=== PATIENT | male | born 1955 | race Caucasian/White ===

== ENCOUNTER 2020-08-24 14:48 | Outpatient (REF) | payer OTHER, SELFPAY ==
[2020-08-24 15:14] LABS: MANUAL DIFF FLAG NO
[2020-08-24 15:16] LABS: Basophils Absolute Auto 0.1 X10*3/uL (0.0-0.2); Basophils Percent Auto 0.4 % (0-2); Eosinophils Absolute Auto 0.4 X10*3/uL (0.0-0.4); Eosinophils Percent Auto 3.4 % (0-4); Hematocrit 35.3 % (42-52); Hemoglobin 11.6 g/dl (14.0-18.0); Imm Gran Abs Auto 0.17 X10*3/uL (0.00-0.03); Imm Gran Pct Auto 1.5 % (0.0-0.4); Lymphocytes Absolute Auto 3.5 X10*3/uL (1.2-4.9); Lymphocytes Percent Auto 31.2 % (20-40); Mean Corpuscular HGB Conc 32.9 g/dl (31.0-36.0); Mean Corpuscular Hemoglobin 32.7 pg (27.0-33.0); Mean Corpuscular Volume 99.4 fL (80-98); Mean Platelet Volume 10.3 fL (9.4-12.4); Monocytes Absolute Auto 1.4 X10*3/uL (0.1-1.2); Neutrophils Absolute Auto 5.8 X10*3/uL (2.0-8.3); Neutrophils Percent Auto 51.5 % (45-73); Platelet Count 321 X10*3/uL (160-400); Red Blood Count 3.55 X10*6/uL (4.60-5.80); Red Cell Distribution Width 17.3 % (11.0-16.0); White Blood Count 11.2 X10*3/uL (4.8-10.8)
[2020-08-24 15:42] LABS: Anion Gap 13 (12-20); Blood Urea Nitrogen 12 mg/dL (9-16); Calcium 8.8 mg/dL (8.4-10.2); Carbon Dioxide 31 mmol/L (22-29); Chloride 101 mmol/L (96-108); Estimated Glomerular Filt Rate > 60; Potassium 4.9 mmol/L (3.3-5.1); Sodium 140 mmol/L (135-145)
[2020-08-24 16:03] LABS: Thyroid Stimulating Hormone 1.17 uIU/mL (0.32-4.0)
== END 2020-08-24 14:49 | disposition home or self-care (01) ==
LOC: HO.LAB 14:48
PROVIDERS: Visit Provider Internal Medicine Hypertension Specialist
DX: N18.30 Chronic kidney disease, stage 3 unspecified (principal)
CPT/HCPCS: 36415; 80051; 82310; 82565; 84443; 84520; 85025

== ENCOUNTER 2021-04-07 14:49 | Outpatient (REF) | payer OTHER, SELFPAY ==
[2021-04-07 15:41] LABS: Anion Gap 10 (12-20); Blood Urea Nitrogen 11 mg/dL (9-16); Calcium 9.2 mg/dL (8.4-10.2); Carbon Dioxide 29 mmol/L (22-29); Chloride 106 mmol/L (96-108); Estimated Glomerular Filt Rate > 60; Glucose Random 95 mg/dL (60-115); Potassium 4.5 mmol/L (3.3-5.1); Sodium 140 mmol/L (135-145)
== END 2021-04-07 14:50 | disposition home or self-care (01) ==
LOC: HO.LAB 14:49
PROVIDERS: PCP Internal Medicine; Visit Provider Internal Medicine Hypertension Specialist
DX: I10 Essential (primary) hypertension (principal)
CPT/HCPCS: 36415; 80048

== ENCOUNTER 2021-06-24 14:22 | Emergency (ER) | payer OTHER, SELFPAY ==
--- NOTE | ~2021-06-24 | XR_ITS ---
EXAMINATION: XR CHEST CLINICAL INFORMATION: Pain COMPARISON: None TECHNIQUE: 2 views of the chest were obtained. FINDINGS: Cardiac leads overlie the chest. Prominent fat pad along the right cardiophrenic margin. No consolidation, edema, or effusion. No pneumothorax. The cardiomediastinal silhouette is normal in size. No acute osseous abnormality. XR/XR chest 2V IMPRESSION: No acute pulmonary finding.
--- NOTE | ~2021-06-24 | CT_ITS ---
EXAMINATION: CT CERVICAL SPINE WITHOUT CONTRAST CLINICAL INFORMATION: Fall with trauma COMPARISON: None TECHNIQUE: Axial CT scanning of the cervical spine without intrathecal contrast. Coronal and sagittal reconstructions. This CT examination was performed using dose optimization techniques as appropriate, variously including the following: *Automated exposure control *Adjustment of mA and/or kV according to patient size (this includes techniques or standardized protocols for targeted exams where dose is matched to indication/reason for exam; i.e. extremities or head) *Use of iterative reconstruction technique DLP: 384.53 mGy-cm FINDINGS: There is a left-sided subcutaneous air present within the scalp. The pterygoid plates are noted to be fractured bilaterally. Visualized mastoid air cells and paranasal sinuses are aerated. Paraspinal muscle fat planes are maintained. Lung apices unremarkable. No acute cervical spine fracture is identified. There is severe narrowing of the C6-C7 disc space with marginal spurring and some bilateral anterior neural foraminal encroachment from spurring of the joints of Luschka. There is some mild degenerative spurring present at C4-T1. CT/CT cervical spine wo con IMPRESSION: Bilateral pterygoid plate fractures No acute cervical spine fracture.
--- NOTE | ~2021-06-24 | CT_ITS ---
EXAMINATION: CT HEAD, NONCONTRAST CT FACIAL BONES CLINICAL INFORMATION: Fall, trauma COMPARISON: None TECHNIQUE: Contiguous axial imaging was performed from the skull base to vertex without intravenous administration of contrast. Axial CT facial bones also performed without contrast. Additional 2-D coronal and sagittal reformatted images are generated on the CT workstation for both exams and uploaded to PACS. This CT examination was performed using dose optimization techniques as appropriate, variously including the following: *Automated exposure control *Adjustment of mA and/or kV according to patient size (this includes techniques or standardized protocols for targeted exams where dose is matched to indication/reason for exam; i.e. extremities or head) *Use of iterative reconstruction technique DLP: 792 mGy-cm (head) 392 mGy-cm (facial) FINDINGS: CT head: There is no intracranial hemorrhage, hematoma, or extra-axial fluid collection. The ventricles are normal in size. There is no hydrocephalus, edema, or mass effect. The alex-white matter differentiation appears well preserved . There is no visible acute territorial infarct or mass lesion. The calvarium appears intact. There is no pneumocephalus. The middle ears and mastoids are well-aerated and clear. CT facial bones: There are multiple bilateral fractures mid face. There are comminuted fractures of the left and right nasal bones with leftward displacement. The pterygoid plates are both fractured. There are bilateral fractures of the maxillary sinuses, including bilateral anterior cruz and medial and posterior lateral cruz. The orbital rims and floors appear intact. The zygomatic arches appear intact. No visible mandible fracture. Anterior maxillary spine intact. The globes and retrobulbar soft tissues are unremarkable. No orbital hematoma or orbital emphysema. Extensive subcutaneous emphysema extends from the left maxillary sinus fracture around the left lateral face and upward within the left lateral scalp soft tissues. There is lesser subcutaneous emphysema bilateral anterior cheeks. Bilateral maxillary sinus fluid levels. Parapharyngeal soft tissues are unremarkable. Craniocervical junction unremarkable. CT/CT facial bones wo con IMPRESSION: 1. Multiple bilateral fractures mid face including nasal bones, pterygoid plates, and bilateral maxillary sinuses. Extensive subcutaneous emphysema on left, lesser on right. 2. No acute intracranial hemorrhage. Brain unremarkable. Calvarium appears intact.
--- NOTE | ~2021-06-24 | XR_ITS ---
EXAMINATION: XR HAND, RIGHT CLINICAL INFORMATION: Pain. Trauma. COMPARISON: None TECHNIQUE: PA, lateral, and oblique views of the right hand. FINDINGS: No fracture or dislocation. Alignment is anatomic. Joint spaces are maintained. Prominent dorsal soft tissue swelling at the metacarpophalangeal joint level. XR/XR hand RT min 3V IMPRESSION: Soft tissue swelling at the dorsum of the hand. No fracture or malalignment.
[2021-06-24 14:38] VITALS: BP 133/74; PULSE 55; O2SAT 100
[2021-06-24 14:47] VITALS: BP 128/76; PULSE 54; RESP 18; TEMP 36.9; O2SAT 99; BMI 21.7
--- NOTE | 2021-06-24 15:01 | ECG_ITS ---
Test Reason : PREVIOUS STEMI Blood Pressure : / mmHG Vent. Rate : 057 BPM Atrial Rate : 000 BPM P-R Int : 000 ms QRS Dur : 152 ms QT Int : 504 ms P-R-T Axes : 000 031 052 degrees QTc Int : 490 ms Artifact in tracing Probably sinus rhythm Right bundle branch block Cannot rule out Inferior infarct , age undetermined Abnormal ECG No previous ECGs available Referred By: Inderjit Alegria Electronically Signed By:REX BLANCHARD
--- NOTE | 2021-06-24 15:04 | ED_ITS ---
HPI - Fall General Chief Complaint: Fall Stated Complaint: TRIP W/FALL ON FACE Time Seen by Provider: 06/24/21 15:01 Source: patient Limitations: no limitations History of Present Illness HPI Narrative: Patient presents to the ER after recent fall. Patient was brought via EMS for emergent care. Patient states he tripped on some sand check be on the sidewalk. Landing on his right hand and face planning. Positive nasal swelling of the lip swelling and bleeding. Positive bleeding to the right hand and pain. Patient denies loss of consciousness although he is a difficult historian. Patient states he has a history of OK in the past. Patient denies headache. Patient's symptoms are moderate pain is 7/10 and states his face hurt it is his hand hurts. Patient is unsure if he is on blood thinners. 3:34 p.m. Elvira has arrived in his helpful in the history. believes patient likely fell secondary to the twitching or is he having some petite mal seizures. approximately 1 and half years ago suffered an OK in her rest and CPR was not immediately performed. Patient recovered from the OK but does have a history of anoxic brain injury. Patient also has a known seizure disorder which he is seen by Dr. Hernandez for has been having worsening twitching lately in question seizures. Patient is on 200 mg of lamotrigine a day. For seizures. Related Data Previous Rx's Medication Instructions Recorded oxycodone-acetaminophen 5 mg-325 1 tab PO Q4-6H PRN #20 tab 06/24/21 mg tablet (Percocet) Allergies Allergy/AdvReac Type Severity Reaction Status Date / Time No Known Allergies Allergy Unverified 03/19/20 16:05 Review of Systems Constitutional: Constitutional: Denies chills, Denies fever(s), Denies headache(s) and Denies malaise Eyes: Eyes: Denies diplopia and Denies loss of vision ENT: Denies headache(s) and Reports nose pain Cardiovascular: Cardiovascular: Denies chest pain and Denies dyspnea Respiratory: Respiratory: Denies cough and Denies dyspnea Gastrointestinal: Gastrointestinal: Denies nausea and Denies vomiting Musculoskeletal: Comments: Right hand pain Neurologic: Denies headache(s) and Denies loss of vision [facility] Past Medical History Medical History Cardiac arrest Social History Social History Advance Directives: No Advance Directives Information Provided: Yes Physical Exam Vital Signs: Vital Signs: Last Vital Signs Temp 98.4 F 06/24/21 14:47 Pulse 58 06/24/21 17:23 Resp 16 06/24/21 17:23 BP 127/77 06/24/21 17:23 Pulse Ox 100 06/24/21 17:23 BMI result Body Mass Index 21.7 vital signs have been reviewed as normal and appeared to be correct. Blood pressure normal. Heart rate normal. Respiration rate normal. Temperature normal. Oxygen saturation normal. Appearance: Alert. Oriented X3. No acute distress. Head: Normal external exam. Patient has an abrasion noted on the upper lip. Eyes: PERRLA. EOMI. No sign of entrapment ENT: Oropharynx is clear positive nasal swelling bloody discharge from nasal nares no septal hematoma noted. Diffuse facial tenderness. Front upper incisor positive tooth chipped slight tenderness to the touch no obvious oral laceration noted in the oral pharynx. Chipped tooth likely 8 or 9 Neck: Patient has no midline tenderness on cervical exam range of motion is somewhat decreased. CVS: Heart regular rate and rhythm no murmurs and rubs Respiratory: Breath sounds are clear to auscultation bilaterally. No accessory muscle use noted. Abdomen: Soft nontender abdomen is flat no rebound or guarding no ecchymosis noted Back: Full range of motion of back. Skin: Abrasion noted to the upper lip. Slight abrasion noted to the nasal bridge. Extremities: Right dorsum of the hand is ecchymotic some abrasions noted to the 2nd 3rd and 4th MCPs positive tenderness Neuro: Patient is alert oriented tribal delegate is equal bilaterally patient has a tremor on the right side is at baseline. 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 CTs of the head face neck are pending. EKG and lab work is pending. Will attempt to get in touch with patient's secondary to patient being a poor historian. Will also check orthostatics at this time. 3:36 p.m. is here at this time is very helpful historian. Patient is on Plavix and aspirin daily unknown if there is any medications such as Coumadin or other anticoagulants. 4:45 p.m. case discussed with Dr. Frazier will call [facility] [place] line discussed case with Trauma at this time. We will upload CT scans and plain films at this time. For evaluation 5:51 p.m. Awaiting callback from [facility] [place]. Patient does have noted have elevated white count with no obvious source chest x-ray is negative UA is negative question secondary to her trauma. 6:20 p.m. Call placed to [facility] [place] line the images have been uploaded they will be calling us back shortly. 6:33 p.m. case discussed with oral maxillofacial positive surgeon Dr. Jesus Hi from [facility] – [place] at this time patient does not warrant a trauma transfer. Dr. Hi will be able see him in follow-up. Recommends Augmentin on an an algesic. Also case discussed with patient and if symptoms worsen to return to return. Dr. Hi will be able see the patient Monday next week. 10 mg oxycodone p.o. [place] reviewed no prescriptions fine. - Fall Lab Data Result diagrams: 06/24/21 15:45 06/24/21 15:45 Labs: Lab Results 06/24/21 06/24/21 06/24/21 Range/Units 15:45 15:45 15:45 WBC 15.5 H (4.8-10.8) X10*3/uL RBC 3.67 L (4.60-5.80) X10*6/uL Hgb 11.1 L (14.0-18.0) g/dl Hct 34.6 L (42.0-52.0) % MCV 94.3 (80.0-98.0) fL MCH 30.2 (27.0-33.0) pg MCHC 32.1 (31.0-36.0) g/dl RDW 16.7 H (11.0-16.0) % Plt Count 436 H (160-400) X10*3/uL MPV 9.6 (9.4-12.4) fL Immature Gran % (Auto) 0.5 H (0.0-0.4) % Neut % (Auto) 81.0 H (45-73) % Lymph % (Auto) 13.1 L (20-40) % [place] % (Auto) 4.8 (2-11) % Eos % (Auto) 0.4 (0-4) % Baso % (Auto) 0.2 (0-2) % Lymph # (Auto) 2.0 (1.2-4.9) X10*3/uL [place] # (Auto) 0.8 (0.1-1.2) X10*3/uL Eos # (Auto) 0.1 (0.0-0.4) X10*3/uL Baso # (Auto) 0.0 (0.0-0.2) X10*3/uL Abs Immat Gran (auto) 0.07 H (0.00-0.03) X10*3/uL Absolute Neuts (auto) 12.6 H (2.0-8.3) x10*3/uL Absolute Nucleated RBC 0.000 (0.0-0.012) X10*3/uL Nucleated RBC % (auto) 0.0 (0.0-0.2) /100WBC PT (9.9-13.0) SEC INR (0.9-1.1) Sodium 141 (135-145) mmol/L Potassium 4.7 (3.3-5.1) mmol/L Chloride 109 H (96-108) mmol/L Carbon Dioxide 27 (22-29) mmol/L Anion Gap 10 L (12-20) BUN 14 (9-16) mg/dL Creatinine 1.00 (0.5-1.4) mg/dL Estim Creat Clear Calc 80.0 Estimated GFR > 60 Random Glucose 99 (60-115) mg/dL Calcium 8.9 (8.4-10.2) mg/dL Total Bilirubin 0.4 (0.0-1.0) mg/dL AST 38 H (5-37) U/L ALT 52 H (0-40) U/L Alkaline Phosphatase 149 H (39-117) U/L Troponin I High Sens < 3.5 (<3.5-35.0) ng/L Total Protein 6.9 (6.5-8.0) g/dL Albumin 4.1 (3.5-5.0) g/dL Urine Color Urine Appearance Urine pH (5.0-8.0) Ur Specific [place] (1.005-1.025) Urine Protein (NEG-TRACE) MG/DL Urine Glucose (UA) (NEG) MG/DL Urine Ketones (NEG) MG/DL Urine Blood (NEG) Urine Nitrite (NEG) Ur Leukocyte Esterase (NEG) 06/24/21 06/24/21 Range/Units 15:45 17:22 WBC (4.8-10.8) X10*3/uL RBC (4.60-5.80) X10*6/uL Hgb (14.0-18.0) g/dl Hct (42.0-52.0) % MCV (80.0-98.0) fL MCH (27.0-33.0) pg MCHC (31.0-36.0) g/dl RDW (11.0-16.0) % Plt Count (160-400) X10*3/uL MPV (9.4-12.4) fL Immature Gran % (Auto) (0.0-0.4) % Neut % (Auto) (45-73) % Lymph % (Auto) (20-40) % [place] % (Auto) (2-11) % Eos % (Auto) (0-4) % Baso % (Auto) (0-2) % Lymph # (Auto) (1.2-4.9) X10*3/uL [place] # (Auto) (0.1-1.2) X10*3/uL Eos # (Auto) (0.0-0.4) X10*3/uL Baso # (Auto) (0.0-0.2) X10*3/uL Abs Immat Gran (auto) (0.00-0.03) X10*3/uL Absolute Neuts (auto) (2.0-8.3) x10*3/uL Absolute Nucleated RBC (0.0-0.012) X10*3/uL Nucleated RBC % (auto) (0.0-0.2) /100WBC PT 11.6 (9.9-13.0) SEC INR 1.0 (0.9-1.1) Sodium (135-145) mmol/L Potassium (3.3-5.1) mmol/L Chloride (96-108) mmol/L Carbon Dioxide (22-29) mmol/L Anion Gap (12-20) BUN (9-16) mg/dL Creatinine (0.5-1.4) mg/dL Estim Creat Clear Calc Estimated GFR Random Glucose (60-115) mg/dL Calcium (8.4-10.2) mg/dL Total Bilirubin (0.0-1.0) mg/dL AST (5-37) U/L ALT (0-40) U/L Alkaline Phosphatase (39-117) U/L Troponin I High Sens (<3.5-35.0) ng/L Total Protein (6.5-8.0) g/dL Albumin (3.5-5.0) g/dL Urine Color YELLOW Urine Appearance HAZY Urine pH 7.0 (5.0-8.0) Ur Specific [place] 1.020 (1.005-1.025) Urine Protein NEG (NEG-TRACE) MG/DL Urine Glucose (UA) NEG (NEG) MG/DL Urine Ketones NEG (NEG) MG/DL Urine Blood NEG (NEG) Urine Nitrite NEG (NEG) Ur Leukocyte Esterase NEG (NEG) Imaging Data CT neck: Radiologist's impression: [place] [address] CT Scan Report Signed Patient: Will Nam MR#: [id number] : 1955 Acct:[id number] Age/Sex: 65 / M ADM Date: 06/24/21 Loc: .ED Attending Dr: Ordering Physician: Inderjit Alegria Date of Service: 06/24/21 Procedure(s): CT cervical spine wo con Accession Number(s): [id number] cc: Inderjit Alegria ~ EXAMINATION: CT CERVICAL SPINE WITHOUT CONTRAST CLINICAL INFORMATION: Fall with trauma? COMPARISON: None? TECHNIQUE: Axial CT scanning of the cervical spine without intrathecal contrast. Coronal and sagittal reconstructions.? This CT examination was performed using dose optimization techniques as appropriate, variously including the following: *Automated exposure control *Adjustment of mA and/or kV according to patient size (this includes techniques or standardized protocols for targeted exams where dose is matched to indication/reason for exam; i.e. extremities or head) *Use of iterative reconstruction technique DLP: 384.53 mGy-cm FINDINGS: There is a left-sided subcutaneous air present within the scalp. The pterygoid plates are noted to be fractured bilaterally. Visualized mastoid air cells and paranasal sinuses are aerated. Paraspinal muscle fat planes are maintained. Lung apices unremarkable. No acute cervical spine fracture is identified. There is severe narrowing of the C6-C7 disc space with marginal spurring and some bilateral anterior neural foraminal encroachment from spurring of the joints of Luschka. There is some mild degenerative spurring present at C4-T1. CT/CT cervical spine wo con IMPRESSION: Bilateral pterygoid plate fractures ? No acute cervical spine fracture.? ? ? Dictated By: Kiran Beaver MD Signed By: <Electronically signed by Kiran Beaver MD in OV> 06/24/21 1644 DD/ 1559 TD/TT:? [employer]: CT scan - head: Radiologist's impression: [address] [address] [address] Scan Report Signed Patient: Will Nam MR#: [id number] : 1955 Acct:[id number] Age/Sex: 65 / M ADM Date: 06/24/21 Loc: .ED Attending Dr: Ordering Physician: Inderjit Alegria Date of Service: 06/24/21 Procedure(s): CT facial bones wo con Accession Number(s): [id number] cc: Inderjit Alegria ~ EXAMINATION: CT HEAD, NONCONTRAST CT FACIAL BONES CLINICAL INFORMATION: Fall, trauma? COMPARISON: None? TECHNIQUE: Contiguous axial imaging was performed from the skull base to vertex without intravenous administration of contrast. Axial CT facial bones also performed without contrast. Additional 2-D coronal and sagittal reformatted images are generated on the CT workstation for both exams and uploaded to PACS. This CT examination was performed using dose optimization techniques as appropriate, variously including the following: *Automated exposure control *Adjustment of mA and/or kV according to patient size (this includes techniques or standardized protocols for targeted exams where dose is matched to indication/reason for exam; i.e. extremities or head) *Use of iterative reconstruction technique DLP: 792 mGy-cm (head) 392 mGy-cm (facial) FINDINGS: CT head: There is no intracranial hemorrhage, hematoma, or extra-axial fluid collection.? The ventricles are normal in size. There is no hydrocephalus, edema, or mass effect.? The alex-white matter differentiation appears well preserved . There is no visible acute territorial infarct or mass lesion. The calvarium appears intact. There is no pneumocephalus. The middle ears and mastoids are well-aerated and clear. CT facial bones: There are multiple bilateral fractures mid face. There are comminuted fractures of the left and right nasal bones with leftward displacement. The pterygoid plates are both fractured. There are bilateral fractures of the maxillary sinuses, including bilateral anterior cruz and medial and posterior lateral cruz. The orbital rims and floors appear intact. The zygomatic arches appear intact. No visible mandible fracture. Anterior maxillary spine intact. The globes and retrobulbar soft tissues are unremarkable. No orbital hematoma or orbital emphysema. Extensive subcutaneous emphysema extends from the left maxillary sinus fracture around the left lateral face and upward within the left lateral scalp soft tissues. There is lesser subcutaneous emphysema bilateral anterior cheeks. Bilateral maxillary sinus fluid levels. Parapharyngeal soft tissues are unremarkable. Craniocervical junction unremarkable. CT/CT facial bones wo con IMPRESSION: 1. Multiple bilateral fractures mid face including nasal bones, pterygoid plates, and bilateral maxillary sinuses. Extensive subcutaneous emphysema on left, lesser on right. ? 2. No acute intracranial hemorrhage. Brain unremarkable. Calvarium appears intact. ? Dictated By: Will Hayden MD Signed By: <Electronically signed by Will Hayden MD in OV> 06/24/21 1631 DD/ 1559 TD/TT:? [employer]: [facility] Chest x-ray: Radiologist's impression: [address] [address] XRay Report Signed Patient: Will Nam MR#: [id number] : 1955 Acct:[id number] Age/Sex: 65 / M ADM Date: 06/24/21 Loc: HO.ED Attending Dr: Ordering Physician: Inderjit Alegria Date of Service: 06/24/21 Procedure(s): XR chest 2V Accession Number(s): [id number] cc: Inderjit Alegria ~ EXAMINATION: XR CHEST CLINICAL INFORMATION: Pain COMPARISON: None TECHNIQUE: 2 views of the chest were obtained. FINDINGS: Cardiac leads overlie the chest. Prominent fat pad along the right cardiophrenic margin. No consolidation, edema, or effusion. No pneumothorax. The cardiomediastinal silhouette is normal in size. No acute osseous abnormality. XR/XR chest 2V IMPRESSION: No acute pulmonary finding. Dictated By: Tony Westfall MD Signed By: <Electronically signed by Tony Westfall MD in OV> 06/24/211653 DD/ 163 TD/TT:? [employer]: RADHA hand: Radiologist's impression: [address] [address] XRay Report Signed Patient: Will Nam MR#: [id number] : 1955 Acct:[id number] Age/Sex: 65 / M ADM Date: 06/24/21 Loc: .ED Attending Dr: Ordering Physician: Inderjit Alegria Date of Service: 06/24/21 Procedure(s): XR hand RT min 3V Accession Number(s): [id number] cc: Inderjit Alegria ~ EXAMINATION: XR HAND, RIGHT CLINICAL INFORMATION: Pain. Trauma.? COMPARISON: None? TECHNIQUE: PA, lateral, and oblique views of the right hand. FINDINGS: No fracture or dislocation. Alignment is anatomic. Joint spaces are maintained. Prominent dorsal soft tissue swelling at the metacarpophalangeal joint level.? XR/XR hand RT min 3V IMPRESSION: Soft tissue swelling at the dorsum of the hand. No fracture or malalignment. Dictated By: Tony Westfall MD Signed By: <Electronically signed by Tony Westfall MD in OV> 06/24/211653 DD/ 1634 TD/TT:? [employer]: RADHA ECG Data ECG interpretation date: 06/24/21 ECG interpretation time: 15:38 Prior ECG tracings: not available for review Interpretation: Patient's EKG is 59 with a right bundle branch block no previous to compare at this time. Discharge Plan Discharge Clinical Impression: Closed pterygoid plate fracture Fracture of nasal bone Qualifiers: Encounter type: initial encounter Fracture type: closed Qualified Code(s): S02.2XXA - Fracture of nasal bones, initial encounter for closed fracture Closed fracture of maxillary sinus Qualifiers: Encounter type: initial encounter Qualified Code(s): S02.401A - Maxillary fracture, unspecified side, initial encounter for closed fracture Patient Disposition: Home, Self-Care Instructions: Facial Fracture (ED) Additional Instructions: Call Dr. Hi for follow-up [address] [place] [address] Dr [place], [place] [address] Your case and images were reviewed by Dr. Hi plastic surgery If symptoms worsen return to the ER Return if increase headache or pain. Take antibiotics and analgesics as directed Rest ice soft diet Watch for signs of cerebral spinal fluid leak such as clear discharge from the nose. Prescriptions: New oxycodone-acetaminophen [Percocet] 5-325 mg tablet 1 tab PO Q4-6H PRN (Reason: severe pain (scale score 7-10)) Qty: 20 RF: 0
[2021-06-24 15:55] LABS: MANUAL DIFF FLAG NO
[2021-06-24 15:57] LABS: Basophils Percent Auto 0.2 % (0-2); Eosinophils Absolute Auto 0.1 X10*3/uL (0.0-0.4); Eosinophils Percent Auto 0.4 % (0-4); Hematocrit 34.6 % (42.0-52.0); Hemoglobin 11.1 g/dl (14.0-18.0); Imm Gran Abs Auto 0.07 X10*3/uL (0.00-0.03); Imm Gran Pct Auto 0.5 % (0.0-0.4); Lymphocytes Percent Auto 13.1 % (20-40); Mean Corpuscular HGB Conc 32.1 g/dl (31.0-36.0); Mean Corpuscular Hemoglobin 30.2 pg (27.0-33.0); Mean Corpuscular Volume 94.3 fL (80.0-98.0); Mean Platelet Volume 9.6 fL (9.4-12.4); Monocytes Absolute Auto 0.8 X10*3/uL (0.1-1.2); Monocytes Percent Auto 4.8 % (2-11); Neutrophils Absolute Auto 12.6 x10*3/uL (2.0-8.3); Platelet Count 436 X10*3/uL (160-400); Red Blood Count 3.67 X10*6/uL (4.60-5.80); Red Cell Distribution Width 16.7 % (11.0-16.0); White Blood Count 15.5 X10*3/uL (4.8-10.8)
[2021-06-24 16:02] LABS: Prothrombin Time 11.6 SEC (9.9-13.0)
[2021-06-24 16:12] LABS: Alanine Aminotransferase 52 U/L (0-40); Albumin Level 4.1 g/dL (3.5-5.0); Alkaline Phosphatase 149 U/L (39-117); Anion Gap 10 (12-20); Aspartate Amino Transferase 38 U/L (5-37); Bilirubin Total 0.4 mg/dL (0.0-1.0); Blood Urea Nitrogen 14 mg/dL (9-16); Calcium 8.9 mg/dL (8.4-10.2); Carbon Dioxide 27 mmol/L (22-29); Chloride 109 mmol/L (96-108); Estimated Glomerular Filt Rate > 60; Glucose Random 99 mg/dL (60-115); Potassium 4.7 mmol/L (3.3-5.1); Sodium 141 mmol/L (135-145); Total Protein 6.9 g/dL (6.5-8.0)
[2021-06-24 16:16] LABS: Troponin-I High Sensitivity < 3.5 ng/L (<3.5-35.0)
[2021-06-24 17:23] VITALS: BP 127/77; PULSE 58; RESP 16; O2SAT 100
[2021-06-24 17:43] LABS: Appearance Urine HAZY; Color Urine YELLOW; Glucose Urine UA NEG (NEG); Leukocyte Esterase Urine NEG (NEG); Nitrite Urine NEG (NEG); Urine Blood NEG (NEG); Urine Ketones NEG (NEG); Urine Protein NEG (NEG-TRACE)
[2021-06-24] MEDS: Amoxicillin/Potassium Clav 875 MG TABLET PO (18:59)
[2021-06-24] MEDS: oxyCODONE HCl Immed Release 5 MG TABLET 10 MG PO (18:59)
[2021-06-29 20:27] LABS: Lamotrigine Lamictal 11.9 mcg/mL (4.0-18.0)
== END 2021-06-24 19:20 | disposition home or self-care (01) ==
PROVIDERS: Physician Assistant; Emergency Provider Emergency Medicine
DX: S02.2XXA Fracture of nasal bones, initial encounter for closed fracture (principal); S02.401A Maxillary fracture, unspecified side, initial encounter for closed fracture; S02.19XA Other fracture of base of skull, initial encounter for closed fracture; G40.909 Epilepsy, unspecified, not intractable, without status epilepticus; Z86.74 Personal history of sudden cardiac arrest; Z79.02 Long term (current) use of antithrombotics/antiplatelets; Z79.82 Long term (current) use of aspirin; Z79.899 Other long term (current) drug therapy; W01.0XXA Fall on same level from slipping, tripping and stumbling without subsequent striking against object, initial encounter; Y93.9 Activity, unspecified; Y92.9 Unspecified place or not applicable; Y99.9 Unspecified external cause status
CPT/HCPCS: 36415; 70450; 70486; 71046; 72125; 73130; 80053; 80175; 81003; 84484; 85025; 85610; 93005; 99284

== ENCOUNTER 2021-09-08 14:59 | Outpatient (REF) | payer OTHER, SELFPAY ==
[2021-09-13 08:22] LABS: Lamotrigine Lamictal 16.9 mcg/mL (4.0-18.0)
== END 2021-09-08 15:00 | disposition home or self-care (01) ==
LOC: HO.LAB 14:59
PROVIDERS: PCP Internal Medicine; Visit Provider Psychiatry & Neurology Neurology
DX: G93.1 Anoxic brain damage, not elsewhere classified (principal); G40.909 Epilepsy, unspecified, not intractable, without status epilepticus; Z79.899 Other long term (current) drug therapy
CPT/HCPCS: 36415; 80175

== ENCOUNTER 2023-08-21 14:24 | Outpatient (AMB) | payer MEDICARE, SELFPAY ==
--- NOTE | 2023-08-21 15:33 | MHC.OFFWIV ---
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 Patient's recently got over COVID and tested him this morning finding that he is COVID positive. She is questioning if he needs Paxlovid given comorbidities including history of ME and anoxic brain injury. [facility] Medical History Cardiac arrest Social History Patient Tobacco Use Status: Never used Tobacco Physical Exam Vital Signs: Last Vital Signs Temp 98.6 F 08/21/23 15:48 Pulse 72 08/21/23 15:48 BP 110/70 08/21/23 15:48 Pulse Ox 97 08/21/23 15:48 Oxygen Delivery Method Room Air 08/21/23 15:48 Const General: healthy appearing and no acute distress HEENT Mouth: Normal oral and palatal mucosa present Resp Effort & Inspection: normal respiratory effort and able to speak in complete sentences Auscultation: clear to auscultation bilaterally Cardio Rate: regular rate Rhythm: regular rhythm Assessment & Plan Assessment & Plan (1) COVID: Code(s): U07.1 - COVID-19 Plan Given patient's past medical history will initiate treatment Paxlovid. Patient well-appearing with normal vital signs Medications: New nirmatrelvir-ritonavir 300 mg (150 mg x 2)-100 mg (Paxlovid) take TWO 150 mg tablets of nirmatrelvir with ONE 100 mg tablet of ritonavir twice daily for 5 days PO 30 ea 0RF Coding Level of Care Code Est Pt Level 3 (13775) Diagnoses COVID U07.1
[2023-08-21 15:48] VITALS: BP 110/70; PULSE 72; TEMP 37; O2SAT 97
== END 2023-08-21 16:28 | disposition home or self-care (01) ==
PROVIDERS: PCP Internal Medicine; Visit Provider Emergency Medicine
DX: U07.1 COVID-19 (principal)
CPT/HCPCS: 99213

== ENCOUNTER 2023-09-01 00:48 | Emergency (ER) | payer MEDICARE, SELFPAY ==
--- NOTE | 2023-09-01 | EEG_ITS ---
FINDINGS: The waking background activity consists of low voltage fast frequencies intermixed anteriorly with muscle artifacts. Photic stimulation and hyperventilation were omitted. No focal, lateralizing, or paroxysmal discharges are seen. No definite diagnostic abnormalities are seen on this record. No seizure discharges. Clinical correlation is suggested. MD ADILSON Odell/GEOVANNI / [phone]
--- NOTE | ~2023-09-01 | CT_ITS ---
EXAMINATION: CT HEAD WITHOUT CONTRAST CLINICAL INFORMATION: Acute mental status change. COMPARISON: 06/24/2021 TECHNIQUE: Contiguous axial imaging was performed from the skull base to vertex without intravenous administration of contrast. This CT examination was performed using dose optimization techniques as appropriate, variously including the following: *Automated exposure control *Adjustment of mA and/or kV according to patient size (this includes techniques or standardized protocols for targeted exams where dose is matched to indication/reason for exam; i.e. extremities or head) *Use of iterative reconstruction technique DLP: 640 mGy-cm FINDINGS: There is no evidence of acute intracranial hemorrhage or territorial infarction. No mass effect or midline shift is seen. No extra-axial fluid collections are identified. No hydrocephalus. Patchy periventricular and deep white matter hypoattenuation is consistent with mild small vessel ischemic changes. The osseous structures and soft tissues are normal. The mastoid air cells are clear. Small air-fluid level in the right maxillary sinus. There is depression of the lateral cruz of both maxillary sinuses. CT/CT head/brain wo IV con IMPRESSION: No acute intracranial pathology. Air-fluid level right maxillary sinus.
[2023-09-01 01:05] VITALS: BP 116/71; PULSE 66; PULSE 74; RESP 18; TEMP 36.9; O2SAT 94; O2SAT 96; BMI 21.1
--- NOTE | 2023-09-01 01:54 | ED_ITS ---
HPI - Psych General Chief Complaint: Altered Mental Status Stated Complaint: behavioral Time Seen by Provider: 09/01/23 01:33 Source: family and RN notes reviewed Mode of arrival: EMS Limitations: other (Paranoid ideation) History of Present Illness HPI Narrative: 68-year-old male history of cardiac arrest with anoxic brain injury, episodic seizure disorder, paranoid ideation who presents emergency department for evaluation of paranoid ideation since 06:00 hours yesterday. Patient was not able to tell me why he is here in the emergency department, he kept repeating that he has guitar is at home that he needs to protect. The ED nurse caring for the patient did talk to the patient's and the patient's daughter and got the following information. The patient has had episodes of paranoid ideation in the past but they are brief. Since 06:00 hours yesterday the patient that a flood is coming and he needs to protect his family. He kept trying to leave the house to get the higher ground. He told his family that he want to get a rifle and shoot people and he took a knife in order to protect his family. Safe with the patient being at home and called an ambulance and they convince the patient to come to the hospital since the hospital was on higher ground. Patient was diagnosed with COVID-19 infection on 08/21/2023 (10 days prior). He was started on Paxlovid. Family states the patient has been had ab sounds like seizures which there neurologist felt was secondary to his COVID infection. Related Data Home Medications Medication Instructions Recorded Confirmed lamotrigine 150 mg tablet 150 mg PO BID 08/21/23 losartan 25 mg tablet 25 mg PO DAILY 08/21/23 quetiapine 100 mg tablet mg PO 08/21/23 quetiapine 50 mg tablet mg PO 08/21/23 sertraline 25 mg tablet 25 mg PO DAILY 08/21/23 sertraline 50 mg tablet 50 mg PO DAILY 08/21/23 trazodone 50 mg tablet 50 mg PO BEDTIME 08/21/23 Previous Rx's Medication Instructions Recorded nirmatrelvir 300 mg (150 mg See Rx Instructions PO .COMPLEX 08/21/23 x2)-ritonavir 100 mg tablet,dose #30 ea pack (Paxlovid) Allergies Allergy/AdvReac Type Severity Reaction Status Date / Time No Known Allergies Allergy Verified 08/21/23 15:35 Review of Systems 2 Review of Systems: Yes all other systems are reviewed and are negative [facility] Past Medical History Medical History Cardiac arrest Social History Social History Alcohol intake: never Patient Tobacco Use Status: Never used Tobacco Smoked in Last 30 Days: No Use of substances other than those prescribed or required for medical reasons: Yes Substance Use Type: Marijuana Advance Directives: No Advance Directives Information Provided: No Physical Exam 2 Vital Signs: Vital Signs: Last Vital Signs Temp 98.4 F 09/01/23 01:05 Pulse 66 09/01/23 01:05 Resp 18 09/01/23 01:05 BP 116/71 09/01/23 01:05 Pulse Ox 94 09/01/23 01:05 O2 Del Method Room Air 09/01/23 01:05 BMI result Body Mass Index 21.1 Vital signs were normal Exam: General: Awake, alert in no distress Head: Normocephalic, atraumatic EENT: PERRL, Lids normal, sclera normal, conjunctiva normal, nose normal , ears normal, throat without erythema or exudates Neck: Supple, no adenopathy Lung: breath sounds symmetric, no wheezing, rales or rhonchi Chest: symmetric movement, nontender Heart: regular rate and rhythm, normal S1, S2 no murmurs or rubs Abdomen: soft, non-tender, nondistended, normal bowel sounds Back: no vertebral tenderness, no CVAT Extremities: no deformities, moves all extremities symmetrically Skin: no rashes, no lesion, normal color and warmth Neuro: Awake, alert, oriented to person normal speech, cranial nerves intact, moves all extremities symmetrically, resting tremor Psych: Oriented to person, lacks insight as to why he is here, patient could not recount details about a flood that was coming but he was continually talking about guitar that he needed to protect Medical Decision Making Medical Decision Making MDM Narrative: 68-year-old male history of cardiac arrest with anoxic brain injury, seizure disorder, episodic paranoid ideation who presents emergency department for evaluation of paranoid ideation since 06:00 hours yesterday. Family reported that the patient about a flood that was coming and threatening his family. He made statements that he wanted to get a rifle and shoot people to defend his family. Apparently , he also pulled out a knife to protect his family. Patient was diagnosed with COVID-19 10 days prior and did take a course of Paxlovid. Vital signs were normal. Exam did reveal resting tremor otherwise unremarkable. Differential diagnosis: ?Includes but is not limited to paranoid ideation, electrolyte abnormalities, anemia, alcohol intoxication, drug use Following evaluation was ordered: CBC, CMP, ethanol level, urinalysis, drug screen urine, COVID-19, influenza, RSV, ammonia Course: Start physician observation: Given the patient's paranoid presentation, statements that he wanted to get a rifle to shoot people and that he pulled out a knife to defend his family, the patient was placed on a Section 12. Lab Data 09/01/23 02:07 09/01/23 02:07 Labs: Lab Results 09/01/23 Range/Units 02:07 WBC 9.4 (4.8-10.8) X10*3/uL RBC 3.56 L (4.60-5.80) X10*6/uL Hgb 11.3 L (14.0-18.0) g/dl Hct 32.9 L (42.0-52.0) % MCV 92.4 (80.0-98.0) fL MCH 31.7 (27.0-33.0) pg MCHC 34.3 (31.0-36.0) g/dl RDW 16.0 (11.0-16.0) % Plt Count 519 H (160-400) X10*3/uL MPV 9.4 (9.4-12.4) fL Immature Gran % (Auto) 0.4 (0.0-0.4) % Neut % (Auto) 56.1 (45-73) % Lymph % (Auto) 30.9 (20-40) % [place] % (Auto) 11.2 H (2-11) % Eos % (Auto) 1.0 (0-4) % Baso % (Auto) 0.4 (0-2) % Lymph # (Auto) 2.9 (1.2-4.9) X10*3/uL [place] # (Auto) 1.1 (0.1-1.2) X10*3/uL Eos # (Auto) 0.1 (0.0-0.4) X10*3/uL Baso # (Auto) 0.0 (0.0-0.2) X10*3/uL Abs Immat Gran (auto) 0.04 H (0.00-0.03) X10*3/uL Absolute Neuts (auto) 5.3 (2.0-8.3) x10*3/uL Absolute Nucleated RBC 0.000 (0.0-0.012) X10*3/uL Nucleated RBC % (auto) 0.0 (0.0-0.2) /100WBC Discharge Plan Discharge Clinical Impression: Paranoid ideation, Homicidal ideation Patient Disposition: Still a Patient Prescriptions: No Action quetiapine 50 mg tablet PO sertraline 25 mg tablet 25 mg PO DAILY trazodone 50 mg tablet 50 mg PO BEDTIME lamotrigine 150 mg tablet 150 mg PO BID quetiapine 100 mg tablet PO sertraline 50 mg tablet 50 mg PO DAILY losartan 25 mg tablet 25 mg PO DAILY Paxlovid 300 mg (150 mg x 2)-100 mg tablets,dose pack See Rx Instructions PO .COMPLEX Qty: 30 0RF Rx Instructions: take TWO 150 mg tablets of nirmatrelvir with ONE 100 mg tablet of ritonavir twice daily for 5 days PO
[2023-09-01 02:11] LABS: MANUAL DIFF FLAG NO
[2023-09-01 02:12] LABS: Basophils Percent Auto 0.4 % (0-2); Eosinophils Absolute Auto 0.1 X10*3/uL (0.0-0.4); Hematocrit 32.9 % (42.0-52.0); Hemoglobin 11.3 g/dl (14.0-18.0); Imm Gran Abs Auto 0.04 X10*3/uL (0.00-0.03); Imm Gran Pct Auto 0.4 % (0.0-0.4); Lymphocytes Absolute Auto 2.9 X10*3/uL (1.2-4.9); Lymphocytes Percent Auto 30.9 % (20-40); Mean Corpuscular HGB Conc 34.3 g/dl (31.0-36.0); Mean Corpuscular Hemoglobin 31.7 pg (27.0-33.0); Mean Corpuscular Volume 92.4 fL (80.0-98.0); Mean Platelet Volume 9.4 fL (9.4-12.4); Monocytes Absolute Auto 1.1 X10*3/uL (0.1-1.2); Monocytes Percent Auto 11.2 % (2-11); Neutrophils Absolute Auto 5.3 x10*3/uL (2.0-8.3); Neutrophils Percent Auto 56.1 % (45-73); Platelet Count 519 X10*3/uL (160-400); Red Blood Count 3.56 X10*6/uL (4.60-5.80); White Blood Count 9.4 X10*3/uL (4.8-10.8)
[2023-09-01 02:23] LABS: Ammonia 32 umol/L (13-55)
[2023-09-01 02:32] LABS: Alanine Aminotransferase 28 U/L (0-40); Albumin Level 4.4 g/dL (3.5-5.0); Alkaline Phosphatase 123 U/L (39-117); Anion Gap 14 (12-20); Aspartate Amino Transferase 34 U/L (5-37); Bilirubin Total 0.5 mg/dL (0.0-1.0); Blood Urea Nitrogen 17 mg/dL (9-16); Calcium 9.5 mg/dL (8.4-10.2); Carbon Dioxide 26 mmol/L (22-29); Chloride 103 mmol/L (96-108); Creatinine Clr Calc Pharmacy 67.1; Estimated Glomerular Filt Rate > 60; Ethanol < 10 mg/dL; Glucose Random 114 mg/dL (60-115); Potassium 3.2 mmol/L (3.3-5.1); Sodium 140 mmol/L (135-145); Total Protein 7.6 g/dL (6.5-8.0)
[2023-09-01 02:48] LABS: Influenza A PCR NEGATIVE (Negative); Influenza B PCR NEGATIVE (Negative); Resp Syncy Virus RNA Qual PCR NEGATIVE (Negative); SARS COV2 PCR INHOUSE POSITIVE (Negative)
[2023-09-01] MEDS: Potassium Chloride Packet 20 MEQ PACKET 40 MEQ PO (05:13)
[2023-09-01 05:20] VITALS: BP 144/80; PULSE 63; RESP 14; TEMP 36.8; O2SAT 95
--- NOTE | 2023-09-01 07:08 | PC.NURSE ---
PT biba from home. Family reports pt has become increasingly paranoid believing that he is in a flood, needs to get to higher ground and that he needs to protect his family. PT threatened to get a rifle to shoot people and has been trying to leave his house. Family reports that PT has not been sleeping or eating for the past week. COVID+ 14 days ago and was told by neurologist that he is having covid-induced seizures- family notes seizures to be . HX for Cardiac Arrest and His does not feel safe with him at home.
[2023-09-01 07:15] VITALS: BP 155/73; PULSE 95; RESP 14; TEMP 36.7; O2SAT 96
--- NOTE | 2023-09-01 07:20 | PC.NURSE ---
Assumed care of patient at 0700, patient observed sitting up in bed in room. Pt ambulates with unsteady gait around BH pod. This RN and SIA Alva have had to redirect the patient multiple times back to his room. Pt states he is looking for his and just wants to check on her. This RN explained that his is at home and that he is in the hospital. Pt appears to have short term memory impacted because about 2 minutes later, he re-approached the nurses station requesting to see his . Pt redirected back to bed at this time
[2023-09-01] MEDS: Losartan Potassium 25 MG TABLET PO (07:53)
[2023-09-01] MEDS: Metoprolol Succinate ER 25 MG TAB.ER.24H PO (07:53)
[2023-09-01] MEDS: Sertraline HCL 50 MG TABLET PO (07:53)
[2023-09-01] MEDS: lamoTRIgine 25 MG TABLET 150 MG PO ×2 (07:53→20:47)
[2023-09-01] MEDS: QUEtiapine Fumarate 100 MG TABLET PO ×2 (07:54→20:47)
[2023-09-01] MEDS: Aspirin 81 MG TAB.CHEW PO (07:54)
--- NOTE | 2023-09-01 08:45 | PC.NURSE ---
pharmacy aware of need for clonidine patch- called at 0750
[2023-09-01] MEDS: cloNIDine 0.1 MG PATCH.TDWK TRANSDERMA (09:25)
--- NOTE | 2023-09-01 09:30 | PC.NURSE ---
Clonidine patch placed on upper right arm, pt resting on bed, respirations even and unlabored, no apparent distress
[2023-09-01 13:14] LABS: Appearance Urine Cloudy; Color Urine Yellow; Glucose Urine UA Negative (Negative); Leukocyte Esterase Urine Moderate (2+) (Negative); Nitrite Urine Negative (Negative); UMIC TRIGGER UACC YES; Urine Blood Negative (Negative); Urine Ketones Negative (Negative); Urine Protein Trace mg/dL (Neg-Trace)
[2023-09-01 13:22] LABS: Amphetamine Screen Urine Not Detected (Not Detect); Barbiturates, Urine Not Detected (Not Detect); Benzodiazepines Screen Urine Not Detected (Not Detect); Cannabinoid Screen Urine POSITIVE (Not Detect); Cocaine Screen Urine Not Detected (Not Detect); Fentanyl, urine POSITIVE (Not Detect); Opiate Screen Urine Not Detected (Not Detect); Phencyclidine Screen Urine Not Detected (Not Detect)
[2023-09-01 13:36] LABS: Bacteria Urine None Seen (None Seen); Hyaline Casts Urine 0-2 /LPF (0-2); RBC Urine 0-2 /HPF (0-2); Squamous Epithelial Cell Urine 0-2 /HPF (0-2); UACC Culture Trigger YES; WBC Urine >50 /HPF (0-5)
--- NOTE | 2023-09-01 14:02 | PM.PSYCN ---
History of Present Illness Date of Service: 09/01/2023 Chief Complaint: behavioral Sources of Information: patient interviewed, chart reviewed and crisis/core team assessment reviewed HPI Narrative: Mr. Nam is a 68 year-old male with hx of hypoxic brain injury after WA, cognitive and functional impairments after that. He is at baseline oriented mostly to self. He was brought in by due to increase paranoia, reporting that there was a flood and had to protect his family. he attempted to grab a knife to protect his and family. In the ED, pt not oriented to situation, month, year. He does not know why he is here, although is able to tell this underwriter mortgage loan that he has been told he is in the hospital. Earlier today when assessed by care team he was hyper focused on having to go back home to protect his , while when he met with this underwriter mortgage loan he was not sure as to why he was here and when asked about if he was worried or concern about something he denied. he also appeared more relaxed and mostly worried about not knowing what was going on. He denied SI/HI. He is followed by nerulogy, Dr. Hernandez who had scheduled EEG on 09/03 to rule out epileptic psychosis. does not feel safe taking him how with more active and severe paranoia. [facility] Medical History Cardiac arrest Diagnostics Vital Signs (24Hr): Vital Signs - 24 hr 09/01/23 01:05 09/01/23 05:20 09/01/23 07:15 Temperature 98.4 F 98.2 F 98.1 F Pulse Rate 66 63 95 Respiratory Rate 18 14 14 Blood Pressure 116/71 144/80 H 155/73 H Pulse Oximetry 94 95 96 Oxygen Delivery Method Room Air Room Air Room Air BMI result Body Mass Index 21.1 Labs 09/01/23 02:07 09/01/23 02:07 Labs: Laboratory Results - last 48 hr 09/01/23 09/01/23 02:07 13:06 WBC 9.4 RBC 3.56 L Hgb 11.3 L Hct 32.9 L MCV 92.4 MCH 31.7 MCHC 34.3 RDW 16.0 Plt Count 519 H MPV 9.4 Immature Gran % (Auto) 0.4 Neut % (Auto) 56.1 Lymph % (Auto) 30.9 [place] % (Auto) 11.2 H Eos % (Auto) 1.0 Baso % (Auto) 0.4 Lymph # (Auto) 2.9 [place] # (Auto) 1.1 Eos # (Auto) 0.1 Baso # (Auto) 0.0 Abs Immat Gran (auto) 0.04 H Absolute Neuts (auto) 5.3 Absolute Nucleated RBC 0.000 Nucleated RBC % (auto) 0.0 Sodium 140 Potassium 3.2 L Chloride 103 Carbon Dioxide 26 Anion Gap 14 BUN 17 H Creatinine 1.11 Estim Creat Clear Calc 67.1 Estimated GFR > 60 Random Glucose 114 Calcium 9.5 D Total Bilirubin 0.5 AST 34 ALT 28 Alkaline Phosphatase 123 H Ammonia 32 Total Protein 7.6 Albumin 4.4 Urine Color Yellow Urine Appearance Cloudy Urine pH 6.0 Ur Specific Moore 1.020 Urine Protein Trace Urine Glucose (UA) Negative Urine Ketones Negative Urine Blood Negative Urine Nitrite Negative Ur Leukocyte Esterase Moderate (2+) H Urine RBC 0-2 Urine WBC >50 H Ur Squamous Epith Cells 0-2 Urine Bacteria None Seen Hyaline Casts 0-2 Urine Yeast Present Urine Opiates Screen Not Detected Urine Fentanyl Screen POSITIVE H Ur Barbiturates Screen Not Detected Ur Phencyclidine Scrn Not Detected Ur Amphetamines Screen Not Detected U Benzodiazepines Scrn Not Detected Urine Cocaine Screen Not Detected U Marijuana (THC) Screen POSITIVE H Ethyl Alcohol < 10 Influenza Type A (PCR) NEGATIVE Influenza Type B (PCR) NEGATIVE RSV RNA Qual (PCR) NEGATIVE SARS-CoV-2 RNA (RT-PCR) POSITIVE A Mental Status Exam Mental Status Exam Narrative: Appearance: appears older than stated age, cachectic, in somewhat anxious Behavior: cooperative Psychomotor: bilat pin rolling movement, shuffling gait Speech: mostly clear, normal rate/rhythm/volume, spontaneous TP: mostly linear TC: wondering what is going on Mood: okay Affect: dysphoric SI: denies HI: denies VH/AH: does not appear at this time Delusions: much less perseverative on someone trying to hurt his . insight/judgment: impaired x 2 --> at baseline after hypoxic brain injury s/s to WA. memory/cog: alert, oriented only to self. Medications Medications Current Medications Aspirin (Aspirin 81 Mg Tab.Chew) 81 mg PO DAILY HAIM Last Admin: 09/01/23 07:54 Dose: 81 mg Atorvastatin Calcium (Atorvastatin Calcium 80 Mg Tablet) 80 mg PO BEDTIME [facility] Clonidine (Clonidine 0.1 Mg Patch.Tdwk) 0.1 mg TRANSDERMA Q7D [facility]; Protocol Last Admin: 09/01/23 09:25 Dose: 0.1 mg Lamotrigine (Lamotrigine 25 Mg Tablet) 150 mg PO BID [facility] Last Admin: 09/01/23 07:53 Dose: 150 mg Losartan Potassium (Losartan Potassium 25 Mg Tablet) 25 mg PO DAILY [facility]; Protocol Last Admin: 09/01/23 07:53 Dose: 25 mg Melatonin (Melatonin 3 Mg Tablet) 9 mg PO BEDTIME [facility] Metoprolol Succinate (Metoprolol Succinate Er 25 Mg Tab.Er.24h) 25 mg PO DAILY [facility]; Protocol Last Admin: 09/01/23 07:53 Dose: 25 mg Quetiapine Fumarate (Quetiapine Fumarate 50 Mg Tablet) 50 mg PO DAILY PRN PRN Reason: mood Quetiapine Fumarate (Quetiapine Fumarate 100 Mg Tablet) 100 mg PO BID [facility] Last Admin: 09/01/23 07:54 Dose: 100 mg Sertraline HCl (Sertraline Hcl 50 Mg Tablet) 50 mg PO DAILY [facility] Last Admin: 09/01/23 07:53 Dose: 50 mg Trazodone HCl (Trazodone Hcl 50 Mg Tablet) 50 mg PO BEDTIME [facility] Allergies Allergies Allergy/AdvReac Type Severity Reaction Status Date / Time No Known Allergies Allergy Verified 08/21/23 15:35 Assessment & Plan Assessment & Plan (1) Major neurocognitive disorder as late effect of traumatic brain injury with behavioral disturbance: Status: Acute Code(s): S06.9X9S - Unspecified intracranial injury with loss of consciousness of unspecified duration, sequela; F02.818 - Dementia in other diseases classified elsewhere, unspecified severity, with other behavioral disturbance Plan Mr. Nam is a 68 year-old male with hx of anoxic brain following WA in 2020. Since then he has had multiple cognitive and memory decline. He is oriented to self. He was brought to [facility] [place] ED due to increase paranoid thinking his family was in danger and grabbed knife to protect them. Labs mostly unremarkable. Head CT with microvascular changes and atrophy. He sees neurology, Dr. Hernandez, who had scheduled eeg to r/o epileptic psychosis. Given behavioral components of his underlying delusions and safety concerns, will recommend inpt admission for stabilization. WIll also order egg to r/o epileptic psychosis--> as tx and interventions will be different. Total time managing care of this patient today ____ minutes.
--- NOTE | 2023-09-01 14:36 | MHC.CARE ---
Jasmin seen by CARE team. Referred for psych consult. Consult ongoing, patient to board in the ED and will be seen daily by CARE team until sx improve or sanjeev psych is determined to be needed. Patient's and ED attending MD Swensonu aware.
[2023-09-01 17:37] VITALS: BP 132/105; PULSE 68; RESP 20; TEMP 36.8; O2SAT 96
--- NOTE | 2023-09-01 19:49 | PC.NURSE ---
patient appears to remain at rest at present respirations are even and unlabored patient appears in no distress.
[2023-09-01] MEDS: traZODone HCL 50 MG TABLET PO (20:47)
[2023-09-01] MEDS: Melatonin 3 MG TABLET 9 MG PO (20:47)
[2023-09-01] MEDS: Atorvastatin Calcium 80 MG TABLET PO (20:47)
[2023-09-02] MEDS: Metoprolol Succinate ER 25 MG TAB.ER.24H PO (08:16)
[2023-09-02] MEDS: Aspirin 81 MG TAB.CHEW PO (08:17)
[2023-09-02] MEDS: QUEtiapine Fumarate 100 MG TABLET PO ×2 (08:17→21:37)
[2023-09-02] MEDS: Sertraline HCL 50 MG TABLET PO (08:17)
[2023-09-02] MEDS: Losartan Potassium 25 MG TABLET PO (08:17)
[2023-09-02] MEDS: lamoTRIgine 25 MG TABLET 150 MG PO ×2 (08:17→21:37)
--- NOTE | 2023-09-02 12:23 | MHC.CARE ---
RAD team conducted statewide search, unfortunately on beds available due to pt being covid+, RAD Team will continue search tomorrow (09/02) if deemed appropraite
--- NOTE | 2023-09-02 18:41 | PC.NURSE ---
This nurse earlier offered bathroom to patient throughout shift patient has not gone to bathroom x 8 hours. Patient has had to be redirected back to room several times. Spoke with daughter regarding patients baseline states patient was having frequent seizure like activity up to the day he was brought to [facility]. Upon observing patient this nurse is noticing frequent pill rolling activity with fingers and slight bobbing of head. This concern was brought to Dr. Reese's attention. MD stated he would check on patient. Patient is refusing meals, this nurse encouraged po fluids patient took several cups of lilli joey. This nurse will encourage po ensure to help with nutrition.
--- NOTE | 2023-09-02 19:14 | PC.NURSE ---
patient appears to remain at rest presently, paitent appears relaxed and content. patient appears in no distress.
[2023-09-02] MEDS: Potassium Chloride Packet 20 MEQ PACKET 40 MEQ PO (21:37)
[2023-09-02] MEDS: cefuroxime axetiL 500 MG TABLET PO (21:37)
[2023-09-02] MEDS: Melatonin 3 MG TABLET 9 MG PO (21:37)
[2023-09-02] MEDS: Atorvastatin Calcium 80 MG TABLET PO (21:37)
[2023-09-02] MEDS: traZODone HCL 50 MG TABLET PO (21:37)
[2023-09-03 00:57] VITALS: BP 154/90; PULSE 84; RESP 16; TEMP 36.7; O2SAT 97
--- NOTE | 2023-09-03 07:44 | PC.NURSE ---
pt is ambulating freely in room. pt repeatedly asking for clothes despite being in hosptial attire. pt is easily redirectable and is cooperative but appears confused . care team has reevaled, plan is for [facility] psych bed search still.
[2023-09-03] MEDS: lamoTRIgine 25 MG TABLET 150 MG PO ×2 (09:41→20:36)
[2023-09-03] MEDS: Sertraline HCL 50 MG TABLET PO (09:41)
[2023-09-03] MEDS: QUEtiapine Fumarate 100 MG TABLET PO ×2 (09:41→20:36)
[2023-09-03] MEDS: Losartan Potassium 25 MG TABLET PO (09:46)
[2023-09-03] MEDS: cefuroxime axetiL 500 MG TABLET PO ×2 (09:47→20:36)
[2023-09-03] MEDS: Aspirin 81 MG TAB.CHEW PO (09:47)
[2023-09-03] MEDS: Metoprolol Succinate ER 25 MG TAB.ER.24H PO (09:47)
[2023-09-03 09:53] VITALS: BP 138/99; PULSE 105; TEMP 36.9; O2SAT 97
--- NOTE | 2023-09-03 15:42 | MHC.CARE ---
RAD team conducted statewide search, unfortunately on beds available due to pt being covid+, RAD Team will continue search tomorrow (09/03) if deemed appropraite
[2023-09-03 20:30] VITALS: BP 146/81; PULSE 75; RESP 16; TEMP 36.4; O2SAT 95
--- NOTE | 2023-09-03 20:33 | MHC.EDTECH ---
this tech assumed care at 1900. PT is calm and cooperative but confused asking why he is in trouble and asking if this is real life. Vitals taken at this time.
[2023-09-03] MEDS: Melatonin 3 MG TABLET 9 MG PO (20:36)
[2023-09-03] MEDS: Atorvastatin Calcium 80 MG TABLET PO (20:36)
[2023-09-03] MEDS: traZODone HCL 50 MG TABLET PO (20:36)
--- NOTE | 2023-09-04 04:25 | PC.NURSE ---
Pt has not slept much throughout the night, coming out of his room several times asking for his sneakers. Pt was informed that we do not need sneakers here and that it is time for bed. Pt was easily redirected back into bed. Is currently laying supine on the bed awake.
--- NOTE | 2023-09-04 07:17 | PC.NURSE ---
pt seemingly confused. alert and oriented to name only. pt continuously attempting to get out of doors asking why they are locked? 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 pt states he does not know what he looks like but once he sees him, he will know him. pt easily redirected away from the doors but walks to the other end of the pod and attempts to open the other door. pt continuously pacing back and forth. calm/cooperative.
[2023-09-04 08:05] VITALS: BP 130/88; PULSE 94; RESP 20; TEMP 36.8; O2SAT 96
[2023-09-04] MEDS: QUEtiapine Fumarate 100 MG TABLET PO ×2 (08:20→20:07)
[2023-09-04] MEDS: lamoTRIgine 25 MG TABLET 150 MG PO ×2 (08:20→20:07)
[2023-09-04] MEDS: Sertraline HCL 50 MG TABLET PO (08:20)
[2023-09-04] MEDS: Losartan Potassium 25 MG TABLET PO (09:00)
[2023-09-04] MEDS: cefuroxime axetiL 500 MG TABLET PO ×2 (09:00→20:07)
[2023-09-04] MEDS: Metoprolol Succinate ER 25 MG TAB.ER.24H PO (09:00)
[2023-09-04] MEDS: Aspirin 81 MG TAB.CHEW PO (09:00)
--- NOTE | 2023-09-04 09:09 | PC.NURSE ---
pt medicated per provider order. pt having EEG completed at this time. pt remains calm/cooperative.
--- NOTE | 2023-09-04 10:48 | PM.PSYCN ---
History of Present Illness Date of Service: 09/04/2023 Chief Complaint: behavioral Reason for Consult: increase paranoia Discussed with referring provider: Yes Sources of Information: patient interviewed, chart reviewed and crisis/core team assessment reviewed HPI Narrative: Interim Hx: pt did not have any episodes of combative behaviors or agitation. No overt paranoid delusions but pt has severe cognitive impairments at baseline affecting his ability to retain new information and orientation. He had EEG this morning. 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 His gait is very unsteady which reports has been this way since he had anoxic brain injury. [facility] Medical History Cardiac arrest Diagnostics Vital Signs (24Hr): Vital Signs - 24 hr 09/03/23 20:30 09/04/23 08:05 Temperature 97.6 F 98.3 F Pulse Rate 75 94 Respiratory Rate 16 20 Blood Pressure 146/81 H 130/88 Pulse Oximetry 95 96 Oxygen Delivery Method Room Air Room Air BMI result Body Mass Index 21.1 Labs 09/01/23 02:07 09/01/23 02:07 Imaging Radiology Impressions: ITS Impressions Head CT 09/01/23 13:44 IMPRESSION: No acute intracranial pathology. Air-fluid level right maxillary sinus. Mental Status Exam Mental Status Exam Narrative: Appearance: appears older than stated age, cachectic, in somewhat anxious Behavior: cooperative Psychomotor: bilat pin rolling movement, shuffling gait Speech: mostly clear, normal rate/rhythm/volume, spontaneous TP: mostly linear TC: wondering what is going on Mood: okay Affect: dysphoric SI: denies HI: denies VH/AH: does not appear at this time Delusions: much less perseverative on someone trying to hurt his . insight/judgment: impaired x 2 --> at baseline after hypoxic brain injury s/s to PR. memory/cog: alert, oriented only to self. severely impaired. Medications Medications Current Medications Aspirin (Aspirin 81 Mg Tab.Chew) 81 mg PO DAILY [facility] Last Admin: 09/04/23 09:00 Dose: 81 mg Atorvastatin Calcium (Atorvastatin Calcium 80 Mg Tablet) 80 mg PO BEDTIME [facility] Last Admin: 09/03/23 20:36 Dose: 80 mg Cefuroxime Axetil (Cefuroxime Axetil 500 Mg Tablet) 500 mg PO BID [facility] Last Admin: 09/04/23 09:00 Dose: 500 mg Clonidine (Clonidine 0.1 Mg Patch.Tdwk) 0.1 mg TRANSDERMA Q7D [facility]; Protocol Last Admin: 09/01/23 09:25 Dose: 0.1 mg Lamotrigine (Lamotrigine 25 Mg Tablet) 150 mg PO BID [facility] Last Admin: 09/04/23 08:20 Dose: 150 mg Losartan Potassium (Losartan Potassium 25 Mg Tablet) 25 mg PO DAILY [facility]; Protocol Last Admin: 09/04/23 09:00 Dose: 25 mg Melatonin (Melatonin 3 Mg Tablet) 9 mg PO BEDTIME [facility] Last Admin: 09/03/23 20:36 Dose: 9 mg Metoprolol Succinate (Metoprolol Succinate Er 25 Mg Tab.Er.24h) 25 mg PO DAILY [facility]; Protocol Last Admin: 09/04/23 09:00 Dose: 25 mg Quetiapine Fumarate (Quetiapine Fumarate 50 Mg Tablet) 50 mg PO DAILY PRN PRN Reason: mood Quetiapine Fumarate (Quetiapine Fumarate 100 Mg Tablet) 100 mg PO BID [facility] Last Admin: 09/04/23 08:20 Dose: 100 mg Sertraline HCl (Sertraline Hcl 50 Mg Tablet) 50 mg PO DAILY [facility] Last Admin: 09/04/23 08:20 Dose: 50 mg Trazodone HCl (Trazodone Hcl 50 Mg Tablet) 50 mg PO BEDTIME [facility] Last Admin: 09/03/23 20:36 Dose: 50 mg Allergies Allergies Allergy/AdvReac Type Severity Reaction Status Date / Time No Known Allergies Allergy Verified 08/21/23 15:35 Assessment & Plan Assessment & Plan (1) Major neurocognitive disorder as late effect of traumatic brain injury with behavioral disturbance: Status: Acute Code(s): S06.9X9S - Unspecified intracranial injury with loss of consciousness of unspecified duration, sequela; F02.818 - Dementia in other diseases classified elsewhere, unspecified severity, with other behavioral disturbance Plan Mr. Nam is a 68 year-old male with hx of anoxic brain following PR in 2019. Since then he has had multiple cognitive and memory decline. He is oriented to self. He was brought to [facility] due to increase paranoid thinking his family was in danger and grabbed knife to protect them. Labs mostly unremarkable. Head CT with microvascular changes and atrophy. He sees neurology, Dr. Hernandez, who had scheduled eeg to r/o epileptic psychosis. PLAN 1. No overt aggression or combative reactions requiring inpatient psych unit. Discussed with ongoing outpatient providers to adjust medications to treatment behavioral components of brain injury. pending results of eeg to r/o epileptic psychosis. 2. Pt to return home per with services. Total time managing care of this patient today ____ minutes.
--- NOTE | 2023-09-04 11:43 | PC.NURSE ---
pt continuously pacing back and forth attempting to enter pt's room in [facility]. nato is not interfering w/ pt in 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 pt is fixated on finding his varsity baseball coach as he states that he needs to play in the game. pt continues to search for ice skates behind bed. pt in [facility] moved to [facility] at this time. nato is currently sitting in chair/looking outside of window in 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 pt remains easily redirectable but is quite forgetful.
--- NOTE | 2023-09-04 12:03 | PC.NURSE ---
pt becoming extremely active/not as easy to redirect at this time. pt shuffling around the pod with extremely unsteady gait/unable to stay balanced. pt fell into another pt where she then caught him. dr. mcdaniels called/notified.
[2023-09-04] MEDS: OLANZapine ODT 10 MG TAB.RAPDIS TRANSLINGU (12:09)
--- NOTE | 2023-09-04 12:13 | PC.NURSE ---
pt medicated per provider order. effectiveness pending at this time.
--- NOTE | 2023-09-04 12:15 | PC.NURSE ---
lyndsey obtained/sent to lab.
--- NOTE | 2023-09-04 13:03 | PC.NURSE ---
pt remains extremely active/pacing hallways constantly nonstop. pt displays w/ extremely unsteady gait. 1:1 assist needed. pt provided w/ walker but unable to maintain steady gait w/ walker as he falls to the side. nursing informatics analyst walking bedside w/ pt for support.
--- NOTE | 2023-09-04 15:32 | PC.NURSE ---
this RN assumed care of pt, pt seemingly confused at this time. pt pacing back and forth attempting to open POD doors stating i want to go outside, pt easily redirectable at this time. pt sitting in chair between rooms 4 and 5. no new orders, plan on going.
--- NOTE | 2023-09-04 15:50 | PC.NURSE ---
pt attempting to enter Pt room 6, pt helped back to room in room 2 and assisted to sit in bed.
--- NOTE | 2023-09-04 15:55 | MHC.CM.ED ---
Received case management consult from Dr Faust. Patient came to the ER on 08/31 due to behaviors. Patient has a history of anoxic brain injury. Patient was cleared by Care Team. Spoke with patient's , Phyllis, via telephone at [phone]. Patient is disabled and unable to work since his injury. Patient has a history of impaired ambulation, balance issues and memory issues. These have been long standing and related to patient's brain injury. Phyllis is patient's primary caregiver. She is intereted in VNA at home and any additional help from [facility]. Referrals made for both in [facility]. Phyllis will transport patient home tomorrow 09/04. Leann MONREAL aware. Continue to monitor for d/c needs.
--- NOTE | 2023-09-04 19:19 | PC.NURSE ---
Assumed care of patient at 1900, patient is ambulatory with slightly unsteady gait around BH pod, requiring frequent redirection back to his room. Patient is alert to self only. Otherwise, patient appears to be in no apparent distress, respirations even and unlabored. Continue plan of care for PT/CM involvement
[2023-09-04] MEDS: Melatonin 3 MG TABLET 9 MG PO (20:07)
[2023-09-04] MEDS: Atorvastatin Calcium 80 MG TABLET PO (20:07)
[2023-09-04] MEDS: traZODone HCL 50 MG TABLET PO (20:07)
[2023-09-04 20:12] VITALS: BP 117/96; PULSE 97; RESP 20; TEMP 37.2; O2SAT 96
[2023-09-05 06:37] VITALS: BP 129/75; PULSE 73; RESP 16; TEMP 37.2; O2SAT 97
[2023-09-05 08:30] VITALS: BP 147/88; PULSE 95; RESP 15; TEMP 36.8; O2SAT 98
[2023-09-05 09:10] LABS: COVID-19 Test Negative (Negative); IDNOW Serial# 152EDE1D
[2023-09-05] MEDS: cefuroxime axetiL 500 MG TABLET PO (09:16)
[2023-09-05] MEDS: lamoTRIgine 25 MG TABLET 150 MG PO (09:16)
[2023-09-05] MEDS: Aspirin 81 MG TAB.CHEW PO (09:16)
[2023-09-05] MEDS: Losartan Potassium 25 MG TABLET PO (09:16)
[2023-09-05] MEDS: QUEtiapine Fumarate 100 MG TABLET PO (09:16)
[2023-09-05] MEDS: Sertraline HCL 50 MG TABLET PO (09:16)
[2023-09-05] MEDS: Metoprolol Succinate ER 25 MG TAB.ER.24H PO (09:16)
--- NOTE | 2023-09-05 10:22 | PHA.MEDREC ---
Pharmacy Consult ? Medication Reconciliation Pharmacy has completed the medication reconciliation. Reviewed med rec done by nursing
--- NOTE | 2023-09-05 12:13 | PC.NURSE ---
Calm and cooperative, sitting in common area watching t.v and coloring.
== END 2023-09-05 17:52 | disposition home or self-care (01) ==
PROVIDERS: Student in an Organized Health Care Education/Training Program; Emergency Provider Emergency Medicine Emergency Medical Services; PCP Nurse Practitioner Family
DX: F22 Delusional disorders (principal); R45.850 Homicidal ideations; N39.0 Urinary tract infection, site not specified; E87.6 Hypokalemia; U07.1 COVID-19; Z86.74 Personal history of sudden cardiac arrest
CPT/HCPCS: 0241U; 36415; 70450; 80053; 80307; 81001; 82140; 85025; 87086; 87635; 95816; 99285; S9485

== ENCOUNTER → 2023-09-01 01:21 | Outpatient (BNV) | payer MEDICARE, SELFPAY | PROVIDERS: Emergency Provider Emergency Medicine Emergency Medical Services; PCP Nurse Practitioner Family; Visit Provider Social Worker | DX: S06.9X9S Unspecified intracranial injury with loss of consciousness of unspecified duration, sequela (principal); F02.818 Dementia in other diseases classified elsewhere, unspecified severity, with other behavioral disturbance | CPT/HCPCS: 99285 ==

== ENCOUNTER 2023-09-28 15:30 | Outpatient (AMB) | payer MEDICARE, SELFPAY ==
[2023-09-28 15:35] VITALS: BP 96/68; PULSE 66; O2SAT 98; BMI 21.9
--- NOTE | 2023-09-28 15:35 | A.OFFPC_ITS ---
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 Est care per Intake Note: pt is here for new patient appt, requesting physical [employer] Dispatcher Required: No Accompanied by: Spouse Allergies lisinopril Allergy (Mild, Verified 09/28/23 16:38) Unknown Tobacco use date assessed: 09/28/23 Fall risk assessment: 2 + Falls in past year Last assessed Fall Risk: 09/28/23 Dental Screening Dental Screen Date: 09/28/23 Did you have a dental visit in the last 12 months?: No Did you have a dental problem in the last 6 months where you did not have access to dental care?: No Was dental information given to patient?: Patient declined 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 Will order labs. Due for PSA, will order. Denies dribbling with urination, weak stream, and frequent nocturia. Will order cologuard. Pt had a heart attack in 2019 which caused an anoxic brain injury. He is cared for by his who is with him today. Pt's reports that pt has issues with balance/walking and falls frequently. Pt follows up with neurology, hematology, and cardiology. [facility] Medical History (Updated 09/28/23 @ 17:16 by ANTONINA Coley-BOB) Cardiac arrest Surgical History No pertinent past surgical history Social History Alcohol intake: never Patient Tobacco Use Status: Former Tobacco user Substance Use Type: Marijuana Cognitive needs: No Hearing needs: No Vision needs: No Questionnaire PHQ-9 Over the last 2 weeks, how often have you been bothered by any of the following problems? 1. Little interest or pleasure in doing things: nearly every day 2. Feeling down, depressed, or hopeless: several days 3. Trouble falling or staying asleep, or sleeping too much: not at all 4. Feeling tired or having little energy: more than half the days 5. Poor appetite or overeating: more than half the days 6. Feeling bad about yourself - or that you are a failure or have let yourself or your family down: not at all 7. Trouble concentrating on things, such as reading the newspaper or watching television: not at all 8. Moving or speaking so slowly that other people could have noticed. Or the opposite - being so fidgety or restless that you have been moving around a lot more than usual: several days 9. Thoughts that you would be better off or of hurting yourself in some way: several days Total score: 10 Depression Screening Interpretation: Positive (denies any SI or HI) Depression Screening Follow-up: Existing condition Depression Screening Done: Yes 87697 - PHQ-9 Billing: Yes Source: Developed by Drs. Musa Corado, Brandi Vo, Vinod Leblanc and colleagues, with an educational fani from [employer]. Thrive Questionnaire Date Thrive assessed: 09/28/23 I am a: Patient What is your living situation today?: I have a steady place to live Within the past 12 months, did the food you bought not last and you didn't have the money to get more?: Never true Within the past 12 months, did you worry whether your food would run out before you got money to buy more?: Never true Do you have trouble paying for medicines?: No Do you have trouble getting transportation to medical appointments?: No Do you have trouble paying your heating and electricity bill?: No Do you have trouble taking care of your child, family member or friend?: No Do you have trouble with day-to-day activities such as bathing, preparing meals, shopping, managing finances, etc.?: No Are you currently unemployed and looking for a job?: No Are you interested in more education?: No Please select the resources that you would like help with: None Currently or been in a relationship where the following occur: no concerns reported THRIVE Score: 0 AUDIT C Alcohol Use Questionnaire (AUDIT-C) 1. How often do you have a drink containing alcohol?: Never 3. How often do you have six or more drinks on one occasion?: Never Total Score: 0 CRISTIAN-7 AMB Questionnaire CRISTIAN-7 Date CRISTIAN - 7 assessed: 09/28/23 Feeling nervous, anxious, or on edge: 2 = More than half the days Not being able to stop or control worryin = Several days Worrying too much about different things: 1 = Several days Trouble relaxin = Several days Being so restless that it is hard to sit still: 0 = Not at all Becoming easily annoyed or irritable: 1 = Several days Feeling afraid as if something awful might happen: 1 = Several days Total CRISTIAN-7 score (0-4 normal; 5-9 mild; 10-14 moderate; 15-21 severe): 7 Source: Developed by Drs. Musa Corado, Brandi Vo, Vinod Leblanc and colleagues, with an educational fani from [employer]. CRISTIAN-7 Assessment Billing CRISTIAN-7 Assessment Tool: CRISTIAN-7 Assessment 22792 Review of Systems Const Denies chills and Denies fever(s) Eyes Denies blurry vision ENT Denies vertigo, Denies dizziness and Denies sore throat Card Denies chest pain at rest, Denies chest pain with activity, Denies diaphoresis, Denies dyspnea and Denies dyspnea on exertion Resp Denies cough, Denies dyspnea, Denies dyspnea on exertion and Denies wheezing GI Denies abdominal pain, Denies melena, Denies hematochezia, Denies constipation, Denies diarrhea and Denies loose stools Denies hematuria Musc Denies numbness and Denies tingling Skin/Breast Denies lesions Neuro Denies vertigo, Denies dizziness, Denies numbness and Denies tingling Psych Denies anxiety, Denies depression, Denies homicidal ideation, Denies suicidal ideation and Denies other (substance abuse) Aller/Immun Denies wheezing Physical exam (Primary Care) Vital Signs: Last Vital Signs Pulse 66 09/28/23 15:35 Pulse Ox 98 09/28/23 15:35 Oxygen Delivery Method Room Air 09/28/23 15:35 BMI result Body Mass Index 21.9 Tobacco/Smoking Status: Tobacco use Status Tobacco use date assessed 09/28/23 09/28/23 15:45 Patient Tobacco Use Status Former Tobacco user 09/28/23 15:45 Depression Screening Interpretation: Positive (denies any SI or HI) Depression Screening Follow-up: Existing condition Currently or been in a relationship where the following occur: no concerns reported Const General: cooperative Orientation/consciousness: patient oriented x3 Resp Effort & Inspection: normal respiratory effort Auscultation: clear to auscultation bilaterally and diminished lung sounds Cardio Rate: regular rate Rhythm: regular rhythm Heart sounds: S1 normal heart sound present and S2 normal heart sound present Neuro Other: rigid extremities, + patellar reflexes bilat, rigid gait, upper extrem tremors. General: patient oriented x3 Psych Appearance: grossly normal Speech and movement: Clear speech present Affect: normal affect Attitude: cooperative Assessment and Plan Assessment & Plan (1) Screening for prostate cancer: Code(s): Z12.5 - Encounter for screening for malignant neoplasm of prostate Plan: PSA ordered (2) Major neurocognitive disorder as late effect of traumatic brain injury with behavioral disturbance: Code(s): S06.9X9S - Unspecified intracranial injury with loss of consciousness of unspecified duration, sequela; F02.818 - Dementia in other diseases classified elsewhere, unspecified severity, with other behavioral disturbance Plan: follows up with neurology (3) Cardiac arrest: Code(s): I46.9 - Cardiac arrest, cause unspecified (4) Seizures: Code(s): R56.9 - Unspecified convulsions Plan: follows up with neurology, infrequent petite mal seizures reported by Plan The patient agreed to the use of a medical attendant for this encounter. Scribed for ANTONINA Gar-BOB by Saima Mcneal medical attendant, on 09/28/2023 at 15:55 EST. Orders: Orders Complete Blood Count Auto Diff Today Z00.00 - Encounter for general adult medical examination without abnormal findings Lipid Panel Today Z00.00 - Encounter for general adult medical examination without abnormal findings Comprehensive Mosier. Panel Fast Today Z00.00 - Encounter for general adult medical examination without abnormal findings TSH reflex Free T4 Today Z00.00 - Encounter for general adult medical examination without abnormal findings UA CC w/rflx Micro + Cult Today Z00.00 - Encounter for general adult medical examination without abnormal findings Prostate Specific Antigen Scr Today Z12.5 - Encounter for screening for malignant neoplasm of prostate Referrals Cologuard Test Z12.11 - Encounter for screening for malignant neoplasm of colon, Z12.12 - Encounter for screening for malignant neoplasm of rectum Coding Level of Care Code New Pt Level 3 (17402) Diagnoses Screening for prostate cancer Z12.5 Major neurocognitive disorder as late effect of traumatic brain injury with behavioral disturbance S06.9X9S; F02.818 Cardiac arrest I46.9 Seizures R56.9 Additional Codes CRISTIAN-7 Assessment Billing - CRISTIAN-7 Assessment Tool: CRISTIAN-7 Assessment 11333 ([id number])
== END 2023-09-28 17:02 | disposition home or self-care (01) ==
PROVIDERS: PCP Internal Medicine; Visit Provider Nurse Practitioner Family
DX: Z00.00 Encounter for general adult medical examination without abnormal findings (principal); S06.9X9S Unspecified intracranial injury with loss of consciousness of unspecified duration, sequela; F02.818 Dementia in other diseases classified elsewhere, unspecified severity, with other behavioral disturbance; I46.9 Cardiac arrest, cause unspecified; R56.9 Unspecified convulsions; Z12.5 Encounter for screening for malignant neoplasm of prostate
CPT/HCPCS: 99204; 99214; 99397

== ENCOUNTER 2023-10-06 14:28 | Outpatient (REF) | payer MEDICARE, SELFPAY ==
[2023-10-06 16:29] LABS: MANUAL DIFF FLAG NO
[2023-10-06 16:37] LABS: Basophils Percent Auto 0.3 % (0-2); Eosinophils Absolute Auto 0.3 X10*3/uL (0.0-0.4); Eosinophils Percent Auto 3.1 % (0-4); Hematocrit 34.9 % (42.0-52.0); Hemoglobin 11.3 g/dl (14.0-18.0); Imm Gran Abs Auto 0.04 X10*3/uL (0.00-0.03); Imm Gran Pct Auto 0.5 % (0.0-0.4); Lymphocytes Percent Auto 34.5 % (20-40); Mean Corpuscular HGB Conc 32.4 g/dl (31.0-36.0); Mean Corpuscular Hemoglobin 31.1 pg (27.0-33.0); Mean Corpuscular Volume 96.1 fL (80.0-98.0); Mean Platelet Volume 10.1 fL (9.4-12.4); Monocytes Absolute Auto 0.7 X10*3/uL (0.1-1.2); Neutrophils Absolute Auto 4.7 x10*3/uL (2.0-8.3); Neutrophils Percent Auto 53.6 % (45-73); Platelet Count 495 X10*3/uL (160-400); Red Blood Count 3.63 X10*6/uL (4.60-5.80); Red Cell Distribution Width 17.8 % (11.0-16.0); White Blood Count 8.8 X10*3/uL (4.8-10.8)
[2023-10-06 17:05] LABS: Alanine Aminotransferase 21 U/L (0-40); Albumin Level 4.2 g/dL (3.5-5.0); Alkaline Phosphatase 153 U/L (39-117); Anion Gap 9 (12-20); Aspartate Amino Transferase 22 U/L (5-37); Bilirubin Total 0.3 mg/dL (0.0-1.0); Blood Urea Nitrogen 14 mg/dL (9-16); Calcium 9.3 mg/dL (8.4-10.2); Carbon Dioxide 29 mmol/L (22-29); Chloride 107 mmol/L (96-108); Cholesterol 121 mg/dL (<200); Estimated Glomerular Filt Rate > 60; Glucose Fasting 102 mg/dL (60-99); HDL Cholesterol 39 mg/dL (>40); LDL Cholesterol Calculated 73 mg/dL (<100); Potassium 4.4 mmol/L (3.3-5.1); Sodium 141 mmol/L (135-145); Total Protein 7.5 g/dL (6.5-8.0); Triglycerides 48 mg/dL (<150)
[2023-10-06 17:11] LABS: Prostate Specific Antigen Scr 0.52 ng/mL (<0.05-4.0)
[2023-10-06 17:20] LABS: TSH reflex Free T4 1.35 uIU/mL (0.32-4.0)
== END 2023-10-06 14:29 | disposition home or self-care (01) ==
LOC: HO.HMGCLDS 14:28
PROVIDERS: PCP Nurse Practitioner Family; Visit Provider Nurse Practitioner Family
DX: Z00.00 Encounter for general adult medical examination without abnormal findings (principal); Z13.220 Encounter for screening for lipoid disorders; Z13.29 Encounter for screening for other suspected endocrine disorder; Z12.5 Encounter for screening for malignant neoplasm of prostate
CPT/HCPCS: 36415; 80053; 80061; 84153; 84443; 85025

== ENCOUNTER 2024-03-28 15:10 | Outpatient (AMB) | payer MEDICARE, SELFPAY ==
[2024-03-28 15:11] VITALS: BP 120/74; PULSE 57; O2SAT 97; BMI 22.6
--- NOTE | 2024-03-28 15:11 | A.OFFPC_ITS ---
Vital Signs 03/28/24 15:11 Height 6 ft 1 in Weight 171 lb BMI 22.6 BP 120/74 Blood Pressure Location Lt brachial Position Sitting Pulse 57 Pulse Source Pulse Oximeter Pulse Oximetry (%) 97 Oxygen Delivery Method Room Air Intake Visit Reasons: 6 month follow up Allergies lisinopril Allergy (Mild, Verified 03/28/24 15:11) Unknown Medication List - Last Reconciled 03/28/24 by LUIZ Coley aspirin 1 tab PO DAILY atorvastatin 80 mg PO BEDTIME lamotrigine 150 mg PO BID losartan 25 mg PO DAILY [melatonin 10 mg PO BEDTIME] metoprolol succinate ER 25 mg PO DAILY quetiapine 50 mg PO DAILY PRN quetiapine 100 mg PO BID sertraline 50 mg PO DAILY trazodone 50 mg PO BEDTIME Tobacco use date assessed: 03/28/24 Fall risk assessment: 2 + Falls in past year Last assessed Fall Risk: 03/28/24 Dental Screening Dental Screen Date: 09/28/23 HPI 6 month follow up HPI Details Pt is cared for by his who is in the room today (his primary caregiver, [address] [place] [address]). Pt has a hx of [place] which caused an anoxic brain injury. Pt's reports that pt falls frequently (though baseline). She denies him hitting his head. He is seeing neurology (brain injury/spastic gaint/falls) and cardiology (MO). Pt has a hx of elevated alk phos. Will order alk phos breakdown. Denies fever, chills, and dizziness. Pt is unable to perform a colonoscopy or cologuard, with limited directional command. Will order FIT testing. encouraged bring him in for labs in the near future. COUNT INCLUDES [facility] Medical History (Updated 03/28/24 @ 15:31 by LUIZ Coley) Cardiac arrest Surgical History No pertinent past surgical history Social History Alcohol intake: never Patient Tobacco Use Status: Former Tobacco user e-Cigarette/Vaping Use: Never Used Substance Use Type: Marijuana Cognitive needs: No Hearing needs: No Vision needs: No Questionnaire PHQ-9 Over the last 2 weeks, how often have you been bothered by any of the following problems? 1. Little interest or pleasure in doing things: several days 2. Feeling down, depressed, or hopeless: several days 3. Trouble falling or staying asleep, or sleeping too much: not at all 4. Feeling tired or having little energy: several days 5. Poor appetite or overeating: several days 6. Feeling bad about yourself - or that you are a failure or have let yourself or your family down: not at all 7. Trouble concentrating on things, such as reading the newspaper or watching television: not at all 8. Moving or speaking so slowly that other people could have noticed. Or the opposite - being so fidgety or restless that you have been moving around a lot more than usual: several days 9. Thoughts that you would be better off or of hurting yourself in some way: not at all Total score: 5 Depression Screening Interpretation: Negative Depression Screening Done: Yes Source: Developed by Drs. Musa Corado, Brandi Vo, Vinod Leblanc and colleagues, with an educational fani from [employer]. Thrive Questionnaire Date Thrive assessed: 09/28/23 I am a: Parent/Caregiver What is your living situation today?: I have a steady place to live Within the past 12 months, did the food you bought not last and you didn't have the money to get more?: Never true Within the past 12 months, did you worry whether your food would run out before you got money to buy more?: Never true Do you have trouble paying for medicines?: No Do you have trouble getting transportation to medical appointments?: No Do you have trouble paying your heating and electricity bill?: No Do you have trouble taking care of your child, family member or friend?: Yes Do you have trouble with day-to-day activities such as bathing, preparing meals, shopping, managing finances, etc.?: Yes Are you interested in more education?: No Please select the resources that you would like help with: None Currently or been in a relationship where the following occur: No concerns reported THRIVE Score: 0 AUDIT C Alcohol Use Questionnaire (AUDIT-C) 1. How often do you have a drink containing alcohol?: Never Total Score: 0 CRISTIAN-7 AMB Questionnaire CRISTIAN-7 Date CRISTIAN - 7 assessed: 09/28/23 Feeling nervous, anxious, or on edge: 0 = Not at all Not being able to stop or control worryin = Several days Worrying too much about different things: 2 = More than half the days Trouble relaxin = Several days Being so restless that it is hard to sit still: 1 = Several days Becoming easily annoyed or irritable: 0 = Not at all Feeling afraid as if something awful might happen: 1 = Several days Total CRISTIAN-7 score (0-4 normal; 5-9 mild; 10-14 moderate; 15-21 severe): 6 Source: Developed by Drs. Musa Corado, Brandi Vo, Vinod Leblanc and colleagues, with an educational fani from [employer]. CRISTIAN-7 Assessment Billing CRISTIAN-7 Assessment Tool: CRISTIAN-7 Assessment 11358 Review of Systems Const Reports as per HPI Physical exam (Primary Care) Vital Signs: Last Vital Signs Pulse 57 03/28/24 15:11 BP 120/74 03/28/24 15:11 Pulse Ox 97 03/28/24 15:11 Oxygen Delivery Method Room Air 03/28/24 15:11 BMI result Body Mass Index 22.6 Tobacco/Smoking Status: Tobacco use Status Tobacco use date assessed 03/28/24 03/28/24 15:12 Patient Tobacco Use Status Former Tobacco user 03/28/24 15:12 e-Cigarette/Vaping Use Never Used 03/28/24 15:12 PHQ-9: PHQ-9 Score PHQ-9: Total score 5 03/28/24 15:35 Depression Screening Interpretation: Negative Thrive Assessment: Date of Thrive Assessment Date Thrive assessed 09/28/23 03/28/24 15:12 Currently or been in a relationship where the following occur: No concerns reported Const Other: steady gaze, mostly nonverbal while in the room, though understands most commands General: cooperative Resp Effort & Inspection: normal respiratory effort Auscultation: clear to auscultation bilaterally (slightly dim) Cardio Rate: regular rate Rhythm: regular rhythm Heart sounds: S1 normal heart sound present and S2 normal heart sound present GI Palpation (GI): Soft to palpation and nontender Neuro Gait exam (Neuro): Assisted gait required Extrem Right lower extremity: no edema Left lower extremity: no edema Psych Appearance: grossly normal and well kempt Affect: Blunted affect present Attitude: cooperative Assessment and Plan Assessment & Plan (1) Seizures: Code(s): R56.9 - Unspecified convulsions Plan: Seeing neuro, labs ordered (2) Cardiac arrest: Code(s): I46.9 - Cardiac arrest, cause unspecified Plan: Labs ordered, will try to track down [facility]'s note (sees [facility] Cardiology Team) (3) Elevated alkaline phosphatase level: Code(s): R74.8 - Abnormal levels of other serum enzymes Plan: Labs ordered Plan The patient agreed to the use of a medical insurance claims specialist for this encounter. Scribed for Leon Godinez [employer]PER- by Saima Mcneal medical insurance claims specialist, on 03/28/2024 at 15:25 EST. Orders: Orders Comprehensive [place]. Panel Fast Today I46.9 - Cardiac arrest, cause unspecified, R56.9 - Unspecified convulsions, R74.8 - Abnormal levels of other serum enzymes TSH reflex Free T4 Today I46.9 - Cardiac arrest, cause unspecified, R56.9 - Unspecified convulsions, R74.8 - Abnormal levels of other serum enzymes UA CC w/rflx Micro + Cult Today I46.9 - Cardiac arrest, cause unspecified, R56.9 - Unspecified convulsions, R74.8 - Abnormal levels of other serum enzymes Complete Blood Count Auto Diff Today I46.9 - Cardiac arrest, cause unspecified, R56.9 - Unspecified convulsions, R74.8 - Abnormal levels of other serum enzymes Lipid Panel Today I46.9 - Cardiac arrest, cause unspecified, R56.9 - Unspecified convulsions, R74.8 - Abnormal levels of other serum enzymes Alkaline Phosphatase Isoenzyme Today I46.9 - Cardiac arrest, cause unspecified, R56.9 - Unspecified convulsions, R74.8 - Abnormal levels of other serum enzymes Coding Level of Care Code Est Pt Level 3 (22925) Diagnoses Seizures R56.9 Cardiac arrest I46.9 Elevated alkaline phosphatase level R74.8 Additional Codes CRISTIAN-7 Assessment Billing - CRISTIAN-7 Assessment Tool: CRISTIAN-7 Assessment 28326 ([id number])
== END 2024-03-28 16:05 | disposition home or self-care (01) ==
PROVIDERS: PCP Nurse Practitioner Family; Visit Provider Nurse Practitioner Family
DX: R56.9 Unspecified convulsions (principal); I46.9 Cardiac arrest, cause unspecified; R74.8 Abnormal levels of other serum enzymes

== ENCOUNTER → 2024-03-28 15:10 | Outpatient (BNVA) | payer MEDICARE, SELFPAY | PROVIDERS: PCP Nurse Practitioner Family; Visit Provider Nurse Practitioner Family | DX: R56.9 Unspecified convulsions (principal); I46.9 Cardiac arrest, cause unspecified; R74.8 Abnormal levels of other serum enzymes | CPT/HCPCS: 96127; 99212 ==

== ENCOUNTER 2024-06-24 09:53 | Outpatient (AMB) | payer MEDICARE, SELFPAY ==
[2024-06-24 09:59] VITALS: BP 122/70; PULSE 66; O2SAT 97; BMI 21.5
--- NOTE | 2024-06-24 09:59 | A.OFFPC_ITS ---
Vital Signs 06/24/24 09:59 Height 6 ft 1 in Weight 163 lb BMI 21.5 BP 122/70 Blood Pressure Location Rt brachial Position Sitting Pulse 66 Pulse Source Pulse Oximeter Pulse Oximetry (%) 97 Intake Visit Reasons: f/up diarrhea for 2 weeks/referral? Intake Note: pt is here due to having uncontrollable diarrhea ongoing for 2 weeks. Accompanied by: Self / Same As Patient Allergies lisinopril Allergy (Mild, Verified 06/24/24 09:59) Unknown Medication List - Last Reconciled 06/24/24 by MESSI ColeyP- aspirin 1 tab PO DAILY atorvastatin 80 mg PO BEDTIME lamotrigine 150 mg PO BID losartan 25 mg PO DAILY 90 days [melatonin 10 mg PO BEDTIME] metoprolol succinate ER 25 mg PO DAILY quetiapine 50 mg PO DAILY PRN quetiapine 100 mg PO BID sertraline 50 mg PO DAILY trazodone 50 mg PO BEDTIME Tobacco use date assessed: 03/28/24 Fall risk assessment: No Falls in past year Last assessed Fall Risk: 06/24/24 Dental Screening Dental Screen Date: 09/28/23 HPI f/up diarrhea for 2 weeks/referral? HPI Details Chief Complaint The patient, represented by his , presents with ongoing diarrhea experienced for the past three weeks. History of Present Illness The patient is a 68-year-old male presenting with complaints of diarrhea. The symptoms began approximately three weeks ago and initially were explosive in nature. As time progressed, the diarrhea became more intermittent, aligning with the patient's typical bowel pattern, which is predominantly constipation. His trauma-related brain injury affects his ability to consistently recall or articulate the occurrences and characteristics of his bowel movements; therefore, his , who serves as his healthcare proxy, provides detailed observations. She notes a trend towards recovery with a reduction in diarrhea frequency and is encouraged as he returns to his usual bowel habits. There are no accompanying symptoms of fever, chills, or abdominal pain reported or blood in stool. Social History - The patient resides with his , who acts as his healthcare proxy and primary historian for communication purposes due to his limited verbal skills associated with his brain injury. Health Maintenance Review of Systems - Gastrointestinal: Reports intermittent diarrhea over three weeks, denies abdominal pain -see hpi Physical Exam General: Cooperative, healthy appearing, comfortable, no acute distress and well developed Orientation: Patient oriented x3 Limitations: No limitations Head: Normal to inspection Ears: Hearing grossly normal bilaterally Nose: Normal external nose present Face and sinus: Normal facial exam Eyes: Appearance normal, both eyes and all related structures Neck: Normal visual inspection and Yes full ROM Respiratory: Lungs were fairly clear to auscultation bilaterally, slightly diminished Cardiovascular: Regular rate and rhythm. Normal S1 and S2 GI: Normal to inspection. Soft to palpation and nontender, BS + Skin: No rashes or lesions noted Neuro: Patient oriented x3 Extremities: Normal to inspection Results Plan - Advise continuation of current dietary regimen. - Monitor bowel movements closely to ass ess progress and resolution of diarrhea. - The will report any changes or la ck of improvement in two weeks. Patient was informed and verbally consented to the use of an ambient scribe for clinic note documentation during this visit. Discussion Notes I discussed with the patient's , who holds the power of erisa attorney for healthcare decisions, that the diarrhea seems to be resolving gradually. I emphasized the importance of maintaining a regular diet and monitoring the symptoms closely. We agreed on a follow-up communication in two weeks to evaluate the patient's status and determine if any further intervention is necessary. Patient Instructions - Continue monitoring bowel habits and n ote any changes. - Maintain a regular diet. - Contact me in two weeks with an update on the bowel movements. - Report any worsening of symptoms or ne w developments promptly. [facility] Medical History Epilepsy Compulsive behavior disorder Cardiac arrest Surgical History No pertinent past surgical history Social History Alcohol intake: never Patient Tobacco Use Status: Former Tobacco user e-Cigarette/Vaping Use: Never Used Substance Use Type: Marijuana Cognitive needs: No Hearing needs: No Vision needs: No Questionnaire Thrive Questionnaire Date Thrive assessed: 03/28/24 I am a: Parent/Caregiver What is your living situation today?: I have a steady place to live Within the past 12 months, did the food you bought not last and you didn't have the money to get more?: Never true Within the past 12 months, did you worry whether your food would run out before you got money to buy more?: Never true Do you have trouble paying for medicines?: No Do you have trouble getting transportation to medical appointments?: No Do you have trouble paying your heating and electricity bill?: No Do you have trouble taking care of your child, family member or friend?: Yes Do you have trouble with day-to-day activities such as bathing, preparing meals, shopping, managing finances, etc.?: Yes Are you currently unemployed and looking for a job?: Yes Are you interested in more education?: No Please select the resources that you would like help with: None Currently or been in a relationship where the following occur: No concerns reported THRIVE Score: 0 CRISTIAN-7 AMB Questionnaire CRISTIAN-7 Date CRISTIAN - 7 assessed: 09/28/23 Source: Developed by Drs. Musa Corado, Brandi Vo, Vinod Leblanc and colleagues, with an educational fani from [employer]. Physical exam (Primary Care) Vital Signs: Last Vital Signs Pulse 66 06/24/24 09:59 BP 122/70 06/24/24 09:59 Pulse Ox 97 06/24/24 09:59 BMI result Body Mass Index 21.5 Tobacco/Smoking Status: Tobacco use Status Tobacco use date assessed 03/28/24 06/24/24 09:59 Patient Tobacco Use Status Former Tobacco user 06/24/24 09:59 e-Cigarette/Vaping Use Never Used 06/24/24 09:59 Thrive Assessment: Date of Thrive Assessment Date Thrive assessed 03/28/24 06/24/24 09:59 Currently or been in a relationship where the following occur: No concerns reported Coding Level of Care Code Est Pt Level 3 (90942) Diagnoses Diarrhea R19.7 Assessment & Plan Assessment & Plan (1) Diarrhea: Code(s): R19.7 - Diarrhea, unspecified Category: Medical Plan .
== END 2024-06-24 11:43 | disposition home or self-care (01) ==
PROVIDERS: PCP Nurse Practitioner Family; Visit Provider Nurse Practitioner Family
DX: R19.7 Diarrhea, unspecified (principal)

== ENCOUNTER → 2024-06-24 09:53 | Outpatient (BNVA) | payer MEDICARE, SELFPAY | PROVIDERS: PCP Nurse Practitioner Family; Visit Provider Nurse Practitioner Family | DX: R19.7 Diarrhea, unspecified (principal) | CPT/HCPCS: 99212 ==

== ENCOUNTER 2024-06-26 07:39 | Emergency (ER) | payer MEDICARE, SELFPAY ==
[2024-06-26] VITALS (7 sets, daily range): BP systolic 110–136; BP diastolic 62–92; PULSE 74–98; RESP 12–20; TEMP 36.4–36.6; O2SAT 94–100; BMI 24.8
--- NOTE | ~2024-06-26 | CT_ITS ---
EXAMINATION: CT HEAD WITHOUT CONTRAST CLINICAL INFORMATION: Altered mental status COMPARISON: CT head without contrast 09/01/2023 TECHNIQUE: Contiguous axial imaging was performed from the skull base to vertex without intravenous administration of contrast. This CT examination was performed using dose optimization techniques as appropriate, variously including the following: *Automated exposure control *Adjustment of mA and/or kV according to patient size (this includes techniques or standardized protocols for targeted exams where dose is matched to indication/reason for exam; i.e. extremities or head) *Use of iterative reconstruction technique DLP: 737 mGy-cm FINDINGS: There is no evidence of acute intracranial hemorrhage or edematous territorial infarction. Jorge-white matter differentiation appears preserved. Proportional prominence of the ventricles and cortical sulci with mild volume loss. Patchy hypodensities within the periventricular and deep white matter likely representing mild chronic microangiopathy No evidence for obstructive hydrocephalus. No abnormal mass effect or midline shift. No extra-axial fluid collections. No acute soft tissue or osseous abnormalities. Small mucus retention cyst in the right maxillary sinus. Trace left maxillary sinus mucosal thickening. The remaining visualized paranasal sinuses appear well-aerated. The mastoids are clear. CT/CT head/brain wo IV con IMPRESSION: No acute intracranial pathology. Mild volume loss and underlying chronic microangiopathy. Electronically signed by: Salas Poe MD 06/26/2024 03:49 PM NEELA
--- NOTE | 2024-06-26 08:10 | ED.GENADULT ---
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 Coming from home today with family reports that he has been increasingly more agitated and they are less able to redirect him. They are not present at the time of my evaluation. On review of medical records from his primary care provider's office his is his primary senior care assistant 24-7, was previously reported that he had a myocardial infarction which resulted in an anoxic brain injury, has frequent falls at baseline, follows with Neurology and Cardiology through [facility]. Patient is not able to provide me with much meaningful history, he continues to ask which store he came in through and where his is. He is not able to tell me why he is here today. He is not offering any physical complaints Related Data Home Medications ?Medication ?Instructions ?Recorded ?Confirmed lamotrigine 150 mg tablet 150 mg PO BID 08/21/23 06/24/24 quetiapine 100 mg tablet 100 mg PO BID 08/21/23 06/24/24 quetiapine 50 mg tablet 50 mg PO DAILY PRN mood 08/21/23 06/24/24 sertraline 50 mg tablet 50 mg PO DAILY 08/21/23 06/24/24 trazodone 50 mg tablet 50 mg PO BEDTIME 08/21/23 06/24/24 aspirin 81 mg chewable tablet 1 tab PO DAILY 09/01/23 06/24/24 atorvastatin 80 mg tablet 80 mg PO BEDTIME 09/01/23 06/24/24 melatonin 10 mg PO BEDTIME 09/01/23 06/24/24 metoprolol succinate 25 mg 25 mg PO DAILY 09/01/23 06/24/24 tablet,extended release 24 hr Previous Rx's ?Medication ?Instructions ?Recorded losartan 25 mg tablet 25 mg PO DAILY 90 days #90 tabs 05/14/24 Allergies Allergy/AdvReac Type Severity Reaction Status Date / Time lisinopril Allergy Mild Unknown Verified 06/26/24 07:51 Review of Systems Review of Systems: Yes all other systems are reviewed and are negative [facility] Past Medical History Attestation statement: The following information was validated with the patient. Source: old records reviewed Medical History Epilepsy Compulsive behavior disorder Cardiac arrest Surgical History No pertinent past surgical history Social History Social History Alcohol intake: never Patient Tobacco Use Status: Former Tobacco user Smoked in Last 30 Days: Yes e-Cigarette/Vaping Use: Never Used Use of substances other than those prescribed or required for medical reasons: No Substance Use Type: Marijuana Advance Directives: No Advance Directives Information Provided: Yes Do you have a plan to hurt others: No Plan Cognitive needs: No Hearing needs: No Vision needs: No Physical Exam ED Vital Signs: Vital Signs - 24 hr 06/26/24 07:47 06/26/24 08:09 06/26/24 10:11 Temperature 97.6 F 97.6 F Pulse Rate 86 86 76 Respiratory Rate 18 18 13 Blood Pressure 136/92 H 136/92 H 127/84 Pulse Oximetry 100 100 99 Oxygen Delivery Method Room Air Room Air Room Air BMI result Body Mass Index 24.8 Appearance: Alert.?Oriented to person. Appears mildly agitated/anxious Eyes: Pupils equal, round and reactive to light.? ENT: Pharynx normal.?? Neck: Normal inspection.? Neck supple.?? CVS: Heart sounds normal. Normal heart rate and rhythm.? Pulses normal.?? Respiratory: No respiratory distress.? Lung sounds clear to auscultation bilaterally?? Abdomen: Soft and non-tender. Normoactive bowel sounds. ? Skin: Skin warm and dry.? Normal skin color.? Extremities: No lower extremity edema.? No calf ttp? Neuro: Moves all extremities spontaneously. Sensation intact bilaterally. No focal neuro deficits. Course Reevaluation(s) Reevaluation #1: Nursing staff was able to have an at length discussion with patient's Elvira, she is not present in the emergency department today she however was contacted by phone. She reports that she woke up at approximately 05:30 this morning hearing noises upstairs she found the patient to be lying around on the floor rolling around naked yelling out that somebody was there to get him from the house and he needed to leave. She states that he became very angry and aggressive towards her. When she attempted to prevent him from leaving the house he charged at her and she was care for her safety therefore she contacted 911. She states that he had a urinary tract infection in July that required a inpatient psych admission due to his altered mentation at that time, she does report that she brought him to an urgent care about 2 weeks ago to be tested for COVID as well as a UTI both of which were negative. Thus far and evaluation CBC is without leukocytosis, has a mild normocytic anemia that does not meet transfusion criteria, no thrombocytopenia. No electrolyte derangement. No SUSAN. LFTs within normal range. Ammonia level within normal range. Ethyl alcohol level nondetectable. Viral serologies are negative. Plan to obtain urinalysis for further evaluation. Evaluation medical records in September of 2023 patient was rather in the emergency department under physician observation with psychiatry consultation. He was treated with cefuroxime for UTI some concern of seizure-like activity during his stay at that time, EEG was ordered rule out epileptic psychosis not found to have seizure activity. he was ultimately cleared and discharged back home with VNA. In the department today is not experiencing any extreme agitation or aggressive physical activity. Will have nursing staff attempt to ambulate him to the bathroom to obtain urinalysis and re-evaluate. Patient's does state that if he is otherwise calm and cooperative, she is amenable to picking him up today. 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 is not present at the time of my evaluation. Will obtain CBC to evaluate for leukocytosis/ anemia, CMP and lipase to evaluate for abnormal electrolytes /abnormal renal function/ abnormal hepatic/biliary function, serum ammonia level to rule out hepatic encephalopathy, DA and ethanol level, viral serologies, and Urinalysis. Differential Diagnosis Differential Diagnoses: The differential diagnosis associated with the presentation includes (See narrative above) Admission/Observation Consideration of admission/observation: Escalation of care including admission/observation considered (See narrative above and course narrative for further detail) Lab Data MDM Lab Attestation statement: I reviewed the patient's lab results. 06/26/24 08:24 06/26/24 08:24 Labs: Lab Results 06/26/24 Range/Units 08:24 WBC 6.9 (4.8-10.8) X10*3/uL RBC 3.81 L (4.60-5.80) X10*6/uL Hgb 12.1 L (14.0-18.0) g/dl Hct 35.2 L (42.0-52.0) % MCV 92.4 (80.0-98.0) fL MCH 31.8 (27.0-33.0) pg MCHC 34.4 (31.0-36.0) g/dl RDW 16.8 H (11.0-16.0) % Plt Count 385 (160-400) X10*3/uL MPV 9.2 L (9.4-12.4) fL Immature Gran % (Auto) 0.3 (0.0-0.4) % Neut % (Auto) 56.6 (45-73) % Lymph % (Auto) 33.5 (20-40) % [place] % (Auto) 7.9 (2-11) % Eos % (Auto) 1.3 (0-4) % Baso % (Auto) 0.4 (0-2) % Lymph # (Auto) 2.3 (1.2-4.9) X10*3/uL [place] # (Auto) 0.5 (0.1-1.2) X10*3/uL Eos # (Auto) 0.1 (0.0-0.4) X10*3/uL Baso # (Auto) 0.0 (0.0-0.2) X10*3/uL Abs Immat Gran (auto) 0.02 (0.00-0.03) X10*3/uL Absolute Neuts (auto) 3.9 (2.0-8.3) x10*3/uL Absolute Nucleated RBC 0.000 (0.0-0.012) X10*3/uL Nucleated RBC % (auto) 0.0 (0.0-0.2) /100WBC PT 11.2 (10.9-12.4) SEC INR 1.0 (0.9-1.1) Sodium 139 (135-145) mmol/L Potassium 3.7 (3.3-5.1) mmol/L Chloride 104 (96-108) mmol/L Carbon Dioxide 23 (22-29) mmol/L Anion Gap 16 (12-20) BUN 14 (9-16) mg/dL Creatinine 1.25 (0.5-1.4) mg/dL Estim Creat Clear Calc 56.2 Estimated GFR 58 Random Glucose 104 (60-115) mg/dL Calcium 9.3 (8.4-10.2) mg/dL Magnesium 1.8 (1.6-2.6) mg/dL Total Bilirubin 0.6 (0.0-1.0) mg/dL AST 34 (5-37) U/L ALT 13 (0-40) U/L Alkaline Phosphatase 111 (39-117) U/L Ammonia 42 (13-55) umol/L Total Protein 7.1 (6.5-8.0) g/dL Albumin 4.3 (3.5-5.0) g/dL Lipase 21 (8-78) U/L Ethyl Alcohol < 10 mg/dL Influenza Type A (PCR) NEGATIVE (Negative) Influenza Type B (PCR) NEGATIVE (Negative) RSV RNA Qual (PCR) NEGATIVE (Negative) SARS-CoV-2 RNA (RT-PCR) NEGATIVE (Negative) Independent Historian Clinical information obtained from an independent historian. History obtained from or confirmed by: EMS External Record Review External record reviewed: Outpatient record (PCP office as well as [facility]) [facility] 07/11/2023; prior ECG with sinus bradycardia, right bundle-branch block Chronic Conditions Patient?s care impacted by: Other (For narrative above, records reviewed through [facility]) Discharge Plan Discharge Clinical Impression: Agitation Prescriptions: No Action losartan 25 mg tablet 25 mg PO DAILY 90 Days Qty: 90 0RF atorvastatin 80 mg tablet 80 mg PO BEDTIME aspirin 81 mg tablet,chewable 1 tab PO DAILY metoprolol succinate 25 mg tablet extended release 24 hr 25 mg PO DAILY melatonin 10 mg PO BEDTIME quetiapine 50 mg tablet 50 mg PO DAILY PRN (Reason: mood) trazodone 50 mg tablet 50 mg PO BEDTIME lamotrigine 150 mg tablet 150 mg PO BID quetiapine 100 mg tablet 100 mg PO BID sertraline 50 mg tablet 50 mg PO DAILY Print Language: Divehi
--- NOTE | 2024-06-26 08:11 | PC.NURSE ---
Pt comes to ED via EMS from home. Per EMS, Pts family reports increase agitation with inability to redirect. Per EMS, Pt with Hx IL with anoxic brain injury causing permanent delays. Pt is oriented to person only. Denies pain. VSS, afebrile Skin is warm and dry Breaths and speech are unlabored Facial symmetry noted. Pt is agitated, making several demands to leave however does not make any attempts to flea at this time. Pt requests his and asks to know where the door he came in is repeatedly. Awaiting arrival of Pts for more information.
[2024-06-26 08:28] LABS: MANUAL DIFF FLAG NO
[2024-06-26 08:30] LABS: Basophils Percent Auto 0.4 % (0-2); Eosinophils Absolute Auto 0.1 X10*3/uL (0.0-0.4); Eosinophils Percent Auto 1.3 % (0-4); Hematocrit 35.2 % (42.0-52.0); Hemoglobin 12.1 g/dl (14.0-18.0); Imm Gran Abs Auto 0.02 X10*3/uL (0.00-0.03); Imm Gran Pct Auto 0.3 % (0.0-0.4); Lymphocytes Absolute Auto 2.3 X10*3/uL (1.2-4.9); Lymphocytes Percent Auto 33.5 % (20-40); Mean Corpuscular HGB Conc 34.4 g/dl (31.0-36.0); Mean Corpuscular Hemoglobin 31.8 pg (27.0-33.0); Mean Corpuscular Volume 92.4 fL (80.0-98.0); Mean Platelet Volume 9.2 fL (9.4-12.4); Monocytes Absolute Auto 0.5 X10*3/uL (0.1-1.2); Monocytes Percent Auto 7.9 % (2-11); Neutrophils Absolute Auto 3.9 x10*3/uL (2.0-8.3); Neutrophils Percent Auto 56.6 % (45-73); Platelet Count 385 X10*3/uL (160-400); Red Blood Count 3.81 X10*6/uL (4.60-5.80); Red Cell Distribution Width 16.8 % (11.0-16.0); White Blood Count 6.9 X10*3/uL (4.8-10.8)
[2024-06-26 08:38] LABS: Ammonia 42 umol/L (13-55)
[2024-06-26 09:08] LABS: Influenza A PCR NEGATIVE (Negative); Influenza B PCR NEGATIVE (Negative); Resp Syncy Virus RNA Qual PCR NEGATIVE (Negative); SARS COV2 PCR INHOUSE NEGATIVE (Negative)
--- NOTE | 2024-06-26 09:14 | PC.NURSE ---
This RN spoke with Pts (Elvira) at length regarding Pts visit to ER today. Elvira reports the following information: Pt had IA in 2019 in which he suffered an anoxic brain injury. Since the injury Pt has been alerted/delayed causing him to fall frequently, needs regular redirection and have behavior outburst. She states she is able to manage him and they live alone together. This morning, she woke up at 0530 and heard noises coming from upstairs. When she arrived at the bedroom she found the Pt naked, rolling around on the floor claiming someone was there to get him and he needed to leave the house. She states she suspects this was a dream however she was unable to redirect him. She reports Pt became angry and aggressive towards here as she was trying to prevent him from leaving. Elvira reports Pt did charge at her during this incident and she was afraid for her safety. She stats since she lives alone with Pt, she called 911 as she felt afraid and was unable to control the situation. Elvira goes on to explain that Pt was recently tested for COVID and UTI at a walk in clinic, in which both were resulted as negative. Elvira states Pt had a UTI in July that required a psych admission here at [facility]. Furthermore, Elvira states Pt has a recent bout of explosive dirrhea about a month ago in which he was seen by their PCP who advised to let it run its course; Pt now has not had a BM in about 14 days. Elvira reports Pt has had no recent fever, n/v, or abd pain. She states he has a healthy appetite and is med compliant; Elvira did medicate Pt this morning with all his scheduled medications. This RN inquires about how Elvira feels about Pt returning home, and Elvira states that if Pt is evaluated and found to be calm and not agitated she would feel safe having Pt return home. Elvira is available by phone @ [phone] for any questions/concerns/updates. She states she will be heading to her daughters house shortly but will be available by phone. All above information shared with ADAM Batista
[2024-06-26 09:17] LABS: Alanine Aminotransferase 13 U/L (0-40); Albumin Level 4.3 g/dL (3.5-5.0); Alkaline Phosphatase 111 U/L (39-117); Anion Gap 16 (12-20); Aspartate Amino Transferase 34 U/L (5-37); Bilirubin Total 0.6 mg/dL (0.0-1.0); Blood Urea Nitrogen 14 mg/dL (9-16); Calcium 9.3 mg/dL (8.4-10.2); Carbon Dioxide 23 mmol/L (22-29); Chloride 104 mmol/L (96-108); Creatinine Clr Calc Pharmacy 56.2; Estimated Glomerular Filt Rate 58; Ethanol < 10 mg/dL; Glucose Random 104 mg/dL (60-115); Lipase 21 U/L (8-78); Magnesium 1.8 mg/dL (1.6-2.6); Potassium 3.7 mmol/L (3.3-5.1); Sodium 139 mmol/L (135-145); Total Protein 7.1 g/dL (6.5-8.0)
[2024-06-26 09:22] LABS: Prothrombin Time 11.2 SEC (10.9-12.4)
[2024-06-26 14:25] LABS: Appearance Urine Cloudy; Color Urine Yellow; Glucose Urine UA Negative (Negative); Leukocyte Esterase Urine Small (1+) (Negative); Nitrite Urine Negative (Negative); Specific Gravity - Urine 1.025 (1.005-1.025); UMIC TRIGGER UACC YES; Urine Blood Negative (Negative); Urine Ketones 15 mg/dL (Negative); Urine Protein 30 (1+) mg/dL (Neg-Trace)
[2024-06-26 14:39] LABS: Amphetamine Screen Urine Not Detected (Not Detect); Barbiturates, Urine Not Detected (Not Detect); Benzodiazepines Screen Urine Not Detected (Not Detect); Buprenorphine Scr Not Detected (Not Detect); Cannabinoid Screen Urine POSITIVE (Not Detect); Cocaine Screen Urine Not Detected (Not Detect); Fentanyl, urine Not Detected (Not Detect); Methadone Screen, Urine Not Detected (Not Detect); Opiate Screen Urine Not Detected (Not Detect); Oxycodone Screen Urine Not Detected (Not Detect); Phencyclidine Screen Urine Not Detected (Not Detect)
[2024-06-26 14:40] LABS: Bacteria Urine None Seen (None Seen); Hyaline Casts Urine 0-2 /LPF (0-2); RBC Urine 0-2 /HPF (0-2); Squamous Epithelial Cell Urine 0-2 /HPF (0-2); UACC Culture Trigger YES
--- NOTE | 2024-06-26 16:01 | PC.NURSE ---
Addendum entered by Marge Moreland RN 06/26/24 17:26: 1726: Call received from Pts (Elvira) Elvira advised that Pt has been ready for d/c. Elvira reports she is sitting down at [employer] dinner--still eating dessert but is on her way to potato picker Pt. Elvira was advised to report to the ED. Addendum entered by Marge Moreland RN 06/26/24 16:30: 1630: Second call placed to (Elvira) to advised that Pt is ready for d/c. No answer and VM left with call back number. Original Note: Pts (Elvira) calls this RN at approx 1515 for an update. At this time, Elvira was advised that testing to this point was negative. A CT of the head was completed and results were pending, Elvira was advised it would be best that she head to the ED as Pt would likely be d/c'd. Elvira advised results would be received within the hour. Elvira is reluctant to come to the ED as results are not back yet. She states she is about to sit down to [employer] dinner and will have her phone on her so this RN can call her when the results are back. This RN advised her to keep her phone close as we anticipate his d/c in the very near future. Call placed to Elvira and approx 4pm to advise that Pt is ready for d/c---Elvira did not answer.
== END 2024-06-26 18:35 | disposition home or self-care (01) ==
PROVIDERS: Nurse Practitioner Family; Emergency Provider Emergency Medicine; PCP Nurse Practitioner Family
DX: R45.1 Restlessness and agitation (principal); Z79.899 Other long term (current) drug therapy
CPT/HCPCS: 0241U; 36415; 70450; 80053; 80307; 81001; 82140; 83690; 83735; 85025; 85610; 87086; 87088; 99284

== ENCOUNTER 2024-06-27 14:39 | Inpatient (IN) | payer MEDICARE, SELFPAY ==
[2024-06-27] VITALS (7 sets, daily range): BP systolic 107–123; BP diastolic 69–80; PULSE 68–80; RESP 16; TEMP 36.6–36.9; O2SAT 94–97; BMI 20.9
--- NOTE | ~2024-06-27 | MR_ITS ---
EXAMINATION: MR BRAIN WITHOUT CONTRAST CLINICAL INFORMATION: New changes in behavior, agitation, anoxic brain injury COMPARISON: CT head on 06/21/2024 TECHNIQUE: MRI of the brain was obtained using routine sequences without contrast. FINDINGS: Motion artifact is present. No acute intracranial hemorrhage or infarct. Scattered and confluent periventricular and deep white matter T2/FLAIR hyperintensities, nonspecific however commonly seen with small vessel ischemic disease. Diffuse prominence of the sulci with associated ex vacuo dilation of the ventricles compatible with global cerebral atrophy. No midline shift or hydrocephalus. No acute extra-axial fluid collections. The osseous structures are unremarkable. The pituitary gland, pineal gland and remaining midline structures are unremarkable. No orbital pathology. The paranasal sinuses and mastoid air cells are clear. MR/MR head/brain wo con IMPRESSION: Within the limitations of the study, 1. No acute intracranial abnormalities. 2. Global cerebral atrophy and chronic microangiopathy. Electronically signed by: Jann Pickett MD 06/27/2024 07:01 PM NEELA
--- NOTE | ~2024-06-27 | CT_ITS ---
EXAMINATION: CT ABDOMEN AND PELVIS WITH CONTRAST CLINICAL INFORMATION: Constipation of one week's duration. COMPARISON: None available. TECHNIQUE: Multidetector volumetric images were obtained from the superior aspect of the liver through the pubic symphysis following administration 85 mL of Omnipaque 350 intravenous contrast. Sagittal and coronal reformatted images were obtained on the technologist's workstation. Oral contrast: No This CT examination was performed using dose optimization techniques as appropriate, variously including the following: *Automated exposure control *Adjustment of mA and/or kV according to patient size (this includes techniques or standardized protocols for targeted exams where dose is matched to indication/reason for exam; i.e. extremities or head) *Use of iterative reconstruction technique DLP: 784 mGy-cm FINDINGS: LUNG BASES: There is bibasilar dependent hypoaeration. There is very mild left gynecomastia. LIVER, GALLBLADDER, AND BILIARY TREE: The liver is normal in size, shape, and attenuation. No focal hepatic lesion or biliary ductal dilatation is present. The gallbladder is unremarkable with no evidence of radiopaque gallstones, gallbladder wall thickening, or obvious pericholecystic inflammatory changes. PANCREAS: Unremarkable. SPLEEN: Unremarkable. ADRENAL GLANDS: Unremarkable. KIDNEYS AND URETERS: The kidneys are normal in size, shape, and attenuation. No hydronephrosis, hydroureter, or calculi seen. No perinephric stranding. BLADDER: There is a probable 1.1 cm prostate nodule projecting into the bladder base, versus less likely a bladder wall lesion (7:58). GASTROINTESTINAL TRACT: There is mild diverticulosis, without acute diverticulitis. No bowel obstruction, free intraperitoneal air or abscess is seen. There is no focal bowel wall thickening. The vermiform appendix appears normal. No diverticulosis or diverticulitis is seen. ABDOMINAL WALL: No significant hernia is appreciated. LYMPH NODES: Normal. VASCULAR: There is mild aortoiliac atherosclerotic calcification. No abdominal aortic aneurysm or dissection is seen. PELVIC VISCERA: Towards the superior margin of the prostate gland, a 1.1 cm nodule is questioned. Less likely, this could represent a bladder nodule. OSSEOUS STRUCTURES: At T9-10, and is marked disc space narrowing. At L3-4, there is vacuum disc phenomenon. There is multi-level lower thoracic and lumbar endplate arthropathy and Schmorl's node formation. No acute or aggressive osseous finding is noted. CT/CT abdomen pelvis w IV con IMPRESSION: 1. There is mild diverticulosis, without acute diverticulitis. No obstruction, free intraperitoneal air or abscess is seen. There is no focal bowel wall thickening. 2. A 1.1 cm probable prostate nodule is seen, projecting into the bladder base. Less likely, this could represent a bladder wall lesion. Recommend correlation with the patient's serum PSA level. As well, consider further evaluation with prostate/bladder ultrasound. 3. There is thoracolumbar degenerative disc disease. Fleischner guidelines were followed. Electronically signed by: Leon Castellanos MD 06/27/2024 08:32 PM [facility] [place]
--- NOTE | 2024-06-27 15:26 | ECG_ITS ---
Test Reason : WEAKNESS Blood Pressure : / mmHG Vent. Rate : 067 BPM Atrial Rate : 067 BPM P-R Int : 194 ms QRS Dur : 158 ms QT Int : 454 ms P-R-T Axes : 078 -51 038 degrees QTc Int : 479 ms Normal sinus rhythm Right bundle branch block Left anterior fascicular block Bifascicular block Inferior infarct (cited on or before 24-JUN-2021) Abnormal ECG When compared with ECG of 24-JUN-2021 15:29, Previous ECG has undetermined rhythm, needs review Left anterior fascicular block is now Present Referred By: Annia Faust Electronically Signed By:ALBERTINA DARLING MD
[2024-06-27 15:51] LABS: MANUAL DIFF FLAG NO
--- NOTE | 2024-06-27 16:03 | ED.GENADULT ---
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 Seen in this ED last night and discharged home, saw Dr. Hernandez today who wants patient admitted. States he was initially seen at urgent care for diarrhea. He was discharged home with a container to obtain a stool sample. Daughter states they have been unable to obtain this as patient has been going to the bathroom in the middle of the night. Within the past 5 days, patient has been having episodes where he is staring into the distance, having abnormal loud breathing noises, similar to prior petite mal seizures. Daughter states now patient has not had a bowel movement for the past week. She also reports that he has been unable to ambulate over the past week. Typically he is able to ambulate independently, dress himself, etc. Recently has been having to get to the bathroom on his hands and knees. Saw Dr. Hernandez today who wants admission for further evaluation of symptoms, MRI, EEG, etc. Patient denies pain, but daughter states the she feels his pain receptors have been affected by his TBI, and he has had significant injuries without any complaint of pain. MD complaint: weakness, change in mental status Onset (ago): week(s) Related Data Home Medications ?Medication ?Instructions ?Recorded ?Confirmed lamotrigine 150 mg tablet 150 mg PO BID 08/21/23 06/27/24 quetiapine 100 mg tablet 100 mg PO BID 08/21/23 06/27/24 quetiapine 50 mg tablet 50 mg PO BID 08/21/23 06/27/24 sertraline 50 mg tablet 50 mg PO DAILY 08/21/23 06/27/24 trazodone 50 mg tablet 50 mg PO BEDTIME 08/21/23 06/27/24 aspirin 81 mg chewable tablet 1 tab PO DAILY 09/01/23 06/27/24 atorvastatin 80 mg tablet 80 mg PO BEDTIME 09/01/23 06/27/24 melatonin 10 mg PO BEDTIME 09/01/23 06/27/24 metoprolol succinate 25 mg 25 mg PO DAILY 09/01/23 06/27/24 tablet,extended release 24 hr Previous Rx's ?Medication ?Instructions ?Recorded losartan 25 mg tablet 25 mg PO DAILY 90 days #90 tabs 05/14/24 Allergies Allergy/AdvReac Type Severity Reaction Status Date / Time lisinopril Allergy Mild Unknown Verified 06/27/24 15:31 Review of Systems Review of Systems: As per HPI Yes all other systems are reviewed and are negative [facility] Past Medical History Medical History Epilepsy Compulsive behavior disorder Cardiac arrest Surgical History No pertinent past surgical history Social History Social History Alcohol intake: never Patient Tobacco Use Status: Former Tobacco user Smoked in Last 30 Days: No e-Cigarette/Vaping Use: Never Used Use of substances other than those prescribed or required for medical reasons: No Substance Use Type: Marijuana Advance Directives: No Advance Directives Information Provided: No Cognitive needs: No Hearing needs: No Vision needs: No Physical Exam ED Vital Signs: Vital Signs - 24 hr 06/27/24 15:29 06/27/24 16:00 06/27/24 18:00 Temperature 98.3 F 97.8 F 98.4 F Pulse Rate 68 68 77 Respiratory Rate 16 16 16 Blood Pressure 107/72 121/80 116/76 Pulse Oximetry 95 94 97 Oxygen Delivery Method Room Air Room Air Room Air 06/27/24 18:02 Temperature Pulse Rate Respiratory Rate Blood Pressure Pulse Oximetry 96 Oxygen Delivery Method Room Air BMI result Body Mass Index 20.9 Vital signs have been reviewed and appear to be correct. Blood pressure normal. Heart rate normal. Respiratory rate normal. Temperature normal. Oxygen saturation normal. Const General: no acute distress, alert and awake Nutritional Appearance: average body habitus Orientation/consciousness: oriented to person Limitations: altered mental status HENMT Head: Yes normocephalic and Yes atraumatic Ears: external ears normal General nose exam: Normal external nose present Throat: Yes uvula midline Eyes Pupils: Equal, round and reactive pupils present Neck Neck: Yes normal visual inspection, Yes trachea midline and Yes supple Resp Effort & Inspection: normal respiratory effort Auscultation: clear to auscultation bilaterally Cardio Rate: regular rate Rhythm: regular rhythm Heart sounds: S1 normal heart sound present and S2 normal heart sound present Peripheral pulses: Peripheral pulses 2+ throughout GI Palpation (GI): Soft to palpation and nontender Auscultation: normoactive bowel sounds Skin General skin exam: elasticity normal and turgor normal Neuro General: oriented to person, tone normal, moves all extremities and no focal motor deficits Cranial nerves: Yes Equal, round and reactive pupils present Medications Administered Discontinued Medications Generic Name Dose Route Start Last Admin Trade Name Freq PRN Reason Stop Dose Admin Iohexol 100 ml 06/27/24 18:27 06/27/24 18:27 Iohexol 350 Mg/Ml 100 Ml Infus..Btl IV 06/27/24 18:28 85 ml ONCE ONE Administration Lorazepam 1 mg 06/27/24 17:47 06/27/24 17:56 Lorazepam 2 Mg/Ml Vial IVPUSH 06/27/24 17:48 1 mg ONCE ONE Administration Medical Decision Making Medical Decision Making [facility] Narrative: Patient is a 68-year-old male with history of seizure disorder, cardiac arrest, 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 On exam patient is awake, A+Ox1, VS WNL, afebrile, normal neurological exam without focal deficits, physical exam findings as above. Given reported symptoms and physical exam findings, initial differential includes but is not limited to UTI, viral illness, electrolyte abnormality, anemia, impaired renal or hepatic function, seizures. Labs notable for no leukocytosis, mild anemia which appears chronic, no significant electrolyte abnormalities. Urinalysis is without evidence of infection. Viral serology negative. Brain MRI notable for no acute intracranial abnormalities, global atrophy and chronic microangiopathy. My interpretation is in agreement with the radiologist's interpretation. CT A/P pending. Case discussed with Dr. Ag who accepts admission to medicine. Differential Diagnosis Differential Diagnoses: The differential diagnosis associated with the presentation includes As per [facility] Admission/Observation Consideration of admission/observation: Escalation of care including admission/observation considered Consult Healthcare Provider Management of the patient was discussed with: Hospitalist Lab Data [facility] Lab Attestation statement: I reviewed the patient's lab results. As per [facility] 06/27/24 15:42 06/27/24 15:42 Labs: Lab Results 06/27/24 06/27/24 Range/Units 15:42 18:45 WBC 7.5 (4.8-10.8) X10*3/uL RBC 3.76 L (4.60-5.80) X10*6/uL Hgb 11.9 L (14.0-18.0) g/dl Hct 34.8 L (42.0-52.0) % MCV 92.6 (80.0-98.0) fL MCH 31.6 (27.0-33.0) pg MCHC 34.2 (31.0-36.0) g/dl RDW 17.0 H (11.0-16.0) % Plt Count 380 (160-400) X10*3/uL MPV 9.7 (9.4-12.4) fL Immature Gran % (Auto) 0.3 (0.0-0.4) % Neut % (Auto) 56.5 (45-73) % Lymph % (Auto) 32.7 (20-40) % [place] % (Auto) 9.6 (2-11) % Eos % (Auto) 0.5 (0-4) % Baso % (Auto) 0.4 (0-2) % Lymph # (Auto) 2.4 (1.2-4.9) X10*3/uL [place] # (Auto) 0.7 (0.1-1.2) X10*3/uL Eos # (Auto) 0.0 (0.0-0.4) X10*3/uL Baso # (Auto) 0.0 (0.0-0.2) X10*3/uL Abs Immat Gran (auto) 0.02 (0.00-0.03) X10*3/uL Absolute Neuts (auto) 4.2 (2.0-8.3) x10*3/uL Absolute Nucleated RBC 0.000 (0.0-0.012) X10*3/uL Nucleated RBC % (auto) 0.0 (0.0-0.2) /100WBC ESR 12 (0-15) MM/HR Sodium 138 (135-145) mmol/L Potassium 3.7 (3.3-5.1) mmol/L Chloride 106 (96-108) mmol/L Carbon Dioxide 26 (22-29) mmol/L Anion Gap 10 L (12-20) BUN 15 (9-16) mg/dL Creatinine 0.92 (0.5-1.4) mg/dL Estim Creat Clear Calc 80.0 Estimated GFR > 60 Random Glucose 97 (60-115) mg/dL Calcium 8.9 (8.4-10.2) mg/dL Magnesium 1.9 (1.6-2.6) mg/dL Total Bilirubin 0.5 (0.0-1.0) mg/dL Direct Bilirubin 0.2 (0.0-0.5) mg/dL AST 37 (5-37) U/L ALT 13 (0-40) U/L Alkaline Phosphatase 117 (39-117) U/L C-Reactive Protein 0.62 H (< or = 0.50) mg/dL Total Protein 7.0 (6.5-8.0) g/dL Albumin 4.3 (3.5-5.0) g/dL Lipase 14 (8-78) U/L Urine Color Yellow Urine Appearance Clear Urine pH 6.0 (5.0-9.0) Ur Specific [place] >= 1.030 H (1.005-1.025) Urine Protein 30 (1+) H (Neg-Trace) mg/dL Urine Glucose (UA) Negative (Negative) mg/dL Urine Ketones 15 (Negative) mg/dL Urine Blood Negative (Negative) Urine Nitrite Negative (Negative) Ur Leukocyte Esterase Negative (Negative) Urine RBC 0-2 (0-2) /HPF Urine WBC 0-5 (0-5) /HPF Ur Squamous Epith Cells 0-2 (0-2) /HPF Urine Bacteria None Seen (None Seen) Hyaline Casts 0-2 (0-2) /LPF Urine Yeast Present Influenza Type A (PCR) NEGATIVE (Negative) Influenza Type B (PCR) NEGATIVE (Negative) RSV RNA Qual (PCR) NEGATIVE (Negative) SARS-CoV-2 RNA (RT-PCR) NEGATIVE (Negative) Radiology Impression Discussion of test interpretation with radiology: I have reviewed the radiologist's reading. Radiologist Impression: MR/MR head/brain wo con IMPRESSION: Within the limitations of the study, 1. No acute intracranial abnormalities. 2. Global cerebral atrophy and chronic microangiopathy. Independent Historian Clinical information obtained from an independent historian. History obtained from or confirmed by: Other (daughter) External Record Review External record reviewed: Inpatient record, Office record and Outpatient record Discharge Plan Discharge Prescriptions: No Action losartan 25 mg tablet 25 mg PO DAILY 90 Days Qty: 90 0RF atorvastatin 80 mg tablet 80 mg PO BEDTIME aspirin 81 mg tablet,chewable 1 tab PO DAILY metoprolol succinate 25 mg tablet extended release 24 hr 25 mg PO DAILY melatonin 10 mg PO BEDTIME quetiapine 50 mg tablet 50 mg PO BID trazodone 50 mg tablet 50 mg PO BEDTIME lamotrigine 150 mg tablet 150 mg PO BID quetiapine 100 mg tablet 100 mg PO BID sertraline 50 mg tablet 50 mg PO DAILY Print Language: Yi
--- NOTE | 2024-06-27 16:06 | PC.NURSE ---
MRI screening form complete and faxed to MRI.
[2024-06-27 16:11] LABS: Alanine Aminotransferase 13 U/L (0-40); Albumin Level 4.3 g/dL (3.5-5.0); Alkaline Phosphatase 117 U/L (39-117); Anion Gap 10 (12-20); Aspartate Amino Transferase 37 U/L (5-37); Bilirubin Direct 0.2 mg/dL (0.0-0.5); Bilirubin Total 0.5 mg/dL (0.0-1.0); Blood Urea Nitrogen 15 mg/dL (9-16); C Reactive Protein 0.62 mg/dL (< or = 0.50); Calcium 8.9 mg/dL (8.4-10.2); Carbon Dioxide 26 mmol/L (22-29); Chloride 106 mmol/L (96-108); Estimated Glomerular Filt Rate > 60; Glucose Random 97 mg/dL (60-115); Lipase 14 U/L (8-78); Magnesium 1.9 mg/dL (1.6-2.6); Potassium 3.7 mmol/L (3.3-5.1); Sodium 138 mmol/L (135-145)
[2024-06-27 16:29] LABS: Influenza A PCR NEGATIVE (Negative); Influenza B PCR NEGATIVE (Negative); Resp Syncy Virus RNA Qual PCR NEGATIVE (Negative); SARS COV2 PCR INHOUSE NEGATIVE (Negative)
[2024-06-27 16:37] LABS: Erythrocyte Sedimentation Rate 12 MM/HR (0-15)
[2024-06-27] MEDS: LORazepam 2 MG/ML VIAL 1 MG IVPUSH (17:56)
--- NOTE | 2024-06-27 18:17 | PC.NURSE ---
Pt.'s home meds. completed with pt.'s daughter who is at bedside.
[2024-06-27] MEDS: iohexoL 350 MG/ML 100 ML INFUS..BTL IV (18:27)
[2024-06-27 18:59] LABS: Basophils Percent Auto 0.4 % (0-2); Eosinophils Percent Auto 0.5 % (0-4); Hematocrit 34.8 % (42.0-52.0); Hemoglobin 11.9 g/dl (14.0-18.0); Imm Gran Abs Auto 0.02 X10*3/uL (0.00-0.03); Imm Gran Pct Auto 0.3 % (0.0-0.4); Lymphocytes Absolute Auto 2.4 X10*3/uL (1.2-4.9); Lymphocytes Percent Auto 32.7 % (20-40); Mean Corpuscular HGB Conc 34.2 g/dl (31.0-36.0); Mean Corpuscular Hemoglobin 31.6 pg (27.0-33.0); Mean Corpuscular Volume 92.6 fL (80.0-98.0); Mean Platelet Volume 9.7 fL (9.4-12.4); Monocytes Absolute Auto 0.7 X10*3/uL (0.1-1.2); Monocytes Percent Auto 9.6 % (2-11); Neutrophils Absolute Auto 4.2 x10*3/uL (2.0-8.3); Neutrophils Percent Auto 56.5 % (45-73); Platelet Count 380 X10*3/uL (160-400); Red Blood Count 3.76 X10*6/uL (4.60-5.80); White Blood Count 7.5 X10*3/uL (4.8-10.8)
[2024-06-27 19:01] LABS: Appearance Urine Clear; Color Urine Yellow; Glucose Urine UA Negative (Negative); Leukocyte Esterase Urine Negative (Negative); Nitrite Urine Negative (Negative); Specific Gravity - Urine >= 1.030 (1.005-1.025); UMIC TRIGGER UACC YES; Urine Blood Negative (Negative); Urine Ketones 15 mg/dL (Negative); Urine Protein 30 (1+) mg/dL (Neg-Trace)
[2024-06-27 19:19] LABS: Bacteria Urine None Seen (None Seen); Hyaline Casts Urine 0-2 /LPF (0-2); RBC Urine 0-2 /HPF (0-2); Squamous Epithelial Cell Urine 0-2 /HPF (0-2); WBC Urine 0-5 /HPF (0-5)
--- NOTE | 2024-06-27 19:44 | PC.NURSE ---
pt daughter is at the bedside, pt pulled his iv out. Daughter also states he has not had a bm in one week.
--- NOTE | 2024-06-27 20:36 | PHA.MEDREC ---
Pharmacy Consult ? Medication Reconciliation RN has completed the medication reconciliation. RPH reviewed
--- NOTE | 2024-06-27 20:53 | PM.IMHP ---
History of Present Illness Date of Service: 06/27/24 Attending physician on admission: Wan Ag Chief Complaint: Difficulty walking, unsafe at home Pt is a 68-year-old male with a PMH significant for CAD, cardiac arrest in 2020 complicated by anoxic brain injury with resulting major neurocognitive disorder, and behavioral disturbances?who presents to the ED from Dr. Hernandez's office for admission into the hospital for MRI and seizure workup. Patient is alert and oriented to self only, and thus incapable of providing accurate HPI which is instead obtained by daughter at bedside. Daughter notes patient has had a significant decline in the past month. Has a history of seizure disorder, and aggressive and agitated behavior, but overall well-controlled on current regimen. At baseline patient is able to walk, dress, and toilet himself independently, though in the last month has been incontinent of both bladder and bowel function. Initially started out his diarrhea, though the patient has not clearly had bowel movement in the past 2 weeks. Patient has also been noted to have ?weird? moments breathing and will also stop and stare out into the distance, similar to patient is petite mal seizures. In the past 2 weeks patient has physically declined to where he can no longer walk independently and has been crawling on hands and knees to the bathroom. Daughter notes had similar, though less severe, prior episode when he was had a UTI. Patient was initially brought to the hospital last night for infectious workup that was negative, including negative CT of head. Patient was discharged to home and presented to Dr. Hernandez's Neurology office this morning where he was then sent to the ED for further evaluation. Patient himself has no acute medical complaints. Daughter reports there has been no noted vomiting, recent diarrhea, cough, or URI type symptoms. In the ED pt's vitals stable and WNL. Labs are grossly unremarkable and baseline for patient. No leukocytosis. Stable H&H. No significant electrolyte abnormality. Renal and hepatic function WNL. Ammonia yesterday WNL. CXR showed UA negative for UTI both yesterday and today. Tox screen positive only for marijuana. Tested negative for flu, RSV, COVID. Brain MRI negative for acute intracranial abnormality exam of though showed global cerebral atrophy and chronic microangiopathy. CT of abdomen/pelvis without acute abnormality. Did show probable prostate nodule vs bladder wall lesion. EKG demonstrated normal sinus rhythm with RBBB and left anterior fascicular block. Pt was treated with home night meds of lorazepam, lamotrigine, melatonin, quetiapine, and trazodone. Pt will be admitted to the hospital under observation for treatment and further evaluation of ataxia and physical deconditioning concerning for worsening neurocognitive disorder. Review of Systems Review of Systems: Negative except for that which is stated in the [facility] Medical History (Updated 06/27/24 @ 21:30 by JOE Briceno) Anoxic brain injury Epilepsy Compulsive behavior disorder Cardiac arrest Surgical History No pertinent past surgical history Social History Alcohol intake: never Patient Tobacco Use Status: Former Tobacco user Smoked in Last 30 Days: No e-Cigarette/Vaping Use: Never Used Use of substances other than those prescribed or required for medical reasons: No Substance Use Type: Marijuana Advance Directives: No Advance Directives Information Provided: No Cognitive needs: No Hearing needs: No Vision needs: No Meds Allergies Allergy/AdvReac Type Severity Reaction Status Date / Time lisinopril Allergy Mild Unknown Verified 06/27/24 15:31 Active Medications: Current Medications Lamotrigine (Lamotrigine 25 Mg Tablet) 150 mg PO ONCE ONE Stop: 06/27/24 21:31 Melatonin (Melatonin 3 Mg Tablet) 9 mg PO ONCE ONE Stop: 06/27/24 21:31 Quetiapine Fumarate (Quetiapine Fumarate 100 Mg Tablet) 100 mg PO ONCE ONE Stop: 06/27/24 21:31 Trazodone HCl (Trazodone Hcl 50 Mg Tablet) 50 mg PO ONCE ONE Stop: 06/27/24 21:31 Home Medications ?Medication ?Instructions ?Recorded ?Confirmed ?Last Taken ?Type lamotrigine 150 mg tablet 150 mg PO BID 08/21/23 06/27/24 08/31/23 09:30 History quetiapine 100 mg tablet 100 mg PO BID 08/21/23 06/27/24 08/31/23 21:30 History sertraline 50 mg tablet 50 mg PO DAILY 08/21/23 06/27/24 08/31/23 09:30 History trazodone 50 mg tablet 50 mg PO BEDTIME 08/21/23 06/27/24 08/31/23 21:30 History aspirin 81 mg chewable tablet 1 tab PO DAILY 09/01/23 06/27/24 08/31/23 09:30 History atorvastatin 80 mg tablet 80 mg PO BEDTIME 09/01/23 06/27/24 08/31/23 21:30 History metoprolol succinate 25 mg 25 mg PO DAILY 09/01/23 06/27/24 08/31/23 21:30 History tablet,extended release 24 hr melatonin 10 mg tablet 10 mg PO BEDTIME 06/27/24 06/27/24 Unknown History quetiapine 25 mg tablet 25 mg PO BID 06/27/24 06/27/24 Unknown History Physical Exam Vital Signs and Narrative: Vital Signs: Last Vital Signs Temp 98.4 F 06/27/24 20:00 Pulse 72 06/27/24 20:00 Resp 16 06/27/24 20:00 BP 123/80 06/27/24 20:00 Pulse Ox 94 06/27/24 20:00 O2 Del Method Room Air 06/27/24 20:00 BMI result Body Mass Index 20.9 General: Alert and oriented to self only. Able to follow commands. In no acute distress Resp: CTA bilaterally CVS: S1, S2, RRR GI: +BS, NT, no distention Skin: Warm, dry Neuro: Cranial nerves II-XII grossly intact bilaterally. Motor grossly intact bilaterally. Preserved strength 5/5 of upper and lower extremities bilaterally. Extremities: No edema Psych: Confused, cooperative. Results Labs 06/27/24 15:42 06/27/24 15:42 Labs: Laboratory Results - last 24 hr 06/27/24 06/27/24 15:42 18:45 MCV 92.6 MCH 31.6 MCHC 34.2 RDW 17.0 H Plt Count 380 MPV 9.7 Immature Gran % (Auto) 0.3 Neut % (Auto) 56.5 Lymph % (Auto) 32.7 [place] % (Auto) 9.6 Eos % (Auto) 0.5 Baso % (Auto) 0.4 Lymph # (Auto) 2.4 [place] # (Auto) 0.7 Eos # (Auto) 0.0 Baso # (Auto) 0.0 Abs Immat Gran (auto) 0.02 Absolute Neuts (auto) 4.2 Absolute Nucleated RBC 0.000 Nucleated RBC % (auto) 0.0 ESR 12 Anion Gap 10 L Estim Creat Clear Calc 80.0 Estimated GFR > 60 Random Glucose 97 Calcium 8.9 Magnesium 1.9 Total Bilirubin 0.5 Direct Bilirubin 0.2 AST 37 ALT 13 Alkaline Phosphatase 117 C-Reactive Protein 0.62 H Total Protein 7.0 Albumin 4.3 Lipase 14 Urine Color Yellow Urine Appearance Clear Urine pH 6.0 Ur Specific [place] >= 1.030 H Urine Protein 30 (1+) H Urine Glucose (UA) Negative Urine Ketones 15 Urine Blood Negative Urine Nitrite Negative Ur Leukocyte Esterase Negative Urine RBC 0-2 Urine WBC 0-5 Ur Squamous Epith Cells 0-2 Urine Bacteria None Seen Hyaline Casts 0-2 Urine Yeast Present Influenza Type A (PCR) NEGATIVE Influenza Type B (PCR) NEGATIVE RSV RNA Qual (PCR) NEGATIVE SARS-CoV-2 RNA (RT-PCR) NEGATIVE Imaging Radiologist's Impressions: Impressions Brain MRI 06/27/24 17:08 IMPRESSION: Within the limitations of the study, 1. No acute intracranial abnormalities. 2. Global cerebral atrophy and chronic microangiopathy. Electronically signed by: Jann Pickett MD 06/27/2024 07:01 PM EST RP Abdomen/Pelvis CT 06/27/24 18:20 IMPRESSION: 1. There is mild diverticulosis, without acute diverticulitis. No obstruction, free intraperitoneal air or abscess is seen. There is no focal bowel wall thickening. 2. A 1.1 cm probable prostate nodule is seen, projecting into the bladder base. Less likely, this could represent a bladder wall lesion. Recommend correlation with the patient's serum PSA level. As well, consider further evaluation with prostate/bladder ultrasound. 3. There is thoracolumbar degenerative disc disease. Fleischner guidelines were followed. Electronically signed by: Leon Castellanos MD 06/27/2024 08:32 PM EST RP Assessment and Plan (1) Ataxia: Status: Acute Plan Pt is a 68-year-old male with a PMH significant for CAD, cardiac arrest in 2019 complicated by anoxic brain injury with resulting major neurocognitive disorder, and behavioral disturbances?who presents to the ED from Dr. Hernandez's office for admission into the hospital for MRI and seizure workup. Pt will be admitted to the hospital under observation for treatment and further evaluation of ataxia and physical deconditioning concerning for worsening neurocognitive disorder. Ataxia Patient with history of seizure disorder/major neurocognitive disorder secondary to anoxic brain injury from cardiac arrest Significant physical decline over past month, unable to ambulate or assist with ADLs x2 weeks ?Worsening seizure disorder Sent to the ED by Dr. Hernandez after office visit this morning ED workup unremarkable for abnormal labs or infectious etiology MRI negative Will get EEG Seizure precautions PT/OT evaluation Monitor on telemetry Abnormal CT abd/pelvis CT showed 1.1 cm probable prostate nodule vs bladder wall lesion Will check PSA level Follow up outpatient with prostate/bladder ultrasound Behavioral disturbances Continue lamotrigine, quetiapine, and sertraline CAD/HLD Continue aspirin and statin HTN Continue losartan and metoprolol Full Code Attending:?Dr. Ag DVT Prophylaxis: Lovenox Patient will be admitted to the hospital under observation for treatment and further evaluation of ataxia and generalized decline concerning for worsening major neurocognitive disorder. Patient will require cardiac monitoring and additional workup with EEG in the morning, as well as PT/OT consultation. Quality Stroke Does the patient have a stroke diagnosis?: No VTE Prior VTE?: No VTE Risk Level:: Medical - moderate - high VTE Device Contraindication: Treatment Not Indicated VTE Drug Contraindication: N/A - Med Ordered
[2024-06-27] MEDS: Melatonin 3 MG TABLET 9 MG PO (21:01)
[2024-06-27] MEDS: lamoTRIgine 25 MG TABLET 150 MG PO (21:01)
[2024-06-27] MEDS: QUEtiapine Fumarate 100 MG TABLET PO (21:01)
[2024-06-27] MEDS: traZODone HCL 50 MG TABLET PO (21:01)
[2024-06-27] MEDS: Enoxaparin Sodium 40 MG/0.4 ML SYRINGE SUBCUT (22:15)
[2024-06-27] MEDS: Atorvastatin Calcium 80 MG TABLET PO (22:15)
--- NOTE | 2024-06-27 22:18 | PC.NURSE ---
pt has a bruised area to his left upper flank. unknown how he obtained the bruise. pt poor historian.
[2024-06-27 22:47] LABS: Prostate Specific Antigen 0.77 ng/mL (<0.05-4.0)
[2024-06-28] VITALS (8 sets, daily range): BP systolic 110–129; BP diastolic 56–73; PULSE 60–80; RESP 16–20; TEMP 36.3–37.4; O2SAT 94–99; BMI 20.9
--- NOTE | 2024-06-28 | EEG_ITS ---
This is a 16-channel EEG with an EKG lead. The patient is reported awake and uncooperative during the tracing. Background EEG rhythm is frequently contaminated by muscle and lead and movement artifacts. When noted, it was medium amplitude mixed theta beta with no obvious asymmetry or paroxysmal tendency. Photic stimulation does not produce any significant abnormality. Hyperventilation is not performed. IMPRESSION: Limited EEG revealing generalized slowing, but no obvious epileptic discharges. MD CHARLES Patel/GEOVANNI / [phone]
--- NOTE | 2024-06-28 08:54 | MHC.CM.PN ---
CM spoke with Daughter/Brissa @ [phone] and addressed ROSE with her (original will be mailed to Brissa @ [address], [phone]) and a copy has been placed on the chart. 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 Family has already contacted [facility]. Home/new VNA VS STR pending PT Eval is the tentative plan and CM has initiated and will follow for dc planning. PCP is Leon Sanchez and either or Daughter will transport. There is no formal HCP and Patient is here with AMS, Major Neurocognitive D/o/TBI.
[2024-06-28] MEDS: QUEtiapine Fumarate 25 MG TABLET PO ×2 (09:30→20:03)
[2024-06-28] MEDS: Sertraline HCL 50 MG TABLET PO (09:30)
[2024-06-28] MEDS: QUEtiapine Fumarate 100 MG TABLET PO ×2 (09:31→20:03)
[2024-06-28] MEDS: Losartan Potassium 25 MG TABLET PO (09:31)
[2024-06-28] MEDS: Metoprolol Succinate ER 25 MG TAB.ER.24H PO (09:31)
[2024-06-28] MEDS: lamoTRIgine 25 MG TABLET 150 MG PO ×2 (09:31→20:02)
[2024-06-28] MEDS: Aspirin 81 MG TAB.CHEW PO (09:31)
[2024-06-28] MEDS: 0.9 % Sodium Chloride Flush 3 ML SYRINGE IVFLUSH ×3 (09:36→20:04)
--- NOTE | 2024-06-28 10:30 | MHC.CM.PN ---
PT is recommending STR; CM will follow.
--- NOTE | 2024-06-28 10:37 | HO.PM.IMPN ---
Subjective Subjective Date of Service: 06/28/24 Interval History: seen and examined has no complaints plesantly confused Physical Exam Vital Signs: Vital Signs: Last Vital Signs Temp 99.3 F 06/28/24 07:11 Pulse 80 06/28/24 09:45 Resp 20 06/28/24 07:11 BP 129/65 06/28/24 09:45 Pulse Ox 94 06/28/24 09:45 O2 Del Method Room Air 06/28/24 07:11 BMI result Body Mass Index 20.9 Const: Other: General - no acute distress, appears comfortable Cardiovascular - regular rate and rhythm, S1-S2 Lungs - normal respiratory effort, clear to auscultation bilaterally, no wheezing Abdomen - soft, nontender, no rebound or guarding Extremities - no edema bilaterally Neuro - awake and alert; oriented to self and knows hes in a hospital; knows where he lives; finger to nose abnormal on L Objective Data Active Medications Acetaminophen (Acetaminophen 325 Mg Tablet) 650 mg PO Q6H PRN PRN Reason: Pain, Mild 1-3,fever,headache Aspirin (Aspirin 81 Mg Tab.Chew) 81 mg PO DAILY [facility] Last Admin: 06/28/24 09:31 Dose: 81 mg Documented By: BELINDA Atorvastatin Calcium (Atorvastatin Calcium 80 Mg Tablet) 80 mg PO BEDTIME [facility] Last Admin: 06/27/24 22:15 Dose: 80 mg Documented By: MARTI Benzonatate (Benzonatate 100 Mg Capsule) 100 mg PO TID PRN PRN Reason: Cough Calcium Carbonate (Calcium Carbonate 750 Mg Tab.Chew) 750 mg PO Q4H PRN PRN Reason: Heartburn Enoxaparin Sodium (Enoxaparin Sodium 40 Mg/0.4 Ml Syringe) 40 mg SUBCUT Q24H [facility] Last Admin: 06/27/24 22:15 Dose: 40 mg Documented By: MARTI Lamotrigine (Lamotrigine 25 Mg Tablet) 150 mg PO BID [facility] Last Admin: 06/28/24 09:31 Dose: 150 mg Documented By: BELINDA Losartan Potassium (Losartan Potassium 25 Mg Tablet) 25 mg PO DAILY [facility]; Protocol Last Admin: 06/28/24 09:31 Dose: 25 mg Documented By: BELINDA Magnesium Hydroxide (Milk Of Magnesia 30 Ml Oral.Susp) 30 ml PO DAILY PRN PRN Reason: Constipation Melatonin (Melatonin 3 Mg Tablet) 6 mg PO BEDTIME [facility] Last Admin: 06/27/24 22:11 Dose: Not Given Documented By: MARTI Non-Admin Reason: See Note Metoprolol Succinate (Metoprolol Succinate Er 25 Mg Tab.Er.24h) 25 mg PO DAILY [facility]; Protocol Last Admin: 06/28/24 09:31 Dose: 25 mg Documented By: BELINDA Ondansetron HCl (Ondansetron Hcl 4 Mg/2 Ml Vial) 4 mg IVPUSH Q8H PRN PRN Reason: Nausea and Vomiting Quetiapine Fumarate (Quetiapine Fumarate 25 Mg Tablet) 25 mg PO BID [facility] Last Admin: 06/28/24 09:30 Dose: 25 mg Documented By: BELINDA Quetiapine Fumarate (Quetiapine Fumarate 100 Mg Tablet) 100 mg PO BID [facility] Last Admin: 06/28/24 09:31 Dose: 100 mg Documented By: BELINDA Sertraline HCl (Sertraline Hcl 50 Mg Tablet) 50 mg PO DAILY [facility] Last Admin: 06/28/24 09:30 Dose: 50 mg Documented By: BELINDA Sodium Chloride (0.9 % Sodium Chloride Flush 3 Ml Syringe) 3 ml IVFLUSH QSHIFT [facility] Last Admin: 06/28/24 09:36 Dose: 3 ml Documented By: BELINDA Trazodone HCl (Trazodone Hcl 50 Mg Tablet) 50 mg PO BEDTIME [facility] Last Admin: 06/27/24 22:11 Dose: Not Given Documented By: MARTI Non-Admin Reason: See Note Labs 06/27/24 15:42 06/27/24 15:42 Labs: Laboratory Results - last 24 hr 06/27/24 06/27/24 15:42 18:45 MCV 92.6 MCH 31.6 MCHC 34.2 RDW 17.0 H Plt Count 380 MPV 9.7 Immature Gran % (Auto) 0.3 Neut % (Auto) 56.5 Lymph % (Auto) 32.7 [place] % (Auto) 9.6 Eos % (Auto) 0.5 Baso % (Auto) 0.4 Lymph # (Auto) 2.4 [place] # (Auto) 0.7 Eos # (Auto) 0.0 Baso # (Auto) 0.0 Abs Immat Gran (auto) 0.02 Absolute Neuts (auto) 4.2 Absolute Nucleated RBC 0.000 Nucleated RBC % (auto) 0.0 ESR 12 Anion Gap 10 L Estim Creat Clear Calc 80.0 Estimated GFR > 60 Random Glucose 97 Calcium 8.9 Magnesium 1.9 Total Bilirubin 0.5 Direct Bilirubin 0.2 AST 37 ALT 13 Alkaline Phosphatase 117 C-Reactive Protein 0.62 H Total Protein 7.0 Albumin 4.3 Lipase 14 Prostate Specific Ag 0.77 Urine Color Yellow Urine Appearance Clear Urine pH 6.0 Ur Specific [place] >= 1.030 H Urine Protein 30 (1+) H Urine Glucose (UA) Negative Urine Ketones 15 Urine Blood Negative Urine Nitrite Negative Ur Leukocyte Esterase Negative Urine RBC 0-2 Urine WBC 0-5 Ur Squamous Epith Cells 0-2 Urine Bacteria None Seen Hyaline Casts 0-2 Urine Yeast Present Influenza Type A (PCR) NEGATIVE Influenza Type B (PCR) NEGATIVE RSV RNA Qual (PCR) NEGATIVE SARS-CoV-2 RNA (RT-PCR) NEGATIVE Assessment and Plan (1) Ataxia: Status: Acute (2) Altered mental status: Status: Acute Plan Pt is a 68-year-old male with a PMH significant for CAD, cardiac arrest in 2020 complicated by anoxic brain injury with resulting major neurocognitive disorder, and behavioral disturbances?who presents to the ED from Dr. Hernandez's office for admission into the hospital for MRI and seizure workup. Pt will be admitted to the hospital under observation for treatment and further evaluation of ataxia and physical deconditioning concerning for worsening neurocognitive disorder. Ataxia Patient with history of seizure disorder/major neurocognitive disorder secondary to anoxic brain injury from cardiac arrest Significant physical decline over past month, unable to ambulate or assist with ADLs x2 weeks seen by PT with recs for STR await neuro input MRI negative, EEG pending Abnormal CT abd/pelvis CT showed 1.1 cm probable prostate nodule vs bladder wall lesion PSA 0.77 outpt f/u Behavioral disturbances Continue lamotrigine, quetiapine, and sertraline CAD/HLD Continue aspirin and statin HTN Continue losartan and metoprolol dvt pptx - lovenox pending neuro eval for further work up/treatment, will update family after eval Quality Stroke Does the patient have a stroke diagnosis?: No VTE Prior VTE?: No VTE Risk Level:: Medical - moderate - high VTE Device Contraindication: Treatment Not Indicated VTE Drug Contraindication: N/A - Med Ordered
[2024-06-28] MEDS: polyethylene glycoL 3350 17 GM POWD.PACK PO (14:31)
--- NOTE | 2024-06-28 14:54 | P.CNNE_ITS ---
History of Present Illness Data of Consult Service Date: 06/28/24 Primary Care Provider: Leon Godinez, [facility]- HPI Reason for consult: Encephalopathy 68 years old man with underlying history of anoxic encephalopathy behavioral disorder associated with it and seizure disorder was brought to office because of change in mental status falling and a behavior that family could not handle. He was referred to emergency room to rule out any medical illnesses or seizure disorder contributing to this problem. Now he was feeling better stating that he was fine. Review of Systems 2 Review of Systems: No recent cold or flu-like illness PMFSH Past Medical History Medical History (Updated 06/28/24 @ 14:56 by Blanco Hernandez MD) Anoxic brain injury Epilepsy Compulsive behavior disorder Cardiac arrest Surgical History Surgical History No pertinent past surgical history Social History Social History Household Members: Unknown / Unable to assess Housing: Unknown / Unable to assess Alcohol intake: never Patient Tobacco Use Status: Former Tobacco user e-Cigarette/Vaping Use: Never Used Substance Use Type: Marijuana service: No Cognitive needs: No Hearing needs: No Vision needs: No Meds Allergies Allergy/AdvReac Type Severity Reaction Status Date / Time lisinopril Allergy Mild Unknown Verified 06/27/24 15:31 Active Medications: Current Medications Acetaminophen (Acetaminophen 325 Mg Tablet) 650 mg PO Q6H PRN PRN Reason: Pain, Mild 1-3,fever,headache Aspirin (Aspirin 81 Mg Tab.Chew) 81 mg PO DAILY [facility] Last Admin: 06/28/24 09:31 Dose: 81 mg Atorvastatin Calcium (Atorvastatin Calcium 80 Mg Tablet) 80 mg PO BEDTIME [facility] Last Admin: 06/27/24 22:15 Dose: 80 mg Benzonatate (Benzonatate 100 Mg Capsule) 100 mg PO TID PRN PRN Reason: Cough Calcium Carbonate (Calcium Carbonate 750 Mg Tab.Chew) 750 mg PO Q4H PRN PRN Reason: Heartburn Enoxaparin Sodium (Enoxaparin Sodium 40 Mg/0.4 Ml Syringe) 40 mg SUBCUT Q24H [facility] Last Admin: 06/27/24 22:15 Dose: 40 mg Lamotrigine (Lamotrigine 25 Mg Tablet) 150 mg PO BID [facility] Last Admin: 06/28/24 09:31 Dose: 150 mg Losartan Potassium (Losartan Potassium 25 Mg Tablet) 25 mg PO DAILY [facility]; Protocol Last Admin: 06/28/24 09:31 Dose: 25 mg Magnesium Hydroxide (Milk Of Magnesia 30 Ml Oral.Susp) 30 ml PO DAILY PRN PRN Reason: Constipation Melatonin (Melatonin 3 Mg Tablet) 6 mg PO BEDTIME [facility] Last Admin: 06/27/24 22:11 Dose: Not Given Metoprolol Succinate (Metoprolol Succinate Er 25 Mg Tab.Er.24h) 25 mg PO DAILY [facility]; Protocol Last Admin: 06/28/24 09:31 Dose: 25 mg Ondansetron HCl (Ondansetron Hcl 4 Mg/2 Ml Vial) 4 mg IVPUSH Q8H PRN PRN Reason: Nausea and Vomiting Polyethylene Glycol (Polyethylene Glycol 3350 17 Gm Powd.Pack) 17 gm PO DAILY [facility] Last Admin: 06/28/24 14:31 Dose: 17 gm Quetiapine Fumarate (Quetiapine Fumarate 25 Mg Tablet) 25 mg PO BID [facility] Last Admin: 06/28/24 09:30 Dose: 25 mg Quetiapine Fumarate (Quetiapine Fumarate 100 Mg Tablet) 100 mg PO BID [facility] Last Admin: 06/28/24 09:31 Dose: 100 mg Sertraline HCl (Sertraline Hcl 50 Mg Tablet) 50 mg PO DAILY [facility] Last Admin: 06/28/24 09:30 Dose: 50 mg Sodium Chloride (0.9 % Sodium Chloride Flush 3 Ml Syringe) 3 ml IVFLUSH QSHIFT [facility] Last Admin: 06/28/24 14:31 Dose: 3 ml Trazodone HCl (Trazodone Hcl 50 Mg Tablet) 50 mg PO BEDTIME [facility] Last Admin: 06/27/24 22:11 Dose: Not Given Home Medications ?Medication ?Instructions ?Recorded ?Confirmed ?Last Taken ?Type lamotrigine 150 mg tablet 150 mg PO BID 08/21/23 06/27/24 08/31/23 09:30 History quetiapine 100 mg tablet 100 mg PO BID 08/21/23 06/27/24 08/31/23 21:30 History sertraline 50 mg tablet 50 mg PO DAILY 08/21/23 06/27/24 08/31/23 09:30 History trazodone 50 mg tablet 50 mg PO BEDTIME 08/21/23 06/27/24 08/31/23 21:30 History aspirin 81 mg chewable tablet 1 tab PO DAILY 09/01/23 06/27/24 08/31/23 09:30 History atorvastatin 80 mg tablet 80 mg PO BEDTIME 09/01/23 06/27/24 08/31/23 21:30 History metoprolol succinate 25 mg 25 mg PO DAILY 09/01/23 06/27/24 08/31/23 21:30 History tablet,extended release 24 hr melatonin 10 mg tablet 10 mg PO BEDTIME 06/27/24 06/27/24 Unknown History quetiapine 25 mg tablet 25 mg PO BID 06/27/24 06/27/24 Unknown History Physical Exam 2 Vital Signs: Vital Signs: Last Vital Signs Temp 98.6 F 06/28/24 12:00 Pulse 77 06/28/24 12:00 Resp 20 06/28/24 12:00 BP 127/73 06/28/24 12:00 Pulse Ox 99 06/28/24 12:00 O2 Del Method Room Air 06/28/24 12:00 BMI result Body Mass Index 20.9 Neuro: Other: He is alert and awake with vague affect. He is able to answer simple questions. Face is symmetrical. Visual cardenas are full. There was no obvious focal arm or leg weakness. Results Labs 06/27/24 15:42 06/27/24 15:42 Labs: Short CBC 06/27/24 Range/Units 15:42 WBC 7.5 (4.8-10.8) X10*3/uL Hgb 11.9 L (14.0-18.0) g/dl Hct 34.8 L (42.0-52.0) % Plt Count 380 (160-400) X10*3/uL BMP 06/27/24 15:42 Sodium 138 Potassium 3.7 Chloride 106 Carbon Dioxide 26 BUN 15 Creatinine 0.92 Calcium 8.9 Liver Function 06/27/24 Range/Units 15:42 Total Bilirubin 0.5 (0.0-1.0) mg/dL Direct Bilirubin 0.2 (0.0-0.5) mg/dL AST 37 (5-37) U/L ALT 13 (0-40) U/L Alkaline Phosphatase 117 (39-117) U/L Albumin 4.3 (3.5-5.0) g/dL Urine 06/27/24 Range/Units 18:45 Urine Color Yellow Urine Appearance Clear Urine pH 6.0 (5.0-9.0) Ur Specific [place] >= 1.030 H (1.005-1.025) Urine Protein 30 (1+) H (Neg-Trace) mg/dL Urine Glucose (UA) Negative (Negative) mg/dL MRI of brain did not reveal any significant acute abnormality. Mild cerebral atrophy and chronic microvascular ischemic changes were noted. EEG was limited due to movement artifacts but did not reveal any obvious epileptic tendency. Assessment and Plan (1) Altered mental status: Qualifiers: Altered mental status type: unspecified Qualified Code(s): R41.82 - Altered mental status, unspecified Status: Acute 68 years old man with seizure disorder and behavioral disorder related to anoxic encephalopathy. At this time no new pathology was noted. EEG did not reveal epileptic discharges. MRI was okay. My recommendation is to review any possibility of infection and otherwise involve social work faculty member were proper placement. As far as medicines are concerned, he has been relatively stable on this regimen of lamotrigine, quetiapine and sertraline which could continue. Procedures Date of Service Date of Service: 06/28/24
[2024-06-28] MEDS: Atorvastatin Calcium 80 MG TABLET PO (20:03)
[2024-06-28] MEDS: traZODone HCL 50 MG TABLET PO (20:03)
[2024-06-28] MEDS: Enoxaparin Sodium 40 MG/0.4 ML SYRINGE SUBCUT (20:03)
[2024-06-28] MEDS: Melatonin 3 MG TABLET 6 MG PO (20:03)
[2024-06-29] VITALS (7 sets, daily range): BP systolic 90–117; BP diastolic 56–85; PULSE 53–72; RESP 18–20; TEMP 36.2–36.7; O2SAT 96–98
[2024-06-29] MEDS: 0.9 % Sodium Chloride Flush 3 ML SYRINGE IVFLUSH ×3 (08:24→20:09)
[2024-06-29] MEDS: polyethylene glycoL 3350 17 GM POWD.PACK PO (08:24)
[2024-06-29] MEDS: lamoTRIgine 25 MG TABLET 150 MG PO ×2 (08:24→20:07)
[2024-06-29] MEDS: Sertraline HCL 50 MG TABLET PO (08:24)
[2024-06-29] MEDS: Aspirin 81 MG TAB.CHEW PO (08:24)
[2024-06-29] MEDS: QUEtiapine Fumarate 100 MG TABLET PO ×2 (08:24→20:09)
[2024-06-29] MEDS: Losartan Potassium 25 MG TABLET PO (08:24)
[2024-06-29] MEDS: QUEtiapine Fumarate 25 MG TABLET PO ×2 (08:24→20:08)
--- NOTE | 2024-06-29 11:49 | P.PNIM_ITS ---
Subjective Subjective Date of Service: 06/29/24 Interval History: seen and examined has no complaints plesantly confused and tolerating diet Review of Systems Review of Systems: Yes all other systems are reviewed and are negative Physical Exam 2 Vital Signs: Vital Signs: Last Vital Signs Temp 97.2 F 06/29/24 11:03 Pulse 65 06/29/24 11:03 Resp 18 06/29/24 11:03 BP 98/59 L 06/29/24 11:03 Pulse Ox 96 06/29/24 11:03 O2 Del Method Room Air 06/29/24 11:03 BMI result Body Mass Index 20.9 Const: Other: General - no acute distress, appears comfortable Cardiovascular - regular rate and rhythm, S1-S2 Lungs - normal respiratory effort, clear to auscultation bilaterally, no wheezing Abdomen - soft, nontender, no rebound or guarding Extremities - no edema bilaterally Neuro - awake and alert; oriented to self ; knows where he lives; no focal deficit Objective Data Active Medications Acetaminophen (Acetaminophen 325 Mg Tablet) 650 mg PO Q6H PRN PRN Reason: Pain, Mild 1-3,fever,headache Aspirin (Aspirin 81 Mg Tab.Chew) 81 mg PO DAILY [facility] Last Admin: 06/29/24 08:24 Dose: 81 mg Documented By: JANIE Atorvastatin Calcium (Atorvastatin Calcium 80 Mg Tablet) 80 mg PO BEDTIME [facility] Last Admin: 06/28/24 20:03 Dose: 80 mg Documented By: ALVIN Benzonatate (Benzonatate 100 Mg Capsule) 100 mg PO TID PRN PRN Reason: Cough Calcium Carbonate (Calcium Carbonate 750 Mg Tab.Chew) 750 mg PO Q4H PRN PRN Reason: Heartburn Enoxaparin Sodium (Enoxaparin Sodium 40 Mg/0.4 Ml Syringe) 40 mg SUBCUT Q24H [facility] Last Admin: 06/28/24 20:03 Dose: 40 mg Documented By: ALVIN Lamotrigine (Lamotrigine 25 Mg Tablet) 150 mg PO BID [facility] Last Admin: 06/29/24 08:24 Dose: 150 mg Documented By: JANIE Losartan Potassium (Losartan Potassium 25 Mg Tablet) 25 mg PO DAILY [facility]; Protocol Last Admin: 06/29/24 08:24 Dose: 25 mg Documented By: JANIE Magnesium Hydroxide (Milk Of Magnesia 30 Ml Oral.Susp) 30 ml PO DAILY PRN PRN Reason: Constipation Melatonin (Melatonin 3 Mg Tablet) 6 mg PO BEDTIME [facility] Last Admin: 06/28/24 20:03 Dose: 6 mg Documented By: ALVIN Metoprolol Succinate (Metoprolol Succinate Er 25 Mg Tab.Er.24h) 25 mg PO DAILY [facility]; Protocol Last Admin: 06/29/24 08:27 Dose: Not Given Documented By: JANIE Non-Admin Reason: Decreased Heart Rate Ondansetron HCl (Ondansetron Hcl 4 Mg/2 Ml Vial) 4 mg IVPUSH Q8H PRN PRN Reason: Nausea and Vomiting Polyethylene Glycol (Polyethylene Glycol 3350 17 Gm Powd.Pack) 17 gm PO DAILY [facility] Last Admin: 06/29/24 08:24 Dose: 17 gm Documented By: JANIE Quetiapine Fumarate (Quetiapine Fumarate 25 Mg Tablet) 25 mg PO BID [facility] Last Admin: 06/29/24 08:24 Dose: 25 mg Documented By: JANIE Quetiapine Fumarate (Quetiapine Fumarate 100 Mg Tablet) 100 mg PO BID [facility] Last Admin: 06/29/24 08:24 Dose: 100 mg Documented By: JANIE Sertraline HCl (Sertraline Hcl 50 Mg Tablet) 50 mg PO DAILY [facility] Last Admin: 06/29/24 08:24 Dose: 50 mg Documented By: JANIE Sodium Chloride (0.9 % Sodium Chloride Flush 3 Ml Syringe) 3 ml IVFLUSH QSHIFT [facility] Last Admin: 06/29/24 08:24 Dose: 3 ml Documented By: JANIE Trazodone HCl (Trazodone Hcl 50 Mg Tablet) 50 mg PO BEDTIME [facility] Last Admin: 06/28/24 20:03 Dose: 50 mg Documented By: ALVIN Labs 06/27/24 15:42 06/27/24 15:42 Assessment and Plan (1) Ataxia: Status: Acute (2) Altered mental status: Status: Acute Plan Pt is a 68-year-old male with a PMH significant for CAD, cardiac arrest in 2019 complicated by anoxic brain injury with resulting major neurocognitive disorder, and behavioral disturbances?who presents to the ED from Dr. Hernandez's office for admission into the hospital for MRI and seizure workup. Pt will be admitted to the hospital under observation for treatment and further evaluation of ataxia and physical deconditioning concerning for worsening neurocognitive disorder. Ataxia Patient with history of seizure disorder/major neurocognitive disorder secondary to anoxic brain injury from cardiac arrest Significant physical decline over past month, unable to ambulate or assist with ADLs x2 weeks No clear infection PT rec STR neuro input appreciated; no changes in his medications, rule out infection, PT MRI negative, EEG with no reported abnormalities to suggest seizures. Abnormal CT abd/pelvis CT showed 1.1 cm probable prostate nodule vs bladder wall lesion PSA 0.77 outpt f/u Behavioral disturbances Continue lamotrigine, quetiapine, and sertraline CAD/HLD Continue aspirin and statin HTN Continue losartan and metoprolol dvt pptx - lovenox Patient waiting safe discharge planning as PT rec STR. Quality Stroke Does the patient have a stroke diagnosis?: No VTE Prior VTE?: No VTE Risk Level:: Medical - moderate - high VTE Device Contraindication: Treatment Not Indicated VTE Drug Contraindication: N/A - Med Ordered
[2024-06-29] MEDS: Milk of Magnesia 30 ML ORAL.SUSP PO (14:10)
[2024-06-29] MEDS: Tamsulosin HCL 0.4 MG CAPSULE PO (16:10)
[2024-06-29] MEDS: Melatonin 3 MG TABLET 6 MG PO (20:08)
[2024-06-29] MEDS: traZODone HCL 50 MG TABLET PO (20:08)
[2024-06-29] MEDS: Atorvastatin Calcium 80 MG TABLET PO (20:09)
--- NOTE | 2024-06-30 01:06 | PC.NURSE ---
0038 bread supervisor Sondra Emery notified that this patient with fall at home and confusion is in need of sitter. Suggested you libby have to ask FIELD UNDERWRITER on floor to sit or do frequent checks because no extra staff to sit. Víctor notified. MD to floor but did not see this RN, and messaged MD again at 0105 as patient was bladder scanned for 700mL PVR, incontinent approx 2200 as charted.
--- NOTE | 2024-06-30 02:02 | PC.NURSE ---
Attempted to st.cath patient. Catheter was met with resistance and discomfort to patient. At that point patient urinated and urine escaped around catheter onto bed and 200mL resulted in bag. I do not believe the catheter was in the bladder due to resistance, perhaps draining the urine in the urethra instead. bladder scan after st cath revealed 478mL still in bladder. Dr. Bains notified via [facility], He replied maybe he needs gordon with coudet .
[2024-06-30 03:53] VITALS: BP 124/60; PULSE 57; RESP 18; TEMP 36.2; O2SAT 95
[2024-06-30 05:54] LABS: MANUAL DIFF FLAG NO
[2024-06-30 06:11] LABS: Anion Gap 9 (12-20); Blood Urea Nitrogen 12 mg/dL (9-16); Calcium 8.3 mg/dL (8.4-10.2); Carbon Dioxide 29 mmol/L (22-29); Chloride 104 mmol/L (96-108); Creatinine Clr Calc Pharmacy 74.6; Estimated Glomerular Filt Rate > 60; Glucose Random 97 mg/dL (60-115); Potassium 3.4 mmol/L (3.3-5.1); Sodium 139 mmol/L (135-145)
--- NOTE | 2024-06-30 06:26 | PM.EVENT ---
Event Note Date of Service: 06/30/24 Event Note: Urinary retention > 700 mL; unsuccessful straight catheterization due to resistance. [place] catheter inserted using a coude tip. Time Spent With Patient Time: Total time managing care of this patient today ____ minutes.
[2024-06-30 06:28] LABS: Basophils Percent Auto 0.4 % (0-2); Eosinophils Absolute Auto 0.2 X10*3/uL (0.0-0.4); Eosinophils Percent Auto 2.7 % (0-4); Hemoglobin 11.1 g/dl (14.0-18.0); Imm Gran Abs Auto 0.02 X10*3/uL (0.00-0.03); Imm Gran Pct Auto 0.3 % (0.0-0.4); Lymphocytes Absolute Auto 2.9 X10*3/uL (1.2-4.9); Lymphocytes Percent Auto 39.7 % (20-40); Mean Corpuscular HGB Conc 35.8 g/dl (31.0-36.0); Mean Corpuscular Volume 92.3 fL (80.0-98.0); Mean Platelet Volume 9.5 fL (9.4-12.4); Monocytes Absolute Auto 0.6 X10*3/uL (0.1-1.2); Monocytes Percent Auto 8.7 % (2-11); Neutrophils Absolute Auto 3.6 x10*3/uL (2.0-8.3); Neutrophils Percent Auto 48.2 % (45-73); Platelet Count 345 X10*3/uL (160-400); Red Blood Count 3.36 X10*6/uL (4.60-5.80); Red Cell Distribution Width 16.8 % (11.0-16.0); White Blood Count 7.4 X10*3/uL (4.8-10.8)
--- NOTE | 2024-06-30 07:03 | PC.NURSE ---
refuses tele monitor
[2024-06-30 07:07] VITALS: BP 109/65; PULSE 62; RESP 18; TEMP 36.5; O2SAT 96
[2024-06-30] MEDS: lamoTRIgine 25 MG TABLET 150 MG PO ×2 (08:01→19:44)
[2024-06-30] MEDS: QUEtiapine Fumarate 100 MG TABLET PO ×2 (08:01→19:46)
[2024-06-30] MEDS: QUEtiapine Fumarate 25 MG TABLET PO ×2 (08:01→19:46)
[2024-06-30] MEDS: Milk of Magnesia 30 ML ORAL.SUSP PO (08:01)
[2024-06-30] MEDS: Sertraline HCL 50 MG TABLET PO (08:02)
[2024-06-30] MEDS: polyethylene glycoL 3350 17 GM POWD.PACK PO (08:02)
[2024-06-30] MEDS: Aspirin 81 MG TAB.CHEW PO (08:02)
[2024-06-30] MEDS: Tamsulosin HCL 0.4 MG CAPSULE PO (08:02)
[2024-06-30] MEDS: Metoprolol Succinate ER 25 MG TAB.ER.24H PO (08:02)
[2024-06-30] MEDS: 0.9 % Sodium Chloride Flush 3 ML SYRINGE IVFLUSH ×3 (08:02→19:51)
--- NOTE | 2024-06-30 09:56 | MHC.CM.PN ---
CM spoke with pt.'s today, she is in agreement for pt. to go to STR. They have stairs in the home, bedroom on second floor. DCP is STR and then home with 's care. Referrals out.
[2024-06-30 11:12] VITALS: BP 106/60; PULSE 62; RESP 18; TEMP 36.3; O2SAT 94
--- NOTE | 2024-06-30 12:35 | P.PNIM_ITS ---
Subjective Subjective Date of Service: 06/30/24 Interval History: seen and examined has no complaints Developed urine retention overnight, [place] in place plesantly confused and tolerating diet Review of Systems Review of Systems: Yes all other systems are reviewed and are negative Physical Exam 2 Vital Signs: Vital Signs: Last Vital Signs Temp 97.4 F 06/30/24 11:12 Pulse 62 06/30/24 11:12 Resp 18 06/30/24 11:12 BP 106/60 06/30/24 11:12 Pulse Ox 94 06/30/24 11:12 O2 Del Method Room Air 06/30/24 11:12 BMI result Body Mass Index 20.9 Const: Other: General - no acute distress, appears comfortable Cardiovascular - regular rate and rhythm, S1-S2 Lungs - normal respiratory effort, clear to auscultation bilaterally, no wheezing Abdomen - soft, nontender, no rebound or guarding Extremities - no edema bilaterally Neuro - awake and alert; oriented to self ; knows where he lives; no focal deficit Objective Data Active Medications Acetaminophen (Acetaminophen 325 Mg Tablet) 650 mg PO Q6H PRN PRN Reason: Pain, Mild 1-3,fever,headache Aspirin (Aspirin 81 Mg Tab.Chew) 81 mg PO DAILY [facility] Last Admin: 06/30/24 08:02 Dose: 81 mg Documented By: JANIE Atorvastatin Calcium (Atorvastatin Calcium 80 Mg Tablet) 80 mg PO BEDTIME [facility] Last Admin: 06/29/24 20:09 Dose: 80 mg Documented By: ALVIN Benzonatate (Benzonatate 100 Mg Capsule) 100 mg PO TID PRN PRN Reason: Cough Calcium Carbonate (Calcium Carbonate 750 Mg Tab.Chew) 750 mg PO Q4H PRN PRN Reason: Heartburn Enoxaparin Sodium (Enoxaparin Sodium 40 Mg/0.4 Ml Syringe) 40 mg SUBCUT Q24H [facility] Last Admin: 06/29/24 20:13 Dose: Not Given Documented By: ALVIN Non-Admin Reason: Patient Refused Lamotrigine (Lamotrigine 25 Mg Tablet) 150 mg PO BID [facility] Last Admin: 06/30/24 08:01 Dose: 150 mg Documented By: JANIE Losartan Potassium (Losartan Potassium 25 Mg Tablet) 25 mg PO DAILY [facility]; Protocol Last Admin: 06/29/24 08:24 Dose: 25 mg Documented By: JANIE Magnesium Hydroxide (Milk Of Magnesia 30 Ml Oral.Susp) 30 ml PO DAILY PRN PRN Reason: Constipation Last Admin: 06/30/24 08:01 Dose: 30 ml Documented By: JANIE Melatonin (Melatonin 3 Mg Tablet) 6 mg PO BEDTIME [facility] Last Admin: 06/29/24 20:08 Dose: 6 mg Documented By: ALVIN Metoprolol Succinate (Metoprolol Succinate Er 25 Mg Tab.Er.24h) 25 mg PO DAILY [facility]; Protocol Last Admin: 06/30/24 08:02 Dose: 25 mg Documented By: JANIE Ondansetron HCl (Ondansetron Hcl 4 Mg/2 Ml Vial) 4 mg IVPUSH Q8H PRN PRN Reason: Nausea and Vomiting Polyethylene Glycol (Polyethylene Glycol 3350 17 Gm Powd.Pack) 17 gm PO DAILY [facility] Last Admin: 06/30/24 08:02 Dose: 17 gm Documented By: JANIE Quetiapine Fumarate (Quetiapine Fumarate 25 Mg Tablet) 25 mg PO BID [facility] Last Admin: 06/30/24 08:01 Dose: 25 mg Documented By: JANIE Quetiapine Fumarate (Quetiapine Fumarate 100 Mg Tablet) 100 mg PO BID [facility] Last Admin: 06/30/24 08:01 Dose: 100 mg Documented By: JANIE Sertraline HCl (Sertraline Hcl 50 Mg Tablet) 50 mg PO DAILY [facility] Last Admin: 06/30/24 08:02 Dose: 50 mg Documented By: JANIE Sodium Chloride (0.9 % Sodium Chloride Flush 3 Ml Syringe) 3 ml IVFLUSH [facility] Last Admin: 06/30/24 08:02 Dose: 3 ml Documented By: JANIE Tamsulosin HCl (Tamsulosin Hcl 0.4 Mg Capsule) 0.4 mg PO DAILY [facility] Last Admin: 06/30/24 08:02 Dose: 0.4 mg Documented By: JANIE Trazodone HCl (Trazodone Hcl 50 Mg Tablet) 50 mg PO BEDTIME [facility] Last Admin: 06/29/24 20:08 Dose: 50 mg Documented By: ALVIN Labs 06/30/24 05:32 06/30/24 05:32 Labs: Laboratory Results - last 24 hr 06/30/24 05:32 MCV 92.3 MCH 33.0 MCHC 35.8 RDW 16.8 H Plt Count 345 MPV 9.5 Immature Gran % (Auto) 0.3 Neut % (Auto) 48.2 Lymph % (Auto) 39.7 [place] % (Auto) 8.7 Eos % (Auto) 2.7 Baso % (Auto) 0.4 Lymph # (Auto) 2.9 [place] # (Auto) 0.6 Eos # (Auto) 0.2 Baso # (Auto) 0.0 Abs Immat Gran (auto) 0.02 Absolute Neuts (auto) 3.6 Absolute Nucleated RBC 0.000 Nucleated RBC % (auto) 0.0 Anion Gap 9 L Estim Creat Clear Calc 74.6 Estimated GFR > 60 Random Glucose 97 Calcium 8.3 L D Assessment and Plan (1) Prostate nodule: Status: Acute (2) Acute retention of urine: Status: Acute Plan Pt is a 68-year-old male with a PMH significant for CAD, cardiac arrest in 2020 complicated by anoxic brain injury with resulting major neurocognitive disorder, and behavioral disturbances?who presents to the ED from Dr. Hernandez's office for admission into the hospital for MRI and seizure workup. Pt will be admitted to the hospital under observation for treatment and further evaluation of ataxia and physical deconditioning concerning for worsening neurocognitive disorder. Acute urine retention Lunsford placed Urology consult to Est of care Ataxia Patient with history of seizure disorder/major neurocognitive disorder secondary to anoxic brain injury from cardiac arrest Significant physical decline over past month, unable to ambulate or assist with ADLs x2 weeks No clear infection PT rec STR neuro input appreciated; no changes in his medications, rule out infection, PT MRI negative, EEG with no reported abnormalities to suggest seizures. Abnormal CT abd/pelvis CT showed 1.1 cm probable prostate nodule vs bladder wall lesion PSA 0.77 outpt f/u Behavioral disturbances Continue lamotrigine, quetiapine, and sertraline CAD/HLD Continue aspirin and statin HTN Continue losartan and metoprolol dvt pptx - lovenox Patient waiting safe discharge planning as PT rec STR. Quality Stroke Does the patient have a stroke diagnosis?: No VTE Prior VTE?: No VTE Risk Level:: Medical - moderate - high VTE Device Contraindication: Treatment Not Indicated VTE Drug Contraindication: N/A - Med Ordered
[2024-06-30 15:29] VITALS: BP 101/62; PULSE 62; RESP 14; TEMP 36.4; O2SAT 98
[2024-06-30] MEDS: Lactulose 20 GM/30 ML SOLUTION PO (16:41)
--- NOTE | 2024-06-30 18:59 | PC.NURSE ---
constipated for more than 5 days , medicated with laxatives , had large hard and loose BM, pt was screaming and pulling on Gordon cath , yelling cut this off because hurting my penise . Pt was holding the cath tube strongly and to prevent the injury, baloon was diflated and gordon cath was removed . Pt has relive from the pain .
[2024-06-30] MEDS: Acetaminophen 325 MG TABLET 650 MG PO (19:05)
[2024-06-30] MEDS: Atorvastatin Calcium 80 MG TABLET PO (19:45)
[2024-06-30] MEDS: Melatonin 3 MG TABLET 6 MG PO (19:45)
[2024-06-30] MEDS: traZODone HCL 50 MG TABLET PO (19:45)
--- NOTE | 2024-06-30 19:47 | PC.NURSE ---
Dr Linton was notified about Lunsford cath removal
[2024-06-30 20:00] VITALS: BP 146/71; PULSE 69; RESP 18; TEMP 37; O2SAT 98
[2024-07-01] VITALS: BP 143/66; PULSE 68; RESP 20; TEMP 36.6; O2SAT 94
[2024-07-01] MEDS: LORazepam 2 MG/ML VIAL 1 MG IVPUSH ×2 (03:49→20:46)
[2024-07-01 07:38] VITALS: BP 110/83; PULSE 84
[2024-07-01] MEDS: QUEtiapine Fumarate 25 MG TABLET PO ×2 (07:39→19:46)
[2024-07-01] MEDS: Metoprolol Succinate ER 25 MG TAB.ER.24H PO (07:39)
[2024-07-01] MEDS: lamoTRIgine 25 MG TABLET 150 MG PO ×2 (07:40→19:44)
[2024-07-01] MEDS: Tamsulosin HCL 0.4 MG CAPSULE PO (07:40)
[2024-07-01] MEDS: Sertraline HCL 50 MG TABLET PO (07:40)
[2024-07-01] MEDS: Aspirin 81 MG TAB.CHEW PO (07:40)
[2024-07-01] MEDS: QUEtiapine Fumarate 100 MG TABLET PO ×2 (07:40→19:46)
[2024-07-01] MEDS: 0.9 % Sodium Chloride Flush 3 ML SYRINGE IVFLUSH (07:45)
[2024-07-01 08:00] VITALS: PULSE 84; TEMP 36.4; O2SAT 97
[2024-07-01] MEDS: polyethylene glycoL 3350 17 GM POWD.PACK PO (09:45)
[2024-07-01 12:00] VITALS: BP 105/63; PULSE 63; RESP 19; TEMP 36.6; O2SAT 95
--- NOTE | 2024-07-01 13:20 | P.CNUR_ITS ---
History of Present Illness Consult details Consult date: 07/01/24 Narrative: 68-year-old male with a PMH significant for CAD, cardiac arrest in 2020 complicated by anoxic brain injury with resulting major neurocognitive disorder, and behavioral disturbances. Patient is alert and oriented to self only, and thus incapable of providing accurate HPI. Urology consult for Urinary retention. Currently Luns[place] is out because the patient was pulling on the catheter. He has been incontinent of urine. Currently on tamsulosin. CTAP: KIDNEYS AND URETERS: The kidneys are normal in size, shape, and attenuation. No hydronephrosis, hydroureter, or calculi seen. No perinephric stranding. 1.1 cm probable prostate nodule is seen, projecting into the bladder base. Review of Systems 2 Review of Systems: Yes Unobtainable due to mental condition [facility] Past Medical History Medical History (Updated 07/09/24 @ 17:22 by Leon Godinez, [facility] [place]-) BPH loc w urin obs/LUTS Neurogenic bladder Prostate nodule Ataxia Anoxic brain injury Epilepsy Compulsive behavior disorder Cardiac arrest Surgical History Surgical History No pertinent past surgical history Social History Social History Household Members: Unknown / Unable to assess Housing: Unknown / Unable to assess Alcohol intake: never Comment: constant conpanion at bedside Patient Tobacco Use Status: Former Tobacco user e-Cigarette/Vaping Use: Never Used Substance Use Type: Marijuana service: No Cognitive needs: No Hearing needs: No Vision needs: No Meds Allergies Allergy/AdvReac Type Severity Reaction Status Date / Time lisinopril Allergy Mild Unknown Verified 06/27/24 15:31 Active Medications: Current Medications Acetaminophen (Acetaminophen 325 Mg Tablet) 650 mg PO Q6H PRN PRN Reason: Pain, Mild 1-3,fever,headache Last Admin: 06/30/24 19:05 Dose: 650 mg Aspirin (Aspirin 81 Mg Tab.Chew) 81 mg PO DAILY [facility] Last Admin: 07/01/24 07:40 Dose: 81 mg Atorvastatin Calcium (Atorvastatin Calcium 80 Mg Tablet) 80 mg PO BEDTIME [facility] Last Admin: 06/30/24 19:45 Dose: 80 mg Benzonatate (Benzonatate 100 Mg Capsule) 100 mg PO TID PRN PRN Reason: Cough Calcium Carbonate (Calcium Carbonate 750 Mg Tab.Chew) 750 mg PO Q4H PRN PRN Reason: Heartburn Enoxaparin Sodium (Enoxaparin Sodium 40 Mg/0.4 Ml Syringe) 40 mg SUBCUT Q24H [facility] Last Admin: 06/30/24 20:02 Dose: Not Given Lamotrigine (Lamotrigine 25 Mg Tablet) 150 mg PO BID [facility] Last Admin: 07/01/24 07:40 Dose: 150 mg Losartan Potassium (Losartan Potassium 25 Mg Tablet) 25 mg PO DAILY [facility]; Protocol Last Admin: 06/29/24 08:24 Dose: 25 mg Magnesium Hydroxide (Milk Of Magnesia 30 Ml Oral.Susp) 30 ml PO DAILY PRN PRN Reason: Constipation Last Admin: 06/30/24 08:01 Dose: 30 ml Melatonin (Melatonin 3 Mg Tablet) 6 mg PO BEDTIME [facility] Last Admin: 06/30/24 19:45 Dose: 6 mg Metoprolol Succinate (Metoprolol Succinate Er 25 Mg Tab.Er.24h) 25 mg PO DAILY [facility]; Protocol Last Admin: 07/01/24 07:39 Dose: 25 mg Ondansetron HCl (Ondansetron Hcl 4 Mg/2 Ml Vial) 4 mg IVPUSH Q8H PRN PRN Reason: Nausea and Vomiting Polyethylene Glycol (Polyethylene Glycol 3350 17 Gm Powd.Pack) 17 gm PO DAILY [facility] Last Admin: 07/01/24 09:45 Dose: 17 gm Quetiapine Fumarate (Quetiapine Fumarate 25 Mg Tablet) 25 mg PO BID [facility] Last Admin: 07/01/24 07:39 Dose: 25 mg Quetiapine Fumarate (Quetiapine Fumarate 100 Mg Tablet) 100 mg PO BID [facility] Last Admin: 07/01/24 07:40 Dose: 100 mg Senna (Sennosides 8.6 Mg Tablet) 8.6 mg PO BEDTIME [facility] Last Admin: 06/30/24 20:02 Dose: Not Given Sertraline HCl (Sertraline Hcl 50 Mg Tablet) 50 mg PO DAILY [facility] Last Admin: 07/01/24 07:40 Dose: 50 mg Sodium Chloride (0.9 % Sodium Chloride Flush 3 Ml Syringe) 3 ml IVFLUSH QSHIFT [facility] Last Admin: 07/01/24 07:45 Dose: 3 ml Tamsulosin HCl (Tamsulosin Hcl 0.4 Mg Capsule) 0.4 mg PO DAILY [facility] Last Admin: 07/01/24 07:40 Dose: 0.4 mg Trazodone HCl (Trazodone Hcl 50 Mg Tablet) 50 mg PO BEDTIME [facility] Last Admin: 06/30/24 19:45 Dose: 50 mg Home Medications ?Medication ?Instructions ?Recorded ?Confirmed ?Last Taken ?Type lamotrigine 150 mg tablet 150 mg PO BID 08/21/23 06/27/24 08/31/23 09:30 History quetiapine 100 mg tablet 100 mg PO BID 08/21/23 06/27/24 08/31/23 21:30 History sertraline 50 mg tablet 50 mg PO DAILY 08/21/23 06/27/24 08/31/23 09:30 History trazodone 50 mg tablet 50 mg PO BEDTIME 08/21/23 06/27/24 08/31/23 21:30 History aspirin 81 mg chewable tablet 1 tab PO DAILY 09/01/23 06/27/24 08/31/23 09:30 History atorvastatin 80 mg tablet 80 mg PO BEDTIME 09/01/23 06/27/24 08/31/23 21:30 History metoprolol succinate 25 mg 25 mg PO DAILY 09/01/23 06/27/24 08/31/23 21:30 History tablet,extended release 24 hr melatonin 10 mg tablet 10 mg PO BEDTIME 06/27/24 06/27/24 Unknown History quetiapine 25 mg tablet 25 mg PO BID 06/27/24 06/27/24 Unknown History Physical Exam 2 Vital Signs: Vital Signs: Last Vital Signs Temp 97.8 F 07/01/24 12:00 Pulse 63 07/01/24 12:00 Resp 19 07/01/24 12:00 BP 105/63 07/01/24 12:00 Pulse Ox 95 07/01/24 12:00 O2 Del Method Room Air 07/01/24 12:00 BMI result Body Mass Index 20.9 Results Labs 06/30/24 05:32 06/30/24 05:32 Labs: Urine 06/27/24 Range/Units 18:45 Urine Color Yellow Urine Appearance Clear Urine pH 6.0 (5.0-9.0) Ur Specific [place] >= 1.030 H (1.005-1.025) Urine Protein 30 (1+) H (Neg-Trace) mg/dL Urine Glucose (UA) Negative (Negative) mg/dL Imaging Additional studies: Date of Service: 06/27/24 CT ABDOMEN AND PELVIS WITH CONTRAST CLINICAL INFORMATION: Constipation of one week's duration. COMPARISON: None available. TECHNIQUE: Multidetector volumetric images were obtained from the superior aspect of the liver through the pubic symphysis following administration 85 mL of Omnipaque 350 intravenous contrast. Sagittal and coronal reformatted images were obtained on the technologist's workstation. Oral contrast: No This CT examination was performed using dose optimization techniques as appropriate, variously including the following: *Automated exposure control *Adjustment of mA and/or kV according to patient size (this includes techniques or standardized protocols for targeted exams where dose is matched to indication/reason for exam; i.e. extremities or head) *Use of iterative reconstruction technique DLP: 784 mGy-cm FINDINGS: LUNG BASES: There is bibasilar dependent hypoaeration. There is very mild left gynecomastia. LIVER, GALLBLADDER, AND BILIARY TREE: The liver is normal in size, shape, and attenuation. No focal hepatic lesion or biliary ductal dilatation is present. The gallbladder is unremarkable with no evidence of radiopaque gallstones, gallbladder wall thickening, or obvious pericholecystic inflammatory changes. PANCREAS: Unremarkable. SPLEEN: Unremarkable. ADRENAL GLANDS: Unremarkable. KIDNEYS AND URETERS: The kidneys are normal in size, shape, and attenuation. No hydronephrosis, hydroureter, or calculi seen. No perinephric stranding. BLADDER: There is a probable 1.1 cm prostate nodule projecting into the bladder base, versus less likely a bladder wall lesion (7:58). GASTROINTESTINAL TRACT: There is mild diverticulosis, without acute diverticulitis. No bowel obstruction, free intraperitoneal air or abscess is seen. There is no focal bowel wall thickening. The vermiform appendix appears normal. No diverticulosis or diverticulitis is seen. ABDOMINAL WALL: No significant hernia is appreciated. LYMPH NODES: Normal. VASCULAR: There is mild aortoiliac atherosclerotic calcification. No abdominal aortic aneurysm or dissection is seen. PELVIC VISCERA: Towards the superior margin of the prostate gland, a 1.1 cm nodule is questioned. Less likely, this could represent a bladder nodule. OSSEOUS STRUCTURES: At T9-10, and is marked disc space narrowing. At L3-4, there is vacuum disc phenomenon. There is multi-level lower thoracic and lumbar endplate arthropathy and Schmorl's node formation. No acute or aggressive osseous finding is noted. IMPRESSION: 1. There is mild diverticulosis, without acute diverticulitis. No obstruction, free intraperitoneal air or abscess is seen. There is no focal bowel wall thickening. 2. A 1.1 cm probable prostate nodule is seen, projecting into the bladder base. Less likely, this could represent a bladder wall lesion. Recommend correlation with the patient's serum PSA level. As well, consider further evaluation with prostate/bladder ultrasound. 3. There is thoracolumbar degenerative disc disease. Assessment and Plan (1) Acute retention of urine: Status: Resolved (2) Neurogenic bladder: Status: Inactive (3) BPH loc w urin obs/LUTS: Status: Inactive Plan Urinary retention. Currently Luns[place] is out because the patient was pulling on the catheter. He has been incontinent of urine. Currently on tamsulosin. Recommend to also start finasteride 5 mg daily and bethanechol 50 mg twice a day. outpatient fu. Procedures Date of Service Date of Service: 07/12/24
--- NOTE | 2024-07-01 13:34 | HO.PM.IMPN ---
Subjective Subjective Date of Service: 07/01/24 Interval History: seen and examined has no complaints Jonn was removed as he kept complaining of it plesantly confused and tolerating diet Review of Systems Review of Systems: Yes all other systems are reviewed and are negative Physical Exam Vital Signs: Vital Signs: Last Vital Signs Temp 97.8 F 07/01/24 12:00 Pulse 63 07/01/24 12:00 Resp 19 07/01/24 12:00 BP 105/63 07/01/24 12:00 Pulse Ox 95 07/01/24 12:00 O2 Del Method Room Air 07/01/24 12:00 BMI result Body Mass Index 20.9 Const: Other: General - no acute distress, appears comfortable Cardiovascular - regular rate and rhythm, S1-S2 Lungs - normal respiratory effort, clear to auscultation bilaterally, no wheezing Abdomen - soft, nontender, no rebound or guarding Extremities - no edema bilaterally skin, right elbow bump and mild erythema Neuro - awake and alert; oriented to self ; knows where he lives; no focal deficit Objective Data Active Medications Acetaminophen (Acetaminophen 325 Mg Tablet) 650 mg PO Q6H PRN PRN Reason: Pain, Mild 1-3,fever,headache Last Admin: 06/30/24 19:05 Dose: 650 mg Documented By: JANIE Aspirin (Aspirin 81 Mg Tab.Chew) 81 mg PO DAILY [facility] Last Admin: 07/01/24 07:40 Dose: 81 mg Documented By: LINDA Atorvastatin Calcium (Atorvastatin Calcium 80 Mg Tablet) 80 mg PO BEDTIME [facility] Last Admin: 06/30/24 19:45 Dose: 80 mg Documented By: DARYL Benzonatate (Benzonatate 100 Mg Capsule) 100 mg PO TID PRN PRN Reason: Cough Calcium Carbonate (Calcium Carbonate 750 Mg Tab.Chew) 750 mg PO Q4H PRN PRN Reason: Heartburn Enoxaparin Sodium (Enoxaparin Sodium 40 Mg/0.4 Ml Syringe) 40 mg SUBCUT Q24H [facility] Last Admin: 06/30/24 20:02 Dose: Not Given Documented By: DARYL Non-Admin Reason: Patient Refused Lamotrigine (Lamotrigine 25 Mg Tablet) 150 mg PO BID [facility] Last Admin: 07/01/24 07:40 Dose: 150 mg Documented By: LINDA Losartan Potassium (Losartan Potassium 25 Mg Tablet) 25 mg PO DAILY [facility]; Protocol Last Admin: 06/29/24 08:24 Dose: 25 mg Documented By: JANIE Magnesium Hydroxide (Milk Of Magnesia 30 Ml Oral.Susp) 30 ml PO DAILY PRN PRN Reason: Constipation Last Admin: 06/30/24 08:01 Dose: 30 ml Documented By: JANIE Melatonin (Melatonin 3 Mg Tablet) 6 mg PO BEDTIME [facility] Last Admin: 06/30/24 19:45 Dose: 6 mg Documented By: DARYL Metoprolol Succinate (Metoprolol Succinate Er 25 Mg Tab.Er.24h) 25 mg PO DAILY [facility]; Protocol Last Admin: 07/01/24 07:39 Dose: 25 mg Documented By: LINDA Ondansetron HCl (Ondansetron Hcl 4 Mg/2 Ml Vial) 4 mg IVPUSH Q8H PRN PRN Reason: Nausea and Vomiting Polyethylene Glycol (Polyethylene Glycol 3350 17 Gm Powd.Pack) 17 gm PO DAILY [facility] Last Admin: 07/01/24 09:45 Dose: 17 gm Documented By: BELINDA Quetiapine Fumarate (Quetiapine Fumarate 25 Mg Tablet) 25 mg PO BID [facility] Last Admin: 07/01/24 07:39 Dose: 25 mg Documented By: LINDA Quetiapine Fumarate (Quetiapine Fumarate 100 Mg Tablet) 100 mg PO BID [facility] Last Admin: 07/01/24 07:40 Dose: 100 mg Documented By: LINDA Senna (Sennosides 8.6 Mg Tablet) 8.6 mg PO BEDTIME [facility] Last Admin: 06/30/24 20:02 Dose: Not Given Documented By: DARYL Non-Admin Reason: Patient Refused Sertraline HCl (Sertraline Hcl 50 Mg Tablet) 50 mg PO DAILY [facility] Last Admin: 07/01/24 07:40 Dose: 50 mg Documented By: LINDA Sodium Chloride (0.9 % Sodium Chloride Flush 3 Ml Syringe) 3 ml IVFLUSH QSHIFT [facility] Last Admin: 07/01/24 07:45 Dose: 3 ml Documented By: LINDA Tamsulosin HCl (Tamsulosin Hcl 0.4 Mg Capsule) 0.4 mg PO DAILY [facility] Last Admin: 07/01/24 07:40 Dose: 0.4 mg Documented By: LINDA Trazodone HCl (Trazodone Hcl 50 Mg Tablet) 50 mg PO BEDTIME [facility] Last Admin: 06/30/24 19:45 Dose: 50 mg Documented By: DARYL Labs 06/30/24 05:32 06/30/24 05:32 Assessment and Plan (1) BPH loc w urin obs/LUTS: Status: Acute (2) Neurogenic bladder: Status: Acute (3) Acute retention of urine: Status: Acute Plan Pt is a 68-year-old male with a PMH significant for CAD, cardiac arrest in 2019 complicated by anoxic brain injury with resulting major neurocognitive disorder, and behavioral disturbances?who presents to the ED from Dr. Hernandez's office for admission into the hospital for MRI and seizure workup. Pt will be admitted to the hospital under observation for treatment and further evaluation of ataxia and physical deconditioning concerning for worsening neurocognitive disorder. Acute urine retention Luns[place] removed overnight as he kept complaining about it Urology consult bladder scan Tamsulosin and Finasteride Ataxia Patient with history of seizure disorder/major neurocognitive disorder secondary to anoxic brain injury from cardiac arrest Significant physical decline over past month, unable to ambulate or assist with ADLs x2 weeks No clear infection PT rec STR neuro input appreciated; no changes in his medications, rule out infection, PT MRI negative, EEG with no reported abnormalities to suggest seizures. Abnormal CT abd/pelvis CT showed 1.1 cm probable prostate nodule vs bladder wall lesion PSA 0.77 outpt f/u Behavioral disturbances Continue lamotrigine, quetiapine, and sertraline CAD/HLD Continue aspirin and statin HTN Continue losartan and metoprolol dvt pptx - lovenox Patient waiting safe discharge planning as PT rec STR. Quality Stroke Does the patient have a stroke diagnosis?: No VTE Prior VTE?: No VTE Risk Level:: Medical - moderate - high VTE Device Contraindication: Treatment Not Indicated VTE Drug Contraindication: N/A - Med Ordered
[2024-07-01] MEDS: Finasteride 5 MG TABLET PO (14:31)
[2024-07-01 16:00] VITALS: BP 112/65; PULSE 63; RESP 19; TEMP 36.7; O2SAT 98
[2024-07-01] MEDS: Acetaminophen 325 MG TABLET 650 MG PO (18:19)
[2024-07-01] MEDS: traZODone HCL 50 MG TABLET PO (19:46)
[2024-07-01] MEDS: Melatonin 3 MG TABLET 6 MG PO (19:47)
[2024-07-01] MEDS: Atorvastatin Calcium 80 MG TABLET PO (19:48)
[2024-07-01] MEDS: Enoxaparin Sodium 40 MG/0.4 ML SYRINGE SUBCUT (19:49)
[2024-07-01 20:00] VITALS: BP 140/76; PULSE 71; RESP 18; TEMP 36.8; O2SAT 95
[2024-07-02] VITALS: BP 142/71; PULSE 95; RESP 17; TEMP 36.8; O2SAT 97
[2024-07-02 03:50] VITALS: BP 143/77; PULSE 66; RESP 16; TEMP 36.8; O2SAT 98
[2024-07-02] MEDS: Acetaminophen 325 MG TABLET 650 MG PO (05:09)
[2024-07-02 07:37] VITALS: BP 139/75; PULSE 69; RESP 17; TEMP 37.1; O2SAT 95
--- NOTE | 2024-07-02 09:19 | PM.DS ---
DS: Providers Provider Date of Service: 07/02/24 Date of admission: 06/29/24 14:09 Date of discharge: 07/02/24 Primary care physician: ROSIE Rod Consults: 06/27/24 21:00 Consult to Neurology Routine Consulting Provider: [facility] Reason for consultation: Ataxia, ?worsening seizure activity 06/30/24 05:53 Consult to Wound Care Routine Reason for consultation: abrasion upper left back 06/30/24 07:47 Consult to Urology Routine Consulting Provider: [facility] [place] [facility] Reason for consultation: 1.1cm prostate nodule vs bladder lesion, Urine retention, Est of care. 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 Hernandez's office for admission into the hospital for MRI and seizure workup. Patient is alert and oriented to self only, and thus incapable of providing accurate HPI which is instead obtained by daughter at bedside. Daughter notes patient has had a significant decline in the past month. Has a history of seizure disorder, and aggressive and agitated behavior, but overall well-controlled on current regimen. At baseline patient is able to walk, dress, and toilet himself independently, though in the last month has been incontinent of both bladder and bowel function. Initially started out his diarrhea, though the patient has not clearly had bowel movement in the past 2 weeks. Patient has also been noted to have ?weird? moments breathing and will also stop and stare out into the distance, similar to patient is petite mal seizures. In the past 2 weeks patient has physically declined to where he can no longer walk independently and has been crawling on hands and knees to the bathroom. Daughter notes had similar, though less severe, prior episode when he was had a UTI. Patient was initially brought to the hospital last night for infectious workup that was negative, including negative CT of head. Patient was discharged to home and presented to Dr. Hernandez's Neurology office this morning where he was then sent to the ED for further evaluation. Patient himself has no acute medical complaints. Daughter reports there has been no noted vomiting, recent diarrhea, cough, or URI type symptoms. In the ED pt's vitals stable and WNL. Labs are grossly unremarkable and baseline for patient. No leukocytosis. Stable H&H. No significant electrolyte abnormality. Renal and hepatic function WNL. Ammonia yesterday WNL. CXR showed UA negative for UTI both yesterday and today. Tox screen positive only for marijuana. Tested negative for flu, RSV, COVID. Brain MRI negative for acute intracranial abnormality exam of though showed global cerebral atrophy and chronic microangiopathy. CT of abdomen/pelvis without acute abnormality. Did show probable prostate nodule vs bladder wall lesion. EKG demonstrated normal sinus rhythm with RBBB and left anterior fascicular block. Pt was treated with home night meds of lorazepam, lamotrigine, melatonin, quetiapine, and trazodone. Pt will be admitted to the hospital under observation for treatment and further evaluation of ataxia and physical deconditioning concerning for worsening neurocognitive disorder. Hospital course # Acute urine retention Noted to have bladder scan >600cc. Gordon placed but he was pulling it and complaining of pain. removed as Urology consulted and recommended medical management for now with Tamsulosin and Finasteride He will need monitoring with bladder scan at facility if Gordon needs to be placed again. Bethanechol 50 mg bid suggested by Urology but given his seizure history will hold on that for now as it might lower seizure threshold. # PHysical deconditioning and Ataxia Significant physical decline over past month, unable to ambulate or assist with ADLs x2 weeks. No clear infection. Evaluated by PT who recommended [facility] neuro input appreciated; no changes in his medications. MRI negative, EEG with no reported abnormalities to suggest seizures. # Abnormal CT abd/pelvis showing CT showed 1.1 cm probable prostate nodule vs bladder wall lesion with PSA 0.77. Four outpatient f/u with [facility] [place] urology. # Behavioral disturbances and reported hx of seizures. Evaluated by neurologist who recommended to continue lamotrigine, quetiapine, and sertraline. Discharge plan Start Finasteride and Tamsulosin Continue home medications increase physical activity as tolerated monitor with bladder scans if gordon needs to be placed again Follow with [facility] [place] [place] Urology as outpatient The patient will likely need less than 30 days of SNF stay. Time Attestation Discharge Coordination Time (in mins): 43 Quality: Safe Use of Opioids Does Pt have an Active Cancer Diagnosis on the Problem List?: No Quality: Stroke Does the patient have a stroke diagnosis?: No Physical Exam Vital Signs: Vital Signs: Last Vital Signs Temp 98.7 F 07/02/24 07:37 Pulse 69 07/02/24 07:37 Resp 17 07/02/24 07:37 BP 139/75 07/02/24 07:37 Pulse Ox 95 07/02/24 07:37 O2 Del Method Room Air 07/02/24 07:37 BMI result Body Mass Index 20.9 Const: Other: General - no acute distress, appears comfortable Cardiovascular - regular rate and rhythm, S1-S2 Lungs - normal respiratory effort, clear to auscultation bilaterally, no wheezing Abdomen - soft, nontender, no rebound or guarding Extremities - no edema bilaterally skin, right elbow bump and mild erythema Neuro - awake and alert; oriented to self ; knows where he lives; no focal deficit DS: Data Imaging Chest x-ray: Radiologist's impression: ITS Impressions Brain MRI 06/27/24 17:08 IMPRESSION: Within the limitations of the study, 1. No acute intracranial abnormalities. 2. Global cerebral atrophy and chronic microangiopathy. Electronically signed by: Jann Pickett MD 06/27/2024 07:01 PM EST RP Abdomen/Pelvis CT 06/27/24 18:20 IMPRESSION: 1. There is mild diverticulosis, without acute diverticulitis. No obstruction, free intraperitoneal air or abscess is seen. There is no focal bowel wall thickening. 2. A 1.1 cm probable prostate nodule is seen, projecting into the bladder base. Less likely, this could represent a bladder wall lesion. Recommend correlation with the patient's serum PSA level. As well, consider further evaluation with prostate/bladder ultrasound. 3. There is thoracolumbar degenerative disc disease. Fleischner guidelines were followed. Electronically signed by: Leon Castellanos MD 06/27/2024 08:32 PM EST RP Discharge Plan Discharge Anticipated Discharge Date/Time: 07/02/24 09:11 Patient Disposition: Xfer SNF Discharge Diagnosis: Ataxia Altered mentation Retention of urine Referrals: [facility] [Outside] - 1 Day (SHORT TERM REHAB) Leon Godinez, [facility] [facility] [Primary Care Provider] - 1 Week Discharge Medications: New tamsulosin 0.4 mg Capsule 0.4 mg PO DAILY Qty: 90 0RF finasteride 5 mg Tablet 5 mg PO DAILY Qty: 90 0RF Continued losartan 25 mg tablet 25 mg PO DAILY 90 Days Qty: 90 0RF atorvastatin 80 mg tablet 80 mg PO BEDTIME aspirin 81 mg tablet,chewable 1 tab PO DAILY metoprolol succinate 25 mg tablet extended release 24 hr 25 mg PO DAILY quetiapine 25 mg tablet 25 mg PO BID melatonin 10 mg Tablet 10 mg PO BEDTIME trazodone 50 mg tablet 50 mg PO BEDTIME lamotrigine 150 mg tablet 150 mg PO BID quetiapine 100 mg tablet 100 mg PO BID sertraline 50 mg tablet 50 mg PO DAILY Discharge Orders: Discharge Order (Routine); Ordered 07/02/24 Ordered By: Wan Ag Diet: Advance to usual diet Activity on Discharge: As tolerated Stand Alone Forms: Patient Portal Discharge page Print Language: Turkmen Care Plan Goals: Start Finasteride and Tamsulosin Continue home medications increase physical activity as tolerated monitor with bladder scans if gordon needs to be placed again Follow with [facility] [place] [place] Urology as outpatient Health Concerns: Urine retention Plan of Treatment: Finasterid, Tamsulosin Assessment: as above
[2024-07-02] MEDS: lamoTRIgine 25 MG TABLET 150 MG PO (10:16)
[2024-07-02] MEDS: Sertraline HCL 50 MG TABLET PO (10:16)
[2024-07-02] MEDS: Aspirin 81 MG TAB.CHEW PO (10:17)
[2024-07-02] MEDS: polyethylene glycoL 3350 17 GM POWD.PACK PO (10:17)
[2024-07-02] MEDS: QUEtiapine Fumarate 100 MG TABLET PO (10:17)
[2024-07-02] MEDS: Finasteride 5 MG TABLET PO (10:17)
[2024-07-02] MEDS: 0.9 % Sodium Chloride Flush 3 ML SYRINGE IVFLUSH (10:17)
[2024-07-02] MEDS: QUEtiapine Fumarate 25 MG TABLET PO (10:17)
[2024-07-02] MEDS: Metoprolol Succinate ER 25 MG TAB.ER.24H PO (10:17)
[2024-07-02] MEDS: Tamsulosin HCL 0.4 MG CAPSULE PO (10:17)
--- NOTE | 2024-07-02 11:08 | MHC.CM.PN ---
Addendum entered by Jaclyn Zheng RN 07/02/24 13:41: PT'S /HCP AGREEABLE TO DC PLAN TO [facility] Original Note: PT MEDICALLY CLEARED FOR DC TO [facility] HOWEVER PT'S NOTIFED AND HAD CONCERNS AND REQUESTING TO SPEAK TO HOSPITALIST WHO HAS BEEN NOTIFIED VIA TIGER, ALSO LESS THAN 30 DAY REQUESTED D/T BRAIN INJURY/PSYCH MEDS, [facility] SET TO TRANSPORT AT 2:30PM HOWEVER MAY CHANGE.
[2024-07-02 11:25] VITALS: BP 110/67; PULSE 68; RESP 17; TEMP 36.8; O2SAT 96
== END 2024-07-02 15:07 | disposition intermediate care facility (04) | DRG 884 ==
LOC: HO.ED 20:10 → HO.EDOVER 21:06 → HO.IMC 21:29
PROVIDERS: Admitting Provider Student in an Organized Health Care Education/Training Program; Emergency Provider Emergency Medicine; PCP Nurse Practitioner Family; Visit Provider Student in an Organized Health Care Education/Training Program
DX: F03.918 Unspecified dementia, unspecified severity, with other behavioral disturbance (principal); G93.1 Anoxic brain damage, not elsewhere classified; R27.0 Ataxia, unspecified; N40.1 Benign prostatic hyperplasia with lower urinary tract symptoms; R33.8 Other retention of urine; I25.10 Atherosclerotic heart disease of native coronary artery without angina pectoris; N31.9 Neuromuscular dysfunction of bladder, unspecified; E78.5 Hyperlipidemia, unspecified; R93.89 Abnormal findings on diagnostic imaging of other specified body structures; I10 Essential (primary) hypertension; G40.909 Epilepsy, unspecified, not intractable, without status epilepticus; Z79.82 Long term (current) use of aspirin; Z20.822 Contact with and (suspected) exposure to COVID-19; Z86.74 Personal history of sudden cardiac arrest; Z87.891 Personal history of nicotine dependence; Z79.899 Other long term (current) drug therapy
CPT/HCPCS: 0241U; 36415; 70450; 70551; 74177; 80048; 80053; 80076; 80307; 81001; 81003; 82140; 83690; 83735; 84153; 85025; 85610; 85652; 86140; 87086; 87088; 93005; 95816; 97112; 97116; 97162; 97166; 97530; 99222; 99284; 99285; C1758; J1650; J2060; Q9967

== ENCOUNTER → 2024-06-27 15:26 | Outpatient (BNV) | payer MEDICARE, SELFPAY | PROVIDERS: Admitting Provider Student in an Organized Health Care Education/Training Program; Emergency Provider Emergency Medicine; PCP Nurse Practitioner Family; Visit Provider Internal Medicine Cardiovascular Disease | DX: R94.31 Abnormal electrocardiogram [ECG] [EKG] (principal) | CPT/HCPCS: 93010 ==

== ENCOUNTER → 2024-06-27 20:55 | Outpatient (BNV) | payer MEDICARE, SELFPAY | PROVIDERS: Admitting Provider Student in an Organized Health Care Education/Training Program; Emergency Provider Emergency Medicine; PCP Nurse Practitioner Family; Visit Provider Psychiatry & Neurology Neurology | DX: R41.82 Altered mental status, unspecified (principal) | CPT/HCPCS: 99222 ==

== ENCOUNTER → 2024-06-27 20:55 | Outpatient (BNV) | payer MEDICARE, SELFPAY | PROVIDERS: Admitting Provider Student in an Organized Health Care Education/Training Program; Emergency Provider Emergency Medicine; PCP Nurse Practitioner Family; Visit Provider Student in an Organized Health Care Education/Training Program | DX: N40.1 Benign prostatic hyperplasia with lower urinary tract symptoms (principal); N31.9 Neuromuscular dysfunction of bladder, unspecified; R33.8 Other retention of urine | CPT/HCPCS: 99222; 99232; 99499 ==

== ENCOUNTER → 2024-06-29 14:09 | Outpatient (BNV) | payer MEDICARE, SELFPAY | PROVIDERS: Admitting Provider Student in an Organized Health Care Education/Training Program; Emergency Provider Emergency Medicine; PCP Nurse Practitioner Family; Visit Provider Urology | DX: N40.1 Benign prostatic hyperplasia with lower urinary tract symptoms (principal); R33.8 Other retention of urine; N31.9 Neuromuscular dysfunction of bladder, unspecified | CPT/HCPCS: 99222 ==

== ENCOUNTER 2024-08-05 14:45 | Outpatient (REF) | payer MEDICARE, SELFPAY ==
--- NOTE | ~2024-08-05 | XR_ITS ---
EXAMINATION: XR RIBS 3 VIEWS MINIMUM WITH CHEST LEFT HISTORY: S20.212A - Contusion of left front wall of thorax, initial encounter COMPARISON: Comparison is made with the prior examination of the chest dated 06/24/2021. FINDINGS: A single PA view of the chest and 4 views of the left ribs are submitted. The lungs are expanded and clear. There is no pleural effusion, pneumothorax, or pulmonary vascular congestion. The heart is normal in size. The left ribs are intact. No fracture is seen. XR/XR ribs LT min 3V w CXR1V IMPRESSION: No evidence of fracture of the left ribs. Electronically signed by: Musa Franz MD 08/05/2024 03:55 PM EST
--- OUTSIDE RECORDS SUMMARY | 2024-08-05 16:50 | XMS_ITS | Clinical Summary ---
Author Organization [facility] Address [address] [place] [address] Care Team Providers Care Platform Power Technician Name Role Phone Beni Moore MD Primary Care Provider [phone] Allergies Active Allergy Reactions Criticality Noted Date Comments Codeine Nausea And Vomiting 08/12/2014 Lisinopril Other (See Comments) 08/08/2018 Medications Medication Sig Dispensed Refills Start Date End Date Status aspirin 81 MG chewable tablet Chew 1 tablet by mouth daily. 0 03/31/2021 Active atorvastatin (LIPITOR) tablet 80 mg Take 80 mg by mouth. 0 Acti ve bisacodyl (DULCOLAX) 5 MG EC tablet Take 4 tabs by mouth right before beginning bowel prep. Follow instructions given by office for timing. 0 07/16/2021 Active Cholecalciferol 50 MCG (1999 UT) CHEW Chew 50 mcg by mouth. 0 08/06/2021 Active cloNIDine (CATAPRES-TTS) 0.1 MG/24HR PTWK Place 0.1 mg onto the skin. 0 08/04/2020 Active clopidogrel (PLAVIX) 75 MG tablet Take 75 mg by mouth. 0 Acti ve divalproex (DEPAKOTE) 250 MG 24 hr tablet Take 250 mg by mouth every night at bedtime. 0 07/29/2021 Active lamoTRIgine (LaMICtal) 100 MG tablet Take 100 mg by mouth. 0 Act libby losartan (COZAAR) tablet 25 mg Take 1 tablet by mouth daily. 0 08/11/2020 Active Melatonin 10 MG CAPS Take 10 mg by mouth. 0 08/04/2020 Acti ve metoprolol succinate (TOPROL-XL) 24 hr tablet 25 mg Take 1 tablet by mouth daily. 0 08/11/2020 Active QUEtiapine (SEROquel) 50 MG tablet Take 1 tablet by mouth 2 (two) times a day. 0 03/23/2021 Active sertraline (ZOLOFT) 25 MG tablet daily. 0 01/05/2021 Active traZODone (DESYREL) 50 MG tablet Take 1 tablet by mouth every night at bedtime. 0 10/02/2020 Active Active Problems No known active problems Social History Tobacco Use Types Packs/Day Years Used Date Smoking Tobacco: Former Smokeless Tobacco: Never Alcohol Use Standard Drinks/Week Comments Not Currently 0 (1 standard drink = 0.6 oz pur e alcohol) Sex and Gender Information Value Date Recorded Sex Assigned at Not on file Gender Identity Not on file Sexual Orientation Not on file Last Filed Vital Signs Vital Sign Reading Time Taken Comments Blood Pressure 87/57 08/13/2021 9:29 AM EST Pulse 57 08/13/2021 9:29 AM EST Temperature 36.4 ??C (97.6 ??F) 08/13/2021 9:29 AM ES T Respiratory Rate - - Oxygen Saturation 100% 08/13/2021 9:29 AM EST Inhaled Oxygen Concentration - - Weight 67.1 kg (148 lb) 08/13/2021 9:29 AM EST Height 182.9 cm (6') 08/13/2021 9:29 AM EST Body Mass Index 20.07 08/13/2021 9:29 AM EST Plan of Treatment Health Maintenance Due Date Last Done Comments Hepatitis C Screening 1955 Depression Screening 1969 Preventative Health Evaluation 1975 Colon Cancer Screening (Colonoscopy) 2002 Shingrix-Zoster Vaccine (1 o f 2) 2007 Fall Risk Assessment 2022 Pneumococcal Vaccine (1 of 1 - PCV) 2022 COVID-19 Vaccine (3 - 2023-2 5 season) 2024 10/20/2020, 09/29/2020 Influenza Vaccine (#1) 2024 03/22/2021 DTap / Tdap / Td (2 - Td or Tdap) 08/08/2028 08/08/2018 RSV Adult > 60+ Yrs or (1 - 1-dose 75+ series) 2032 Hepatitis B Vaccines Aged Out No long er eligible based on patient's age to complete this topic RSV Ped < 20 months Aged Out No longe r eligible based on patient's age to complete this topic Care Teams Platform Power Technician Relationship Specialty Start Date End Date Beni Moore MD PCP - General Internal Medicine 08/09/21
--- OUTSIDE RECORDS SUMMARY | 2024-08-05 16:50 | XMS_ITS | Clinical Summary ---
Author Organization [facility] [address] [place] [address] [place] [phone] Phone Care Team Providers Care Supervisor Braiding Name Role Phone Ariana Sidhu MD Primary Care Provider [phone] Allergies Active Allergy Reactions Criticality Noted Date Comments Codeine Nausea And Vomiting 08/12/2014 Lisinopril Cough 08/08/2018 Other Reaction(s): Other (See Comments) Medications Medication Sig Dispensed Refills Start Date End Date Status aspirin 81 mg chewable tablet Chew 1 tablet (81 mg total) 1 (one) time each day. 03/31/2021 Active atorvastatin (LIPITOR) 80 mg tablet Take 80 mg by mouth daily. Active cholecalciferol, vitamin D3, 50 mcg (2,000 unit) tablet,chewable Take 50 mcg by mouth daily. 08/06/2021 Active cloNIDine ([id number]-[id number]-6) 0.1 mg/[address] 0.1 mg onto the skin once a week. 08/04/2020 Active lamoTRIgine (LaMICtal) 150 mg tablet Take 1 tablet (150 mg total) by mouth 2 (two) times a day. 03/14/2022 Active losartan (COZAAR) 25 mg tablet Take 1 tablet (25 mg total) by mouth 1 (one) time each day. 08/11/2020 Active melatonin 5 mg tablet Take 1 Tablet by mouth at bedtime. 03/14/2022 Active metoprolol succinate (TOPROL-XL) 25 mg 24 hr tablet Take 1 tablet (25 mg total) by mouth 1 (one) time each day. 08/11/2020 Active QUEtiapine (SEROquel) 25 mg tablet Take 1 Tablet by mouth 2 times daily. Take with 50MG for a total of 75 MG twice daily by mouth. 03/14/2022 Active QUEtiapine (SEROquel) 50 mg tablet Take 1 tablet (50 mg total) by mouth 2 (two) times a day. 03/23/2021 Active sertraline (ZOLOFT) 25 mg tablet Take 1 tablet (25 mg total) by mouth 1 (one) time each day. 01/05/2021 Active traZODone (DESYREL) 50 mg tablet Take 1 Tablet by mouth at bedtime. 10/02/2020 Active Active Problems Problem Noted Date Diagnosed Date Seizure disorder 01/05/2021 Anoxic brain injury 08/11/2020 Overview (06/29/2024): S/p NSTEMI 05/27/20 and cardiac arrest CAD (coronary artery disease) 08/11/2020 Overview (06/29/2024): 05/27/20: Inferior STEMI s/p fibrinolytics, Cardiac Arrest s/p ROSC Leukocytosis 08/11/2020 Overview (06/29/2024): WBC: 11 08/2020 Erectile dysfunction 08/08/2018 HTN (hypertension) 11/03/2016 Hyperlipidemia 11/03/2016 Thrombocytosis 09/02/2015 Overview (06/29/2024): Dr. Solorzano - check CBC twice per year Encounters Date Type Department Care Team Description 07/29/[address] [facility] - Main Lab [address] [place] [address] Matthew Lynn MD Encounter for other general examination 07/23/[address] [facility] - Main Lab [address] [place] [address] Matthew Lynn MD Encounter for other general examination from Last 3 Months Immunizations Name Administration Dates Next Due Influenza Quadravalent, MDCK , 0.5ml, preservative free (Flucelvax) 6mo and older 03/10/2022,03/22/2021 Pneumococcal conjugate 20 va lent (Prevnar 20, PCV 20) 2mo and older 09/08/2022 Td Tetanus diptheria (Tdvax) 7yo and older 04/28 Tdap Tetanus diptheria acell ular pertussis (Boostrix; Adacel) 7yo and older 08/08/2018 Surgical History Surgery Date Site/Laterality Comments OTHER SURGICAL HISTORY 1992 Left PROCEDURE: HISTORICAL ARM SURGERY; COMMENT: Repair after saw injury Medical History Medical History Date Comments History of dental problems DX:Hi story of dental problems Erectile dysfunction 08/08/2018 DX:Erectile dysfunction History of heart attack DX:Histo ry of heart attack Brain injury (CMS/HCC) DX:Brain injury (HCC); COMMENT: Due to delayed response after MD Fluctuation of weight DX:Fluctua tion of weight Decreased appetite DX:Decreased appetite Chronic ischemic heart disease D X:Chronic ischemic heart disease Hyperlipidemia DX:Hyperlipidemi a Essential hypertension DX:Essent ial hypertension Family History Medical History Relation Name Comments Diabetes Maternal Grandmother Abdominal Aortic Anuerysm (AAA) Mother Pancreatic cancer Sister 1 Other: brain tumor Sister 2 Relation Name Status Comments Maternal Grandmother Mother Sister 1 Sister 2 Alive Social History Tobacco Use Types Packs/Day Years Used Date Smoking Tobacco: Former Cigarettes Smokeless Tobacco: Never Alcohol Use Standard Drinks/Week Comments Yes 0 (1 standard drink = 0.6 oz pur e alcohol) Sex and Gender Information Value Date Recorded Sex Assigned at Not on file Gender Identity Not on file Sexual Orientation Not on file Obstetrics History Last Filed Vital Signs Vital Sign Reading Time Taken Comments Blood Pressure 122/76 09/08/2022 2:35 PM EST Pulse 54 09/08/2022 2:35 PM EST Temperature - - Respiratory Rate - - Oxygen Saturation - - Inhaled Oxygen Concentration - - Weight 74 kg (163 lb 3.2 oz) 09/08/2022 2:35 PM EST Height 182.9 cm (6') 03/10/2022 2:20 PM EDT Body Mass Index 22.13 03/10/2022 2:20 PM EDT Plan of Treatment Health Maintenance Due Date Last Done Comments Zoster Vaccines (1 of 2) 2007 RSV Immunization Patients 60 + Years Old (1 - Risk 60-74 years 1-dose series) 2017 Colorectal Cancer Screening: Colonoscopy 06/09/2022 Depression Screening 06/09/2022 Medicare Annual Wellness Visit 06/09/2022 Social Influencers of Health Screening 06/09/2022 Falls Risk Assessment 2022 COVID-19 Vaccine (4 - 2023-2 5 season) 2024 08/23/2021, 10/20/2020, 09/29/2020 Influenza Vaccine (#1) 2024 , 03/22/2021 Hypertension/CHF/CAD Annual BMP Blood Test 07/29/2025 07/29/2024, 07/23/2024, 03/10/2022 Cholesterol Screening (Lipid Panel) 09/09/2027 09/08/2022 DTaP,Tdap,and Td Vaccines (3 - Td or Tdap) 08/08/2028 08/08/2018, 04/28/2012 Hepatitis C Screening Completed 11/03/2016 Pneumococcal Vaccine: 65+ Years Completed 09/08/2022 Abdominal Aortic Aneurysm (AAA) Screen Completed 09/29/2022, 09/29/2022 HIB Vaccines Aged Out No longer eligi ble based on patient's age to complete this topic HPV Vaccines Aged Out No longer eligi ble based on patient's age to complete this topic Hepatitis A Vaccines Aged Out No long er eligible based on patient's age to complete this topic Hepatitis B Vaccines Aged Out No long er eligible based on patient's age to complete this topic IPV Vaccines Aged Out No longer eligi ble based on patient's age to complete this topic MMR Vaccines Aged Out No longer eligi ble based on patient's age to complete this topic Meningococcal ACWY Vaccine Aged Out N o longer eligible based on patient's age to complete this topic RSV Immunization Patients Under 20 months Aged Out No longer eligible b ased on patient's age to complete this topic Varicella Vaccines Aged Out No longer eligible based on patient's age to complete this topic Procedures Procedure Name Priority Date/Time Associated Diagnosis Comments CBC WITH AUTO DIFFERENTIAL Routine 07/29/2024 5:18 AM EST Encounter for other general examination MAGNESIUM Routine 07/29/2024 5:18 AM EST Encounter for other general examination CBC AND DIFFERENTIAL Routine 07/29/2024 5:18 AM EST Encounter for other general examination COMPREHENSIVE METABOLIC PANEL Routine 07/29/2024 5:18 AM EST Encounter for other general examination THYROID STIMULATING HORMONE Routine 07/23/2024 5:35 AM EST Encounter for other general examination CBC WITH AUTO DIFFERENTIAL Routine 07/23/2024 5:35 AM EST Encounter for other general examination MAGNESIUM Routine 07/23/2024 5:35 AM EST Encounter for other general examination CBC AND DIFFERENTIAL Routine 07/23/2024 5:35 AM EST Encounter for other general examination COMPREHENSIVE METABOLIC PANEL Routine 07/23/2024 5:35 AM EST Encounter for other general examination US ABDOMINAL AORTA REAL TIME SCREEN STUDY AAA Routine 09/29/2022 9:09 AM EDT Encounter for screening for cardiovascular disorders LIPID PANEL Routine 09/08/2022 HEPATITIS C SCREENING Routine 11/03/2016 from Last 3 Months or Most Recently Relevant to Health Maintenance Results * (ABNORMAL) CBC auto differential (07/29/2024 5:18 AM EST) Only the most recent of2 resultswithin the time period is included. WBC 7.2 4.8 - 10.8 K/mcL LAB HEMETOLOGY METHOD 07/29/2024 8:57 AM [facility] RBC 3.40(L) 4.50 - 5.50 M/mcL LAB HEMETOLOGY METHOD 07/29/2024 8:57 AM [facility] Hemoglobin 10.7(L) 13.5 - 17.5 g/dL LAB HEMETOLOGY METHOD 07/29/2024 8:57 AM [facility] LAB Hematocrit 33.0(L) 42.0 - 54.0 % LAB HEMETOLOGY METHOD 07/29/2024 8:57 AM [facility] MCV 98.2(H) 79.0 - 98.0 FL LAB HEMETOLOGY METHOD 07/29/2024 8:57 AM [facility] MCH 31.8 27.0 - 32.0 pcg LAB HEMETOLOGY METHOD 07/29/2024 8:57 AM [facility] MCHC 32.4 32.0 - 37.0 g/dL LAB HEMETOLOGY METHOD 07/29/2024 8:57 AM [facility] RDW 18.1(H) 11.0 - 15.0 % LAB HEMETOLOGY METHOD 07/29/2024 8:57 AM [facility] Platelets 531(H) 130 - 400 K/mcL LAB HEMETOLOGY METHOD 07/29/2024 8:57 AM [facility] MPV 9.7 7.0 - 11.0 FL LAB HEMETOLOGY METHOD 07/29/2024 8:57 AM [facility] NRBC 0.0 <1.0 % LAB HEMETOLOGY METHOD 07/29/2024 8:57 AM [facility] NRBC Absolute 0.00 <0.10 K/mcL LAB HEMETOLOGY METHOD 07/29/2024 8:57 AM [facility] Neutrophils Relative 36.8 % LAB HEMETOLOGY METHOD 07/29/2024 8:57 AM [facility] Lymphocytes Relative 50.5 % LAB HEMETOLOGY METHOD 07/29/2024 8:57 AM [facility] Monocytes Relative 10.2 % LAB HEMETOLOGY METHOD 07/29/2024 8:57 AM [facility] Eosinophils Relative 1.8 % LAB HEMETOLOGY METHOD 07/29/2024 8:57 AM [facility] Basophils Relative 0.4 % LAB HEMETOLOGY METHOD 07/29/2024 8:57 AM [facility] Immature Granulocytes Relative 0.3 % LAB HEMETOLOGY METHOD 07/29/2024 8:57 AM EST [facility] LAB Neutrophils Absolute 2.63 1.50 - 7.00 K/[facility] LAB HEMETOLOGY METHOD 07/29/2024 8:57 AM EST [facility] Lymphocytes Absolute 3.61 1.00 - 5.00 K/mcL LAB HEMETOLOGY METHOD 07/29/2024 8:57 AM EST [facility] Monocytes Absolute 0.73 0.20 - 1.00 K/[facility] LAB HEMETOLOGY METHOD 07/29/2024 8:57 AM EST [facility] Eosinophils Absolute 0.13 0.00 - 0.50 K/[facility] LAB HEMETOLOGY METHOD 07/29/2024 8:57 AM [facility] Basophils Absolute 0.03 0.00 - 0.20 K/mcL LAB HEMETOLOGY METHOD 07/29/2024 8:57 AM EST [facility] Immature Granulocytes Absolute 0.02 0.00 - 0.03 K/[facility] LAB HEMETOLOGY METHOD 07/29/2024 8:57 AM [facility] Blood Venous blood specimen / Unknown Venipuncture / Unknown 07/29/2024 5:18 AM EST 07/29/2024 7:24 AM EST Matthew Lynn MD LAB BLOOD ORDERABLES [facility] [address] [place] [address], * Magnesium (07/29/2024 5:18 AM EST) Only the most recent of2 resultswithin the time period is included. Magnesium 2.2 1.9 - 2.6 mg/dL LAB CHEMISTRY METHOD 07/29/2024 9:23 AM EST [facility] Blood Venous blood specimen / Unknown Venipuncture / Unknown 07/29/2024 5:18 AM EST 07/29/2024 7:24 AM EST Matthew Lynn MD LAB BLOOD ORDERABLES [facility] [address] [place] [address], * Comprehensive metabolic panel (07/29/2024 5:18 AM EST) Only the most recent of2 resultswithin the time period is included. Pathologist [facility] Sodium 137 133 - 145 mmol/L LAB CHEMISTRY METHOD 07/29/2024 9:23 AM [facility] Potassium 4.8 3.5 - 5.5 mmol/L LAB CHEMISTRY METHOD 07/29/2024 9:23 AM [facility] Chloride 103 96 - 110 mmol/L LAB CHEMISTRY METHOD 07/29/2024 9:23 AM [facility] CO2 30 21 - 32 mmol/L LAB CHEMISTRY METHOD 07/29/2024 9:23 AM [facility] Anion Gap 4 3 - 11 LAB CHEMISTRY METHOD 07/29/2024 9:23 AM [facility] Glucose 84 70 - 100 mg/dL LAB CHEMISTRY METHOD 07/29/2024 9:23 AM [facility] BUN 20 5 - 25 mg/dL LAB CHEMISTRY METHOD 07/29/2024 9:23 AM [facility] Creatinine 1.19 0.70 - 1.30 mg/dL LAB CHEMISTRY METHOD 07/29/2024 9:23 AM [facility] LAB eGFR 67 >=60 mL/min/1. 73m2 LAB CHEMISTRY METHOD 07/29/2024 9:23 AM [facility] LAB Comment:Calculation based on the??Chronic Kidney Disease Epidemiology Collaboration (CKD-EPI) equation refit??without adjustment for race. BUN/Creatinine Ratio 16.8 LAB CHEMISTRY METHOD 07/29/2024 9:23 AM [facility] Calcium 9.0 8.5 - 10.5 mg/dL LAB CHEMISTRY METHOD 07/29/2024 9:23 AM [facility] AST (SGOT) 29 10 - 42 unit/L LAB CHEMISTRY METHOD 07/29/2024 9:23 AM [facility] ALT (SGPT) 42 10 - 60 unit/L LAB CHEMISTRY METHOD 07/29/2024 9:23 AM [facility] Alkaline Phosphatase 109 42 - 121 unit/L LAB CHEMISTRY METHOD 07/29/2024 9:23 AM [facility] Total Protein 6.6 6.0 - 8.0 g/dL LAB CHEMISTRY METHOD 07/29/2024 9:23 AM [facility] Albumin 3.9 3.2 - 5.0 g/dL LAB CHEMISTRY METHOD 07/29/2024 9:23 AM [facility] Total Bilirubin 0.4 0.0 - 1.4 mg/dL LAB CHEMISTRY METHOD 07/29/2024 9:23 AM [facility] Blood Venous blood specimen / Unknown Venipuncture / Unknown 07/29/2024 5:18 AM EST 07/29/2024 7:24 AM EST Matthew Lynn MD LAB BLOOD ORDERABLES Performing Organization Address City/State/[facility] Co de Phone Number [facility] [address] [place] [address], * Thyroid stimulating hormone (07/23/2024 5:35 AM EST) TSH 1.96 0.40 - 4.00 mcIU/mL LAB CHEMISTRY METHOD 07/23/2024 5:28 PM EST [facility] Blood Venous blood specimen / Unknown Venipuncture / Unknown 07/23/2024 5:35 AM EST 07/23/2024 9:54 AM EST Matthew Lynn MD LAB [facility]LOOD [facility]ABLES [facility] [address] [place] [address], * US ABDOMINAL AORTA REAL TIME SCREEN STUDY AAA (09/29/2022 9:09 AM EDT) Anatomical Region Laterality Modality Ultrasound 09/08/2022 2:51 PM EST Narrative 09/29/2022 9:38 AM EDT History: Screening for abdominal aortic aneurysm. Ultrasound of the abdominal aorta: The abdominal aorta is normal in course, caliber and configuration. Proximal aortic AP diameter is 2.2 cm maximum. Mid aortic diameter is 1.8 cm, and distal aortic diameter is 1.5 cm. The common iliac arteries are normal in caliber as well. IMPRESSION: Negative screening examination for abdominal aortic aneurysm. Procedure Note Julian Damon MD - 08/07/2023 History: Screening for abdominal aortic aneurysm. Ultrasound of the abdominal aorta: The abdominal aorta is normal incourse, caliber and configuration. Proximal aortic AP diameter is 2.2 cm maximum. Mid aorticdiameter is 1.8 cm, and distal aortic diameter is 1.5 cm. The common iliac arteries are normalin caliber as well. IMPRESSION: Negative screening examination for abdominal aortic aneurysm. Ariana Sidhu MD IM US PROCEDURES * (ABNORMAL) Lipid panel (09/08/2022) Pathologist [facility] LDL/HDL Ratio 3 0 - 4 Triglycerides 52 0 - 150 mg/dL Cholesterol 90 0 - 200 mg/dL HDL 36(A) 40 mg/dL LDL Cholesterol 44 0 - 100 mg/dL Blood Venous blood specimen / Unknown Historical Provider LAB BLOOD ORDERAB LES * Hepatitis C Screening (11/03/2016) Pathologist [facility] Hepatitis C Screening ABSTRACTED Historical Provider [facility] from Last 3 Months or Most Recently Relevant to Health Maintenance Care Teams Supervisor Braiding Relationship Specialty Start Date End Date Ariana Sidhu MD [address] [place] [address] PCP - General Internal Medicine 04/22/15
--- OUTSIDE RECORDS SUMMARY | 2024-08-05 16:50 | XMS_ITS | Encounter Summary ---
Author Organization [facility] Address [address] [place] [address] Care Team Providers Care Kiln Setter Name Role Phone Ariana Sidhu MD Primary Care Provider [phone] Encounter Details Date Type Department Care Team (Late st Contact Info) Description 07/23/2024 Lab Requisition [facility] - Main Lab [address] [facility] [place] [address] Matthew Lynn MD [address] [place] [id number] Encounter for other general examination Social History Tobacco Use Types Packs/Day Years Used Date Smoking Tobacco: Former Cigarettes Smokeless Tobacco: Never Alcohol Use Standard Drinks/Week Comments Yes 0 (1 standard drink = 0.6 oz pur e alcohol) Sex and Gender Information Value Date Recorded Sex Assigned at Not on file Gender Identity Not on file Sexual Orientation Not on file documented as of this encounter Plan of Treatment Not on file documented as of this encounter Procedures Procedure Name Priority Date/Time Associated Diagnosis Comments CBC WITH AUTO DIFFERENTIAL Routine 07/23/2024 5:35 [...] AM EST Encounter for other general examination documented in this encounter Results * Thyroid stimulating hormone (07/23/2024 5:35 AM EST) Pathologist [facility] TSH 1.96 0.40 - 4.00 mcIU/mL LAB CHEMISTRY METHOD 07/23/2024 5:28 PM EST [facility] Blood Venous blood specimen / Unknown Venipuncture / Unknown 07/23/2024 5:35 AM EST 07/23/2024 9:54 AM EST Matthew Lynn MD LAB BLOOD ORDERABLES [facility] [address] [place] [address], * (ABNORMAL) CBC auto differential (07/23/2024 5:35 AM EST) Pathologist [facility] WBC 7.1 4.8 - 10.8 K/mcL LAB HEMETOLOGY METHOD 07/23/2024 10:44 AM [facility] LAB RBC 3.20(L) 4.50 - 5.50 M/mcL LAB HEMETOLOGY METHOD 07/23/2024 10:44 AM [facility] Hemoglobin 10.3(L) 13.5 - 17.5 g/dL LAB HEMETOLOGY METHOD 07/23/2024 10:44 AM [facility] LAB Hematocrit 31.0(L) 42.0 - 54.0 % LAB HEMETOLOGY METHOD 07/23/2024 10:44 AM [facility] LAB MCV 97.8 79.0 - 98.0 FL LAB HEMETOLOGY METHOD 07/23/2024 10:44 AM [facility] MCH 32.5(H) 27.0 - 32.0 pcg LAB HEMETOLOGY METHOD 07/23/2024 10:44 AM [facility] LAB MCHC 33.2 32.0 - 37.0 g/dL LAB HEMETOLOGY METHOD 07/23/2024 10:44 AM [facility] LAB RDW 17.6(H) 11.0 - 15.0 % LAB HEMETOLOGY METHOD 07/23/2024 10:44 AM [facility] LAB Platelets 554(H) 130 - 400 K/mcL LAB HEMETOLOGY METHOD 07/23/2024 10:44 AM [facility] LAB MPV 10.0 7.0 - 11.0 FL LAB HEMETOLOGY METHOD 07/23/2024 10:44 AM [facility] LAB NRBC 0.0 <1.0 % LAB HEMETOLOGY METHOD 07/23/2024 10:44 AM [facility] LAB NRBC Absolute 0.00 <0.10 K/mcL LAB HEMETOLOGY METHOD 07/23/2024 10:44 AM [facility] Neutrophils Relative 39.3 % LAB HEMETOLOGY METHOD 07/23/2024 10:44 AM [facility] Lymphocytes Relative 44.8 % LAB HEMETOLOGY METHOD 07/23/2024 10:44 AM [facility] Monocytes Relative 13.1 % LAB HEMETOLOGY METHOD 07/23/2024 10:44 AM [facility] Eosinophils Relative 1.6 % LAB HEMETOLOGY METHOD 07/23/2024 10:44 AM [facility] Basophils Relative 0.6 % LAB HEMETOLOGY METHOD 07/23/2024 10:44 AM [facility] Immature Granulocytes Relative 0.6 % LAB HEMETOLOGY METHOD 07/23/2024 10:44 AM [facility] Neutrophils Absolute 2.79 1.50 - 7.00 K/mcL LAB HEMETOLOGY METHOD 07/23/2024 10:44 AM [facility] Lymphocytes Absolute 3.17 1.00 - 5.00 K/mcL LAB HEMETOLOGY METHOD 07/23/2024 10:44 AM EST [facility] Monocytes Absolute 0.93 0.20 - 1.00 K/mcL LAB HEMETOLOGY METHOD 07/23/2024 10:44 AM EST [facility] Eosinophils Absolute 0.11 0.00 - 0.50 K/mcL LAB HEMETOLOGY METHOD 07/23/2024 10:44 AM EST [facility] Basophils Absolute 0.04 0.00 - 0.20 K/[facility] LAB HEMETOLOGY METHOD 07/23/2024 10:44 AM EST [facility] Immature Granulocytes Absolute 0.04(H) 0.00 - 0.03 K/mcL LAB HEMETOLOGY METHOD 07/23/2024 10:44 AM [facility] Blood Venous blood specimen / Unknown Venipuncture / Unknown 07/23/2024 5:35 AM EST 07/23/2024 9:54 AM EST Matthew Lynn MD LAB BLOOD ORDERABLES [facility] [address] [place] [address], * Magnesium (07/23/2024 5:35 AM EST) [facility] Magnesium 2.3 1.9 - 2.6 mg/dL LAB CHEMISTRY METHOD 07/23/2024 11:15 AM EST [facility] Blood Venous blood specimen / Unknown Venipuncture / Unknown 07/23/2024 5:35 AM EST 07/23/2024 9:54 AM EST Matthew Lynn MD LAB BLOOD ORDERABLES [facility] [address] [place] [address], [place] [phone] * (ABNORMAL) Comprehensive metabolic panel (07/23/2024 5:35 AM EST) Pathologist [facility] Sodium 135 133 - 145 mmol/L LAB CHEMISTRY METHOD 07/23/2024 11:15 AM [facility] Potassium 4.5 3.5 - 5.5 mmol/L LAB CHEMISTRY METHOD 07/23/2024 11:15 AM [facility] Chloride 103 96 - 110 mmol/L LAB CHEMISTRY METHOD 07/23/2024 11:15 AM [facility] CO2 25 21 - 32 mmol/L LAB CHEMISTRY METHOD 07/23/2024 11:15 AM [facility] Anion Gap 7 3 - 11 LAB CHEMISTRY METHOD 07/23/2024 11:15 AM [facility] Glucose 81 70 - 100 mg/dL LAB CHEMISTRY METHOD 07/23/2024 11:15 AM [facility] BUN 19 5 - 25 mg/dL LAB CHEMISTRY METHOD 07/23/2024 11:15 AM [facility] Creatinine 1.19 0.70 - 1.30 mg/dL LAB CHEMISTRY METHOD 07/23/2024 11:15 AM [facility] LAB eGFR 67 >=60 mL/min/1. 73m2 LAB CHEMISTRY METHOD 07/23/2024 11:15 AM [facility] LAB Comment:Calculation based on the??Chronic Kidney Disease Epidemiology Collaboration (CKD-EPI) equation refit??without adjustment for race. BUN/Creatinine Ratio 16.0 LAB CHEMISTRY METHOD 07/23/2024 11:15 AM [facility] Calcium 8.8 8.5 - 10.5 mg/dL LAB CHEMISTRY METHOD 07/23/2024 11:15 AM [facility] AST (SGOT) 66(H) 10 - 42 unit/L LAB CHEMISTRY METHOD 07/23/2024 11:15 AM [facility] ALT (SGPT) 74(H) 10 - 60 unit/L LAB CHEMISTRY METHOD 07/23/2024 11:15 AM [facility] Alkaline Phosphatase 120 42 - 121 unit/L LAB CHEMISTRY METHOD 07/23/2024 11:15 AM EST [facility] Total Protein 6.9 6.0 - 8.0 g/dL LAB CHEMISTRY METHOD 07/23/2024 11:15 AM EST [facility] Albumin 3.8 3.2 - 5.0 g/dL LAB CHEMISTRY METHOD 07/23/2024 11:15 AM EST [facility] Total Bilirubin 0.4 0.0 - 1.4 mg/dL LAB CHEMISTRY METHOD 07/23/2024 11:15 AM EST [facility] Blood Venous blood specimen / Unknown Venipuncture / Unknown 07/23/2024 5:35 AM EST 07/23/2024 9:54 AM EST Matthew Lynn MD LAB BLOOD ORDERABLES [facility] [address] [place] [address], documented in this encounter Visit Diagnoses Diagnosis Encounter for other general examination documented in this encounter Care Teams Kiln Setter Relationship Specialty Start Date End Date Ariana Sidhu MD [address] [place] [address] PCP - General Internal Medicine 04/22/15 documented as of this encounter
--- OUTSIDE RECORDS SUMMARY | 2024-08-05 16:50 | XMS_ITS | Clinical Summary ---
Author Organization [facility] Facility Address [address] [address] Care Team Providers Care Oil Program Compliance Specialist Name Role Phone Unavailable Primary Care Provider Unavailabl e Allergies No known active allergies Medications aspirin (ST YOLY) 81 MG EC tablet Take 81 mg by mouth 1 (one) time each day Active atorvastatin (LIPITOR) 80 MG tablet Take 80 mg by mouth 1 (one) time each day Active cloNIDine (CATAPRES) 0.1 MG tablet Take 0.1 mg by mouth 2 (two) times a day Active clopidogrel (PLAVIX) 75 MG tablet Take 75 mg by mouth 1 (one) time each day Active divalproex (DEPAKOTE) 500 MG EC tablet Take 500 mg by mouth 3 (three) times a day Do not crush, chew, or split. Active haloperidol (HALDOL) 5 MG tablet Take 5 mg by mouth 4 (four) times a day Active losartan (COZAAR) 25 MG tablet Take 25 mg by mouth 1 (one) time each day Active Melatonin 10 MG capsule Take 10 mg by mouth at bed time 1 Active QUEtiapine (SEROquel) 25 MG tablet Take 25 mg by mouth twice a day Active traZODone (DESYREL) 50 MG tablet Take 50 mg by mouth every night Active lamoTRIgine (LaMICtal) 25 MG tablet 1 Active metoprolol succinate XL (TOPROL-XL) 25 MG 24 hr tablet Take 25 mg by mouth 1 (one) time each day 1 Active sildenafil (VIAGRA) 50 MG tablet TAKE 1 TAB BY MOUTH 30 60 MINUTES PRIOR TO SEXUAL INTERCOURSE MAX 100 MG PER DAY 1 Active Active Problems Problem Noted Date Diagnosed Date Chronic kidney disease 08/19/2020 Anoxic brain damage 08/19/2020 Hyperlipidemia 08/19/2020 Social History Tobacco Use Types Packs/Day Years Used Date Smoking Tobacco: Some Days Smokeless Tobacco: Current Sex and Gender Information Value Date Recorded Sex Assigned at Not on file Legal Sex Male 10:43 AM EST Gender Identity Not on file Sexual Orientation Not on file Last Filed Vital Signs Vital Sign Reading Time Taken Comments Blood Pressure 100/62 12/10/2020 3:59 PM EDT Pulse 61 12/10/2020 3:59 PM EDT Temperature - - Respiratory Rate - - Oxygen Saturation 98% 12/10/2020 3:59 PM EDT Inhaled Oxygen Concentration - - Weight 76.9 kg (169 lb 9.6 oz) 12/10/2020 3:59 P M EDT Height - - Body Mass Index - - Plan of Treatment Health Maintenance Due Date Last Done Comments Pneumococcal Vaccine: 65+ Ye ars (1 of 2 - PCV) 1961 Colorectal Cancer Screening: Annual FOBT 2006 Colorectal Cancer Screening: Colonoscopy 2006 Colorectal Cancer Screening: Sigmoidoscopy 2006 Influenza Vaccine (#1) 2024 Hepatitis B Vaccine Aged Out No longe r eligible based on patient's age to complete this topic Insurance [facility] [place] [id number] [facility]
--- OUTSIDE RECORDS SUMMARY | 2024-08-05 16:50 | XMS_ITS | Encounter Summary ---
Author Organization [facility] Address [address] [place] [address] Care Team Providers Care Assembler Movement Name Role Phone Ariana Sidhu MD Primary Care Provider [phone] Encounter Details Date Type Department Care Team (Late st Contact Info) Description 07/29/[address] [facility] - Main Lab [address] [facility] [place] [address] Matthew Lynn MD [address] [place] [address] Encounter for other general examination Social History [...] examination documented in this encounter Results * (ABNORMAL) CBC auto differential (07/29/2024 5:18 AM EST) WBC 7.2 4.8 - 10.8 K/mcL LAB HEMETOLOGY METHOD 07/29/2024 8:57 AM [facility] RBC 3.40(L) 4.50 - 5.50 M/[facility] LAB HEMETOLOGY METHOD 07/29/2024 8:57 AM [facility] Hemoglobin 10.7(L) 13.5 - 17.5 g/dL LAB HEMETOLOGY METHOD 07/29/2024 8:57 AM [facility] LAB Hematocrit 33.0(L) 42.0 - 54.0 % LAB HEMETOLOGY METHOD 07/29/2024 8:57 AM [facility] LAB MCV 98.2(H) 79.0 - 98.0 FL LAB HEMETOLOGY METHOD 07/29/2024 8:57 AM [facility] LAB MCH 31.8 27.0 - 32.0 pcg LAB HEMETOLOGY METHOD 07/29/2024 8:57 AM [facility] LAB MCHC 32.4 32.0 - 37.0 g/dL LAB HEMETOLOGY METHOD 07/29/2024 8:57 AM [facility] LAB RDW 18.1(H) 11.0 - 15.0 % LAB HEMETOLOGY METHOD 07/29/2024 8:57 AM [facility] LAB Platelets 531(H) 130 - 400 K/[facility] LAB HEMETOLOGY METHOD 07/29/2024 8:57 AM [facility] LAB MPV 9.7 7.0 - 11.0 FL LAB HEMETOLOGY METHOD 07/29/2024 8:57 AM [facility] NRBC 0.0 <1.0 % LAB HEMETOLOGY METHOD 07/29/2024 8:57 AM [facility] NRBC Absolute 0.00 <0.10 K/mcL LAB HEMETOLOGY METHOD 07/29/2024 8:57 AM [facility] Neutrophils Relative 36.8 % LAB HEMETOLOGY METHOD 07/29/2024 8:57 AM [facility] Lymphocytes Relative 50.5 % LAB HEMETOLOGY METHOD 07/29/2024 8:57 AM [facility] Monocytes Relative 10.2 % LAB HEMETOLOGY METHOD 07/29/2024 8:57 AM [facility] Eosinophils Relative 1.8 % LAB HEMETOLOGY METHOD 07/29/2024 8:57 AM [facility] Basophils Relative 0.4 % LAB HEMETOLOGY METHOD 07/29/2024 8:57 AM [facility] Immature Granulocytes Relative 0.3 % LAB HEMETOLOGY METHOD 07/29/2024 8:57 AM [facility] Neutrophils Absolute 2.63 1.50 - 7.00 K/mcL LAB HEMETOLOGY METHOD 07/29/2024 8:57 AM [facility] Lymphocytes Absolute 3.61 1.00 - 5.00 K/mcL LAB HEMETOLOGY METHOD 07/29/2024 8:57 AM [facility] Monocytes Absolute 0.73 0.20 - 1.00 K/mcL LAB HEMETOLOGY METHOD 07/29/2024 8:57 AM [facility] Eosinophils Absolute 0.13 0.00 - 0.50 K/mcL LAB HEMETOLOGY METHOD 07/29/2024 8:57 AM [facility] Basophils Absolute 0.03 0.00 - 0.20 K/mcL LAB HEMETOLOGY METHOD 07/29/2024 8:57 AM [facility] Immature Granulocytes Absolute 0.02 0.00 - 0.03 K/mcL LAB HEMETOLOGY METHOD 07/29/2024 8:57 AM [facility] Blood Venous blood specimen / Unknown Venipuncture / Unknown 07/29/2024 5:18 AM EST 07/29/2024 7:24 AM EST Matthew Lynn MD LAB BLOOD ORDERABLES Performing Organization Address City/[facility]/ZIP Co de Phone Number [facility] [address] [place] [address], [place] [phone] * Magnesium (07/29/2024 5:18 AM EST) Pathologist [facility] Magnesium 2.2 1.9 - 2.6 mg/dL LAB CHEMISTRY METHOD 07/29/2024 9:23 AM [facility] Blood Venous blood specimen / Unknown Venipuncture / Unknown 07/29/2024 5:18 AM EST 07/29/2024 7:24 AM EST Matthew Lynn MD LAB BLOOD ORDERABLES Performing Organization Address [facility]/ZIP Co de Phone Number [facility] [address] [place] [address], [place] [phone] * Comprehensive metabolic panel (07/29/2024 5:18 AM EST) Pathologist [facility] Sodium 137 133 - 145 mmol/L LAB CHEMISTRY METHOD 07/29/2024 9:23 AM [facility] Potassium 4.8 3.5 - 5.5 mmol/L LAB CHEMISTRY METHOD 07/29/2024 9:23 AM [facility] Chloride 103 96 - 110 mmol/L LAB CHEMISTRY METHOD 07/29/2024 9:23 AM [facility] CO2 30 21 - 32 mmol/L LAB CHEMISTRY METHOD 07/29/2024 9:23 AM [facility] Anion Gap 4 3 - 11 LAB CHEMISTRY METHOD 07/29/2024 9:23 AM [facility] Glucose 84 70 - 100 mg/dL LAB CHEMISTRY METHOD 07/29/2024 9:23 AM [facility] BUN 20 5 - 25 mg/dL LAB CHEMISTRY METHOD 07/29/2024 9:23 AM [facility] Creatinine 1.19 0.70 - 1.30 mg/dL LAB CHEMISTRY METHOD 07/29/2024 9:23 AM [facility] eGFR 67 >=60 mL/min/1. 73m2 LAB CHEMISTRY METHOD 07/29/2024 9:23 AM [facility] Comment:Calculation based on the??Chronic Kidney Disease Epidemiology Collaboration (CKD-EPI) equation refit??without adjustment for race. BUN/Creatinine Ratio 16.8 LAB CHEMISTRY METHOD 07/29/2024 9:23 AM [facility] Calcium 9.0 8.5 - 10.5 mg/dL LAB CHEMISTRY METHOD 07/29/2024 9:23 AM [facility] AST (SGOT) 29 10 - 42 unit/L LAB CHEMISTRY METHOD 07/29/2024 9:23 AM [facility] ALT (SGPT) 42 10 - 60 unit/L LAB CHEMISTRY METHOD 07/29/2024 9:23 AM [facility] Alkaline Phosphatase 109 42 - 121 unit/L LAB CHEMISTRY METHOD 07/29/2024 9:23 AM [facility] Total Protein 6.6 6.0 - 8.0 g/dL LAB CHEMISTRY METHOD 07/29/2024 9:23 AM [facility] Albumin 3.9 3.2 - 5.0 g/dL LAB CHEMISTRY METHOD 07/29/2024 9:23 AM [facility] Total Bilirubin 0.4 0.0 - 1.4 mg/dL LAB CHEMISTRY METHOD 07/29/2024 9:23 AM [facility] Blood Venous blood specimen / Unknown Venipuncture / Unknown 07/29/2024 5:18 AM EST 07/29/2024 7:24 AM EST Matthew Lynn MD LAB BLOOD ORDERABLES [facility] [address] [place] [address], documented in this encounter Visit Diagnoses Diagnosis Encounter for other general examination documented in this encounter Care Teams Assembler Movement Relationship Specialty Start Date End Date Ariana Sidhu MD [address] [place] [address] PCP - General Internal Medicine 04/22/15 documented as of this encounter
== END 2024-08-05 14:46 | disposition home or self-care (01) ==
LOC: HO.HMGCX 14:45
PROVIDERS: PCP Nurse Practitioner Family; Visit Provider Nurse Practitioner Family
DX: S20.212A Contusion of left front wall of thorax, initial encounter (principal)
CPT/HCPCS: 71101; 99212

== ENCOUNTER → 2024-08-05 15:25 | Outpatient (BNV) | payer MEDICARE, SELFPAY | PROVIDERS: PCP Nurse Practitioner Family; Visit Provider Radiology Diagnostic Radiology | DX: S20.212A Contusion of left front wall of thorax, initial encounter (principal) | CPT/HCPCS: 71101 ==

== ENCOUNTER 2024-08-06 13:02 | Outpatient (REF) | payer MEDICARE, SELFPAY ==
[2024-08-09 13:21] LABS: FIT Int Ctl YES; FIT1 NEGATIVE (NEGATIVE)
[2024-08-09 13:22] LABS: FIT Lot M402476
--- OUTSIDE RECORDS SUMMARY | 2024-08-09 13:38 | XMS_ITS | Encounter Summary ---
Author Organization [facility] Address [address] [place] [address] Care Team Providers Care Instrument Technician Helper Name Role Phone Ariana Sidhu MD Primary Care Provider [phone] Encounter Details Date Type Department Care Team (Late st Contact Info) Description 07/29/2024 Lab Requisition [facility] - Main Lab [address] [facility] [place] [address] Matthew Lynn MD [address] [place] [address] Encounter for other general examination Social History [...] K/mcL LAB HEMETOLOGY METHOD 07/29/2024 8:[address] [facility] RBC 3.40(L) 4.50 - 5.50 M/[facility] LAB HEMETOLOGY METHOD 07/29/2024 8:[address] [facility] Hemoglobin 10.7(L) 13.5 - 17.5 g/dL LAB HEMETOLOGY METHOD 07/29/2024 8:[address] [facility] Hematocrit 33.0(L) 42.0 - 54.0 % LAB HEMETOLOGY METHOD 07/29/2024 8:[address] [facility] MCV 98.2(H) 79.0 - 98.0 FL LAB HEMETOLOGY METHOD 07/29/2024 8:[address] [facility] MCH 31.8 27.0 - 32.0 pcg LAB HEMETOLOGY METHOD 07/29/2024 8:[address] [facility] MCHC 32.4 32.0 - 37.0 g/dL LAB HEMETOLOGY METHOD 07/29/2024 8:[address] [facility] RDW 18.1(H) 11.0 - 15.0 % LAB HEMETOLOGY METHOD 07/29/2024 8:[address] [facility] Platelets 531(H) 130 - 400 K/[facility] LAB HEMETOLOGY METHOD 07/29/2024 8:[address] [facility] MPV 9.7 7.0 - 11.0 FL LAB HEMETOLOGY METHOD 07/29/2024 8:[address] [facility] NRBC 0.0 <1.0 % LAB HEMETOLOGY METHOD 07/29/2024 8:[address] [facility] NRBC Absolute 0.00 <0.10 K/mcL LAB HEMETOLOGY METHOD 07/29/2024 8:[address] [facility] Neutrophils Relative 36.8 % LAB HEMETOLOGY METHOD 07/29/2024 8:[address] [facility] Lymphocytes Relative 50.5 % LAB HEMETOLOGY METHOD 07/29/2024 8:[address] [facility] Monocytes Relative 10.2 % LAB HEMETOLOGY METHOD 07/29/2024 8:[address] [facility] Eosinophils Relative 1.8 % LAB HEMETOLOGY METHOD 07/29/2024 8:[address] [facility] Basophils Relative 0.4 % LAB HEMETOLOGY METHOD 07/29/2024 8:[address] [facility] Immature Granulocytes Relative 0.3 % LAB HEMETOLOGY METHOD 07/29/2024 8:[address] [facility] Neutrophils Absolute 2.63 1.50 - 7.00 K/mcL LAB HEMETOLOGY METHOD 07/29/2024 8:[address] [facility] Lymphocytes Absolute 3.61 1.00 - 5.00 K/mcL LAB HEMETOLOGY METHOD 07/29/2024 8:[address] [facility] Monocytes Absolute 0.73 0.20 - 1.00 K/mcL LAB HEMETOLOGY METHOD 07/29/2024 8:[address] [facility] Eosinophils Absolute 0.13 0.00 - 0.50 K/mcL LAB HEMETOLOGY METHOD 07/29/2024 8:[address] [facility] Basophils Absolute 0.03 0.00 - 0.20 K/mcL LAB HEMETOLOGY METHOD 07/29/2024 8:[address] [facility] Immature Granulocytes Absolute 0.02 0.00 - 0.03 K/mcL LAB HEMETOLOGY METHOD 07/29/2024 8:[address] [facility] Blood Venous blood specimen / Unknown Venipuncture / Unknown 07/29/2024 5:18 AM EST 07/29/2024 7:24 AM EST Matthew Lynn MD LAB BLOOD ORDERABLES Performing Organization Address City/[facility]/ZIP Co de Phone Number [facility] [address] [place] [address], [place] [phone] * Magnesium (07/29/2024 5:18 AM EST) Pathologist [facility] Magnesium 2.2 1.9 - 2.6 mg/dL LAB CHEMISTRY METHOD 07/29/2024 9:[address] [facility] Blood Venous blood specimen / Unknown Venipuncture / Unknown 07/29/2024 5:18 AM EST 07/29/2024 7:24 AM EST Matthew Lynn MD LAB BLOOD ORDERABLES Performing Organization Address [facility]/ZIP Co de Phone Number [facility] [address] [place] [address], [place] [phone] * Comprehensive metabolic panel (07/29/2024 5:18 AM EST) Pathologist [facility] Sodium 137 133 - 145 mmol/L LAB CHEMISTRY METHOD 07/29/2024 9:[address] [facility] Potassium 4.8 3.5 - 5.5 mmol/L LAB CHEMISTRY METHOD 07/29/2024 9:[address] [facility] Chloride 103 96 - 110 mmol/L LAB CHEMISTRY METHOD 07/29/2024 9:[address] [facility] CO2 30 21 - 32 mmol/L LAB CHEMISTRY METHOD 07/29/2024 9:[address] [facility] Anion Gap 4 3 - 11 LAB CHEMISTRY METHOD 07/29/2024 9:[address] [facility] Glucose 84 70 - 100 mg/dL LAB CHEMISTRY METHOD 07/29/2024 9:[address] [facility] BUN 20 5 - 25 mg/dL LAB CHEMISTRY METHOD 07/29/2024 9:[address] [facility] Creatinine 1.19 0.70 - 1.30 mg/dL LAB CHEMISTRY METHOD 07/29/2024 9:[address] [facility] eGFR 67 >=60 mL/min/1. 73m2 LAB CHEMISTRY METHOD 07/29/2024 9:[address] [facility] Comment:Calculation based on the??Chronic Kidney Disease Epidemiology Collaboration (CKD-EPI) equation refit??without adjustment for race. BUN/Creatinine Ratio 16.8 LAB CHEMISTRY METHOD 07/29/2024 9:[address] [facility] Calcium 9.0 8.5 - 10.5 mg/dL LAB CHEMISTRY METHOD 07/29/2024 9:[address] [facility] AST (SGOT) 29 10 - 42 unit/L LAB CHEMISTRY METHOD 07/29/2024 9:[address] [facility] ALT (SGPT) 42 10 - 60 unit/L LAB CHEMISTRY METHOD 07/29/2024 9:[address] [facility] Alkaline Phosphatase 109 42 - 121 unit/L LAB CHEMISTRY METHOD 07/29/2024 9:[address] [facility] Total Protein 6.6 6.0 - 8.0 g/dL LAB CHEMISTRY METHOD 07/29/2024 9:[address] [facility] Albumin 3.9 3.2 - 5.0 g/dL LAB CHEMISTRY METHOD 07/29/2024 9:[address] [facility] Total Bilirubin 0.4 0.0 - 1.4 mg/dL LAB CHEMISTRY METHOD 07/29/2024 9:[address] [facility] Blood Venous blood specimen / Unknown Venipuncture / Unknown 07/29/2024 5:18 AM EST 07/29/2024 7:24 AM EST Matthew Lynn MD LAB BLOOD ORDERABLES [facility] [address] [place] [address], documented in this encounter Visit Diagnoses Diagnosis Encounter for other general examination documented in this encounter Care Teams Instrument Technician Helper Relationship Specialty Start Date End Date Ariana Sidhu MD [address] [place] [address] PCP - General Internal Medicine 04/22/15 documented as of this encounter
--- OUTSIDE RECORDS SUMMARY | 2024-08-09 13:38 | XMS_ITS | Encounter Summary ---
Author Organization [facility] Address [address] [place] [address] Care Team Providers Care Restorer Lace And Textiles Name Role Phone Ariana Sidhu MD Primary Care Provider [phone] Encounter Details Date Type Department Care Team (Late st Contact Info) Description 07/23/2024 Lab Requisition [facility] - Main Lab [address] [facility] [place] [address] Matthew Lynn MD [address] [place] [address] Encounter for other general examination Social History [...] stimulating hormone (07/23/2024 5:35 AM EST) Pathologist [facility] TSH 1.96 0.40 - 4.00 mcIU/mL LAB CHEMISTRY METHOD 07/23/2024 5:28 PM EST [facility] Blood Venous blood specimen / Unknown Venipuncture / Unknown 07/23/2024 5:35 AM EST 07/23/2024 9:54 AM EST Matthew Lynn MD LAB BLOOD ORDERABLES [facility] [address] [place] [address], * (ABNORMAL) CBC auto differential (07/23/2024 5:35 AM EST) Pathologist [facility] WBC 7.1 4.8 - 10.8 K/mcL LAB HEMETOLOGY METHOD 07/23/2024 10:44 AM [facility] RBC 3.20(L) 4.50 - 5.50 M/mcL LAB HEMETOLOGY METHOD 07/23/2024 10:44 AM [facility] Hemoglobin 10.3(L) 13.5 - 17.5 g/dL LAB HEMETOLOGY METHOD 07/23/2024 10:44 AM [facility] Hematocrit 31.0(L) 42.0 - 54.0 % LAB HEMETOLOGY METHOD 07/23/2024 10:44 AM [facility] MCV 97.8 79.0 - 98.0 FL LAB HEMETOLOGY METHOD 07/23/2024 10:44 AM [facility] MCH 32.5(H) 27.0 - 32.0 pcg LAB HEMETOLOGY METHOD 07/23/2024 10:44 AM [facility] MCHC 33.2 32.0 - 37.0 g/dL LAB HEMETOLOGY METHOD 07/23/2024 10:44 AM [facility] RDW 17.6(H) 11.0 - 15.0 % LAB HEMETOLOGY METHOD 07/23/2024 10:44 AM [facility] Platelets 554(H) 130 - 400 K/mcL LAB HEMETOLOGY METHOD 07/23/2024 10:44 AM [facility] MPV 10.0 7.0 - 11.0 FL LAB HEMETOLOGY METHOD 07/23/2024 10:44 AM [facility] NRBC 0.0 <1.0 % LAB HEMETOLOGY METHOD 07/23/2024 10:44 AM [facility] NRBC Absolute 0.00 <0.10 K/mcL LAB HEMETOLOGY METHOD 07/23/2024 10:44 AM [facility] Neutrophils Relative 39.3 % LAB HEMETOLOGY METHOD 07/23/2024 10:44 AM [facility] Lymphocytes Relative 44.8 % LAB HEMETOLOGY METHOD 07/23/2024 10:44 AM [facility] Monocytes Relative 13.1 % LAB HEMETOLOGY METHOD 07/23/2024 10:44 AM [facility] Eosinophils Relative 1.6 % LAB HEMETOLOGY METHOD 07/23/2024 10:44 AM [facility] Basophils Relative 0.6 % LAB HEMETOLOGY METHOD 07/23/2024 10:44 AM [facility] Immature Granulocytes Relative 0.6 % LAB HEMETOLOGY METHOD 07/23/2024 10:44 AM [facility] Neutrophils Absolute 2.79 1.50 - 7.00 K/mcL LAB HEMETOLOGY METHOD 07/23/2024 10:44 AM [facility] Lymphocytes Absolute 3.17 1.00 - 5.00 K/mcL LAB HEMETOLOGY METHOD 07/23/2024 10:44 AM EST [facility] Monocytes Absolute 0.93 0.20 - 1.00 K/mcL LAB HEMETOLOGY METHOD 07/23/2024 10:44 AM EST [facility] Eosinophils Absolute 0.11 0.00 - 0.50 K/mcL LAB HEMETOLOGY METHOD 07/23/2024 10:44 AM EST [facility] Basophils Absolute 0.04 0.00 - 0.20 K/[facility] LAB HEMETOLOGY METHOD 07/23/2024 10:44 AM EST [facility] Immature Granulocytes Absolute 0.04(H) 0.00 - 0.03 K/mcL LAB HEMETOLOGY METHOD 07/23/2024 10:44 AM [facility] Blood Venous blood specimen / Unknown Venipuncture / Unknown 07/23/2024 5:35 AM EST 07/23/2024 9:54 AM EST Matthew Lynn MD LAB BLOOD ORDERABLES [facility] [address] [place] [address], * Magnesium (07/23/2024 5:35 AM EST) [facility] Magnesium 2.3 1.9 - 2.6 mg/dL LAB CHEMISTRY METHOD 07/23/2024 11:15 AM EST [facility] Blood Venous blood specimen / Unknown Venipuncture / Unknown 07/23/2024 5:35 AM EST 07/23/2024 9:54 AM EST Matthew Lynn MD LAB BLOOD ORDERABLES [facility] [address] [place] [address], [place] [phone] * (ABNORMAL) Comprehensive metabolic panel (07/23/2024 5:35 AM EST) Pathologist [facility] Sodium 135 133 - 145 mmol/L LAB CHEMISTRY METHOD 07/23/2024 11:15 AM [facility] Potassium 4.5 3.5 - 5.5 mmol/L LAB CHEMISTRY METHOD 07/23/2024 11:15 AM [facility] Chloride 103 96 - 110 mmol/L LAB CHEMISTRY METHOD 07/23/2024 11:15 AM [facility] CO2 25 21 - 32 mmol/L LAB CHEMISTRY METHOD 07/23/2024 11:15 AM [facility] Anion Gap 7 3 - 11 LAB CHEMISTRY METHOD 07/23/2024 11:15 AM [facility] Glucose 81 70 - 100 mg/dL LAB CHEMISTRY METHOD 07/23/2024 11:15 AM [facility] BUN 19 5 - 25 mg/dL LAB CHEMISTRY METHOD 07/23/2024 11:15 AM [facility] Creatinine 1.19 0.70 - 1.30 mg/dL LAB CHEMISTRY METHOD 07/23/2024 11:15 AM [facility] eGFR 67 >=60 mL/min/1. 73m2 LAB CHEMISTRY METHOD 07/23/2024 11:15 AM [facility] Comment:Calculation based on the??Chronic Kidney Disease Epidemiology Collaboration (CKD-EPI) equation refit??without adjustment for race. BUN/Creatinine Ratio 16.0 LAB CHEMISTRY METHOD 07/23/2024 11:15 AM [facility] Calcium 8.8 8.5 - 10.5 mg/dL LAB CHEMISTRY METHOD 07/23/2024 11:15 AM [facility] AST (SGOT) 66(H) 10 - 42 unit/L LAB CHEMISTRY METHOD 07/23/2024 11:15 AM [facility] ALT (SGPT) 74(H) 10 - 60 unit/L LAB CHEMISTRY METHOD 07/23/2024 11:15 AM [facility] Alkaline Phosphatase 120 42 - 121 unit/L LAB CHEMISTRY METHOD 07/23/2024 11:15 AM EST [facility] Total Protein 6.9 6.0 - 8.0 g/dL LAB CHEMISTRY METHOD 07/23/2024 11:15 AM EST [facility] Albumin 3.8 3.2 - 5.0 g/dL LAB CHEMISTRY METHOD 07/23/2024 11:15 AM EST [facility] Total Bilirubin 0.4 0.0 - 1.4 mg/dL LAB CHEMISTRY METHOD 07/23/2024 11:15 AM EST [facility] Blood Venous blood specimen / Unknown Venipuncture / Unknown 07/23/2024 5:35 AM EST 07/23/2024 9:54 AM EST Matthew Lynn MD LAB BLOOD ORDERABLES [facility] [address] [place] [address], documented in this encounter Visit Diagnoses Diagnosis Encounter for other general examination documented in this encounter Care Teams Restorer Lace And Textiles Relationship Specialty Start Date End Date Ariana Sidhu MD [address] [place] [address] PCP - General Internal Medicine 04/22/15 documented as of this encounter
--- OUTSIDE RECORDS SUMMARY | 2024-08-09 13:38 | XMS_ITS | Clinical Summary ---
Author Organization [facility] Facility Address [address] [address] Care Team Providers Care Hydrologic Modeler Name Role Phone Unavailable Primary Care Provider [...] patient's age to complete this topic Insurance [facility] [place] [id number] [facility]
--- OUTSIDE RECORDS SUMMARY | 2024-08-09 13:38 | XMS_ITS | Clinical Summary ---
Author Organization [facility] [address] [place] [address] [place] [phone] Phone Care Team Providers Care Tour Guide Name Role Phone Ariana Sidhu MD Primary Care Provider [phone] Allergies Active Allergy Reactions Criticality Noted Date [...] mcg by mouth daily. 08/06/2021 Active cloNIDine ([id number]) 0.1 mg/[address] 0.1 mg onto [...] Department Care Team Description 07/29/2024 Lab Requisition [facility] - Main Lab [address] [place] [address] Matthew Lynn MD Encounter for other general examination 07/23/2024 Lab Requisition [facility] - Main Lab [address] [place] [address] Matthew Lynn MD Encounter for [...] (HCC); COMMENT: Due to delayed response after ID Fluctuation of weight DX:Fluctua tion of weight [...] K/mcL LAB HEMETOLOGY METHOD 07/29/2024 8:57 AM [facility] RBC 3.40(L) 4.50 - 5.50 M/mcL LAB HEMETOLOGY METHOD 07/29/2024 8:57 AM [facility] Hemoglobin 10.7(L) 13.5 - 17.5 g/dL LAB HEMETOLOGY METHOD 07/29/2024 8:57 AM [facility] Hematocrit 33.0(L) 42.0 - 54.0 % LAB HEMETOLOGY METHOD 07/29/2024 8:57 AM [facility] MCV 98.2(H) 79.0 - 98.0 FL LAB HEMETOLOGY METHOD 07/29/2024 8:57 AM [facility] MCH 31.8 27.0 - 32.0 pcg LAB HEMETOLOGY METHOD 07/29/2024 8:57 AM [facility] MCHC 32.4 32.0 - 37.0 g/dL LAB HEMETOLOGY METHOD 07/29/2024 8:57 AM [facility] RDW 18.1(H) 11.0 - 15.0 % LAB HEMETOLOGY METHOD 07/29/2024 8:57 AM [facility] Platelets 531(H) 130 - 400 K/mcL LAB HEMETOLOGY METHOD 07/29/2024 8:57 AM [facility] MPV 9.7 7.0 - 11.0 FL LAB HEMETOLOGY METHOD 07/29/2024 8:57 AM [facility] NRBC 0.0 <1.0 % LAB HEMETOLOGY METHOD 07/29/2024 8:57 AM [facility] NRBC Absolute 0.00 <0.10 K/mcL LAB HEMETOLOGY METHOD 07/29/2024 8:57 AM [facility] Neutrophils Relative 36.8 % LAB HEMETOLOGY METHOD 07/29/2024 8:57 AM [facility] Lymphocytes Relative 50.5 % LAB HEMETOLOGY METHOD 07/29/2024 8:57 AM [facility] Monocytes Relative 10.2 % LAB HEMETOLOGY METHOD 07/29/2024 8:57 AM [facility] Eosinophils Relative 1.8 % LAB HEMETOLOGY METHOD 07/29/2024 8:57 AM [facility] Basophils Relative 0.4 % LAB HEMETOLOGY METHOD 07/29/2024 8:57 AM [facility] Immature Granulocytes Relative 0.3 % LAB HEMETOLOGY METHOD 07/29/2024 8:57 AM EST [facility] Neutrophils Absolute 2.63 1.50 - 7.00 K/[facility] LAB HEMETOLOGY METHOD 07/29/2024 8:57 AM EST [facility] Lymphocytes Absolute 3.61 1.00 - 5.00 K/mcL LAB HEMETOLOGY METHOD 07/29/2024 8:57 AM EST [facility] Monocytes Absolute 0.73 0.20 - 1.00 K/[facility] LAB HEMETOLOGY METHOD 07/29/2024 8:57 AM EST [facility] Eosinophils Absolute 0.13 0.00 - 0.50 K/[facility] LAB HEMETOLOGY METHOD 07/29/2024 8:57 AM [facility] Basophils Absolute 0.03 0.00 - 0.20 K/mcL LAB HEMETOLOGY METHOD 07/29/2024 8:57 AM EST [facility] Immature Granulocytes Absolute 0.02 0.00 - 0.03 K/[facility] LAB HEMETOLOGY METHOD 07/29/2024 8:57 AM [facility] Blood Venous blood specimen / Unknown Venipuncture / Unknown 07/29/2024 5:18 AM EST 07/29/2024 7:24 AM EST Matthew Lynn MD LAB BLOOD ORDERABLES [facility] [address] [place] [address], * Magnesium (07/29/2024 5:18 AM EST) Only the most recent of2 resultswithin the time period is included. Magnesium 2.2 1.9 - 2.6 mg/dL LAB CHEMISTRY METHOD 07/29/2024 9:23 AM EST [facility] Blood Venous blood specimen / Unknown Venipuncture / Unknown 07/29/2024 5:18 AM EST 07/29/2024 7:24 AM EST Matthew Lynn MD LAB BLOOD ORDERABLES [facility] [address] [place] [address], * Comprehensive metabolic panel (07/29/2024 5:18 AM EST) Only the most recent of2 resultswithin the time period is included. Pathologist [facility] Sodium 137 133 - 145 mmol/L LAB CHEMISTRY METHOD 07/29/2024 9:23 AM [facility] Potassium 4.8 3.5 - 5.5 mmol/L LAB CHEMISTRY METHOD 07/29/2024 9:23 AM [facility] Chloride 103 96 - 110 mmol/L LAB CHEMISTRY METHOD 07/29/2024 9:23 AM [facility] CO2 30 21 - 32 mmol/L LAB CHEMISTRY METHOD 07/29/2024 9:23 AM [facility] Anion Gap 4 3 - 11 LAB CHEMISTRY METHOD 07/29/2024 9:23 AM [facility] Glucose 84 70 - 100 mg/dL LAB CHEMISTRY METHOD 07/29/2024 9:23 AM [facility] BUN 20 5 - 25 mg/dL LAB CHEMISTRY METHOD 07/29/2024 9:23 AM [facility] Creatinine 1.19 0.70 - 1.30 mg/dL LAB CHEMISTRY METHOD 07/29/2024 9:23 AM [facility] eGFR 67 >=60 mL/min/1. 73m2 LAB CHEMISTRY METHOD 07/29/2024 9:23 AM [facility] Comment:Calculation based on the??Chronic Kidney Disease Epidemiology Collaboration (CKD-EPI) equation refit??without adjustment for race. BUN/Creatinine Ratio 16.8 LAB CHEMISTRY METHOD 07/29/2024 9:23 AM [facility] Calcium 9.0 8.5 - 10.5 mg/dL LAB CHEMISTRY METHOD 07/29/2024 9:23 AM [facility] AST (SGOT) 29 10 - 42 unit/L LAB CHEMISTRY METHOD 07/29/2024 9:23 AM [facility] ALT (SGPT) 42 10 - 60 unit/L LAB CHEMISTRY METHOD 07/29/2024 9:23 AM [facility] Alkaline Phosphatase 109 42 - 121 unit/L LAB CHEMISTRY METHOD 07/29/2024 9:23 AM [facility] Total Protein 6.6 6.0 - 8.0 g/dL LAB CHEMISTRY METHOD 07/29/2024 9:23 AM [facility] Albumin 3.9 3.2 - 5.0 g/dL LAB CHEMISTRY METHOD 07/29/2024 9:23 AM [facility] Total Bilirubin 0.4 0.0 - 1.4 mg/dL LAB CHEMISTRY METHOD 07/29/2024 9:23 AM [facility] Blood Venous blood specimen / Unknown Venipuncture / Unknown 07/29/2024 5:18 AM EST 07/29/2024 7:24 AM EST Matthew Lynn MD LAB BLOOD ORDERABLES Performing Organization Address City/State/[facility] Co de Phone Number [facility] [address] [place] [address], * Thyroid stimulating hormone (07/23/2024 5:35 AM EST) TSH 1.96 0.40 - 4.00 mcIU/mL LAB CHEMISTRY METHOD 07/23/2024 5:28 PM EST [facility] Blood Venous blood specimen / Unknown Venipuncture / Unknown 07/23/2024 5:35 AM EST 07/23/2024 9:54 AM EST Matthew Lynn MD [facility]LOOD [facility]ABLES [facility] [address] [place] [address], * US ABDOMINAL AORTA REAL TIME SCREEN [...] PROCEDURES * (ABNORMAL) Lipid panel (09/08/2022) Pathologist [facility] LDL/HDL Ratio 3 0 - 4 Triglycerides 52 0 - 150 mg/dL Cholesterol 90 0 - 200 mg/dL HDL 36(A) 40 mg/dL LDL Cholesterol 44 0 - 100 mg/dL Blood Venous blood specimen / Unknown Historical Provider LAB BLOOD ORDERAB LES * Hepatitis C Screening (11/03/2016) Pathologist [facility] Hepatitis C Screening ABSTRACTED Historical Provider [facility] from Last 3 Months or Most Recently Relevant to Health Maintenance Care Teams Tour Guide Relationship Specialty Start Date End Date Ariana Sidhu MD [address] [place] [address] PCP - General Internal Medicine 04/22/15
--- OUTSIDE RECORDS SUMMARY | 2024-08-09 13:38 | XMS_ITS | Clinical Summary ---
Author Organization [facility] Address [address] [place] [address] Care Team Providers Care Veneer Trimmer Name Role Phone eBni Moore MD Primary Care Provider Allergies Active Allergy Reactions Criticality Noted Date [...] age to complete this topic Care Teams Veneer Trimmer Relationship Specialty Start Date End Date Beni Moore MD PCP - General Internal Medicine 08/09/21
== END 2024-08-06 13:03 | disposition home or self-care (01) ==
LOC: HO.LNP 13:02
PROVIDERS: Visit Provider Nurse Practitioner Family
DX: R19.7 Diarrhea, unspecified (principal)
CPT/HCPCS: 82274

== ENCOUNTER 2024-08-19 12:20 | Outpatient (REF) | payer MEDICARE, SELFPAY ==
--- NOTE | ~2024-08-19 | XR_ITS ---
EXAMINATION: XR ABDOMEN KUB CLINICAL INDICATION: R19.7 - Diarrhea, unspecified COMPARISON: None available. Correlation made with CT abdomen pelvis 06/27/2024. TECHNIQUE: AP view of the abdomen. FINDINGS: The gas pattern is normal/nonspecific. There is no focally dilated loop. There is mild amount of retained fecal material in the transverse and descending colon. No organomegaly or large abdominal mass. No abnormal soft tissue calcifications. Lung bases are clear. Osseous structures demonstrate no suspicious lesion. There is chondrocalcinosis of both hip joints. XR/XR abdomen 1V IMPRESSION: 1. No acute findings of the abdomen. Electronically signed by: Masood Bahena MD 08/20/2024 10:41 AM [facility]
--- OUTSIDE RECORDS SUMMARY | 2024-08-19 13:28 | XMS_ITS | Encounter Summary ---
Author Organization [facility] Address [address] [place] [address] Care Team Providers Care Human Service Specialist Name Role Phone Ariana Sidhu MD Primary Care Provider [phone] Encounter Details Date Type Department Care Team (Late st Contact Info) Description 07/29/2024 Lab Requisition [facility] - Main Lab [address] [facility] [place] [address] Matthew Lynn MD [address] [place] [address] Encounter for other general examination Social History [...] CBC auto differential (07/29/2024 5:18 AM EST) [facility] WBC 7.2 4.8 - 10.8 K/mcL LAB HEMETOLOGY METHOD 07/29/2024 8:57 AM [facility] LAB RBC 3.40(L) 4.50 - 5.50 M/mcL LAB HEMETOLOGY METHOD 07/29/2024 8:57 AM [facility] LAB Hemoglobin 10.7(L) 13.5 - 17.5 g/dL LAB HEMETOLOGY METHOD 07/29/2024 8:57 AM [facility] LAB Hematocrit 33.0(L) 42.0 - 54.0 [...] 8:57 AM [facility] Basophils Relative 0.4 % LAB HEMETOLOGY METHOD 07/29/2024 8:57 AM [facility] LAB Immature Granulocytes Relative 0.3 % LAB HEMETOLOGY METHOD 07/29/2024 8:57 AM [facility] LAB Neutrophils Absolute 2.63 1.50 - 7.00 K/mcL LAB HEMETOLOGY METHOD 07/29/2024 8:57 AM [facility] LAB Lymphocytes Absolute 3.61 1.00 - 5.00 K/mcL LAB HEMETOLOGY METHOD 07/29/2024 8:57 AM [facility] Monocytes Absolute 0.73 0.20 - 1.00 K/mcL LAB HEMETOLOGY METHOD 07/29/2024 8:57 AM [facility] LAB Eosinophils Absolute 0.13 0.00 - 0.50 K/mcL LAB HEMETOLOGY METHOD 07/29/2024 8:57 AM [facility] Basophils Absolute 0.03 0.00 - [...] MD LAB BLOOD ORDERABLES Final Resu lt [facility] [address] [place] [address], [place] [phone] * Magnesium (07/29/2024 5:18 AM EST) Pathologist [facility] Magnesium 2.2 1.9 - 2.6 mg/dL LAB CHEMISTRY METHOD 07/29/2024 9:23 AM EST [facility] Blood Venous blood specimen / Unknown Venipuncture / Unknown 07/29/2024 5:18 AM EST 07/29/2024 7:24 AM EST us Matthew Lynn MD LAB BLOOD ORDERABLES Final Resu lt [facility] [address] [place] [address], [place] [phone] * Comprehensive metabolic panel (07/29/2024 5:18 AM EST) Pathologist [facility] Sodium 137 133 - 145 mmol/L LAB CHEMISTRY METHOD 07/29/2024 9:23 AM [facility] Potassium 4.8 3.5 - 5.5 mmol/L LAB CHEMISTRY METHOD 07/29/2024 9:23 AM EST [facility] Chloride 103 96 - 110 mmol/L LAB CHEMISTRY METHOD 07/29/2024 9:23 AM EST [facility] CO2 30 21 - 32 [...] LAB BLOOD ORDERABLES Final Resu lt [facility] [address] [place] [address], documented in this encounter Visit Diagnoses Diagnosis Encounter for other general examination documented in this encounter Care Teams Human Service Specialist Relationship Specialty Start Date End Date Ariana Sidhu MD [address] [place] [address] PCP - General Internal Medicine 04/22/15 documented as of this encounter
--- OUTSIDE RECORDS SUMMARY | 2024-08-19 13:28 | XMS_ITS | Clinical Summary ---
Author Organization [facility] Facility Address [address] [address] Care Team Providers Care Network Technical Analyst Name Role Phone Unavailable Primary Care Provider [...] patient's age to complete this topic [facility] [place] [id number] [facility]
--- OUTSIDE RECORDS SUMMARY | 2024-08-19 13:28 | XMS_ITS | Encounter Summary ---
Author Organization [facility] Address [address] [place] [address] Care Team Providers Care Lens Marker Name Role Phone Ariana Sidhu MD Primary Care Provider [phone] Encounter Details Date Type Department Care Team (Late st Contact Info) Description 07/23/2024 Lab Requisition [facility] - Main Lab [address] [facility] [place] [address] Matthew Lynn MD [address] [place] [phone] Encounter for other general examination Social History [...] Thyroid stimulating hormone (07/23/2024 5:35 AM EST) [facility] TSH 1.96 0.40 - 4.00 mcIU/mL LAB CHEMISTRY METHOD 07/23/2024 5:28 PM EST [facility] Blood Venous blood specimen / Unknown Venipuncture / Unknown 07/23/2024 5:35 AM EST 07/23/2024 9:54 AM EST us Matthew Lynn MD LAB BLOOD ORDERABLES Final Resu lt [facility] [address] [place] [address], [place] [phone] * (ABNORMAL) CBC auto differential (07/23/2024 5:35 AM EST) [facility] WBC 7.1 4.8 - 10.8 K/mcL LAB HEMETOLOGY METHOD 07/23/2024 10:44 AM [facility] RBC 3.20(L) 4.50 - 5.50 M/mcL LAB HEMETOLOGY METHOD 07/23/2024 10:44 AM [facility] Hemoglobin 10.3(L) 13.5 - 17.5 g/dL LAB HEMETOLOGY METHOD 07/23/2024 10:44 AM [facility] Hematocrit 31.0(L) 42.0 - 54.0 % LAB HEMETOLOGY METHOD 07/23/2024 10:44 AM [facility] MCV 97.8 79.0 - 98.0 FL LAB HEMETOLOGY METHOD 07/23/2024 10:44 AM [facility] MCH 32.5(H) 27.0 - 32.0 pcg LAB HEMETOLOGY METHOD 07/23/2024 10:44 AM [facility] MCHC 33.2 32.0 - 37.0 g/dL LAB HEMETOLOGY METHOD 07/23/2024 10:44 AM [facility] RDW 17.6(H) 11.0 - 15.0 % LAB HEMETOLOGY METHOD 07/23/2024 10:44 AM [facility] Platelets 554(H) 130 - 400 K/mcL LAB HEMETOLOGY METHOD 07/23/2024 10:44 AM [facility] MPV 10.0 7.0 - 11.0 FL LAB HEMETOLOGY METHOD 07/23/2024 10:44 AM [facility] NRBC 0.0 <1.0 % LAB HEMETOLOGY METHOD 07/23/2024 10:44 AM [facility] NRBC Absolute 0.00 <0.10 K/mcL LAB HEMETOLOGY METHOD 07/23/2024 10:44 AM [facility] Neutrophils Relative 39.3 % LAB HEMETOLOGY METHOD 07/23/2024 10:44 AM [facility] Lymphocytes Relative 44.8 % LAB HEMETOLOGY METHOD 07/23/2024 10:44 AM [facility] Monocytes Relative 13.1 % LAB HEMETOLOGY METHOD 07/23/2024 10:44 AM [facility] Eosinophils Relative 1.6 % LAB HEMETOLOGY METHOD 07/23/2024 10:44 AM [facility] Basophils Relative 0.6 % LAB HEMETOLOGY METHOD 07/23/2024 10:44 AM [facility] Immature Granulocytes Relative 0.6 % LAB HEMETOLOGY METHOD 07/23/2024 10:44 AM [facility] Neutrophils Absolute 2.79 1.50 - 7.00 K/mcL LAB HEMETOLOGY METHOD 07/23/2024 10:44 AM [facility] Lymphocytes Absolute 3.17 1.00 - 5.00 K/mcL LAB HEMETOLOGY METHOD 07/23/2024 10:44 AM EST [facility] Monocytes Absolute 0.93 0.20 - 1.00 K/[facility] LAB HEMETOLOGY METHOD 07/23/2024 10:44 AM EST [facility] Eosinophils Absolute 0.11 0.00 - 0.50 K/[facility] LAB HEMETOLOGY METHOD 07/23/2024 10:44 AM EST [facility] Basophils Absolute 0.04 0.00 - 0.20 K/[facility] LAB HEMETOLOGY METHOD 07/23/2024 10:44 AM EST [facility] Immature Granulocytes Absolute 0.04(H) 0.00 - 0.03 K/[facility] LAB HEMETOLOGY METHOD 07/23/2024 10:44 AM EST [facility] Blood Venous blood specimen / Unknown Venipuncture / Unknown 07/23/2024 5:35 AM EST 07/23/2024 9:54 AM EST us Matthew Lynn MD LAB BLOOD ORDERABLES Final Resu lt Performing Organization Address City/[facility]/ZIP Co de Phone Number [facility] [address] [place] [address], [place] [phone] * Magnesium (07/23/2024 5:35 AM EST) Magnesium 2.3 1.9 - 2.6 mg/dL LAB CHEMISTRY METHOD 07/23/2024 11:15 AM EST [facility] Blood Venous blood specimen / Unknown Venipuncture / Unknown 07/23/2024 5:35 AM EST 07/23/2024 9:54 AM EST us Matthew Lynn MD LAB BLOOD ORDERABLES Final Resu lt [facility] [address] [place] [address], [place] [phone] * (ABNORMAL) Comprehensive metabolic panel (07/23/2024 5:35 AM EST) Sodium 135 133 - 145 mmol/L LAB CHEMISTRY METHOD 07/23/2024 11:15 AM [facility] Potassium 4.5 3.5 - 5.5 mmol/L LAB CHEMISTRY METHOD 07/23/2024 11:15 AM [facility] Chloride 103 96 - 110 mmol/L LAB CHEMISTRY METHOD 07/23/2024 11:15 AM [facility] CO2 25 21 - 32 mmol/L LAB CHEMISTRY METHOD 07/23/2024 11:15 AM [facility] Anion Gap 7 3 - 11 LAB CHEMISTRY METHOD 07/23/2024 11:15 AM [facility] Glucose 81 70 - 100 mg/dL LAB CHEMISTRY METHOD 07/23/2024 11:15 AM [facility] BUN 19 5 - 25 mg/dL LAB CHEMISTRY METHOD 07/23/2024 11:15 AM [facility] Creatinine 1.19 0.70 - 1.30 mg/dL LAB CHEMISTRY METHOD 07/23/2024 11:15 AM [facility] eGFR 67 >=60 mL/min/1. 73m2 LAB CHEMISTRY METHOD 07/23/2024 11:15 AM [facility] Comment:Calculation based on the??Chronic Kidney Disease Epidemiology Collaboration (CKD-EPI) equation refit??without adjustment for race. BUN/Creatinine Ratio 16.0 LAB CHEMISTRY METHOD 07/23/2024 11:15 AM [facility] Calcium 8.8 8.5 - 10.5 mg/dL LAB CHEMISTRY METHOD 07/23/2024 11:15 AM [facility] AST (SGOT) 66(H) 10 - 42 unit/L LAB CHEMISTRY METHOD 07/23/2024 11:15 AM [facility] ALT (SGPT) 74(H) 10 - 60 unit/L LAB CHEMISTRY METHOD 07/23/2024 11:15 AM EST [facility] Alkaline Phosphatase 120 42 - 121 unit/L LAB CHEMISTRY METHOD 07/23/2024 11:15 AM [facility] Total Protein 6.9 6.0 - 8.0 g/dL LAB CHEMISTRY METHOD 07/23/2024 11:15 AM EST [facility] Albumin 3.8 3.2 - 5.0 g/dL LAB CHEMISTRY METHOD 07/23/2024 11:15 AM [facility] Total Bilirubin 0.4 0.0 - 1.4 mg/dL LAB CHEMISTRY METHOD 07/23/2024 11:15 AM [facility] Blood Venous blood specimen / Unknown Venipuncture / Unknown 07/23/2024 5:35 AM EST 07/23/2024 9:54 AM EST us Matthew Lynn MD LAB BLOOD ORDERABLES Final Resu lt [facility] [address] [place] [address], documented in this encounter Visit Diagnoses Diagnosis Encounter for other general examination documented in this encounter Care Teams Lens Marker Relationship Specialty Start Date End Date Ariana Sidhu MD [address] [place] [address] PCP - General Internal Medicine 04/22/15 documented as of this encounter
--- OUTSIDE RECORDS SUMMARY | 2024-08-19 13:28 | XMS_ITS | Clinical Summary ---
Author Organization [facility] [address] [place] [address] [place] [phone] Phone Care Team Providers Care Meteorology Instructor Name Role Phone Ariana Sidhu MD Primary Care Provider [phone] Allergies Active Allergy Reactions Criticality Noted Date [...] mcg by mouth daily. 08/06/2021 Active cloNIDine ([id number]) 0.1 mg/[address] 0.1 mg onto [...] Department Care Team Description 07/29/2024 Lab Requisition [facility] - Main Lab [address] [facility] [place] [address] Matthew Lynn MD Encounter for other general examination 07/23/2024 Lab Requisition [facility] - Main Lab [address] [place] [address] Matthew Lynn MD Encounter for [...] (HCC); COMMENT: Due to delayed response after HI Fluctuation of weight DX:Fluctua tion of weight [...] LAB HEMETOLOGY METHOD 07/29/2024 8:57 AM EST [facility] RBC 3.40(L) 4.50 - 5.50 M/mcL LAB HEMETOLOGY METHOD 07/29/2024 8:57 AM EST [facility] Hemoglobin 10.7(L) 13.5 - 17.5 g/dL LAB HEMETOLOGY METHOD 07/29/2024 8:57 AM EST [facility] Hematocrit 33.0(L) 42.0 - 54.0 % LAB HEMETOLOGY METHOD 07/29/2024 8:57 AM [facility] MCV 98.2(H) 79.0 - 98.0 FL LAB HEMETOLOGY METHOD 07/29/2024 8:57 AM [facility] MCH 31.8 27.0 - 32.0 pcg LAB HEMETOLOGY METHOD 07/29/2024 8:57 AM [facility] MCHC 32.4 32.0 - 37.0 g/dL LAB HEMETOLOGY METHOD 07/29/2024 8:57 AM [facility] RDW 18.1(H) 11.0 - 15.0 % LAB HEMETOLOGY METHOD 07/29/2024 8:57 AM [facility] Platelets 531(H) 130 - 400 K/mcL LAB HEMETOLOGY METHOD 07/29/2024 8:57 AM [facility] MPV 9.7 7.0 - 11.0 FL LAB HEMETOLOGY METHOD 07/29/2024 8:57 AM [facility] NRBC 0.0 <1.0 % LAB HEMETOLOGY METHOD 07/29/2024 8:57 AM [facility] NRBC Absolute 0.00 <0.10 K/mcL LAB HEMETOLOGY METHOD 07/29/2024 8:57 AM [facility] Neutrophils Relative 36.8 % LAB HEMETOLOGY METHOD 07/29/2024 8:57 AM [facility] Lymphocytes Relative 50.5 % LAB HEMETOLOGY METHOD 07/29/2024 8:57 AM [facility] Monocytes Relative 10.2 % LAB HEMETOLOGY METHOD 07/29/2024 8:57 AM [facility] Eosinophils Relative 1.8 % LAB HEMETOLOGY METHOD 07/29/2024 8:57 AM EST [facility] Basophils Relative 0.4 % LAB HEMETOLOGY METHOD 07/29/2024 8:57 AM [facility] Immature Granulocytes Relative 0.3 % LAB HEMETOLOGY METHOD 07/29/2024 8:57 AM [facility] Neutrophils Absolute 2.63 1.50 - 7.00 K/mcL LAB HEMETOLOGY METHOD 07/29/2024 8:57 AM EST [facility] Lymphocytes Absolute 3.61 1.00 - 5.00 K/mcL LAB HEMETOLOGY METHOD 07/29/2024 8:57 AM [facility] Monocytes Absolute 0.73 0.20 - 1.00 K/mcL LAB HEMETOLOGY METHOD 07/29/2024 8:57 AM [facility] Eosinophils Absolute 0.13 0.00 - 0.50 K/mcL LAB HEMETOLOGY METHOD 07/29/2024 8:57 AM EST [facility] Basophils Absolute 0.03 0.00 - 0.20 K/mcL LAB HEMETOLOGY METHOD 07/29/2024 8:57 AM [facility] Immature Granulocytes Absolute 0.02 0.00 - 0.03 K/mcL LAB HEMETOLOGY METHOD 07/29/2024 8:57 AM [facility] Blood Venous blood specimen / Unknown Venipuncture / Unknown 07/29/2024 5:18 AM EST 07/29/2024 7:24 AM EST us Matthew Lynn MD LAB BLOOD ORDERABLES Final Resu lt [facility] [address] [place] [address], * Magnesium (07/29/2024 5:18 AM EST) Only the most recent of2 resultswithin the time period is included. Magnesium 2.2 1.9 - 2.6 mg/dL LAB CHEMISTRY METHOD 07/29/2024 9:23 AM [facility] Blood Venous blood specimen / Unknown Venipuncture / Unknown 07/29/2024 5:18 AM EST 07/29/2024 7:24 AM EST us Matthew Lynn MD LAB BLOOD ORDERABLES Final Resu lt [facility] [address] [place] [address], [place] [phone] * Comprehensive metabolic panel (07/29/2024 5:18 AM EST) Only the most recent of2 resultswithin the time period is included. Sodium 137 133 - 145 mmol/L LAB CHEMISTRY METHOD 07/29/2024 9:23 AM [facility] Potassium 4.8 3.5 - 5.5 mmol/L LAB CHEMISTRY METHOD 07/29/2024 9:23 AM [facility] Chloride 103 96 - 110 mmol/L LAB CHEMISTRY METHOD 07/29/2024 9:23 AM [facility] CO2 30 21 - 32 mmol/L LAB CHEMISTRY METHOD 07/29/2024 9:23 AM [facility] Anion Gap 4 3 - 11 LAB CHEMISTRY METHOD 07/29/2024 9:23 AM [facility] Glucose 84 70 - 100 mg/dL LAB CHEMISTRY METHOD 07/29/2024 9:23 AM [facility] BUN 20 5 - 25 mg/dL LAB CHEMISTRY METHOD 07/29/2024 9:23 AM [facility] Creatinine 1.19 0.70 - 1.30 mg/dL LAB CHEMISTRY METHOD 07/29/2024 9:23 AM [facility] eGFR 67 >=60 mL/min/1. 73m2 LAB CHEMISTRY METHOD 07/29/2024 9:23 AM [facility] Comment:Calculation based on the??Chronic Kidney Disease Epidemiology Collaboration (CKD-EPI) equation refit??without adjustment for race. BUN/Creatinine Ratio 16.8 LAB CHEMISTRY METHOD 07/29/2024 9:23 AM [facility] Calcium 9.0 8.5 - 10.5 mg/dL LAB CHEMISTRY METHOD 07/29/2024 9:23 AM [facility] AST (SGOT) 29 10 - 42 unit/L LAB CHEMISTRY METHOD 07/29/2024 9:23 AM [facility] ALT (SGPT) 42 10 - 60 unit/L LAB CHEMISTRY METHOD 07/29/2024 9:23 AM [facility] Alkaline Phosphatase 109 42 - 121 unit/L LAB CHEMISTRY METHOD 07/29/2024 9:23 AM [facility] Total Protein 6.6 6.0 - 8.0 g/dL LAB CHEMISTRY METHOD 07/29/2024 9:23 AM [facility] Albumin 3.9 3.2 - 5.0 g/dL LAB CHEMISTRY METHOD 07/29/2024 9:23 AM [facility] Total Bilirubin 0.4 0.0 - 1.4 mg/dL LAB CHEMISTRY METHOD 07/29/2024 9:23 AM [facility] Blood Venous blood specimen / Unknown Venipuncture / Unknown 07/29/2024 5:18 AM EST 07/29/2024 7:24 AM EST us Matthew Lynn MD LAB BLOOD ORDERABLES Final Resu lt [facility] [address] [place] [address], * Thyroid stimulating hormone (07/23/2024 5:35 AM EST) TSH 1.96 0.40 - 4.00 mcIU/mL LAB CHEMISTRY METHOD 07/23/2024 5:28 PM EST [facility] Blood Venous blood specimen / Unknown Venipuncture / Unknown 07/23/2024 5:35 AM EST 07/23/2024 9:54 AM EST us Matthew Lynn MD LAB BLOOD ORDERABLES Final Resu lt [facility]) [facility] [address] [place] [address], [place] [phone] * US ABDOMINAL AORTA REAL TIME SCREEN [...] abdominal aortic aneurysm. us Ariana Sidhu MD [facility] US PROCEDURES Final Result * (ABNORMAL) Lipid [...] Relevant to Health [place] [id number] MEDICARE Care Teams Meteorology Instructor Relationship Specialty Start Date End Date Ariana Sidhu MD [address] [place] [address] PCP - General Internal Medicine 04/22/15
--- OUTSIDE RECORDS SUMMARY | 2024-08-19 13:28 | XMS_ITS | Clinical Summary ---
Author Organization [facility] Address [address] [place] [address] Care Team Providers Care Facilities Officer Name Role Phone Beni Moore MD Primary Care Provider [phone] Allergies Active Allergy Reactions Criticality Noted Date [...] age to complete this topic Care Teams Facilities Officer Relationship Specialty Start Date End Date Beni Moore MD PCP - General Internal Medicine 08/09/21
[2024-08-19 15:44] LABS: MANUAL DIFF FLAG NO
[2024-08-19 15:46] LABS: Basophils Percent Auto 0.5 % (0-2); Eosinophils Absolute Auto 0.2 X10*3/uL (0.0-0.4); Eosinophils Percent Auto 2.9 % (0-4); Hematocrit 33.3 % (42.0-52.0); Hemoglobin 10.9 g/dl (14.0-18.0); Imm Gran Abs Auto 0.03 X10*3/uL (0.00-0.03); Imm Gran Pct Auto 0.4 % (0.0-0.4); Lymphocytes Absolute Auto 3.3 X10*3/uL (1.2-4.9); Lymphocytes Percent Auto 44.5 % (20-40); Mean Corpuscular HGB Conc 32.7 g/dl (31.0-36.0); Mean Corpuscular Volume 97.7 fL (80.0-98.0); Monocytes Absolute Auto 0.6 X10*3/uL (0.1-1.2); Monocytes Percent Auto 8.3 % (2-11); Neutrophils Absolute Auto 3.2 x10*3/uL (2.0-8.3); Neutrophils Percent Auto 43.4 % (45-73); Platelet Count 377 X10*3/uL (160-400); Red Blood Count 3.41 X10*6/uL (4.60-5.80); Red Cell Distribution Width 17.8 % (11.0-16.0); White Blood Count 7.3 X10*3/uL (4.8-10.8)
[2024-08-19 15:54] LABS: Appearance Urine Clear; Color Urine Yellow; Glucose Urine UA Negative (Negative); Leukocyte Esterase Urine Moderate (2+) (Negative); Nitrite Urine Negative (Negative); Specific Gravity - Urine 1.015 (1.005-1.025); UMIC TRIGGER UACC YES; Urine Blood Negative (Negative); Urine Ketones Negative (Negative); Urine Protein Negative (Neg-Trace)
[2024-08-19 16:27] LABS: Bacteria Urine None Seen (None Seen); Calcium Oxalate Crystals Urine Present; Hyaline Casts Urine 0-2 /LPF (0-2); Squamous Epithelial Cell Urine 0-2 /HPF (0-2); UACC Culture Trigger YES; WBC Urine >50 /HPF (0-5)
[2024-08-19 17:44] LABS: Alanine Aminotransferase 25 U/L (0-40); Albumin Level 4.3 g/dL (3.5-5.0); Alkaline Phosphatase 147 U/L (39-117); Anion Gap 10 (12-20); Aspartate Amino Transferase 37 U/L (5-37); Bilirubin Total 0.2 mg/dL (0.0-1.0); Blood Urea Nitrogen 12 mg/dL (9-16); Calcium 9.1 mg/dL (8.4-10.2); Carbon Dioxide 27 mmol/L (22-29); Chloride 108 mmol/L (96-108); Cholesterol 112 mg/dL (<200); Estimated Glomerular Filt Rate > 60; Glucose Fasting 90 mg/dL (60-99); HDL Cholesterol 45 mg/dL (>40); LDL Cholesterol Calculated 58 mg/dL (<100); Potassium 4.1 mmol/L (3.3-5.1); Sodium 141 mmol/L (135-145); Total Protein 7.3 g/dL (6.5-8.0); Triglycerides 45 mg/dL (<150)
[2024-08-19 17:59] LABS: TSH reflex Free T4 0.96 uIU/mL (0.32-4.0)
[2024-08-22 18:24] LABS: Alk.Phos Iso. Macrohepatic 0 % (<=0); Alk.Phos Isoenzymes Bone 39 % (28-66); Alk.Phos Isoenzymes Intest 0 % (1-24); Alk.Phos Isoenzymes Liver 61 % (25-69); Alk.Phos Isoenzymes Placental 0 % (<=0); Alk.Phos Isoenzymes Total 132 U/L (35-144)
== END 2024-08-19 12:21 | disposition home or self-care (01) ==
LOC: HO.HMGCX 12:20
PROVIDERS: PCP Nurse Practitioner Family; Visit Provider Nurse Practitioner Family
DX: R19.7 Diarrhea, unspecified (principal); S32.029A Unspecified fracture of second lumbar vertebra, initial encounter for closed fracture; I25.2 Old myocardial infarction; R56.9 Unspecified convulsions; R74.8 Abnormal levels of other serum enzymes
CPT/HCPCS: 36415; 74018; 80053; 80061; 81001; 81003; 84080; 84443; 85025; 87086; 96127; 99212

== ENCOUNTER 2024-08-19 12:20 | Outpatient (AMB) | payer MEDICARE, SELFPAY ==
[2024-08-19 12:23] VITALS: BP 92/60; PULSE 57; RESP 16; TEMP 36.6; O2SAT 95; BMI 21.5
--- NOTE | 2024-08-19 12:23 | A.OFFPC_ITS ---
Vital Signs 08/19/24 12:23 Height 6 ft 1 in Weight 163 lb BMI 21.5 BP 92/60 Blood Pressure Location Rt brachial Position Sitting Respiration 16 Pulse 57 Pulse Source Pulse Oximeter Temp 97.8 F Temp Source Oral Pulse Oximetry (%) 95 Oxygen Delivery Method Room Air Intake Visit Reasons: HDF - PA Intake Note: Pt is here today for Hospital follow up visit. Allergies lisinopril Allergy (Mild, Verified 08/19/24 12:26) Unknown codeine Allergy (Verified 08/19/24 12:27) Unknown Medication List - Last Reconciled 08/19/24 by Leon Godinez, [employer]- aspirin 1 tab PO DAILY atorvastatin 80 mg PO BEDTIME clopidogrel 75 mg PO DAILY finasteride 5 mg PO DAILY lamotrigine 150 mg PO BID mecobalamin (vitamin B12) PO melatonin 10 mg PO BEDTIME metoprolol succinate ER 25 mg PO DAILY quetiapine 100 mg PO BID quetiapine 25 mg PO BID [rollator walker with seat and brakes As directed] sertraline 50 mg PO DAILY tamsulosin 0.4 mg PO DAILY thiamine HCl (vitamin B1) 100 mg PO DAILY [transport wheelchair with footrests As directed] trazodone 50 mg PO BEDTIME Tobacco use date assessed: 08/19/24 Fall risk assessment: 2 + Falls in past year Last assessed Fall Risk: 08/19/24 Dental Screening Dental Screen Date: 08/19/24 Did you have a dental visit in the last 12 months?: No Did you have a dental problem in the last 6 months where you did not have access to dental care?: No Was dental information given to patient?: Patient declined HPI HDF - PA HPI Details Chief Complaint The patient presents for hospital discharge follow-up. History of Present Illness The patient is a 69-year-old male presenting for hospital discharge follow-up. He was previously admitted due to a fall and subsequent alteration in mental status, unearthing a baseline anoxic brain injury which complicates his communication. During hospitalization, he underwent urgent cardiac catheterization on July 09, 2024, due to suspicion of a non-ST Elevation Myocardial Infarction (NSTEMI). Initial evaluations revealed elevated troponin levels, and EKG results showed a right bundle branch block, left anterior fascicular block, and T wave inversion. An echocardiogram indicated a left ventricular ejection fraction (LVEF) of 45-50%, with wall motion abnormalities in the anterolateral and inferolateral territories. Coronary angiography revealed moderate left circumflex artery disease, severe mid left anterior descending (LAD) D2 bifurcation disease, and moderate right coronary artery disease. It was decided to manage the NSTEMI medically with aspirin 81 mg and Pl avix 75 mg daily for 9 to 12 months. Post-catheterization, he was transitioned to a rehabilitation facility, where the family noted a return to baseline cognitive function. Additionally, a fall resulted in acute fractures of the right transverse process of L2 and left transverse processes of L3-5. Neurosurgery evaluated the patient and opted for conservative management, recommending short-term rehabilitation. His hypertension was managed by reducing his losartan dosage in response to low blood pressure. The family reports he is back to his cognitive and physical baseline but is experiencing explosive diarrhea intermittently, alternated with periods of constipation. His has started him on a fiber supplement to manage bowel issues. Social History - The patient is cared for 23/01 by his w yasmeen, who is his primary caregiver. - Former tobacco user. - Experiences difficulty in communicatio n due to baseline anoxic brain injury. Health Maintenance - Aspirin 81 mg daily - Plavix 75 mg daily for 9 to 12 months - Monitoring of blood pressure at home p ost-discontinuation of losartan. Review of Systems - Gastrointestinal: Reports intermittent explosive diarrhea and constipation. Denies abdominal pain, fevers, or chills. Physical Exam General: Cooperative, healthy appearing, comfortable, no acute distress and well developed Orientation: Patient oriented x3, but very much nonverbal due to anoxic brain injury Limitations: No limitations Head: Normal to inspection Ears: Hearing grossly normal bilaterally Nose: Normal external nose present Face and sinus: Normal facial exam Eyes: Appearance normal, both eyes and all related structures Neck: Normal visual inspection and Yes full ROM Respiratory: Slightly diminished, but lungs were fairly clear. Cardiovascular: Regular rate and rhythm. Normal S1 and S2 GI: Diarrhea, explosive diarrhea intermittent, followed by constipation. No abdominal pain. GI panel and abdominal x-ray planned. Skin: No rashes or lesions noted Neuro: Patient oriented x3, but very much nonverbal due to anoxic brain injury Extremities: Normal to inspection, no edema noted Results - Echocardiogram: LVEF 45-50%, wall cristina on abnormalities in anterolateral and inferolateral territories. - Coronary Angiogram: Moderate left circ umflex artery disease, severe mid LAD D2 bifurcation disease, moderate right coronary artery disease. Plan - Discontinue losartan due to stabilizat ion of blood pressure and continued home monitoring. - Obtain a GI panel to further evaluate gastrointestinal symptoms and perform an abdominal x-ray. - Continue aspirin 81 mg and Plavix 75 m g as planned for coronary artery disease management. - Follow-up with cardiology in 10 days. -pt is already on a high dose statin libby l monitor choles panel Patient was informed and verbally consented to the use of an ambient scribe for clinic note documentation during this visit. Discussion Notes I discussed with the patient and his the plan to discontinue losartan as his blood pressure has stabilized, and they will continue to monitor it at home. We reviewed the current medications of aspirin and Plavix for coronary artery disease. I explained the proposed gastrointestinal evaluation, including the GI panel and abdominal x-ray, and discussed the potential for irritable bowel syndrome being a contributing factor to his symptoms. They understand the need for follow-up with cardiology in 10 days. His was very attentive during the discussion and is a committed caregiver. Patient Instructions - Discontinue taking losartan and monito r blood pressure at home regularly. - Continue aspirin 81 mg and Plavix 75 m g daily. - Take fiber supplements as needed for b owel regularity. - Proceed with obtaining the GI panel an d abdominal x-ray as discussed. - Follow up with cardiology in 10 days. - Seek medical attention if symptoms wor sen or new symptoms arise. [facility] Medical History Contusion of left chest wall Emphysema of lung BPH loc w urin obs/LUTS Neurogenic bladder Prostate nodule Ataxia Anoxic brain injury Epilepsy Compulsive behavior disorder Cardiac arrest Surgical History No pertinent past surgical history Social History Household Members: Unknown / Unable to assess Housing: Unknown / Unable to assess Alcohol intake: never Comment: constant conpanion at bedside Patient Tobacco Use Status: Former Tobacco user e-Cigarette/Vaping Use: Never Used Substance Use Type: Marijuana service: No Current occupational status: retired Cognitive needs: No Hearing needs: No Vision needs: No Questionnaire PHQ-9 Over the last 2 weeks, how often have you been bothered by any of the following problems? 1. Little interest or pleasure in doing things: not at all 2. Feeling down, depressed, or hopeless: not at all 3. Trouble falling or staying asleep, or sleeping too much: not at all 4. Feeling tired or having little energy: not at all 5. Poor appetite or overeating: not at all 6. Feeling bad about yourself - or that you are a failure or have let yourself or your family down: not at all 7. Trouble concentrating on things, such as reading the newspaper or watching television: not at all 8. Moving or speaking so slowly that other people could have noticed. Or the opposite - being so fidgety or restless that you have been moving around a lot more than usual: not at all 9. Thoughts that you would be better off or of hurting yourself in some way: not at all Total score: 0 Depression Screening Interpretation: Negative Depression Screening Done: Yes 98833 - PHQ-9 Billing: Yes Source: Developed by Drs. Musa Corado, Brandi Vo, Vinod Leblanc and colleagues, with an educational fani from [employer]. Thrive Questionnaire Date Thrive assessed: 08/19/24 I am a: Patient What is your living situation today?: I have a steady place to live Within the past 12 months, did the food you bought not last and you didn't have the money to get more?: I choose not to answer this question Within the past 12 months, did you worry whether your food would run out before you got money to buy more?: I choose not to answer this question Do you have trouble paying for medicines?: No Do you have trouble getting transportation to medical appointments?: No Do you have trouble paying your heating and electricity bill?: No Do you have trouble taking care of your child, family member or friend?: I choose not to answer this question Do you have trouble with day-to-day activities such as bathing, preparing meals, shopping, managing finances, etc.?: No Are you currently unemployed and looking for a job?: No Are you interested in more education?: No Please select the resources that you would like help with: None Currently or been in a relationship where the following occur: I choose not to answer THRIVE Score: 0 AUDIT C Alcohol Use Questionnaire (AUDIT-C) 1. How often do you have a drink containing alcohol?: Never 3. How often do you have six or more drinks on one occasion?: Never Total Score: 0 CRISTIAN-7 AMB Questionnaire CRISTIAN-7 Date CRISTIAN - 7 assessed: 08/19/24 Feeling nervous, anxious, or on edge: 0 = Not at all Not being able to stop or control worryin = Not at all Worrying too much about different things: 0 = Not at all Trouble relaxin = Not at all Being so restless that it is hard to sit still: 0 = Not at all Becoming easily annoyed or irritable: 0 = Not at all Feeling afraid as if something awful might happen: 1 = Several days Total CRISTIAN-7 score (0-4 normal; 5-9 mild; 10-14 moderate; 15-21 severe): 1 Source: Developed by Drs. Musa Corado, Brandi Vo, Vinod Leblanc and colleagues, with an educational fani from [employer]. CRISTIAN-7 Assessment Billing CRISTIAN-7 Assessment Tool: CRISTIAN-7 Assessment 33848 Physical exam (Primary Care) Vital Signs: Last Vital Signs Temp 97.8 F 08/19/24 12:23 Pulse 57 08/19/24 12:23 Resp 16 08/19/24 12:23 BP 92/60 08/19/24 12:23 Pulse Ox 95 08/19/24 12:23 Oxygen Delivery Method Room Air 08/19/24 12:23 BMI result Body Mass Index 21.5 Tobacco/Smoking Status: Tobacco use Status Tobacco use date assessed 08/19/24 08/19/24 12:36 Patient Tobacco Use Status Former Tobacco user 08/19/24 12:36 e-Cigarette/Vaping Use Never Used 08/19/24 12:36 PHQ-9: PHQ-9 Score PHQ-9: Total score 0 08/19/24 12:36 Depression Screening Interpretation: Negative Thrive Assessment: Date of Thrive Assessment Date Thrive assessed 08/19/24 08/19/24 12:36 Currently or been in a relationship where the following occur: I choose not to answer Coding Level of Care Code Est Pt Level 4 (57816) Diagnoses Diarrhea R19.7 NSTEMI (non-ST elevated myocardial infarction) I21.4 Lumbar transverse process fracture S32.009A Additional Codes CRISTIAN-7 Assessment Billing - CRISTIAN-7 Assessment Tool: CRISTIAN-7 Assessment [id number] ([id number]) PHQ-9 - 34701 - PHQ-9 Billing: Yes ([id number]) Assessment & Plan Assessment & Plan (1) Diarrhea: Code(s): R19.7 - Diarrhea, unspecified Category: Medical (2) Diarrhea: Code(s): R19.7 - Diarrhea, unspecified Category: Medical (3) NSTEMI (non-ST elevated myocardial infarction): Comment: 07/2024, being treated medically Code(s): I21.4 - Non-ST elevation (NSTEMI) myocardial infarction Category: Medical (4) Lumbar transverse process fracture: Comment: right L2 left transverse process L3-L5 Code(s): S32.009A - Unspecified fracture of unspecified lumbar vertebra, initial encounter for closed fracture Category: Medical Plan . Orders: Orders GI Panel Today R19.7 - Diarrhea, unspecified XR abdomen 3V Today R19.7 - Diarrhea, unspecified H pylori Ag Stool Today R19.7 - Diarrhea, unspecified CDiff Gene PCR Today R19.7 - Diarrhea, unspecified Medications: New clopidogrel 75 mg PO DAILY 90 tabs 3RF Discontinued losartan 1/2 tab Discontinued Reason: Doctor's Order 25 mg PO DAILY
--- OUTSIDE RECORDS SUMMARY | 2024-08-19 12:23 | XMS_ITS | Clinical Summary ---
Author Organization [facility] Address [address] [place] [address] Care Team Providers Care Pocket Secretary Assembler Name Role Phone Beni Moore MD Primary Care Provider [phone] Allergies Active Allergy Reactions Criticality Noted Date [...] age to complete this topic Care Teams Pocket Secretary Assembler Relationship Specialty Start Date End Date Beni Moore MD PCP - General Internal Medicine 08/09/21
--- OUTSIDE RECORDS SUMMARY | 2024-08-19 12:23 | XMS_ITS | Clinical Summary ---
Author Organization [facility] [address] [place] [address] [place] [phone] Phone Care Team Providers Care Emergency Management Coordinator Name Role Phone Ariana Sidhu MD Primary Care Provider [phone] Allergies Active Allergy Reactions Criticality Noted Date Comments Codeine Nausea And Vomiting 08/12/2014 Lisinopril Cough 08/08/2018 Other Reaction(s): Other (See Comments) Medications aspirin 81 mg chewable tablet Chew 1 tablet (81 mg total) 1 (one) time each day. 03/31/2021 Active atorvastatin (LIPITOR) 80 mg tablet Take 80 mg by mouth daily. Active cholecalciferol, vitamin D3, 50 mcg (2,000 unit) tablet,chewable Take 50 mcg by mouth daily. 08/06/2021 Active cloNIDine (SPLLODNX-OJI-1) 0.1 mg/[address] 0.1 mg onto [...] Department Care Team Description 07/29/2024 Lab Requisition [facility] - Main Lab [address] [facility] [place] [address] Matthew Lynn MD Encounter for other general examination 07/23/2024 Lab Requisition [facility] - Main Lab [address] [place] [address] Matthew Lynn MD Encounter for [...] Surgery Date Site/Laterality Comments OTHER SURGICAL HISTORY 1993 Left PROCEDURE: HISTORICAL ARM SURGERY; COMMENT: Repair after saw injury Medical History Medical History Date Comments History of dental problems DX:Hi story of dental problems Erectile dysfunction 08/08/2018 DX:Erectile dysfunction History of heart attack DX:Histo ry of heart attack Brain injury (CMS/HCC) DX:Brain injury (HCC); COMMENT: Due to delayed response after [place] Fluctuation of weight DX:Fluctua tion of weight [...] at Not on file Legal Sex Male 11:59 PM EST Gender Identity Not on file Sexual [...] 06/09/2022 Falls Risk Assessment 2022 COVID-19 Vaccine (2023-2 5 season) 2024 08/23/2021, 10/20/2020, 09/29/2020 Influenza Vaccine (#1) 2024 , 03/22/2021 Hypertension/CHF/CAD Annual BMP Blood Test 07/29/2025 07/29/2024, 07/23/2024, 03/10/2022 Cholesterol Screening (Lipid Panel) 09/09/2027 09/08/2022 DTaP,Tdap,and Td Vaccines (3 - Td or Tdap) 08/08/2028 08/08/2018, 04/28/2012 Hepatitis C Screening Completed 11/03/2016 Pneumococcal Vaccine: 50+ Years Completed 09/08/2022 Abdominal Aortic Aneurysm (AAA) [...] patient's age to complete this topic Meningococcal B Vacine Aged Out No lo nger eligible based on patient's age to complete [...] LAB HEMETOLOGY METHOD 07/29/2024 8:57 AM EST [facility] LAB RBC 3.40(L) 4.50 - 5.50 M/mcL LAB HEMETOLOGY METHOD 07/29/2024 8:57 AM EST [facility] LAB Hemoglobin 10.7(L) 13.5 - 17.5 g/dL LAB HEMETOLOGY METHOD 07/29/2024 8:57 AM EST [facility] LAB Hematocrit 33.0(L) 42.0 - 54.0 % LAB HEMETOLOGY METHOD 07/29/2024 8:57 AM [facility] LAB MCV 98.2(H) 79.0 - 98.0 FL LAB HEMETOLOGY METHOD 07/29/2024 8:57 AM [facility] LAB MCH 31.8 27.0 - 32.0 pcg LAB HEMETOLOGY METHOD 07/29/2024 8:57 AM [facility] LAB MCHC 32.4 32.0 - 37.0 g/dL LAB HEMETOLOGY METHOD 07/29/2024 8:57 AM [facility] LAB RDW 18.1(H) 11.0 - 15.0 % LAB HEMETOLOGY METHOD 07/29/2024 8:57 AM [facility] LAB Platelets 531(H) 130 - 400 K/mcL LAB HEMETOLOGY METHOD 07/29/2024 8:57 AM [facility] LAB MPV 9.7 7.0 - 11.0 FL LAB HEMETOLOGY METHOD 07/29/2024 8:57 AM [facility] LAB NRBC 0.0 <1.0 % LAB HEMETOLOGY METHOD 07/29/2024 8:57 AM [facility] LAB NRBC Absolute 0.00 <0.10 K/mcL LAB HEMETOLOGY METHOD 07/29/2024 8:57 AM [facility] LAB Neutrophils Relative 36.8 % LAB HEMETOLOGY METHOD 07/29/2024 8:57 AM [facility] Lymphocytes Relative 50.5 % LAB HEMETOLOGY METHOD 07/29/2024 8:57 AM [facility] Monocytes Relative 10.2 % LAB HEMETOLOGY METHOD 07/29/2024 8:57 AM [facility] Eosinophils Relative 1.8 % LAB HEMETOLOGY METHOD 07/29/2024 8:57 AM EST [facility] Basophils Relative 0.4 % LAB HEMETOLOGY METHOD 07/29/2024 8:57 AM [facility] Immature Granulocytes Relative 0.3 % LAB HEMETOLOGY METHOD 07/29/2024 8:57 AM [facility] LAB Neutrophils Absolute 2.63 1.50 - 7.00 K/mcL LAB HEMETOLOGY METHOD 07/29/2024 8:57 AM EST [facility] LAB Lymphocytes Absolute 3.61 1.00 - 5.00 K/mcL LAB HEMETOLOGY METHOD 07/29/2024 8:57 AM [facility] Monocytes Absolute 0.73 0.20 - 1.00 K/mcL LAB HEMETOLOGY METHOD 07/29/2024 8:57 AM [facility] Eosinophils Absolute 0.13 0.00 - 0.50 K/mcL LAB HEMETOLOGY METHOD 07/29/2024 8:57 AM EST [facility] Basophils Absolute 0.03 0.00 - 0.20 K/mcL LAB HEMETOLOGY METHOD 07/29/2024 8:57 AM [facility] LAB Immature Granulocytes Absolute 0.02 0.00 - 0.03 K/mcL LAB HEMETOLOGY METHOD 07/29/2024 8:57 AM [facility] LAB Blood Venous blood specimen / Unknown Venipuncture / Unknown 07/29/2024 5:18 AM EST 07/29/2024 7:24 AM EST us Matthew Lynn MD LAB BLOOD ORDERABLES Final Resu lt [facility] LAB [address] [place] [address], * Magnesium (07/29/2024 5:18 AM EST) Only the most recent of2 resultswithin the time period is included. Magnesium 2.2 1.9 - 2.6 mg/dL LAB CHEMISTRY METHOD 07/29/2024 9:23 AM [facility] LAB Blood Venous blood specimen / Unknown Venipuncture / Unknown 07/29/2024 5:18 AM EST 07/29/2024 7:24 AM EST us Matthew Lynn MD LAB BLOOD ORDERABLES Final Resu lt [facility] LAB [address] [place] [address], [place] [phone] * Comprehensive metabolic panel (07/29/2024 5:18 AM EST) Only the most recent of2 resultswithin the time period is included. Sodium 137 133 - 145 mmol/L LAB CHEMISTRY METHOD 07/29/2024 9:23 AM [facility] Potassium 4.8 3.5 - 5.5 mmol/L LAB CHEMISTRY METHOD 07/29/2024 9:23 AM [facility] Chloride 103 96 - 110 mmol/L LAB CHEMISTRY METHOD 07/29/2024 9:23 AM [facility] CO2 30 21 - 32 mmol/L LAB CHEMISTRY METHOD 07/29/2024 9:23 AM [facility] Anion Gap 4 3 - 11 LAB CHEMISTRY METHOD 07/29/2024 9:23 AM [facility] Glucose 84 70 - 100 mg/dL LAB CHEMISTRY METHOD 07/29/2024 9:23 AM [facility] BUN 20 5 - 25 mg/dL LAB CHEMISTRY METHOD 07/29/2024 9:23 AM [facility] Creatinine 1.19 0.70 - 1.30 mg/dL LAB CHEMISTRY METHOD 07/29/2024 9:23 AM [facility] LAB eGFR 67 >=60 mL/min/1. 73m2 LAB CHEMISTRY METHOD 07/29/2024 9:23 AM [facility] LAB Comment:Calculation based on the??Chronic Kidney Disease Epidemiology Collaboration (CKD-EPI) equation refit??without adjustment for race. BUN/Creatinine Ratio 16.8 LAB CHEMISTRY METHOD 07/29/2024 9:23 AM [facility] Calcium 9.0 8.5 - 10.5 mg/dL LAB CHEMISTRY METHOD 07/29/2024 9:23 AM [facility] LAB AST (SGOT) 29 10 - 42 unit/L LAB CHEMISTRY METHOD 07/29/2024 9:23 AM [facility] ALT (SGPT) 42 10 - 60 unit/L LAB CHEMISTRY METHOD 07/29/2024 9:23 AM [facility] Alkaline Phosphatase 109 42 - 121 unit/L LAB CHEMISTRY METHOD 07/29/2024 9:23 AM [facility] Total Protein 6.6 6.0 - 8.0 g/dL LAB CHEMISTRY METHOD 07/29/2024 9:23 AM [facility] Albumin 3.9 3.2 - 5.0 g/dL LAB CHEMISTRY METHOD 07/29/2024 9:23 AM [facility] Total Bilirubin 0.4 0.0 - 1.4 mg/dL LAB CHEMISTRY METHOD 07/29/2024 9:23 AM [facility] LAB Blood Venous blood specimen / Unknown Venipuncture / Unknown 07/29/2024 5:18 AM EST 07/29/2024 7:24 AM EST us Matthew Lynn MD LAB BLOOD ORDERABLES Final Resu lt [facility] [address] [place] [address], * Thyroid stimulating hormone (07/23/2024 5:35 AM EST) TSH 1.96 0.40 - 4.00 mcIU/mL LAB CHEMISTRY METHOD 07/23/2024 5:28 PM EST [facility] Blood Venous blood specimen / Unknown Venipuncture / Unknown 07/23/2024 5:35 AM EST 07/23/2024 9:54 AM EST us Matthew Lynn MD LAB BLOOD ORDERABLES Final Resu lt [facility]) [facility] LAB [address] [place] [address], [place] [phone] * US ABDOMINAL AORTA REAL TIME SCREEN [...] Negative screening examination for abdominal aortic aneurysm. us Ariana Sidhu MD [facility] US PROCEDURES Final Result * (ABNORMAL) Lipid panel (09/08/2022) LDL/HDL Ratio 3 0 - 4 Triglycerides 52 0 - 150 mg/dL Cholesterol 90 0 - 200 mg/dL HDL 36(A) >=40 mg/dL LDL Cholesterol 44 0 - 100 mg/dL Blood Venous blood specimen / Unknown Historical Provider LAB BLOOD ORDERABLES Maggie l Result * Hepatitis C Screening (11/03/2016) Hepatitis C Screening ABSTRACTED Historical Provider HEALTH MAINTENANCE Final Result from Last 3 Months or Most Recently Relevant to Health [place] [id number] MEDICARE Care Teams Emergency Management Coordinator Relationship Specialty Start Date End Date Ariana Sidhu MD [address] [place] [address] PCP - General Internal Medicine 04/22/15
--- OUTSIDE RECORDS SUMMARY | 2024-08-19 12:23 | XMS_ITS | Clinical Summary ---
Author Organization [facility] Facility Address [address] [address] Care Team Providers Care Sales Office Coordinator Name Role Phone Unavailable Primary Care Provider [...] patient's age to complete this topic Insurance [facility] [place] [id number] [facility]
--- OUTSIDE RECORDS SUMMARY | 2024-08-19 12:23 | XMS_ITS | Encounter Summary ---
Author Organization [facility] Address [address] [place] [address] Care Team Providers Care Food And Beverage Controller Name Role Phone Ariana Sidhu MD Primary Care Provider Encounter Details Date Type Department Care Team (Late st Contact Info) Description 07/29/2024 Lab Requisition [facility] - Main Lab [address] [facility] [employer] [address] Matthew Lynn MD [address] [place] [phone] Encounter for other general examination Social History [...] CBC auto differential (07/29/2024 5:18 AM EST) [facility] WBC 7.2 4.8 - 10.8 K/mcL LAB HEMETOLOGY METHOD 07/29/2024 8:57 AM [facility] LAB RBC 3.40(L) 4.50 - 5.50 M/mcL LAB HEMETOLOGY METHOD 07/29/2024 8:57 AM [facility] LAB Hemoglobin 10.7(L) 13.5 - 17.5 g/dL LAB HEMETOLOGY METHOD 07/29/2024 8:57 AM [facility] LAB Hematocrit 33.0(L) 42.0 - 54.0 % LAB HEMETOLOGY METHOD 07/29/2024 8:57 AM [facility] LAB MCV 98.2(H) 79.0 - 98.0 FL LAB HEMETOLOGY METHOD 07/29/2024 8:57 AM [facility] LAB MCH 31.8 27.0 - 32.0 pcg LAB HEMETOLOGY METHOD 07/29/2024 8:57 AM [facility] LAB MCHC 32.4 32.0 - 37.0 g/dL LAB HEMETOLOGY METHOD 07/29/2024 8:57 AM [facility] LAB RDW 18.1(H) 11.0 - 15.0 % LAB HEMETOLOGY METHOD 07/29/2024 8:57 AM [facility] LAB Platelets 531(H) 130 - 400 K/mcL LAB HEMETOLOGY METHOD 07/29/2024 8:57 AM [facility] LAB MPV 9.7 7.0 - 11.0 FL LAB HEMETOLOGY METHOD 07/29/2024 8:57 AM [facility] LAB NRBC 0.0 <1.0 % LAB HEMETOLOGY METHOD 07/29/2024 8:57 AM [facility] LAB NRBC Absolute 0.00 <0.10 K/mcL LAB HEMETOLOGY METHOD 07/29/2024 8:57 AM [facility] LAB Neutrophils Relative 36.8 % LAB HEMETOLOGY METHOD 07/29/2024 8:57 AM [facility] LAB Lymphocytes Relative 50.5 % LAB HEMETOLOGY METHOD 07/29/2024 8:57 AM [facility] LAB Monocytes Relative 10.2 % LAB HEMETOLOGY METHOD 07/29/2024 8:57 AM [facility] LAB Eosinophils Relative 1.8 % LAB HEMETOLOGY METHOD 07/29/2024 8:57 AM [facility] LAB Basophils Relative 0.4 % LAB HEMETOLOGY METHOD 07/29/2024 8:57 AM [facility] LAB Immature Granulocytes Relative 0.3 % LAB HEMETOLOGY METHOD 07/29/2024 8:57 AM [facility] LAB Neutrophils Absolute 2.63 1.50 - 7.00 K/mcL LAB HEMETOLOGY METHOD 07/29/2024 8:57 AM [facility] LAB Lymphocytes Absolute 3.61 1.00 - 5.00 K/mcL LAB HEMETOLOGY METHOD 07/29/2024 8:57 AM [facility] LAB Monocytes Absolute 0.73 0.20 - 1.00 K/mcL LAB HEMETOLOGY METHOD 07/29/2024 8:57 AM [facility] LAB Eosinophils Absolute 0.13 0.00 - 0.50 K/mcL LAB HEMETOLOGY METHOD 07/29/2024 8:57 AM [facility] LAB Basophils Absolute 0.03 0.00 - 0.20 K/mcL LAB HEMETOLOGY METHOD 07/29/2024 8:57 AM [facility] LAB Immature Granulocytes Absolute 0.02 0.00 - 0.03 K/mcL LAB HEMETOLOGY METHOD 07/29/2024 8:57 AM [facility] LAB Blood Venous blood specimen / Unknown Venipuncture / Unknown 07/29/2024 5:18 AM EST 07/29/2024 7:24 AM EST us Matthew Lynn MD LAB BLOOD ORDERABLES Final Resu lt [facility] [address] [place] [address], [place] [phone] * Magnesium (07/29/2024 5:18 AM EST) Pathologist [facility] Magnesium 2.2 1.9 - 2.6 mg/dL LAB CHEMISTRY METHOD 07/29/2024 9:[address] [facility] LAB Blood Venous blood specimen / Unknown Venipuncture / Unknown 07/29/2024 5:18 AM EST 07/29/2024 7:24 AM EST us Matthew Lynn MD LAB BLOOD ORDERABLES Final Resu lt [facility] [address] [place] [address], [place] [phone] * Comprehensive metabolic panel (07/29/2024 5:18 AM EST) Pathologist [facility] Sodium 137 133 - 145 mmol/L LAB CHEMISTRY METHOD 07/29/2024 9:23 AM [facility] Potassium 4.8 3.5 - 5.5 mmol/L LAB CHEMISTRY METHOD 07/29/2024 9:[address] [facility] Chloride 103 96 - 110 mmol/L LAB CHEMISTRY METHOD 07/29/2024 9:[address] [facility] LAB CO2 30 21 - 32 mmol/L LAB CHEMISTRY METHOD 07/29/2024 9:23 AM [facility] LAB Anion Gap 4 3 - 11 LAB CHEMISTRY METHOD 07/29/2024 9:23 AM [facility] LAB Glucose 84 70 - 100 mg/dL LAB CHEMISTRY METHOD 07/29/2024 9:23 AM [facility] BUN 20 5 - 25 mg/dL LAB CHEMISTRY METHOD 07/29/2024 9:23 AM [facility] LAB Creatinine 1.19 0.70 - 1.30 mg/dL LAB CHEMISTRY METHOD 07/29/2024 9:23 AM [facility] LAB eGFR 67 >=60 mL/min/1. 73m2 LAB CHEMISTRY METHOD 07/29/2024 9:23 AM [facility] LAB Comment:Calculation based on the??Chronic Kidney Disease Epidemiology Collaboration (CKD-EPI) equation refit??without adjustment for race. BUN/Creatinine Ratio 16.8 LAB CHEMISTRY METHOD 07/29/2024 9:23 AM [facility] LAB Calcium 9.0 8.5 - 10.5 mg/dL LAB CHEMISTRY METHOD 07/29/2024 9:23 AM [facility] LAB AST (SGOT) 29 10 - 42 unit/L LAB CHEMISTRY METHOD 07/29/2024 9:23 AM [facility] LAB ALT (SGPT) 42 10 - 60 unit/L LAB CHEMISTRY METHOD 07/29/2024 9:23 AM [facility] LAB Alkaline Phosphatase 109 42 - 121 unit/L LAB CHEMISTRY METHOD 07/29/2024 9:23 AM [facility] Total Protein 6.6 6.0 - 8.0 g/dL LAB CHEMISTRY METHOD 07/29/2024 9:23 AM [facility] LAB Albumin 3.9 3.2 - 5.0 g/dL LAB CHEMISTRY METHOD 07/29/2024 9:23 AM [facility] LAB Total Bilirubin 0.4 0.0 - 1.4 mg/dL LAB CHEMISTRY METHOD 07/29/2024 9:23 AM [facility] LAB Blood Venous blood specimen / Unknown Venipuncture / Unknown 07/29/2024 5:18 AM EST 07/29/2024 7:24 AM EST us Matthew Lynn MD LAB BLOOD ORDERABLES Final Resu lt [facility] ([facility] [address] [place] [address], documented in this encounter Visit Diagnoses Diagnosis Encounter for other general examination documented in this encounter Care Teams Food And Beverage Controller Relationship Specialty Start Date End Date Ariana Sidhu MD [address] [place] [address] PCP - General Internal Medicine 04/22/15 documented as of this encounter
== END 2024-08-19 14:08 | disposition home or self-care (01) ==
PROVIDERS: PCP Nurse Practitioner Family; Visit Provider Nurse Practitioner Family
DX: R19.7 Diarrhea, unspecified (principal); I25.2 Old myocardial infarction; S32.009A Unspecified fracture of unspecified lumbar vertebra, initial encounter for closed fracture

== ENCOUNTER → 2024-08-19 13:31 | Outpatient (BNV) | payer MEDICARE, SELFPAY | PROVIDERS: PCP Nurse Practitioner Family; Visit Provider Radiology Diagnostic Radiology | DX: R19.7 Diarrhea, unspecified (principal) | CPT/HCPCS: 74018 ==

== ENCOUNTER 2024-09-12 14:38 | Outpatient (REF) | payer MEDICARE, SELFPAY ==
[2024-09-12 16:53] LABS: Urine Cytology See Pathology rpt
--- OUTSIDE RECORDS SUMMARY | 2024-09-12 19:12 | XMS_ITS | Clinical Summary ---
Author Organization [facility] Facility Address [address] [address] Care Team Providers Care Steel Pourer Helper Name Role Phone Unavailable Primary Care Provider [...] patient's age to complete this topic Insurance [facility] [place] [id number] [facility]
--- OUTSIDE RECORDS SUMMARY | 2024-09-12 19:12 | XMS_ITS | Encounter Summary ---
Author Organization [facility] Address [address] [place] [address] Care Team Providers Care Mortgage Clerk Name Role Phone Ariana Sidhu MD Primary Care Provider [phone] Encounter Details Date Type Department Care Team (Late st Contact Info) Description 07/23/2024 Lab Requisition [facility] - Main Lab 299 [facility] [place] [address] Matthew Lynn MD [address] [place] [phone] Encounter for other general examination Social History [...] Thyroid stimulating hormone (07/23/2024 5:35 AM EST) [facility] TSH 1.96 0.40 - 4.00 mcIU/mL LAB CHEMISTRY METHOD 07/23/2024 5:28 PM EST [facility] Blood Venous blood specimen / Unknown Venipuncture / Unknown 07/23/2024 5:35 AM EST 07/23/2024 9:54 AM EST us Matthew Lynn MD LAB BLOOD ORDERABLES Final Resu lt [facility] [address] [place] [address], [place] [phone] * (ABNORMAL) CBC auto differential (07/23/2024 5:35 AM EST) [facility] WBC 7.1 4.8 - 10.8 K/mcL LAB HEMETOLOGY METHOD 07/23/2024 10:[address] [facility] RBC 3.20(L) 4.50 - 5.50 M/mcL LAB HEMETOLOGY METHOD 07/23/2024 10:[address] [facility] Hemoglobin 10.3(L) 13.5 - 17.5 g/dL LAB HEMETOLOGY METHOD 07/23/2024 10:[address] [facility] Hematocrit 31.0(L) 42.0 - 54.0 % LAB HEMETOLOGY METHOD 07/23/2024 10:[address] [facility] MCV 97.8 79.0 - 98.0 FL LAB HEMETOLOGY METHOD 07/23/2024 10:[address] [facility] MCH 32.5(H) 27.0 - 32.0 pcg LAB HEMETOLOGY METHOD 07/23/2024 10:[address] [facility] MCHC 33.2 32.0 - 37.0 g/dL LAB HEMETOLOGY METHOD 07/23/2024 10:[address] [facility] RDW 17.6(H) 11.0 - 15.0 % LAB HEMETOLOGY METHOD 07/23/2024 10:[address] [facility] Platelets 554(H) 130 - 400 K/mcL LAB HEMETOLOGY METHOD 07/23/2024 10:[address] [facility] MPV 10.0 7.0 - 11.0 FL LAB HEMETOLOGY METHOD 07/23/2024 10:[address] [facility] NRBC 0.0 <1.0 % LAB HEMETOLOGY METHOD 07/23/2024 10:[address] [facility] NRBC Absolute 0.00 <0.10 K/mcL LAB HEMETOLOGY METHOD 07/23/2024 10:[address] [facility] Neutrophils Relative 39.3 % LAB HEMETOLOGY METHOD 07/23/2024 10:[address] [facility] Lymphocytes Relative 44.8 % LAB HEMETOLOGY METHOD 07/23/2024 10:[address] [facility] Monocytes Relative 13.1 % LAB HEMETOLOGY METHOD 07/23/2024 10:[address] [facility] Eosinophils Relative 1.6 % LAB HEMETOLOGY METHOD 07/23/2024 10:[address] [facility] Basophils Relative 0.6 % LAB HEMETOLOGY METHOD 07/23/2024 10:[address] [facility] Immature Granulocytes Relative 0.6 % LAB HEMETOLOGY METHOD 07/23/2024 10:[address] [facility] Neutrophils Absolute 2.79 1.50 - 7.00 K/mcL LAB HEMETOLOGY METHOD 07/23/2024 10:[address] [facility] Lymphocytes Absolute 3.17 1.00 - 5.00 K/mcL LAB HEMETOLOGY METHOD 07/23/2024 10:44 AM EST [facility] Monocytes Absolute 0.93 0.20 - 1.00 K/[facility] LAB HEMETOLOGY METHOD 07/23/2024 10:44 AM EST [facility] Eosinophils Absolute 0.11 0.00 - 0.50 K/[facility] LAB HEMETOLOGY METHOD 07/23/2024 10:44 AM EST [facility] Basophils Absolute 0.04 0.00 - 0.20 K/[facility] LAB HEMETOLOGY METHOD 07/23/2024 10:44 AM EST [facility] Immature Granulocytes Absolute 0.04(H) 0.00 - 0.03 K/[facility] LAB HEMETOLOGY METHOD 07/23/2024 10:44 AM EST [facility] Blood Venous blood specimen / Unknown Venipuncture / Unknown 07/23/2024 5:35 AM EST 07/23/2024 9:54 AM EST us Matthew Lynn MD LAB BLOOD ORDERABLES Final Resu lt Performing Organization Address City/[facility]/ZIP Co de Phone Number [facility] [address] [place] [address], [place] [phone] * Magnesium (07/23/2024 5:35 AM EST) Magnesium 2.3 1.9 - 2.6 mg/dL LAB CHEMISTRY METHOD 07/23/2024 11:15 AM EST [facility] Blood Venous blood specimen / Unknown Venipuncture / Unknown 07/23/2024 5:35 AM EST 07/23/2024 9:54 AM EST us Matthew Lynn MD LAB BLOOD ORDERABLES Final Resu lt [facility] [address] [place] [address], [place] [phone] * (ABNORMAL) Comprehensive metabolic panel (07/23/2024 5:35 AM EST) Sodium 135 133 - 145 mmol/L LAB CHEMISTRY METHOD 07/23/2024 11:[address] [facility] Potassium 4.5 3.5 - 5.5 mmol/L LAB CHEMISTRY METHOD 07/23/2024 11:[address] [facility] Chloride 103 96 - 110 mmol/L LAB CHEMISTRY METHOD 07/23/2024 11:[address] [facility] CO2 25 21 - 32 mmol/L LAB CHEMISTRY METHOD 07/23/2024 11:[address] [facility] Anion Gap 7 3 - 11 LAB CHEMISTRY METHOD 07/23/2024 11:[address] [facility] Glucose 81 70 - 100 mg/dL LAB CHEMISTRY METHOD 07/23/2024 11:[address] [facility] BUN 19 5 - 25 mg/dL LAB CHEMISTRY METHOD 07/23/2024 11:[address] [facility] Creatinine 1.19 0.70 - 1.30 mg/dL LAB CHEMISTRY METHOD 07/23/2024 11:[address] [facility] eGFR 67 >=60 mL/min/1. 73m2 LAB CHEMISTRY METHOD 07/23/2024 11:[address] [facility] Comment:Calculation based on the??Chronic Kidney Disease Epidemiology Collaboration (CKD-EPI) equation refit??without adjustment for race. BUN/Creatinine Ratio 16.0 LAB CHEMISTRY METHOD 07/23/2024 11:[address] [facility] Calcium 8.8 8.5 - 10.5 mg/dL LAB CHEMISTRY METHOD 07/23/2024 11:[address] [facility] AST (SGOT) 66(H) 10 - 42 unit/L LAB CHEMISTRY METHOD 07/23/2024 11:[address] [facility] ALT (SGPT) 74(H) 10 - 60 unit/L LAB CHEMISTRY METHOD 07/23/2024 11:15 AM EST [facility] Alkaline Phosphatase 120 42 - 121 unit/L LAB CHEMISTRY METHOD 07/23/2024 11:[address] [facility] Total Protein 6.9 6.0 - 8.0 g/dL LAB CHEMISTRY METHOD 07/23/2024 11:15 AM EST [facility] Albumin 3.8 3.2 - 5.0 g/dL LAB CHEMISTRY METHOD 07/23/2024 11:[address] [facility] Total Bilirubin 0.4 0.0 - 1.4 mg/dL LAB CHEMISTRY METHOD 07/23/2024 11:[address] [facility] Blood Venous blood specimen / Unknown Venipuncture / Unknown 07/23/2024 5:35 AM EST 07/23/2024 9:54 AM EST us Matthew Lynn MD LAB BLOOD ORDERABLES Final Resu lt [facility] [address] [place] [address], documented in this encounter Visit Diagnoses Diagnosis Encounter for other general examination documented in this encounter Care Teams Mortgage Clerk Relationship Specialty Start Date End Date Ariana Sidhu MD [address] [place] [address] PCP - General Internal Medicine 04/22/15 documented as of this encounter
--- OUTSIDE RECORDS SUMMARY | 2024-09-12 19:12 | XMS_ITS | Clinical Summary ---
Author Organization [facility] [address] [place] [address] [place] [phone] Phone Care Team Providers Care Stucco Mason Name Role Phone Ariana Sidhu MD Primary Care Provider [phone] Allergies Active Allergy Reactions Criticality Noted Date [...] mcg by mouth daily. 08/06/2021 Active cloNIDine ([id number]) 0.1 mg/[address] 0.1 mg onto [...] Department Care Team Description 07/29/2024 Lab Requisition [facility] - Main Lab [address] [facility] [place] [address] Matthew Lynn MD Encounter for other general examination 07/23/2024 Lab Requisition [facility] - Main Lab [address] [place] [address] Matthew Lynn MD Encounter for [...] LAB HEMETOLOGY METHOD 07/29/2024 8:57 AM EST [facility] LAB RBC 3.40(L) 4.50 - 5.50 M/mcL LAB HEMETOLOGY METHOD 07/29/2024 8:57 AM EST [facility] LAB Hemoglobin 10.7(L) 13.5 - 17.5 g/dL LAB HEMETOLOGY METHOD 07/29/2024 8:57 AM EST [facility] LAB Hematocrit 33.0(L) 42.0 - 54.0 % LAB HEMETOLOGY METHOD 07/29/2024 8:57 AM [facility] LAB MCV 98.2(H) 79.0 - 98.0 FL LAB HEMETOLOGY METHOD 07/29/2024 8:57 AM [facility] LAB MCH 31.8 27.0 - 32.0 pcg LAB HEMETOLOGY METHOD 07/29/2024 8:57 AM [facility] LAB MCHC 32.4 32.0 - 37.0 g/dL LAB HEMETOLOGY METHOD 07/29/2024 8:57 AM [facility] LAB RDW 18.1(H) 11.0 - 15.0 % LAB HEMETOLOGY METHOD 07/29/2024 8:57 AM [facility] LAB Platelets 531(H) 130 - 400 K/mcL LAB HEMETOLOGY METHOD 07/29/2024 8:57 AM [facility] LAB MPV 9.7 7.0 - 11.0 FL LAB HEMETOLOGY METHOD 07/29/2024 8:57 AM [facility] LAB NRBC 0.0 <1.0 % LAB HEMETOLOGY METHOD 07/29/2024 8:57 AM [facility] LAB NRBC Absolute 0.00 <0.10 K/mcL LAB HEMETOLOGY METHOD 07/29/2024 8:57 AM [facility] LAB Neutrophils Relative 36.8 % LAB HEMETOLOGY METHOD 07/29/2024 8:57 AM [facility] LAB Lymphocytes Relative 50.5 % LAB HEMETOLOGY METHOD 07/29/2024 8:57 AM [facility] LAB Monocytes Relative 10.2 % LAB HEMETOLOGY METHOD 07/29/2024 8:57 AM [facility] LAB Eosinophils Relative 1.8 % LAB HEMETOLOGY METHOD 07/29/2024 8:57 AM EST [facility] LAB Basophils Relative 0.4 % LAB HEMETOLOGY METHOD 07/29/2024 8:57 AM [facility] LAB Immature Granulocytes Relative 0.3 % LAB HEMETOLOGY METHOD 07/29/2024 8:57 AM [facility] LAB Neutrophils Absolute 2.63 1.50 - 7.00 K/mcL LAB HEMETOLOGY METHOD 07/29/2024 8:57 AM EST [facility] LAB Lymphocytes Absolute 3.61 1.00 - 5.00 K/mcL LAB HEMETOLOGY METHOD 07/29/2024 8:57 AM [facility] LAB Monocytes Absolute 0.73 0.20 - 1.00 K/mcL LAB HEMETOLOGY METHOD 07/29/2024 8:57 AM [facility] LAB Eosinophils Absolute 0.13 0.00 - 0.50 K/mcL LAB HEMETOLOGY METHOD 07/29/2024 8:57 AM EST [facility] LAB Basophils Absolute 0.03 0.00 - 0.20 K/mcL LAB HEMETOLOGY METHOD 07/29/2024 8:57 AM [facility] LAB Immature Granulocytes Absolute 0.02 0.00 - 0.03 K/mcL LAB HEMETOLOGY METHOD 07/29/2024 8:57 AM [facility] LAB Blood Venous blood specimen / Unknown Venipuncture / Unknown 07/29/2024 5:18 AM EST 07/29/2024 7:24 AM EST us Matthew Lynn MD LAB BLOOD ORDERABLES Final Resu lt [facility] LAB [address] [place] [address], * Magnesium (07/29/2024 5:18 AM EST) Only the most recent of2 resultswithin the time period is included. Magnesium 2.2 1.9 - 2.6 mg/dL LAB CHEMISTRY METHOD 07/29/2024 9:23 AM [facility] LAB Blood Venous blood specimen / Unknown Venipuncture / Unknown 07/29/2024 5:18 AM EST 07/29/2024 7:24 AM EST us Matthew Lynn MD LAB BLOOD ORDERABLES Final Resu lt [facility] LAB [address] [place] [address], [place] [phone] * Comprehensive metabolic panel (07/29/2024 5:18 AM EST) Only the most recent of2 resultswithin the time period is included. Sodium 137 133 - 145 mmol/L LAB CHEMISTRY METHOD 07/29/2024 9:23 AM [facility] LAB Potassium 4.8 3.5 - 5.5 mmol/L LAB CHEMISTRY METHOD 07/29/2024 9:23 AM [facility] LAB Chloride 103 96 - 110 mmol/L LAB CHEMISTRY METHOD 07/29/2024 9:23 AM [facility] LAB CO2 30 21 - 32 mmol/L LAB CHEMISTRY METHOD 07/29/2024 9:23 AM [facility] LAB Anion Gap 4 3 - 11 LAB CHEMISTRY METHOD 07/29/2024 9:23 AM [facility] LAB Glucose 84 70 - 100 mg/dL LAB CHEMISTRY METHOD 07/29/2024 9:23 AM [facility] LAB BUN 20 5 - 25 mg/dL LAB CHEMISTRY METHOD 07/29/2024 9:23 AM [facility] LAB Creatinine 1.19 0.70 - 1.30 mg/dL LAB CHEMISTRY METHOD 07/29/2024 9:23 AM [facility] LAB eGFR 67 >=60 mL/min/1. 73m2 LAB CHEMISTRY METHOD 07/29/2024 9:23 AM [facility] LAB Comment:Calculation based on the??Chronic Kidney Disease Epidemiology Collaboration (CKD-EPI) equation refit??without adjustment for race. BUN/Creatinine Ratio 16.8 LAB CHEMISTRY METHOD 07/29/2024 9:23 AM [facility] LAB Calcium 9.0 8.5 - 10.5 mg/dL LAB CHEMISTRY METHOD 07/29/2024 9:23 AM [facility] LAB AST (SGOT) 29 10 - 42 unit/L LAB CHEMISTRY METHOD 07/29/2024 9:23 AM [facility] LAB ALT (SGPT) 42 10 - 60 unit/L LAB CHEMISTRY METHOD 07/29/2024 9:23 AM [facility] LAB Alkaline Phosphatase 109 42 - 121 unit/L LAB CHEMISTRY METHOD 07/29/2024 9:23 AM [facility] LAB Total Protein 6.6 6.0 - 8.0 g/dL LAB CHEMISTRY METHOD 07/29/2024 9:23 AM [facility] LAB Albumin 3.9 3.2 - 5.0 g/dL LAB CHEMISTRY METHOD 07/29/2024 9:23 AM [facility] LAB Total Bilirubin 0.4 0.0 - 1.4 mg/dL LAB CHEMISTRY METHOD 07/29/2024 9:23 AM [facility] LAB Blood Venous blood specimen / Unknown Venipuncture / Unknown 07/29/2024 5:18 AM EST 07/29/2024 7:24 AM EST us Matthew Lynn MD LAB BLOOD ORDERABLES Final Resu lt [facility] LAB [address] [place] [address], * Thyroid stimulating hormone (07/23/2024 5:35 AM EST) TSH 1.96 0.40 - 4.00 mcIU/mL LAB CHEMISTRY METHOD 07/23/2024 5:28 PM EST [facility] Blood Venous blood specimen / Unknown Venipuncture / Unknown 07/23/2024 5:35 AM EST 07/23/2024 9:54 AM EST us Matthew Lynn MD LAB BLOOD ORDERABLES Final Resu lt [facility]) [facility] LAB [address] [place] [address], [place] [phone] * US ABDOMINAL AORTA REAL TIME SCREEN [...] abdominal aortic aneurysm. us Ariana Sidhu MD [facility] US PROCEDURES Final Result * (ABNORMAL) Lipid [...] Relevant to Health [place] [id number] MEDICARE Care Teams Stucco Mason Relationship Specialty Start Date End Date Ariana Sidhu MD [address] [place] [address] PCP - General Internal Medicine 04/22/15
--- OUTSIDE RECORDS SUMMARY | 2024-09-12 19:12 | XMS_ITS | Clinical Summary ---
Author Organization [facility] Address [address] [place] [address] Care Team Providers Care Waiter/Waitress Room Service Name Role Phone Beni Moore MD Primary Care Provider [phone] Allergies Active Allergy Reactions Criticality Noted Date [...] age to complete this topic Care Teams Waiter/Waitress Room Service Relationship Specialty Start Date End Date Beni Moore MD PCP - General Internal Medicine 08/09/21
--- OUTSIDE RECORDS SUMMARY | 2024-09-12 19:12 | XMS_ITS | Encounter Summary ---
Author Organization [facility] Address [address] [place] [address] Care Team Providers Care Ambulatory Technologist Name Role Phone Ariana Sidhu MD Primary Care Provider [phone] Encounter Details Date Type Department Care Team (Late st Contact Info) Description 07/29/2024 Lab Requisition [facility] - Main Lab [address] [facility] [place] [address] Matthew Lynn MD [address] [place] [phone] Encounter for other general examination Social History [...] CBC auto differential (07/29/2024 5:18 AM EST) [facility] WBC 7.2 4.8 - 10.8 K/mcL LAB HEMETOLOGY METHOD 07/29/2024 8:57 AM [facility] LAB RBC 3.40(L) 4.50 - 5.50 M/mcL LAB HEMETOLOGY METHOD 07/29/2024 8:57 AM [facility] [...] MD LAB BLOOD ORDERABLES Final Resu lt [facility] LAB [address] [place] [address], [place] [phone] * Magnesium (07/29/2024 5:18 AM EST) Pathologist [facility] Magnesium 2.2 1.9 - 2.6 mg/dL LAB CHEMISTRY METHOD 07/29/2024 9:23 AM EST [facility] LAB Blood Venous blood specimen / Unknown Venipuncture / Unknown 07/29/2024 5:18 AM EST 07/29/2024 7:24 AM EST us Matthew Lynn MD LAB BLOOD ORDERABLES Final Resu lt [facility] LAB [address] [place] [address], [place] [phone] * Comprehensive metabolic panel (07/29/2024 5:18 AM EST) Pathologist [facility] Sodium 137 133 - 145 mmol/L LAB CHEMISTRY METHOD 07/29/2024 9:23 AM [facility] LAB Potassium 4.8 3.5 - 5.5 mmol/L LAB CHEMISTRY METHOD 07/29/2024 9:23 AM EST [facility] LAB Chloride 103 96 - 110 mmol/L LAB CHEMISTRY METHOD 07/29/2024 9:23 AM EST [facility] LAB CO2 30 21 - 32 [...] LAB BLOOD ORDERABLES Final Resu lt [facility] LAB [address] [place] [address], documented in this encounter Visit Diagnoses Diagnosis Encounter for other general examination documented in this encounter Care Teams Ambulatory Technologist Relationship Specialty Start Date End Date Ariana Sidhu MD [address] [place] [address] PCP - General Internal Medicine 04/22/15 documented as of this encounter
== END 2024-09-12 14:39 | disposition home or self-care (01) ==
LOC: HO.LAB 14:38
PROVIDERS: PCP Nurse Practitioner Family; Visit Provider Urology
DX: N39.0 Urinary tract infection, site not specified (principal); N40.1 Benign prostatic hyperplasia with lower urinary tract symptoms; R32 Unspecified urinary incontinence; Z13.9 Encounter for screening, unspecified; Z98.890 Other specified postprocedural states
CPT/HCPCS: 51798; 81003; 88112; 99212

== ENCOUNTER 2024-09-12 14:38 | Outpatient (AMB) | payer MEDICARE, SELFPAY ==
--- NOTE | 2024-09-12 14:42 | MHC.OFFVIS ---
Intake Visit Reasons: prostate lesion Intake Note: Patient is present for PROSTATE LESION Urology Medication:VITAMIN B12,VITAMIN B1 Antibiotic Allergy:NONE Blood Thinner:ASPIRIN TODAY'S PVR:56ML'S Hydrologist Required: No Allergies lisinopril Allergy (Mild, Verified 09/12/24 14:43) Unknown codeine Allergy (Verified 09/12/24 14:43) Unknown HPI Comments Details: History of Present Illness The patient is a 69-year-old male presenting with genito-urinary issues secondary to recent hospitalization findings. Following a fall that resulted in an altered mental state, a Lunsford catheter was placed due to urinary difficulties, and a CT scan suggested a potential prostate nodule or bladder lesion. The catheter has since been removed, and current bladder scans show acceptable post-void residuals. His past medical history includes coronary artery disease and myocardial infarction, for which he is taking clopidogrel. There is a significant history of former tobacco use, with cessation in 2019. The patient experienced a delusional state during hospitalization likely exacerbated by a urinary tract infection and prior anoxic brain damage from his first heart attack, affecting his balance and causing frequent falls. Urinary Symptoms Review - Current urination restored post Lunsford catheter removal - Bladder scan indicates acceptable post-void residual - Delayed onset of urinary stream noted - Occasional incontinence with pooling of urine before voiding begins - Nocturnal symptoms not specifically reported Review of Systems - Neurological: Reports previous episodes of confusion and delirium during hospitalization - Cardiovascular: Denies new or worsening chest pain - Psychiatric: Reports delusional episodes during hospitalization Const All systems reviewed & are unremarkable except as noted in HPI and below Reports no additional complaints Eyes Reports no additional complaints ENT Reports no additional complaints Card Reports no additional complaints Resp Reports no additional complaints GI Reports no additional complaints Reports as per HPI Musc Reports no additional complaints Skin/Breast Reports system reviewed and no additional complaints, except as documented Neuro Reports no additional complaints Psych Reports no additional complaints Endo Reports no additional complaints Brayan/Lymph Reports no additional complaints Aller/Immun Reports no additional complaints Physical Exam General: Healthy appearing, no acute distress and well developed Orientation and consciousness: Patient disoriented, history of delusional state and confusion Head: Yes normocephalic and Yes atraumatic Eyes: Conjunctivae normal Neck: Yes normal visual inspection Chest: Normal inspection of the chest Respiratory: Normal respiratory effort GI: Normal to inspection : Extremities: Skin: Neurology: Patient disoriented, history of delusional state and confusion Psych: Appearance grossly normal. History of delusional state and confusion, normal affect Results - Tests: CT scan indicating possible prostate nodule versus bladder lesion - Labs: Normal PSA screening during hospitalization Plan The plan includes conducting a cystoscopy to further evaluate the potential prostate nodule or bladder lesion as indicated by prior imaging. Initiation of tamsulosin will help improve urinary flow and manage current urination difficulties. It is essential to monitor the patient's blood pressure due to the possible hypotensive effects of tamsulosin. The patient will be educated on potential side effects and the procedure process, and the need to follow up for further cardiac management given historical context. Patient was informed and verbally consented to the use of an ambient scribe for clinic note documentation during this visit. Discussion Notes We discussed with the patient and his the importance of examining the bladder and prostate further to rule out any significant lesions or growths. Cystoscopy is recommended for direct visualization of the bladder. We reviewed the procedural details, indicating the use of a scope and numbing gel for patient comfort. I informed them of the rare, though possible, side effect of tamsulosin related to blood pressure reduction, and advised taking the medication at night to mitigate this risk. Additionally, the patient understood the need for home blood pressure monitoring amidst ongoing cardiac care. I also emphasized the essential nature of avoiding unnecessary alarm as current indicators point away from a malignant process, given normal PSA results, and a specific prostate examination by a specialist will uphold patient safety and care integrity. Follow-up was outlined comprehensively for a procedural appointment and ongoing evaluation. Patient Instructions - Take tamsulosin as prescribed, preferably at night for minimal side effects. - Monitor blood pressure at home regularly, especially after starting the medication, and report any unusual readings. - Schedule and attend the cystoscopy appointment for bladder evaluation. - Continue to avoid smoking; maintain a heart-healthy lifestyle. - Contact the office if experiencing dizziness, chest pain, or any new or worsening symptoms. 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 - Reach out if questions concerning the procedure arise. [facility] Medical History Contusion of left chest wall Emphysema of lung BPH loc w urin obs/LUTS Neurogenic bladder Prostate nodule Ataxia Anoxic brain injury Epilepsy Compulsive behavior disorder Cardiac arrest Surgical History No pertinent past surgical history Social History Household Members: Unknown / Unable to assess Housing: Unknown / Unable to assess Alcohol intake: never Comment: constant conpanion at bedside Patient Tobacco Use Status: Former Tobacco user e-Cigarette/Vaping Use: Never Used Substance Use Type: Marijuana service: No Current occupational status: retired Cognitive needs: No Hearing needs: No Vision needs: No Review of Systems Const All systems reviewed & are unremarkable except as noted in HPI and below Reports no additional complaints Eyes Reports no additional complaints ENT Reports no additional complaints Card Reports no additional complaints Resp Reports no additional complaints GI Reports no additional complaints Reports as per HPI Musc Reports no additional complaints Skin/Breast Reports system reviewed and no additional complaints, except as documented Neuro Reports no additional complaints Psych Reports no additional complaints Endo Reports no additional complaints Brayan/Lymph Reports no additional complaints Aller/Immun Reports no additional complaints Physical Exam Const General: healthy appearing, no acute distress and well developed Orientation/consciousness: patient oriented x3 HEENT Head: Yes normocephalic and Yes atraumatic Eyes Conjunctivae: conjunctivae normal Neck Neck: Yes normal visual inspection Chest Chest palpation & inspection: normal inspection of the chest Resp Effort & Inspection: normal respiratory effort Cardio Rate: regular rate GI Inspection: Yes normal to inspection Neuro General: patient oriented x3 Psych Appearance: grossly normal Affect: normal affect Office Procedures Post Void Residual Post Residual Void Post Void Residual (PVR): 56 [id number] Void Residual by ultrasound Results AMB Urinalysis, Automated UA Leukoctes 0 Carlos/uL Last Edit by SAMI Doherty on 09/12/24 15:02 UA Nitrite Negative Last Edit by SAMI Doherty on 09/12/24 15:02 UA Urobilinogen 3.5 mg/dL Last Edit by SAMI Doherty on 09/12/24 15:02 UA Protein 3 mg/dL Last Edit by SAMI Doherty on 09/12/24 15:02 UA pH 6.0 Last Edit by SAMI Doherty on 09/12/24 15:02 UA Blood 0 Kanu/uL Last Edit by SAMI Doherty on 09/12/24 15:02 UA Specific [place] 1.025 Last Edit by SAMI Doherty on 09/12/24 15:02 UA Ketone Negative Last Edit by SAMI Doherty on 09/12/24 15:02 UA Bilirubin 0 mg/dL Last Edit by SAMI Doherty on 09/12/24 15:02 UA Glucose 0 mg/dL Last Edit by SAMI Doherty on 09/12/24 15:02 Results Reviewed Results Reviewed: Laboratory Last Values Urine pH (Auto) 6.0 09/12/24 15:02 Specific [place] (Auto) 1.025 09/12/24 15:02 Urine Protein (Auto) 3 mg/dL 09/12/24 15:02 Glucose (UA)(Auto) 0 mg/dL 09/12/24 15:02 Urine Ketones (Auto) Negative 09/12/24 15:02 Urine Blood (Auto) 0 Kanu/uL 09/12/24 15:02 Urine Nitrite (Auto) Negative 09/12/24 15:02 Urine Bilirubin (Auto) 0 mg/dL 09/12/24 15:02 Urine Urobilinogen (Auto) 3.5 mg/dL 09/12/24 15:02 Leukocyte Esterase (Auto) 0 Carlos/uL 09/12/24 15:02 Date of Service: 06/27/24 Procedure(s): CT abdomen pelvis w IV con Accession Number(s): [id number] cc: Leon Godinez-; Ashely Benton NP~ EXAMINATION: CT ABDOMEN AND PELVIS WITH CONTRAST CLINICAL INFORMATION: Constipation of one week's duration. COMPARISON: None available. TECHNIQUE: Multidetector volumetric images were obtained from the superior aspect of the liver through the pubic symphysis following administration 85 mL of Omnipaque 350 intravenous contrast. Sagittal and coronal reformatted images were obtained on the technologist's workstation. Oral contrast: No This CT examination was performed using dose optimization techniques as appropriate, variously including the following: *Automated exposure control *Adjustment of mA and/or kV according to patient size (this includes techniques or standardized protocols for targeted exams where dose is matched to indication/reason for exam; i.e. extremities or head) *Use of iterative reconstruction technique DLP: 784 mGy-cm FINDINGS: LUNG BASES: There is bibasilar dependent hypoaeration. There is very mild left gynecomastia. LIVER, GALLBLADDER, AND BILIARY TREE: The liver is normal in size, shape, and attenuation. No focal hepatic lesion or biliary ductal dilatation is present. The gallbladder is unremarkable with no evidence of radiopaque gallstones, gallbladder wall thickening, or obvious pericholecystic inflammatory changes. PANCREAS: Unremarkable. SPLEEN: Unremarkable. ADRENAL GLANDS: Unremarkable. KIDNEYS AND URETERS: The kidneys are normal in size, shape, and attenuation. No hydronephrosis, hydroureter, or calculi seen. No perinephric stranding. BLADDER: There is a probable 1.1 cm prostate nodule projecting into the bladder base, versus less likely a bladder wall lesion (7:58). GASTROINTESTINAL TRACT: There is mild diverticulosis, without acute diverticulitis. No bowel obstruction, free intraperitoneal air or abscess is seen. There is no focal bowel wall thickening. The vermiform appendix appears normal. No diverticulosis or diverticulitis is seen. ABDOMINAL WALL: No significant hernia is appreciated. LYMPH NODES: Normal. VASCULAR: There is mild aortoiliac atherosclerotic calcification. No abdominal aortic aneurysm or dissection is seen. PELVIC VISCERA: Towards the superior margin of the prostate gland, a 1.1 cm nodule is questioned. Less likely, this could represent a bladder nodule. OSSEOUS STRUCTURES: At T9-10, and is marked disc space narrowing. At L3-4, there is vacuum disc phenomenon. There is multi-level lower thoracic and lumbar endplate arthropathy and Schmorl's node formation. No acute or aggressive osseous finding is noted. IMPRESSION: 1. There is mild diverticulosis, without acute diverticulitis. No obstruction, free intraperitoneal air or abscess is seen. There is no focal bowel wall thickening. 2. A 1.1 cm probable prostate nodule is seen, projecting into the bladder base. Less likely, this could represent a bladder wall lesion. Recommend correlation with the patient's serum PSA level. As well, consider further evaluation with prostate/bladder ultrasound. 3. There is thoracolumbar degenerative disc disease. Assessment & Plan Assessment & Plan Orders: Orders AMB Urinalysis Automated Today Z13.9 - Encounter for screening, unspecified Urine Cytology Today N39.0 - Urinary tract infection, site not specified Medications: New tamsulosin (Flomax) 0.4 mg PO BEDTIME 30 caps 3RF Coding CPT Codes Post Residual Void - PVR CPT Code: 77388-Punu Void Residual by ultrasound ([id number])
--- OUTSIDE RECORDS SUMMARY | 2024-09-12 18:28 | XMS_ITS | Clinical Summary ---
Author Organization [facility] [address] [place] [address] [place] [phone] Phone Care Team Providers Care Parts Department Manager Name Role Phone Ariana Sidhu MD Primary Care Provider [phone] Allergies Active Allergy Reactions Criticality Noted Date [...] mcg by mouth daily. 08/06/2021 Active cloNIDine ([id number]) 0.1 mg/[address] 0.1 mg onto [...] Care Team Description 07/29/[address] [facility] [address] [place] [address] Matthew Lynn MD Encounter for other general examination 07/23/[address] [facility] - [facility] Lab [address] [place] [address] Matthew Lynn MD Encounter for [...] (HCC); COMMENT: Due to delayed response after [place] Fluctuation of weight DX:Fluctua tion of weight [...] LAB HEMETOLOGY METHOD 07/29/2024 8:57 AM EST [facility] RBC 3.40(L) 4.50 - 5.50 M/mcL LAB HEMETOLOGY METHOD 07/29/2024 8:57 AM EST [facility] Hemoglobin 10.7(L) 13.5 - 17.5 g/dL LAB HEMETOLOGY METHOD 07/29/2024 8:57 AM EST [facility] Hematocrit 33.0(L) 42.0 - 54.0 % LAB HEMETOLOGY METHOD 07/29/2024 8:57 AM [facility] MCV 98.2(H) 79.0 - 98.0 FL LAB HEMETOLOGY METHOD 07/29/2024 8:57 AM [facility] MCH 31.8 27.0 - 32.0 pcg LAB HEMETOLOGY METHOD 07/29/2024 8:57 AM [facility] MCHC 32.4 32.0 - 37.0 g/dL LAB HEMETOLOGY METHOD 07/29/2024 8:57 AM [facility] RDW 18.1(H) 11.0 - 15.0 % LAB HEMETOLOGY METHOD 07/29/2024 8:57 AM [facility] Platelets 531(H) 130 - 400 K/mcL LAB HEMETOLOGY METHOD 07/29/2024 8:57 AM [facility] MPV 9.7 7.0 - 11.0 FL LAB HEMETOLOGY METHOD 07/29/2024 8:57 AM [facility] NRBC 0.0 <1.0 % LAB HEMETOLOGY METHOD 07/29/2024 8:57 AM [facility] NRBC Absolute 0.00 <0.10 K/mcL LAB HEMETOLOGY METHOD 07/29/2024 8:57 AM [facility] Neutrophils Relative 36.8 % LAB HEMETOLOGY METHOD 07/29/2024 8:57 AM [facility] Lymphocytes Relative 50.5 % LAB HEMETOLOGY METHOD 07/29/2024 8:57 AM [facility] Monocytes Relative 10.2 % LAB HEMETOLOGY METHOD 07/29/2024 8:57 AM [facility] Eosinophils Relative 1.8 % LAB HEMETOLOGY METHOD 07/29/2024 8:57 AM EST [facility] Basophils Relative 0.4 % LAB HEMETOLOGY METHOD 07/29/2024 8:57 AM [facility] Immature Granulocytes Relative 0.3 % LAB HEMETOLOGY METHOD 07/29/2024 8:57 AM [facility] Neutrophils Absolute 2.63 1.50 - 7.00 K/mcL LAB HEMETOLOGY METHOD 07/29/2024 8:57 AM EST [facility] Lymphocytes Absolute 3.61 1.00 - 5.00 K/mcL LAB HEMETOLOGY METHOD 07/29/2024 8:57 AM [facility] Monocytes Absolute 0.73 0.20 - 1.00 K/mcL LAB HEMETOLOGY METHOD 07/29/2024 8:57 AM [facility] Eosinophils Absolute 0.13 0.00 - 0.50 K/mcL LAB HEMETOLOGY METHOD 07/29/2024 8:57 AM EST [facility] Basophils Absolute 0.03 0.00 - 0.20 K/mcL LAB HEMETOLOGY METHOD 07/29/2024 8:57 AM [facility] Immature Granulocytes Absolute 0.02 0.00 - 0.03 K/mcL LAB HEMETOLOGY METHOD 07/29/2024 8:57 AM [facility] Blood Venous blood specimen / Unknown Venipuncture / Unknown 07/29/2024 5:18 AM EST 07/29/2024 7:24 AM EST us Matthew Lynn MD LAB BLOOD ORDERABLES Final Resu lt [facility] [address] [place] [address], * Magnesium (07/29/2024 5:18 AM EST) Only the most recent of2 resultswithin the time period is included. Magnesium 2.2 1.9 - 2.6 mg/dL LAB CHEMISTRY METHOD 07/29/2024 9:23 AM [facility] Blood Venous blood specimen / Unknown Venipuncture / Unknown 07/29/2024 5:18 AM EST 07/29/2024 7:24 AM EST us Matthew Lynn MD LAB BLOOD ORDERABLES Final Resu lt [facility] [address] [place] [address], [place] [phone] * Comprehensive metabolic panel (07/29/2024 5:18 AM EST) Only the most recent of2 resultswithin the time period is included. Sodium 137 133 - 145 mmol/L LAB CHEMISTRY METHOD 07/29/2024 9:23 AM [facility] Potassium 4.8 3.5 - 5.5 mmol/L LAB CHEMISTRY METHOD 07/29/2024 9:23 AM [facility] Chloride 103 96 - 110 mmol/L LAB CHEMISTRY METHOD 07/29/2024 9:23 AM [facility] CO2 30 21 - 32 mmol/L LAB CHEMISTRY METHOD 07/29/2024 9:23 AM [facility] Anion Gap 4 3 - 11 LAB CHEMISTRY METHOD 07/29/2024 9:23 AM [facility] Glucose 84 70 - 100 mg/dL LAB CHEMISTRY METHOD 07/29/2024 9:23 AM [facility] BUN 20 5 - 25 mg/dL LAB CHEMISTRY METHOD 07/29/2024 9:23 AM [facility] Creatinine 1.19 0.70 - 1.30 mg/dL LAB CHEMISTRY METHOD 07/29/2024 9:23 AM [facility] eGFR 67 >=60 mL/min/1. 73m2 LAB CHEMISTRY METHOD 07/29/2024 9:23 AM [facility] Comment:Calculation based on the??Chronic Kidney Disease Epidemiology Collaboration (CKD-EPI) equation refit??without adjustment for race. BUN/Creatinine Ratio 16.8 LAB CHEMISTRY METHOD 07/29/2024 9:23 AM [facility] Calcium 9.0 8.5 - 10.5 mg/dL LAB CHEMISTRY METHOD 07/29/2024 9:23 AM [facility] AST (SGOT) 29 10 - 42 unit/L LAB CHEMISTRY METHOD 07/29/2024 9:23 AM [facility] ALT (SGPT) 42 10 - 60 unit/L LAB CHEMISTRY METHOD 07/29/2024 9:23 AM [facility] Alkaline Phosphatase 109 42 - 121 unit/L LAB CHEMISTRY METHOD 07/29/2024 9:23 AM [facility] Total Protein 6.6 6.0 - 8.0 g/dL LAB CHEMISTRY METHOD 07/29/2024 9:23 AM [facility] Albumin 3.9 3.2 - 5.0 g/dL LAB CHEMISTRY METHOD 07/29/2024 9:23 AM [facility] Total Bilirubin 0.4 0.0 - 1.4 mg/dL LAB CHEMISTRY METHOD 07/29/2024 9:23 AM [facility] Blood Venous blood specimen / Unknown Venipuncture / Unknown 07/29/2024 5:18 AM EST 07/29/2024 7:24 AM EST us Matthew Lynn MD LAB BLOOD ORDERABLES Final Resu lt [facility] [address] [place] [address], * Thyroid stimulating hormone (07/23/2024 5:35 AM EST) TSH 1.96 0.40 - 4.00 mcIU/mL LAB CHEMISTRY METHOD 07/23/2024 5:28 PM EST [facility] Blood Venous blood specimen / Unknown Venipuncture / Unknown 07/23/2024 5:35 AM EST 07/23/2024 9:54 AM EST us Matthew Lynn MD LAB BLOOD ORDERABLES Final Resu lt [facility]) [facility] [address] [place] [address], [place] [phone] * US ABDOMINAL AORTA REAL TIME SCREEN [...] abdominal aortic aneurysm. us Ariana Sidhu MD [facility] US PROCEDURES Final Result * (ABNORMAL) Lipid [...] Relevant to Health [place] [phone] MEDICARE Care Teams Parts Department Manager Relationship Specialty Start Date End Date Ariana Sidhu MD [address] [place] [address] PCP - General Internal Medicine 04/22/15
--- OUTSIDE RECORDS SUMMARY | 2024-09-12 18:28 | XMS_ITS | Clinical Summary ---
Author Organization [facility] Facility Address [address] [address] Care Team Providers Care Manager Product Design Name Role Phone Unavailable Primary Care Provider [...] patient's age to complete this topic Insurance [facility] [place] [id number] [facility]
--- OUTSIDE RECORDS SUMMARY | 2024-09-12 18:28 | XMS_ITS | Encounter Summary ---
Author Organization [facility] Address [address] [place] [address] Care Team Providers Care Spot Worker Name Role Phone Ariana Sidhu MD Primary Care Provider [phone] Encounter Details Date Type Department Care Team (Late st Contact Info) Description 07/23/2024 Lab Requisition [facility] - Main Lab [address] [facility] [place] [address] Matthew Lynn MD [address] [place] [id number] Encounter for other general examination Social History [...] Thyroid stimulating hormone (07/23/2024 5:35 AM EST) [facility] TSH 1.96 0.40 - 4.00 mcIU/mL LAB CHEMISTRY METHOD 07/23/2024 5:28 PM EST [facility] Blood Venous blood specimen / Unknown Venipuncture / Unknown 07/23/2024 5:35 AM EST 07/23/2024 9:54 AM EST us Matthew Lynn MD LAB BLOOD ORDERABLES Final Resu lt [facility] [address] [place] [address], [place] [phone] * (ABNORMAL) CBC auto differential (07/23/2024 5:35 AM EST) [facility] WBC 7.1 4.8 - 10.8 K/mcL LAB HEMETOLOGY METHOD 07/23/2024 10:44 AM [facility] RBC 3.20(L) 4.50 - 5.50 M/mcL LAB HEMETOLOGY METHOD 07/23/2024 10:44 AM [facility] Hemoglobin 10.3(L) 13.5 - 17.5 g/dL LAB HEMETOLOGY METHOD 07/23/2024 10:44 AM [facility] Hematocrit 31.0(L) 42.0 - 54.0 % LAB HEMETOLOGY METHOD 07/23/2024 10:44 AM [facility] MCV 97.8 79.0 - 98.0 FL LAB HEMETOLOGY METHOD 07/23/2024 10:44 AM [facility] MCH 32.5(H) 27.0 - 32.0 pcg LAB HEMETOLOGY METHOD 07/23/2024 10:44 AM [facility] MCHC 33.2 32.0 - 37.0 g/dL LAB HEMETOLOGY METHOD 07/23/2024 10:44 AM [facility] RDW 17.6(H) 11.0 - 15.0 % LAB HEMETOLOGY METHOD 07/23/2024 10:44 AM [facility] Platelets 554(H) 130 - 400 K/mcL LAB HEMETOLOGY METHOD 07/23/2024 10:44 AM [facility] MPV 10.0 7.0 - 11.0 FL LAB HEMETOLOGY METHOD 07/23/2024 10:44 AM [facility] NRBC 0.0 <1.0 % LAB HEMETOLOGY METHOD 07/23/2024 10:44 AM [facility] NRBC Absolute 0.00 <0.10 K/mcL LAB HEMETOLOGY METHOD 07/23/2024 10:44 AM [facility] Neutrophils Relative 39.3 % LAB HEMETOLOGY METHOD 07/23/2024 10:44 AM [facility] Lymphocytes Relative 44.8 % LAB HEMETOLOGY METHOD 07/23/2024 10:44 AM [facility] Monocytes Relative 13.1 % LAB HEMETOLOGY METHOD 07/23/2024 10:44 AM [facility] Eosinophils Relative 1.6 % LAB HEMETOLOGY METHOD 07/23/2024 10:44 AM [facility] Basophils Relative 0.6 % LAB HEMETOLOGY METHOD 07/23/2024 10:44 AM [facility] Immature Granulocytes Relative 0.6 % LAB HEMETOLOGY METHOD 07/23/2024 10:44 AM [facility] Neutrophils Absolute 2.79 1.50 - 7.00 K/mcL LAB HEMETOLOGY METHOD 07/23/2024 10:44 AM [facility] Lymphocytes Absolute 3.17 1.00 - 5.00 K/mcL LAB HEMETOLOGY METHOD 07/23/2024 10:44 AM EST [facility] Monocytes Absolute 0.93 0.20 - 1.00 K/[facility] LAB HEMETOLOGY METHOD 07/23/2024 10:44 AM EST [facility] Eosinophils Absolute 0.11 0.00 - 0.50 K/[facility] LAB HEMETOLOGY METHOD 07/23/2024 10:44 AM EST [facility] Basophils Absolute 0.04 0.00 - 0.20 K/[facility] LAB HEMETOLOGY METHOD 07/23/2024 10:44 AM EST [facility] Immature Granulocytes Absolute 0.04(H) 0.00 - 0.03 K/[facility] LAB HEMETOLOGY METHOD 07/23/2024 10:44 AM EST [facility] Blood Venous blood specimen / Unknown Venipuncture / Unknown 07/23/2024 5:35 AM EST 07/23/2024 9:54 AM EST us Matthew Lynn MD LAB BLOOD ORDERABLES Final Resu lt Performing Organization Address City/[facility]/ZIP Co de Phone Number [facility] [address] [place] [address], [place] [phone] * Magnesium (07/23/2024 5:35 AM EST) Magnesium 2.3 1.9 - 2.6 mg/dL LAB CHEMISTRY METHOD 07/23/2024 11:15 AM EST [facility] Blood Venous blood specimen / Unknown Venipuncture / Unknown 07/23/2024 5:35 AM EST 07/23/2024 9:54 AM EST us Matthew Lynn MD LAB BLOOD ORDERABLES Final Resu lt [facility] [address] [place] [address], [place] [phone] * (ABNORMAL) Comprehensive metabolic panel (07/23/2024 5:35 AM EST) Sodium 135 133 - 145 mmol/L LAB CHEMISTRY METHOD 07/23/2024 11:15 AM [facility] Potassium 4.5 3.5 - 5.5 mmol/L LAB CHEMISTRY METHOD 07/23/2024 11:15 AM [facility] Chloride 103 96 - 110 mmol/L LAB CHEMISTRY METHOD 07/23/2024 11:15 AM [facility] CO2 25 21 - 32 mmol/L LAB CHEMISTRY METHOD 07/23/2024 11:15 AM [facility] Anion Gap 7 3 - 11 LAB CHEMISTRY METHOD 07/23/2024 11:15 AM [facility] Glucose 81 70 - 100 mg/dL LAB CHEMISTRY METHOD 07/23/2024 11:15 AM [facility] BUN 19 5 - 25 mg/dL LAB CHEMISTRY METHOD 07/23/2024 11:15 AM [facility] Creatinine 1.19 0.70 - 1.30 mg/dL LAB CHEMISTRY METHOD 07/23/2024 11:15 AM [facility] eGFR 67 >=60 mL/min/1. 73m2 LAB CHEMISTRY METHOD 07/23/2024 11:15 AM [facility] Comment:Calculation based on the??Chronic Kidney Disease Epidemiology Collaboration (CKD-EPI) equation refit??without adjustment for race. BUN/Creatinine Ratio 16.0 LAB CHEMISTRY METHOD 07/23/2024 11:15 AM [facility] Calcium 8.8 8.5 - 10.5 mg/dL LAB CHEMISTRY METHOD 07/23/2024 11:15 AM [facility] AST (SGOT) 66(H) 10 - 42 unit/L LAB CHEMISTRY METHOD 07/23/2024 11:15 AM [facility] ALT (SGPT) 74(H) 10 - 60 unit/L LAB CHEMISTRY METHOD 07/23/2024 11:15 AM EST [facility] Alkaline Phosphatase 120 42 - 121 unit/L LAB CHEMISTRY METHOD 07/23/2024 11:15 AM [facility] Total Protein 6.9 6.0 - 8.0 g/dL LAB CHEMISTRY METHOD 07/23/2024 11:15 AM EST [facility] Albumin 3.8 3.2 - 5.0 g/dL LAB CHEMISTRY METHOD 07/23/2024 11:15 AM [facility] Total Bilirubin 0.4 0.0 - 1.4 mg/dL LAB CHEMISTRY METHOD 07/23/2024 11:15 AM [facility] Blood Venous blood specimen / Unknown Venipuncture / Unknown 07/23/2024 5:35 AM EST 07/23/2024 9:54 AM EST us Matthew Lynn MD LAB BLOOD ORDERABLES Final Resu lt [facility] [address] [place] [address], documented in this encounter Visit Diagnoses Diagnosis Encounter for other general examination documented in this encounter Care Teams Spot Worker Relationship Specialty Start Date End Date Ariana Sidhu MD [address] [place] [address] PCP - General Internal Medicine 04/22/15 documented as of this encounter
--- OUTSIDE RECORDS SUMMARY | 2024-09-12 18:28 | XMS_ITS | Encounter Summary ---
Author Organization [facility] Address [address] [place] [address] Care Team Providers Care Care Partner Name Role Phone Ariana Sidhu MD Primary Care Provider Encounter Details Date Type Department Care Team (Late st Contact Info) Description 07/29/[address] [facility] - Main Lab [address] [facility] [employer] [place] [address] Matthew Lynn MD [address] [place] [address] Encounter for other general examination Social History [...] CBC auto differential (07/29/2024 5:18 AM EST) [facility] WBC 7.2 4.8 - 10.8 K/mcL LAB HEMETOLOGY METHOD 07/29/2024 8:57 AM [facility] RBC 3.40(L) 4.50 - 5.50 M/mcL LAB HEMETOLOGY METHOD 07/29/2024 8:57 AM [facility] Hemoglobin 10.7(L) 13.5 - 17.5 g/dL LAB HEMETOLOGY METHOD 07/29/2024 8:57 AM [facility] Hematocrit 33.0(L) 42.0 - 54.0 % LAB HEMETOLOGY METHOD 07/29/2024 8:57 AM [facility] MCV 98.2(H) 79.0 - 98.0 FL LAB HEMETOLOGY METHOD 07/29/2024 8:57 AM [facility] MCH 31.8 27.0 - 32.0 pcg LAB HEMETOLOGY METHOD 07/29/2024 8:57 AM [facility] MCHC 32.4 32.0 - 37.0 g/dL LAB HEMETOLOGY METHOD 07/29/2024 8:57 AM [facility] RDW 18.1(H) 11.0 - 15.0 % LAB HEMETOLOGY METHOD 07/29/2024 8:57 AM [facility] Platelets 531(H) 130 - 400 K/mcL LAB HEMETOLOGY METHOD 07/29/2024 8:57 AM [facility] MPV 9.7 7.0 - 11.0 FL LAB HEMETOLOGY METHOD 07/29/2024 8:57 AM [facility] NRBC 0.0 <1.0 % LAB HEMETOLOGY METHOD 07/29/2024 8:57 AM [facility] NRBC Absolute 0.00 <0.10 K/mcL LAB HEMETOLOGY METHOD 07/29/2024 8:57 AM [facility] Neutrophils Relative 36.8 % LAB HEMETOLOGY METHOD 07/29/2024 8:57 AM [facility] Lymphocytes Relative 50.5 % LAB HEMETOLOGY METHOD 07/29/2024 8:57 AM [facility] Monocytes Relative 10.2 % LAB HEMETOLOGY METHOD 07/29/2024 8:57 AM [facility] Eosinophils Relative 1.8 % LAB HEMETOLOGY METHOD 07/29/2024 8:57 AM [facility] Basophils Relative 0.4 % LAB HEMETOLOGY METHOD 07/29/2024 8:57 AM [facility] Immature Granulocytes Relative 0.3 % LAB HEMETOLOGY METHOD 07/29/2024 8:57 AM [facility] Neutrophils Absolute 2.63 1.50 - 7.00 K/mcL LAB HEMETOLOGY METHOD 07/29/2024 8:57 AM [facility] Lymphocytes Absolute 3.61 1.00 - 5.00 K/mcL LAB HEMETOLOGY METHOD 07/29/2024 8:57 AM [facility] Monocytes Absolute 0.73 0.20 - 1.00 K/mcL LAB HEMETOLOGY METHOD 07/29/2024 8:57 AM [facility] Eosinophils Absolute 0.13 0.00 - 0.50 K/mcL LAB HEMETOLOGY METHOD 07/29/2024 8:57 AM [facility] Basophils Absolute 0.03 0.00 - 0.20 K/mcL LAB HEMETOLOGY METHOD 07/29/2024 8:57 AM [facility] Immature Granulocytes Absolute 0.02 0.00 - 0.03 K/mcL LAB HEMETOLOGY METHOD 07/29/2024 8:57 AM [facility] Blood Venous blood specimen / Unknown Venipuncture / Unknown 07/29/2024 5:18 AM EST 07/29/2024 7:24 AM EST us Matthew Lynn MD LAB BLOOD ORDERABLES Final Resu lt [facility] [address] [place] [address], [place] [phone] * Magnesium (07/29/2024 5:18 AM EST) Pathologist [facility] Magnesium 2.2 1.9 - 2.6 mg/dL LAB CHEMISTRY METHOD 07/29/2024 9:23 AM EST [facility] Blood Venous blood specimen / Unknown Venipuncture / Unknown 07/29/2024 5:18 AM EST 07/29/2024 7:24 AM EST us Matthew Lynn MD LAB BLOOD ORDERABLES Final Resu lt [facility] [address] [place] [address], [place] [phone] * Comprehensive metabolic panel (07/29/2024 5:18 AM EST) Pathologist [facility] Sodium 137 133 - 145 mmol/L LAB CHEMISTRY METHOD 07/29/2024 9:23 AM [facility] Potassium 4.8 3.5 - 5.5 mmol/L LAB CHEMISTRY METHOD 07/29/2024 9:23 AM EST [facility] Chloride 103 96 - 110 mmol/L LAB CHEMISTRY METHOD 07/29/2024 9:23 AM EST [facility] CO2 30 21 - 32 mmol/L LAB CHEMISTRY METHOD 07/29/2024 9:23 AM [facility] Anion Gap 4 3 - 11 LAB CHEMISTRY METHOD 07/29/2024 9:23 AM [facility] Glucose 84 70 - 100 mg/dL LAB CHEMISTRY METHOD 07/29/2024 9:23 AM [facility] BUN 20 5 - 25 mg/dL LAB CHEMISTRY METHOD 07/29/2024 9:23 AM [facility] Creatinine 1.19 0.70 - 1.30 mg/dL LAB CHEMISTRY METHOD 07/29/2024 9:23 AM [facility] eGFR 67 >=60 mL/min/1. 73m2 LAB CHEMISTRY METHOD 07/29/2024 9:23 AM [facility] Comment:Calculation based on the??Chronic Kidney Disease Epidemiology Collaboration (CKD-EPI) equation refit??without adjustment for race. BUN/Creatinine Ratio 16.8 LAB CHEMISTRY METHOD 07/29/2024 9:23 AM [facility] Calcium 9.0 8.5 - 10.5 mg/dL LAB CHEMISTRY METHOD 07/29/2024 9:23 AM [facility] AST (SGOT) 29 10 - 42 unit/L LAB CHEMISTRY METHOD 07/29/2024 9:23 AM [facility] ALT (SGPT) 42 10 - 60 unit/L LAB CHEMISTRY METHOD 07/29/2024 9:23 AM [facility] Alkaline Phosphatase 109 42 - 121 unit/L LAB CHEMISTRY METHOD 07/29/2024 9:23 AM [facility] Total Protein 6.6 6.0 - 8.0 g/dL LAB CHEMISTRY METHOD 07/29/2024 9:23 AM [facility] Albumin 3.9 3.2 - 5.0 g/dL LAB CHEMISTRY METHOD 07/29/2024 9:23 AM [facility] Total Bilirubin 0.4 0.0 - 1.4 mg/dL LAB CHEMISTRY METHOD 07/29/2024 9:23 AM [facility] Blood Venous blood specimen / Unknown Venipuncture / Unknown 07/29/2024 5:18 AM EST 07/29/2024 7:24 AM EST us Matthew Lynn MD LAB BLOOD ORDERABLES Final Resu lt [facility] ([facility] [address] [place] [address], documented in this encounter Visit Diagnoses Diagnosis Encounter for other general examination documented in this encounter Care Teams Care Partner Relationship Specialty Start Date End Date Ariana Sidhu MD [address] [place] [address] PCP - General Internal Medicine 04/22/15 documented as of this encounter
--- OUTSIDE RECORDS SUMMARY | 2024-09-12 18:29 | XMS_ITS | Clinical Summary ---
Author Organization [facility] Address [address] [place] [address] Care Team Providers Care Waste Reclaimer Name Role Phone Beni Moore MD Primary Care Provider [phone] Allergies Active Allergy Reactions Criticality Noted Date [...] age to complete this topic Care Teams Waste Reclaimer Relationship Specialty Start Date End Date Beni Moore MD PCP - General Internal Medicine 08/09/21
== END 2024-09-12 15:47 | disposition home or self-care (01) ==
LOC: HO.HUSH 14:38
PROVIDERS: PCP Nurse Practitioner Family; Visit Provider Urology
DX: Z13.9 Encounter for screening, unspecified (principal)

== ENCOUNTER 2024-09-13 15:16 | Outpatient (REF) | payer MEDICARE, SELFPAY ==
--- OUTSIDE RECORDS SUMMARY | 2024-09-13 16:31 | XMS_ITS | Encounter Summary ---
Author Organization [facility] Address [address] [place] [address] Care Team Providers Care Glass Crusher Name Role Phone Ariana Sidhu MD Primary Care Provider [phone] Encounter Details Date Type Department Care Team (Late st Contact Info) Description 07/23/2024 Lab Requisition [facility] - Main Lab [address] [facility] [place] [address] Matthew Lynn MD [address] [place] [phone] Encounter for other general examination Social History [...] Thyroid stimulating hormone (07/23/2024 5:35 AM EST) [facility] TSH 1.96 0.40 - 4.00 mcIU/mL LAB CHEMISTRY METHOD 07/23/2024 5:28 PM EST [facility] LAB Blood Venous blood specimen / Unknown Venipuncture / Unknown 07/23/2024 5:35 AM EST 07/23/2024 9:54 AM EST us Matthew Lynn MD LAB BLOOD ORDERABLES Final Resu lt [facility] LAB [address] [place] [address], [place] [phone] * (ABNORMAL) CBC auto differential (07/23/2024 5:35 AM EST) [facility] WBC 7.1 4.8 - 10.8 K/mcL LAB HEMETOLOGY METHOD 07/23/2024 10:44 AM [facility] LAB RBC 3.20(L) 4.50 - 5.50 M/mcL LAB HEMETOLOGY METHOD 07/23/2024 10:44 AM [facility] LAB Hemoglobin 10.3(L) 13.5 - 17.5 g/dL LAB HEMETOLOGY METHOD 07/23/2024 10:44 AM [facility] LAB Hematocrit 31.0(L) 42.0 - 54.0 % LAB HEMETOLOGY METHOD 07/23/2024 10:44 AM [facility] LAB MCV 97.8 79.0 - 98.0 FL LAB HEMETOLOGY METHOD 07/23/2024 10:44 AM [facility] LAB MCH 32.5(H) 27.0 - 32.0 pcg LAB HEMETOLOGY METHOD 07/23/2024 10:44 AM [facility] LAB MCHC 33.2 32.0 - 37.0 g/dL LAB HEMETOLOGY METHOD 07/23/2024 10:44 AM [facility] LAB RDW 17.6(H) 11.0 - 15.0 % LAB HEMETOLOGY METHOD 07/23/2024 10:44 AM [facility] LAB Platelets 554(H) 130 - 400 K/mcL LAB HEMETOLOGY METHOD 07/23/2024 10:44 AM [facility] LAB MPV 10.0 7.0 - 11.0 FL LAB HEMETOLOGY METHOD 07/23/2024 10:44 AM [facility] LAB NRBC 0.0 <1.0 % LAB HEMETOLOGY METHOD 07/23/2024 10:44 AM [facility] LAB NRBC Absolute 0.00 <0.10 K/mcL LAB HEMETOLOGY METHOD 07/23/2024 10:44 AM [facility] LAB Neutrophils Relative 39.3 % LAB HEMETOLOGY METHOD 07/23/2024 10:44 AM [facility] LAB Lymphocytes Relative 44.8 % LAB HEMETOLOGY METHOD 07/23/2024 10:44 AM [facility] LAB Monocytes Relative 13.1 % LAB HEMETOLOGY METHOD 07/23/2024 10:44 AM [facility] LAB Eosinophils Relative 1.6 % LAB HEMETOLOGY METHOD 07/23/2024 10:44 AM [facility] LAB Basophils Relative 0.6 % LAB HEMETOLOGY METHOD 07/23/2024 10:44 AM [facility] LAB Immature Granulocytes Relative 0.6 % LAB HEMETOLOGY METHOD 07/23/2024 10:44 AM [facility] LAB Neutrophils Absolute 2.79 1.50 - 7.00 K/mcL LAB HEMETOLOGY METHOD 07/23/2024 10:44 AM [facility] LAB Lymphocytes Absolute 3.17 1.00 - 5.00 K/mcL LAB HEMETOLOGY METHOD 07/23/2024 10:44 AM EST [facility] LAB Monocytes Absolute 0.93 0.20 - 1.00 K/[facility] LAB HEMETOLOGY METHOD 07/23/2024 10:44 AM EST [facility] LAB Eosinophils Absolute 0.11 0.00 - 0.50 K/[facility] LAB HEMETOLOGY METHOD 07/23/2024 10:44 AM EST [facility] LAB Basophils Absolute 0.04 0.00 - 0.20 K/[facility] LAB HEMETOLOGY METHOD 07/23/2024 10:44 AM EST [facility]) [facility] LAB Immature Granulocytes Absolute 0.04(H) 0.00 - 0.03 K/[facility] LAB HEMETOLOGY METHOD 07/23/2024 10:44 AM EST [facility] LAB Blood Venous blood specimen / Unknown Venipuncture / Unknown 07/23/2024 5:35 AM EST 07/23/2024 9:54 AM EST us Matthew Lynn MD LAB BLOOD ORDERABLES Final Resu lt Performing Organization Address City/[facility]/ZIP Co de Phone Number [facility] LAB [address] [place] [address], [place] [phone] * Magnesium (07/23/2024 5:35 AM EST) Magnesium 2.3 1.9 - 2.6 mg/dL LAB CHEMISTRY METHOD 07/23/2024 11:15 AM EST [facility] LAB Blood Venous blood specimen / Unknown Venipuncture / Unknown 07/23/2024 5:35 AM EST 07/23/2024 9:54 AM EST us Matthew Lynn MD LAB BLOOD ORDERABLES Final Resu lt [facility] LAB [address] [place] [address], [place] [phone] * (ABNORMAL) Comprehensive metabolic panel (07/23/2024 5:35 AM EST) Sodium 135 133 - 145 mmol/L LAB CHEMISTRY METHOD 07/23/2024 11:15 AM [facility] LAB Potassium 4.5 3.5 - 5.5 mmol/L LAB CHEMISTRY METHOD 07/23/2024 11:15 AM [facility] LAB Chloride 103 96 - 110 mmol/L LAB CHEMISTRY METHOD 07/23/2024 11:15 AM [facility] LAB CO2 25 21 - 32 mmol/L LAB CHEMISTRY METHOD 07/23/2024 11:15 AM [facility] LAB Anion Gap 7 3 - 11 LAB CHEMISTRY METHOD 07/23/2024 11:15 AM [facility] LAB Glucose 81 70 - 100 mg/dL LAB CHEMISTRY METHOD 07/23/2024 11:15 AM [facility] LAB BUN 19 5 - 25 mg/dL LAB CHEMISTRY METHOD 07/23/2024 11:15 AM [facility] LAB Creatinine 1.19 0.70 - 1.30 mg/dL LAB CHEMISTRY METHOD 07/23/2024 11:15 AM [facility] LAB eGFR 67 >=60 mL/min/1. 73m2 LAB CHEMISTRY METHOD 07/23/2024 11:15 AM [facility] LAB Comment:Calculation based on the??Chronic Kidney Disease Epidemiology Collaboration (CKD-EPI) equation refit??without adjustment for race. BUN/Creatinine Ratio 16.0 LAB CHEMISTRY METHOD 07/23/2024 11:15 AM [facility] LAB Calcium 8.8 8.5 - 10.5 mg/dL LAB CHEMISTRY METHOD 07/23/2024 11:15 AM [facility] LAB AST (SGOT) 66(H) 10 - 42 unit/L LAB CHEMISTRY METHOD 07/23/2024 11:15 AM [facility] LAB ALT (SGPT) 74(H) 10 - 60 unit/L LAB CHEMISTRY METHOD 07/23/2024 11:15 AM EST [facility] LAB Alkaline Phosphatase 120 42 - 121 unit/L LAB CHEMISTRY METHOD 07/23/2024 11:15 AM [facility] LAB Total Protein 6.9 6.0 - 8.0 g/dL LAB CHEMISTRY METHOD 07/23/2024 11:15 AM EST [facility] LAB Albumin 3.8 3.2 - 5.0 g/dL LAB CHEMISTRY METHOD 07/23/2024 11:15 AM [facility] LAB Total Bilirubin 0.4 0.0 - 1.4 mg/dL LAB CHEMISTRY METHOD 07/23/2024 11:15 AM [facility] LAB Blood Venous blood specimen / Unknown Venipuncture / Unknown 07/23/2024 5:35 AM EST 07/23/2024 9:54 AM EST us Matthew Lynn MD LAB BLOOD ORDERABLES Final Resu lt [facility] LAB [address] [place] [address], documented in this encounter Visit Diagnoses Diagnosis Encounter for other general examination documented in this encounter Care Teams Glass Crusher Relationship Specialty Start Date End Date Ariana Sidhu MD [address] [place] [address] PCP - General Internal Medicine 04/22/15 documented as of this encounter
--- OUTSIDE RECORDS SUMMARY | 2024-09-13 16:32 | XMS_ITS | Clinical Summary ---
Author Organization [facility] Facility Address [address] [address] Care Team Providers Care Physical Medicine Teacher Name Role Phone Unavailable Primary Care Provider [...] patient's age to complete this topic Insurance [facility] [place] [id number] [facility]
--- OUTSIDE RECORDS SUMMARY | 2024-09-13 16:32 | XMS_ITS | Clinical Summary ---
Author Organization [facility] Address [address] [place] [address] Care Team Providers Care Application Packaging Specialist Name Role Phone Beni Moore MD Primary Care Provider [phone] Allergies Active Allergy Reactions Criticality Noted Date [...] age to complete this topic Care Teams Application Packaging Specialist Relationship Specialty Start Date End Date Beni Moore MD PCP - General Internal Medicine 08/09/21
--- OUTSIDE RECORDS SUMMARY | 2024-09-13 16:32 | XMS_ITS | Clinical Summary ---
Author Organization [facility] [address] [place] [address] [place] [phone] Phone Care Team Providers Care Prepress Supervisor Name Role Phone Ariana Sidhu MD Primary Care Provider [phone] Allergies Active Allergy Reactions Criticality Noted Date [...] mcg by mouth daily. 08/06/2021 Active cloNIDine ([id number]) 0.1 mg/[address] 0.1 mg onto [...] Department Care Team Description 07/29/2024 Lab Requisition [facility] - Main Lab [address] [facility] [address] [place] [address] Matthew Lynn MD Encounter for other general examination 07/23/2024 Lab Requisition [facility] - Main Lab [address] [place] [address] Matthew Lynn MD Encounter for [...] (HCC); COMMENT: Due to delayed response after CT Fluctuation of weight DX:Fluctua tion of weight [...] % LAB HEMETOLOGY METHOD 07/29/2024 8:57 AM [facility] LAB MCV 98.2(H) 79.0 - 98.0 FL LAB HEMETOLOGY METHOD 07/29/2024 8:57 AM [facility] LAB MCH 31.8 27.0 - 32.0 pcg LAB HEMETOLOGY METHOD 07/29/2024 8:57 AM [facility] LAB MCHC 32.4 32.0 - 37.0 g/dL LAB HEMETOLOGY METHOD 07/29/2024 8:57 AM [facility] LAB RDW 18.1(H) 11.0 - 15.0 % LAB HEMETOLOGY METHOD 07/29/2024 8:57 AM [facility] LAB Platelets 531(H) 130 - 400 K/mcL LAB HEMETOLOGY METHOD 07/29/2024 8:57 AM [facility] LAB MPV 9.7 7.0 - 11.0 FL LAB HEMETOLOGY METHOD 07/29/2024 8:57 AM [facility] LAB NRBC 0.0 <1.0 % LAB HEMETOLOGY METHOD 07/29/2024 8:57 AM [facility] LAB NRBC Absolute 0.00 <0.10 K/mcL LAB HEMETOLOGY METHOD 07/29/2024 8:57 AM [facility] LAB Neutrophils Relative 36.8 % LAB HEMETOLOGY METHOD 07/29/2024 8:57 AM [facility] LAB Lymphocytes Relative 50.5 % LAB HEMETOLOGY METHOD 07/29/2024 8:57 AM [facility] LAB Monocytes Relative 10.2 % LAB HEMETOLOGY METHOD 07/29/2024 8:57 AM [facility] LAB Eosinophils Relative 1.8 % LAB HEMETOLOGY METHOD 07/29/2024 8:57 AM EST [facility] LAB Basophils Relative 0.4 % LAB HEMETOLOGY METHOD 07/29/2024 8:57 AM [facility] LAB Immature Granulocytes Relative 0.3 % LAB HEMETOLOGY METHOD 07/29/2024 8:57 AM [facility] LAB Neutrophils Absolute 2.63 1.50 - 7.00 K/mcL LAB HEMETOLOGY METHOD 07/29/2024 8:57 AM EST [facility] LAB Lymphocytes Absolute 3.61 1.00 - 5.00 K/mcL LAB HEMETOLOGY METHOD 07/29/2024 8:57 AM [facility] LAB Monocytes Absolute 0.73 0.20 - 1.00 K/mcL LAB HEMETOLOGY METHOD 07/29/2024 8:57 AM [facility] LAB Eosinophils Absolute 0.13 0.00 - 0.50 K/mcL LAB HEMETOLOGY METHOD 07/29/2024 8:57 AM EST [facility] LAB Basophils Absolute 0.03 0.00 - 0.20 K/mcL LAB HEMETOLOGY METHOD 07/29/2024 8:57 AM [facility] LAB Immature Granulocytes Absolute 0.02 0.00 - 0.03 K/mcL LAB HEMETOLOGY METHOD 07/29/2024 8:57 AM [facility] LAB Blood Venous blood specimen / Unknown Venipuncture / Unknown 07/29/2024 5:18 AM EST 07/29/2024 7:24 AM EST us Matthew Lynn MD LAB BLOOD ORDERABLES Final Resu lt [facility] LAB [address] [place] [address], * Magnesium (07/29/2024 5:18 AM EST) Only the most recent of2 resultswithin the time period is included. Magnesium 2.2 1.9 - 2.6 mg/dL LAB CHEMISTRY METHOD 07/29/2024 9:23 AM [facility] LAB Blood Venous blood specimen / Unknown Venipuncture / Unknown 07/29/2024 5:18 AM EST 07/29/2024 7:24 AM EST us Matthew Lynn MD LAB BLOOD ORDERABLES Final Resu lt [facility] LAB [address] [place] [address], [place] [phone] * Comprehensive metabolic panel (07/29/2024 5:18 AM EST) Only the most recent of2 resultswithin the time period is included. Sodium 137 133 - 145 mmol/L LAB CHEMISTRY METHOD 07/29/2024 9:23 AM [facility] LAB Potassium 4.8 3.5 - 5.5 mmol/L LAB CHEMISTRY METHOD 07/29/2024 9:23 AM [facility] LAB Chloride 103 96 - 110 mmol/L LAB CHEMISTRY METHOD 07/29/2024 9:23 AM [facility] LAB CO2 30 21 - 32 mmol/L LAB CHEMISTRY METHOD 07/29/2024 9:23 AM [facility] LAB Anion Gap 4 3 - 11 LAB CHEMISTRY METHOD 07/29/2024 9:23 AM [facility] LAB Glucose 84 70 - 100 mg/dL LAB CHEMISTRY METHOD 07/29/2024 9:23 AM [facility] LAB BUN 20 5 - 25 mg/dL LAB CHEMISTRY METHOD 07/29/2024 9:23 AM [facility] LAB Creatinine 1.19 0.70 - 1.30 mg/dL LAB CHEMISTRY METHOD 07/29/2024 9:23 AM [facility] LAB eGFR 67 >=60 mL/min/1. 73m2 LAB CHEMISTRY METHOD 07/29/2024 9:23 AM [facility] LAB Comment:Calculation based on the??Chronic Kidney Disease Epidemiology Collaboration (CKD-EPI) equation refit??without adjustment for race. BUN/Creatinine Ratio 16.8 LAB CHEMISTRY METHOD 07/29/2024 9:23 AM [facility] LAB Calcium 9.0 8.5 - 10.5 mg/dL LAB CHEMISTRY METHOD 07/29/2024 9:23 AM [facility] LAB AST (SGOT) 29 10 - 42 unit/L LAB CHEMISTRY METHOD 07/29/2024 9:23 AM [facility] LAB ALT (SGPT) 42 10 - 60 unit/L LAB CHEMISTRY METHOD 07/29/2024 9:23 AM [facility] LAB Alkaline Phosphatase 109 42 - 121 unit/L LAB CHEMISTRY METHOD 07/29/2024 9:23 AM [facility] LAB Total Protein 6.6 6.0 - 8.0 g/dL LAB CHEMISTRY METHOD 07/29/2024 9:23 AM [facility] LAB Albumin 3.9 3.2 - 5.0 g/dL LAB CHEMISTRY METHOD 07/29/2024 9:23 AM [facility] LAB Total Bilirubin 0.4 0.0 - 1.4 mg/dL LAB CHEMISTRY METHOD 07/29/2024 9:23 AM [facility] LAB Blood Venous blood specimen / Unknown Venipuncture / Unknown 07/29/2024 5:18 AM EST 07/29/2024 7:24 AM EST us Matthew Lynn MD LAB BLOOD ORDERABLES Final Resu lt [facility] LAB [address] [place] [address], * Thyroid stimulating hormone (07/23/2024 5:35 AM EST) TSH 1.96 0.40 - 4.00 mcIU/mL LAB CHEMISTRY METHOD 07/23/2024 5:28 PM EST [facility] Blood Venous blood specimen / Unknown Venipuncture / Unknown 07/23/2024 5:35 AM EST 07/23/2024 9:54 AM EST us Matthew Lynn MD LAB BLOOD ORDERABLES Final Resu lt [facility]) [facility] LAB [address] [place] [address], [place] [phone] * US ABDOMINAL AORTA REAL TIME SCREEN [...] abdominal aortic aneurysm. us Ariana Sidhu MD [facility] [place] PROCEDURES Final Result * (ABNORMAL) Lipid [...] Relevant to Health [place] [id number] MEDICARE Care Teams Prepress Supervisor Relationship Specialty Start Date End Date Ariana Sidhu MD [address] [place] [address] PCP - General Internal Medicine 04/22/15
--- OUTSIDE RECORDS SUMMARY | 2024-09-13 16:32 | XMS_ITS | Encounter Summary ---
Author Organization [facility] Address [address] [place] [address] Care Team Providers Care Emergency Department Physician Name Role Phone Ariana Sidhu MD Primary Care Provider [phone] Encounter Details Date Type Department Care Team (Late st Contact Info) Description 07/29/2024 Lab Requisition [facility] - Main Lab [address] [facility] [place] [address] Matthew Lynn MD [address] [place] [phone] Encounter for other general examination Social History [...] CBC auto differential (07/29/2024 5:18 AM EST) [facility] WBC 7.2 4.8 - 10.8 K/mcL LAB HEMETOLOGY METHOD 07/29/2024 8:57 AM [facility] LAB RBC 3.40(L) 4.50 - 5.50 M/mcL LAB HEMETOLOGY METHOD 07/29/2024 8:57 AM [facility] LAB Hemoglobin 10.7(L) 13.5 - 17.5 g/dL LAB HEMETOLOGY METHOD 07/29/2024 8:57 AM [facility] LAB Hematocrit 33.0(L) 42.0 - 54.0 % LAB HEMETOLOGY METHOD 07/29/2024 8:57 AM [facility] LAB MCV 98.2(H) 79.0 - 98.0 FL LAB HEMETOLOGY METHOD 07/29/2024 8:57 AM [facility] LAB MCH 31.8 27.0 - 32.0 pcg LAB HEMETOLOGY METHOD 07/29/2024 8:57 AM [facility] LAB MCHC 32.4 32.0 - 37.0 g/dL LAB HEMETOLOGY METHOD 07/29/2024 8:57 AM [facility] LAB RDW 18.1(H) 11.0 - 15.0 % LAB HEMETOLOGY METHOD 07/29/2024 8:57 AM [facility] LAB Platelets 531(H) 130 - 400 K/mcL LAB HEMETOLOGY METHOD 07/29/2024 8:57 AM [facility] LAB MPV 9.7 7.0 - 11.0 FL LAB HEMETOLOGY METHOD 07/29/2024 8:57 AM [facility] LAB NRBC 0.0 <1.0 % LAB HEMETOLOGY METHOD 07/29/2024 8:57 AM [facility] LAB NRBC Absolute 0.00 <0.10 K/mcL LAB HEMETOLOGY METHOD 07/29/2024 8:57 AM [facility] LAB Neutrophils Relative 36.8 % LAB HEMETOLOGY METHOD 07/29/2024 8:57 AM [facility] LAB Lymphocytes Relative 50.5 % LAB HEMETOLOGY METHOD 07/29/2024 8:57 AM [facility] LAB Monocytes Relative 10.2 % LAB HEMETOLOGY METHOD 07/29/2024 8:57 AM [facility] LAB Eosinophils Relative 1.8 % LAB HEMETOLOGY METHOD 07/29/2024 8:57 AM [facility] LAB Basophils Relative 0.4 % LAB HEMETOLOGY METHOD 07/29/2024 8:57 AM [facility] LAB Immature Granulocytes Relative 0.3 % LAB HEMETOLOGY METHOD 07/29/2024 8:57 AM [facility] LAB Neutrophils Absolute 2.63 1.50 - 7.00 K/mcL LAB HEMETOLOGY METHOD 07/29/2024 8:57 AM [facility] LAB Lymphocytes Absolute 3.61 1.00 - 5.00 K/mcL LAB HEMETOLOGY METHOD 07/29/2024 8:57 AM [facility] LAB Monocytes Absolute 0.73 0.20 - 1.00 K/mcL LAB HEMETOLOGY METHOD 07/29/2024 8:57 AM [facility] LAB Eosinophils Absolute 0.13 0.00 - 0.50 K/mcL LAB HEMETOLOGY METHOD 07/29/2024 8:57 AM [facility] LAB Basophils Absolute 0.03 0.00 - 0.20 K/mcL LAB HEMETOLOGY METHOD 07/29/2024 8:57 AM [facility] LAB Immature Granulocytes Absolute 0.02 0.00 - 0.03 K/mcL LAB HEMETOLOGY METHOD 07/29/2024 8:57 AM [facility] LAB Blood Venous blood specimen / Unknown Venipuncture / Unknown 07/29/2024 5:18 AM EST 07/29/2024 7:24 AM EST us Matthew Lynn MD LAB BLOOD ORDERABLES Final Resu lt [facility] LAB [address] [place] [address], [place] [phone] * Magnesium (07/29/2024 5:18 AM EST) Pathologist [facility] Magnesium 2.2 1.9 - 2.6 mg/dL LAB CHEMISTRY METHOD 07/29/2024 9:23 AM EST [facility] LAB Blood Venous blood specimen / Unknown Venipuncture / Unknown 07/29/2024 5:18 AM EST 07/29/2024 7:24 AM EST us Matthew Lynn MD LAB BLOOD ORDERABLES Final Resu lt [facility] LAB [address] [place] [address], [place] [phone] * Comprehensive metabolic panel (07/29/2024 5:18 AM EST) Pathologist [facility] Sodium 137 133 - 145 mmol/L LAB CHEMISTRY METHOD 07/29/2024 9:23 AM [facility] LAB Potassium 4.8 3.5 - 5.5 mmol/L LAB CHEMISTRY METHOD 07/29/2024 9:23 AM EST [facility] LAB Chloride 103 96 - 110 mmol/L LAB CHEMISTRY METHOD 07/29/2024 9:23 AM EST [facility] LAB CO2 30 21 - 32 mmol/L LAB CHEMISTRY METHOD 07/29/2024 9:23 AM [facility] LAB Anion Gap 4 3 - 11 LAB CHEMISTRY METHOD 07/29/2024 9:23 AM [facility] LAB Glucose 84 70 - 100 mg/dL LAB CHEMISTRY METHOD 07/29/2024 9:23 AM [facility] LAB BUN 20 5 - 25 mg/dL LAB CHEMISTRY METHOD 07/29/2024 9:23 AM [facility] LAB Creatinine 1.19 0.70 - 1.30 mg/dL LAB CHEMISTRY METHOD 07/29/2024 9:23 AM [facility] LAB eGFR 67 >=60 mL/min/1. 73m2 LAB CHEMISTRY METHOD 07/29/2024 9:23 AM [facility] LAB Comment:Calculation based on the??Chronic Kidney Disease Epidemiology Collaboration (CKD-EPI) equation refit??without adjustment for race. BUN/Creatinine Ratio 16.8 LAB CHEMISTRY METHOD 07/29/2024 9:23 AM [facility] LAB Calcium 9.0 8.5 - 10.5 mg/dL LAB CHEMISTRY METHOD 07/29/2024 9:23 AM [facility] LAB AST (SGOT) 29 10 - 42 unit/L LAB CHEMISTRY METHOD 07/29/2024 9:23 AM [facility] LAB ALT (SGPT) 42 10 - 60 unit/L LAB CHEMISTRY METHOD 07/29/2024 9:23 AM [facility] LAB Alkaline Phosphatase 109 42 - 121 unit/L LAB CHEMISTRY METHOD 07/29/2024 9:23 AM [facility] LAB Total Protein 6.6 6.0 - 8.0 g/dL LAB CHEMISTRY METHOD 07/29/2024 9:23 AM [facility] LAB Albumin 3.9 3.2 - 5.0 g/dL LAB CHEMISTRY METHOD 07/29/2024 9:23 AM [facility] LAB Total Bilirubin 0.4 0.0 - 1.4 mg/dL LAB CHEMISTRY METHOD 07/29/2024 9:23 AM [facility] LAB Blood Venous blood specimen / Unknown Venipuncture / Unknown 07/29/2024 5:18 AM EST 07/29/2024 7:24 AM EST us Matthew Lynn MD LAB BLOOD ORDERABLES Final Resu lt [facility] LAB [address] [place] [address], documented in this encounter Visit Diagnoses Diagnosis Encounter for other general examination documented in this encounter Care Teams Emergency Department Physician Relationship Specialty Start Date End Date Ariana Sidhu MD [address] [place] [address] PCP - General Internal Medicine 04/22/15 documented as of this encounter
[2024-09-17 03:08] LABS: Mumps Virus IgG Antibody <9.00 AU/mL; Rubeola IgG (Measles) >300.00 AU/mL
== END 2024-09-13 15:17 | disposition home or self-care (01) ==
LOC: HO.HMGCLDS 15:16
PROVIDERS: PCP Nurse Practitioner Family; Visit Provider Nurse Practitioner Family
DX: Z01.84 Encounter for antibody response examination (principal); Z28.39 Other underimmunization status
CPT/HCPCS: 36415; 86735; 86762; 86765

== ENCOUNTER 2024-11-07 14:58 | Outpatient (AMB) | payer MEDICARE, SELFPAY ==
[2024-11-07 15:12] VITALS: BP 100/62; PULSE 69; O2SAT 98; BMI 21.8
--- NOTE | 2024-11-07 15:12 | MHC.PC.OV ---
Vital Signs 11/07/24 15:12 Height 6 ft 1 in Weight 165 lb BMI 21.8 BP 100/62 Blood Pressure Location Rt brachial Position Sitting Pulse 69 Pulse Source Pulse Oximeter Pulse Oximetry (%) 98 Oxygen Delivery Method Room Air Intake Visit Reasons: [facility] Accompanied by: Spouse Allergies lisinopril Allergy (Mild, Verified 11/07/24 16:16) Unknown codeine Allergy (Verified 11/07/24 16:16) Unknown Medication List - Last Reconciled 11/07/24 by ANTONINA Coley- aspirin 1 tab PO DAILY atorvastatin 80 mg PO BEDTIME clopidogrel 75 mg PO DAILY lamotrigine 150 mg PO BID mecobalamin (vitamin B12) PO melatonin 10 mg PO BEDTIME metoprolol succinate ER 25 mg PO DAILY quetiapine 100 mg PO BID quetiapine 25 mg PO BID [rollator walker with seat and brakes As directed] sertraline 50 mg PO DAILY silodosin (Rapaflo) 4 mg PO DAILY 30 days thiamine HCl (vitamin B1) 100 mg PO DAILY [transport wheelchair with footrests As directed] trazodone 50 mg PO BEDTIME Tobacco use date assessed: 08/19/24 Fall risk assessment: 2 + Falls in past year Last assessed Fall Risk: 11/07/24 Dental Screening Dental Screen Date: 08/19/24 HPI [facility] HPI Details Chief Complaint The patient presents with confusion and recent history of falls. History of Present Illness The patient is a 69-year-old male presenting with confusion and possible follow-up after hospitalization for urinary tract infection and falls. The patient has an anoxic brain injury post-cardiac arrest contributing greatly to his medical history and current status. Prior to the latest episode of confusion, the patient experienced significant agitation and several falls, including one incident involving stairs that likely resulted in a head bruise. Reports and diagnostic imaging revealed no fractures of the head or cervical spine, and no significant cranial or spinal lesions. Confusion prompted the patient's to take him to the emergency room for further assessment. A urinary tract infection was suspected due to urinary symptoms, and he was treated accordingly with antibiotic therapy, specifically ceftiaxone. The patient's medical history is significant for various factors, including a mood disorder with delusions, prior tobacco use, on ASA and plavix, and underlying coronary artery disease. Post-discharge, the patient's condition includes decreased verbalization and ongoing care needs, with notable fading bruising in the upper extremities, hamstrings, and buttocks from falls. Pt's is his primary caregiver and with him 24-7. She reports he is currently back to baseline. Social History - The patient is mostly non-verbal and suffers from a mood disorder. - There is a history of prior tobacco use. - He is under 24/7 supervision and care from his . Health Maintenance Review of Systems from (primary caregiver) - Neurological: Reports confusion and behavioral agitation. - Musculoskeletal: Reports history of frequent falls. - Genitourinary: Reports history of urinary tract infection. - Psychiatric: Reports mood disorder with delusional thoughts. - Skin: Reports bruising on upper extremities, hands, chin, and buttocks. Physical Exam General: Cooperative, healthy appearing, comfortable, no acute distress and well developed Orientation: Patient mostly not verbal Limitations: mostly non verbal, looks around the room Head: Normal to inspection, no abnormality of the head Nose: Normal external nose present Face and sinus: Normal facial exam Eyes: Appearance normal, both eyes and all related structures Neck: Normal visual inspection and Yes full ROM, no abnormality of the cervical spine Respiratory: Normal respiratory effort and able to speak in complete sentences. Clear to auscultation bilaterally Cardiovascular: Regular rate and rhythm. Normal S1 and S2 GI: Normal to inspection. Soft to palpation and nontender Skin: Extensive bruising fading on arms, hamstrings. Neuro: Patient mostly not verbal Extremities: significant fading bruising on bilateral upper extremities, biceps region, forearm left upper forearm, dorsal aspect, and to bilat hamstring regions. scabing to left distal achillies region (previous bed sores from hospital) without s/s of infection. Results - CT scan of the head: No fractures or significant lesions. - CT scan of the abdomen and pelvis: No acute abnormalities. - CT scan of the cervical spine: No acute alignment issues. Plan The management plan focuses on monitoring after the patient's hospitalization for confusion and falls, correlating with his anoxic brain injury, mood disorder, and urinary tract infection. Continued treatment for the infection with ceftiaxone should be evaluated for effectiveness. An interdisciplinary approach may involve neurological assessments to gauge any changes in cognition and address the patient's historical brain injury, alongside potential psychiatric treatment for mood stabilization. Attention to environmental and supportive strategies in the home setting is warranted to minimize fall risk. Discussion Notes During the visit, I discussed with the patient and his the current management of his conditions. The necessary interventions for confusion related to anoxic brain injury, management of urinary tract infection with ceftiaxone, and strategies for reducing fall risks were thoroughly reviewed (treatment finished) I emphasized the importance of regular follow-up appointments to monitor these complex conditions and ensure patient safety at home, given his significant need for support and supervision. Patient Instructions - Continue to monitor for signs of recurrent urinary tract infection. - Follow care plan for minimizing fall risk at home. - Attend all follow-up appointments for ongoing management. - Ensure the environment is safe, with potential modifications to prevent falls. - Reach out to healthcare provider if there is increased confusion or new or worsening symptoms. [facility] Medical History Contusion of left chest wall Emphysema of lung BPH loc w urin obs/LUTS Neurogenic bladder Prostate nodule Ataxia Anoxic brain injury Epilepsy Compulsive behavior disorder Cardiac arrest Surgical History No pertinent past surgical history Social History Household Members: Unknown / Unable to assess Housing: Unknown / Unable to assess Alcohol intake: never Comment: constant conpanion at bedside Patient Tobacco Use Status: Former Tobacco user e-Cigarette/Vaping Use: Never Used Substance Use Type: Marijuana service: No Current occupational status: retired Cognitive needs: No Hearing needs: No Vision needs: No Questionnaire PHQ-9 Over the last 2 weeks, how often have you been bothered by any of the following problems? 1. Little interest or pleasure in doing things: not at all 2. Feeling down, depressed, or hopeless: not at all 3. Trouble falling or staying asleep, or sleeping too much: not at all 4. Feeling tired or having little energy: not at all 5. Poor appetite or overeating: not at all 6. Feeling bad about yourself - or that you are a failure or have let yourself or your family down: not at all 7. Trouble concentrating on things, such as reading the newspaper or watching television: not at all 8. Moving or speaking so slowly that other people could have noticed. Or the opposite - being so fidgety or restless that you have been moving around a lot more than usual: not at all 9. Thoughts that you would be better off or of hurting yourself in some way: not at all Total score: 0 Depression Screening Interpretation: Negative Depression Screening Done: Yes 64444 - PHQ-9 Billing: Yes Source: Developed by Drs. Musa Corado, Brandi Vo, Vinod Leblanc and colleagues, with an educational fani from [employer]. Thrive Questionnaire Date Thrive assessed: 08/19/24 I am a: Patient What is your living situation today?: I have a steady place to live Within the past 12 months, did the food you bought not last and you didn't have the money to get more?: I choose not to answer this question Within the past 12 months, did you worry whether your food would run out before you got money to buy more?: I choose not to answer this question Do you have trouble paying for medicines?: No Do you have trouble getting transportation to medical appointments?: No Do you have trouble paying your heating and electricity bill?: No Do you have trouble taking care of your child, family member or friend?: I choose not to answer this question Do you have trouble with day-to-day activities such as bathing, preparing meals, shopping, managing finances, etc.?: No Are you currently unemployed and looking for a job?: No Are you interested in more education?: No Please select the resources that you would like help with: None Currently or been in a relationship where the following occur: I choose not to answer THRIVE Score: 0 CRISTIAN-7 AMB Questionnaire CRISTIAN-7 Date CRISTIAN - 7 assessed: 08/19/24 Source: Developed by Drs. Musa Corado, Brandi Vo, Vinod Leblanc and colleagues, with an educational fani from [employer]. Physical exam (Primary Care) Vital Signs: Last Vital Signs Pulse 69 11/07/24 15:12 BP 100/62 11/07/24 15:12 Pulse Ox 98 11/07/24 15:12 Oxygen Delivery Method Room Air 11/07/24 15:12 BMI result Body Mass Index 21.8 Tobacco/Smoking Status: Tobacco use Status Tobacco use date assessed 08/19/24 11/07/24 15:17 Patient Tobacco Use Status Former Tobacco user 11/07/24 15:17 e-Cigarette/Vaping Use Never Used 11/07/24 15:17 PHQ-9: PHQ-9 Score PHQ-9: Total score 0 11/07/24 15:17 Depression Screening Interpretation: Negative Thrive Assessment: Date of Thrive Assessment Date Thrive assessed 08/19/24 11/07/24 15:17 Currently or been in a relationship where the following occur: I choose not to answer Coding Level of Care Code Est Pt Level 4 (35946) Diagnoses Major neurocognitive disorder as late effect of traumatic brain injury with behavioral disturbance S06.9X9S; F02.818 UTI (urinary tract infection) N39.0 Additional Codes PHQ-9 - 68351 - PHQ-9 Billing: Yes ([id number]) Assessment & Plan Assessment & Plan (1) Major neurocognitive disorder as late effect of traumatic brain injury with behavioral disturbance: Code(s): S06.9X9S - Unspecified intracranial injury with loss of consciousness of unspecified duration, sequela; F02.818 - Dementia in other diseases classified elsewhere, unspecified severity, with other behavioral disturbance Category: Medical (2) UTI (urinary tract infection): Code(s): N39.0 - Urinary tract infection, site not specified Category: Medical Plan .
--- OUTSIDE RECORDS SUMMARY | 2024-11-07 15:33 | XMS_ITS | Clinical Summary ---
Author Organization [facility] Facility Address [address] [address] Care Team Providers Care Renderer Name Role Phone Unavailable Primary Care Provider [...] Due Date Last Done Comments Pneumococcal Vaccine: 50+ Ye ars (1 of 2 - PCV) 1976 Colorectal Cancer Screening: Annual FOBT 2006 Colorectal Cancer Screening: Colonoscopy 2006 Colorectal Cancer Screening: Sigmoidoscopy 2006 Influenza Vaccine (Season Ended) 2025 Hepatitis B Vaccine Aged Out No longe r eligible based on patient's age to complete this topic Insurance [facility]
--- OUTSIDE RECORDS SUMMARY | 2024-11-07 15:33 | XMS_ITS | Clinical Summary ---
Author Organization [facility] Address [address] [place] [address] Care Team Providers Care Scheduling Specialist Name Role Phone Beni Moore MD Primary Care Provider [phone] Allergies Active Allergy Reactions Criticality Noted Date [...] age to complete this topic Care Teams Scheduling Specialist Relationship Specialty Start Date End Date Beni Moore MD PCP - General Internal Medicine 08/09/21
== END 2024-11-07 16:46 | disposition home or self-care (01) ==
LOC: HO.HMCC 14:59
PROVIDERS: PCP Nurse Practitioner Family; Visit Provider Nurse Practitioner Family
DX: S06.9X9S Unspecified intracranial injury with loss of consciousness of unspecified duration, sequela (principal); F02.818 Dementia in other diseases classified elsewhere, unspecified severity, with other behavioral disturbance; N39.0 Urinary tract infection, site not specified

== ENCOUNTER → 2024-11-07 14:58 | Outpatient (BNVA) | payer MEDICARE, SELFPAY | PROVIDERS: PCP Nurse Practitioner Family; Visit Provider Nurse Practitioner Family | DX: N39.0 Urinary tract infection, site not specified (principal); S06.9X9S Unspecified intracranial injury with loss of consciousness of unspecified duration, sequela; F02.818 Dementia in other diseases classified elsewhere, unspecified severity, with other behavioral disturbance | CPT/HCPCS: 96127; 99212 ==

== ENCOUNTER 2024-12-09 13:27 | Outpatient (AMB) | payer MEDICARE, SELFPAY ==
--- NOTE | 2024-12-09 13:45 | MHC.OFFVIS ---
Intake Visit Reasons: cysto Intake Note: Patient is present for cystoscopy Urology Medication:VITAMIN B12,VITAMIN B1 Antibiotic Allergy:NONE Blood Thinner:ASPIRIN Therapeutic Support Staff Required: No Allergies lisinopril Allergy (Mild, Verified 01/16/25 01:45) Unknown codeine Allergy (Verified 01/16/25 01:45) Unknown Medication List - Last Reconciled 12/09/24 by Bruna Spicer MD aspirin 1 tab PO DAILY atorvastatin 80 mg PO BEDTIME clopidogrel 75 mg PO DAILY diazepam 5 mg PO ONCE 1 day finasteride (Proscar) 5 mg PO DAILY lamotrigine 150 mg PO BID mecobalamin (vitamin B12) PO melatonin 10 mg PO BEDTIME metoprolol succinate ER 25 mg PO DAILY quetiapine 25 mg PO BID quetiapine 100 mg PO BID [rollator walker with seat and brakes As directed] sertraline 50 mg PO DAILY silodosin (Rapaflo) 4 mg PO DAILY 30 days thiamine HCl (vitamin B1) 100 mg PO DAILY [transport wheelchair with footrests As directed] trazodone 50 mg PO BEDTIME HPI Comments Details: 12/09/24--Cystoscopy findings: prostatic urethra trilobar enlargement, obstructive median lobe bulbous urethra WNL, no suspicious bladder lesions visualized History of Present Illness - The patient is a 69-year-old male presenting with urinary complications secondary to an enlarged prostate. - Patient history includes a STEMI in 2019, resulting in anoxic brain injury and improper CPR, causing persistent mobility and balance issues. - The patient experiences frequent falls due to balance impairment and uses a mobility aid not suited to his condition. - Ongoing problems with urination prompted by bladder thickening and prostate enlargement, observed through imaging. - Previous trial of tamsulosin was discontinued due to increased frequency of falls and dizziness. - Recent imaging noted suspicious bladder findings, suggesting a need for detailed investigation through cystoscopy. Urinary Symptoms Review - Bladder wall thickening. - Enlarged prostate contributing to urinary issues. - Difficulties initiating urination with an extended standing period before starting flow. - Noticeable urinary stream when able to void. - Previous use of tamsulosin resulted in significant dizziness and increased fall risk, leading to discontinuation. 09/12/24-- 69-year-old male presenting with genito-urinary issues secondary to recent hospitalization findings. Following a fall that resulted in an altered mental state, a Lunsford catheter was placed due to urinary difficulties, and a CT scan suggested a potential prostate nodule or bladder lesion. The catheter has since been removed, and current bladder scans show acceptable post-void residuals. His past medical history includes coronary artery disease and myocardial infarction, for which he is taking clopidogrel. There is a significant history of former tobacco use, with cessation in 2019. The patient experienced a delusional state during hospitalization likely exacerbated by a urinary tract infection and prior anoxic brain damage from his first heart attack, affecting his balance and causing frequent falls. Urinary Symptoms Review - Current urination restored post Lunsford catheter removal - Bladder scan indicates acceptable post-void residual - Delayed onset of urinary stream noted - Occasional incontinence with pooling of urine before voiding begins - Nocturnal symptoms not specifically reported Results - Tests: CT scan 06/27/24--A 1.1 cm probable prostate nodule is seen, projecting into the bladder base. Less likely, this could represent a bladder wall lesion. - Labs: Normal PSA screening during hospitalization [facility] Medical History Dementia Complex partial seizures Anxiety Seizure disorder Hypertension CAD (coronary artery disease) BPH loc w urin obs/LUTS Contusion of left chest wall Emphysema of lung Neurogenic bladder Prostate nodule Ataxia Anoxic brain injury Epilepsy Compulsive behavior disorder Cardiac arrest Surgical History No pertinent past surgical history Social History Household Members: Spouse Housing: House Do you presently have visiting nurse or other home services: No Alcohol intake: never Comment: 1-1 Patient Tobacco Use Status: Former Tobacco user Smoked in Last 30 Days: No e-Cigarette/Vaping Use: Never Used Use of substances other than those prescribed or required for medical reasons: Yes Substance Use Type: Marijuana Substance Use Frequency: Chronic Longstanding Currently Displaying Signs/Symptoms of Drug Intoxication Withdrawal: No Have you been hit, kicked, punched, or otherwise hurt by someone within the past year? If so, by whom?: No Do you feel safe in your current relationship?: Yes Is there a partner from a previous relationship who is making you feel unsafe now?: No Are you made to feel afraid or neglected: No (unable to answer cognitive disorder) Advance Directives: Yes Advance Directives on File: Yes Advance Directives Date on File: 07/04/24 Do you have thoughts of harming others: None Do you have a plan to hurt others: No Plan Recently lost weight without trying: Unsure Eating poorly because of decreased appetite: No Nutrition Risks: No Nutritional Risk Poor oral hygiene: No service: No Current occupational status: retired Sexual orientation: Straight/Heterosexual Cognitive needs: No Hearing needs: No Vision needs: No Review of Systems Const All systems reviewed & are unremarkable except as noted in HPI and below Reports no additional complaints Eyes Reports no additional complaints ENT Reports no additional complaints Card Reports no additional complaints Resp Reports no additional complaints GI Reports no additional complaints Reports as per HPI Musc Reports no additional complaints Skin/Breast Reports system reviewed and no additional complaints, except as documented Neuro Reports no additional complaints Psych Reports no additional complaints Endo Reports no additional complaints Brayan/Lymph Reports no additional complaints Aller/Immun Reports no additional complaints Office Procedures Cystoscopy Consent Discussed risk and benefit or proposed procedure with the patient. Information consent for procedure given to the patient. Discussed technical aspects, risks, benefits and alternatives in full. Addressed all of the patient's questions and concerns regarding the procedure. The patient demonstrated knowledge and understanding. They wish to proceed with this procedure. Preparation The patient was prepped in the usual manner. A gis programmer was present and in the room. Genitalia was prepped with betadine solution in a sterile manner. Lidocaine Jelly 2% was placed into the urethra and 16Fr flexible Olympus cystoscope was inserted into the meatus after adequate lubrication. Procedure Time out per protocol performed. The flexible cystoscope is passed transurethrally: The bladder was inspected in its entirety with utilization retroflexion displaying: Tumor(s): no suspicious bladder lesions visualized Trabeculation: Moderate with cellule changes, Mucosal Erthema: NA Orifices: normal shape and position Urethra: normal Cystoscopy findings: prostatic urethra trilobar enlargement, obstructive median lobe bulbous urethra WNL, no suspicious bladder lesions visualized [id number] DISPOSABLE SCOPE URO-G FLEXIBLE SCOPE Procedure code (CPT) selection complete Office Meds lidocaine HCl 2 % mucosal jelly in applicator Performing Provider: Bruna Spicer MD [facility] Administered by: Ronald Paige LPN on 12/09/24 14:11 Dose Route Admin Location Dispensed Lot Number Expiration Date NDC [employer] 10 mL intra-urethral 20 mL ciprofloxacin HCl 500 mg tablet Performing Provider: Bruna Spicer MD [facility] Administered by: Ronald Paige LPN on 12/09/24 14:11 Dose Route Admin Location Dispensed Lot Number Expiration Date NDC [employer] 500 mg PO 1 tab phenazopyridine 200 mg tablet Performing Provider: Bruna Spicer MD Performing Location[facility] Administered by: Ronald Paige LPN on 12/09/24 14:11 Dose Route Admin Location Dispensed Lot Number Expiration Date NDC [employer] 200 mg PO 1 tab Assessment & Plan Assessment & Plan (1) Major neurocognitive disorder as late effect of traumatic brain injury with behavioral disturbance: Code(s): S06.9X9S - Unspecified intracranial injury with loss of consciousness of unspecified duration, sequela; F02.818 - Dementia in other diseases classified elsewhere, unspecified severity, with other behavioral disturbance Category: Medical (2) BPH loc w urin obs/LUTS: Code(s): N40.1 - Benign prostatic hyperplasia with lower urinary tract symptoms Category: Medical Plan Plan - Conducted cystoscopy to evaluate urinary tract and prostate. - Initiate Finasteride regimen for prostate size reduction, monitoring for adverse reactions. - Ongoing assessment of prostate health. - Reassess treatment efficacy in 4-5 months. Orders: Orders AMB Cystoscopy 12/09/24 N40.1 - Benign prostatic hyperplasia with lower urinary tract symptoms Medications: New finasteride (Proscar) 5 mg PO DAILY 30 tabs 5RF Patient Instructions: The patient had an opportunity to ask questions regarding treatment plan. The patient expressed understanding and agreement with the above treatment plan. The patient is aware they should contact our office by phone for worsening of their current condition or the appearance of new symptoms. Compliance is encouraged with any medications and followup testing that is ordered. It is a privilege to be allowed the opportunity to participate in the urologic care of your patient. If you have any questions or concerns regarding treatment for the above conditions please do not hesitate to contact me. The office telephone contact is [phone]. This note is constructed in part using voice recognition software. While every effort has been made to ensure accuracy pallet stone inserter errors may have been included. Yours sincerely, Bruna Spicer MD Scribe Plan - Not visible on output: Patient was informed and verbally consented to the use of an ambient scribe for clinic note documentation during this visit. Coding Level of Care Code Est Pt Level 4 (52156) Diagnoses Major neurocognitive disorder as late effect of traumatic brain injury with behavioral disturbance S06.9X9S; F02.818 BPH loc w urin obs/LUTS N40.1 CPT Codes Cystoscopy - CPT: 95066-[id number] ([id number])
--- OUTSIDE RECORDS SUMMARY | 2024-12-09 15:10 | XMS_ITS | Encounter Summary ---
Author Organization [facility] Address [address] [place] [address] Care Team Providers Care Neurology Technician Name Role Phone Ariana Sidhu MD Primary Care Provider [phone] Encounter Details Date Type Department Care Team (Late st Contact Info) Description 07/23/[address] [facility] - Main Lab [address] [facility] [place] [address] Matthew Lynn MD [address] [place] [id number] Encounter for other general examination Social History [...] Thyroid stimulating hormone (07/23/2024 5:35 AM EST) [facility] TSH 1.96 0.40 - 4.00 mcIU/mL LAB CHEMISTRY METHOD 07/23/2024 5:28 PM EST [facility] Blood Venous blood specimen / Unknown Venipuncture / Unknown 07/23/2024 5:35 AM EST 07/23/2024 9:54 AM EST us Matthew Lynn MD LAB BLOOD ORDERABLES Final Resu lt [facility] [address] [place] [address], [place] [phone] * (ABNORMAL) CBC auto differential (07/23/2024 5:35 AM EST) [facility] WBC 7.1 4.8 - 10.8 K/mcL LAB HEMETOLOGY METHOD 07/23/2024 10:44 AM [facility] RBC 3.20(L) 4.50 - 5.50 M/mcL LAB HEMETOLOGY METHOD 07/23/2024 10:44 AM [facility] Hemoglobin 10.3(L) 13.5 - 17.5 g/dL LAB HEMETOLOGY METHOD 07/23/2024 10:44 AM [facility] Hematocrit 31.0(L) 42.0 - 54.0 % LAB HEMETOLOGY METHOD 07/23/2024 10:44 AM [facility] MCV 97.8 79.0 - 98.0 FL LAB HEMETOLOGY METHOD 07/23/2024 10:44 AM [facility] MCH 32.5(H) 27.0 - 32.0 pcg LAB HEMETOLOGY METHOD 07/23/2024 10:44 AM [facility] MCHC 33.2 32.0 - 37.0 g/dL LAB HEMETOLOGY METHOD 07/23/2024 10:44 AM [facility] RDW 17.6(H) 11.0 - 15.0 % LAB HEMETOLOGY METHOD 07/23/2024 10:44 AM [facility] Platelets 554(H) 130 - 400 K/mcL LAB HEMETOLOGY METHOD 07/23/2024 10:44 AM [facility] MPV 10.0 7.0 - 11.0 FL LAB HEMETOLOGY METHOD 07/23/2024 10:44 AM [facility] NRBC 0.0 <1.0 % LAB HEMETOLOGY METHOD 07/23/2024 10:44 AM [facility] NRBC Absolute 0.00 <0.10 K/mcL LAB HEMETOLOGY METHOD 07/23/2024 10:44 AM [facility] Neutrophils Relative 39.3 % LAB HEMETOLOGY METHOD 07/23/2024 10:44 AM [facility] Lymphocytes Relative 44.8 % LAB HEMETOLOGY METHOD 07/23/2024 10:44 AM [facility] Monocytes Relative 13.1 % LAB HEMETOLOGY METHOD 07/23/2024 10:44 AM [facility] Eosinophils Relative 1.6 % LAB HEMETOLOGY METHOD 07/23/2024 10:44 AM [facility] Basophils Relative 0.6 % LAB HEMETOLOGY METHOD 07/23/2024 10:44 AM [facility] Immature Granulocytes Relative 0.6 % LAB HEMETOLOGY METHOD 07/23/2024 10:44 AM [facility] Neutrophils Absolute 2.79 1.50 - 7.00 K/mcL LAB HEMETOLOGY METHOD 07/23/2024 10:44 AM [facility] Lymphocytes Absolute 3.17 1.00 - 5.00 K/mcL LAB HEMETOLOGY METHOD 07/23/2024 10:44 AM EST [facility] Monocytes Absolute 0.93 0.20 - 1.00 K/[facility] LAB HEMETOLOGY METHOD 07/23/2024 10:44 AM EST [facility] Eosinophils Absolute 0.11 0.00 - 0.50 K/[facility] LAB HEMETOLOGY METHOD 07/23/2024 10:44 AM EST [facility] Basophils Absolute 0.04 0.00 - 0.20 K/[facility] LAB HEMETOLOGY METHOD 07/23/2024 10:44 AM EST [facility] Immature Granulocytes Absolute 0.04(H) 0.00 - 0.03 K/[facility] LAB HEMETOLOGY METHOD 07/23/2024 10:44 AM EST [facility] Blood Venous blood specimen / Unknown Venipuncture / Unknown 07/23/2024 5:35 AM EST 07/23/2024 9:54 AM EST us Matthew Lynn MD LAB BLOOD ORDERABLES Final Resu lt Performing Organization Address City/[facility]/ZIP Co de Phone Number [facility] [address] [place] [address], [place] [phone] * Magnesium (07/23/2024 5:35 AM EST) Magnesium 2.3 1.9 - 2.6 mg/dL LAB CHEMISTRY METHOD 07/23/2024 11:15 AM EST [facility] Blood Venous blood specimen / Unknown Venipuncture / Unknown 07/23/2024 5:35 AM EST 07/23/2024 9:54 AM EST us Matthew Lynn MD LAB BLOOD ORDERABLES Final Resu lt [facility] [address] [place] [address], [place] [phone] * (ABNORMAL) Comprehensive metabolic panel (07/23/2024 5:35 AM EST) Sodium 135 133 - 145 mmol/L LAB CHEMISTRY METHOD 07/23/2024 11:15 AM [facility] Potassium 4.5 3.5 - 5.5 mmol/L LAB CHEMISTRY METHOD 07/23/2024 11:15 AM [facility] Chloride 103 96 - 110 mmol/L LAB CHEMISTRY METHOD 07/23/2024 11:15 AM [facility] CO2 25 21 - 32 mmol/L LAB CHEMISTRY METHOD 07/23/2024 11:15 AM [facility] Anion Gap 7 3 - 11 LAB CHEMISTRY METHOD 07/23/2024 11:15 AM [facility] Glucose 81 70 - 100 mg/dL LAB CHEMISTRY METHOD 07/23/2024 11:15 AM [facility] BUN 19 5 - 25 mg/dL LAB CHEMISTRY METHOD 07/23/2024 11:15 AM [facility] Creatinine 1.19 0.70 - 1.30 mg/dL LAB CHEMISTRY METHOD 07/23/2024 11:15 AM [facility] eGFR 67 >=60 mL/min/1. 73m2 LAB CHEMISTRY METHOD 07/23/2024 11:15 AM [facility] Comment:Calculation based on the??Chronic Kidney Disease Epidemiology Collaboration (CKD-EPI) equation refit??without adjustment for race. BUN/Creatinine Ratio 16.0 LAB CHEMISTRY METHOD 07/23/2024 11:15 AM [facility] Calcium 8.8 8.5 - 10.5 mg/dL LAB CHEMISTRY METHOD 07/23/2024 11:15 AM [facility] AST (SGOT) 66(H) 10 - 42 unit/L LAB CHEMISTRY METHOD 07/23/2024 11:15 AM [facility] ALT (SGPT) 74(H) 10 - 60 unit/L LAB CHEMISTRY METHOD 07/23/2024 11:15 AM EST [facility] Alkaline Phosphatase 120 42 - 121 unit/L LAB CHEMISTRY METHOD 07/23/2024 11:15 AM [facility] Total Protein 6.9 6.0 - 8.0 g/dL LAB CHEMISTRY METHOD 07/23/2024 11:15 AM EST [facility] Albumin 3.8 3.2 - 5.0 g/dL LAB CHEMISTRY METHOD 07/23/2024 11:15 AM [facility] Total Bilirubin 0.4 0.0 - 1.4 mg/dL LAB CHEMISTRY METHOD 07/23/2024 11:15 AM [facility] Blood Venous blood specimen / Unknown Venipuncture / Unknown 07/23/2024 5:35 AM EST 07/23/2024 9:54 AM EST us Matthew Lynn MD LAB BLOOD ORDERABLES Final Resu lt [facility] [address] [place] [address], documented in this encounter Visit Diagnoses Diagnosis Encounter for other general examination documented in this encounter Care Teams Neurology Technician Relationship Specialty Start Date End Date Ariana Sidhu MD [address] [place] [address] PCP - General Internal Medicine 04/22/15 documented as of this encounter
== END 2024-12-09 14:36 | disposition home or self-care (01) ==
LOC: HO.HUSH 13:28
PROVIDERS: PCP Nurse Practitioner Family; Visit Provider Urology
DX: N40.1 Benign prostatic hyperplasia with lower urinary tract symptoms (principal)
CPT/HCPCS: 52000; 99214

== ENCOUNTER → 2024-12-09 13:27 | Outpatient (BNVA) | payer MEDICARE, SELFPAY | PROVIDERS: PCP Nurse Practitioner Family; Visit Provider Urology | DX: N40.0 Benign prostatic hyperplasia without lower urinary tract symptoms (principal); S06.9X9D Unspecified intracranial injury with loss of consciousness of unspecified duration, subsequent encounter; F02.818 Dementia in other diseases classified elsewhere, unspecified severity, with other behavioral disturbance; Z79.82 Long term (current) use of aspirin; Z79.899 Other long term (current) drug therapy; Z91.81 History of falling | CPT/HCPCS: 52000; 99212 ==

== ENCOUNTER 2025-01-07 20:52 | Emergency (ER) | payer MEDICARE, SELFPAY ==
--- NOTE | ~2025-01-07 | CT_ITS ---
CLINICAL HISTORY: fall CT head without contrast Comparison: Head CT from 06/26/2024 Findings: No acute intracranial hemorrhage. No midline shift or hydrocephalus. Mild volume loss is generalized. 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 No large arterial territorial infarction by CT. Mild white matter lesions likely due to combination of the small-vessel ischemic disease and wallerian degeneration. Mucosal thickening of the imaged remodeled paranasal sinuses with atelectasis and retention cysts of the right maxillary sinus. Metal artifacts noted including from metal of the mouth. Trace right mastoid effusion. No acute skull fracture. Imaged nasal bone deformities appear old/chronic IMPRESSION: 1. No acute intracranial abnormality by CT. This document has been electronically signed by: Roque Orellana MD on 01/08/2025 01:57:28
--- NOTE | ~2025-01-07 | CT_ITS ---
CLINICAL HISTORY: Fall left upper quadrant bruising CT abdomen and pelvis with contrast Comparison: None provided Findings: Left dorsal 9th, 10th, and 11th rib fractures appear old/chronic in the [id number]. Mild bibasilar atelectasis. Mild cardiomegaly is partially imaged. Mild periportal edema present. No acute solid abdominal organ injury. Spleen approaches the upper limits of normal. Mild bilateral adrenal hyperplasia. No hydronephrosis. Gallbladder is unremarkable for CT mild volume loss of the pancreas noted. No enlarged lymphadenopathy. No small bowel obstruction. Fluid in the small bowel loops can be seen with enteritis. Severe stool burden is present, including the cecum. Appendicolith present without findings of acute appendicitis (imaged 462 of series 9). Mild pelvis deformities appear old/chronic. No acute pelvic fracture. Artifacts noted including from positioning left upper extremity and superficial metal. Degenerative changes include disc bulge calcification L4-L5 and multifocal facet arthropathy by CT. Schmorl's nodes are also multifocal including imaged thoracic vertebrae upper endplates of the L2 and L4. Mild wall thickening of the urinary bladder is nonspecific. The prostate gland measures 4.5 cm transverse. IMPRESSION: 1. No acute solid abdominal organ injury. 2. Imaged rib deformities appear old/chronic. 3. No acute pelvic fracture. 4. Severe stool burden. No small bowel obstruction. 5. Mild wall thickening of the urinary bladder is nonspecific. This document has been electronically signed by: Roque Orellana MD on 01/08/2025 01:51:01
[2025-01-07 21:01] VITALS: BP 116/80; PULSE 66; O2SAT 95
[2025-01-07 21:07] VITALS: BP 134/84; PULSE 66; RESP 16; TEMP 37.5; O2SAT 94; BMI 21.3
--- NOTE | 2025-01-07 21:26 | ED.AMS ---
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 Seizure disorder no fever no chills no rash no upper respiratory symptoms no cough Related Data Home Medications ?Medication ?Instructions ?Recorded ?Confirmed lamotrigine 150 mg tablet 150 mg PO BID 08/21/23 12/09/24 sertraline 50 mg tablet 50 mg PO DAILY 08/21/23 12/09/24 trazodone 50 mg tablet 50 mg PO BEDTIME 08/21/23 12/09/24 aspirin 81 mg chewable tablet 1 tab PO DAILY 09/01/23 12/09/24 atorvastatin 80 mg tablet 80 mg PO BEDTIME 09/01/23 12/09/24 melatonin 10 mg tablet 10 mg PO BEDTIME 06/27/24 12/09/24 mecobalamin (vitamin B12) PO 08/19/24 12/09/24 quetiapine 25 mg tablet 25 mg PO BID 08/19/24 12/09/24 thiamine HCl (vitamin B1) 100 mg 100 mg PO DAILY 08/19/24 12/09/24 tablet quetiapine 100 mg tablet 100 mg PO BID 11/07/24 12/09/24 Previous Rx's ?Medication ?Instructions ?Recorded rollator walker with seat and #1 ea 07/08/24 brakes transport wheelchair with footrests #1 ea 07/08/24 clopidogrel 75 mg tablet 75 mg PO DAILY #90 tabs 08/19/24 silodosin 4 mg capsule (Rapaflo) 4 mg PO DAILY 30 days #30 caps 10/28/24 diazepam 5 mg tablet 5 mg PO ONCE 1 day #1 tab 11/07/24 finasteride 5 mg tablet (Proscar) 5 mg PO DAILY #30 tabs 12/09/24 metoprolol succinate 25 mg 25 mg PO DAILY #90 tabs 12/14/24 tablet,extended release 24 hr Allergies Allergy/AdvReac Type Severity Reaction Status Date / Time lisinopril Allergy Mild Unknown Verified 01/07/25 21:09 codeine Allergy Unknown Verified 01/07/25 21:09 Review of Systems Review of Systems: Yes Unobtainable due to mental status PMFSH Past Medical History Medical History BPH loc w urin obs/LUTS Contusion of left chest wall Emphysema of lung Neurogenic bladder Prostate nodule Ataxia Anoxic brain injury Epilepsy Compulsive behavior disorder Cardiac arrest Surgical History No pertinent past surgical history Social History Social History Household Members: Unknown / Unable to assess Housing: Unknown / Unable to assess Alcohol intake: never Comment: constant conpanion at bedside Patient Tobacco Use Status: Former Tobacco user Smoked in Last 30 Days: No e-Cigarette/Vaping Use: Never Used Use of substances other than those prescribed or required for medical reasons: No Substance Use Type: Marijuana Advance Directives: No Advance Directives Information Provided: No Do you have a plan to hurt others: No Plan service: No Current occupational status: retired Cognitive needs: No Hearing needs: No Vision needs: No Physical Exam ED Vital Signs: Vital Signs - 24 hr 01/07/25 21:07 Temperature 99.5 F Pulse Rate 66 Respiratory Rate 16 Blood Pressure 134/84 Pulse Oximetry 94 Oxygen Delivery Method Room Air BMI result Body Mass Index 21.3 Appearance: Alert. Oriented X1-2 No acute distress. Eyes: PERRLA, No Nystagmus ENT: Pharynx normal. Oral Mucosa moist Neck: Normal inspection. Neck supple. CVS: Normal heart rate and rhythm. Pulses normal. Respiratory: No respiratory distress. Equal air entry bilateral, no wheezing/rales/rhonchi Abdomen: Soft and nontender. Bowel sounds are present, no mass palpable, no CVA tenderness Skin: Skin warm and dry. Ecchymosis left iliac chest area nontender Normal skin turgor. Extremities: No lower extremity edema. No calf tenderness Neuro: Oriented X1-2. No motor deficit. No sensory deficit.No cerebellar signs , cranial nerves II-XII intact Medications Administered Discontinued Medications Generic Name Dose Route Start Last Admin Trade Name Lizzy PRN Reason Stop Dose Admin Sodium Chloride 1,000 mls @ 999 mls/hr 01/07/25 21:45 01/07/25 22:17 Ns IV 01/07/25 22:45 999 mls/hr .Q1H1M ONE Administration Iohexol 85 ml 01/07/25 23:40 01/07/25 23:42 Iohexol 350 Mg/Ml 100 Ml Infus..Btl IV 01/07/25 23:41 85 ml ONCE ONE Administration Medical Decision Making Medical Decision Making [facility] Narrative: Patient's increasing confusion according to wipes but workup so far is negative CT scan of the head abdominal CT also negative awaiting for the urine CBC and chemistry also normal Likely patient's condition is because of TBI/medication patient's saying that after taking finasteride patient has been behaving like this had history of similar presentation when he took the another medication for BPH. Will advised patient to follow with urologist Differential Diagnosis Differential Diagnoses: The differential diagnosis associated with the presentation includes Metabolic encephalopathy/UTI/medication side effect Admission/Observation Consideration of admission/observation: Escalation of care including admission/observation considered Lab Data [facility] Lab Attestation statement: I reviewed the patient's lab results. 01/07/25 22:15 01/07/25 22:15 Labs: Lab Results 01/07/25 Range/Units 22:15 WBC 8.8 (4.8-10.8) X10*3/uL RBC 3.81 L (4.60-5.80) X10*6/uL Hgb 12.1 L (14.0-18.0) g/dl Hct 34.8 L (42.0-52.0) % MCV 91.3 (80.0-98.0) fL MCH 31.8 (27.0-33.0) pg MCHC 34.8 (31.0-36.0) g/dl RDW 16.4 H (11.0-16.0) % Plt Count 330 (160-400) X10*3/uL MPV 9.7 (9.4-12.4) fL Immature Gran % (Auto) 0.2 (0.0-0.4) % Neut % (Auto) 65.0 (45-73) % Lymph % (Auto) 26.6 (20-40) % [place] % (Auto) 6.7 (2-11) % Eos % (Auto) 1.3 (0-4) % Baso % (Auto) 0.2 (0-2) % Lymph # (Auto) 2.3 (1.2-4.9) X10*3/uL [place] # (Auto) 0.6 (0.1-1.2) X10*3/uL Eos # (Auto) 0.1 (0.0-0.4) X10*3/uL Baso # (Auto) 0.0 (0.0-0.2) X10*3/uL Abs Immat Gran (auto) 0.02 (0.00-0.03) X10*3/uL Absolute Neuts (auto) 5.7 (2.0-8.3) x10*3/uL Absolute Nucleated RBC 0.000 (0.0-0.012) X10*3/uL Nucleated RBC % (auto) 0.0 (0.0-0.2) /100WBC Sodium 142 (135-145) mmol/L Potassium 3.5 (3.3-5.1) mmol/L Chloride 108 (96-108) mmol/L Carbon Dioxide 28 (22-29) mmol/L Anion Gap 10 L (12-20) BUN 12 (9-16) mg/dL Creatinine 1.18 (0.5-1.4) mg/dL Estim Creat Clear Calc 57.9 Estimated GFR > 60 Random Glucose 108 (60-115) mg/dL Calcium 9.0 (8.4-10.2) mg/dL Magnesium 1.9 (1.6-2.6) mg/dL Total Bilirubin 0.5 (0.0-1.0) mg/dL AST 38 H (5-37) U/L ALT 18 (0-40) U/L Alkaline Phosphatase 129 H (39-117) U/L Total Protein 7.0 (6.5-8.0) g/dL Albumin 4.5 (3.5-5.0) g/dL Independent Interpretation I performed an independent interpretation of an: CT Scan Radiology Impression Discussion of test interpretation with radiology: I have reviewed the radiologist's reading. Radiologist Impression: No acute, severe constipation Discharge Plan Discharge Clinical Impression: Chronic confusional state Patient Disposition: Still a Patient Instructions: Altered Mental Status (ED) Additional Instructions: Your confusion is likely from TBI Prescriptions: No Action (DME) rollator walker with seat and brakes See Rx Instructions .Route .MEDSUPPLY Qty: 1 0RF Rx Instructions: As directed (DME) transport wheelchair with footrests See Rx Instructions .Route .MEDSUPPLY Qty: 1 0RF Rx Instructions: As directed silodosin [Rapaflo] 4 mg capsule 4 mg PO DAILY 30 Days Qty: 30 2RF Rx Instructions: must administer with a meal/food metoprolol succinate 25 mg tablet extended release 24 hr 25 mg PO DAILY Qty: 90 2RF atorvastatin 80 mg tablet 80 mg PO BEDTIME aspirin 81 mg tablet,chewable 1 tab PO DAILY melatonin 10 mg Tablet 10 mg PO BEDTIME quetiapine 25 mg tablet 25 mg PO BID Rx Instructions: 125 mg in AM and 150 mg in PM trazodone 50 mg tablet 50 mg PO BEDTIME lamotrigine 150 mg tablet 150 mg PO BID sertraline 50 mg tablet 50 mg PO DAILY finasteride [Proscar] 5 mg tablet 5 mg PO DAILY Qty: 30 5RF quetiapine 100 mg tablet 100 mg PO BID Rx Instructions: 125mg in the am, 150mg at night diazepam 5 mg tablet 5 mg PO ONCE 1 Days Qty: 1 0RF Rx Instructions: please take one tab 45 minutes before cystoscopy procedure thiamine HCl (vitamin B1) 100 mg tablet 100 mg PO DAILY mecobalamin (vitamin B12) PO clopidogrel 75 mg tablet 75 mg PO DAILY Qty: 90 3RF Print Language: [place]ill[place]
--- OUTSIDE RECORDS SUMMARY | 2025-01-07 21:26 | XMS_ITS | Clinical Summary ---
Author Organization [facility] Address [address] [place] [address] Care Team Providers Care Sludge Mill Operator Name Role Phone Beni Moore MD Primary Care Provider [phone] Allergies Active Allergy Reactions Criticality Noted Date [...] 57 08/13/2021 9:29 AM EST Temperature 36.4 C (97.6 F) 08/13/2021 9:29 AM EST Respiratory Rate - - Oxygen Saturation 100% [...] season) 2024 10/20/2020, 09/29/2020 Influenza Vaccine (#1) 2025 03/22/2021 DTap / Tdap / Td (2 - Td or Tdap) 08/08/2028 08/08/2018 RSV Adult > 60+ Yrs or (1 - 1-dose 75+ series) 2032 Hepatitis B Vaccines Aged Out No long er eligible based on patient's age to complete this topic RSV Ped < 20 months Aged Out No longe r eligible based on patient's age to complete this topic Care Teams Sludge Mill Operator Relationship Specialty Start Date End Date Beni Moore MD PCP - General Internal Medicine 08/09/21
--- OUTSIDE RECORDS SUMMARY | 2025-01-07 21:26 | XMS_ITS | Clinical Summary ---
Author Organization [facility] Address [address] [address] Care Team Providers Care Ground Crew Linesman Name Role Phone Unavailable Primary Care Provider [...] Cancer Screening: Sigmoidoscopy 2006 Influenza Vaccine (#1) 2025 Hepatitis B Vaccine Aged Out No longe r eligible based on patient's age to complete this topic Insurance [facility]
--- OUTSIDE RECORDS SUMMARY | 2025-01-07 21:26 | XMS_ITS | Encounter Summary ---
Author Organization [facility] Address [address] [place] [address] Care Team Providers Care Rehabilitation Specialist Name Role Phone Ariana Sidhu MD Primary Care Provider [phone] Encounter Details Date Type Department Care Team (Late st Contact Info) Description 07/23/2024 Lab Requisition [facility] - Main Lab [address] [facility] [place] [address] Matthew Lynn MD [address] [place] [id number] Encounter for other general examination Social History [...] Thyroid stimulating hormone (07/23/2024 5:35 AM EST) [facility] TSH 1.96 0.40 - 4.00 mcIU/mL LAB CHEMISTRY METHOD 07/23/2024 5:28 PM EST [facility] Blood Venous blood specimen / Unknown Venipuncture / Unknown 07/23/2024 5:35 AM EST 07/23/2024 9:54 AM EST us Matthew Lynn MD LAB BLOOD ORDERABLES Final Resu lt [facility] [address] [place] [address], [place] [phone] * (ABNORMAL) CBC auto differential (07/23/2024 5:35 AM EST) [facility] WBC 7.1 4.8 - 10.8 K/mcL LAB HEMETOLOGY METHOD 07/23/2024 10:44 AM [facility] RBC 3.20(L) 4.50 - 5.50 M/mcL LAB HEMETOLOGY METHOD 07/23/2024 10:44 AM [facility] Hemoglobin 10.3(L) 13.5 - 17.5 g/dL LAB HEMETOLOGY METHOD 07/23/2024 10:44 AM [facility] Hematocrit 31.0(L) 42.0 - 54.0 % LAB HEMETOLOGY METHOD 07/23/2024 10:44 AM [facility] MCV 97.8 79.0 - 98.0 FL LAB HEMETOLOGY METHOD 07/23/2024 10:44 AM [facility] MCH 32.5(H) 27.0 - 32.0 pcg LAB HEMETOLOGY METHOD 07/23/2024 10:44 AM [facility] MCHC 33.2 32.0 - 37.0 g/dL LAB HEMETOLOGY METHOD 07/23/2024 10:44 AM [facility] RDW 17.6(H) 11.0 - 15.0 % LAB HEMETOLOGY METHOD 07/23/2024 10:44 AM [facility] Platelets 554(H) 130 - 400 K/mcL LAB HEMETOLOGY METHOD 07/23/2024 10:44 AM [facility] MPV 10.0 7.0 - 11.0 FL LAB HEMETOLOGY METHOD 07/23/2024 10:44 AM [facility] NRBC 0.0 <1.0 % LAB HEMETOLOGY METHOD 07/23/2024 10:44 AM [facility] NRBC Absolute 0.00 <0.10 K/mcL LAB HEMETOLOGY METHOD 07/23/2024 10:44 AM [facility] Neutrophils Relative 39.3 % LAB HEMETOLOGY METHOD 07/23/2024 10:44 AM [facility] Lymphocytes Relative 44.8 % LAB HEMETOLOGY METHOD 07/23/2024 10:44 AM [facility] Monocytes Relative 13.1 % LAB HEMETOLOGY METHOD 07/23/2024 10:44 AM [facility] Eosinophils Relative 1.6 % LAB HEMETOLOGY METHOD 07/23/2024 10:44 AM [facility] Basophils Relative 0.6 % LAB HEMETOLOGY METHOD 07/23/2024 10:44 AM [facility] Immature Granulocytes Relative 0.6 % LAB HEMETOLOGY METHOD 07/23/2024 10:44 AM [facility] Neutrophils Absolute 2.79 1.50 - 7.00 K/mcL LAB HEMETOLOGY METHOD 07/23/2024 10:44 AM [facility] Lymphocytes Absolute 3.17 1.00 - 5.00 K/mcL LAB HEMETOLOGY METHOD 07/23/2024 10:44 AM EST [facility] Monocytes Absolute 0.93 0.20 - 1.00 K/[facility] LAB HEMETOLOGY METHOD 07/23/2024 10:44 AM EST [facility] Eosinophils Absolute 0.11 0.00 - 0.50 K/[facility] LAB HEMETOLOGY METHOD 07/23/2024 10:44 AM EST [facility] Basophils Absolute 0.04 0.00 - 0.20 K/[facility] LAB HEMETOLOGY METHOD 07/23/2024 10:44 AM EST [facility] Immature Granulocytes Absolute 0.04(H) 0.00 - 0.03 K/[facility] LAB HEMETOLOGY METHOD 07/23/2024 10:44 AM EST [facility] Blood Venous blood specimen / Unknown Venipuncture / Unknown 07/23/2024 5:35 AM EST 07/23/2024 9:54 AM EST us Matthew Lynn MD LAB BLOOD ORDERABLES Final Resu lt Performing Organization Address City/[facility]/ZIP Co de Phone Number [facility] [address] [place] [address], [place] [phone] * Magnesium (07/23/2024 5:35 AM EST) Magnesium 2.3 1.9 - 2.6 mg/dL LAB CHEMISTRY METHOD 07/23/2024 11:15 AM EST [facility] Blood Venous blood specimen / Unknown Venipuncture / Unknown 07/23/2024 5:35 AM EST 07/23/2024 9:54 AM EST us Matthew Lynn MD LAB BLOOD ORDERABLES Final Resu lt [facility] [address] [place] [address], [place] [phone] * (ABNORMAL) Comprehensive metabolic panel (07/23/2024 5:35 AM EST) Sodium 135 133 - 145 mmol/L LAB CHEMISTRY METHOD 07/23/2024 11:15 AM [facility] Potassium 4.5 3.5 - 5.5 mmol/L LAB CHEMISTRY METHOD 07/23/2024 11:15 AM [facility] Chloride 103 96 - 110 mmol/L LAB CHEMISTRY METHOD 07/23/2024 11:15 AM [facility] CO2 25 21 - 32 mmol/L LAB CHEMISTRY METHOD 07/23/2024 11:15 AM [facility] Anion Gap 7 3 - 11 LAB CHEMISTRY METHOD 07/23/2024 11:15 AM [facility] Glucose 81 70 - 100 mg/dL LAB CHEMISTRY METHOD 07/23/2024 11:15 AM [facility] BUN 19 5 - 25 mg/dL LAB CHEMISTRY METHOD 07/23/2024 11:15 AM [facility] Creatinine 1.19 0.70 - 1.30 mg/dL LAB CHEMISTRY METHOD 07/23/2024 11:15 AM [facility] eGFR 67 >=60 mL/min/1. 73m2 LAB CHEMISTRY METHOD 07/23/2024 11:15 AM [facility] Comment:Calculation based on the Chronic Kidney Disease Epidemiology Collaboration (CKD-EPI) equation refit without adjustment for race. BUN/Creatinine Ratio 16.0 LAB CHEMISTRY METHOD 07/23/2024 11:15 AM [facility] Calcium 8.8 8.5 - 10.5 mg/dL LAB CHEMISTRY METHOD 07/23/2024 11:15 AM [facility] AST (SGOT) 66(H) 10 - 42 unit/L LAB CHEMISTRY METHOD 07/23/2024 11:15 AM [facility] ALT (SGPT) 74(H) 10 - 60 unit/L LAB CHEMISTRY METHOD 07/23/2024 11:15 AM EST [facility] Alkaline Phosphatase 120 42 - 121 unit/L LAB CHEMISTRY METHOD 07/23/2024 11:15 AM EST [facility] Total Protein 6.9 6.0 - 8.0 g/dL LAB CHEMISTRY METHOD 07/23/2024 11:15 AM EST [facility] Albumin 3.8 3.2 - 5.0 g/dL LAB CHEMISTRY METHOD 07/23/2024 11:15 AM [facility] Total Bilirubin 0.4 0.0 - 1.4 mg/dL LAB CHEMISTRY METHOD 07/23/2024 11:15 AM [facility] Blood Venous blood specimen / Unknown Venipuncture / Unknown 07/23/2024 5:35 AM EST 07/23/2024 9:54 AM EST us Matthew Lynn MD LAB BLOOD ORDERABLES Final Resu lt [facility] [address] [place] [address], [place] [phone] documented in this encounter Visit Diagnoses Diagnosis Encounter for other general examination documented in this encounter Care Teams Rehabilitation Specialist Relationship Specialty Start Date End Date Ariana Sidhu MD [address] [place] [address] PCP - General Internal Medicine 04/22/15 documented as of this encounter
[2025-01-07 22:19] LABS: MANUAL DIFF FLAG NO
[2025-01-07 22:20] LABS: Hematocrit 34.8 % (42.0-52.0); Hemoglobin 12.1 g/dl (14.0-18.0); Imm Gran Abs Auto 0.02 X10*3/uL (0.00-0.03); Imm Gran Pct Auto 0.2 % (0.0-0.4); Lymphocytes Absolute Auto 2.3 X10*3/uL (1.2-4.9); Mean Corpuscular HGB Conc 34.8 g/dl (31.0-36.0); Mean Corpuscular Hemoglobin 31.8 pg (27.0-33.0); Mean Corpuscular Volume 91.3 fL (80.0-98.0); NRBC Abs Auto 0.000 X10*3/uL (0.0-0.012); NRBC Pct Auto 0.0 /100WBC (0.0-0.2); Platelet Count 330 X10*3/uL (160-400); Red Blood Count 3.81 X10*6/uL (4.60-5.80); White Blood Count 8.8 X10*3/uL (4.8-10.8)
[2025-01-07 22:32] LABS: Alanine Aminotransferase 18 U/L (0-40); Albumin Level 4.5 g/dL (3.5-5.0); Alkaline Phosphatase 129 U/L (39-117); Anion Gap 10 (12-20); Aspartate Amino Transferase 38 U/L (5-37); Blood Urea Nitrogen 12 mg/dL (9-16); Calcium 9.0 mg/dL (8.4-10.2); Carbon Dioxide 28 mmol/L (22-29); Chloride 108 mmol/L (96-108); Creatinine Clr Calc Pharmacy 57.9; Estimated Glomerular Filt Rate > 60; Magnesium 1.9 mg/dL (1.6-2.6); Potassium 3.5 mmol/L (3.3-5.1); Sodium 142 mmol/L (135-145); Total Protein 7.0 g/dL (6.5-8.0)
[2025-01-07] MEDS: iohexoL 350 MG/ML 100 ML INFUS..BTL 85 ML IV (23:42)
[2025-01-08] VITALS (7 sets, daily range): BP systolic 117–141; BP diastolic 54–99; PULSE 54–89; RESP 13–18; TEMP 36.2–37.1; O2SAT 93–97
[2025-01-08 02:25] LABS: Appearance Urine Clear; Glucose Urine UA Negative (Negative); PH 6.5 (5.0-9.0); Specific Gravity - Urine >= 1.030 (1.005-1.025)
--- NOTE | 2025-01-08 05:53 | PC.NURSE ---
pt requires frequent reminder of why he is here. forgetful. alert, oriented to person. calm in bed at this time
--- NOTE | 2025-01-08 07:15 | PC.NURSE ---
assumed care of patient at 0645, patient is awake and alert, resp even and unlabored. patient given breakfast tray, sitting up and eating breakfast at this time.
--- NOTE | 2025-01-08 10:19 | PC.NURSE ---
Pt spouse at bedside, requesting pt receive home medications prior to d/c. MD notified and present at bedside, plan of care reviewed with family. Pt home medications pending pharmacy verification
[2025-01-08] MEDS: Metoprolol Succinate ER 25 MG TAB.ER.24H PO (10:34)
[2025-01-08 12:51] LABS: Glucose, Whole Blood 85 mg/dL (60-115)
--- NOTE | 2025-01-08 12:54 | PC.NURSE ---
this RN gave orthotic and prosthetic technician rj permission to get patient oob and ambulate to bathroom, patient ambulated this AM to bathroom with no difficulty. patient attempted to ambulated to bathroom with tech and was noted to be very tremulous, weak and diaphoretic. patient max assist back into bed. patient placed back on tele monitor, VSS, poc noted to be 85. patient tremors are new, ED provider at bedside for patient status change
--- NOTE | 2025-01-08 15:18 | P.CNPS_ITS ---
History of Present Illness Date of Service: 01/08/2025 Chief Complaint: AMS Requesting physician: Bryan Chang Discussed with referring provider: Yes Sources of Information: patient interviewed, chart reviewed and crisis/core team assessment reviewed HPI Narrative: Mr. Nam is a 69 year-old male with hx of anoxic brain injury, major neurocognitive disorder as result of such injury along with microvascular changes and overall atrophy. He was brought by his who is main caregiver due to patient presenting as more confused. Pertinent laboratory completed in the ED include CBC with no leukocytosis, normocytic anemia, which seems chronic with stable H&H (12.1/34.8 respectively). CMP with no electrolyte imbalances, BUN 12, Cr 1.18, creatinine clearance 57.9. UA >1.030, no signs of UTI. Utox not completed but in the past has been positive for THC. He is known to this technical publications writer through previous assessment last year back in 09/2023 due to paranoia and increase combative behaviors. Back then at baseline, pt was oriented only to self with periods of being able to tell that he was in a hospital but not oriented to situation, month nor year. He also had severe impairments in ability to retain new information. Pt seen in the ED with by his side. Pt is lying in bed without acute distress. He reports he is in the hospital. He does not know why. He also does not know the month and year which has been baseline since last time he was seen by this technical publications writer last year. He denies any physical discomfort. No overt signs of psychosis or delusions. Per , pt presented as more confused. She reports he got out of the house and felt and neighbors called him. We discussed that his dementia is advanced and at baseline his orientation is impaired and prone to getting lost if left alone. HIs gait has been also very poor with shuffling gait, bilat resting tremor of upper extremities has also been there since last time he was seen by this technical publications writer last year. No overt paranoid delusions. His wants to bring him back home and reports her plan is to continue caring for him. We discussed that he needs 24/7 supervision. He can't be left alone at this point. [facility] Medical History BPH loc w urin obs/LUTS Contusion of left chest wall Emphysema of lung Neurogenic bladder Prostate nodule Ataxia Anoxic brain injury Epilepsy Compulsive behavior disorder Cardiac arrest Surgical History No pertinent past surgical history Diagnostics Vital Signs (24Hr): Vital Signs - 24 hr 01/07/25 21:07 01/08/25 04:22 01/08/25 09:29 Temperature 99.5 F 98.8 F 98.4 F Pulse Rate 66 54 66 Respiratory Rate 16 14 18 Blood Pressure 134/84 141/82 H 121/74 Pulse Oximetry 94 95 96 Oxygen Delivery Method Room Air Room Air Room Air 01/08/25 10:34 01/08/25 12:11 01/08/25 12:49 Temperature 97.2 F 97.5 F Pulse Rate 69 89 70 Respiratory Rate 15 14 Blood Pressure 117/54 L 121/85 125/99 H Pulse Oximetry 95 97 Oxygen Delivery Method Room Air Room Air 01/08/25 15:02 Temperature 98.2 F Pulse Rate 65 Respiratory Rate 13 Blood Pressure 119/75 Pulse Oximetry 93 Oxygen Delivery Method Room Air BMI result Body Mass Index 21.3 Labs 01/07/25 22:15 01/07/25 22:15 Labs: Laboratory Results - last 48 hr 01/07/25 01/08/25 01/08/25 22:15 02:13 12:47 WBC 8.8 RBC 3.81 L Hgb 12.1 L Hct 34.8 L MCV 91.3 MCH 31.8 MCHC 34.8 RDW 16.4 H Plt Count 330 MPV 9.7 Immature Gran % (Auto) 0.2 Neut % (Auto) 65.0 Lymph % (Auto) 26.6 [place] % (Auto) 6.7 Eos % (Auto) 1.3 Baso % (Auto) 0.2 Lymph # (Auto) 2.3 [place] # (Auto) 0.6 Eos # (Auto) 0.1 Baso # (Auto) 0.0 Abs Immat Gran (auto) 0.02 Absolute Neuts (auto) 5.7 Absolute Nucleated RBC 0.000 Nucleated RBC % (auto) 0.0 Sodium 142 Potassium 3.5 Chloride 108 Carbon Dioxide 28 Anion Gap 10 L BUN 12 Creatinine 1.18 Estim Creat Clear Calc 57.9 Estimated GFR > 60 POC Glucose 85 Random Glucose 108 Calcium 9.0 Magnesium 1.9 Total Bilirubin 0.5 AST 38 H ALT 18 Alkaline Phosphatase 129 H Total Protein 7.0 Albumin 4.5 Urine Color Yellow Urine Appearance Clear Urine pH 6.5 Ur Specific [place] >= 1.030 H Urine Protein Trace Urine Glucose (UA) Negative Urine Ketones Negative Urine Blood Negative Urine Nitrite Negative Ur Leukocyte Esterase Negative Medications Medications Current Medications Clopidogrel Bisulfate (Clopidogrel Bisulfate 75 Mg Tablet) 75 mg PO DAILY [facility] Last Admin: 01/08/25 10:33 Dose: 75 mg Lamotrigine (Lamotrigine 25 Mg Tablet) 150 mg PO BID [facility] Last Admin: 01/08/25 10:33 Dose: 150 mg Metoprolol Succinate (Metoprolol Succinate Er 25 Mg Tab.Er.24h) 25 mg PO DAILY [facility]; Protocol Last Admin: 01/08/25 10:34 Dose: 25 mg Quetiapine Fumarate (Quetiapine Fumarate 100 Mg Tablet) 100 mg PO BID [facility] Last Admin: 01/08/25 10:33 Dose: 100 mg Sertraline HCl (Sertraline Hcl 50 Mg Tablet) 50 mg PO DAILY [facility] Last Admin: 01/08/25 10:33 Dose: 50 mg Allergies Allergies Allergy/AdvReac Type Severity Reaction Status Date / Time lisinopril Allergy Mild Unknown Verified 01/07/25 21:09 codeine Allergy Unknown Verified 01/07/25 21:09 Assessment & Plan Assessment & Plan (1) Major neurocognitive disorder as late effect of traumatic brain injury with behavioral disturbance: Status: Acute Code(s): S06.9X9S - Unspecified intracranial injury with loss of consciousness of unspecified duration, sequela; F02.818 - Dementia in other diseases classified elsewhere, unspecified severity, with other behavioral disturbance Plan Mr. Nam is a 69 year-old male with hx of anoxic brain injury, dementia as results of this lesion along with microvascular changes and global cerebral atrophy. He was brought due to confusion. Medical work up reassuring in terms of no acute findings. He is known to this technical publications writer through previous assessment for paranoid delusions back in 09/2023. At that time, pt noted to be oriented mostly to self although having periods of knowing that he is in the hospital but did not know why. He presents similarly as he did last year. He currently does NOT present with s/s of delirium. No psychosis or delusions noted either. reports her plan is to continue caring for him. He does need 24/7 supervision. His gait has also been impaired for a long time with parkinsonian features including resting tremors bilat of upper extremities, shuffling gait. He is followed by Dr. Hernandez. PLAN 1. No acute neuropsychiatric symptoms s/s to dementia that require inpatient psych. 2. wants to bring pt back home. Total time managing care of this patient today ____ minutes.
== END 2025-01-08 16:03 | disposition still patient (30) ==
PROVIDERS: Internal Medicine; Emergency Provider Emergency Medicine; PCP Nurse Practitioner Family
DX: R41.0 Disorientation, unspecified (principal); S70.12XD Contusion of left thigh, subsequent encounter; S20.212D Contusion of left front wall of thorax, subsequent encounter; W19.XXXD Unspecified fall, subsequent encounter; I10 Essential (primary) hypertension; R56.9 Unspecified convulsions; Z86.74 Personal history of sudden cardiac arrest; Z87.820 Personal history of traumatic brain injury; Z79.899 Other long term (current) drug therapy
CPT/HCPCS: 36415; 70450; 74177; 80053; 81003; 82947; 83735; 85025; 96360; 99284; 99285; Q9967

== ENCOUNTER → 2025-01-07 21:19 | Outpatient (BNV) | payer MEDICARE, SELFPAY | PROVIDERS: Emergency Provider Emergency Medicine; PCP Nurse Practitioner Family; Visit Provider Social Worker | DX: F03.918 Unspecified dementia, unspecified severity, with other behavioral disturbance (principal); S06.9X9S Unspecified intracranial injury with loss of consciousness of unspecified duration, sequela | CPT/HCPCS: 99284 ==

== ENCOUNTER → 2025-01-07 21:46 | Outpatient (BNV) | payer MEDICARE, SELFPAY | PROVIDERS: Emergency Provider Internal Medicine; PCP Nurse Practitioner Family; Visit Provider Radiology Neuroradiology | DX: K56.41 Fecal impaction (principal); R41.82 Altered mental status, unspecified; W19.XXXA Unspecified fall, initial encounter | CPT/HCPCS: 70450; 74177 ==

== ENCOUNTER 2025-01-16 01:26 | Inpatient (IN) | payer MEDICARE, SELFPAY ==
[2025-01-16] VITALS (7 sets, daily range): BP systolic 127–180; BP diastolic 71–100; PULSE 58–65; RESP 18; TEMP 36.3–36.9; O2SAT 96–98; BMI 19.2
[2025-01-16 02:49] LABS: Hematocrit 34.3 % (42.0-52.0); Hemoglobin 11.5 g/dl (14.0-18.0); Imm Gran Abs Auto 0.02 X10*3/uL (0.00-0.03); Imm Gran Pct Auto 0.2 % (0.0-0.4); Lymphocytes Absolute Auto 2.3 X10*3/uL (1.2-4.9); MANUAL DIFF FLAG NO; Mean Corpuscular HGB Conc 33.5 g/dl (31.0-36.0); Mean Corpuscular Hemoglobin 30.8 pg (27.0-33.0); Mean Corpuscular Volume 92.0 fL (80.0-98.0); NRBC Abs Auto 0.000 X10*3/uL (0.0-0.012); NRBC Pct Auto 0.0 /100WBC (0.0-0.2); Platelet Count 378 X10*3/uL (160-400); Red Blood Count 3.73 X10*6/uL (4.60-5.80); White Blood Count 8.8 X10*3/uL (4.8-10.8)
[2025-01-16 03:11] LABS: Acetaminophen LAB < 3 mcg/mL (<30); Salicylate < 5.0 mg/dL (15-30)
[2025-01-16 03:14] LABS: Alanine Aminotransferase 22 U/L (0-40); Albumin Level 4.4 g/dL (3.5-5.0); Alkaline Phosphatase 121 U/L (39-117); Anion Gap 14 (12-20); Aspartate Amino Transferase 36 U/L (5-37); Blood Urea Nitrogen 11 mg/dL (9-16); Calcium 8.7 mg/dL (8.4-10.2); Carbon Dioxide 28 mmol/L (22-29); Chloride 105 mmol/L (96-108); Creatinine Clr Calc Pharmacy 53.4; Estimated Glomerular Filt Rate 58; Potassium 3.7 mmol/L (3.3-5.1); Sodium 143 mmol/L (135-145); Total Protein 6.8 g/dL (6.5-8.0)
--- NOTE | 2025-01-16 05:58 | ED_ITS ---
HPI - General Adult General Chief complaint: Behavioral Concerns Stated complaint: AMS found knocking on neighbors doors by PD Time Seen by Provider: 01/16/25 05:52 Source: patient and EMS Mode of arrival: EMS Limitations: no limitations and other (Dementia) History of Present Illness ED Provider: Dr. Char Balderas HPI narrative: Patient comes to the emergency room via ambulance. Patient was found by neighbors knocking on the doors, patient's went to get him but he did not want to go with her. Here in the emergency room, patient is awake and alert, states he has no complaints, feels well. Related Data Home Medications ?Medication ?Instructions ?Recorded ?Confirmed lamotrigine 150 mg tablet 150 mg PO BID 08/21/2301/16 sertraline 50 mg tablet 50 mg PO BEDTIME 08/21/23 trazodone 50 mg tablet 50 mg PO BEDTIME 08/21/23 aspirin 81 mg chewable tablet 1 tab PO DAILY 09/01/23 01/16/25 atorvastatin 80 mg tablet 80 mg PO BEDTIME 09/01/23 melatonin 10 mg tablet 10 mg PO BEDTIME 06/27/24 quetiapine 25 mg tablet 25 mg PO DAILY 08/19/2412/31 thiamine HCl (vitamin B1) 100 mg 100 mg PO DAILY 08/1901/16/25 tablet quetiapine 100 mg tablet 100 mg PO BID 11/07/2401/16 calcium polycarbophil 625 mg 625 mg PO DAILY 01/16/25 01/16/25 tablet (Fiber (calcium polycarbophil)) cyanocobalamin (vitamin B-12) 1,000 mcg PO DAILY 01/1601/16/25 1,000 mcg tablet melatonin 10 mg tablet 10 mg PO DAILY PRN Sleep 01/16/25 quetiapine 25 mg tablet 50 mg PO BEDTIME 01/16/25 Previous Rx's ?Medication ?Instructions ?Recorded rollator walker with seat and #1 ea 07/08/24 brakes transport wheelchair with footrests #1 ea 07/08/24 clopidogrel 75 mg tablet 75 mg PO DAILY #90 tabs 08/03 01/24 finasteride 5 mg tablet (Proscar) 5 mg PO DAILY #30 ta bs 12/09/24 metoprolol succinate 25 mg 25 mg PO DAILY #90 tabs tablet,extended release 24 hr Allergies Allergy/AdvReac Type Severity Reaction Status Date / Time lisinopril Allergy Mild Unknown Verified 01/16/25 01:45 codeine Allergy Unknown Verified 01/16/25 01:45 Review of Systems 2 Review of Systems: Constitutional : No Weight loss, No Fever, No Chills, No Night Sweats, No Fatigue, No Malaise ENT/Mouth : No Hearing loss, No Ear Pain, No Nasal Congestion, No Sinus Pain, No Hoarseness, No sore throat, No Rhinorrhea, No Swallowing Difficulty Eyes: No Eye Pain, No Swelling, No Redness, No Foreign Body, No Discharge, No Vision Changes Cardiovascular : No Chest Pain, No SOB, No Dyspnea on Exertion, No Orthopnea, No Edema, No Palpitations Respiratory : No Cough, No Sputum, No Wheezing, No Smoke Exposure, No Dyspnea Gastrointestinal : No Nausea, No Vomiting, No Diarrhea, No Constipation, No abdominal Pain, No Hematochezia, No Melena Genitourinary : no irregular bleeding, No Dysuria, No Urinary Frequency, No Hematuria, No Urinary Incontinence, No Urgency, No Flank Pain, No Urinary Flow Changes, No Hesitancy Musculoskeletal : No joint pain, No Myalgias, No Joint Swelling Skin : No Skin Lesions, No rash Neuro : No Weakness, No Numbness, No Paresthesias, No Loss of Consciousness, No Dizziness, No Headache Psych : No Anxiety/Panic, No Depression, No SI/HI/AH/VH, No Social Issues, Heme/Lymph: No Bruising, No Bleeding,No Lymphadenopathy Endocrine : No Polyuria, No Polydipsia, No Temperature Intolerance [facility] Past Medical History Medical History Dementia Complex partial seizures Anxiety Seizure disorder Hypertension CAD (coronary artery disease) BPH loc w urin obs/LUTS Contusion of left chest wall Emphysema of lung Neurogenic bladder Prostate nodule Ataxia Anoxic brain injury Epilepsy Compulsive behavior disorder Cardiac arrest Surgical History No pertinent past surgical history Social History Social History Household Members: Spouse Housing: House Do you presently have visiting nurse or other home services: No Alcohol intake: never Comment: close obs. Patient Tobacco Use Status: Former Tobacco user Smoked in Last 30 Days: No e-Cigarette/Vaping Use: Never Used Use of substances other than those prescribed or required for medical reasons: Yes Substance Use Type: Marijuana Substance Use Frequency: Chronic Longstanding Currently Displaying Signs/Symptoms of Drug Intoxication Withdrawal: No Have you been hit, kicked, punched, or otherwise hurt by someone within the past year? If so, by whom?: No Do you feel safe in your current relationship?: Yes Is there a partner from a previous relationship who is making you feel unsafe now?: No Are you made to feel afraid or neglected: No (unable to answer cognitive disorder) Advance Directives: Yes Advance Directives on File: Yes Advance Directives Date on File: 07/04/24 Do you have thoughts of harming others: None Do you have a plan to hurt others: No Plan Recently lost weight without trying: Unsure Eating poorly because of decreased appetite: No Nutrition Risks: No Nutritional Risk Poor oral hygiene: No service: No Current occupational status: retired Cognitive needs: No Hearing needs: No Vision needs: No Physical Exam ED Vital Signs: Vital Signs - 24 hr 01/21/25 14:48 01/21/25 15:10 01/21/25 15:31 Temperature 95 F L Pulse Rate 119 H 94 Respiratory Rate 22 H Blood Pressure 85/73 L 94/61 Pulse Oximetry 100 Oxygen Delivery Method Room Air 01/21/25 17:42 Temperature 98.2 F Pulse Rate 80 Respiratory Rate Blood Pressure 107/64 Pulse Oximetry 95 Oxygen Delivery Method Room Air BMI result Body Mass Index 19.2 Const Other: Appearance: Alert. Oriented X2. No acute distress. Eyes: Pupils equal, round and reactive to light. ENT: Pharynx normal. Neck: Normal inspection. Neck supple. No lymph nodes noted. No crepitus CVS: Normal heart rate and rhythm. Pulses normal. Normal S1 and S2 Respiratory: No respiratory distress. Breath sounds normal. No Wheezing. No rales Abdomen: Soft and nontender. No rigidity. No distention. Skin: Skin warm and dry. Normal skin color. Normal skin turgor. Extremities: No lower extremity edema. No Lacerations. No Rash Neuro: Oriented X 2. No motor deficit. No sensory deficit. Moving all extremities. No slurred speech. CN 2 through 12 grossly intact Psych: calm, cooperative, normal affect Course Course Course Narrative: Patient has history of dementia, patient coming in for confusion. Patient was evaluated by Psychiatry 1 week ago. Patient has history of anoxic brain injury, dementia. Patient was diagnosed with chronic confusion nose state This was discussed with the patient's family. Patient's was agreeable to taking home. 01/16/2025 Patsy Dixon PA-C ---> Observation continues. Patient being followed by case management. 01/16/2025 Patsy Dixon PA-C ---> Patient became agitated, yelling, attempting to get out of bed, quite unsteady on feet / unsafe. IM Zyprexa given. Attempted to call the patient's , no asnwer. Time: 08:09 Date: 01/17/25 Provider: Lynne Vieyra CNP Patient in physician observation for case management needs, history of anoxic brain injury recently diagnosed dementia from Neurology. Neurologist feels long-term care as necessary, patient's has been provided assistance for financial counselors as well as application for [employer]. Anticipating discharge home today with , [facility] to reach out for further assistance, and referral to [facility] has been placed. No current issues or complaints. VS stable. Will continue to monitor. --- 16:00. Upon chart review, patient had neurology consultation yesterday 01/16/2025, felt that he likely had multifactorial encephalopathy , no obvious metabolic abnormality on his metabolic profile, however recommending ammonia level be obtained as well as obtaining an EEG return place orders for, in addition to holding some of his medications including trazodone, sertraline, quetiapine will obtained psych consultation. I reviewed this with the hospitalist Dr. Linton, we did not feel that he required inpatient admission for evaluation at this time. --- 18:11 ammonia level is normal, pending EEG, made oncoming provider Janey DIAZ aware. Will speak with charge in his to inquire on anticipated timing for EEG, do not suspect that psychiatry consultation will occur this evening. Reevaluation(s) Reevaluation #1: 6:57 PM 01/17/2025 (Janey DIAZ): Patient care was assumed by this provider as patient remains in case management/overflow observation status. The patient is a 69-year-old male with history of anoxic brain injury with dementia presenting to the ED for worsening confusion. Patient was cleared medically and admitted to overflow/case management however patient's spouse is adamant she would prefer the patient be discharged home with outpatient follow up. The patient is followed by Dr. Hernandez from Neurology who performed a consultation in the overflow area and made recommendations for ammonia level and EEG. The patient's ammonia level has resulted in his normal, EEG is pending. Shortly after sign- out this provider was notified that the patient's blood pressure was low in the high 80s systolic. Patient has received all his regular medications, no additional medications given recently. Per sign-out the patient has a history of urinary retention however RN reports the patient is eating and drinking well, urinating regularly. Patient was evaluated in person by this provider, is alert and pleasantly confused but answering questions appropriately. A bedside ultrasound was performed revealing 250 mL of urine, no abdominal tenderness and patient states no discomfort at rest. The patient has chronic jerking movements which per this provider's opinion may have affected the automated blood pressure machine. The patient's blood pressure was repeated by this provider while providing reassurance and holding the patient's hand to reduce jerking motions, with those interventions patient's blood pressure was repeated at 114/78, blood pressure was repeated on the contralateral side at 110/78. Seeing as patient is alert and mentating at his baseline and blood pressure x2 has demonstrated resolution of previously documented hypotension without intervention, there is no indication for escalation of treatment to IV fluid hydration. The patient's case was discussed with administrative staff. Likely the patient will not be able to obtain EEG until Monday. Seeing as the patient's would prefer to take the patient home rather than have placement, we will contact the patient's and discussed the option of taking the patient home for the weekend and following up Monday for EEG outpatient. 7:45 PM 01/17/2025 (Janey DIAZ): This provider was able to make contact with the patient's spouse Phyllis. After an extensive discussion with Phyllis and an extensive chart review, the patient and spouse's care plan and goals of care were clarified. The care plan developed with case management and the patient's spouse was initially to take the patient home today, however during the day patient had increased agitation and was difficult to redirect. As a result case management recommended patient stay in overflow for marleny-psychiatric consultation tomorrow morning for medication reconciliation and adjustment as needed to ensure patient is safe to return home and be compliant with his 's care. Shortly thereafter Dr. Hernandez's neurology consultation was noted to recommend EEG and ammonia level. At that time ammonia level was added and patient case was discussed with hospitalist to facilitate admission for EEG however after the consultation with the hospitalist team, patient was recommended for outpatient EEG and an EEG was ordered. The patient's spouse advises she was never made aware of the recommendations of Dr. Hernandez's consultation or need for EEG. The patient's spouse advises the patient has had multiple EEGs performed outpatient with Dr. Hernandez's office and she feels comfortable scheduling the EEG next week as an outpatient. The patient's spouse's primary concern is adjusting the patient's medications for compliance with her care at home. The patient states she thought Dr. Hernandez would be the appropriate provider to make those recommendations/changes. This provider informed the patient's spouse that these types of changes were best made by a psychiatry consultation which is currently ordered for tomorrow morning. As a result the patient's current plan of care is as follows: 1. Patient will be held overnight in ED overflow for geriatric psychiatric consultation tomorrow to optimize medications. 2. Following medication optimization and psychiatric consultation patient will likely be discharged home to his spouse's care. 3. The patient's spouse will contact the patient's PCP to discuss possibility of adding prn Zyprexa to their home medications to enhance compliance with care at home as the patient appears to respond well to Zyprexa while here in the ED. 01/18/2025 Patsy Dixon PA-C ----> Observation continues. Pending geriatric psychiatric consultation. Time: 08:19 Date: 01/19/25 Provider: Lynne Vieyra CNP Patient in physician observation for case management needs for narrative above. Psychiatry consultation occurred yesterday, recommendations for holding Seroquel and trazodone while continuing Lamictal olanzapine and sertraline. They have recommended care team evaluation when medically stable for assessment for Marleny psych adamant to re-evaluate the medication regimen, and family to be encouraged to assist in avoiding cannabis usage. No acute events reported overnight.? No current issues or complaints. VS stable. Will continue to monitor. -- patient evaluated by care team, deemed inpatient Marleny psych bed search Time: 18:15 Date: 01/20/25 Provider: JOE Soto Patient in physician observation for case management needs. Patient has not been able to go to the EEG as patient was not able to sit still. I was told by the EEG specialist that we may need to premedicate however premedication prior to EEGs can alter results, they will discussed with Dr. Valiente tomorrow to see what his recommendations are. Patient still remains to be in an inpatient Marleny psych bed search. 01/21/25 08:59 ADAM Benton: Patient on observation pending inpatient marleny- psych admission. Patient was scheduled to have EEG outpatient, can have this done during inpatient psych admission. VS stable. 01/21/25 1602 ADAM Benton: Notified by RN that patient agitated, hypotensive. No effect with PRN zyprexa. [facility] educational psychologist also notified and ordered repeat labs. Per staff, patient has been eating and drinking very little, suspect dehydration. Will order IV fluids and reassess. IM Valium ordered by [facility]. Medications Administered Generic Name Dose Route Start Last Admin Trade Name Freq PRN Reason Stop Dose Admin Aspirin 81 mg 01/17/25 09:00 01/22/25 08:38 Aspirin 81 Mg Tab.Chew PO 81 mg DAILY HAIM Administration Atorvastatin Calcium 80 mg 01/16/25 21:00 01/21/25 20:22 Atorvastatin Calcium 80 Mg Tablet PO 80 mg BEDTIME HAIM Administration Calcium Polycarbophil 1 tab 01/17/25 09:00 01/22/25 08:37 Calcium Polycarbophil Tablet PO 1 tab DAILY HAIM Administration Clopidogrel Bisulfate 75 mg 01/17/25 09:00 01/22/25 08:38 Clopidogrel Bisulfate 75 Mg Tablet PO 75 mg DAILY HAIM Administration Cyanocobalamin 1,000 mcg 01/17/25 09:00 01/22/25 08:38 Cyanocobalamin (Vitamin B-12) 1,000 Mcg Tablet PO 1,000 mcg DAILY HAIM Administration Finasteride 5 mg 01/17/25 09:00 01/22/25 08:36 Finasteride 5 Mg Tablet PO 5 mg DAILY HAIM Administration Lamotrigine 100 mg/ 150 mg 01/18/25 21:15 01/22/25 08:37 Lamotrigine 50 mg PO 150 mg BID HAIM Administration Melatonin 9 mg 01/20/25 17:58 01/20/25 20:03 Melatonin 3 Mg Tablet PO 9 mg BEDTIME PRN Administration Sleep Metoprolol Succinate 25 mg 01/17/25 09:00 01/21/25 09:38 Metoprolol Succinate Er 25 Mg Tab.Er.24h PO 25 mg On Hold: 01/21/25 19:19 DAILY HAIM Administration Protocol Olanzapine 2.5 mg 01/20/25 17:50 01/21/25 13:59 Olanzapine 2.5 Mg Tablet PO 2.5 mg On Hold: 01/21/25 19:22 Q4H PRN Administration agitation Quetiapine Fumarate 150 mg 01/20/25 21:00 01/21/25 09:37 Quetiapine Fumarate 50 Mg Tablet PO 150 mg On Hold: 01/21/25 19:20 BID HAIM Administration Sertraline HCl 50 mg 01/16/25 21:00 01/21/25 20:22 Sertraline Hcl 50 Mg Tablet PO 50 mg BEDTIME HAIM Administration Thiamine HCl 100 mg 01/17/25 09:00 01/22/25 08:38 Thiamine Hcl 100 Mg Tablet PO 100 mg DAILY HAIM Administration Trazodone HCl 50 mg 01/20/25 17:50 01/20/25 20:03 Trazodone Hcl 50 Mg Tablet PO 50 mg BEDTIME PRN Administration sleep Discontinued Medications Generic Name Dose Route Start Last Admin Trade Name Lizzy PRN Reason Stop Dose Admin Diazepam 2.5 mg 01/21/25 15:37 01/21/25 15:46 Diazepam 10 Mg/2 Ml Cartridge IM 01/21/25 15:38 2.5 mg STAT STA Administration Sodium Chloride 1,000 mls @ 999 mls/hr 01/21/25 16:15 01/21/25 17:38 Ns IV 01/21/25 17:15 Infused .Q1H1M HAIM Infusion Lamotrigine 150 mg 01/16/25 21:00 01/18/25 22:35 Lamotrigine 25 Mg Tablet PO Not Given BID HAIM Melatonin 9 mg 01/16/25 21:00 01/19/25 21:20 Melatonin 3 Mg Tablet PO 9 mg BEDTIME HAIM Administration Olanzapine 5 mg 01/16/25 09:48 01/16/25 09:52 Olanzapine 10 Mg Vial IM 01/16/25 09:49 5 mg ONCE ONE Administration Olanzapine 2.5 mg 01/16/25 15:06 01/20/25 06:37 Olanzapine 2.5 Mg Tablet PO 2.5 mg TID PRN Administration agitation Olanzapine 10 mg 01/21/25 14:42 01/21/25 15:44 Olanzapine 10 Mg Vial IM 01/21/25 14:43 Not Given STAT STA Quetiapine Fumarate 25 mg 01/17/25 09:00 01/18/25 08:20 Quetiapine Fumarate 25 Mg Tablet PO 25 mg DAILY HAIM Administration Quetiapine Fumarate 50 mg 01/16/25 21:00 01/17/25 21:14 Quetiapine Fumarate 50 Mg Tablet PO 50 mg BEDTIME HAIM Administration Quetiapine Fumarate 100 mg 01/16/25 21:00 01/18/25 08:20 Quetiapine Fumarate 100 Mg Tablet PO 100 mg BID HAIM Administration Trazodone HCl 50 mg 01/16/25 21:00 01/17/25 21:14 Trazodone Hcl 50 Mg Tablet PO 50 mg BEDTIME HAIM Administration Medical Decision Making Medical Decision Making [facility] Narrative: My interpretation of labs: No significant abnormality in patient's hematology and chemistry Urinalysis pending Patient's nurse was able to get in touch with the patient's . She is requesting a case management consult to possibly get extra help at home. Patient's does not want him to go to a facility. Patient is stable and has no complaints. Urinalysis is pending Physician observation started at to be a.m. Differential Diagnosis Differential Diagnoses: The differential diagnosis associated with the presentation includes (Dementia, UTI, chronic confusion state) Admission/Observation Consideration of admission/observation: Escalation of care including admission/observation considered (Patient is on physician observation waiting to be seen by case management.) Lab Data MDM Lab Attestation statement: I reviewed the patient's lab results. 01/21/25 15:38 01/22/25 09:00 Labs: Lab Results 01/16/25 01/16/25 01/17/25 Range/Units 02:38 09:37 17:41 WBC 8.8 (4.8-10.8) X10*3/uL RBC 3.73 L (4.60-5.80) X10*6/uL Hgb 11.5 L (14.0-18.0) g/dl Hct 34.3 L (42.0-52.0) % MCV 92.0 (80.0-98.0) fL MCH 30.8 (27.0-33.0) pg MCHC 33.5 (31.0-36.0) g/dl RDW 16.1 H (11.0-16.0) % Plt Count 378 (160-400) X10*3/uL MPV 9.3 L (9.4-12.4) fL Immature Gran % (Auto) 0.2 (0.0-0.4) % Neut % (Auto) 62.5 (45-73) % Lymph % (Auto) 26.6 (20-40) % [place] % (Auto) 8.1 (2-11) % Eos % (Auto) 2.3 (0-4) % Baso % (Auto) 0.3 (0-2) % Lymph # (Auto) 2.3 (1.2-4.9) X10*3/uL [place] # (Auto) 0.7 (0.1-1.2) X10*3/uL Eos # (Auto) 0.2 (0.0-0.4) X10*3/uL Baso # (Auto) 0.0 (0.0-0.2) X10*3/uL Abs Immat Gran (auto) 0.02 (0.00-0.03) X10*3/uL Absolute Neuts (auto) 5.5 (2.0-8.3) x10*3/uL Absolute Nucleated RBC 0.000 (0.0-0.012) X10*3/uL Nucleated RBC % (auto) 0.0 (0.0-0.2) /100WBC Sodium 143 (135-145) mmol/L Potassium 3.7 (3.3-5.1) mmol/L Chloride 105 (96-108) mmol/L Carbon Dioxide 28 (22-29) mmol/L Anion Gap 14 (12-20) BUN 11 (9-16) mg/dL Creatinine 1.25 (0.5-1.4) mg/dL Estim Creat Clear Calc 53.4 Estimated GFR 58 POC Glucose (60-115) mg/dL Random Glucose 91 (60-115) mg/dL Calcium 8.7 (8.4-10.2) mg/dL Total Bilirubin 0.4 (0.0-1.0) mg/dL AST 36 (5-37) U/L ALT 22 (0-40) U/L Alkaline Phosphatase 121 H (39-117) U/L Ammonia 32 (13-55) umol/L Total Protein 6.8 (6.5-8.0) g/dL Albumin 4.4 (3.5-5.0) g/dL Urine Color Yellow Urine Appearance Clear Urine pH 6.5 (5.0-9.0) Ur Specific Counselor 1.025 (1.005-1.025) Urine Protein Trace (Neg-Trace) mg/dL Urine Glucose (UA) Negative (Negative) mg/dL Urine Ketones Trace (Negative) mg/dL Urine Blood Negative (Negative) Urine Nitrite Negative (Negative) Ur Leukocyte Esterase Moderate (2+) H (Negative) Urine RBC >20 H (0-2) /HPF Urine WBC 0-5 (0-5) /HPF Ur Squamous Epith Cells 0-2 (0-2) /HPF Urine Bacteria None Seen (None Seen) Hyaline Casts 0-2 (0-2) /LPF Urine Yeast Present Salicylates < 5.0 L (15-30) mg/dL Urine Opiates Screen Not Detected (Not Detect) Ur Buprenorphine Scrn Not Detected (Not Detect) ng/mL Ur Oxycodone Screen Not Detected (Not Detect) ng/mL Urine Methadone Screen Not Detected (Not Detect) ng/mL Urine Fentanyl Screen Not Detected (Not Detect) Acetaminophen < 3 (<30) mcg/mL Ur Barbiturates Screen Not Detected (Not Detect) Ur Phencyclidine Scrn Not Detected (Not Detect) Ur Amphetamines Screen Not Detected (Not Detect) U Benzodiazepines Scrn POSITIVE H (Not Detect) Urine Cocaine Screen Not Detected (Not Detect) U Marijuana (THC) Screen POSITIVE H (Not Detect) Ethyl Alcohol < 10 mg/dL 01/21/25 01/21/25 Range/Units 14:59 15:38 WBC 9.6 (4.8-10.8) X10*3/uL RBC 4.25 L (4.60-5.80) X10*6/uL Hgb 13.4 L (14.0-18.0) g/dl Hct 38.9 L (42.0-52.0) % MCV 91.5 (80.0-98.0) fL MCH 31.5 (27.0-33.0) pg MCHC 34.4 (31.0-36.0) g/dl RDW 16.4 H (11.0-16.0) % Plt Count 462 H (160-400) X10*3/uL MPV 9.6 (9.4-12.4) fL Immature Gran % (Auto) 0.2 (0.0-0.4) % Neut % (Auto) 50.8 (45-73) % Lymph % (Auto) 36.9 (20-40) % [place] % (Auto) 10.0 (2-11) % Eos % (Auto) 1.6 (0-4) % Baso % (Auto) 0.5 (0-2) % Lymph # (Auto) 3.5 (1.2-4.9) X10*3/uL [place] # (Auto) 1.0 (0.1-1.2) X10*3/uL Eos # (Auto) 0.2 (0.0-0.4) X10*3/uL Baso # (Auto) 0.1 (0.0-0.2) X10*3/uL Abs Immat Gran (auto) 0.02 (0.00-0.03) X10*3/uL Absolute Neuts (auto) 4.9 (2.0-8.3) x10*3/uL Absolute Nucleated RBC 0.000 (0.0-0.012) X10*3/uL Nucleated RBC % (auto) 0.0 (0.0-0.2) /100WBC Sodium 145 (135-145) mmol/L Potassium 4.4 (3.3-5.1) mmol/L Chloride 108 (96-108) mmol/L Carbon Dioxide 21 L (22-29) mmol/L Anion Gap 20 (12-20) BUN 22 H (9-16) mg/dL Creatinine 1.52 H (0.5-1.4) mg/dL Estim Creat Clear Calc 43.9 Estimated GFR 46 POC Glucose 88 (60-115) mg/dL Random Glucose 90 (60-115) mg/dL Calcium 9.9 D (8.4-10.2) mg/dL Total Bilirubin 0.6 (0.0-1.0) mg/dL AST 28 (5-37) U/L ALT 16 (0-40) U/L Alkaline Phosphatase 123 H (39-117) U/L Ammonia (13-55) umol/L Total Protein 7.3 (6.5-8.0) g/dL Albumin 4.7 (3.5-5.0) g/dL Urine Color Urine Appearance Urine pH (5.0-9.0) Ur Specific Counselor (1.005-1.025) Urine Protein (Neg-Trace) mg/dL Urine Glucose (UA) (Negative) mg/dL Urine Ketones (Negative) mg/dL Urine Blood (Negative) Urine Nitrite (Negative) Ur Leukocyte Esterase (Negative) Urine RBC (0-2) /HPF Urine WBC (0-5) /HPF Ur Squamous Epith Cells (0-2) /HPF Urine Bacteria (None Seen) Hyaline Casts (0-2) /LPF Urine Yeast Salicylates (15-30) mg/dL Urine Opiates Screen (Not Detect) Ur Buprenorphine Scrn (Not Detect) ng/mL Ur Oxycodone Screen (Not Detect) ng/mL Urine Methadone Screen (Not Detect) ng/mL Urine Fentanyl Screen (Not Detect) Acetaminophen (<30) mcg/mL Ur Barbiturates Screen (Not Detect) Ur Phencyclidine Scrn (Not Detect) Ur Amphetamines Screen (Not Detect) U Benzodiazepines Scrn (Not Detect) Urine Cocaine Screen (Not Detect) U Marijuana (THC) Screen (Not Detect) Ethyl Alcohol mg/dL Critical Care Time Critical Care Time Critical Care Time: Yes Total Critical Care Time: 35 Attestation: See critical care time Discharge Plan Discharge Clinical Impression: Chronic confusional state Patient Disposition: Admitted As Inpatient Interventions: ED Discharge Assessment Last Done: 01/20/25 14:34 Discharge Date/Time: 01/21/25 21:39
--- NOTE | 2025-01-16 09:12 | PC.NURSE ---
Resumed care of pt at 0700. Pt resting in bed quietly, a/ox1- self only. Respirations even and unlabored, no increased wob/sob noted, denies SOB/CP. Pt ambulated to bathroom with this RN and walker. Pt very unsteady gait, redirection needed. Pt unable to provide urine sample, placed back in bed by this RN. Chair alarm placed on pt d/t fall risk and attempts to get out of bed. Pt ate 100% of breakfast, all needs met at this time.
[2025-01-16 09:44] LABS: Appearance Urine Clear; Glucose Urine UA Negative (Negative); PH 6.5 (5.0-9.0); Specific Gravity - Urine 1.025 (1.005-1.025); UMIC TRIGGER UACC YES
[2025-01-16 09:52] LABS: UACC Culture Trigger YES
[2025-01-16] MEDS: OLANZapine 10 MG VIAL 5 MG IM (09:52)
--- NOTE | 2025-01-16 11:49 | PC.NURSE ---
Late Charting d/t pt care: Pt attempting to get oob on own, fall measures in place- chair alarm on, bed locked in lowest position. Pt unable to be redirected back into bed, requiring frequent orienting to environment. JOE Garner at bedside to assist with patient, pt continues to be a safety concern to self d/t attempts to get out of bed on own. 5mg IM Zyprexa given @0952 in Left Deltoid. Pt and vitals monitored x1 hour- no O2 desat, BP/HR remained stable. After 1 hour observation, pt transferred to ED Overflow Bed 2 by transport. Pt remained calm on transport. Report given to Lara RN- care transferred at this time.
--- NOTE | 2025-01-16 12:25 | PHA.MEDREC ---
Pharmacy Consult ? Medication Reconciliation Pharmacy has completed the medication reconciliation. Spoke with patients who listed off all medications. Patient is no longer on Tamsulosin. Patients gave the patient 1 dose of diazepam 2 mg ( previously prescribed at last visit) and the patient slept for 24h and has not given a dose since. Patient takes seroquel 125 mg daily and 150 mg bedtime.
[2025-01-16 14:03] LABS: Cannabinoid Screen Urine POSITIVE (Not Detect)
--- NOTE | 2025-01-16 15:47 | PM.NEUROCN ---
History of Present Illness Data of Consult Service Date: 01/16/25 Primary Care Provider: Unknown Physician HPI Reason for consult: change in mental status 69 years old man with history of hypertension coronary artery disease who suffered from STEMI that was treated with fibrinolysis but was associated with cardiac arrest, which resulted in anoxic brain injury in May of 2020. After that he was physically and cognitively disabled cared by his . He had fluctuating mental status and also symptoms of seizure disorder couple of EEGs done and office were abnormal. He was treated with lamotrigine for seizures and combination of trazodone, quetiapine, and sertraline for behavioral symptoms. His stated that last year was good and mostly he did well but more recently things started to change. He had couple of incidents when he got confused or had sudden change in mental status for no obvious reason. He was brought to hospital both times. One time he was knocking on people's door in a confused state. His came to my office reporting that he was in emergency room and if I could see him. Review of Systems Review of Systems: Significant confusion in recent days to weeks. [facility] Past Medical History Medical History Dementia Complex partial seizures Anxiety Seizure disorder Hypertension CAD (coronary artery disease) BPH loc w urin obs/LUTS Contusion of left chest wall Emphysema of lung Neurogenic bladder Prostate nodule Ataxia Anoxic brain injury Epilepsy Compulsive behavior disorder Cardiac arrest Surgical History Surgical History No pertinent past surgical history Social History Social History Household Members: Unknown / Unable to assess Housing: Unknown / Unable to assess Alcohol intake: never Comment: constant conpanion at bedside Patient Tobacco Use Status: Former Tobacco user Smoked in Last 30 Days: No e-Cigarette/Vaping Use: Never Used Use of substances other than those prescribed or required for medical reasons: Yes Substance Use Type: Marijuana Substance Use Frequency: Chronic Longstanding Advance Directives: Yes Advance Directives on File: Yes Advance Directives Date on File: 07/04/24 service: No Current occupational status: retired Cognitive needs: No Hearing needs: No Vision needs: No Meds Allergies Allergy/AdvReac Type Severity Reaction Status Date / Time lisinopril Allergy Mild Unknown Verified 01/16/25 01:45 codeine Allergy Unknown Verified 01/16/25 01:45 Active Medications: Current Medications Aspirin (Aspirin 81 Mg Tab.Chew) 81 mg PO DAILY [facility] Atorvastatin Calcium (Atorvastatin Calcium 80 Mg Tablet) 80 mg PO BEDTIME [facility] Calcium Polycarbophil (Calcium Polycarbophil Tablet) 1 tab PO DAILY [facility] Clopidogrel Bisulfate (Clopidogrel Bisulfate 75 Mg Tablet) 75 mg PO DAILY [facility] Cyanocobalamin (Cyanocobalamin (Vitamin B-12) 1,000 Mcg Tablet) 1,000 mcg PO DAILY [facility] Finasteride (Finasteride 5 Mg Tablet) 5 mg PO DAILY [facility] Lamotrigine (Lamotrigine 25 Mg Tablet) 150 mg PO BID [facility] Melatonin (Melatonin 3 Mg Tablet) 9 mg PO BEDTIME [facility] Metoprolol Succinate (Metoprolol Succinate Er 25 Mg Tab.Er.24h) 25 mg PO DAILY [facility]; Protocol Non-Formulary Medication (Melatonin) 10 mg PO DAILY PRN PRN Reason: Sleep Olanzapine (Olanzapine 2.5 Mg Tablet) 2.5 mg PO TID PRN PRN Reason: agitation Quetiapine Fumarate (Quetiapine Fumarate 25 Mg Tablet) 25 mg PO DAILY [facility] Quetiapine Fumarate (Quetiapine Fumarate 50 Mg Tablet) 50 mg PO BEDTIME [facility] Quetiapine Fumarate (Quetiapine Fumarate 100 Mg Tablet) 100 mg PO BID [facility] Sertraline HCl (Sertraline Hcl 50 Mg Tablet) 50 mg PO BEDTIME [facility] Thiamine HCl (Thiamine Hcl 100 Mg Tablet) 100 mg PO DAILY [facility] Trazodone HCl (Trazodone Hcl 50 Mg Tablet) 50 mg PO BEDTIME [facility] Home Medications ?Medication ?Instructions ?Recorded ?Confirmed ?Last Taken ?Type lamotrigine 150 mg tablet 150 mg PO BID 08/21/23 01/16/25 08/31/23 09:30 History sertraline 50 mg tablet 50 mg PO BEDTIME 08/21/23 01/16/25 08/31/23 09:30 History trazodone 50 mg tablet 50 mg PO BEDTIME 08/21/23 01/16/25 08/31/23 21:30 History aspirin 81 mg chewable tablet 1 tab PO DAILY 09/01/23 01/16/25 08/31/23 09:30 History atorvastatin 80 mg tablet 80 mg PO BEDTIME 09/01/23 01/16/25 08/31/23 21:30 History melatonin 10 mg tablet 10 mg PO BEDTIME 06/27/24 01/16/25 Unknown History quetiapine 25 mg tablet 25 mg PO DAILY 08/19/24 01/16/25 Unknown History thiamine HCl (vitamin B1) 100 mg 100 mg PO DAILY 08/19/24 01/16/25 Unknown History tablet quetiapine 100 mg tablet 100 mg PO BID 11/07/24 01/16/25 Unknown History calcium polycarbophil 625 mg 625 mg PO DAILY 01/16/25 01/16/25 Unknown History tablet (Fiber (calcium polycarbophil)) cyanocobalamin (vitamin B-12) 1,000 mcg PO DAILY 01/16/25 01/16/25 Unknown History 1,000 mcg tablet melatonin 10 mg tablet 10 mg PO DAILY PRN Sleep 01/16/25 01/16/25 Unknown History quetiapine 25 mg tablet 50 mg PO BEDTIME 01/16/25 01/16/25 Unknown History Physical Exam Vital Signs: Vital Signs: Last Vital Signs Temp 98.3 F 01/16/25 13:57 Pulse 64 01/16/25 13:57 Resp 18 01/16/25 13:57 BP 134/78 01/16/25 13:57 Pulse Ox 98 01/16/25 13:57 O2 Del Method Room Air 01/16/25 13:57 BMI result Body Mass Index 19.2 Neuro: Other: He was alert and awake made eye contact. He was having mild myoclonic jerking of arms or legs. There was no focal weakness of arm or leg. Deep tendon reflexes were on +. Speech was pressured. He was confused but following commands. Results Labs 01/16/25 02:38 01/16/25 02:38 Labs: Short CBC 01/16/25 Range/Units 02:38 WBC 8.8 (4.8-10.8) X10*3/uL Hgb 11.5 L (14.0-18.0) g/dl Hct 34.3 L (42.0-52.0) % Plt Count 378 (160-400) X10*3/uL BMP 01/16/25 02:38 Sodium 143 Potassium 3.7 Chloride 105 Carbon Dioxide 28 BUN 11 Creatinine 1.25 Calcium 8.7 Liver Function 01/16/25 Range/Units 02:38 Total Bilirubin 0.4 (0.0-1.0) mg/dL AST 36 (5-37) U/L ALT 22 (0-40) U/L Alkaline Phosphatase 121 H (39-117) U/L Albumin 4.4 (3.5-5.0) g/dL Urine 01/16/25 Range/Units 09:37 Urine Color Yellow Urine Appearance Clear Urine pH 6.5 (5.0-9.0) Ur Specific [place] 1.025 (1.005-1.025) Urine Protein Trace (Neg-Trace) mg/dL Urine Glucose (UA) Negative (Negative) mg/dL head CT revealed moderate generalized cerebral and cerebellar atrophy. Assessment and Plan (1) Encephalopathy: Qualifiers: Encephalopathy type: unspecified encephalopathy Qualified Code(s): G93.40 - Encephalopathy, unspecified Status: Acute 69 years old man with multifactorial encephalopathy including anoxic encephalopathy from an episode of cardiac arrest in 2019, seizure disorder, and behavioral disorder treated with multiple medicines with possibility of iatrogenic encephalopathy or epileptic encephalopathy. He also has significant cerebral atrophy suggesting that degenerative dementia process was also contributing. There was no obvious metabolic abnormality on his metabolic profile. My recommendation is to check his ammonia level and have an EEG. I recommend holding some of his medications including trazodone, sertraline and quetiapine to see if he would clear up. He might require in admission to geriatric psychiatric side for adjustment of medicines. Procedures Date of Service Date of Service: 01/16/25
--- NOTE | 2025-01-16 16:19 | MHC.CM.ED ---
Received case management consult overnight. Patient came to the ER due to AMS. Patient has a history of anoxic brain injury. Was recently diagnosed with dementia from Dr Hernandez. Met with patient's , Elvira, in regards to discharge planning. Elvira is aware Dr Hernandez feels LTC is necessary. However, at this time Elvira does not have money to pay for SNF placement and [facility]. Information on what is needed for [facility] and [facility] financial counselors provided. Referral will be made to [facility] to reach out to Elvira to see if there are any services patient will qualify for. Elvira agreeable to referral to [facility] for SN and BH. Patient will stay overnight and then will transport patient home tomorrow morning. Patient, Elvira, Lara MONREAL and Patsy DIAZ aware. Continue to monitor for d/c needs.
--- NOTE | 2025-01-16 17:47 | PC.NURSE ---
pt has not urinated all day except for a very small amount (1o-20ml) for urine sample. Pt is unable to void on his own. He has been encouraged multiple times but was not able to go. Tried purewick, standing up, sitting down. Pt is difficult to direct and does not follow commands well. Bladder scan shoed 450+ml (documented). Verbal order to straight cath pt if he was not able to void in another hour. straight cath preformed without issue. 400ml clear medium yellow drained from bladder.
--- NOTE | 2025-01-16 19:23 | PC.NURSE ---
assumed care for pt at this time. pt awake and alert to self only in the bed. sitter is in place. pt in no notable distress at this time, pts needs met. plan of care ongoing
--- NOTE | 2025-01-17 04:52 | PC.NURSE ---
assumed care at 2300 pt is confused and playing with his wrist band inc. of urine x1 with x2 assist to commode but no result already urinated , back to bed very unsteady on feet and spastic. zyprexa 2.5 mg po given at 0255 for agitation took pill whole with water.
[2025-01-17 05:53] VITALS: BP 169/95; PULSE 82; RESP 16; TEMP 36.3; O2SAT 98
--- NOTE | 2025-01-17 07:07 | PC.NURSE ---
Addendum entered by Serina Herrera RN 01/17/25 09:34: Patient is a 69 years old man with multifactorial encephalopathy including anoxic encephalopathy from an episode of cardiac arrest in 2019, seizure disorder, and behavioral disorder treated with multiple medicines with possibility of iatrogenic encephalopathy or epileptic encephalopathy. He also has significant cerebral atrophy suggesting that degenerative dementia process was also contributing. There was no obvious metabolic abnormality on his metabolic profile. Recommend by psychiatry an EEG and holding some of his medications including trazodone, sertraline and quetiapine to see if he would clear up. He might require in admission to geriatric psychiatric side for adjustment of medicines. Patient alert and cooperative. Flat affect noted. Lungs with dependent crackles. Respirations even and non-labored. Abdomen flat, soft, non-tender with positive bowel sounds. Positive pedal pulses with no edema. Original Note: Medical History Dementia Complex partial seizures Anxiety Seizure disorder Hypertension CAD (coronary artery disease) BPH loc w urin obs/LUTS Contusion of left chest wall Emphysema of lung Neurogenic bladder Prostate nodule Ataxia Anoxic brain injury Epilepsy Compulsive behavior disorder Cardiac arrest
[2025-01-17] MEDS: Metoprolol Succinate ER 25 MG TAB.ER.24H PO (08:09)
[2025-01-17] MEDS: calcium polycarbophiL TABLET 1 TAB PO (09:12)
--- NOTE | 2025-01-17 09:26 | MHC.CM.PN ---
Addendum entered by Selam Dwyer 01/17/25 16:17: CM INFORMED PT WAS TRYING TO GET OUT OF BED AND IT TOOK 3 PEOPLE TO REDIRECT AND THAT PTS IS CONCERNED ABOUT CARING FOR HIM AT THIS TIME PER CM DISCUSSION WITH PTS , SHE BELIEVES THE NEUROLOGIST IS GOING TO MAKE MED CHANGES AND THAT THERE MAY BE A PSYCH EVAL CONCERNS PASSED ON TO PROVIDER Original Note: CM SPOKE TO PTS , TED, SHE REPORTS SHE WAS PLANNING TO GET THE PT THIS MORNING, BUT THEN IT WAS UNCLEAR IF PT WOULD BE DISCHARGED. SHE SAYS SHE THOUGH THE PTS NEUROLOGIST AT [facility] MAY MAKE MED CHANGES PER NEURO NOTE, IPLOC MAY BE INDICATED, HOWEVER PTS REQUESTS ANY MED CHANGES BE MADE BY PTS NEUROLOGIST SO THAT SHE CAN HAVE APPROPRIATE FOLLOW UP/REFILLS JESUS ALSO REQUESTED TO GET THE PT IN THE LATE AFTERNOON WHEN HER SON WOULD BE AVAILABLE TO ASSIST. CURRENT DCP: HOME WITH KYLE KHOURY AND A REFERRAL TO [facility] TO TRANSPORT
--- NOTE | 2025-01-17 12:01 | PC.NURSE ---
Patient incontinent of a large amount of urine. Incontinence care provided.
[2025-01-17 14:00] VITALS: BP 96/60; PULSE 59; RESP 16; TEMP 36.3; O2SAT 96
[2025-01-17 16:34] VITALS: BP 96/60; PULSE 59; O2SAT 96
[2025-01-17 17:55] LABS: Ammonia 32 umol/L (13-55)
[2025-01-17 18:16] VITALS: BP 87/61; PULSE 87; RESP 20; TEMP 36.7; O2SAT 97
--- NOTE | 2025-01-17 19:11 | PC.NURSE ---
Patient noted to have an increase in ? sz activity versus jerky movements with assoc hypotension. EEG recommended. Patient also stated he did not feel right Patient eating and drinking appropriately. JOE Cobblen over to evaluate and hypotension appears to have improved with sbp in the 110's. Patient did states he felt better at this time. Plan to attempt admission at this time.
[2025-01-17 19:25] VITALS: BP 105/76; PULSE 77; RESP 20; TEMP 37.7; O2SAT 98
[2025-01-17 19:35] VITALS: RESP 20; TEMP 36.5
--- NOTE | 2025-01-17 22:21 | PC.NURSE ---
Addendum entered by Lala Mckeon RN 01/17/25 23:56: Patient was incontinent of bowel and bladder. Brief was removed, incontinence care provided, and male PW placed with education provided PW better for skin than brief. Moments later, this pt was observed removing his male PW. Brief replaced. Original Note: Assumed care of this patient at 19:00. This patient continues in the ED overflow. Patient is A&Ox1 to self only; has hx of dementia. Covering provider Masood Atkins was at this pt's bedside during handoff report due to concerns raised by prior RN (see their notes for details). The patient continues with frequent jerking movements, felt to be chronic in nature per provider. The pt is awake and conversant during these movements with conjugate gaze towards play writer to response, follows basic commands without any signs of being post-ictal, however, seizure precautions were placed for patient safety out of caution. Vitals and bladder scan were obtained by the provider with BS showing less than 300ml. For full details please see provider note (Reevaluation #1).? Vitals obtained during play writer's care have been stable. Patient's breathing is even and unlabored without distress on room air. Pt was able to take medications whole, two at a time with water with staff assistance. No issues with this were noted. Aspiration precautions in place. Patient's brief was changed due to incontinence. No tenderness or pain noted to pelvic palpation. During this time, patient's skin was assessed and noted with multiple scattered abrasions and bruises appearing to be in various stages of healing (? related to jerking movements). Skin photos uploaded. Pt remains bedfast due to unsteady/jerking motions in bed. Assisted with q2hr turning and repositioning.? Per discussion with the above provider re: plan of care: this pt will remain in overflow overnight pending a sanjeev-psych evaluation tentatively tomorrow for medication reconciliation, while the pt's reportedly plans to arrange the EEG outpatient in the coming weeks. Please see provider reevaluation for full details.? Call ross is within reach and this pt was educated on use. Hourly purposeful rounding enacted. Bed alarm on and safety measures in place.
[2025-01-18 06:00] VITALS: BP 110/74; PULSE 76; RESP 18; TEMP 36.5; O2SAT 95
[2025-01-18 08:18] VITALS: BP 105/61; PULSE 61; RESP 18; TEMP 37.1; O2SAT 98
[2025-01-18 08:21] VITALS: BP 105/61; PULSE 61
[2025-01-18] MEDS: Metoprolol Succinate ER 25 MG TAB.ER.24H PO (08:21)
[2025-01-18] MEDS: calcium polycarbophiL TABLET 1 TAB PO (09:02)
--- NOTE | 2025-01-18 10:32 | PC.NURSE ---
Pt incontinent of urine, breif changed. Pt noted to have large dark purple/yellow bruise on right flank, addidional blue/yellow bruise noted to right shoulder and left flank. Pt repositioned in bed and call ross placed w/in reach
--- NOTE | 2025-01-18 12:00 | PM.PSYCN ---
History of Present Illness Date of Service: 01/18/25 Chief Complaint: AMS found knocking on neighbors doors by PD Reason for Consult: Medicine review, encephalopathy. Requesting physician: Lynne Vieyra Sources of Information: patient interviewed and chart reviewed HPI Narrative: 69 yo male, currently in ER Overflow, s/p consult for increasing confusion, encephalopathy. Pt was found knocking on neighbors doors and refusing to go home with his . Hx of cardiac arrest in 2019 with anoxic brain injury, dementia, anxiety, epilepsy, HTN, CAD, BPH, emphysema, neurogenic bladder. Current psychotropic regime includes Lamictal 150 mg bid for seizure/mood, Olanzapine 2.5 mg tid prn agitation, Seroquel 125 mg a.m. 150 mg hs, Sertraline 50 mg HS and Trazodone 50 mg HS Medical Evaluation Reviewed: Yes Review of Systems Review of Systems Yes Unobtainable due to mental status [facility] Medical History Dementia Complex partial seizures Anxiety Seizure disorder Hypertension CAD (coronary artery disease) BPH loc w urin obs/LUTS Contusion of left chest wall Emphysema of lung Neurogenic bladder Prostate nodule Ataxia Anoxic brain injury Epilepsy Compulsive behavior disorder Cardiac arrest Surgical History No pertinent past surgical history Diagnostics Vital Signs (24Hr): Vital Signs - 24 hr 01/17/25 14:00 01/17/25 16:34 01/17/25 18:16 Temperature 97.3 F 98.0 F Pulse Rate 59 59 87 Respiratory Rate 16 20 Blood Pressure 96/60 96/60 87/61 L Pulse Oximetry 96 96 97 Oxygen Delivery Method Room Air Room Air 01/17/25 19:25 01/17/25 19:35 01/18/25 06:00 Temperature 99.9 F 97.7 F 97.7 F Pulse Rate 77 76 Respiratory Rate 20 20 18 Blood Pressure 105/76 110/74 Pulse Oximetry 98 95 Oxygen Delivery Method Room Air Room Air 01/18/25 08:18 01/18/25 08:21 Temperature 98.8 F Pulse Rate 61 61 Respiratory Rate 18 Blood Pressure 105/61 105/61 Pulse Oximetry 98 Oxygen Delivery Method Room Air BMI result Body Mass Index 19.2 Labs 01/16/25 02:38 01/16/25 02:38 Labs: Laboratory Results - last 48 hr 01/16/25 01/17/25 09:37 17:41 Ammonia 32 Urine Opiates Screen Not Detected Ur Buprenorphine Scrn Not Detected Ur Oxycodone Screen Not Detected Urine Methadone Screen Not Detected Urine Fentanyl Screen Not Detected Ur Barbiturates Screen Not Detected Ur Phencyclidine Scrn Not Detected Ur Amphetamines Screen Not Detected U Benzodiazepines Scrn POSITIVE H Urine Cocaine Screen Not Detected U Marijuana (THC) Screen POSITIVE H Mental Status Exam Mental Status Exam Patient Appearance: Fatigued Level of Consciousness: Drowsy, Sedated and Lethargic Patient Behavior: Asleep Medications Medications Current Medications Aspirin (Aspirin 81 Mg Tab.Chew) 81 mg PO DAILY [facility] Last Admin: 01/18/25 08:21 Dose: 81 mg Atorvastatin Calcium (Atorvastatin Calcium 80 Mg Tablet) 80 mg PO BEDTIME [facility] Last Admin: 01/17/25 21:12 Dose: 80 mg Calcium Polycarbophil (Calcium Polycarbophil Tablet) 1 tab PO DAILY [facility] Last Admin: 01/18/25 09:02 Dose: 1 tab Clopidogrel Bisulfate (Clopidogrel Bisulfate 75 Mg Tablet) 75 mg PO DAILY [facility] Last Admin: 01/18/25 08:20 Dose: 75 mg Cyanocobalamin (Cyanocobalamin (Vitamin B-12) 1,000 Mcg Tablet) 1,000 mcg PO DAILY [facility] Last Admin: 01/18/25 08:20 Dose: 1,000 mcg Finasteride (Finasteride 5 Mg Tablet) 5 mg PO DAILY [facility] Last Admin: 01/18/25 08:21 Dose: 5 mg Lamotrigine (Lamotrigine 25 Mg Tablet) 150 mg PO BID [facility] Last Admin: 01/18/25 08:20 Dose: 150 mg Melatonin (Melatonin 3 Mg Tablet) 9 mg PO BEDTIME [facility] Last Admin: 01/17/25 21:14 Dose: 9 mg Metoprolol Succinate (Metoprolol Succinate Er 25 Mg Tab.Er.24h) 25 mg PO DAILY [facility]; Protocol Last Admin: 01/18/25 08:21 Dose: 25 mg Non-Formulary Medication (Melatonin) 10 mg PO DAILY PRN PRN Reason: Sleep Olanzapine (Olanzapine 2.5 Mg Tablet) 2.5 mg PO TID PRN PRN Reason: agitation Last Admin: 01/17/25 18:35 Dose: 2.5 mg Quetiapine Fumarate (Quetiapine Fumarate 25 Mg Tablet) 25 mg PO DAILY [facility] Last Admin: 01/18/25 08:20 Dose: 25 mg Quetiapine Fumarate (Quetiapine Fumarate 50 Mg Tablet) 50 mg PO BEDTIME [facility] Last Admin: 01/17/25 21:14 Dose: 50 mg Quetiapine Fumarate (Quetiapine Fumarate 100 Mg Tablet) 100 mg PO BID [facility] Last Admin: 01/18/25 08:20 Dose: 100 mg Sertraline HCl (Sertraline Hcl 50 Mg Tablet) 50 mg PO BEDTIME [facility] Last Admin: 01/17/25 21:12 Dose: 50 mg Thiamine HCl (Thiamine Hcl 100 Mg Tablet) 100 mg PO DAILY [facility] Last Admin: 01/18/25 08:21 Dose: 100 mg Trazodone HCl (Trazodone Hcl 50 Mg Tablet) 50 mg PO BEDTIME [facility] Last Admin: 01/17/25 21:14 Dose: 50 mg Allergies Allergies Allergy/AdvReac Type Severity Reaction Status Date / Time lisinopril Allergy Mild Unknown Verified 01/16/25 01:45 codeine Allergy Unknown Verified 01/16/25 01:45 Assessment & Plan Assessment & Plan (1) Chronic confusional state: Status: Acute Code(s): F44.89 - Other dissociative and conversion disorders (2) Encephalopathy: Qualifiers: Encephalopathy type: unspecified encephalopathy Qualified Code(s): G93.40 - Encephalopathy, unspecified Status: Acute Code(s): G93.40 - Encephalopathy, unspecified (3) Major neurocognitive disorder as late effect of traumatic brain injury with behavioral disturbance: Status: Acute Code(s): S06.9X9S - Unspecified intracranial injury with loss of consciousness of unspecified duration, sequela; F02.818 - Dementia in other diseases classified elsewhere, unspecified severity, with other behavioral disturbance Plan Hold Seroquel. Hold Trazodone Continue Lamictal, Olanzapine, Sertraline. Suggest CARE Team eval when medically stable for assessment for geriatric psych admit to re-evaluate medication regime due to the current mental status changes pt is presenting. Encourage family to assist pt in avoiding cannabis use given his current presentation EEG, which is ordered. CAT 01/08 is negative. Total time managing care of this patient today ____ minutes.
[2025-01-18 13:51] VITALS: BP 105/65; PULSE 70; RESP 18; TEMP 36.6; O2SAT 95
--- NOTE | 2025-01-18 17:21 | PC.NURSE ---
pt has had a pt observer at bedside throughout the day, mis afternoon, the pt was frequently starting to get up and was requiring promts not to, started to get a little agitated and tremulous, prn zyprexa given , pt currently sleeping, easily woken when dinner arrived but declined the meal
[2025-01-18 22:03] VITALS: BP 135/79; PULSE 63; RESP 20; TEMP 36.3; O2SAT 99
[2025-01-19 08:00] VITALS: BP 155/78; PULSE 74; RESP 17; TEMP 37; O2SAT 94
[2025-01-19] MEDS: Metoprolol Succinate ER 25 MG TAB.ER.24H PO (09:26)
[2025-01-19] MEDS: calcium polycarbophiL TABLET 1 TAB PO (09:26)
--- NOTE | 2025-01-19 11:34 | MHC.CM.ED ---
Patient remains in ER overflow. Per Courtney loss prevention specialist, recommend Care Team assessment for inpatient sanjeev psych admission when medically stable. EEG is ordered and pending. Continue to monitor for d/c needs.
[2025-01-19 14:00] VITALS: BP 184/77; PULSE 67; RESP 17; TEMP 36.8; O2SAT 97
[2025-01-19 19:18] VITALS: BP 162/87; PULSE 61; RESP 20; TEMP 36.8; O2SAT 96
--- NOTE | 2025-01-19 19:30 | PC.NURSE ---
this rn assumed care of pt, pt resting in hospital bed, sitter at bedside offers no complaints at this time vss
--- NOTE | 2025-01-19 21:27 | PC.NURSE ---
pt appears increasingly agitated at this time, picking in the roof of mouth and attempting to spit out pills. pt medicated per mar with crushed pills in applesauce and prn zyprexa given
[2025-01-20] VITALS (7 sets, daily range): BP systolic 00–157; BP diastolic 00–106; PULSE 0–91; RESP 0–18; TEMP -17.7–36.7; O2SAT 0–99
--- NOTE | 2025-01-20 | ECG_ITS ---
Test Reason : QT WAVE Blood Pressure : */* mmHG Vent. Rate : 64 BPM Atrial Rate : 64 BPM P-R Int : 172 ms QRS Dur : 144 ms QT Int : 474 ms P-R-T Axes : 50 255 75 degrees QTcB Int : 489 ms Normal sinus rhythm Right bundle branch block Abnormal ECG When compared with ECG of 20-Jan-2025 10:57, Premature ventricular complexes are no longer Present Questionable change in QRS axis T wave inversion no longer evident in Inferior leads QT has shortened Referred By: Aidee Lucio Electronically Signed By: Dawood Greer
--- NOTE | 2025-01-20 08:43 | MHC.CM.ED ---
Patient remains in ER overflow. Per Kong, Care Team note patient is appropriate for inpatient [facility]. Case Management deferring at this time.
[2025-01-20] MEDS: Metoprolol Succinate ER 25 MG TAB.ER.24H PO (08:46)
[2025-01-20] MEDS: calcium polycarbophiL TABLET 1 TAB PO (08:46)
--- NOTE | 2025-01-20 09:10 | MHC.EDTECH ---
Pt Voided 50ml in urinal
--- NOTE | 2025-01-20 10:54 | ECG_ITS ---
Test Reason : med clearance for admission Blood Pressure : */* mmHG Vent. Rate : 75 BPM Atrial Rate : 75 BPM P-R Int : 174 ms QRS Dur : 148 ms QT Int : 494 ms P-R-T Axes : 8 161 -13 degrees QTcB Int : 551 ms Sinus rhythm with occasional , and consecutive Premature ventricular complexes Right bundle branch block T wave abnormality, consider inferior ischemia Abnormal ECG When compared with ECG of 27-Jun-2024 16:33, Poor data quality in current ECG precludes serial comparison Referred By: Aidee Lucio Electronically Signed By: Dawood Greer
--- NOTE | 2025-01-20 17:46 | P.CNPS_ITS ---
History of Present Illness Date of Service: 01/20/2025 Chief Complaint: AMS found knocking on neighbors doors by PD Sources of Information: patient interviewed, chart reviewed and crisis/core team assessment reviewed HPI Narrative: Mr. Nam is a 69 year-old male with hx of dementia s/s to anoxic brain injury/vascular changes to his brain. He is known to this ticket writer through 3 prior assessments, last one last week on 01/08/25. At baseline, his memory/cognition is very impaired and he is not oriented to month, year nor situation. This has been the case for more than one year. This is not an acute change. Spoke with his , Phyllis who reports she is having harder time redirecting him when he attempts to get out of the home. He also has periods of paranoid delusions and declining medications. hopes to still care for him at their home. This ticket writer has talked with in the past informing of need for 24/7 supervision due to severe memory/cognitive changes. He was seen recently by his OP neurologist, Dr. Hernandez who referred him to [facility] for medication recommendations and adjustments. Dr. Hernandez had stopped his seroquel and trazodone. However, based on collateral information from his seroquel has been very helpful with management of impulsive, combative behaviors along with paranoid ideas. Pt seen in the ED. He is not oriented to situation. 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 He has not been aggressive nor combative. [facility] Medical History Dementia Complex partial seizures Anxiety Seizure disorder Hypertension CAD (coronary artery disease) BPH loc w urin obs/LUTS Contusion of left chest wall Emphysema of lung Neurogenic bladder Prostate nodule Ataxia Anoxic brain injury Epilepsy Compulsive behavior disorder Cardiac arrest Surgical History No pertinent past surgical history Diagnostics Vital Signs (24Hr): Vital Signs - 24 hr 01/19/25 19:18 01/20/25 01:28 01/20/25 05:26 Temperature 98.3 F 97.7 F 98.0 F Pulse Rate 61 69 91 Respiratory Rate 20 16 18 Blood Pressure 162/87 H 157/68 H 145/106 H Pulse Oximetry 96 97 99 Oxygen Delivery Method Room Air Room Air Room Air 01/20/25 08:46 01/20/25 14:00 01/20/25 14:34 Temperature 97.2 F 0 F L Pulse Rate 91 79 0 L Respiratory Rate 18 0 L Blood Pressure 145/106 H 136/89 00/00 L Pulse Oximetry 95 0 L Oxygen Delivery Method Room Air BMI result Body Mass Index 19.2 Labs 01/16/25 02:38 01/16/25 02:38 Mental Status Exam Mental Status Exam Narrative: Appearance:wearing hospital gown, fair hygiene, in NAD Behavior: cooperative Psychomotor: no agitation or retardation noted Speech: mostly clear, normal rate/rhythm/volume, spontaneous TP: mostly linear 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 insight/judgment: impaired x 2 memory/cog: alert, oriented only to self. severely impaired. Medications Medications Current Medications Aspirin (Aspirin 81 Mg Tab.Chew) 81 mg PO DAILY [facility] Last Admin: 01/20/25 08:46 Dose: 81 mg Atorvastatin Calcium (Atorvastatin Calcium 80 Mg Tablet) 80 mg PO BEDTIME [facility] Last Admin: 01/19/25 21:20 Dose: 80 mg Calcium Polycarbophil (Calcium Polycarbophil Tablet) 1 tab PO DAILY [facility] Last Admin: 01/20/25 08:46 Dose: 1 tab Clopidogrel Bisulfate (Clopidogrel Bisulfate 75 Mg Tablet) 75 mg PO DAILY [facility] Last Admin: 01/20/25 08:46 Dose: 75 mg Cyanocobalamin (Cyanocobalamin (Vitamin B-12) 1,000 Mcg Tablet) 1,000 mcg PO DAILY [facility] Last Admin: 01/20/25 08:47 Dose: 1,000 mcg Finasteride (Finasteride 5 Mg Tablet) 5 mg PO DAILY [facility] Last Admin: 01/20/25 08:45 Dose: 5 mg Lamotrigine 100 mg/ (Lamotrigine 50 mg) 150 mg PO BID [facility] Last Admin: 01/20/25 08:50 Dose: 150 mg Melatonin (Melatonin 3 Mg Tablet) 9 mg PO BEDTIME [facility] Last Admin: 01/19/25 21:20 Dose: 9 mg Metoprolol Succinate (Metoprolol Succinate Er 25 Mg Tab.Er.24h) 25 mg PO DAILY [facility]; Protocol Last Admin: 01/20/25 08:46 Dose: 25 mg Non-Formulary Medication (Melatonin) 10 mg PO DAILY PRN PRN Reason: Sleep Olanzapine (Olanzapine 2.5 Mg Tablet) 2.5 mg PO TID PRN PRN Reason: agitation Last Admin: 01/20/25 06:37 Dose: 2.5 mg Quetiapine Fumarate (Quetiapine Fumarate 25 Mg Tablet) 25 mg PO DAILY [facility] On Hold: 01/18/25 17:24 Last Admin: 01/18/25 08:20 Dose: 25 mg Quetiapine Fumarate (Quetiapine Fumarate 50 Mg Tablet) 50 mg PO BEDTIME [facility] On Hold: 01/18/25 17:24 Last Admin: 01/17/25 21:14 Dose: 50 mg Quetiapine Fumarate (Quetiapine Fumarate 100 Mg Tablet) 100 mg PO BID [facility] On Hold: 01/18/25 17:24 Last Admin: 01/18/25 08:20 Dose: 100 mg Sertraline HCl (Sertraline Hcl 50 Mg Tablet) 50 mg PO BEDTIME [facility] Last Admin: 01/19/25 21:20 Dose: 50 mg Thiamine HCl (Thiamine Hcl 100 Mg Tablet) 100 mg PO DAILY [facility] Last Admin: 01/20/25 08:50 Dose: 100 mg Trazodone HCl (Trazodone Hcl 50 Mg Tablet) 50 mg PO BEDTIME [facility] On Hold: 01/18/25 17:24 Last Admin: 01/17/25 21:14 Dose: 50 mg Allergies Allergies Allergy/AdvReac Type Severity Reaction Status Date / Time lisinopril Allergy Mild Unknown Verified 01/16/25 01:45 codeine Allergy Unknown Verified 01/16/25 01:45 Assessment & Plan Assessment & Plan (1) Major neurocognitive disorder as late effect of traumatic brain injury with behavioral disturbance: Status: Acute Code(s): S06.9X9S - Unspecified intracranial injury with loss of consciousness of unspecified duration, sequela; F02.818 - Dementia in other diseases classified elsewhere, unspecified severity, with other behavioral disturbance Plan Mr. Nam is a 69 year-old male with dementia s/s to anoxic brain injury along with vascular changes in the brain. He has presented as oriented only to self for more than a year. However, it appears that he is more combative when redirected by when he tries to get out of the house along with more delusional content (also suspect some degree of confabulation). Discussed with brief admission to [facility]. recommend to restart seroquel, adjust dose to 150mg po BID. recheck ekg, mointor QTc<500ms, K>4, Mg>2. PLAN 1. pending admission to [facility] to S[facility] 2. restart seroquel 150mg PO BID (do not think this medication caused increased confusion, in fact it has been helpful in the past for combative/impulsive behaviors and some antipsychotic effect). 3. repeat EKG, qtc less 500ms. Total time managing care of this patient today ____ minutes.
[2025-01-21] VITALS (7 sets, daily range): BP systolic 85–130; BP diastolic 61–92; PULSE 74–119; RESP 16–22; TEMP 35–37.3; O2SAT 95–100
[2025-01-21] MEDS: calcium polycarbophiL TABLET 1 TAB PO (09:37)
[2025-01-21] MEDS: Metoprolol Succinate ER 25 MG TAB.ER.24H PO (09:38)
--- NOTE | 2025-01-21 15:01 | PC.NURSE ---
Addendum entered by Erwin Cruz RN 01/21/25 15:49: ER MD and chief psychology at bedside assessing pt Original Note: pt became restless and confused, continued to get out of bed stating someone is driving with his jeep. pt was not able to be redirected and re-oriented. pt was very usnteady and tremulous, unable to stand and ambulate properly. pt was placing one foot on top of the other and attempting to ambulate like so. soon afterwards pt's RR and HR increased, RR 38, HR 119, diaphoretic and hypotensive. oral temp 95. was informed.
[2025-01-21 15:18] LABS: Glucose, Whole Blood 88 mg/dL (60-115)
[2025-01-21 15:41] LABS: MANUAL DIFF FLAG NO
[2025-01-21 15:44] LABS: Hematocrit 38.9 % (42.0-52.0); Hemoglobin 13.4 g/dl (14.0-18.0); Imm Gran Abs Auto 0.02 X10*3/uL (0.00-0.03); Imm Gran Pct Auto 0.2 % (0.0-0.4); Lymphocytes Absolute Auto 3.5 X10*3/uL (1.2-4.9); Mean Corpuscular HGB Conc 34.4 g/dl (31.0-36.0); Mean Corpuscular Hemoglobin 31.5 pg (27.0-33.0); Mean Corpuscular Volume 91.5 fL (80.0-98.0); NRBC Abs Auto 0.000 X10*3/uL (0.0-0.012); NRBC Pct Auto 0.0 /100WBC (0.0-0.2); Platelet Count 462 X10*3/uL (160-400); Red Blood Count 4.25 X10*6/uL (4.60-5.80); White Blood Count 9.6 X10*3/uL (4.8-10.8)
[2025-01-21] MEDS: diazePAM 10 MG/2 ML CARTRIDGE 2.5 MG IM (15:46)
[2025-01-21 15:58] LABS: Alanine Aminotransferase 16 U/L (0-40); Albumin Level 4.7 g/dL (3.5-5.0); Alkaline Phosphatase 123 U/L (39-117); Anion Gap 20 (12-20); Aspartate Amino Transferase 28 U/L (5-37); Blood Urea Nitrogen 22 mg/dL (9-16); Calcium 9.9 mg/dL (8.4-10.2); Carbon Dioxide 21 mmol/L (22-29); Chloride 108 mmol/L (96-108); Creatinine Clr Calc Pharmacy 43.9; Estimated Glomerular Filt Rate 46; Potassium 4.4 mmol/L (3.3-5.1); Sodium 145 mmol/L (135-145); Total Protein 7.3 g/dL (6.5-8.0)
--- NOTE | 2025-01-21 20:30 | MHC.EDTECH ---
pt found incontinent of urine in bed. Full bed bath given, new hospital gown and warm blankets given, pt now comfortable in bed, RN aware.
--- NOTE | 2025-01-21 21:31 | PC.NURSE ---
Report given to Pat on [facility]. Paperwork given to Pat. Pt assisted into wheelchair for transport to [facility] and escorted out of overflow.
--- NOTE | 2025-01-22 02:02 | PC.ADMIT ---
Patient arrived on unit at 2100, He was brought to ER for cognitive decline when he was found outside knocking on doors and refused to go back to his house with his . 911 was called. He continues to be confused but is pleasant and cooperative with care. He was oriented to unit and his room. when asked about his he said he didn't remember her. He was very unsteady on his feet and was placed on 1-1 overnight. weight was 151.4 height 6'1 Has a large old looking bruise on his right hip cause unknown.
[2025-01-22 08:32] VITALS: BP 138/91; PULSE 89; RESP 18; TEMP 37.1; O2SAT 97
[2025-01-22] MEDS: calcium polycarbophiL TABLET 1 TAB PO (08:37)
--- NOTE | 2025-01-22 08:46 | HO.PSYADMNOT ---
HPI Date of Service: 01/22/25 Chief Complaint: disorganization Sources of Information: patient interviewed, chart reviewed and crisis/core team assessment reviewed HPI Subjective Notes: Section 12B Healthcare Proxy: Yes Narrative: Mr. Nam is a 69 year-old male with hx of dementia s/s to anoxic brain injury/vascular changes to his brain. He is known to this insurance underwriter sales through 3 prior assessments, last one last week on 01/08/25. At baseline, his memory/cognition is very impaired and he is not oriented to month, year nor situation. This has been the case for more than one year. This is not an acute change. Spoke with his , Phyllis who reports she is having harder time redirecting him when he attempts to get out of the home. He also has periods of paranoid delusions and declining medications. hopes to still care for him at their home. This insurance underwriter sales has talked with in the past informing of need for 24/7 supervision due to severe memory/cognitive changes. On the unit, pt presents as pleasant. He is not oriented to situation, month, year nor place. He can briefly hold on the information that he is in the hospital. He is noted to be confabulating as to what is going on. He reports he needs to go to work and hoping we can let him go soon. He denies any physical concerns. No overt signs of psychosis. Past Psychiatric History: Inpt: none prior OP: psychotropic medications managed by neurologist Dr. Hernandez Past medication trials: seroquel Medical Evaluation Reviewed: Yes [facility] Medical History Dementia Complex partial seizures Anxiety Seizure disorder Hypertension CAD (coronary artery disease) BPH loc w urin obs/LUTS Contusion of left chest wall Emphysema of lung Neurogenic bladder Prostate nodule Ataxia Anoxic brain injury Epilepsy Compulsive behavior disorder Cardiac arrest Surgical History No pertinent past surgical history Family History: no prior psych hx Social History: Pt lives with . He has daughter. Substance History: None Trauma History: None reported Diagnostics Vital Signs (24Hr): Vital Signs - 24 hr 01/21/25 11:26 01/21/25 14:48 01/21/25 15:10 Temperature 97.4 F 95 F L Pulse Rate 93 119 H Respiratory Rate 17 Blood Pressure 123/83 85/73 L Pulse Oximetry 98 Oxygen Delivery Method Room Air 01/21/25 15:31 01/21/25 17:42 01/21/25 20:00 Temperature 98.2 F 97.4 F Pulse Rate 94 80 79 Respiratory Rate 22 H 16 Blood Pressure 94/61 107/64 117/71 Pulse Oximetry 100 95 98 Oxygen Delivery Method Room Air Room Air Room Air 01/22/25 08:32 Temperature 98.8 F Pulse Rate 89 Respiratory Rate 18 Blood Pressure 138/91 H Pulse Oximetry 97 Oxygen Delivery Method Room Air BMI result Body Mass Index 19.2 Labs 01/21/25 15:38 01/22/25 09:00 Labs: Laboratory Results - last 48 hr 01/21/25 01/21/25 14:59 15:38 WBC 9.6 RBC 4.25 L Hgb 13.4 L Hct 38.9 L MCV 91.5 MCH 31.5 MCHC 34.4 RDW 16.4 H Plt Count 462 H MPV 9.6 Immature Gran % (Auto) 0.2 Neut % (Auto) 50.8 Lymph % (Auto) 36.9 [place] % (Auto) 10.0 Eos % (Auto) 1.6 Baso % (Auto) 0.5 Lymph # (Auto) 3.5 [place] # (Auto) 1.0 Eos # (Auto) 0.2 Baso # (Auto) 0.1 Abs Immat Gran (auto) 0.02 Absolute Neuts (auto) 4.9 Absolute Nucleated RBC 0.000 Nucleated RBC % (auto) 0.0 Sodium 145 Potassium 4.4 Chloride 108 Carbon Dioxide 21 L Anion Gap 20 BUN 22 H Creatinine 1.52 H Estim Creat Clear Calc 43.9 Estimated GFR 46 POC Glucose 88 Random Glucose 90 Calcium 9.9 D Total Bilirubin 0.6 AST 28 ALT 16 Alkaline Phosphatase 123 H Total Protein 7.3 Albumin 4.7 Meds/Allergies Meds Home Medications ?Medication ?Instructions ?Recorded ?Confirmed ?Type lamotrigine 150 mg tablet 150 mg PO BID 08/21/23 01/16/25 History sertraline 50 mg tablet 50 mg PO BEDTIME 08/21/23 01/16/25 History trazodone 50 mg tablet 50 mg PO BEDTIME 08/21/23 01/16/25 History aspirin 81 mg chewable tablet 1 tab PO DAILY 09/01/23 01/16/25 History atorvastatin 80 mg tablet 80 mg PO BEDTIME 09/01/23 01/16/25 History melatonin 10 mg tablet 10 mg PO BEDTIME 06/27/24 01/16/25 History quetiapine 25 mg tablet 25 mg PO DAILY 08/19/24 01/16/25 History thiamine HCl (vitamin B1) 100 mg 100 mg PO DAILY 08/19/24 01/16/25 History tablet quetiapine 100 mg tablet 100 mg PO BID 11/07/24 01/16/25 History calcium polycarbophil 625 mg 625 mg PO DAILY 01/16/25 01/16/25 History tablet (Fiber (calcium polycarbophil)) cyanocobalamin (vitamin B-12) 1,000 mcg PO DAILY 01/16/25 01/16/25 History 1,000 mcg tablet melatonin 10 mg tablet 10 mg PO DAILY PRN Sleep 01/16/25 01/16/25 History quetiapine 25 mg tablet 50 mg PO BEDTIME 01/16/25 01/16/25 History Allergies Allergies Allergy/AdvReac Type Severity Reaction Status Date / Time lisinopril Allergy Mild Unknown Verified 01/16/25 01:45 codeine Allergy Unknown Verified 01/16/25 01:45 Mental Status Exam Mental Status Exam Narrative: Appearance:wearing hospital gown, fair hygiene, in NAD Behavior: cooperative Psychomotor: no agitation or retardation noted Speech: mostly clear, normal rate/rhythm/volume, spontaneous TP: mostly linear 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 insight/judgment: impaired x 2 memory/cog: alert, oriented only to self. severely impaired. Assessment & Plan Assessment & Plan (1) Major neurocognitive disorder due to another medical condition with behavioral disturbance: Status: Acute Code(s): F02.818 - Dementia in other diseases classified elsewhere, unspecified severity, with other behavioral disturbance Plan Mr. Nam is a 69 year-old male with dementia s/s to anoxic brain injury along with vascular changes in the brain. He has presented as oriented only to self for more than a year. However, it appears that he is more combative when redirected by when he tries to get out of the house along with more delusional content (also suspect some degree of confabulation). Discussed with brief admission to [facility]. recommend to restart seroquel, adjust dose to 150mg po BID. recheck ekg, mointor QTc<500ms, K>4, Mg>2. PLAN 1. Admit to S1, sect 12b (pending HCP to sign CV by HCP), 1:1 due to fall risk 2. continue seroquel 150mg po BID 3.OT assessment 4. aftercare planning Patient educated on: diagnosis (HCP- pt does not have capacity to understand medical condition) and medication risk/benefits Reason for continued inpatient stay Substantial Risk for: harm to others and inability to function Statement Statement: I have reviewed the history and physical and performed a pertinent examination on my patient. No changes have occurred unless specified. If the History and Physical was not performed prior to admission, the Hospitalist's service will be consulted for completing the admission physical. Time Spent With Patient Time: Total time managing care of this patient today ____ minutes.
[2025-01-22 10:03] LABS: Alanine Aminotransferase 17 U/L (0-40); Albumin Level 4.6 g/dL (3.5-5.0); Alkaline Phosphatase 114 U/L (39-117); Anion Gap 11 (12-20); Aspartate Amino Transferase 31 U/L (5-37); Blood Urea Nitrogen 21 mg/dL (9-16); Calcium 8.9 mg/dL (8.4-10.2); Carbon Dioxide 24 mmol/L (22-29); Chloride 108 mmol/L (96-108); Cholesterol 111 mg/dL (<200); Creatinine Clr Calc Pharmacy 65.5; Estimated Glomerular Filt Rate > 60; HDL Cholesterol 36 mg/dL (>40); Potassium 3.7 mmol/L (3.3-5.1); Sodium 139 mmol/L (135-145); Total Protein 7.3 g/dL (6.5-8.0); Triglycerides 67 mg/dL (<150)
[2025-01-22 10:13] LABS: Hemoglobin A1C 110.5245 umol/L; Total Hemoglobin (HGBA1C) 3293.0449 umol/L
[2025-01-22 10:16] LABS: Free T4 (Free Thyroxine) 1.05 ng/dL (0.71-1.85); Thyroid Stimulating Hormone 1.96 uIU/mL (0.32-4.0)
[2025-01-22 20:00] VITALS: BP 123/73; PULSE 82; RESP 18; TEMP 37.3; O2SAT 94
[2025-01-23 08:00] VITALS: BP 167/76; PULSE 70; RESP 18; TEMP 36.4; O2SAT 98
[2025-01-23] MEDS: calcium polycarbophiL TABLET 1 TAB PO (08:18)
--- NOTE | 2025-01-23 19:10 | P.PNPSI_ITS ---
Subjective Subjective Date of Service: 01/23/25 Reason For Visit: disorganization Subjective Notes: Section 12B Healthcare Proxy: Yes Interim History: Pt slept through the night. He continues to present as pleasant. Not oriented to situation, month.he has been ambulating more with one to one assistance. BP more volatile from HOTN to hypertension. will check ortho VS. No combative behaviors. Medication Compliance: Yes Review of Systems Review of Systems Significant confusion in recent days to weeks. Yes Unobtainable due to mental status Mental Status Exam Mental Status Exam Narrative: Appearance:wearing hospital gown, fair hygiene, in NAD Behavior: cooperative Psychomotor: no agitation or retardation noted Speech: mostly clear, normal rate/rhythm/volume, spontaneous TP: mostly linear 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 insight/judgment: impaired x 2 memory/cog: alert, oriented only to self. severely impaired. Diagnostics Vital Signs (24Hr): Vital Signs - 24 hr 01/22/25 20:00 01/23/25 08:00 Temperature 99.1 F 97.5 F Pulse Rate 82 70 Respiratory Rate 18 18 Blood Pressure 123/73 167/76 H Pulse Oximetry 94 98 Oxygen Delivery Method Room Air BMI result Body Mass Index 20.0 Labs 01/21/25 15:38 01/22/25 09:00 Labs: Laboratory Results - last 48 hr 01/22/25 09:00 Sodium 139 Potassium 3.7 Chloride 108 Carbon Dioxide 24 Anion Gap 11 L BUN 21 H Creatinine 1.02 Estim Creat Clear Calc 65.5 Estimated GFR > 60 Random Glucose 105 Estimat Average Glucose 103 Hemoglobin A1c % 5.2 Calcium 8.9 D Total Bilirubin 0.7 AST 31 ALT 17 Alkaline Phosphatase 114 Total Protein 7.3 Albumin 4.6 Triglycerides 67 Cholesterol 111 LDL Cholesterol, Calc 62 HDL Cholesterol 36 L TSH 1.96 Free T4 1.05 Medications Medications Current Medications Acetaminophen (Acetaminophen 325 Mg Tablet) 650 mg PO Q6H PRN PRN Reason: Headache/Pain, Scale 1-10 Al Hydroxide/Mg Hydroxide (Magnesium Hydrox/Alum Hydrox 30 Ml Oral.Susp) 30 ml PO Q6H PRN PRN Reason: Heartburn/Nausea Aspirin (Aspirin 81 Mg Tab.Chew) 81 mg PO DAILY [facility] Last Admin: 01/23/25 08:18 Dose: 81 mg Atorvastatin Calcium (Atorvastatin Calcium 80 Mg Tablet) 80 mg PO BEDTIME [facility] Last Admin: 01/22/25 20:48 Dose: 80 mg Calcium Polycarbophil (Calcium Polycarbophil Tablet) 1 tab PO DAILY [facility] Last Admin: 01/23/25 08:18 Dose: 1 tab Clopidogrel Bisulfate (Clopidogrel Bisulfate 75 Mg Tablet) 75 mg PO DAILY [facility] Last Admin: 01/23/25 08:18 Dose: 75 mg Cyanocobalamin (Cyanocobalamin (Vitamin B-12) 1,000 Mcg Tablet) 1,000 mcg PO DAILY [facility] Last Admin: 01/23/25 08:16 Dose: 1,000 mcg Finasteride (Finasteride 5 Mg Tablet) 5 mg PO DAILY [facility] Last Admin: 01/23/25 08:24 Dose: Not Given Hydroxyzine HCl (Hydroxyzine Hcl 25 Mg Tablet) 25 mg PO Q6H PRN PRN Reason: mild anxiety Lamotrigine 100 mg/ (Lamotrigine 50 mg) 150 mg PO BID [facility] Last Admin: 01/23/25 08:18 Dose: 150 mg Magnesium Hydroxide (Milk Of Magnesia 30 Ml Oral.Susp) 30 ml PO DAILY PRN PRN Reason: Constipation Melatonin (Melatonin 3 Mg Tablet) 9 mg PO BEDTIME PRN PRN Reason: Sleep Last Admin: 01/20/25 20:03 Dose: 9 mg Metoprolol Succinate (Metoprolol Succinate Er 25 Mg Tab.Er.24h) 25 mg PO DAILY [facility]; Protocol On Hold: 01/21/25 19:19 Last Admin: 01/21/25 09:38 Dose: 25 mg Nicotine (Nicotine 21 Mg Patch.Td24) 21 mg TRANSDERMA DAILY PRN PRN Reason: nicotine craving Nicotine Polacrilex (Nicotine Polacrilex 2 Mg Gum) 2 mg BUCCAL Q2H PRN PRN Reason: Nicotine Cravings Olanzapine (Olanzapine 2.5 Mg Tablet) 2.5 mg PO Q4H PRN On Hold: 01/21/25 19:22 PRN Reason: agitation Last Admin: 01/21/25 13:59 Dose: 2.5 mg Quetiapine Fumarate (Quetiapine Fumarate 50 Mg Tablet) 150 mg PO BID [facility] On Hold: 01/21/25 19:20 Last Admin: 01/21/25 09:37 Dose: 150 mg Sertraline HCl (Sertraline Hcl 50 Mg Tablet) 50 mg PO BEDTIME [facility] Last Admin: 01/22/25 20:48 Dose: 50 mg Thiamine HCl (Thiamine Hcl 100 Mg Tablet) 100 mg PO DAILY [facility] Last Admin: 01/23/25 08:24 Dose: Not Given Trazodone HCl (Trazodone Hcl 50 Mg Tablet) 50 mg PO BEDTIME PRN PRN Reason: sleep Last Admin: 01/20/25 20:03 Dose: 50 mg Allergies Allergies Allergy/AdvReac Type Severity Reaction Status Date / Time lisinopril Allergy Mild Unknown Verified 01/16/25 01:45 codeine Allergy Unknown Verified 01/16/25 01:45 Assessment & Plan Assessment & Plan (1) Major neurocognitive disorder due to another medical condition with behavioral disturbance: Status: Acute Code(s): F02.818 - Dementia in other diseases classified elsewhere, unspecified severity, with other behavioral disturbance Plan Mr. Nam is a 69 year-old male with dementia s/s to anoxic brain injury along with vascular changes in the brain. He has presented as oriented only to self for more than a year. However, it appears that he is more combative when redirected by when he tries to get out of the house along with more delusional content (also suspect some degree of confabulation). Discussed with brief admission to [facility] unit. recommend to restart seroquel, adjust dose to 150mg po BID. recheck ekg, monitor QTc<500ms, K>4, Mg>2. PLAN 1. continue tx. Reason for continued inpatient stay Substantial Risk for: inability to function Time Spent With Patient Time: Total time managing care of this patient today ____ minutes.
[2025-01-23 20:00] VITALS: BP 176/100; PULSE 81; TEMP 36.4; O2SAT 96
[2025-01-24 08:00] VITALS: BP 145/82; PULSE 99; RESP 18; TEMP 2.7; TEMP 36.8; O2SAT 99
[2025-01-24] MEDS: calcium polycarbophiL TABLET 1 TAB PO (08:17)
--- NOTE | 2025-01-24 15:47 | P.PNPSI_ITS ---
Subjective Subjective Date of Service: 01/24/25 Reason For Visit: disorganization Subjective Notes: Conditional Voluntary Healthcare Proxy: Yes Interim History: Pt slept through the night. Pt taking medications. He presents as very pleasant and smiling. He reports he came here this morning. He is not oriented to situation. He reports I like everyone here. He ambulates with assistance. He is taking medications as prescribed. No behavioral concerns. confabulation present but no overt delusional content. His ambulation is much improved without seroquel. At baseline he does have resting tremors, and ataxic gait but clearly without seroquel his mobility significantly improves. Review of Systems Review of Systems Significant confusion in recent days to weeks. Yes Unobtainable due to mental status Mental Status Exam Mental Status Exam Narrative: Appearance:wearing hospital gown, fair hygiene, in NAD Behavior: cooperative Psychomotor: no agitation or retardation noted Speech: mostly clear, normal rate/rhythm/volume, spontaneous TP: mostly linear 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 insight/judgment: impaired x 2 memory/cog: alert, oriented only to self. severely impaired. Diagnostics Vital Signs (24Hr): Vital Signs - 24 hr 01/23/25 20:00 01/24/25 08:00 Temperature 97.5 F 36.8 F L Pulse Rate 81 99 Respiratory Rate 18 Blood Pressure 176/100 H 145/82 H Pulse Oximetry 96 99 Oxygen Delivery Method Room Air Room Air BMI result Body Mass Index 20.0 Labs 01/21/25 15:38 01/22/25 09:00 Medications Medications Current Medications Acetaminophen (Acetaminophen 325 Mg Tablet) 650 mg PO Q6H PRN PRN Reason: Headache/Pain, Scale 1-10 Al Hydroxide/Mg Hydroxide (Magnesium Hydrox/Alum Hydrox 30 Ml Oral.Susp) 30 ml PO Q6H PRN PRN Reason: Heartburn/Nausea Aspirin (Aspirin 81 Mg Tab.Chew) 81 mg PO DAILY [facility] Last Admin: 01/24/25 08:16 Dose: 81 mg Atorvastatin Calcium (Atorvastatin Calcium 80 Mg Tablet) 80 mg PO BEDTIME [facility] Last Admin: 01/23/25 20:31 Dose: 80 mg Calcium Polycarbophil (Calcium Polycarbophil Tablet) 1 tab PO DAILY [facility] Last Admin: 01/24/25 08:17 Dose: 1 tab Clopidogrel Bisulfate (Clopidogrel Bisulfate 75 Mg Tablet) 75 mg PO DAILY [facility] Last Admin: 01/24/25 08:13 Dose: 75 mg Cyanocobalamin (Cyanocobalamin (Vitamin B-12) 1,000 Mcg Tablet) 1,000 mcg PO DAILY [facility] Last Admin: 01/24/25 08:16 Dose: 1,000 mcg Finasteride (Finasteride 5 Mg Tablet) 5 mg PO DAILY [facility] Last Admin: 01/24/25 08:16 Dose: 5 mg Hydroxyzine HCl (Hydroxyzine Hcl 25 Mg Tablet) 25 mg PO Q6H PRN PRN Reason: mild anxiety Lamotrigine 100 mg/ (Lamotrigine 50 mg) 150 mg PO BID [facility] Last Admin: 01/24/25 08:11 Dose: 150 mg Magnesium Hydroxide (Milk Of Magnesia 30 Ml Oral.Susp) 30 ml PO DAILY PRN PRN Reason: Constipation Melatonin (Melatonin 3 Mg Tablet) 9 mg PO BEDTIME PRN PRN Reason: Sleep Last Admin: 01/20/25 20:03 Dose: 9 mg Metoprolol Succinate (Metoprolol Succinate Er 25 Mg Tab.Er.24h) 25 mg PO DAILY [facility]; Protocol On Hold: 01/21/25 19:19 Last Admin: 01/21/25 09:38 Dose: 25 mg Nicotine (Nicotine 21 Mg Patch.Td24) 21 mg TRANSDERMA DAILY PRN PRN Reason: nicotine craving Nicotine Polacrilex (Nicotine Polacrilex 2 Mg Gum) 2 mg BUCCAL Q2H PRN PRN Reason: Nicotine Cravings Olanzapine (Olanzapine 2.5 Mg Tablet) 2.5 mg PO Q4H PRN On Hold: 01/21/25 19:22 PRN Reason: agitation Last Admin: 01/21/25 13:59 Dose: 2.5 mg Quetiapine Fumarate (Quetiapine Fumarate 50 Mg Tablet) 150 mg PO BID [facility] On Hold: 01/21/25 19:20 Last Admin: 01/21/25 09:37 Dose: 150 mg Sertraline HCl (Sertraline Hcl 50 Mg Tablet) 50 mg PO BEDTIME [facility] Last Admin: 01/23/25 20:31 Dose: 50 mg Thiamine HCl (Thiamine Hcl 100 Mg Tablet) 100 mg PO DAILY [facility] Last Admin: 01/24/25 08:16 Dose: 100 mg Trazodone HCl (Trazodone Hcl 50 Mg Tablet) 50 mg PO BEDTIME PRN PRN Reason: sleep Last Admin: 01/23/25 20:31 Dose: 50 mg Allergies Allergies Allergy/AdvReac Type Severity Reaction Status Date / Time lisinopril Allergy Mild Unknown Verified 01/16/25 01:45 codeine Allergy Unknown Verified 01/16/25 01:45 Assessment & Plan Assessment & Plan (1) Major neurocognitive disorder due to another medical condition with behavioral disturbance: Status: Acute Code(s): F02.818 - Dementia in other diseases classified elsewhere, unspecified severity, with other behavioral disturbance Plan Mr. Nam is a 69 year-old male with dementia s/s to anoxic brain injury along with vascular changes in the brain. He has presented as oriented only to self for more than a year. However, it appears that he is more combative when redirected by when he tries to get out of the house along with more delusional content (also suspect some degree of confabulation). Discussed with brief admission to [facility]. recommend to restart seroquel, adjust dose to 150mg po BID. recheck ekg, monitor QTc<500ms, K>4, Mg>2. PLAN 01/25- mobility significantly improves without seroquel. He does have at baseline significant parkinsonism but at least able to ambulate better (with assistance). will decrease seroquel 50mg po q6h prn for agitation. will continue to monitor parkinsonism and adjust medications. Reason for continued inpatient stay Substantial Risk for: inability to function Time Spent With Patient Time: Total time managing care of this patient today ____ minutes.
[2025-01-24 20:00] VITALS: BP 143/93; PULSE 76; RESP 18; TEMP 36.4; O2SAT 96
[2025-01-25 08:00] VITALS: BP 129/74; TEMP 36.8
[2025-01-25] MEDS: calcium polycarbophiL TABLET 1 TAB PO (11:12)
--- NOTE | 2025-01-25 16:35 | HO.PSYCHPN ---
Subjective Subjective Date of Service: 01/25/25 Reason For Visit: disorganization Interim History: Patient is reported to be grandiose. Believes he is president and is having a meeting with the nurses to tell them about raises they're going to be getting. He has not had agitated episodes. Adherent to medications. Review of Systems Review of Systems Significant confusion in recent days to weeks. Yes Unobtainable due to mental status Mental Status Exam Mental Status Exam Narrative: Appearance:wearing hospital gown, fair hygiene, in NAD Behavior: cooperative Psychomotor: no agitation or retardation noted Speech: mostly clear, normal rate/rhythm/volume, spontaneous TP: mostly linear 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 insight/judgment: impaired x 2 memory/cog: alert, oriented only to self. severely impaired. Patient Appearance: Fatigued Level of Consciousness: Drowsy, Sedated and Lethargic Patient Behavior: Asleep Diagnostics Vital Signs (24Hr): Vital Signs - 24 hr 01/24/25 20:00 01/25/25 08:00 Temperature 97.5 F 98.2 F Pulse Rate 76 Respiratory Rate 18 Blood Pressure 143/93 H 129/74 Pulse Oximetry 96 Oxygen Delivery Method Room Air BMI result Body Mass Index 20.0 Labs 01/21/25 15:38 01/22/25 09:00 Medications Medications Current Medications Acetaminophen (Acetaminophen 325 Mg Tablet) 650 mg PO Q6H PRN PRN Reason: Headache/Pain, Scale 1-10 Al Hydroxide/Mg Hydroxide (Magnesium Hydrox/Alum Hydrox 30 Ml Oral.Susp) 30 ml PO Q6H PRN PRN Reason: Heartburn/Nausea Aspirin (Aspirin 81 Mg Tab.Chew) 81 mg PO DAILY [facility] Last Admin: 01/25/25 11:14 Dose: 81 mg Atorvastatin Calcium (Atorvastatin Calcium 80 Mg Tablet) 80 mg PO BEDTIME [facility] Last Admin: 01/24/25 20:42 Dose: 80 mg Calcium Polycarbophil (Calcium Polycarbophil Tablet) 1 tab PO DAILY [facility] Last Admin: 01/25/25 11:12 Dose: 1 tab Clopidogrel Bisulfate (Clopidogrel Bisulfate 75 Mg Tablet) 75 mg PO DAILY [facility] Last Admin: 01/25/25 11:13 Dose: 75 mg Cyanocobalamin (Cyanocobalamin (Vitamin B-12) 1,000 Mcg Tablet) 1,000 mcg PO DAILY [facility] Last Admin: 01/25/25 11:13 Dose: 1,000 mcg Finasteride (Finasteride 5 Mg Tablet) 5 mg PO DAILY [facility] Last Admin: 01/25/25 11:12 Dose: 5 mg Hydroxyzine HCl (Hydroxyzine Hcl 25 Mg Tablet) 25 mg PO Q6H PRN PRN Reason: mild anxiety Lamotrigine 100 mg/ (Lamotrigine 50 mg) 150 mg PO BID [facility] Last Admin: 01/25/25 11:11 Dose: 150 mg Magnesium Hydroxide (Milk Of Magnesia 30 Ml Oral.Susp) 30 ml PO DAILY PRN PRN Reason: Constipation Melatonin (Melatonin 3 Mg Tablet) 9 mg PO BEDTIME PRN PRN Reason: Sleep Last Admin: 01/24/25 20:41 Dose: 9 mg Metoprolol Succinate (Metoprolol Succinate Er 25 Mg Tab.Er.24h) 25 mg PO DAILY [facility]; Protocol On Hold: 01/21/25 19:19 Last Admin: 01/21/25 09:38 Dose: 25 mg Nicotine (Nicotine 21 Mg Patch.Td24) 21 mg TRANSDERMA DAILY PRN PRN Reason: nicotine craving Nicotine Polacrilex (Nicotine Polacrilex 2 Mg Gum) 2 mg BUCCAL Q2H PRN PRN Reason: Nicotine Cravings Olanzapine (Olanzapine 2.5 Mg Tablet) 2.5 mg PO BID PRN On Hold: 01/21/25 19:22 PRN Reason: agitation Sertraline HCl (Sertraline Hcl 50 Mg Tablet) 50 mg PO DAILY [facility] Last Admin: 01/25/25 11:08 Dose: 50 mg Thiamine HCl (Thiamine Hcl 100 Mg Tablet) 100 mg PO DAILY [facility] Last Admin: 01/25/25 11:12 Dose: 100 mg Trazodone HCl (Trazodone Hcl 50 Mg Tablet) 50 mg PO BEDTIME PRN PRN Reason: sleep Trazodone HCl (Trazodone Hcl 50 Mg Tablet) 50 mg PO BEDTIME [facility] Allergies Allergies Allergy/AdvReac Type Severity Reaction Status Date / Time lisinopril Allergy Mild Unknown Verified 01/16/25 01:45 codeine Allergy Unknown Verified 01/16/25 01:45 Assessment & Plan Assessment & Plan (1) Major neurocognitive disorder due to another medical condition with behavioral disturbance: Status: Acute Code(s): F02.818 - Dementia in other diseases classified elsewhere, unspecified severity, with other behavioral disturbance Plan Mr. Nam is a 69 year-old male with dementia s/s to anoxic brain injury along with vascular changes in the brain. He has presented as oriented only to self for more than a year. However, it appears that he is more combative when redirected by when he tries to get out of the house along with more delusional content (also suspect some degree of confabulation). Discussed with brief admission to [facility]. recommend to restart seroquel, adjust dose to 150mg po BID. recheck ekg, monitor QTc<500ms, K>4, Mg>2. PLAN 01/25- mobility significantly improves without seroquel. He does have at baseline significant parkinsonism but at least able to ambulate better (with assistance). will decrease seroquel 50mg po q6h prn for agitation. will continue to monitor parkinsonism and adjust medications. 01/25: Continue current management and treatment plan. Reason for continued inpatient stay Substantial Risk for: inability to function and rapid decompensation Time Spent With Patient Time: Total time managing care of this patient today ____ minutes.
[2025-01-26 08:00] VITALS: BP 162/82; PULSE 97; RESP 18; TEMP 2.6; TEMP 36.7; O2SAT 95
[2025-01-26] MEDS: calcium polycarbophiL TABLET 1 TAB PO (08:41)
--- NOTE | 2025-01-26 16:08 | HO.PSYCHPN ---
Subjective Subjective Date of Service: 01/26/25 Reason For Visit: disorganization Interim History: Patient continues grandiose and says I own this place. Although the sitter says that he has been calmer today than yesterday. He has not had agitated episodes. Adherent to medications. Review of Systems Review of Systems Significant confusion in recent days to weeks. Yes Unobtainable due to mental status Mental Status Exam Mental Status Exam Narrative: Appearance:wearing hospital gown, fair hygiene, in NAD Behavior: cooperative Psychomotor: no agitation or retardation noted Speech: mostly clear, normal rate/rhythm/volume, spontaneous TP: mostly linear 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 insight/judgment: impaired x 2 memory/cog: alert, oriented only to self. severely impaired. Patient Appearance: Fatigued Level of Consciousness: Drowsy, Sedated and Lethargic Patient Behavior: Asleep Diagnostics Vital Signs (24Hr): Vital Signs - 24 hr 01/26/25 08:00 Temperature 36.7 F L Pulse Rate 97 Respiratory Rate 18 Blood Pressure 162/82 H Pulse Oximetry 95 Oxygen Delivery Method Room Air BMI result Body Mass Index 20.0 Labs 01/21/25 15:38 01/22/25 09:00 Medications Medications Current Medications Acetaminophen (Acetaminophen 325 Mg Tablet) 650 mg PO Q6H PRN PRN Reason: Headache/Pain, Scale 1-10 Last Admin: 01/25/25 20:08 Dose: 650 mg Al Hydroxide/Mg Hydroxide (Magnesium Hydrox/Alum Hydrox 30 Ml Oral.Susp) 30 ml PO Q6H PRN PRN Reason: Heartburn/Nausea Aspirin (Aspirin 81 Mg Tab.Chew) 81 mg PO DAILY [facility] Last Admin: 01/26/25 08:41 Dose: 81 mg Atorvastatin Calcium (Atorvastatin Calcium 80 Mg Tablet) 80 mg PO BEDTIME [facility] Last Admin: 01/25/25 20:09 Dose: 80 mg Calcium Polycarbophil (Calcium Polycarbophil Tablet) 1 tab PO DAILY [facility] Last Admin: 01/26/25 08:41 Dose: 1 tab Clopidogrel Bisulfate (Clopidogrel Bisulfate 75 Mg Tablet) 75 mg PO DAILY [facility] Last Admin: 01/26/25 08:41 Dose: 75 mg Cyanocobalamin (Cyanocobalamin (Vitamin B-12) 1,000 Mcg Tablet) 1,000 mcg PO DAILY [facility] Last Admin: 01/26/25 08:41 Dose: 1,000 mcg Finasteride (Finasteride 5 Mg Tablet) 5 mg PO DAILY [facility] Last Admin: 01/26/25 08:41 Dose: 5 mg Hydroxyzine HCl (Hydroxyzine Hcl 25 Mg Tablet) 25 mg PO Q6H PRN PRN Reason: mild anxiety Last Admin: 01/25/25 20:09 Dose: 25 mg Lamotrigine 100 mg/ (Lamotrigine 50 mg) 150 mg PO BID [facility] Last Admin: 01/26/25 08:40 Dose: 150 mg Magnesium Hydroxide (Milk Of Magnesia 30 Ml Oral.Susp) 30 ml PO DAILY PRN PRN Reason: Constipation Melatonin (Melatonin 3 Mg Tablet) 9 mg PO BEDTIME PRN PRN Reason: Sleep Last Admin: 01/25/25 20:07 Dose: 9 mg Metoprolol Succinate (Metoprolol Succinate Er 25 Mg Tab.Er.24h) 25 mg PO DAILY [facility]; Protocol On Hold: 01/21/25 19:19 Last Admin: 01/21/25 09:38 Dose: 25 mg Nicotine (Nicotine 21 Mg Patch.Td24) 21 mg TRANSDERMA DAILY PRN PRN Reason: nicotine craving Nicotine Polacrilex (Nicotine Polacrilex 2 Mg Gum) 2 mg BUCCAL Q2H PRN PRN Reason: Nicotine Cravings Olanzapine (Olanzapine 2.5 Mg Tablet) 2.5 mg PO BID PRN On Hold: 01/21/25 19:22 PRN Reason: agitation Sertraline HCl (Sertraline Hcl 50 Mg Tablet) 50 mg PO DAILY [facility] Last Admin: 01/26/25 08:41 Dose: 50 mg Thiamine HCl (Thiamine Hcl 100 Mg Tablet) 100 mg PO DAILY [facility] Last Admin: 01/26/25 08:41 Dose: 100 mg Trazodone HCl (Trazodone Hcl 50 Mg Tablet) 50 mg PO BEDTIME PRN PRN Reason: sleep Trazodone HCl (Trazodone Hcl 50 Mg Tablet) 50 mg PO BEDTIME [facility] Last Admin: 01/25/25 20:10 Dose: 50 mg Allergies Allergies Allergy/AdvReac Type Severity Reaction Status Date / Time lisinopril Allergy Mild Unknown Verified 07/17/25 01:45 codeine Allergy Unknown Verified 01/16/25 01:45 Assessment & Plan Assessment & Plan (1) Major neurocognitive disorder due to another medical condition with behavioral disturbance: Status: Acute Code(s): F02.818 - Dementia in other diseases classified elsewhere, unspecified severity, with other behavioral disturbance Plan Mr. Nam is a 69 year-old male with dementia s/s to anoxic brain injury along with vascular changes in the brain. He has presented as oriented only to self for more than a year. However, it appears that he is more combative when redirected by when he tries to get out of the house along with more delusional content (also suspect some degree of confabulation). Discussed with brief admission to [facility]. recommend to restart seroquel, adjust dose to 150mg po BID. recheck ekg, monitor QTc<500ms, K>4, Mg>2. PLAN 01/25- mobility significantly improves without seroquel. He does have at baseline significant parkinsonism but at least able to ambulate better (with assistance). will decrease seroquel 50mg po q6h prn for agitation. will continue to monitor parkinsonism and adjust medications. 01/25: Continue current management and treatment plan. 01/26: continue current management and treatment plan. Reason for continued inpatient stay Substantial Risk for: inability to function and rapid decompensation Time Spent With Patient Time: Total time managing care of this patient today ____ minutes.
[2025-01-26 20:00] VITALS: BP 143/88; PULSE 70; RESP 16; TEMP 36.7; O2SAT 97
[2025-01-27 08:22] VITALS: BP 113/65; PULSE 76; RESP 15; TEMP 36.8; O2SAT 96
[2025-01-27] MEDS: calcium polycarbophiL TABLET 1 TAB PO (08:24)
--- NOTE | 2025-01-27 08:32 | HO.PSYCHPN ---
Subjective Subjective Date of Service: 01/27/25 Reason For Visit: disorganization Subjective Notes: Conditional Voluntary Healthcare Proxy: Yes Interim History: Pt slept through the night. He reports he just came from [place]. He reports he is doing well. He met with . His gait has improved without scheduled seroquel, however, per OT not stable enough to be on his own. No aggression nor agitation. Review of Systems Review of Systems Significant confusion in recent days to weeks. Yes Unobtainable due to mental status Mental Status Exam Mental Status Exam Narrative: Appearance:wearing hospital gown, fair hygiene, in NAD Behavior: cooperative Psychomotor: no agitation or retardation noted Speech: mostly clear, normal rate/rhythm/volume, spontaneous TP: mostly linear 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 insight/judgment: impaired x 2 memory/cog: alert, oriented only to self. severely impaired. Diagnostics Vital Signs (24Hr): Vital Signs - 24 hr 01/26/25 20:00 01/27/25 08:22 Temperature 98.1 F 98.2 F Pulse Rate 70 76 Respiratory Rate 16 15 Blood Pressure 143/88 H 113/65 Pulse Oximetry 97 96 Oxygen Delivery Method Room Air Room Air BMI result Body Mass Index 20.0 Labs 01/21/25 15:38 01/22/25 09:00 Medications Medications Current Medications Acetaminophen (Acetaminophen 325 Mg Tablet) 650 mg PO Q6H PRN PRN Reason: Headache/Pain, Scale 1-10 Last Admin: 01/25/25 20:08 Dose: 650 mg Al Hydroxide/Mg Hydroxide (Magnesium Hydrox/Alum Hydrox 30 Ml Oral.Susp) 30 ml PO Q6H PRN PRN Reason: Heartburn/Nausea Aspirin (Aspirin 81 Mg Tab.Chew) 81 mg PO DAILY [facility] Last Admin: 01/27/25 08:24 Dose: 81 mg Atorvastatin Calcium (Atorvastatin Calcium 80 Mg Tablet) 80 mg PO BEDTIME [facility] Last Admin: 01/26/25 21:15 Dose: 80 mg Calcium Polycarbophil (Calcium Polycarbophil Tablet) 1 tab PO DAILY [facility] Last Admin: 01/27/25 08:24 Dose: 1 tab Clopidogrel Bisulfate (Clopidogrel Bisulfate 75 Mg Tablet) 75 mg PO DAILY [facility] Last Admin: 01/27/25 08:24 Dose: 75 mg Cyanocobalamin (Cyanocobalamin (Vitamin B-12) 1,000 Mcg Tablet) 1,000 mcg PO DAILY [facility] Last Admin: 01/27/25 08:24 Dose: 1,000 mcg Finasteride (Finasteride 5 Mg Tablet) 5 mg PO DAILY [facility] Last Admin: 01/27/25 08:23 Dose: 5 mg Hydroxyzine HCl (Hydroxyzine Hcl 25 Mg Tablet) 25 mg PO Q6H PRN PRN Reason: mild anxiety Last Admin: 01/25/25 20:09 Dose: 25 mg Lamotrigine 100 mg/ (Lamotrigine 50 mg) 150 mg PO BID [facility] Last Admin: 01/27/25 08:23 Dose: 150 mg Magnesium Hydroxide (Milk Of Magnesia 30 Ml Oral.Susp) 30 ml PO DAILY PRN PRN Reason: Constipation Melatonin (Melatonin 3 Mg Tablet) 9 mg PO BEDTIME PRN PRN Reason: Sleep Last Admin: 01/25/25 20:07 Dose: 9 mg Metoprolol Succinate (Metoprolol Succinate Er 25 Mg Tab.Er.24h) 25 mg PO DAILY [facility]; Protocol On Hold: 01/21/25 19:19 Last Admin: 01/21/25 09:38 Dose: 25 mg Nicotine (Nicotine 21 Mg Patch.Td24) 21 mg TRANSDERMA DAILY PRN PRN Reason: nicotine craving Nicotine Polacrilex (Nicotine Polacrilex 2 Mg Gum) 2 mg BUCCAL Q2H PRN PRN Reason: Nicotine Cravings Olanzapine (Olanzapine 2.5 Mg Tablet) 2.5 mg PO BID PRN On Hold: 01/21/25 19:22 PRN Reason: agitation Sertraline HCl (Sertraline Hcl 50 Mg Tablet) 50 mg PO DAILY [facility] Last Admin: 01/27/25 08:24 Dose: 50 mg Thiamine HCl (Thiamine Hcl 100 Mg Tablet) 100 mg PO DAILY [facility] Last Admin: 01/27/25 08:23 Dose: 100 mg Trazodone HCl (Trazodone Hcl 50 Mg Tablet) 50 mg PO BEDTIME PRN PRN Reason: sleep Trazodone HCl (Trazodone Hcl 50 Mg Tablet) 50 mg PO BEDTIME [facility] Last Admin: 01/26/25 21:15 Dose: 50 mg Allergies Allergies Allergy/AdvReac Type Severity Reaction Status Date / Time lisinopril Allergy Mild Unknown Verified 01/16/25 01:45 codeine Allergy Unknown Verified 01/16/25 01:45 Assessment & Plan Assessment & Plan (1) Major neurocognitive disorder due to another medical condition with behavioral disturbance: Status: Acute Code(s): F02.818 - Dementia in other diseases classified elsewhere, unspecified severity, with other behavioral disturbance Plan Mr. Nam is a 69 year-old male with dementia s/s to anoxic brain injury along with vascular changes in the brain. He has presented as oriented only to self for more than a year. However, it appears that he is more combative when redirected by when he tries to get out of the house along with more delusional content (also suspect some degree of confabulation). Discussed with brief admission to [facility]. recommend to restart seroquel, adjust dose to 150mg po BID. recheck ekg, monitor QTc<500ms, K>4, Mg>2. PLAN 01/25- mobility significantly improves without seroquel. He does have at baseline significant parkinsonism but at least able to ambulate better (with assistance). will decrease seroquel 50mg po q6h prn for agitation. will continue to monitor parkinsonism and adjust medications. 01/25: Continue current management and treatment plan. 01/26: continue current management and treatment plan. 01/27 will try adding low dose depakote for impulsive/explosive behaviors now that he is off olanzapine. Reason for continued inpatient stay Substantial Risk for: inability to function Time Spent With Patient Time: Total time managing care of this patient today ____ minutes.
[2025-01-27 19:59] VITALS: BP 115/58; PULSE 62; RESP 16; TEMP 36.9; O2SAT 97
[2025-01-27] MEDS: Divalproex Sodium Sprinkles 125 MG CAP.DR.SPR PO (20:01)
[2025-01-28 08:38] VITALS: BP 158/88; PULSE 66; RESP 18; TEMP 36.4; O2SAT 97
[2025-01-28] MEDS: calcium polycarbophiL TABLET 1 TAB PO (08:41)
[2025-01-28] MEDS: Divalproex Sodium Sprinkles 125 MG CAP.DR.SPR PO (08:41)
--- NOTE | 2025-01-28 16:50 | P.PNPSI_ITS ---
Subjective Subjective Date of Service: 01/28/25 Reason For Visit: disorganization Subjective Notes: Conditional Voluntary Healthcare Proxy: Yes Interim History: pt slept through the night. He presents more agitated today, he thinks someone is trying to hurt him and asking this board writer to call the police. He reports he has not seen his or daughter in more than 5 years (note visited him yesterday). He was more agitated attempting to climb over nurses station, needing redirection. not oriented to place, month nor year. he needed prn medication including valium and olanzapine. He then required IM medication. Medication Compliance: Yes Mental Status Exam Mental Status Exam Narrative: Appearance:wearing hospital gown, fair hygiene, in NAD Behavior: cooperative Psychomotor: no agitation or retardation noted Speech: mostly clear, normal rate/rhythm/volume, spontaneous TP: mostly linear 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 insight/judgment: impaired x 2 memory/cog: alert, oriented only to self. severely impaired. Diagnostics Vital Signs (24Hr): Vital Signs - 24 hr 01/27/25 19:59 01/28/25 08:38 Temperature 98.4 F 97.5 F Pulse Rate 62 66 Respiratory Rate 16 18 Blood Pressure 115/58 L 158/88 H Pulse Oximetry 97 97 Oxygen Delivery Method Room Air Room Air BMI result Body Mass Index 20.0 Labs 01/21/25 15:38 01/22/25 09:00 Medications Medications Current Medications Acetaminophen (Acetaminophen 325 Mg Tablet) 650 mg PO Q6H PRN PRN Reason: Headache/Pain, Scale 1-10 Last Admin: 01/25/25 20:08 Dose: 650 mg Al Hydroxide/Mg Hydroxide (Magnesium Hydrox/Alum Hydrox 30 Ml Oral.Susp) 30 ml PO Q6H PRN PRN Reason: Heartburn/Nausea Aspirin (Aspirin 81 Mg Tab.Chew) 81 mg PO DAILY [facility] Last Admin: 01/28/25 08:41 Dose: 81 mg Atorvastatin Calcium (Atorvastatin Calcium 80 Mg Tablet) 80 mg PO BEDTIME [facility] Last Admin: 01/27/25 20:01 Dose: 80 mg Calcium Polycarbophil (Calcium Polycarbophil Tablet) 1 tab PO DAILY [facility] Last Admin: 01/28/25 08:41 Dose: 1 tab Clopidogrel Bisulfate (Clopidogrel Bisulfate 75 Mg Tablet) 75 mg PO DAILY [facility] Last Admin: 01/28/25 08:40 Dose: 75 mg Cyanocobalamin (Cyanocobalamin (Vitamin B-12) 1,000 Mcg Tablet) 1,000 mcg PO DAILY [facility] Last Admin: 01/28/25 08:41 Dose: 1,000 mcg Divalproex Sodium (Divalproex Sodium Sprinkles 125 Mg Mehrdad.) 125 mg PO BID [facility] Last Admin: 01/28/25 08:41 Dose: 125 mg Finasteride (Finasteride 5 Mg Tablet) 5 mg PO DAILY [facility] Last Admin: 01/28/25 08:47 Dose: 5 mg Hydroxyzine HCl (Hydroxyzine Hcl 25 Mg Tablet) 25 mg PO Q6H PRN PRN Reason: mild anxiety Last Admin: 01/28/25 15:30 Dose: 25 mg Lamotrigine 100 mg/ (Lamotrigine 50 mg) 150 mg PO BID [facility] Last Admin: 01/28/25 08:46 Dose: 150 mg Magnesium Hydroxide (Milk Of Magnesia 30 Ml Oral.Susp) 30 ml PO DAILY PRN PRN Reason: Constipation Melatonin (Melatonin 3 Mg Tablet) 9 mg PO BEDTIME PRN PRN Reason: Sleep Last Admin: 01/25/25 20:07 Dose: 9 mg Metoprolol Succinate (Metoprolol Succinate Er 25 Mg Tab.Er.24h) 25 mg PO DAILY [facility]; Protocol On Hold: 01/21/25 19:19 Last Admin: 01/21/25 09:38 Dose: 25 mg Nicotine (Nicotine 21 Mg Patch.Td24) 21 mg TRANSDERMA DAILY PRN PRN Reason: nicotine craving Nicotine Polacrilex (Nicotine Polacrilex 2 Mg Gum) 2 mg BUCCAL Q2H PRN PRN Reason: Nicotine Cravings Olanzapine (Olanzapine 2.5 Mg Tablet) 2.5 mg PO BID PRN PRN Reason: agitation Last Admin: 01/28/25 15:30 Dose: 2.5 mg Olanzapine (Olanzapine 2.5 Mg Tablet) 2.5 mg PO BID [facility] Sertraline HCl (Sertraline Hcl 50 Mg Tablet) 50 mg PO DAILY [facility] Last Admin: 01/28/25 08:40 Dose: 50 mg Thiamine HCl (Thiamine Hcl 100 Mg Tablet) 100 mg PO DAILY [facility] Last Admin: 01/28/25 08:40 Dose: 100 mg Trazodone HCl (Trazodone Hcl 50 Mg Tablet) 50 mg PO BEDTIME PRN PRN Reason: sleep Trazodone HCl (Trazodone Hcl 50 Mg Tablet) 50 mg PO BEDTIME [facility] Last Admin: 01/27/25 20:01 Dose: 50 mg Allergies Allergies Allergy/AdvReac Type Severity Reaction Status Date / Time lisinopril Allergy Mild Unknown Verified 01/16/25 01:45 codeine Allergy Unknown Verified 01/16/25 01:45 Assessment & Plan Assessment & Plan (1) Major neurocognitive disorder due to another medical condition with behavioral disturbance: Status: Acute Code(s): F02.818 - Dementia in other diseases classified elsewhere, unspecified severity, with other behavioral disturbance Plan Mr. Nam is a 69 year-old male with dementia s/s to anoxic brain injury along with vascular changes in the brain. He has presented as oriented only to self for more than a year. However, it appears that he is more combative when redirected by when he tries to get out of the house along with more delusional content (also suspect some degree of confabulation). Discussed with brief admission to [facility] unit. recommend to restart seroquel, adjust dose to 150mg po BID. recheck ekg, monitor QTc<500ms, K>4, Mg>2. PLAN 01/25- mobility significantly improves without seroquel. He does have at baseline significant parkinsonism but at least able to ambulate better (with assistance). will decrease seroquel 50mg po q6h prn for agitation. will continue to monitor parkinsonism and adjust medications. 01/25: Continue current management and treatment plan. 01/26: continue current management and treatment plan. 01/27 will try adding low dose depakote for impulsive/explosive behaviors now that he is off seroquel. 01/28 schedule olanzapine 2.5mg po BID. Reason for continued inpatient stay Substantial Risk for: inability to function Time Spent With Patient Time: Total time managing care of this patient today ____ minutes.
[2025-01-28] MEDS: OLANZapine 10 MG VIAL 5 MG IM (16:56)
[2025-01-28] MEDS: diazePAM 10 MG/2 ML CARTRIDGE 2.5 MG IM (16:57)
--- NOTE | 2025-01-28 19:07 | HO.PSYEVENT ---
Documented by User: Aidee Lucio NP 01/28/25 19:11 Event Note Date of Service: 01/28/25 Psych Restraint Event Note: Pt increasingly more agitated due to paranoia, attempting to exit unit, pushing door. Needed physical hold from 16:45 to 16:46 to prevent pt from injuring himself and/or eloping unit. He is on a one to one. He received PRN medications after without any resistance nor complaint. No injuries were sustained. Time Spent With Patient Time: Total time managing care of this patient today _10___ minutes. Documented by User: Bandar Adorno MD 01/28/25 19:21 Event Note Date of Service: 01/28/25
--- NOTE | 2025-01-28 19:30 | PC.NURSE ---
He then became increasingly agitated, believing he is being held here and it is nursing home.? He tried several times to cole into the nurses station.? He was given PRN hydroxyzine and Olanzapine with no effect.? He was given a one time dose of PO Valium with no effect.?He He continued to try to enter the nurses station and also spontaneously ran to the exit doors, but was intercepted and briefly held back by his 1:1. at 16:45. Message left for /HCP Phyllis Martinez to call unit for update.
[2025-01-28 20:00] VITALS: BP 152/84; PULSE 78; RESP 18; TEMP 36.8; O2SAT 98
[2025-01-29 08:06] VITALS: BP 122/73; PULSE 79; RESP 18; TEMP 36.8; O2SAT 97
[2025-01-29] MEDS: Divalproex Sodium Sprinkles 125 MG CAP.DR.SPR PO (08:08)
[2025-01-29] MEDS: calcium polycarbophiL TABLET 1 TAB PO (08:08)
--- NOTE | 2025-01-29 19:16 | P.PNPSI_ITS ---
Subjective Subjective Date of Service: 01/29/25 Reason For Visit: disorganization Subjective Notes: Conditional Voluntary Healthcare Proxy: Yes Interim History: Pt slept about 4 hrs. He presents as calmer today. Less paranoid about someone trying to harm him. He is somewhat somnolent and after breakfast went to sleep for a little bit. He continues on one to one due to unsteady gait. taking medications as prescribed. VS stable. Review of Systems Review of Systems Significant confusion in recent days to weeks. Yes Unobtainable due to mental status Mental Status Exam Mental Status Exam Narrative: Appearance:wearing hospital gown, fair hygiene, in NAD Behavior: cooperative Psychomotor: no agitation or retardation noted Speech: mostly clear, normal rate/rhythm/volume, spontaneous TP: mostly linear 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 insight/judgment: impaired x 2 memory/cog: alert, oriented only to self. severely impaired. Diagnostics Vital Signs (24Hr): Vital Signs - 24 hr 01/28/25 20:00 01/29/25 08:06 Temperature 98.2 F 98.2 F Pulse Rate 78 79 Respiratory Rate 18 18 Blood Pressure 152/84 H 122/73 Pulse Oximetry 98 97 Oxygen Delivery Method Room Air Room Air BMI result Body Mass Index 20.0 Labs 01/21/25 15:38 01/22/25 09:00 Medications Medications Current Medications Acetaminophen (Acetaminophen 325 Mg Tablet) 650 mg PO Q6H PRN PRN Reason: Headache/Pain, Scale 1-10 Last Admin: 01/25/25 20:08 Dose: 650 mg Al Hydroxide/Mg Hydroxide (Magnesium Hydrox/Alum Hydrox 30 Ml Oral.Susp) 30 ml PO Q6H PRN PRN Reason: Heartburn/Nausea Aspirin (Aspirin 81 Mg Tab.Chew) 81 mg PO DAILY [facility] Last Admin: 01/29/25 08:08 Dose: 81 mg Atorvastatin Calcium (Atorvastatin Calcium 80 Mg Tablet) 80 mg PO BEDTIME [facility] Last Admin: 01/28/25 22:29 Dose: Not Given Calcium Polycarbophil (Calcium Polycarbophil Tablet) 1 tab PO DAILY [facility] Last Admin: 01/29/25 08:08 Dose: 1 tab Clopidogrel Bisulfate (Clopidogrel Bisulfate 75 Mg Tablet) 75 mg PO DAILY [facility] Last Admin: 01/29/25 08:08 Dose: 75 mg Cyanocobalamin (Cyanocobalamin (Vitamin B-12) 1,000 Mcg Tablet) 1,000 mcg PO DAILY [facility] Last Admin: 01/29/25 08:08 Dose: 1,000 mcg Finasteride (Finasteride 5 Mg Tablet) 5 mg PO DAILY [facility] Last Admin: 01/29/25 08:07 Dose: 5 mg Hydroxyzine HCl (Hydroxyzine Hcl 25 Mg Tablet) 25 mg PO Q6H PRN PRN Reason: mild anxiety Last Admin: 01/29/25 18:25 Dose: 25 mg Lamotrigine 100 mg/ (Lamotrigine 50 mg) 150 mg PO BID [facility] Last Admin: 01/29/25 08:07 Dose: 150 mg Magnesium Hydroxide (Milk Of Magnesia 30 Ml Oral.Susp) 30 ml PO DAILY PRN PRN Reason: Constipation Melatonin (Melatonin 3 Mg Tablet) 9 mg PO BEDTIME PRN PRN Reason: Sleep Last Admin: 01/25/25 20:07 Dose: 9 mg Metoprolol Succinate (Metoprolol Succinate Er 25 Mg Tab.Er.24h) 25 mg PO DAILY [facility]; Protocol On Hold: 01/21/25 19:19 Last Admin: 01/21/25 09:38 Dose: 25 mg Nicotine (Nicotine 21 Mg Patch.Td24) 21 mg TRANSDERMA DAILY PRN PRN Reason: nicotine craving Nicotine Polacrilex (Nicotine Polacrilex 2 Mg Gum) 2 mg BUCCAL Q2H PRN PRN Reason: Nicotine Cravings Olanzapine (Olanzapine 2.5 Mg Tablet) 2.5 mg PO BID PRN PRN Reason: agitation Last Admin: 01/29/25 18:27 Dose: 2.5 mg Olanzapine (Olanzapine 2.5 Mg Tablet) 2.5 mg PO BID [facility] Last Admin: 01/29/25 08:08 Dose: 2.5 mg Sertraline HCl (Sertraline Hcl 50 Mg Tablet) 50 mg PO DAILY [facility] Last Admin: 01/29/25 08:08 Dose: 50 mg Thiamine HCl (Thiamine Hcl 100 Mg Tablet) 100 mg PO DAILY [facility] Last Admin: 01/29/25 08:08 Dose: 100 mg Trazodone HCl (Trazodone Hcl 50 Mg Tablet) 50 mg PO BEDTIME PRN PRN Reason: sleep Trazodone HCl (Trazodone Hcl 50 Mg Tablet) 50 mg PO BEDTIME [facility] Last Admin: 01/28/25 22:30 Dose: Not Given Allergies Allergies Allergy/AdvReac Type Severity Reaction Status Date / Time lisinopril Allergy Mild Unknown Verified 01/16/25 01:45 codeine Allergy Unknown Verified 01/16/25 01:45 Assessment & Plan Assessment & Plan (1) Major neurocognitive disorder due to another medical condition with behavioral disturbance: Status: Acute Code(s): F02.818 - Dementia in other diseases classified elsewhere, unspecified severity, with other behavioral disturbance Plan Mr. Nam is a 69 year-old male with dementia s/s to anoxic brain injury along with vascular changes in the brain. He has presented as oriented only to self for more than a year. However, it appears that he is more combative when redirected by when he tries to get out of the house along with more delusional content (also suspect some degree of confabulation). Discussed with brief admission to [facility] unit. recommend to restart seroquel, adjust dose to 150mg po BID. recheck ekg, monitor QTc<500ms, K>4, Mg>2. PLAN 01/25- mobility significantly improves without seroquel. He does have at baseline significant parkinsonism but at least able to ambulate better (with assistance). will decrease seroquel 50mg po q6h prn for agitation. will continue to monitor parkinsonism and adjust medications. 01/25: Continue current management and treatment plan. 01/26: continue current management and treatment plan. 01/27 will try adding low dose depakote for impulsive/explosive behaviors now that he is off olanzapine. 01/28 scheduled olanzapine 2.5mg po BID. d/c depakote 01/29 continue tx. Reason for continued inpatient stay Substantial Risk for: inability to function Time Spent With Patient Time: Total time managing care of this patient today ____ minutes.
[2025-01-29 20:00] VITALS: BP 141/79; PULSE 70; RESP 16; TEMP 37.1; O2SAT 96
[2025-01-30 08:00] VITALS: BP 119/77; PULSE 70; RESP 16; TEMP 36.8; O2SAT 97
[2025-01-30 08:45] VITALS: BMI 19.5
[2025-01-30] MEDS: calcium polycarbophiL TABLET 1 TAB PO (10:59)
--- NOTE | 2025-01-30 12:00 | HO.PSYCHPN ---
Subjective Subjective Date of Service: 01/30/25 Reason For Visit: disorganization Subjective Notes: Conditional Voluntary Healthcare Proxy: Yes Interim History: Pt slept through the night. He presents as calmer. 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 He appears with bright affect. No behavioral concerns. gait is unsteady, especially if he tries to turn around, therefore, will continue 1 to 1. VS stable. Medication Compliance: Yes Review of Systems Review of Systems Significant confusion in recent days to weeks. Yes Unobtainable due to mental status Mental Status Exam Mental Status Exam Narrative: Appearance:wearing hospital gown, fair hygiene, in NAD Behavior: cooperative Psychomotor: no agitation or retardation noted Speech: mostly clear, normal rate/rhythm/volume, spontaneous TP: mostly linear 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 insight/judgment: impaired x 2 memory/cog: alert, oriented only to self. severely impaired. Diagnostics Vital Signs (24Hr): Vital Signs - 24 hr 01/29/25 20:00 01/30/25 08:00 Temperature 98.8 F 98.2 F Pulse Rate 70 70 Respiratory Rate 16 16 Blood Pressure 141/79 H 119/77 Pulse Oximetry 96 97 Oxygen Delivery Method Room Air Room Air BMI result Body Mass Index 19.5 Labs 01/21/25 15:38 01/22/25 09:00 Medications Medications Current Medications Acetaminophen (Acetaminophen 325 Mg Tablet) 650 mg PO Q6H PRN PRN Reason: Headache/Pain, Scale 1-10 Last Admin: 01/25/25 20:08 Dose: 650 mg Al Hydroxide/Mg Hydroxide (Magnesium Hydrox/Alum Hydrox 30 Ml Oral.Susp) 30 ml PO Q6H PRN PRN Reason: Heartburn/Nausea Aspirin (Aspirin 81 Mg Tab.Chew) 81 mg PO DAILY [facility] Last Admin: 01/30/25 11:00 Dose: 81 mg Atorvastatin Calcium (Atorvastatin Calcium 80 Mg Tablet) 80 mg PO BEDTIME [facility] Last Admin: 01/29/25 19:52 Dose: 80 mg Calcium Polycarbophil (Calcium Polycarbophil Tablet) 1 tab PO DAILY [facility] Last Admin: 01/30/25 10:59 Dose: 1 tab Clopidogrel Bisulfate (Clopidogrel Bisulfate 75 Mg Tablet) 75 mg PO DAILY [facility] Last Admin: 01/30/25 10:59 Dose: 75 mg Cyanocobalamin (Cyanocobalamin (Vitamin B-12) 1,000 Mcg Tablet) 1,000 mcg PO DAILY [facility] Last Admin: 01/30/25 10:59 Dose: 1,000 mcg Finasteride (Finasteride 5 Mg Tablet) 5 mg PO DAILY [facility] Last Admin: 01/30/25 11:00 Dose: 5 mg Hydroxyzine HCl (Hydroxyzine Hcl 25 Mg Tablet) 25 mg PO Q6H PRN PRN Reason: mild anxiety Last Admin: 01/29/25 18:25 Dose: 25 mg Lamotrigine 100 mg/ (Lamotrigine 50 mg) 150 mg PO BID [facility] Last Admin: 01/30/25 10:59 Dose: 150 mg Magnesium Hydroxide (Milk Of Magnesia 30 Ml Oral.Susp) 30 ml PO DAILY PRN PRN Reason: Constipation Melatonin (Melatonin 3 Mg Tablet) 9 mg PO BEDTIME PRN PRN Reason: Sleep Last Admin: 01/29/25 19:51 Dose: 9 mg Metoprolol Succinate (Metoprolol Succinate Er 25 Mg Tab.Er.24h) 25 mg PO DAILY [facility]; Protocol On Hold: 01/21/25 19:19 Last Admin: 01/21/25 09:38 Dose: 25 mg Nicotine (Nicotine 21 Mg Patch.Td24) 21 mg TRANSDERMA DAILY PRN PRN Reason: nicotine craving Nicotine Polacrilex (Nicotine Polacrilex 2 Mg Gum) 2 mg BUCCAL Q2H PRN PRN Reason: Nicotine Cravings Olanzapine (Olanzapine 2.5 Mg Tablet) 2.5 mg PO BID PRN PRN Reason: agitation Last Admin: 01/29/25 18:27 Dose: 2.5 mg Olanzapine (Olanzapine 2.5 Mg Tablet) 2.5 mg PO BID [facility] Last Admin: 01/30/25 11:00 Dose: 2.5 mg Sertraline HCl (Sertraline Hcl 50 Mg Tablet) 50 mg PO DAILY [facility] Last Admin: 01/30/25 11:00 Dose: 50 mg Thiamine HCl (Thiamine Hcl 100 Mg Tablet) 100 mg PO DAILY [facility] Last Admin: 01/30/25 11:00 Dose: 100 mg Trazodone HCl (Trazodone Hcl 50 Mg Tablet) 50 mg PO BEDTIME PRN PRN Reason: sleep Last Admin: 01/29/25 19:51 Dose: 50 mg Trazodone HCl (Trazodone Hcl 50 Mg Tablet) 50 mg PO BEDTIME [facility] Last Admin: 01/29/25 19:51 Dose: 50 mg Allergies Allergies Allergy/AdvReac Type Severity Reaction Status Date / Time lisinopril Allergy Mild Unknown Verified 01/16/25 01:45 codeine Allergy Unknown Verified 01/16/25 01:45 Assessment & Plan Assessment & Plan (1) Major neurocognitive disorder due to another medical condition with behavioral disturbance: Status: Acute Code(s): F02.818 - Dementia in other diseases classified elsewhere, unspecified severity, with other behavioral disturbance Plan Mr. Nam is a 69 year-old male with dementia s/s to anoxic brain injury along with vascular changes in the brain. He has presented as oriented only to self for more than a year. However, it appears that he is more combative when redirected by when he tries to get out of the house along with more delusional content (also suspect some degree of confabulation). Discussed with brief admission to [facility]. recommend to restart seroquel, adjust dose to 150mg po BID. recheck ekg, monitor QTc<500ms, K>4, Mg>2. PLAN 01/25- mobility significantly improves without seroquel. He does have at baseline significant parkinsonism but at least able to ambulate better (with assistance). will decrease seroquel 50mg po q6h prn for agitation. will continue to monitor parkinsonism and adjust medications. 01/25: Continue current management and treatment plan. 01/26: continue current management and treatment plan. 01/27 will try adding low dose depakote for impulsive/explosive behaviors now that he is off olanzapine. 01/28 scheduled olanzapine 2.5mg po BID. d/c depakote 01/29 continue tx. 01/30 continue tx. Reason for continued inpatient stay Substantial Risk for: inability to function Time Spent With Patient Time: Total time managing care of this patient today ____ minutes.
[2025-01-30 20:00] VITALS: BP 148/88; PULSE 63; RESP 14; TEMP 36.1; O2SAT 98
[2025-01-31 08:00] VITALS: BP 141/65; PULSE 86; RESP 16; TEMP 36.4; O2SAT 96
[2025-01-31] MEDS: calcium polycarbophiL TABLET 1 TAB PO (08:31)
--- NOTE | 2025-01-31 17:58 | PC.NURSE ---
medicated with prn Zyprxa and hydroxizine for increase of anxiety about going home.
--- NOTE | 2025-01-31 18:04 | HO.PSYCHPN ---
Subjective Subjective Date of Service: 01/31/25 Reason For Visit: disorganization Subjective Notes: Conditional Voluntary Healthcare Proxy: Yes Interim History: Pt slept through the night. He presents as calmer. He reports his is coming to pick him up. Today does tell he is in the hospital, but does not know why or how long. No aggression. No behavioral concerns. gait is unsteady, especially if he tries to turn around, therefore, will continue 1 to 1. VS stable. Review of Systems Review of Systems Significant confusion in recent days to weeks. Yes Unobtainable due to mental status Mental Status Exam Mental Status Exam Narrative: Appearance:wearing hospital gown, fair hygiene, in NAD Behavior: cooperative Psychomotor: no agitation or retardation noted Speech: mostly clear, normal rate/rhythm/volume, spontaneous TP: mostly linear 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 insight/judgment: impaired x 2 memory/cog: alert, oriented only to self. severely impaired. Diagnostics Vital Signs (24Hr): Vital Signs - 24 hr 01/30/25 20:00 01/31/25 08:00 Temperature 97.0 F 97.5 F Pulse Rate 63 86 Respiratory Rate 14 16 Blood Pressure 148/88 H 141/65 H Pulse Oximetry 98 96 Oxygen Delivery Method Room Air Room Air BMI result Body Mass Index 19.5 Labs 01/21/25 15:38 01/22/25 09:00 Medications Medications Current Medications Acetaminophen (Acetaminophen 325 Mg Tablet) 650 mg PO Q6H PRN PRN Reason: Headache/Pain, Scale 1-10 Last Admin: 01/25/25 20:08 Dose: 650 mg Al Hydroxide/Mg Hydroxide (Magnesium Hydrox/Alum Hydrox 30 Ml Oral.Susp) 30 ml PO Q6H PRN PRN Reason: Heartburn/Nausea Aspirin (Aspirin 81 Mg Tab.Chew) 81 mg PO DAILY COUNTS INCLUDE 234 BEDS AT THE [facility] Last Admin: 01/31/25 08:32 Dose: 81 mg Atorvastatin Calcium (Atorvastatin Calcium 80 Mg Tablet) 80 mg PO BEDTIME COUNTS INCLUDE 234 BEDS AT THE [facility] Last Admin: 01/30/25 21:52 Dose: 80 mg Calcium Polycarbophil (Calcium Polycarbophil Tablet) 1 tab PO DAILY COUNTS INCLUDE 234 BEDS AT THE [facility] Last Admin: 01/31/25 08:31 Dose: 1 tab Clopidogrel Bisulfate (Clopidogrel Bisulfate 75 Mg Tablet) 75 mg PO DAILY COUNTS INCLUDE 234 BEDS AT THE [facility] Last Admin: 01/31/25 08:32 Dose: 75 mg Cyanocobalamin (Cyanocobalamin (Vitamin B-12) 1,000 Mcg Tablet) 1,000 mcg PO DAILY COUNTS INCLUDE 234 BEDS AT THE [facility] Last Admin: 01/31/25 08:32 Dose: 1,000 mcg Finasteride (Finasteride 5 Mg Tablet) 5 mg PO DAILY COUNTS INCLUDE 234 BEDS AT THE [facility] Last Admin: 01/31/25 08:30 Dose: 5 mg Hydroxyzine HCl (Hydroxyzine Hcl 25 Mg Tablet) 25 mg PO Q6H PRN PRN Reason: mild anxiety Last Admin: 01/31/25 17:52 Dose: 25 mg Lamotrigine 100 mg/ (Lamotrigine 50 mg) 150 mg PO BID COUNTS INCLUDE 234 BEDS AT THE [facility] Last Admin: 01/31/25 08:30 Dose: 150 mg Magnesium Hydroxide (Milk Of Magnesia 30 Ml Oral.Susp) 30 ml PO DAILY PRN PRN Reason: Constipation Melatonin (Melatonin 3 Mg Tablet) 9 mg PO BEDTIME PRN PRN Reason: Sleep Last Admin: 01/29/25 19:51 Dose: 9 mg Metoprolol Succinate (Metoprolol Succinate Er 25 Mg Tab.Er.24h) 25 mg PO DAILY COUNTS INCLUDE 234 BEDS AT THE [facility]; Protocol On Hold: 01/21/25 19:19 Last Admin: 01/21/25 09:38 Dose: 25 mg Nicotine (Nicotine 21 Mg Patch.Td24) 21 mg TRANSDERMA DAILY PRN PRN Reason: nicotine craving Nicotine Polacrilex (Nicotine Polacrilex 2 Mg Gum) 2 mg BUCCAL Q2H PRN PRN Reason: Nicotine Cravings Olanzapine (Olanzapine 2.5 Mg Tablet) 2.5 mg PO BID PRN PRN Reason: agitation Last Admin: 01/29/25 18:27 Dose: 2.5 mg Olanzapine (Olanzapine 2.5 Mg Tablet) 2.5 mg PO BID COUNTS INCLUDE 234 BEDS AT THE [facility] Last Admin: 01/31/25 17:52 Dose: 2.5 mg Sertraline HCl (Sertraline Hcl 50 Mg Tablet) 50 mg PO DAILY COUNTS INCLUDE 234 BEDS AT THE [facility] Last Admin: 01/31/25 08:31 Dose: 50 mg Thiamine HCl (Thiamine Hcl 100 Mg Tablet) 100 mg PO DAILY COUNTS INCLUDE 234 BEDS AT THE [facility] Last Admin: 01/31/25 08:32 Dose: 100 mg Trazodone HCl (Trazodone Hcl 50 Mg Tablet) 50 mg PO BEDTIME PRN PRN Reason: sleep Last Admin: 01/29/25 19:51 Dose: 50 mg Trazodone HCl (Trazodone Hcl 50 Mg Tablet) 50 mg PO BEDTIME [facility] Last Admin: 01/30/25 21:51 Dose: 50 mg Allergies Allergies Allergy/AdvReac Type Severity Reaction Status Date / Time lisinopril Allergy Mild Unknown Verified 01/16/25 01:45 codeine Allergy Unknown Verified 01/16/25 01:45 Assessment & Plan Assessment & Plan (1) Major neurocognitive disorder due to another medical condition with behavioral disturbance: Status: Acute Code(s): F02.818 - Dementia in other diseases classified elsewhere, unspecified severity, with other behavioral disturbance Plan Mr. Nam is a 69 year-old male with dementia s/s to anoxic brain injury along with vascular changes in the brain. He has presented as oriented only to self for more than a year. However, it appears that he is more combative when redirected by when he tries to get out of the house along with more delusional content (also suspect some degree of confabulation). Discussed with brief admission to [facility]. recommend to restart seroquel, adjust dose to 150mg po BID. recheck ekg, monitor QTc<500ms, K>4, Mg>2. PLAN 01/25- mobility significantly improves without seroquel. He does have at baseline significant parkinsonism but at least able to ambulate better (with assistance). will decrease seroquel 50mg po q6h prn for agitation. will continue to monitor parkinsonism and adjust medications. 01/25: Continue current management and treatment plan. 01/26: continue current management and treatment plan. 01/27 will try adding low dose depakote for impulsive/explosive behaviors now that he is off olanzapine. 01/28 scheduled olanzapine 2.5mg po BID. d/c depakote 01/29 continue tx. 01/30 continue tx 01/31 continue tx. Reason for continued inpatient stay Substantial Risk for: inability to function Time Spent With Patient Time: Total time managing care of this patient today ____ minutes.
[2025-01-31 20:00] VITALS: BP 128/80; PULSE 80; RESP 16; TEMP 36.8; O2SAT 96
--- NOTE | 2025-02-01 08:42 | P.PNPSI_ITS ---
Subjective Subjective Date of Service: 02/01/25 Reason For Visit: disorganization Subjective Notes: Conditional Voluntary Healthcare Proxy: Yes Medical Problems Affecting Mental Status: Yes (hx anoxic brain injury- ) Interim History: 69 yo MWM with ongoing essential brain injury with intermittent confusion /disorganization and lability- not making much sense today with this provider but not aggressive- sitting in kitchen - Medication Compliance: Yes Side effects from medications: No Attending Groups: No Review of Systems Acute medical concerns: No Medical Review of Systems: unchanged Mental Status Exam Mental Status Exam Patient Appearance: Unkempt (just messy hair) Patient Orientation: Person, Place and Situation Level of Consciousness: Awake Patient Behavior: Distractible and Confused Mood Description: Labile Affect Description: Labile Patient Cognition Impaired: Yes Ability to Follow Directions: Poor Speech Pattern: Perseverating and Rambling Thought Process: Illogical and Confusion Thought Content: positive for Disorganized Judgement: Poor Diagnostics Vital Signs (24Hr): Vital Signs - 24 hr 01/31/25 20:00 Temperature 98.2 F Pulse Rate 80 Respiratory Rate 16 Blood Pressure 128/80 Pulse Oximetry 96 Oxygen Delivery Method Room Air BMI result Body Mass Index 19.5 Labs 01/21/25 15:38 01/22/25 09:00 Medications Medications Current Medications Acetaminophen (Acetaminophen 325 Mg Tablet) 650 mg PO Q6H PRN PRN Reason: Headache/Pain, Scale 1-10 Last Admin: 01/25/25 20:08 Dose: 650 mg Al Hydroxide/Mg Hydroxide (Magnesium Hydrox/Alum Hydrox 30 Ml Oral.Susp) 30 ml PO Q6H PRN PRN Reason: Heartburn/Nausea Aspirin (Aspirin 81 Mg Tab.Chew) 81 mg PO DAILY [facility] Last Admin: 01/31/25 08:32 Dose: 81 mg Atorvastatin Calcium (Atorvastatin Calcium 80 Mg Tablet) 80 mg PO BEDTIME [facility] Last Admin: 01/31/25 21:20 Dose: 80 mg Calcium Polycarbophil (Calcium Polycarbophil Tablet) 1 tab PO DAILY [facility] Last Admin: 01/31/25 08:31 Dose: 1 tab Clopidogrel Bisulfate (Clopidogrel Bisulfate 75 Mg Tablet) 75 mg PO DAILY [facility] Last Admin: 01/31/25 08:32 Dose: 75 mg Cyanocobalamin (Cyanocobalamin (Vitamin B-12) 1,000 Mcg Tablet) 1,000 mcg PO DAILY [facility] Last Admin: 01/31/25 08:32 Dose: 1,000 mcg Finasteride (Finasteride 5 Mg Tablet) 5 mg PO DAILY [facility] Last Admin: 01/31/25 08:30 Dose: 5 mg Hydroxyzine HCl (Hydroxyzine Hcl 25 Mg Tablet) 25 mg PO Q6H PRN PRN Reason: mild anxiety Last Admin: 02/01/25 00:02 Dose: 25 mg Lamotrigine 100 mg/ (Lamotrigine 50 mg) 150 mg PO BID [facility] Last Admin: 01/31/25 21:46 Dose: 150 mg Magnesium Hydroxide (Milk Of Magnesia 30 Ml Oral.Susp) 30 ml PO DAILY PRN PRN Reason: Constipation Melatonin (Melatonin 3 Mg Tablet) 9 mg PO BEDTIME PRN PRN Reason: Sleep Last Admin: 02/01/25 00:02 Dose: 9 mg Metoprolol Succinate (Metoprolol Succinate Er 25 Mg Tab.Er.24h) 25 mg PO DAILY [facility]; Protocol On Hold: 01/21/25 19:19 Last Admin: 01/21/25 09:38 Dose: 25 mg Nicotine (Nicotine 21 Mg Patch.Td24) 21 mg TRANSDERMA DAILY PRN PRN Reason: nicotine craving Nicotine Polacrilex (Nicotine Polacrilex 2 Mg Gum) 2 mg BUCCAL Q2H PRN PRN Reason: Nicotine Cravings Olanzapine (Olanzapine 2.5 Mg Tablet) 2.5 mg PO BID PRN PRN Reason: agitation Last Admin: 01/29/25 18:27 Dose: 2.5 mg Olanzapine (Olanzapine 2.5 Mg Tablet) 2.5 mg PO BID [facility] Last Admin: 01/31/25 17:52 Dose: 2.5 mg Sertraline HCl (Sertraline Hcl 50 Mg Tablet) 50 mg PO DAILY [facility] Last Admin: 01/31/25 08:31 Dose: 50 mg Thiamine HCl (Thiamine Hcl 100 Mg Tablet) 100 mg PO DAILY [facility] Last Admin: 01/31/25 08:32 Dose: 100 mg Trazodone HCl (Trazodone Hcl 50 Mg Tablet) 50 mg PO BEDTIME PRN PRN Reason: sleep Last Admin: 01/29/25 19:51 Dose: 50 mg Trazodone HCl (Trazodone Hcl 50 Mg Tablet) 50 mg PO BEDTIME [facility] Last Admin: 01/31/25 21:20 Dose: 50 mg Allergies Allergies Allergy/AdvReac Type Severity Reaction Status Date / Time lisinopril Allergy Mild Unknown Verified 01/16/25 01:45 codeine Allergy Unknown Verified 01/16/25 01:45 Assessment & Plan Assessment & Plan (1) Major neurocognitive disorder due to another medical condition with behavioral disturbance: Status: Acute Code(s): F02.818 - Dementia in other diseases classified elsewhere, unspecified severity, with other behavioral disturbance Plan Mr. Nam is a 69 year-old male with dementia s/s to anoxic brain injury along with vascular changes in the brain. He has presented as oriented only to self for more than a year. However, it appears that he is more combative when redirected by when he tries to get out of the house along with more delusional content (also suspect some degree of confabulation). Discussed with brief admission to [facility]. recommend to restart seroquel, adjust dose to 150mg po BID. recheck ekg, monitor QTc<500ms, K>4, Mg>2. PLAN 01/25- mobility significantly improves without seroquel. He does have at baseline significant parkinsonism but at least able to ambulate better (with assistance). will decrease seroquel 50mg po q6h prn for agitation. will continue to monitor parkinsonism and adjust medications. 01/25: Continue current management and treatment plan. 01/26: continue current management and treatment plan. 01/27 will try adding low dose depakote for impulsive/explosive behaviors now that he is off olanzapine. 01/28 scheduled olanzapine 2.5mg po BID. d/c depakote 01/29 continue tx. 02/01/25- less paranoid 0x1- CTP Reason for continued inpatient stay Substantial Risk for: inability to function and rapid decompensation Time Spent With Patient Time: Total time managing care of this patient today ____ minutes.
[2025-02-01 08:50] VITALS: BP 149/83; PULSE 65; RESP 18; TEMP 35.9; O2SAT 98
[2025-02-01] MEDS: calcium polycarbophiL TABLET 1 TAB PO (08:53)
[2025-02-01 20:00] VITALS: BP 107/66; PULSE 67; RESP 18; TEMP 36.8; O2SAT 100
[2025-02-02 08:40] VITALS: BP 138/75; PULSE 67; RESP 17; TEMP 36.6; O2SAT 98
[2025-02-02] MEDS: calcium polycarbophiL TABLET 1 TAB PO (09:01)
--- NOTE | 2025-02-02 12:23 | HO.PSYCHPN ---
Subjective Subjective Date of Service: 02/02/25 Reason For Visit: disorganization Subjective Notes: Conditional Voluntary Healthcare Proxy: Yes Medical Problems Affecting Mental Status: Yes (neurocog do) Interim History: 69 yo sitting on his bed struggling with 's number- wondering why she is not visiting him, reassured him she would be in- says she likes him for his money- told him that if she stuck with him so far probably not just that- Pt on close obs- -or 1:1 for safety/fall risk Medication Compliance: Yes Side effects from medications: No Attending Groups: Intermittent Review of Systems Acute medical concerns: No Medical Review of Systems: unchanged Mental Status Exam Mental Status Exam Patient Appearance: Appropriate Patient Orientation: Person Level of Consciousness: Awake and Alert Patient Behavior: Dependent and Good Eye Contact Mood Description: Anxious Affect Description: Blunted Patient Cognition Impaired: Yes Ability to Follow Directions: Poor Speech Pattern: Rambling and Poor Articulation Thought Process: Confusion Thought Content: positive for Disorganized Judgement: Poor Diagnostics Vital Signs (24Hr): Vital Signs - 24 hr 02/01/25 20:00 02/02/25 08:40 Temperature 98.3 F 98 F Pulse Rate 67 67 Respiratory Rate 18 17 Blood Pressure 107/66 138/75 Pulse Oximetry 100 98 Oxygen Delivery Method Room Air Room Air BMI result Body Mass Index 19.5 Labs 01/21/25 15:38 01/22/25 09:00 Medications Medications Current Medications Acetaminophen (Acetaminophen 325 Mg Tablet) 650 mg PO Q6H PRN PRN Reason: Headache/Pain, Scale 1-10 Last Admin: 02/02/25 04:22 Dose: 650 mg Al Hydroxide/Mg Hydroxide (Magnesium Hydrox/Alum Hydrox 30 Ml Oral.Susp) 30 ml PO Q6H PRN PRN Reason: Heartburn/Nausea Aspirin (Aspirin 81 Mg Tab.Chew) 81 mg PO DAILY [facility] Last Admin: 02/02/25 09:02 Dose: 81 mg Atorvastatin Calcium (Atorvastatin Calcium 80 Mg Tablet) 80 mg PO BEDTIME [facility] Last Admin: 02/01/25 20:49 Dose: 80 mg Calcium Polycarbophil (Calcium Polycarbophil Tablet) 1 tab PO DAILY [facility] Last Admin: 02/02/25 09:01 Dose: 1 tab Clopidogrel Bisulfate (Clopidogrel Bisulfate 75 Mg Tablet) 75 mg PO DAILY [facility] Last Admin: 02/02/25 09:01 Dose: 75 mg Cyanocobalamin (Cyanocobalamin (Vitamin B-12) 1,000 Mcg Tablet) 1,000 mcg PO DAILY [facility] Last Admin: 02/02/25 09:02 Dose: 1,000 mcg Finasteride (Finasteride 5 Mg Tablet) 5 mg PO DAILY [facility] Last Admin: 02/02/25 09:01 Dose: 5 mg Hydroxyzine HCl (Hydroxyzine Hcl 25 Mg Tablet) 25 mg PO Q6H PRN PRN Reason: mild anxiety Last Admin: 02/01/25 00:02 Dose: 25 mg Lamotrigine 100 mg/ (Lamotrigine 50 mg) 150 mg PO BID [facility] Last Admin: 02/02/25 09:01 Dose: 150 mg Magnesium Hydroxide (Milk Of Magnesia 30 Ml Oral.Susp) 30 ml PO DAILY PRN PRN Reason: Constipation Melatonin (Melatonin 3 Mg Tablet) 9 mg PO BEDTIME PRN PRN Reason: Sleep Last Admin: 02/01/25 23:50 Dose: 9 mg Metoprolol Succinate (Metoprolol Succinate Er 25 Mg Tab.Er.24h) 25 mg PO DAILY [facility]; Protocol On Hold: 01/21/25 19:19 Last Admin: 01/21/25 09:38 Dose: 25 mg Nicotine (Nicotine 21 Mg Patch.Td24) 21 mg TRANSDERMA DAILY PRN PRN Reason: nicotine craving Nicotine Polacrilex (Nicotine Polacrilex 2 Mg Gum) 2 mg BUCCAL Q2H PRN PRN Reason: Nicotine Cravings Olanzapine (Olanzapine 2.5 Mg Tablet) 2.5 mg PO BID PRN PRN Reason: agitation Last Admin: 01/29/25 18:27 Dose: 2.5 mg Olanzapine (Olanzapine 2.5 Mg Tablet) 2.5 mg PO BID [facility] Last Admin: 02/02/25 09:02 Dose: 2.5 mg Sertraline HCl (Sertraline Hcl 50 Mg Tablet) 50 mg PO DAILY [facility] Last Admin: 02/02/25 09:02 Dose: 50 mg Thiamine HCl (Thiamine Hcl 100 Mg Tablet) 100 mg PO DAILY [facility] Last Admin: 02/02/25 09:02 Dose: 100 mg Trazodone HCl (Trazodone Hcl 50 Mg Tablet) 50 mg PO BEDTIME PRN PRN Reason: sleep Last Admin: 01/29/25 19:51 Dose: 50 mg Trazodone HCl (Trazodone Hcl 50 Mg Tablet) 50 mg PO BEDTIME [facility] Last Admin: 02/01/25 20:49 Dose: 50 mg Allergies Allergies Allergy/AdvReac Type Severity Reaction Status Date / Time lisinopril Allergy Mild Unknown Verified 01/16/25 01:45 codeine Allergy Unknown Verified 01/16/25 01:45 Assessment & Plan Assessment & Plan (1) Major neurocognitive disorder due to another medical condition with behavioral disturbance: Status: Acute Code(s): F02.818 - Dementia in other diseases classified elsewhere, unspecified severity, with other behavioral disturbance Plan Mr. Nam is a 69 year-old male with dementia s/s to anoxic brain injury along with vascular changes in the brain. He has presented as oriented only to self for more than a year. However, it appears that he is more combative when redirected by when he tries to get out of the house along with more delusional content (also suspect some degree of confabulation). Discussed with brief admission to [facility]. recommend to restart seroquel, adjust dose to 150mg po BID. recheck ekg, monitor QTc<500ms, K>4, Mg>2. PLAN 01/25- mobility significantly improves without seroquel. He does have at baseline significant parkinsonism but at least able to ambulate better (with assistance). will decrease seroquel 50mg po q6h prn for agitation. will continue to monitor parkinsonism and adjust medications. 01/25: Continue current management and treatment plan. 01/26: continue current management and treatment plan. 01/27 will try adding low dose depakote for impulsive/explosive behaviors now that he is off olanzapine. 01/28 scheduled olanzapine 2.5mg po BID. d/c depakote 01/29 continue tx. 02/01/25- less paranoid 0x1- CTP 02/02/25- more talkative today about his which seems clearer and more directed though still very limited- CTP Patient educated on: other Informed Consent: understands and further education needed (needs continued scaffolding around /care) Reason for continued inpatient stay Substantial Risk for: inability to function and rapid decompensation Time Spent With Patient Time: Total time managing care of this patient today ____ minutes.
--- NOTE | 2025-02-02 19:16 | PC.NURSE ---
Spoke with Phyllis Herrera at 7pm on 02/02/25 about missing lower denture. Phyllis clarified she visualized the lower denture in the ER Overflow and was reassured that the lower denture would make it up to the inpatient unit. No lower denture was found in S1. Pt currently has upper denture only. Phyllis is concerned about how pt can continue to eat without specialized denture with surgical titanium studs at [facility]. Phyllis is asking us to contact ER lost and found. patient attendant Karen notified.
[2025-02-02 20:00] VITALS: BP 114/71; PULSE 62; RESP 20; TEMP 36.8; O2SAT 96
[2025-02-03 08:00] VITALS: BP 128/76; PULSE 116; RESP 16; TEMP 36.2; O2SAT 97
--- NOTE | 2025-02-03 08:56 | P.PNPSI_ITS ---
Subjective Subjective Date of Service: 02/03/25 Reason For Visit: disorganization Subjective Notes: Conditional Voluntary Interim History: Pt slept most of the night. He woke up presenting more agitated, asking to go and attempting to stand up but very unsteady, noted what seemed to be myoclonic movement (spontaneous jerk-like movements). He received valium which does help myoclonic like movements. He received IM valium as it acts faster, will increase olanzapine to 5mg po BID, monitor EPS. Pt on close obs- -or 1:1 for safety/fall risk Review of Systems Review of Systems Significant confusion in recent days to weeks. Yes Unobtainable due to mental status Mental Status Exam Mental Status Exam Narrative: Appearance:wearing hospital gown, fair hygiene, in NAD Behavior: cooperative Psychomotor: no agitation or retardation noted Speech: mostly clear, normal rate/rhythm/volume, spontaneous TP: mostly linear 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 insight/judgment: impaired x 2 memory/cog: alert, oriented only to self. severely impaired. Diagnostics Vital Signs (24Hr): Vital Signs - 24 hr 02/02/25 20:00 02/03/25 08:00 Temperature 98.2 F 97.2 F Pulse Rate 62 116 H Respiratory Rate 20 16 Blood Pressure 114/71 128/76 Pulse Oximetry 96 97 Oxygen Delivery Method Room Air Room Air BMI result Body Mass Index 19.5 Labs 01/21/25 15:38 01/22/25 09:00 Medications Medications Current Medications Acetaminophen (Acetaminophen 325 Mg Tablet) 650 mg PO Q6H PRN PRN Reason: Headache/Pain, Scale 1-10 Last Admin: 02/02/25 04:22 Dose: 650 mg Al Hydroxide/Mg Hydroxide (Magnesium Hydrox/Alum Hydrox 30 Ml Oral.Susp) 30 ml PO Q6H PRN PRN Reason: Heartburn/Nausea Aspirin (Aspirin 81 Mg Tab.Chew) 81 mg PO DAILY [facility] Last Admin: 02/03/25 08:47 Dose: Not Given Atorvastatin Calcium (Atorvastatin Calcium 80 Mg Tablet) 80 mg PO BEDTIME [facility] Last Admin: 02/02/25 21:04 Dose: 80 mg Calcium Polycarbophil (Calcium Polycarbophil Tablet) 1 tab PO DAILY [facility] Last Admin: 02/03/25 08:47 Dose: Not Given Clopidogrel Bisulfate (Clopidogrel Bisulfate 75 Mg Tablet) 75 mg PO DAILY [facility] Last Admin: 02/03/25 08:42 Dose: 75 mg Cyanocobalamin (Cyanocobalamin (Vitamin B-12) 1,000 Mcg Tablet) 1,000 mcg PO DAILY [facility] Last Admin: 02/03/25 08:47 Dose: Not Given Finasteride (Finasteride 5 Mg Tablet) 5 mg PO DAILY [facility] Last Admin: 02/03/25 08:42 Dose: 5 mg Hydroxyzine HCl (Hydroxyzine Hcl 25 Mg Tablet) 25 mg PO Q6H PRN PRN Reason: mild anxiety Last Admin: 02/01/25 00:02 Dose: 25 mg Lamotrigine 100 mg/ (Lamotrigine 50 mg) 150 mg PO BID [facility] Last Admin: 02/03/25 08:47 Dose: Not Given Magnesium Hydroxide (Milk Of Magnesia 30 Ml Oral.Susp) 30 ml PO DAILY PRN PRN Reason: Constipation Melatonin (Melatonin 3 Mg Tablet) 9 mg PO BEDTIME PRN PRN Reason: Sleep Last Admin: 02/01/25 23:50 Dose: 9 mg Metoprolol Succinate (Metoprolol Succinate Er 25 Mg Tab.Er.24h) 25 mg PO DAILY [facility]; Protocol On Hold: 01/21/25 19:19 Last Admin: 01/21/25 09:38 Dose: 25 mg Nicotine (Nicotine 21 Mg Patch.Td24) 21 mg TRANSDERMA DAILY PRN PRN Reason: nicotine craving Nicotine Polacrilex (Nicotine Polacrilex 2 Mg Gum) 2 mg BUCCAL Q2H PRN PRN Reason: Nicotine Cravings Olanzapine (Olanzapine 2.5 Mg Tablet) 2.5 mg PO BID PRN PRN Reason: agitation Last Admin: 02/03/25 08:42 Dose: 2.5 mg Olanzapine (Olanzapine 2.5 Mg Tablet) 2.5 mg PO BID [facility] Last Admin: 02/03/25 08:42 Dose: 2.5 mg Sertraline HCl (Sertraline Hcl 50 Mg Tablet) 50 mg PO DAILY [facility] Last Admin: 02/03/25 08:44 Dose: 50 mg Thiamine HCl (Thiamine Hcl 100 Mg Tablet) 100 mg PO DAILY [facility] Last Admin: 02/03/25 08:47 Dose: Not Given Trazodone HCl (Trazodone Hcl 50 Mg Tablet) 50 mg PO BEDTIME PRN PRN Reason: sleep Last Admin: 01/29/25 19:51 Dose: 50 mg Trazodone HCl (Trazodone Hcl 50 Mg Tablet) 50 mg PO BEDTIME [facility] Last Admin: 02/02/25 21:04 Dose: 50 mg Allergies Allergies Allergy/AdvReac Type Severity Reaction Status Date / Time lisinopril Allergy Mild Unknown Verified 01/16/25 01:45 codeine Allergy Unknown Verified 01/16/25 01:45 Assessment & Plan Assessment & Plan (1) Major neurocognitive disorder due to another medical condition with behavioral disturbance: Status: Acute Code(s): F02.818 - Dementia in other diseases classified elsewhere, unspecified severity, with other behavioral disturbance Plan Mr. Nam is a 69 year-old male with dementia s/s to anoxic brain injury along with vascular changes in the brain. He has presented as oriented only to self for more than a year. However, it appears that he is more combative when redirected by when he tries to get out of the house along with more delusional content (also suspect some degree of confabulation). Discussed with brief admission to [facility]. recommend to restart seroquel, adjust dose to 150mg po BID. recheck ekg, monitor QTc<500ms, K>4, Mg>2. PLAN 01/25- mobility significantly improves without seroquel. He does have at baseline significant parkinsonism but at least able to ambulate better (with assistance). will decrease seroquel 50mg po q6h prn for agitation. will continue to monitor parkinsonism and adjust medications. 01/25: Continue current management and treatment plan. 01/26: continue current management and treatment plan. 01/27 will try adding low dose depakote for impulsive/explosive behaviors now that he is off olanzapine. 01/28 scheduled olanzapine 2.5mg po BID. d/c depakote 01/29 continue tx. 02/01/25- less paranoid 0x1- CTP 02/02/25- more talkative today about his which seems clearer and more directed though still very limited- CTP 02/03 increase olanzapine to 5mg po BID. Reason for continued inpatient stay Substantial Risk for: inability to function Time Spent With Patient Time: Total time managing care of this patient today ____ minutes.
[2025-02-03] MEDS: diazePAM 10 MG/2 ML CARTRIDGE 5 MG IM ×2 (10:10→16:55)
[2025-02-03 20:00] VITALS: BP 143/77; PULSE 72; RESP 18; TEMP 36.6; O2SAT 98
[2025-02-04] MEDS: OLANZapine 10 MG VIAL 5 MG IM (01:20)
[2025-02-04] MEDS: diazePAM 10 MG/2 ML CARTRIDGE 2.5 MG IM (01:20)
--- NOTE | 2025-02-04 06:31 | PC.NURSE ---
Patient was restless most evening, fixated on going home, repeatedly attempting to ambulate. Patient was poorly responsive to multiple redirections, congressional assistant provider Celso Lucio notified and 1 x order of 5mg olanzapine and 2.5mg diazepam IM stat given. Patient was agreeable and cooperative, meds administered in R thigh with no issues, effect positive. Patient napped for a few hours shortly after .
[2025-02-04 08:00] VITALS: BP 125/90; PULSE 92; RESP 16; TEMP 37
[2025-02-04] MEDS: calcium polycarbophiL TABLET 1 TAB PO (08:13)
--- NOTE | 2025-02-04 17:04 | HO.PSYCHPN ---
Subjective Subjective Date of Service: 02/04/25 Reason For Visit: disorganization Subjective Notes: Conditional Voluntary Healthcare Proxy: Yes Interim History: Pt slept about 3 hrs, he became combative last night. He received olanzapine 5mg IM and valium 5mg IM. He presents as calmer today. No recollection of what happened day prior. Not oriented to place, month nor situation. he is unsteady in his feet and high risk for falls. no sedation noted, will continue to monitor EPS. Pt on close obs- -or 1:1 for safety/fall risk Review of Systems Review of Systems Significant confusion in recent days to weeks. Yes Unobtainable due to mental status Mental Status Exam Mental Status Exam Narrative: Appearance:wearing hospital gown, fair hygiene, in NAD Behavior: cooperative Psychomotor: no agitation or retardation noted Speech: mostly clear, normal rate/rhythm/volume, spontaneous TP: mostly linear 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 insight/judgment: impaired x 2 memory/cog: alert, oriented only to self. severely impaired. Diagnostics Vital Signs (24Hr): Vital Signs - 24 hr 02/03/25 20:00 02/04/25 08:00 Temperature 97.9 F 98.6 F Pulse Rate 72 92 Respiratory Rate 18 16 Blood Pressure 143/77 H 125/90 H Pulse Oximetry 98 Oxygen Delivery Method Room Air BMI result Body Mass Index 19.5 Labs 01/21/25 15:38 01/22/25 09:00 Medications Medications Current Medications Acetaminophen (Acetaminophen 325 Mg Tablet) 650 mg PO Q6H PRN PRN Reason: Headache/Pain, Scale 1-10 Last Admin: 02/02/25 04:22 Dose: 650 mg Al Hydroxide/Mg Hydroxide (Magnesium Hydrox/Alum Hydrox 30 Ml Oral.Susp) 30 ml PO Q6H PRN PRN Reason: Heartburn/Nausea Aspirin (Aspirin 81 Mg Tab.Chew) 81 mg PO DAILY [facility] Last Admin: 02/04/25 08:15 Dose: 81 mg Atorvastatin Calcium (Atorvastatin Calcium 80 Mg Tablet) 80 mg PO BEDTIME [facility] Last Admin: 02/03/25 20:04 Dose: 80 mg Calcium Polycarbophil (Calcium Polycarbophil Tablet) 1 tab PO DAILY [facility] Last Admin: 02/04/25 08:13 Dose: 1 tab Clopidogrel Bisulfate (Clopidogrel Bisulfate 75 Mg Tablet) 75 mg PO DAILY [facility] Last Admin: 02/04/25 08:15 Dose: 75 mg Cyanocobalamin (Cyanocobalamin (Vitamin B-12) 1,000 Mcg Tablet) 1,000 mcg PO DAILY [facility] Last Admin: 02/04/25 08:15 Dose: 1,000 mcg Finasteride (Finasteride 5 Mg Tablet) 5 mg PO DAILY [facility] Last Admin: 02/04/25 08:13 Dose: 5 mg Hydroxyzine HCl (Hydroxyzine Hcl 25 Mg Tablet) 25 mg PO Q6H PRN PRN Reason: mild anxiety Last Admin: 02/03/25 20:03 Dose: 25 mg Lamotrigine 100 mg/ (Lamotrigine 50 mg) 150 mg PO BID [facility] Last Admin: 02/04/25 08:13 Dose: 150 mg Magnesium Hydroxide (Milk Of Magnesia 30 Ml Oral.Susp) 30 ml PO DAILY PRN PRN Reason: Constipation Melatonin (Melatonin 3 Mg Tablet) 9 mg PO BEDTIME PRN PRN Reason: Sleep Last Admin: 02/03/25 20:04 Dose: 9 mg Metoprolol Succinate (Metoprolol Succinate Er 25 Mg Tab.Er.24h) 25 mg PO DAILY [facility]; Protocol On Hold: 01/21/25 19:19 Last Admin: 01/21/25 09:38 Dose: 25 mg Nicotine (Nicotine 21 Mg Patch.Td24) 21 mg TRANSDERMA DAILY PRN PRN Reason: nicotine craving Nicotine Polacrilex (Nicotine Polacrilex 2 Mg Gum) 2 mg BUCCAL Q2H PRN PRN Reason: Nicotine Cravings Olanzapine (Olanzapine 2.5 Mg Tablet) 2.5 mg PO BID PRN PRN Reason: agitation Last Admin: 02/03/25 20:04 Dose: 2.5 mg Olanzapine (Olanzapine 5 Mg Tablet) 5 mg PO BID [facility] Sertraline HCl (Sertraline Hcl 50 Mg Tablet) 50 mg PO DAILY [facility] Last Admin: 02/04/25 08:14 Dose: 50 mg Thiamine HCl (Thiamine Hcl 100 Mg Tablet) 100 mg PO DAILY [facility] Last Admin: 02/04/25 08:14 Dose: 100 mg Trazodone HCl (Trazodone Hcl 50 Mg Tablet) 50 mg PO BEDTIME PRN PRN Reason: sleep Last Admin: 02/03/25 20:03 Dose: 50 mg Trazodone HCl (Trazodone Hcl 50 Mg Tablet) 50 mg PO BEDTIME [facility] Last Admin: 02/03/25 20:02 Dose: 50 mg Allergies Allergies Allergy/AdvReac Type Severity Reaction Status Date / Time lisinopril Allergy Mild Unknown Verified 01/16/25 01:45 codeine Allergy Unknown Verified 01/16/25 01:45 Assessment & Plan Assessment & Plan (1) Major neurocognitive disorder due to another medical condition with behavioral disturbance: Status: Acute Code(s): F02.818 - Dementia in other diseases classified elsewhere, unspecified severity, with other behavioral disturbance Plan Mr. Nam is a 69 year-old male with dementia s/s to anoxic brain injury along with vascular changes in the brain. He has presented as oriented only to self for more than a year. However, it appears that he is more combative when redirected by when he tries to get out of the house along with more delusional content (also suspect some degree of confabulation). Discussed with brief admission to [facility]. recommend to restart seroquel, adjust dose to 150mg po BID. recheck ekg, monitor QTc<500ms, K>4, Mg>2. PLAN 01/25- mobility significantly improves without seroquel. He does have at baseline significant parkinsonism but at least able to ambulate better (with assistance). will decrease seroquel 50mg po q6h prn for agitation. will continue to monitor parkinsonism and adjust medications. 01/25: Continue current management and treatment plan. 01/26: continue current management and treatment plan. 01/27 will try adding low dose depakote for impulsive/explosive behaviors now that he is off olanzapine. 01/28 scheduled olanzapine 2.5mg po BID. d/c depakote 01/29 continue tx. 02/01/25- less paranoid 0x1- CTP 02/02/25- more talkative today about his which seems clearer and more directed though still very limited- CTP 02/03 increase olanzapine to 5mg po BID. 02/04 combative last night, received olanzapine 5mg IM/ valium 5mg IM. calmer today. Reason for continued inpatient stay Substantial Risk for: inability to function Time Spent With Patient Time: Total time managing care of this patient today ____ minutes.
[2025-02-04 20:00] VITALS: BP 136/85; PULSE 61; RESP 16; TEMP 36.5; O2SAT 98
[2025-02-05] MEDS: calcium polycarbophiL TABLET 1 TAB PO (08:16)
--- NOTE | 2025-02-05 13:24 | HO.HCP ---
Health Care Proxy Invocation Health Care Proxy Declaration: I, Aidee Lucio, NP , on the date cited below, have determined that, Will Nam , lacks the capacity to make or communicate, informed health care decision. This determination is made in accordance with accepted standards of medical judgment and pursuant to [place], the [place] Health Care Proxy Law. The cause, nature, extent and probable duration of the patient's inapacity are described below: Cause:Major Neurocognitive Disorder Nature:chronic and progressive Extent:permanent Probable Duration of Patient's Incapacity:
[2025-02-05 20:00] VITALS: BP 133/83; PULSE 83; TEMP 37.4; O2SAT 95
[2025-02-05] MEDS: OLANZapine 10 MG VIAL 5 MG IM (20:54)
[2025-02-05] MEDS: diazePAM 10 MG/2 ML CARTRIDGE 2.5 MG IM (20:55)
--- NOTE | 2025-02-05 21:30 | P.PNPSI_ITS ---
Subjective Subjective Date of Service: 02/05/25 Reason For Visit: disorganization Subjective Notes: Conditional Voluntary Healthcare Proxy: Yes Interim History: Pt sleeping better. He presents calmer today. He reports he applied to a job and is glad he got it. He states it was a job. He is smiling and pleasant. No behavioral concerns today. Medication Compliance: Yes Diagnostics Vital Signs (24Hr): Vital Signs - 24 hr 02/05/25 20:00 Temperature 99.4 F Pulse Rate 83 Blood Pressure 133/83 Pulse Oximetry 95 Oxygen Delivery Method Room Air BMI result Body Mass Index 19.5 Labs 01/21/25 15:38 01/22/25 09:00 Medications Medications Current Medications Acetaminophen (Acetaminophen 325 Mg Tablet) 650 mg PO Q6H PRN PRN Reason: Headache/Pain, Scale 1-10 Last Admin: 02/02/25 04:22 Dose: 650 mg Al Hydroxide/Mg Hydroxide (Magnesium Hydrox/Alum Hydrox 30 Ml Oral.Susp) 30 ml PO Q6H PRN PRN Reason: Heartburn/Nausea Aspirin (Aspirin 81 Mg Tab.Chew) 81 mg PO DAILY [facility] Last Admin: 02/05/25 08:16 Dose: 81 mg Atorvastatin Calcium (Atorvastatin Calcium 80 Mg Tablet) 80 mg PO BEDTIME [facility] Last Admin: 02/05/25 20:16 Dose: 80 mg Calcium Polycarbophil (Calcium Polycarbophil Tablet) 1 tab PO DAILY [facility] Last Admin: 02/05/25 08:16 Dose: 1 tab Clopidogrel Bisulfate (Clopidogrel Bisulfate 75 Mg Tablet) 75 mg PO DAILY [facility] Last Admin: 02/05/25 08:15 Dose: 75 mg Cyanocobalamin (Cyanocobalamin (Vitamin B-12) 1,000 Mcg Tablet) 1,000 mcg PO DAILY [facility] Last Admin: 02/05/25 08:16 Dose: 1,000 mcg Finasteride (Finasteride 5 Mg Tablet) 5 mg PO DAILY [facility] Last Admin: 02/05/25 08:21 Dose: 5 mg Hydroxyzine HCl (Hydroxyzine Hcl 25 Mg Tablet) 25 mg PO Q6H PRN PRN Reason: mild anxiety Last Admin: 02/04/25 21:36 Dose: 25 mg Lamotrigine 100 mg/ (Lamotrigine 50 mg) 150 mg PO BID [facility] Last Admin: 02/05/25 08:15 Dose: 150 mg Magnesium Hydroxide (Milk Of Magnesia 30 Ml Oral.Susp) 30 ml PO DAILY PRN PRN Reason: Constipation Melatonin (Melatonin 3 Mg Tablet) 9 mg PO BEDTIME PRN PRN Reason: Sleep Last Admin: 02/04/25 21:36 Dose: 9 mg Metoprolol Succinate (Metoprolol Succinate Er 25 Mg Tab.Er.24h) 25 mg PO DAILY [facility]; Protocol On Hold: 01/21/25 19:19 Last Admin: 01/21/25 09:38 Dose: 25 mg Nicotine (Nicotine 21 Mg Patch.Td24) 21 mg TRANSDERMA DAILY PRN PRN Reason: nicotine craving Nicotine Polacrilex (Nicotine Polacrilex 2 Mg Gum) 2 mg BUCCAL Q2H PRN PRN Reason: Nicotine Cravings Olanzapine (Olanzapine 2.5 Mg Tablet) 2.5 mg PO BID PRN PRN Reason: agitation Last Admin: 02/05/25 00:15 Dose: 2.5 mg Olanzapine (Olanzapine 5 Mg Tablet) 5 mg PO BID [facility] Last Admin: 02/05/25 08:15 Dose: 5 mg Sertraline HCl (Sertraline Hcl 50 Mg Tablet) 50 mg PO DAILY [facility] Last Admin: 02/05/25 08:15 Dose: 50 mg Thiamine HCl (Thiamine Hcl 100 Mg Tablet) 100 mg PO DAILY [facility] Last Admin: 02/05/25 08:15 Dose: 100 mg Trazodone HCl (Trazodone Hcl 50 Mg Tablet) 50 mg PO BEDTIME PRN PRN Reason: sleep Last Admin: 02/05/25 00:15 Dose: 50 mg Trazodone HCl (Trazodone Hcl 100 Mg Tablet) 100 mg PO BEDTIME [facility] Last Admin: 02/04/25 21:37 Dose: 100 mg Allergies Allergies Allergy/AdvReac Type Severity Reaction Status Date / Time lisinopril Allergy Mild Unknown Verified 01/16/25 01:45 codeine Allergy Unknown Verified 01/16/25 01:45 Assessment & Plan Assessment & Plan (1) Major neurocognitive disorder due to another medical condition with behavioral disturbance: Status: Acute Code(s): F02.818 - Dementia in other diseases classified elsewhere, unspecified severity, with other behavioral disturbance Plan Mr. Nam is a 69 year-old male with dementia s/s to anoxic brain injury along with vascular changes in the brain. He has presented as oriented only to self for more than a year. However, it appears that he is more combative when redirected by when he tries to get out of the house along with more delusional content (also suspect some degree of confabulation). Discussed with brief admission to [facility]. recommend to restart seroquel, adjust dose to 150mg po BID. recheck ekg, monitor QTc<500ms, K>4, Mg>2. PLAN 01/25- mobility significantly improves without seroquel. He does have at baseline significant parkinsonism but at least able to ambulate better (with assistance). will decrease seroquel 50mg po q6h prn for agitation. will continue to monitor parkinsonism and adjust medications. 01/25: Continue current management and treatment plan. 01/26: continue current management and treatment plan. 01/27 will try adding low dose depakote for impulsive/explosive behaviors now that he is off olanzapine. 01/28 scheduled olanzapine 2.5mg po BID. d/c depakote 01/29 continue tx. 02/01/25- less paranoid 0x1- CTP 02/02/25- more talkative today about his which seems clearer and more directed though still very limited- CTP 02/03 increase olanzapine to 5mg po BID. 02/04 combative last night, received olanzapine 5mg IM/ valium 5mg IM. calmer today. 02/05 continue tx. Reason for continued inpatient stay Substantial Risk for: inability to function Time Spent With Patient Time: Total time managing care of this patient today ____ minutes.
[2025-02-06] MEDS: calcium polycarbophiL TABLET 1 TAB PO (08:37)
[2025-02-06] MEDS: clonazePAM ODT 0.125 MG TAB.RAPDIS 0.25 MG PO ×2 (12:36→20:31)
[2025-02-06 15:25] VITALS: BMI 20.1
[2025-02-06 20:00] VITALS: BP 134/78; PULSE 82; RESP 18; TEMP 36.4; O2SAT 97
--- NOTE | 2025-02-06 20:53 | P.PNPSI_ITS ---
Subjective Subjective Date of Service: 02/06/25 Reason For Visit: disorganization Subjective Notes: Conditional Voluntary Interim History: Pt sleeping better. He presents calmer today. He reports he is doing very well. .He states it was a job. He is smiling and pleasant. No behavioral concerns today. Met with , provided update on medications and clinical presentation. would like to take him home Monday. Review of Systems Review of Systems Significant confusion in recent days to weeks. Yes Unobtainable due to mental status Mental Status Exam Mental Status Exam Narrative: Appearance:wearing hospital gown, fair hygiene, in NAD Behavior: cooperative Psychomotor: no agitation or retardation noted Speech: mostly clear, normal rate/rhythm/volume, spontaneous TP: mostly linear 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 insight/judgment: impaired x 2 memory/cog: alert, oriented only to self. severely impaired. Diagnostics Vital Signs (24Hr): BMI result Body Mass Index 20.1 Labs 01/21/25 15:38 01/22/25 09:00 Medications Medications Current Medications Acetaminophen (Acetaminophen 325 Mg Tablet) 650 mg PO Q6H PRN PRN Reason: Headache/Pain, Scale 1-10 Last Admin: 02/02/25 04:22 Dose: 650 mg Al Hydroxide/Mg Hydroxide (Magnesium Hydrox/Alum Hydrox 30 Ml Oral.Susp) 30 ml PO Q6H PRN PRN Reason: Heartburn/Nausea Aspirin (Aspirin 81 Mg Tab.Chew) 81 mg PO DAILY [facility] Last Admin: 02/06/25 08:51 Dose: 81 mg Atorvastatin Calcium (Atorvastatin Calcium 80 Mg Tablet) 80 mg PO BEDTIME [facility] Last Admin: 02/06/25 20:31 Dose: 80 mg Calcium Polycarbophil (Calcium Polycarbophil Tablet) 1 tab PO DAILY [facility] Last Admin: 02/06/25 08:37 Dose: 1 tab Clonazepam (Clonazepam Odt 0.125 Mg Tab.Rapdis) 0.25 mg PO BID [facility] Last Admin: 02/06/25 20:31 Dose: 0.25 mg Clopidogrel Bisulfate (Clopidogrel Bisulfate 75 Mg Tablet) 75 mg PO DAILY [facility] Last Admin: 02/06/25 08:37 Dose: 75 mg Cyanocobalamin (Cyanocobalamin (Vitamin B-12) 1,000 Mcg Tablet) 1,000 mcg PO DAILY [facility] Last Admin: 02/06/25 08:38 Dose: 1,000 mcg Finasteride (Finasteride 5 Mg Tablet) 5 mg PO DAILY [facility] Last Admin: 02/06/25 08:39 Dose: 5 mg Hydroxyzine HCl (Hydroxyzine Hcl 25 Mg Tablet) 25 mg PO Q6H PRN PRN Reason: mild anxiety Last Admin: 02/04/25 21:36 Dose: 25 mg Lamotrigine 100 mg/ (Lamotrigine 50 mg) 150 mg PO BID [facility] Last Admin: 02/06/25 20:31 Dose: 150 mg Magnesium Hydroxide (Milk Of Magnesia 30 Ml Oral.Susp) 30 ml PO DAILY PRN PRN Reason: Constipation Melatonin (Melatonin 3 Mg Tablet) 9 mg PO BEDTIME PRN PRN Reason: Sleep Last Admin: 02/04/25 21:36 Dose: 9 mg Metoprolol Succinate (Metoprolol Succinate Er 25 Mg Tab.Er.24h) 25 mg PO DAILY [facility]; Protocol On Hold: 01/21/25 19:19 Last Admin: 01/21/25 09:38 Dose: 25 mg Nicotine (Nicotine 21 Mg Patch.Td24) 21 mg TRANSDERMA DAILY PRN PRN Reason: nicotine craving Nicotine Polacrilex (Nicotine Polacrilex 2 Mg Gum) 2 mg BUCCAL Q2H PRN PRN Reason: Nicotine Cravings Olanzapine (Olanzapine 2.5 Mg Tablet) 2.5 mg PO BID PRN PRN Reason: agitation Last Admin: 02/05/25 00:15 Dose: 2.5 mg Olanzapine (Olanzapine 5 Mg Tablet) 5 mg PO BID [facility] Last Admin: 02/06/25 20:31 Dose: 5 mg Sertraline HCl (Sertraline Hcl 50 Mg Tablet) 50 mg PO DAILY [facility] Last Admin: 02/06/25 08:37 Dose: 50 mg Thiamine HCl (Thiamine Hcl 100 Mg Tablet) 100 mg PO DAILY [facility] Last Admin: 02/06/25 08:39 Dose: 100 mg Trazodone HCl (Trazodone Hcl 50 Mg Tablet) 50 mg PO BEDTIME PRN PRN Reason: sleep Last Admin: 02/05/25 00:15 Dose: 50 mg Trazodone HCl (Trazodone Hcl 100 Mg Tablet) 100 mg PO BEDTIME [facility] Last Admin: 02/06/25 20:31 Dose: 100 mg Allergies Allergies Allergy/AdvReac Type Severity Reaction Status Date / Time lisinopril Allergy Mild Unknown Verified 01/16/25 01:45 codeine Allergy Unknown Verified 01/16/25 01:45 Assessment & Plan Assessment & Plan (1) Major neurocognitive disorder due to another medical condition with behavioral disturbance: Status: Acute Code(s): F02.818 - Dementia in other diseases classified elsewhere, unspecified severity, with other behavioral disturbance Plan Mr. Nam is a 69 year-old male with dementia s/s to anoxic brain injury along with vascular changes in the brain. He has presented as oriented only to self for more than a year. However, it appears that he is more combative when redirected by when he tries to get out of the house along with more delusional content (also suspect some degree of confabulation). Discussed with brief admission to [facility]. recommend to restart seroquel, adjust dose to 150mg po BID. recheck ekg, monitor QTc<500ms, K>4, Mg>2. PLAN 01/25- mobility significantly improves without seroquel. He does have at baseline significant parkinsonism but at least able to ambulate better (with assistance). will decrease seroquel 50mg po q6h prn for agitation. will continue to monitor parkinsonism and adjust medications. 01/25: Continue current management and treatment plan. 01/26: continue current management and treatment plan. 01/27 will try adding low dose depakote for impulsive/explosive behaviors now that he is off olanzapine. 01/28 scheduled olanzapine 2.5mg po BID. d/c depakote 01/29 continue tx. 02/01/25- less paranoid 0x1- CTP 02/02/25- more talkative today about his which seems clearer and more directed though still very limited- CTP 02/03 increase olanzapine to 5mg po BID. 02/04 combative last night, received olanzapine 5mg IM/ valium 5mg IM. calmer today. 02/05 continue tx. 02/06 schedule clonazepam 0.25mg po BID Reason for continued inpatient stay Substantial Risk for: inability to function Time Spent With Patient Time: Total time managing care of this patient today ____ minutes.
[2025-02-07 10:40] VITALS: BP 111/68; PULSE 74; RESP 14; TEMP 36.4; O2SAT 99
[2025-02-07] MEDS: calcium polycarbophiL TABLET 1 TAB PO (10:44)
[2025-02-07] MEDS: clonazePAM ODT 0.125 MG TAB.RAPDIS 0.25 MG PO (10:44)
--- NOTE | 2025-02-07 16:02 | P.PNPSI_ITS ---
Subjective Subjective Date of Service: 02/07/25 Reason For Visit: disorganization Subjective Notes: Conditional Voluntary Healthcare Proxy: Yes Interim History: Pt slept through the night. He thinks he owns building and mildly agitated asking to leave. He has been taking medications as prescribed. VS stable. Medication Compliance: Yes Review of Systems Review of Systems Significant confusion in recent days to weeks. Yes Unobtainable due to mental status Mental Status Exam Mental Status Exam Narrative: Appearance:wearing hospital gown, fair hygiene, in NAD Behavior: cooperative Psychomotor: no agitation or retardation noted Speech: mostly clear, normal rate/rhythm/volume, spontaneous TP: mostly linear 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 insight/judgment: impaired x 2 memory/cog: alert, oriented only to self. severely impaired. Diagnostics Vital Signs (24Hr): Vital Signs - 24 hr 02/06/25 20:00 02/07/25 10:40 Temperature 97.6 F 97.5 F Pulse Rate 82 74 Respiratory Rate 18 14 Blood Pressure 134/78 111/68 Pulse Oximetry 97 99 Oxygen Delivery Method Room Air Room Air BMI result Body Mass Index 20.1 Labs 01/21/25 15:38 01/22/25 09:00 Medications Medications Current Medications Acetaminophen (Acetaminophen 325 Mg Tablet) 650 mg PO Q6H PRN PRN Reason: Headache/Pain, Scale 1-10 Last Admin: 02/02/25 04:22 Dose: 650 mg Al Hydroxide/Mg Hydroxide (Magnesium Hydrox/Alum Hydrox 30 Ml Oral.Susp) 30 ml PO Q6H PRN PRN Reason: Heartburn/Nausea Aspirin (Aspirin 81 Mg Tab.Chew) 81 mg PO DAILY [facility] Last Admin: 02/07/25 10:43 Dose: 81 mg Atorvastatin Calcium (Atorvastatin Calcium 80 Mg Tablet) 80 mg PO BEDTIME [facility] Last Admin: 02/06/25 20:31 Dose: 80 mg Calcium Polycarbophil (Calcium Polycarbophil Tablet) 1 tab PO DAILY [facility] Last Admin: 02/07/25 10:44 Dose: 1 tab Clonazepam (Clonazepam Odt 0.5 Mg Tab.Rapdis) 0.5 mg PO BID [facility] Clopidogrel Bisulfate (Clopidogrel Bisulfate 75 Mg Tablet) 75 mg PO DAILY [facility] Last Admin: 02/07/25 10:44 Dose: 75 mg Cyanocobalamin (Cyanocobalamin (Vitamin B-12) 1,000 Mcg Tablet) 1,000 mcg PO DAILY [facility] Last Admin: 02/07/25 10:44 Dose: 1,000 mcg Finasteride (Finasteride 5 Mg Tablet) 5 mg PO DAILY [facility] Last Admin: 02/07/25 10:45 Dose: 5 mg Hydroxyzine HCl (Hydroxyzine Hcl 25 Mg Tablet) 25 mg PO Q6H PRN PRN Reason: mild anxiety Last Admin: 02/04/25 21:36 Dose: 25 mg Lamotrigine 100 mg/ (Lamotrigine 50 mg) 150 mg PO BID [facility] Last Admin: 02/07/25 10:44 Dose: 150 mg Magnesium Hydroxide (Milk Of Magnesia 30 Ml Oral.Susp) 30 ml PO DAILY PRN PRN Reason: Constipation Melatonin (Melatonin 3 Mg Tablet) 9 mg PO BEDTIME PRN PRN Reason: Sleep Last Admin: 02/04/25 21:36 Dose: 9 mg Metoprolol Succinate (Metoprolol Succinate Er 25 Mg Tab.Er.24h) 25 mg PO DAILY [facility]; Protocol On Hold: 01/21/25 19:19 Last Admin: 01/21/25 09:38 Dose: 25 mg Nicotine (Nicotine 21 Mg Patch.Td24) 21 mg TRANSDERMA DAILY PRN PRN Reason: nicotine craving Nicotine Polacrilex (Nicotine Polacrilex 2 Mg Gum) 2 mg BUCCAL Q2H PRN PRN Reason: Nicotine Cravings Olanzapine (Olanzapine 2.5 Mg Tablet) 2.5 mg PO BID PRN PRN Reason: agitation Last Admin: 02/05/25 00:15 Dose: 2.5 mg Olanzapine (Olanzapine 5 Mg Tablet) 5 mg PO BID [facility] Last Admin: 02/07/25 10:44 Dose: 5 mg Sertraline HCl (Sertraline Hcl 50 Mg Tablet) 50 mg PO DAILY [facility] Last Admin: 02/07/25 10:44 Dose: 50 mg Thiamine HCl (Thiamine Hcl 100 Mg Tablet) 100 mg PO DAILY [facility] Last Admin: 02/07/25 10:44 Dose: 100 mg Trazodone HCl (Trazodone Hcl 50 Mg Tablet) 50 mg PO BEDTIME PRN PRN Reason: sleep Last Admin: 02/05/25 00:15 Dose: 50 mg Trazodone HCl (Trazodone Hcl 100 Mg Tablet) 100 mg PO BEDTIME [facility] Last Admin: 02/06/25 20:31 Dose: 100 mg Allergies Allergies Allergy/AdvReac Type Severity Reaction Status Date / Time lisinopril Allergy Mild Unknown Verified 01/16/25 01:45 codeine Allergy Unknown Verified 01/16/25 01:45 Assessment & Plan Assessment & Plan (1) Major neurocognitive disorder due to another medical condition with behavioral disturbance: Status: Acute Code(s): F02.818 - Dementia in other diseases classified elsewhere, unspecified severity, with other behavioral disturbance Plan Mr. Nam is a 69 year-old male with dementia s/s to anoxic brain injury along with vascular changes in the brain. He has presented as oriented only to self for more than a year. However, it appears that he is more combative when redirected by when he tries to get out of the house along with more delusional content (also suspect some degree of confabulation). Discussed with brief admission to [facility]. recommend to restart seroquel, adjust dose to 150mg po BID. recheck ekg, monitor QTc<500ms, K>4, Mg>2. PLAN 01/25- mobility significantly improves without seroquel. He does have at baseline significant parkinsonism but at least able to ambulate better (with assistance). will decrease seroquel 50mg po q6h prn for agitation. will continue to monitor parkinsonism and adjust medications. 01/25: Continue current management and treatment plan. 01/26: continue current management and treatment plan. 01/27 will try adding low dose depakote for impulsive/explosive behaviors now that he is off olanzapine. 01/28 scheduled olanzapine 2.5mg po BID. d/c depakote 01/29 continue tx. 02/01/25- less paranoid 0x1- CTP 02/02/25- more talkative today about his which seems clearer and more directed though still very limited- CTP 02/03 increase olanzapine to 5mg po BID. 02/04 combative last night, received olanzapine 5mg IM/ valium 5mg IM. calmer today. 02/05 continue tx. 02/06 schedule clonazepam 0.25mg po BID 02/07 continue tx. plan to d/c on 02/08 Reason for continued inpatient stay Substantial Risk for: inability to function Time Spent With Patient Time: Total time managing care of this patient today ____ minutes.
[2025-02-07 20:28] VITALS: BP 139/82; PULSE 73; RESP 16; TEMP 36.2; O2SAT 97
[2025-02-07] MEDS: clonazePAM ODT 0.5 MG TAB.RAPDIS PO (20:31)
[2025-02-08 08:00] VITALS: BP 129/70; PULSE 77; RESP 18; TEMP 36.5; O2SAT 98
--- NOTE | 2025-02-08 08:31 | PM.PSYDC ---
DS: Providers Provider Date of Service: 02/08/25 Date of admission: 01/21/25 19:09 Date of discharge: 02/08/25 [facility] DS: Diagnosis Discharge Diagnosis (1) Major neurocognitive disorder due to another medical condition with behavioral disturbance: Status: Acute DS: Medications Discharge Medications Home Medications: Home Medications ?Medication ?Instructions ?Recorded ?Confirmed lamotrigine 150 mg tablet 150 mg PO BID 08/21/23 01/16/25 sertraline 50 mg tablet 50 mg PO BEDTIME 08/21/23 01/16/25 trazodone 50 mg tablet 50 mg PO BEDTIME 08/21/23 01/16/25 aspirin 81 mg chewable tablet 1 tab PO DAILY 09/01/23 01/16/25 atorvastatin 80 mg tablet 80 mg PO BEDTIME 09/01/23 01/16/25 melatonin 10 mg tablet 10 mg PO BEDTIME 06/27/24 01/16/25 quetiapine 25 mg tablet 25 mg PO DAILY 08/19/24 01/16/25 thiamine HCl (vitamin B1) 100 mg 100 mg PO DAILY 08/19/24 01/16/25 tablet quetiapine 100 mg tablet 100 mg PO BID 11/07/24 01/16/25 calcium polycarbophil 625 mg 625 mg PO DAILY 01/16/25 01/16/25 tablet (Fiber (calcium polycarbophil)) cyanocobalamin (vitamin B-12) 1,000 mcg PO DAILY 01/16/25 01/16/25 1,000 mcg tablet melatonin 10 mg tablet 10 mg PO DAILY PRN Sleep 01/16/25 01/16/25 quetiapine 25 mg tablet 50 mg PO BEDTIME 01/16/25 01/16/25 Previous Rx's ?Medication ?Instructions ?Recorded rollator walker with seat and #1 ea 07/08/24 brakes transport wheelchair with footrests #1 ea 07/08/24 clopidogrel 75 mg tablet 75 mg PO DAILY #90 tabs 08/19/24 finasteride 5 mg tablet (Proscar) 5 mg PO DAILY #30 tabs 12/09/24 metoprolol succinate 25 mg 25 mg PO DAILY #90 tabs 12/14/24 tablet,extended release 24 hr clonazepam 0.5 mg disintegrating 0.5 mg PO BID #60 tabs 02/07/25 tablet olanzapine 2.5 mg tablet 2.5 mg PO BID PRN agitation #60 02/07/25 tabs olanzapine 5 mg tablet 5 mg PO BID #60 tabs 02/07/25 trazodone 100 mg tablet 100 mg PO BEDTIME #30 tabs 02/07/25 Mental Status Exam Mental Status Exam Narrative: Appearance:wearing hospital gown, fair hygiene, in NAD Behavior: cooperative Psychomotor: no agitation or retardation noted Speech: mostly clear, normal rate/rhythm/volume, spontaneous TP: mostly linear 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 insight/judgment: impaired x 2 memory/cog: alert, oriented only to self. severely impaired. Data Data Completed and Pending Completed studies during hospitalization [Text1]: 01/16/25 Unknown Urine clean catch - Clean Catch Midstream Urine Culture - Final Janki species DS: Summary Hospital Course Hospital Course: Mr. Nam is a 69 year-old male with hx of dementia s/s to anoxic brain injury/vascular changes to his brain. He is known to this sheet writer through 3 prior assessments, last one last week on 01/08/25. At baseline, his memory/cognition is very impaired and he is not oriented to month, year nor situation. This has been the case for more than one year. This is not an acute change. Spoke with his , Phyllis who reports she is having harder time redirecting him when he attempts to get out of the home. He also has periods of paranoid delusions and declining medications. hopes to still care for him at their home. This sheet writer has talked with in the past informing of need for 24/ supervision due to severe memory/cognitive changes. On the unit, pt presents as pleasant. He is not oriented to situation, month, year nor place. He can briefly hold on the information that he is in the hospital. He is noted to be confabulating as to what is going on. He reports he needs to go to work and hoping we can let him go soon. He denies any physical concerns. No overt signs of psychosis. Past Psychiatric History: Inpt: none prior OP: psychotropic medications managed by neurologist Dr. Hernandez [facility] Hospital Course On the unit, pt was admitted on a CV signed by HCP. Pt is not oriented to place, situation, nor month. 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 There are other times when he does present as very paranoid and thinks there is someone trying to hurt him. When he is paranoid which last a day, he can become very agitated and sometimes combative. He also has underlying movement disorder (parkinsonism) with resting pin rolling tremor bilat, shuffling gait, retropulsion which makes treatment with antipsychotic medications somewhat challenging in that he is more likely to experience exacerbation of EPS.He was also noted to have what seemed to be myoclonic movements upper extremities. These episodes were not daily but about every other day or so. With this in mind, he was switch from seroquel to olanzapine, as olanzapine may be better antipsychotic with anticholinergic properties. He tolerated increase in olanzapine to 5mg po BID. He was also started on clonazepam 0.5mg po BID. He was continued on lamictal which he is on for seizures. he was kept on a one to one due to unsteady gait. Most of the days he presented with euthymic mood albeit his lack of orientation. With exeption of some sporadic days that he was paranoid. He did receive IM medication for agitation during this episodes consisting on low dose of olanzapine 5mg IM and Diazepam 5mg IM with good effect. He is sensitive to the effects of medications thus caution needed when these are titrated. We had meeting with to go over medication changes, cognitive/memory impairments. Status at Discharge Cognitive/behavioral status at discharge: pt with brighter affect, non labile. not oriented to place, month nor situation. confabulation which changes daily. Functional status at discharge: uses cane/walker Overall status at discharge: patient is back to baseline Time Spent with Patient Time attestation: Total time managing care of this patient today __45__ minutes. Time spent: Greater than 30 minutes Discharge Plan Discharge Anticipated Discharge Date/Time: 02/08/25 08:00 Patient Disposition: Home, Self-Care Discharge Diagnosis: Major Neurocognitive Disorder Referrals: [facility] [Outside] - 3-5 Days Referral Note: [facility] will start medication management for Will after discharge. They will start either monday or monday and they will contact you before hand to set up specific times and dates. If you do not hear from them after discharges please call the number listed [facility] [Outside] - 3-5 Days Referral Note: [facility] [employer] will started services when he is discharged. I have left a message with her Access CAre Worker Parth and his information will be sent to her after discharge. Please reach out to Lynne by calling [phone] Ext. [phone]. If they have not reached out to you 3-5 days after discharge please call her at the number provided. Avery Price APRN [Registered Nurse, Psychology] - 02/21/25 10:00 am Referral Note: An appointment for Avery Price had been made for 02/21 at 10:00am. When doing into the appointment please arrive 10 minutes early for intake paperwork and bring in his insurance cards. If you need to reschedule or cancel the appointment please call the number listed. Leon Godinez, ASSOCIATE PROFESSOR OF PHILOSOPHY- [Primary Care Provider, Internal Medicine] - 3-5 Days Referral Note: Dr. Feng office will be reaching out to set up an appointment after discharge. If you have not received a call from them 3-5 days after discharge please call the office at the number provided. Discharge Medications: New clonazepam 0.5 mg Tablet,Disintegrating 0.5 mg PO BID Qty: 60 0RF olanzapine 5 mg Tablet 5 mg PO BID Qty: 60 0RF olanzapine 2.5 mg Tablet 2.5 mg PO BID PRN (Reason: agitation) Qty: 60 0RF trazodone 100 mg Tablet 100 mg PO BEDTIME Qty: 30 0RF Continued (DME) rollator walker with seat and brakes See Rx Instructions .Route .MEDSUPPLY Qty: 1 0RF Rx Instructions: As directed (DME) transport wheelchair with footrests See Rx Instructions .Route .MEDSUPPLY Qty: 1 0RF Rx Instructions: As directed atorvastatin 80 mg tablet 80 mg PO BEDTIME aspirin 81 mg tablet,chewable 1 tab PO DAILY melatonin 10 mg Tablet 10 mg PO BEDTIME cyanocobalamin (vitamin B-12) 1,000 mcg Tablet 1,000 mcg PO DAILY calcium polycarbophil [Fiber (calcium polycarbophil)] 625 mg Tablet 625 mg PO DAILY lamotrigine 150 mg tablet 150 mg PO BID sertraline 50 mg tablet 50 mg PO BEDTIME finasteride [Proscar] 5 mg tablet 5 mg PO DAILY Qty: 30 5RF thiamine HCl (vitamin B1) 100 mg tablet 100 mg PO DAILY clopidogrel 75 mg tablet 75 mg PO DAILY Qty: 90 3RF Discontinued metoprolol succinate 25 mg tablet extended release 24 hr 25 mg PO DAILY Qty: 90 2RF quetiapine 25 mg tablet 25 mg PO DAILY Rx Instructions: 125 mg daily and 150 mg bedtime quetiapine 25 mg tablet 50 mg PO BEDTIME Rx Instructions: 125 mg daily and 150 mg bedtime melatonin 10 mg Tablet 10 mg PO DAILY PRN (Reason: Sleep) trazodone 50 mg tablet 50 mg PO BEDTIME quetiapine 100 mg tablet 100 mg PO BID Rx Instructions: 125 mg daily and 150 mg bedtime Discharge Orders: Discharge Order (Routine); Ordered 02/08/25 Ordered By: Aidee Lucio Diet: Regular diet Activity on Discharge: Use cane or walker Stand Alone Forms: Patient Portal Discharge page Print Language: Nepali Care Plan Goals: maintain mood no SI/HI less periods of agitation/no aggression Health Concerns: Follow up with PCP Plan of Treatment: 1. Take medications as prescribed 2. Go to nearest ED or call 911 in event of emergency Assessment: pt with brighter, non labile. not oriented to place, month, year nor situation. Sleeping well. confabulation. speech mostly clear. Linear thought process. No receptive aphasia. very poor ability to retain information.
[2025-02-08] MEDS: clonazePAM ODT 0.5 MG TAB.RAPDIS PO (09:05)
--- NOTE | 2025-02-08 12:04 | PC.NURSE ---
Patient was aware of his discharge. Discharge instructions given to the patient and his Elvira. They left the unit at 11:46, took pt's belongings with them.
== END 2025-02-08 11:46 | disposition home or self-care (01) | DRG 92 ==
LOC: HO.ED 01-20 14:34 → HO.PGERI 01-21 20:09
PROVIDERS: Nurse Practitioner Family; Social Worker; Admitting Provider Nurse Practitioner Psychiatric/Mental Health; Emergency Provider Emergency Medicine; PCP Nurse Practitioner Family; Visit Provider Nurse Practitioner Psychiatric/Mental Health
DX: G93.1 Anoxic brain damage, not elsewhere classified (principal); F01.511 Vascular dementia, unspecified severity, with agitation; I25.10 Atherosclerotic heart disease of native coronary artery without angina pectoris; G40.909 Epilepsy, unspecified, not intractable, without status epilepticus; J43.9 Emphysema, unspecified; N31.9 Neuromuscular dysfunction of bladder, unspecified; Z86.74 Personal history of sudden cardiac arrest; Z79.82 Long term (current) use of aspirin; Z79.899 Other long term (current) drug therapy
CPT/HCPCS: 36415; 80053; 80061; 80143; 80179; 80307; 81001; 82140; 82947; 83036; 84439; 84443; 85025; 87086; 87088; 93005; 97162; 99285; J2359; J3360; S9485

== ENCOUNTER → 2025-01-16 04:38 | Outpatient (BNV) | payer MEDICARE, SELFPAY | PROVIDERS: Emergency Provider Emergency Medicine; PCP Nurse Practitioner Family; Visit Provider Clinical Nurse Specialist Psychiatric/Mental Health, Adult | DX: F03.918 Unspecified dementia, unspecified severity, with other behavioral disturbance (principal) | CPT/HCPCS: 90792; 99231; 99232; 99283; 99499 ==

== ENCOUNTER → 2025-01-16 04:38 | Outpatient (BNV) | payer MEDICARE, SELFPAY | PROVIDERS: Emergency Provider Emergency Medicine; Visit Provider Psychiatry & Neurology Neurology | DX: G93.40 Encephalopathy, unspecified (principal) | CPT/HCPCS: 99283 ==

== ENCOUNTER → 2025-01-20 10:54 | Outpatient (BNV) | payer MEDICARE, SELFPAY | PROVIDERS: Emergency Provider Emergency Medicine; PCP Nurse Practitioner Family; Visit Provider Internal Medicine Cardiovascular Disease | DX: I45.10 Unspecified right bundle-branch block (principal) | CPT/HCPCS: 93010 ==

== ENCOUNTER 2025-02-13 14:14 | Outpatient (AMB) | payer MEDICARE, SELFPAY ==
[2025-02-13 14:17] VITALS: BP 112/78; PULSE 72; RESP 16; TEMP 37.2; O2SAT 96; BMI 21.8
--- NOTE | 2025-02-13 14:17 | A.OFFPC_ITS ---
Vital Signs 02/13/25 14:17 Height 5 ft 10 in Weight 152 lb BMI 21.8 BP 112/78 Blood Pressure Location Lt brachial Position Sitting Respiration 16 Pulse 72 Pulse Source Pulse Oximeter Temp 98.9 F Temp Source Oral Pulse Oximetry (%) 96 Oxygen Delivery Method Room Air Intake Visit Reasons: follow up Diagnostics Tech Required: No Accompanied by: Self / Same As Patient Allergies lisinopril Allergy (Mild, Verified 02/13/25 15:32) Unknown codeine Allergy (Verified 02/13/25 15:32) Unknown Medication List - Last Reconciled 02/13/25 by ANTONINA Coley- aspirin 1 tab PO DAILY atorvastatin 80 mg PO BEDTIME calcium polycarbophil (Fiber (calcium polycarbophil)) 625 mg PO DAILY clonazepam (Klonopin) 0.5 mg PO BID clopidogrel 75 mg PO DAILY cyanocobalamin (vitamin B-12) 1,000 mcg PO DAILY finasteride (Proscar) 5 mg PO DAILY lamotrigine 150 mg PO BID melatonin 10 mg PO BEDTIME olanzapine 2.5 mg PO BID PRN olanzapine 5 mg PO BID [rollator walker with seat and brakes As directed] sertraline 50 mg PO BEDTIME thiamine HCl (vitamin B1) 100 mg PO DAILY [transport wheelchair with footrests As directed] trazodone 100 mg PO BEDTIME Tobacco use date assessed: 08/19/24 Fall risk assessment: No Falls in past year Last assessed Fall Risk: 02/13/25 Dental Screening Dental Screen Date: 02/13/25 Did you have a dental visit in the last 12 months?: Yes Did you have a dental problem in the last 6 months where you did not have access to dental care?: No Was dental information given to patient?: Patient has dentist HPI follow up HPI Details Chief Complaint The patient presents with delusional behavior and spontaneous actions. History of Present Illness The patient is a 69-year-old male presenting with psychiatric symptoms and medic ation management. He has a history of traumatic brain injury and myocardial infarction, which have contributed to his current neurological and psychiatric conditions. The patient has been diagnosed with Parkinson's disease and dementia, which have progressively affected his cognitive and motor functions. Recently, he became more delusional and exhibited spontaneous behavior, such as visiting a patient's house uninvited, which led to police involvement. He was admitted to the psychiatric unit where his medications were adjusted. He is currently on clonazepam and olanzapine, with trazodone as needed, to manage his psychiatric symptoms. The patient follows up with a neurologist and has an upcoming appointment with a new psychiatrist. His , who is his primary caregiver, reports feeling exhausted due to his unpredictable behavior. Pt denies any si or hi Social History - Family status: The patient's is h is primary caregiver. Health Maintenance Review of Systems limited ROS, due to pt's mental state, though answering questions mostly appropriately Physical Exam General: Cooperative, healthy appearing, comfortable, no acute distress and well developed Orientation: no A + O Limitations: anoxious brain injury, psych hx, dementia, parkinsons Head: Normal to inspection Ears: Hearing grossly normal bilaterally Nose: Normal external nose present Face and sinus: Normal facial exam Eyes: Appearance normal, both eyes and all related structures Neck: Normal visual inspection and Yes full ROM Respiratory: Normal respiratory effort and able to speak in complete sentences. Clear to auscultation bilaterally Cardiovascular: Regular rate and rhythm. Normal S1 and S2. No carotid bruits noted GI: Normal to inspection. Soft to palpation and nontender Neuro: shuffling gait Extremities: Normal to inspection Results Plan The patient will continue with his current medication regimen, including clonazepam and olanzapine, with trazodone as needed for psychiatric symptom man agement. He will follow up with his neurologist and has an appointment scheduled with a new psychiatrist at the end of the month. His is advised to contact the clinician with any further questions or concerns regarding his care. Patient Instructions - Continue taking clonazepam and olanzap ine as prescribed, with trazodone as needed. - Follow up with the neurologist and att end the upcoming psychiatrist appointment. - Contact the clinician with any questio ns or concerns. [facility] Medical History (Updated 02/13/25 @ 15:32 by LUIZ Coley) Dementia Complex partial seizures Anxiety Seizure disorder Hypertension CAD (coronary artery disease) BPH loc w urin obs/LUTS Contusion of left chest wall Emphysema of lung Neurogenic bladder Prostate nodule Ataxia Anoxic brain injury Epilepsy Compulsive behavior disorder Cardiac arrest Surgical History No pertinent past surgical history Social History Household Members: Spouse Housing: House Do you presently have visiting nurse or other home services: No Alcohol intake: never Comment: 1-1 Patient Tobacco Use Status: Former Tobacco user e-Cigarette/Vaping Use: Never Used Substance Use Type: Marijuana Advance Directives Date on File: 07/04/24 service: No Current occupational status: retired Sexual orientation: Straight/Heterosexual Cognitive needs: No Hearing needs: No Vision needs: No Questionnaire PHQ-9 Over the last 2 weeks, how often have you been bothered by any of the following problems? 1. Little interest or pleasure in doing things: not at all 2. Feeling down, depressed, or hopeless: not at all 3. Trouble falling or staying asleep, or sleeping too much: not at all 4. Feeling tired or having little energy: not at all 5. Poor appetite or overeating: not at all 6. Feeling bad about yourself - or that you are a failure or have let yourself or your family down: not at all 7. Trouble concentrating on things, such as reading the newspaper or watching television: not at all 8. Moving or speaking so slowly that other people could have noticed. Or the opposite - being so fidgety or restless that you have been moving around a lot more than usual: not at all 9. Thoughts that you would be better off or of hurting yourself in some way: not at all Total score: 0 Depression Screening Interpretation: Negative Depression Screening Done: Yes 56859 - PHQ-9 Billing: Yes Source: Developed by Drs. Musa Corado, Brandi Vo, Vinod Leblanc and colleagues, with an educational fani from [employer]. Thrive Questionnaire Date Thrive assessed: 08/19/24 I am a: Patient What is your living situation today?: I have a steady place to live Within the past 12 months, did the food you bought not last and you didn't have the money to get more?: I choose not to answer this question Within the past 12 months, did you worry whether your food would run out before you got money to buy more?: I choose not to answer this question Do you have trouble paying for medicines?: No Do you have trouble getting transportation to medical appointments?: No Do you have trouble paying your heating and electricity bill?: No Do you have trouble taking care of your child, family member or friend?: I choose not to answer this question Do you have trouble with day-to-day activities such as bathing, preparing meals, shopping, managing finances, etc.?: No Are you currently unemployed and looking for a job?: No Are you interested in more education?: No Please select the resources that you would like help with: None Currently or been in a relationship where the following occur: I choose not to answer THRIVE Score: 0 CRISTIAN-7 AMB Questionnaire CRISTIAN-7 Date CRISTIAN - 7 assessed: 02/13/25 Feeling nervous, anxious, or on edge: 0 = Not at all Not being able to stop or control worryin = Not at all Worrying too much about different things: 0 = Not at all Trouble relaxin = Not at all Being so restless that it is hard to sit still: 0 = Not at all Becoming easily annoyed or irritable: 0 = Not at all Feeling afraid as if something awful might happen: 0 = Not at all Total CRISTIAN-7 score (0-4 normal; 5-9 mild; 10-14 moderate; 15-21 severe): 0 Source: Developed by Drs. Musa Corado, Brandi Vo, Vinod Leblanc and colleagues, with an educational fani from [employer]. CRISTIAN-7 Assessment Billing CRISTIAN-7 Assessment Tool: CRISTIAN-7 Assessment 85910 Physical exam (Primary Care) Vital Signs: Last Vital Signs Temp 98.9 F 02/13/25 14:17 Pulse 72 02/13/25 14:17 Resp 16 02/13/25 14:17 BP 112/78 02/13/25 14:17 Pulse Ox 96 02/13/25 14:17 Oxygen Delivery Method Room Air 02/13/25 14:17 BMI result Body Mass Index 21.8 Tobacco/Smoking Status: Tobacco use Status Tobacco use date assessed 08/19/24 02/13/25 14:29 Patient Tobacco Use Status Former Tobacco user 02/13/25 14:29 e-Cigarette/Vaping Use Never Used 02/13/25 14:29 PHQ-9: PHQ-9 Score PHQ-9: Total score 0 02/13/25 14:29 Depression Screening Interpretation: Negative Thrive Assessment: Date of Thrive Assessment Date Thrive assessed 08/19/24 02/13/25 14:29 Currently or been in a relationship where the following occur: I choose not to answer Coding Level of Care Code Est Pt Level 3 (39849) Diagnoses Compulsive behavior disorder F60.5 Anoxic brain injury G93.1 Major neurocognitive disorder due to another medical condition with behavioral disturbance F02.818 Additional Codes CRISTIAN-7 Assessment Billing - CRISTIAN-7 Assessment Tool: CRISTIAN-7 Assessment 08565 ([id number]) PHQ-9 - 44528 - PHQ-9 Billing: Yes ([id number]) Assessment & Plan Assessment & Plan (1) Compulsive behavior disorder: Code(s): F60.5 - Obsessive-compulsive personality disorder Category: Medical (2) Anoxic brain injury: Code(s): G93.1 - Anoxic brain damage, not elsewhere classified Category: Medical (3) Major neurocognitive disorder due to another medical condition with behavioral disturbance: Code(s): F02.818 - Dementia in other diseases classified elsewhere, unspecified severity, with other behavioral disturbance Category: Medical Plan .
--- OUTSIDE RECORDS SUMMARY | 2025-02-13 15:01 | XMS_ITS | Clinical Summary ---
Author Organization [facility] Address [address] [place] [address] Care Team Providers Care Procurement Agent Name Role Phone Beni Moore MD Primary Care Provider [phone] Allergies Active Allergy Reactions Criticality Noted Date [...] age to complete this topic Care Teams Procurement Agent Relationship Specialty Start Date End Date Beni Moore MD PCP - General Internal Medicine 08/09/21
--- OUTSIDE RECORDS SUMMARY | 2025-02-13 15:01 | XMS_ITS | Encounter Summary ---
Author Organization [facility] Address [address] [place] [address] Care Team Providers Care Dinkey Engine Firer/Fireman Name Role Phone Ariana Sidhu MD Primary Care Provider [phone] Encounter Details Date Type Department Care Team (Late st Contact Info) Description 07/23/2024 Lab Requisition [facility] - Main Lab [address] [facility] [place] [address] Matthew Lynn MD [address] [place] [id number] Encounter for other general examination Social History [...] stimulating hormone (07/23/2024 5:35 AM EST) [facility] TSH 1.96 0.40 - 4.00 mcIU/mL LAB CHEMISTRY METHOD 07/23/2024 5:28 PM EST [facility] Blood Venous blood specimen / Unknown Venipuncture / Unknown 07/23/2024 5:35 AM EST 07/23/2024 9:54 AM EST us Matthew Lynn MD LAB BLOOD ORDERABLES Final Resu lt [facility] [address] [place] [address], [place] [phone] * (ABNORMAL) CBC auto differential (07/23/2024 5:35 AM EST) [facility] WBC 7.1 4.8 - 10.8 K/mcL LAB HEMETOLOGY METHOD 07/23/2024 10:44 AM [facility] RBC 3.20(L) 4.50 - 5.50 M/mcL LAB HEMETOLOGY METHOD 07/23/2024 10:44 AM [facility] Hemoglobin 10.3(L) 13.5 - 17.5 g/dL LAB HEMETOLOGY METHOD 07/23/2024 10:44 AM [facility] Hematocrit 31.0(L) 42.0 - 54.0 % LAB HEMETOLOGY METHOD 07/23/2024 10:44 AM [facility] MCV 97.8 79.0 - 98.0 FL LAB HEMETOLOGY METHOD 07/23/2024 10:44 AM [facility] MCH 32.5(H) 27.0 - 32.0 pcg LAB HEMETOLOGY METHOD 07/23/2024 10:44 AM [facility] MCHC 33.2 32.0 - 37.0 g/dL LAB HEMETOLOGY METHOD 07/23/2024 10:44 AM [facility] RDW 17.6(H) 11.0 - 15.0 % LAB HEMETOLOGY METHOD 07/23/2024 10:44 AM [facility] Platelets 554(H) 130 - 400 K/mcL LAB HEMETOLOGY METHOD 07/23/2024 10:44 AM [facility] MPV 10.0 7.0 - 11.0 FL LAB HEMETOLOGY METHOD 07/23/2024 10:44 AM [facility] NRBC 0.0 <1.0 % LAB HEMETOLOGY METHOD 07/23/2024 10:44 AM [facility] NRBC Absolute 0.00 <0.10 K/mcL LAB HEMETOLOGY METHOD 07/23/2024 10:44 AM [facility] Neutrophils Relative 39.3 % LAB HEMETOLOGY METHOD 07/23/2024 10:44 AM [facility] Lymphocytes Relative 44.8 % LAB HEMETOLOGY METHOD 07/23/2024 10:44 AM [facility] Monocytes Relative 13.1 % LAB HEMETOLOGY METHOD 07/23/2024 10:44 AM [facility] Eosinophils Relative 1.6 % LAB HEMETOLOGY METHOD 07/23/2024 10:44 AM [facility] Basophils Relative 0.6 % LAB HEMETOLOGY METHOD 07/23/2024 10:44 AM [facility] Immature Granulocytes Relative 0.6 % LAB HEMETOLOGY METHOD 07/23/2024 10:44 AM [facility] Neutrophils Absolute 2.79 1.50 - 7.00 K/mcL LAB HEMETOLOGY METHOD 07/23/2024 10:44 AM [facility] Lymphocytes Absolute 3.17 1.00 - 5.00 K/mcL LAB HEMETOLOGY METHOD 07/23/2024 10:44 AM EST [facility] Monocytes Absolute 0.93 0.20 - 1.00 K/[facility] LAB HEMETOLOGY METHOD 07/23/2024 10:44 AM EST [facility] Eosinophils Absolute 0.11 0.00 - 0.50 K/[facility] LAB HEMETOLOGY METHOD 07/23/2024 10:44 AM EST [facility] Basophils Absolute 0.04 0.00 - 0.20 K/[facility] LAB HEMETOLOGY METHOD 07/23/2024 10:44 AM EST [facility] Immature Granulocytes Absolute 0.04(H) 0.00 - 0.03 K/[facility] LAB HEMETOLOGY METHOD 07/23/2024 10:44 AM EST [facility] Blood Venous blood specimen / Unknown Venipuncture / Unknown 07/23/2024 5:35 AM EST 07/23/2024 9:54 AM EST us Matthew Lynn MD LAB BLOOD ORDERABLES Final Resu lt Performing Organization Address City/[facility]/ZIP Co de Phone Number [facility] [address] [place] [address], [place] [phone] * Magnesium (07/23/2024 5:35 AM EST) Magnesium 2.3 1.9 - 2.6 mg/dL LAB CHEMISTRY METHOD 07/23/2024 11:15 AM EST [facility] Blood Venous blood specimen / Unknown Venipuncture / Unknown 07/23/2024 5:35 AM EST 07/23/2024 9:54 AM EST us Matthew Lynn MD LAB BLOOD ORDERABLES Final Resu lt [facility] [address] [place] [address], [place] [phone] * (ABNORMAL) Comprehensive metabolic panel (07/23/2024 5:35 AM EST) Sodium 135 133 - 145 mmol/L LAB CHEMISTRY METHOD 07/23/2024 11:15 AM [facility] Potassium 4.5 3.5 - 5.5 mmol/L LAB CHEMISTRY METHOD 07/23/2024 11:15 AM [facility] Chloride 103 96 - 110 mmol/L LAB CHEMISTRY METHOD 07/23/2024 11:15 AM [facility] CO2 25 21 - 32 mmol/L LAB CHEMISTRY METHOD 07/23/2024 11:15 AM [facility] Anion Gap 7 3 - 11 LAB CHEMISTRY METHOD 07/23/2024 11:15 AM [facility] Glucose 81 70 - 100 mg/dL LAB CHEMISTRY METHOD 07/23/2024 11:15 AM [facility] BUN 19 5 - 25 mg/dL LAB CHEMISTRY METHOD 07/23/2024 11:15 AM [facility] Creatinine 1.19 0.70 - 1.30 mg/dL LAB CHEMISTRY METHOD 07/23/2024 11:15 AM [facility] eGFR 67 >=60 mL/min/1. 73m2 LAB CHEMISTRY METHOD 07/23/2024 11:15 AM [facility] Comment:Calculation based on the Chronic Kidney Disease Epidemiology Collaboration (CKD-EPI) equation refit without adjustment for race. BUN/Creatinine Ratio 16.0 LAB CHEMISTRY METHOD 07/23/2024 11:15 AM [facility] Calcium 8.8 8.5 - 10.5 mg/dL LAB CHEMISTRY METHOD 07/23/2024 11:15 AM [facility] AST (SGOT) 66(H) 10 - 42 unit/L LAB CHEMISTRY METHOD 07/23/2024 11:15 AM [facility] ALT (SGPT) 74(H) 10 - 60 unit/L LAB CHEMISTRY METHOD 07/23/2024 11:15 AM EST [facility] Alkaline Phosphatase 120 42 - 121 unit/L LAB CHEMISTRY METHOD 07/23/2024 11:15 AM EST [facility] Total Protein 6.9 6.0 - 8.0 g/dL LAB CHEMISTRY METHOD 07/23/2024 11:15 AM EST [facility] Albumin 3.8 3.2 - 5.0 g/dL LAB CHEMISTRY METHOD 07/23/2024 11:15 AM [facility] Total Bilirubin 0.4 0.0 - 1.4 mg/dL LAB CHEMISTRY METHOD 07/23/2024 11:15 AM [facility] Blood Venous blood specimen / Unknown Venipuncture / Unknown 07/23/2024 5:35 AM EST 07/23/2024 9:54 AM EST us Matthew Lynn MD LAB BLOOD ORDERABLES Final Resu lt [facility] [address] [place] [address], [place] [phone] documented in this encounter Visit Diagnoses Diagnosis Encounter for other general examination documented in this encounter Care Teams Dinkey Engine Firer/Fireman Relationship Specialty Start Date End Date Ariana Sidhu MD [address] [place] [address] PCP - General Internal Medicine 04/22/15 documented as of this encounter
--- OUTSIDE RECORDS SUMMARY | 2025-02-13 15:01 | XMS_ITS | Clinical Summary ---
Author Organization [facility] Facility Address [address] [address] Care Team Providers Care Regulatory Affairs Manager Name Role Phone Unavailable Primary Care Provider Unavailabl e Allergies No known active allergies Medications aspirin ([facility]) 81 MG EC tablet Take 81 mg [...] patient's age to complete this topic [facility]
--- OUTSIDE RECORDS SUMMARY | 2025-02-13 15:01 | XMS_ITS ---
Author Name [facility] Organization Unknown Care Team Organization Name Specialty Phone Email Start Date End Da te [facility] Ariana Sidhu Primary Care 05/10/2022
--- OUTSIDE RECORDS SUMMARY | 2025-04-10 20:00 | XMS_ITS | Clinical Summary ---
Author Organization Unknown Care Team Providers Care Twist Tester Name Role Phone DUDLEY MEDINA, ADONIS Unavailable Unavailable CHAD MONREAL, SERAFIN Unavailable Unavailable Payers Payer Name Policy Type Policy Number Effective Date Expira tion Date [place] - [place] [id number] Problems Condition Name Condition Details Condition Category Status Onset Date Resolution Date Last Treatment Date Treating Clinician Comments UNSP DEMENTIA, UNSP SEVERITY, WITHOUT BEH/PSYCH/M OOD/ANX Active 01-16 00:00: 00 Allergies, Adverse Reactions, Alerts Allergy Name Allergy Type Status Severity Reaction(s) Onset Date Inactive Date Treating Clinician Comments LISINOPRIL Propensity to adverse reactions Active 02-12 06:27: 20 CODEINE Propensity to adverse reactions Active 02-12 06:27: 29 Vital Signs Vital Name Observation Time Observation Value Commen ts BMI (%) 2025-02-11 12:18:00.000 18 kg/m2 Height 2025-02-11 12:18:00.000 73 [in_us] Pulse 2025-02-11 12:18:00.000 74 /min O2 Saturation (%) 2025-02-11 12:18:00.000 98 % Respirations 2025-02-11 12:18:00.000 20 /min Weight (lbs) 2025-02-11 12:18:00.000 143 [lb_av] Systolic Blood Pressure 2025-02-11 12:18:00.000 107 mm [Hg] Diastolic Blood Pressure 2025-02-11 12:18:00.000 82 mm [Hg] Plan of Treatment Planned Activity Planned Date Details Comments Future Scheduled Test SKILLED NU RSE TO EVALUATE PATIENT, IDENTIFY PRIMARY AND CO-MORBID CONDITIONS CODED PER CODING GUIDELINES, AND DEVELOP PATIENT SPECIFIC PLAN OF CARE THAT INCLUDES PATIENT GOAL FOR HOME HEALTH. [code = SKILLED NURSE TO EVALUATE PATIENT, IDENTIFY PRIMARY AND CO-MORBID CONDITIONS CODED PER CODING GUIDELINES, AND DEVELOP PATIENT SPECIFIC PLAN OF CARE THAT INCLUDES PATIENT GOAL FOR HOME HEALTH.] Future Scheduled Test SKILLED NU RSE WILL MAINTAIN SITUATIONAL AWARENESS FOR SAFETY AND WILL NOTIFY CLINICAL MUCK FARMER AND PHYSICIAN/PROVIDER WITH ANY CHANGE IN CONDITION. [code = SKILLED NURSE WILL MAINTAIN SITUATIONAL AWARENESS FOR SAFETY AND WILL NOTIFY CLINICAL MUCK FARMER AND PHYSICIAN/PROVIDER WITH ANY CHANGE IN CONDITION.] Future Scheduled Test SKILLED NU RSE TO O/A OF PATIENTS MENTAL/BEHAVIORAL STATUS, ASSESS VITAL SIGNS 2WK8 ALLOW 2 PRNS FOR MEDICATION MANAGEMENT. [code = SKILLED NURSE TO O/A OF PATIENTS MENTAL/BEHAVIORAL STATUS, ASSESS VITAL SIGNS 2WK8 ALLOW 2 PRNS FOR MEDICATION MANAGEMENT.] Future Scheduled Test SKILLED NU RSE TO REVIEW PATIENT MEDICATIONS. INSTRUCT PATIENT/CAREGIVER ON MONITORING OF EFFECTIVENESS, ADVERSE DRUG REACTIONS, SIDE EFFECTS OF ALL MEDICATIONS (PRESCRIPTION/-OTC), AND HOW AND WHEN TO REPORT PROBLEMS. [code = SKILLED NURSE TO REVIEW PATIENT MEDICATIONS. INSTRUCT PATIENT/CAREGIVER ON MONITORING OF EFFECTIVENESS, ADVERSE DRUG REACTIONS, SIDE EFFECTS OF ALL MEDICATIONS (PRESCRIPTION/-OTC), AND HOW AND WHEN TO REPORT PROBLEMS.] Future Scheduled Test SN TO INST RUCT CAREGIVER ON MANAGEMENT OF DEMENTIA UTILIZING THE [facility] CARE SPECIALTY PROGRAM. [code = SN TO INSTRUCT CAREGIVER ON MANAGEMENT OF DEMENTIA UTILIZING THE [facility] CARE SPECIALTY PROGRAM.] Future Scheduled Test SKILLED NU RSE FOR O/A AND SKILLED TEACHING OF COPING SKILLS TO MANAGE ANXIETY AND MAINTAIN SAFETY. [code = SKILLED NURSE FOR O/A AND SKILLED TEACHING OF COPING SKILLS TO MANAGE ANXIETY AND MAINTAIN SAFETY.] Future Scheduled Test SKILLED NU RSE TO ASSESS PATIENTS PSYCHOSOCIAL STATUS TO IDENTIFY POTENTIAL ISSUES THAT MAY COMPLICATE THE PROVISION OF THE PLAN OF CARE INCLUDING THE PATIENTS ABILITY TO ACCESS COMMUNITY RESOURCES AND PSYCHOSOCIAL SUPPORT SERVICES. [code = SKILLED NURSE TO ASSESS PATIENTS PSYCHOSOCIAL STATUS TO IDENTIFY POTENTIAL ISSUES THAT MAY COMPLICATE THE PROVISION OF THE PLAN OF CARE INCLUDING THE PATIENTS ABILITY TO ACCESS COMMUNITY RESOURCES AND PSYCHOSOCIAL SUPPORT SERVICES.] Future Scheduled Test SKILLED NU RSE FOR OBSERVATION AND ASSESSMENT TO IDENTIFY CHANGES ASSOCIATED WITH DEMENTIA AND TEACHING RELATED TO SAFETY MEASURES TO PREVENT INJURY, ELOPEMENT RISKS, BEHAVIOR CHANGES, ACTIVITIES, AND ENVIRONMENTAL CHANGES ALL SECONDARY TO IMPAIRED COGNITIVE STATUS. [code = SKILLED NURSE FOR OBSERVATION AND ASSESSMENT TO IDENTIFY CHANGES ASSOCIATED WITH DEMENTIA AND TEACHING RELATED TO SAFETY MEASURES TO PREVENT INJURY, ELOPEMENT RISKS, BEHAVIOR CHANGES, ACTIVITIES, AND ENVIRONMENTAL CHANGES ALL SECONDARY TO IMPAIRED COGNITIVE STATUS.] Future Scheduled Test SKILLED NU RSE TO INSTRUCT ON SAFETY MEASURES TO PREVENT INJURY SECONDARY TO SEIZURE DISORDER/IMPAIRED NEUROLOGICAL STATUS. [code = SKILLED NURSE TO INSTRUCT ON SAFETY MEASURES TO PREVENT INJURY SECONDARY TO SEIZURE DISORDER/IMPAIRED NEUROLOGICAL STATUS.] Future Scheduled Test SKILLED NU RSE FOR O/A OF SELF-CARE DEFICITS AND TO PROVIDE TEACHING RELATED TO SAFE PROVISION OF ADLS. [code = SKILLED NURSE FOR O/A OF SELF-CARE DEFICITS AND TO PROVIDE TEACHING RELATED TO SAFE PROVISION OF ADLS.] Goal Patient Goal - GO OUTSIDE Goal Provider Goal - A PLAN OF CARE WILL BE ESTABLISHED THAT MEETS PATIENT'S CARE HOME NEEDS AND INCLUDES PATIENT GOAL FOR HOME HEALTH. Goal Provider Goal - PATIENT WILL REMAIN SAFE IN THE COMMUNITY AND WILL BE FREE OF DANGER TO SELF AND OTHERS THROUGHOUT THE CERTIFICATION PERIOD. Goal Provider Goal - ALTERED MENTAL/BEHAVIORAL STATUS WILL BE IDENTIFIED PROMPTLY AND INTERVENTION INITIATED QUICKLY TO MINIMIZE ASSOCIATED RISKS THROUGHOUT CERTIFICATION PERIOD. Goal Provider Goal - PATIENT/CAREGIVER WILL VERBALIZE UNDERSTANDING OF EDUCATION PROVIDED ON MEDICATIONS BY THE END OF THE CERTIFICATION PERIOD. Goal Provider Goal - CAREGIVER WILL DEMONSTRATE MANAGEMENT AND UNDERSTANDING OF DEMENTIA A RESULT OF PARTICIPATION IN THE [facility] CARE SPECIALTY PROGRAM. Goal Provider Goal - PATIENT WILL BE ABLE TO PERFORM DAILY FUNCTIONS AND HAVE OPTIMAL IMPROVEMENT IN LEVEL OF ANXIETY THROUGHOUT CERTIFICATION PERIOD. Goal Provider Goal - PSYCHOSOCIAL NEEDS WILL BE IDENTIFIED AND PLAN IMPLEMENTED TO MINIMIZE RISK THROUGHOUT CERTIFICATION PERIOD. Goal Provider Goal - PATIENT/CAREGIVER WILL VERBALIZE /DEMONSTRATE APPROPRIATE ENVIRONMENTAL/SAFETY MODIFICATIONS IN RESPONSE TO BEHAVIOR/COGNITIVE CHANGES ASSOCIATED WITH DEMENTIA DIAGNOSIS THROUGHOUT THE CERTIFICATION PERIOD. Goal Provider Goal - PATIENT/CAREGIVER WILL VERBALIZE/DEMONSTRATE SEIZURE PRECAUTIONS AND CARE OF PATIENT TO PROMOTE SAFETY AND PREVENT INJURY BY THE END OF THE CERTIFICATION PERIOD. Goal Provider Goal - PATIENT/CAREGIVER WILL VERBALIZE/DEMONSTRATE UNDERSTANDING OF SAFE PROVISION OF ADLS BY THE END OF THE CERTIFICATION PERIOD. Encounters Start Date/Time End Date/Time Encounter Type Admission Type Attending [facility] Care Department Encounter ID Discharge Date Discharge Status Discharge Condition Discharge Reason Percent Goals Met 2025-02-11 00:00:00 2025-04-11 00:00:00 [facility]patient [facility] [id number] 40.00
== END 2025-02-13 15:22 | disposition home or self-care (01) ==
LOC: HO.HMCC 14:15
PROVIDERS: PCP Nurse Practitioner Family; Visit Provider Nurse Practitioner Family
DX: F60.5 Obsessive-compulsive personality disorder (principal); G93.1 Anoxic brain damage, not elsewhere classified; F02.818 Dementia in other diseases classified elsewhere, unspecified severity, with other behavioral disturbance

== ENCOUNTER → 2025-02-13 14:14 | Outpatient (BNVA) | payer MEDICARE, SELFPAY | PROVIDERS: PCP Nurse Practitioner Family; Visit Provider Nurse Practitioner Family | DX: F60.5 Obsessive-compulsive personality disorder (principal); G93.1 Anoxic brain damage, not elsewhere classified; F02.818 Dementia in other diseases classified elsewhere, unspecified severity, with other behavioral disturbance | CPT/HCPCS: 96127; 99212 ==

== ENCOUNTER 2025-02-22 11:06 | Inpatient (IN) | payer MEDICARE, SELFPAY ==
--- NOTE | ~2025-02-22 | XR_ITS ---
EXAMINATION: XR WRIST, LEFT CLINICAL INFORMATION: mechanical fall COMPARISON: None available. TECHNIQUE: PA, lateral, and oblique views of the left wrist. FINDINGS: Cystlike geographic lucency is present in the radial half of the lunate. Joint spaces are preserved. There is no abnormal step-off or joint diastases. Ulnar variance is neutral. No fracture line is evident. XR/XR wrist LT min 3V IMPRESSION: Nonspecific cystic like lucency is present in the radial half of the lunate. It has nonaggressive features. Electronically signed by: Rell Fernando MD 03/05/2025 10:42 AM EDT
--- NOTE | ~2025-02-22 | XR_ITS ---
CLINICAL HISTORY: ?aspiration 1 view chest x-ray Comparison: None provided Findings: No consolidation or effusion. Normal size heart. No acute fracture. IMPRESSION: 1. No acute findings. This document has been electronically signed by: Ivy Huang MD on 03/24/2025 03:43:16
[2025-02-22 11:15] VITALS: BP 118/72; BP 136/70; PULSE 60; PULSE 76; RESP 18; TEMP 37; O2SAT 96; O2SAT 98; BMI 44.4
--- NOTE | 2025-02-22 12:16 | ECG_ITS ---
Test Reason : AMS Blood Pressure : */* mmHG Vent. Rate : 54 BPM Atrial Rate : 54 BPM P-R Int : 196 ms QRS Dur : 154 ms QT Int : 518 ms P-R-T Axes : 70 -66 54 degrees QTcB Int : 491 ms Sinus bradycardia Right bundle branch block Left anterior fascicular block Bifascicular block Abnormal ECG When compared with ECG of 20-Jan-2025 18:34, Left anterior fascicular block is now Present Referred By: Jon Bernard Electronically Signed By: REX BLANCHARD
--- NOTE | 2025-02-22 12:32 | ED.GENADULT ---
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 Per the patient's , the patient was in the home walking around with a knife. The patient states that he was trying to open all walk and was not threatening anybody including his . He would like to go back home. He denies any SI or HI. The patient denies any somatic complaints. Of note he had a recent inpatient psychiatric hospitalization with a discharge of 02/08/2025. He was started on clonazepam 0.5 mg during that stay which she continues to take Based on previous notes from Aidee Lucio, the patient has paranoid delusions at baseline and is not oriented to time or event Related Data Home Medications ?Medication ?Instructions ?Recorded ?Confirmed lamotrigine 150 mg tablet 150 mg PO BID 08/21/23 02/23/25 sertraline 50 mg tablet 50 mg PO BEDTIME 08/21/23 02/23/25 atorvastatin 80 mg tablet 80 mg PO BEDTIME 09/01/23 02/23/25 calcium polycarbophil 625 mg 625 mg PO DAILY 01/16/25 02/23/25 tablet (Fiber (calcium polycarbophil)) clonazepam 0.5 mg tablet (Klonopin) 0.5 mg PO TID 02/23/25 02/23/25 olanzapine 15 mg tablet 7.5 mg PO BID 02/23/25 02/23/25 olanzapine 5 mg disintegrating 5 mg PO DAILY PRN psychosis 02/23/25 02/23/25 tablet oxcarbazepine 150 mg tablet 150 mg PO BID 02/23/25 02/23/25 Previous Rx's ?Medication ?Instructions ?Recorded rollator walker with seat and #1 ea 07/08/24 brakes transport wheelchair with footrests #1 ea 07/08/24 clopidogrel 75 mg tablet 75 mg PO DAILY #90 tabs 02/17/25 finasteride 5 mg tablet (Proscar) 5 mg PO DAILY #30 tabs 12/09/24 olanzapine 2.5 mg tablet 2.5 mg PO BID PRN agitation #60 02/07/25 tabs trazodone 100 mg tablet 100 mg PO BEDTIME #30 tabs 02/07/25 aspirin 81 mg chewable tablet 1 tab PO DAILY #90 tabs 02/19/25 cyanocobalamin (vitamin B-12) 1,000 mcg PO DAILY #90 tabs 02/19/25 1,000 mcg tablet thiamine HCl (vitamin B1) 100 mg 100 mg PO DAILY #90 tabs 02/19/25 tablet Allergies Allergy/AdvReac Type Severity Reaction Status Date / Time lisinopril Allergy Mild Unknown Verified 02/22/25 11:20 codeine Allergy Unknown Verified 02/22/25 11:20 Review of Systems Constitutional: Constitutional: Denies body ache(s), Denies chills and Denies fever(s) Eyes: Eyes: Denies blurry vision ENT: Denies dizziness and Denies dry mouth Cardiovascular: Cardiovascular: Denies chest pain and Denies dyspnea on exertion Respiratory: Respiratory: Denies cough and Denies dyspnea on exertion Gastrointestinal: Gastrointestinal: Denies abdominal pain Musculoskeletal: Musculoskeletal: Denies back pain and Denies arthralgias Integumentary/Breasts: Skin/Breast: Denies rash Neurologic: Denies dizziness Psychiatric: Psychiatric: Denies anxiety, Denies depression, Denies visual hallucinations, Denies homicidal ideation and Denies suicidal ideation PMFSH Past Medical History Medical History (Updated 02/26/25 @ 09:21 by JOE Cramer) Primary degenerative dementia Dementia Complex partial seizures Anxiety Seizure disorder Hypertension CAD (coronary artery disease) BPH loc w urin obs/LUTS Contusion of left chest wall Emphysema of lung Neurogenic bladder Prostate nodule Ataxia Anoxic brain injury Epilepsy Compulsive behavior disorder Cardiac arrest Surgical History No pertinent past surgical history Social History Social History Household Members: Spouse and Children Housing: House Do you presently have visiting nurse or other home services: No Alcohol intake: never Comment: 1:1 Patient Tobacco Use Status: Former Tobacco user Smoked in Last 30 Days: Yes e-Cigarette/Vaping Use: Never Used Substance Use Type: Marijuana Currently Displaying Signs/Symptoms of Drug Intoxication Withdrawal: No Advance Directives: Yes Advance Directives on File: Yes Advance Directives Date on File: 07/04/24 Do you have thoughts of harming others: None Do you have a plan to hurt others: No Plan Recently lost weight without trying: No Nutrition Risks: No Nutritional Risk Poor oral hygiene: Yes service: No Current occupational status: retired Sexual orientation: Straight/Heterosexual Cognitive needs: No Hearing needs: No Vision needs: No Physical Exam ED Vital Signs: Vital Signs - 24 hr 02/25/25 13:42 02/25/25 15:47 02/25/25 20:18 Temperature 97.8 F 97 F 97.7 F Pulse Rate 70 67 66 Respiratory Rate 18 12 12 Blood Pressure 129/51 L 103/64 117/79 Pulse Oximetry 94 97 98 Oxygen Delivery Method Room Air Room Air Room Air 02/26/25 00:39 02/26/25 06:00 Temperature 97.6 F Pulse Rate 58 Respiratory Rate 18 17 Blood Pressure 102/62 Pulse Oximetry 95 Oxygen Delivery Method Room Air BMI result Body Mass Index 44.4 Const General: healthy appearing, comfortable, no acute distress, alert and awake Nutritional Appearance: well nourished Orientation/consciousness: oriented to person, No oriented to place and No oriented to time HENMT Head: Yes normocephalic and Yes atraumatic Eyes Eyelids: Yes eyelids normal Conjunctivae: conjunctivae normal Sclerae: sclerae normal Corneas: corneas normal Pupils: Equal, round and reactive pupils present EOM: EOMs intact bilaterally Neck Neck: Yes full ROM Resp Effort & Inspection: normal respiratory effort, able to speak in complete sentences and not labored Cardio Rate: regular rate Rhythm: regular rhythm GI Inspection: No distended Palpation (GI): Soft to palpation, not firm, nontender, no guarding and not rigid Skin General skin exam: elasticity normal Neuro General: oriented to person, No oriented to place and No oriented to time Cranial nerves: Yes CN's II-XII intact bilaterally, Yes Equal, round and reactive pupils present and Yes Bilaterally intact EOM present Extrem Other: Moving all extremities well without any obvious deformities Course Reevaluation(s) Reevaluation #1: Patient becoming increasingly agitated. Use becoming more and more difficult to redirect. We will attempt Zyprexa 20 mg ODT Time: 15:48 Reevaluation #2: Time: 10:50 Date: 02/23/25 Provider: Moshe Love MD Patient in physician observation for psychiatric evaluation.? No acute events reported overnight. No current complaints. VS stable.? Patient is in bed search status/pending CARE team evaluation. Will continue to monitor. Seen by [facility] of [facility] [place] Time: 14:11 Reevaluation #3: 02/24/25 14:11 ADAM Benton: Physician observation continued. Notified by nursing that no code status entered into orders. Discussed code status with patient's , Phyllis, via telephone as she is his healthcare proxy. Conversation witnessed by Kayla Anderson APRN, would like patient to be DNR/DNI. MOLST form completed and order entered. CM following. Additional Reevaluation(s): Time: 16:56 Date: 02/25/25 Provider: JOE Soto Patient in physician observation for case management needs. Awaiting case management disposition. We will continue to monitor. 02/26/2025 0916 Patsy Dixon PA-C ---> Contacted by geriatric psychiatry admission team asking for the patient's UTI to be treated. There is no culture grown but given the WBCs, will initiate treatment. Plan is for psychiatric admission. Medications Administered Generic Name Dose Route Start Last Admin Trade Name Freq PRN Reason Stop Dose Admin Aspirin 81 mg 02/23/25 11:00 02/27/25 12:45 Aspirin 81 Mg Tab.Chew PO 81 mg DAILY HAIM Administration Atorvastatin Calcium 80 mg 02/23/25 21:00 02/27/25 22:09 Atorvastatin Calcium 80 Mg Tablet PO 80 mg BEDTIME HAIM Administration Calcium Polycarbophil 1 tab 02/24/25 09:00 02/27/25 12:20 Calcium Polycarbophil Tablet PO 1 tab DAILY HAIM Administration Cefuroxime Axetil 500 mg 02/26/25 09:00 02/27/25 22:09 Cefuroxime Axetil 500 Mg Tablet PO 03/05/25 08:59 500 mg BID HAIM Administration Clopidogrel Bisulfate 75 mg 02/23/25 11:00 02/27/25 12:20 Clopidogrel Bisulfate 75 Mg Tablet PO 75 mg DAILY HAIM Administration Cyanocobalamin 1,000 mcg 02/24/25 09:00 02/27/25 12:26 Cyanocobalamin (Vitamin B-12) 1,000 Mcg Tablet PO 1,000 mcg DAILY HAIM Administration Finasteride 5 mg 02/24/25 09:00 02/27/25 12:26 Finasteride 5 Mg Tablet PO 5 mg DAILY HAIM Administration Hydroxyzine HCl 25 mg 02/26/25 18:10 02/28/25 00:50 Hydroxyzine Hcl 25 Mg Tablet PO 25 mg Q6H PRN Administration mild anxiety Lamotrigine 150 mg 02/23/25 11:00 02/27/25 22:10 Lamotrigine 25 Mg Tablet PO 150 mg BID HAIM Administration Olanzapine 5 mg 02/22/25 14:50 02/28/25 00:49 Olanzapine Odt 10 Mg Tab.Rapdis TRANSLINGU 5 mg Q6H PRN Administration agitation or psychosis Olanzapine 7.5 mg 02/24/25 21:00 02/27/25 22:09 Olanzapine 5 Mg Tablet PO 7.5 mg BID HAIM Administration Oxcarbazepine 150 mg 02/23/25 11:00 02/27/25 22:09 Oxcarbazepine 150 Mg Tablet PO 150 mg BID HAIM Administration Sertraline HCl 50 mg 02/23/25 21:00 02/27/25 22:08 Sertraline Hcl 50 Mg Tablet PO 50 mg BEDTIME HAIM Administration Thiamine HCl 100 mg 02/24/25 09:00 02/27/25 12:20 Thiamine Hcl 100 Mg Tablet PO 100 mg DAILY HAIM Administration Trazodone HCl 100 mg 02/22/25 21:00 02/27/25 22:08 Trazodone Hcl 100 Mg Tablet PO 100 mg BEDTIME HAIM Administration Trazodone HCl 50 mg 02/26/25 18:10 02/28/25 00:50 Trazodone Hcl 50 Mg Tablet PO 50 mg BEDTIME [id number] PRN Administration Insomnia Discontinued Medications Generic Name Dose Route Start Last Admin Trade Name Freq PRN Reason Stop Dose Admin Clonazepam 0.5 mg 02/22/25 21:00 02/27/25 12:25 Clonazepam 0.5 Mg Tablet PO 0.5 mg BID HAIM Administration Clonazepam 0.5 mg 02/22/25 14:50 02/27/25 00:18 Clonazepam 0.5 Mg Tablet PO 0.5 mg BID PRN Administration anxiety Midazolam HCl 5 mg 02/26/25 15:22 02/26/25 15:29 Midazolam Hcl 5 Mg/Ml Vial IM 02/26/25 15:23 5 mg ONCE ONE Administration Olanzapine 7.5 mg 02/22/25 21:00 02/22/25 20:30 Olanzapine Odt 10 Mg Tab.Rapdis TRANSLINGU 7.5 mg BID HAIM Administration Olanzapine 20 mg 02/22/25 15:44 02/22/25 15:56 Olanzapine Odt 10 Mg Tab.Rapdis TRANSLINGU 02/22/25 15:45 20 mg ONCE ONE Administration Olanzapine 7.5 mg 02/23/25 09:00 02/24/25 10:16 Olanzapine 7.5 Mg Tablet PO Not Given BID HAIM Medical Decision Making Medical Decision Making MDM Narrative: 69-year-old male with past medical history as above presents for evaluation of reported any increased agitation. During my evaluation he is calm and cooperative. Based on previous notes it does seem that he is at his psychiatric baseline. He is answering questions appropriately. He denies any depression or suicidal ideation, denies any homicidal ideation. Plan for medical clearance and care team evaluation. He had a CT scan of his brain on January 08, 2025 did not show any acute intracranial abnormality. The patient does not appear to have any mental status change from his Paxlovid, no focal neurologic deficits and therefore defer additional CT imaging at this time. Differential Diagnosis Differential Diagnoses: The differential diagnosis associated with the presentation includes Agitation Parkinsonism Alzheimer's dementia Psychosis Delirium Admission/Observation Consideration of admission/observation: Escalation of care including admission/observation considered Lab Data 02/22/25 12:44 02/27/25 07:12 Labs: Lab Results 02/22/25 02/22/25 Range/Units 12:44 14:05 WBC 6.0 (4.8-10.8) X10*3/uL RBC 3.38 L D (4.60-5.80) X10*6/uL Hgb 10.7 L D (14.0-18.0) g/dl Hct 31.6 L (42.0-52.0) % MCV 93.5 (80.0-98.0) fL MCH 31.7 (27.0-33.0) pg MCHC 33.9 (31.0-36.0) g/dl RDW 17.0 H (11.0-16.0) % Plt Count 311 D (160-400) X10*3/uL MPV 9.1 L (9.4-12.4) fL Immature Gran % (Auto) 0.2 (0.0-0.4) % Neut % (Auto) 55.7 (45-73) % Lymph % (Auto) 31.6 (20-40) % [place] % (Auto) 10.5 (2-11) % Eos % (Auto) 1.7 (0-4) % Baso % (Auto) 0.3 (0-2) % Lymph # (Auto) 1.9 (1.2-4.9) X10*3/uL [place] # (Auto) 0.6 (0.1-1.2) X10*3/uL Eos # (Auto) 0.1 (0.0-0.4) X10*3/uL Baso # (Auto) 0.0 (0.0-0.2) X10*3/uL Abs Immat Gran (auto) 0.01 (0.00-0.03) X10*3/uL Absolute Neuts (auto) 3.3 (2.0-8.3) x10*3/uL Absolute Nucleated RBC 0.000 (0.0-0.012) X10*3/uL Nucleated RBC % (auto) 0.0 (0.0-0.2) /100WBC Sodium 144 (135-145) mmol/L Potassium 4.1 (3.3-5.1) mmol/L Chloride 109 H (96-108) mmol/L Carbon Dioxide 27 (22-29) mmol/L Anion Gap 12 (12-20) BUN 10 (9-16) mg/dL Creatinine 1.13 (0.5-1.4) mg/dL Estim Creat Clear Calc 97.8 Estimated GFR > 60 Random Glucose 93 (60-115) mg/dL Calcium 8.5 (8.4-10.2) mg/dL Total Bilirubin 0.4 (0.0-1.0) mg/dL AST 29 (5-37) U/L ALT 16 (0-40) U/L Alkaline Phosphatase 98 (39-117) U/L Total Protein 6.3 L (6.5-8.0) g/dL Albumin 4.1 (3.5-5.0) g/dL Urine Color Yellow Urine Appearance Clear Urine pH 6.5 (5.0-9.0) Ur Specific [place] 1.010 (1.005-1.025) Urine Protein Negative (Neg-Trace) mg/dL Urine Glucose (UA) Negative (Negative) mg/dL Urine Ketones Negative (Negative) mg/dL Urine Blood Negative (Negative) Urine Nitrite Negative (Negative) Ur Leukocyte Esterase Moderate (2+) H (Negative) Urine RBC 0-2 (0-2) /HPF Urine WBC >50 H (0-5) /HPF Ur Squamous Epith Cells 0-2 (0-2) /HPF Urine Bacteria None Seen (None Seen) Hyaline Casts 0-2 (0-2) /LPF Urine Opiates Screen Not Detected (Not Detect) Ur Buprenorphine Scrn Not Detected (Not Detect) ng/mL Ur Oxycodone Screen Not Detected (Not Detect) ng/mL Urine Methadone Screen Not Detected (Not Detect) ng/mL Urine Fentanyl Screen Not Detected (Not Detect) Ur Barbiturates Screen Not Detected (Not Detect) Ur Phencyclidine Scrn Not Detected (Not Detect) Ur Amphetamines Screen Not Detected (Not Detect) U Benzodiazepines Scrn POSITIVE H (Not Detect) Urine Cocaine Screen Not Detected (Not Detect) U Marijuana (THC) Screen POSITIVE H (Not Detect) Discharge Plan Discharge Clinical Impression: Acute UTI, Agitation Patient Disposition: Admitted As Inpatient Discharge Date/Time: 02/26/25 20:33
[2025-02-22 12:46] VITALS: BP 137/86; PULSE 65; RESP 16; O2SAT 98
[2025-02-22 12:51] LABS: MANUAL DIFF FLAG NO
[2025-02-22 12:53] LABS: Hematocrit 31.6 % (42.0-52.0); Hemoglobin 10.7 g/dl (14.0-18.0); Imm Gran Abs Auto 0.01 X10*3/uL (0.00-0.03); Imm Gran Pct Auto 0.2 % (0.0-0.4); Lymphocytes Absolute Auto 1.9 X10*3/uL (1.2-4.9); Mean Corpuscular HGB Conc 33.9 g/dl (31.0-36.0); Mean Corpuscular Hemoglobin 31.7 pg (27.0-33.0); Mean Corpuscular Volume 93.5 fL (80.0-98.0); NRBC Abs Auto 0.000 X10*3/uL (0.0-0.012); NRBC Pct Auto 0.0 /100WBC (0.0-0.2); Platelet Count 311 X10*3/uL (160-400); Red Blood Count 3.38 X10*6/uL (4.60-5.80); White Blood Count 6.0 X10*3/uL (4.8-10.8)
[2025-02-22 13:09] LABS: Alanine Aminotransferase 16 U/L (0-40); Albumin Level 4.1 g/dL (3.5-5.0); Alkaline Phosphatase 98 U/L (39-117); Anion Gap 12 (12-20); Aspartate Amino Transferase 29 U/L (5-37); Blood Urea Nitrogen 10 mg/dL (9-16); Calcium 8.5 mg/dL (8.4-10.2); Carbon Dioxide 27 mmol/L (22-29); Chloride 109 mmol/L (96-108); Creatinine Clr Calc Pharmacy 97.8; Estimated Glomerular Filt Rate > 60; Potassium 4.1 mmol/L (3.3-5.1); Sodium 144 mmol/L (135-145); Total Protein 6.3 g/dL (6.5-8.0)
--- NOTE | 2025-02-22 13:31 | P.CNPS_ITS ---
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 Per the patient's , the patient was in the home walking around with a knife. The patient states that he was trying to open all walk and was not threatening anybody including his . He would like to go back home. He denies any SI or HI. The patient denies any somatic complaints. Of note he had a recent inpatient psychiatric hospitalization with a discharge of 02/08/2025. Geriatric Inpatient Psychiatry Discharge Summary 02/08/25: 69 year-old male with hx of dementia s/s to anoxic brain injury/vascular changes to his brain. He is known to this senior underwriter through 3 prior assessments, last one last week on 01/08/25. At baseline, his memory/cognition is very impaired and he is not oriented to month, year nor situation. This has been the case for more than one year. This is not an acute change. Spoke with his , Phyllis who reports she is having harder time redirecting him when he attempts to get out of the home. He also has periods of paranoid delusions and declining medications. hopes to still care for him at their home. This senior underwriter has talked with in the past informing of need for 24/ supervision due to severe memory/cognitive changes. On the unit, pt presents as pleasant. He is not oriented to situation, month, year nor place. He can briefly hold on the information that he is in the hospital. He is noted to be confabulating as to what is going on. He reports he needs to go to work and hoping we can let him go soon. He denies any physical concerns. No overt signs of psychosis. Past Psychiatric History: Inpt: none prior OP: psychotropic medications managed by neurologist Dr. Hernandez Hospital Course On the unit, pt was admitted on a CV signed by HCP. Pt is not oriented to place, situation, nor month. 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 There are other times when he does present as very paranoid and thinks there is someone trying to hurt him. When he is paranoid which last a day, he can become very agitated and sometimes combative. He also has underlying movement disorder (parkinsonism) with resting pin rolling tremor bilat, shuffling gait, retropulsion which makes treatment with antipsychotic medications somewhat challenging in that he is more likely to experience exacerbation of EPS.He was also noted to have what seemed to be myoclonic movements upper extremities. These episodes were not daily but about every other day or so. With this in mind, he was switch from seroquel to olanzapine, as olanzapine may be better antipsychotic with anticholinergic properties. He tolerated increase in olanzapine to 5mg po BID. He was also started on clonazepam 0.5mg po BID. He was continued on lamictal which he is on for seizures. he was kept on a one to one due to unsteady gait. Most of the days he presented with euthymic mood albeit his lack of orientation. With exeption of some sporadic days that he was paranoid. He did receive IM medication for agitation during this episodes consisting on low dose of olanzapine 5mg IM and Diazepam 5mg IM with good effect. He is sensitive to the effects of medications thus caution needed when these are titrated. We had meeting with to go over medication changes, cognitive/memory impairments.... [facility] [Outside] - 3-5 Days Referral Note: [facility] will start medication management for Will after discharge. They will start either monday or monday and they will contact you before hand to set up specific times and dates. If you do not hear from them after discharges please call the [facility] 5 Days Referral Note: [facility] will started services when he is discharged. I have left a message with her [facility] Parth and his information will be sent to her after discharge. Please reach out to Lynne by calling [phone] Ext. [phone]. If they have not reached out to you 3-5 days after discharge please call her at the number provided.Avery Price APRN [Registered Nurse, Psychology] - 02/21/25 10:00 am Referral Note: An appointment for Avery Price had been made for 02/21 at 10:00am. When doing into the appointment please arrive 10 minutes early for intake paperwork and bring in his insurance cards. If you need to reschedule or cancel the appointment please call the number listed.Leon Godinez, MANAGER PROGRAM MANAGEMENT-BC [Primary Care Provider, Internal Medicine] - 3-5 Days Referral Note: Dr. Feng office will be reaching out to set up an appointment after discharge. If you have not received a call from them 3-5 days after discharge please call the office at the number provided. Today: Patient presentation consistent with the above documentation - baseline significant cognitive impairment. Is pleasant in the ED. Believes that it is the 06 of July then corrects himself to maybe August 1919. know where he is in [facility]. States his became concerned because he had a knife. Was unable to give clear reasons for same. Reported wanting to go home. Denied feeling depressed suicidal, homicidal etc.. Spoke with family at [phone] along with patient's sister on speaker phone. Overall since discharge on 02/08/2025, patient has become increasingly paranoid, delusional and hallucinating there are people in the house trying to hurt him or sometimes there are people there that are not dangerous. Yesterday he put knives in individual rooms so he could have easy access protect his family if needed. Today believed he had to go to work at a job he last worked at 25 years ago. Very distressed and upset he could not leave the house. gave him scheduled medications plus as needed medications. Patient slept for about 1 hour, but then woke up and was more agitated than he was before. Overall has been feeling increasingly unsafe regarding his mental state and behavior at home and would like him admitted for stabilization. She was very clear he has not been aggressive towards her. Also no suicidal concerns. He has been taking medications. Saw outpatient prescriber yesterday for the 1st time and olanzapine was increased to 7.5 mg twice daily and 2.5 mg as needed. The also consider starting Tegretol. is clear she would like patient admitted to the geriatric psychiatry unit and not a general adult psychiatry unit. Past Psychiatric History: Inpt: Discharge from Geriatric Psychiatry 02/08/2025 with severe cognitive impairment, intermittent agitation, discharge medications included olanzapine 5 mg twice daily and 2.5 mg as needed, Klonopin 0.5 mg twice daily, trazodone 100 mg and lamotrigine for seizure disorder Past medication trials: jarvis [facility] Medical History (Updated 02/16/25 @ 00:00 by Leo Morales) Dementia Complex partial seizures Anxiety Seizure disorder Hypertension CAD (coronary artery disease) BPH loc w urin obs/LUTS Contusion of left chest wall Emphysema of lung Neurogenic bladder Prostate nodule Ataxia Anoxic brain injury Epilepsy Compulsive behavior disorder Cardiac arrest Surgical History No pertinent past surgical history Family History: no prior psych hx as per chart Social History: Pt lives with . Trauma History: None reported Diagnostics Vital Signs (24Hr): Vital Signs - 24 hr 02/22/25 11:15 02/22/25 12:46 Temperature 98.6 F Pulse Rate 60 65 Respiratory Rate 18 16 Blood Pressure 118/72 137/86 Pulse Oximetry 96 98 Oxygen Delivery Method Room Air Room Air BMI result Body Mass Index 44.4 Labs 02/22/25 12:44 02/22/25 12:44 Labs: Laboratory Results - last 48 hr 02/22/25 12:44 WBC 6.0 RBC 3.38 L D Hgb 10.7 L D Hct 31.6 L MCV 93.5 MCH 31.7 MCHC 33.9 RDW 17.0 H Plt Count 311 D MPV 9.1 L Immature Gran % (Auto) 0.2 Neut % (Auto) 55.7 Lymph % (Auto) 31.6 [place] % (Auto) 10.5 Eos % (Auto) 1.7 Baso % (Auto) 0.3 Lymph # (Auto) 1.9 [place] # (Auto) 0.6 Eos # (Auto) 0.1 Baso # (Auto) 0.0 Abs Immat Gran (auto) 0.01 Absolute Neuts (auto) 3.3 Absolute Nucleated RBC 0.000 Nucleated RBC % (auto) 0.0 Sodium 144 Potassium 4.1 Chloride 109 H Carbon Dioxide 27 Anion Gap 12 BUN 10 Creatinine 1.13 Estim Creat Clear Calc 97.8 Estimated GFR > 60 Random Glucose 93 Calcium 8.5 Total Bilirubin 0.4 AST 29 ALT 16 Alkaline Phosphatase 98 Total Protein 6.3 L Albumin 4.1 Mental Status Exam Mental Status Exam Narrative: in the emergency room wearing hospital clothing. Fair self-care. Very pleasant. Overall organized but poor concentration and obvious short-term memory impairment. c/w baseline significant cognitive impairment. Believes that it is (Monday) the 06 of July then corrects himself to maybe August 1921. Know where he is in [facility]. Denies depression, SI or HI. Reports currently feeling safe. Denies hallucinations. Collateral consistent with visual hallucinations, auditory hallucinations and paranoia. Insight and judgment poor Medications Allergies Allergies Allergy/AdvReac Type Severity Reaction Status Date / Time lisinopril Allergy Mild Unknown Verified 02/22/25 11:20 codeine Allergy Unknown Verified 02/22/25 11:20 Assessment & Plan Assessment & Plan (1) Major neurocognitive disorder due to another medical condition with behavioral disturbance: Status: Acute Code(s): F02.818 - Dementia in other diseases classified elsewhere, unspecified severity, with other behavioral disturbance (2) Anoxic brain injury: Status: Acute Code(s): G93.1 - Anoxic brain damage, not elsewhere classified (3) Seizures: Status: Acute Code(s): R56.9 - Unspecified convulsions Plan 69-year-old male with established near degenerative cognitive impairment recently discharged from Geriatric Psychiatry on 02/08/2025 to home. Since discharge has become increasingly paranoid, evidence of auditory and visual hallucinations. Medication management has not been able to help with presentation. Started to put knives around the house due to his paranoia and fear. Increasingly agitated and distressed and not being able to leave the house. not feeling safe at home with patient in current condition. Given same inpatient geriatric bed search appropriate as clearly unable to care for self and potential danger to others secondary to dementia and psychosis. Will continue medications as adjusted yesterday olanzapine 7.5 mg twice daily and 2.5 mg as needed, Klonopin 0.5 mg twice daily, trazodone 100 mg at bedtime, continue lamotrigine for seizure disorder. Family very care they want patient on a geriatric psychiatry unit and not a general adult psychiatry unit. Total time managing care of this patient today ____ minutes. Guardian/Caregiver educated on: therapeutic strategies Informed Consent: does not understand
[2025-02-22 14:02] VITALS: BP 130/82; PULSE 52; RESP 16; TEMP 36.6; O2SAT 98
[2025-02-22 14:15] LABS: Appearance Urine Clear; Glucose Urine UA Negative (Negative); PH 6.5 (5.0-9.0); Specific Gravity - Urine 1.010 (1.005-1.025); UMIC TRIGGER UA YES
[2025-02-22 14:25] LABS: Cannabinoid Screen Urine POSITIVE (Not Detect)
[2025-02-22] MEDS: OLANZapine ODT 10 MG TAB.RAPDIS 20 MG TRANSLINGU (15:56)
--- NOTE | 2025-02-22 16:24 | PC.NURSE ---
Pt increasingly agitated, exit seeking 1:1 pt observer at bedside, Zyprexa 20mg PO
[2025-02-22] MEDS: OLANZapine ODT 10 MG TAB.RAPDIS 5 MG TRANSLINGU (19:10)
[2025-02-22 20:05] VITALS: RESP 16
[2025-02-22 20:29] VITALS: BP 141/77; PULSE 54; RESP 16; TEMP 36.5; O2SAT 98
[2025-02-22] MEDS: OLANZapine ODT 10 MG TAB.RAPDIS 7.5 MG TRANSLINGU (20:30)
[2025-02-22 22:34] VITALS: BP 145/86; PULSE 56; RESP 16; O2SAT 97
--- NOTE | 2025-02-22 23:41 | PC.NURSE ---
pt not impulsive since around 2300. numerous episodes of attempting to get OOB and activating bed alarm. no fall. assisted with urinal, voided about 500 mL CYU. in bed at this time, bed alarm on, call ross in reach
[2025-02-23] VITALS (8 sets, daily range): BP systolic 125–153; BP diastolic 66–87; PULSE 58–68; RESP 14–20; TEMP 36.5–36.9; O2SAT 98–100
--- NOTE | 2025-02-23 02:18 | MHC.EDTECH ---
Gave pt a sandwich and some milk
--- NOTE | 2025-02-23 02:54 | PC.NURSE ---
ambulated with moderate assist all the way to bathroom. more unsteady on way back requiring heavy assist. now back in bed with alarm on and call ross in reach. able to demonstrate call ross use
--- NOTE | 2025-02-23 07:32 | PC.NURSE ---
Assumed care of patient. A+Ox1 to person, hx TBI. Pt calm, confused but redirectable. RR even and unlabored, denies CP or SOB. Pt ambulated with staff a short distance, takes small steps and a bit unsteady on his feet. Pt watching tv.
--- NOTE | 2025-02-23 07:39 | PC.NURSE ---
called pharmacy to do the pt's medrec
--- NOTE | 2025-02-23 07:56 | PC.NURSE ---
After multiple attempts to climb out of bed over a few minutes, needed constant redirection. Pt monitoring camera placed in room and sheet faxed to camera staff.
[2025-02-23] MEDS: OLANZapine 7.5 MG TABLET PO ×2 (08:20→20:14)
--- NOTE | 2025-02-23 09:37 | PC.NURSE ---
pt quite restless multiple attempts of getting out of bed
--- NOTE | 2025-02-23 10:24 | PHA.MEDREC ---
Pharmacy Consult ? Medication Reconciliation Pharmacy has completed the medication reconciliation. Unable to contact patient's Phyllis left message. Utilized recent claim history as well as patient discharge packet from 01/21/25. During last visit, metoprolol, melatonin, and quetiapine was discontinued.
--- NOTE | 2025-02-23 10:51 | MHC.CARE ---
Pt was re-evaluated by CARE team today and continues to meet the criteria for SAMEER IPLOC. Section 12a in chart. ED provider informed.
[2025-02-23] MEDS: OLANZapine ODT 10 MG TAB.RAPDIS 5 MG TRANSLINGU (16:43)
[2025-02-24 06:00] VITALS: BP 155/71; PULSE 69; RESP 20; TEMP 36.7; O2SAT 98
--- NOTE | 2025-02-24 07:41 | PC.NURSE ---
Pt alert to self, disoriented to place, situation and time. At start of shift he persisted in attempting to leave to smoke a joint . He was easy to moderate to redirect but was unable to sustain the redirection. He had visual hallucinations, confabulations stating he owned this building. Provider aware and security called to attempt redirection with little effect. Pt did take all his meds whole in pudding. He was noted to pocket meds but did eventually swallow them with more pudding/drink. 1:1 supervision maintained. Camera maintained for safety. Scattered old bruising noted especially to buttocks/hips and inner thighs. Care ongoing...
[2025-02-24] MEDS: calcium polycarbophiL TABLET 1 TAB PO (10:06)
--- NOTE | 2025-02-24 10:17 | PC.NURSE ---
Pt had 7.5 mg zyprexa ordered for 0900 02/24. This med was not available in [facility]is as ordered bc dose was 7.5mg. When order was updated so it could be pulled from [employer], the 0900 time order was removed and was not scheduled until 2099. Current time after 1000 and zyprexa was not scheduled. Unscheduled dose of zyprexa given at this time bc pt is supposed to have it, but due to pharmacy assistance with [employer], the 0900 dose was cancelled.
[2025-02-24 14:00] VITALS: BP 111/69; PULSE 66; RESP 18; TEMP 36.6; O2SAT 99
--- NOTE | 2025-02-24 15:19 | PC.NURSE ---
pt sleeping at this time, took meds well this morning - large ones crushed and smaller ones he can take whole in pudding. pt is alert to self.
--- NOTE | 2025-02-24 16:05 | MHC.EDTECH ---
Patient is comfortably sleeping at this moment with 1:1 sitter and video camera at bedside.
[2025-02-24 22:00] VITALS: BP 126/77; PULSE 77; RESP 16; TEMP 37.1; O2SAT 97
[2025-02-25 05:34] VITALS: BP 102/65; PULSE 63; RESP 18; TEMP 36.2; O2SAT 97
--- NOTE | 2025-02-25 07:04 | PC.NURSE ---
Pt slept most of the night with one episode of waking up and stating he felt tired. Pt oriented only to self. Remained calm during the small time that he was awake. Had a small conversation where he discussed past work trades, his , and having a 28 y/o and a 2 y/o child. Did not show any interest in eating or taking night meds. Pt was encouraged to eat and hand fed by the tech. Night meds were crushed and dissolved in apple juice in order for pt to take them as pt states he does not take any pills. Pt then fell back to sleep for the rest of the night. 1:1 sitter remained at bedside. Bed alarm and video monitor in place for safety. Monitoring is ongoing.
[2025-02-25] MEDS: calcium polycarbophiL TABLET 1 TAB PO (07:50)
--- NOTE | 2025-02-25 10:33 | PC.NURSE ---
Assumed care of pt approx 0700, resting in bed with eyes closed and resp even/unlabored. No apparent s/s of distress. Pt woken for breakfast and required assist x 1 with feeding. Alert to self only, occasionally attempting to get OOB stating I have to get home . Pt is able to be redirected by staff at this time. Took medications crushed in applesauce. Pt is able to void in urinal but occasionally is incontinent. Hygiene care and linen change provided. Plan of care ongoing..
[2025-02-25 13:42] VITALS: BP 129/51; PULSE 70; RESP 18; TEMP 36.6; O2SAT 94
[2025-02-25] MEDS: OLANZapine ODT 10 MG TAB.RAPDIS 5 MG TRANSLINGU ×2 (15:11→23:39)
--- NOTE | 2025-02-25 15:18 | PC.NURSE ---
Pt attempting to get up and leave several times, states my father is waiting for me outside . Attempts made to redirect pt, snack offered and pt agreeable at this time.
[2025-02-25 15:47] VITALS: BP 103/64; PULSE 67; RESP 12; TEMP 36.1; O2SAT 97
[2025-02-25 20:18] VITALS: BP 117/79; PULSE 66; RESP 12; TEMP 36.5; O2SAT 98
[2025-02-26 00:39] VITALS: RESP 18
[2025-02-26 06:00] VITALS: BP 102/62; PULSE 58; RESP 17; TEMP 36.4; O2SAT 95
--- NOTE | 2025-02-26 06:44 | PC.NURSE ---
02/25/25 2320 Pt with increasing agitation and delusional thoughts as patient believes he is suppose to be picked up by friends to go to the game . Pt does not believe he needs to be in hosptia and why is he forced to be here Pt attempting to hit 1:1 male observer and swearing at him. Patient reporting he has not eaten all day which was untrue as RN had provided him with multiple snack from [phone]. Patient offered a sandwich and chip which patient did accept from female RN but refusing from male 1:! observer. Masood DIAZ notified of escalating behavior and in discussing patient decision was made to have female 1:1 observer be present to observe patient and prn Zyprexa 5mg ODT be provided to patient. Approximately 45 minutes later patient became calmer, polite and was agreeable to stay the night, get sleep and discuss leaving after breakfast in morning. Patient repositioned, purewick changed and warm blankets provided per patient request. In providing ongoing assessment during the night, patient appeared comfortable sleeping. RR even and nonlabored, O2 sat 96% on RA and HR 70's
[2025-02-26] MEDS: calcium polycarbophiL TABLET 1 TAB PO (09:27)
[2025-02-26 13:44] VITALS: BP 103/67; PULSE 72; RESP 16; TEMP 36.9; O2SAT 95
[2025-02-26] MEDS: OLANZapine ODT 10 MG TAB.RAPDIS 5 MG TRANSLINGU (14:19)
--- NOTE | 2025-02-26 15:00 | PC.NURSE ---
Addendum entered by Ashely Rosenthal RN 02/26/25 17:43: IM given after PO zyprexa was ineffective when given at onset of agitation Original Note: Pt heard an overhead page for a car that needed to be moved in the parking lot. pt became very agitated, convinced that his car was about to be towed, getting very upset with staff when we attempted to redirect. threatening to hit staff and making fists. yeling out and attempting to get out of bed. security to assist. order for IM obtained after spending approx 45 minutes with 3 staff members attempting to de-escalate pt. IM given as ordered.
[2025-02-26 20:44] VITALS: BP 118/71; PULSE 69; RESP 18; TEMP 37.1; O2SAT 98
[2025-02-26 20:45] VITALS: BMI 19.3
[2025-02-27] MEDS: OLANZapine ODT 10 MG TAB.RAPDIS 5 MG TRANSLINGU (00:19)
--- NOTE | 2025-02-27 02:43 | PC.NURSE ---
Admission Note Will Nam , a 69-year-old man, was presented to [facility] ED via ambulance from his home for increased aggression, paranoia, and decompensation resulting in refusing to enter his house and knocking neighbour?s door. The patient has an extensive medical and psychiatric histories including? HTN, CAD (coronary artery disease), BPH, Contusion of left chest wall, Emphysema of lung, Neurogenic bladder, Prostate nodule, Ataxia, Anoxic brain injury,? Epilepsy, Seizure disorder, Unspecified Dementia, Anxiety, Compulsive behavior disorder, and Major Neurocognitive disorder with behavioral disturbances. Will was transferred in wheelchair to S#1 from the [facility] at 2235, 02/26/25, on Section 12-B with an admitting diagnosis of? unspecified dementia. Will?s code status is DNR/DNI, MOLST in the chart. He is alert and oriented to self only. Behaviour unpredictable with intermittent explosive behavior. Skin assessed no issue observed/reported. MAR active. The patient takes his meds crushed with a preferred vehicle of [employer], at times requiring prompting. The patient is bed and chair bound at this time, but stand-pivot for transfer. He is on 1:1 for safety check for high fall risk. He is dependent on ADL care.? Incontinent of bowel and bladder at this time. Labs are unremarkable. UA positive, currently treated with Ceftin 500 mg BID,? Utox positive for THC and Benzos. EKG abnormal/right bundle brunch block. Will due to lack of comprehension was unable to sign his treatment plan, safety tool, and release paper. Contraband searched.?
[2025-02-27 07:50] LABS: Alanine Aminotransferase 14 U/L (0-40); Albumin Level 4.0 g/dL (3.5-5.0); Alkaline Phosphatase 95 U/L (39-117); Anion Gap 11 (12-20); Aspartate Amino Transferase 32 U/L (5-37); Blood Urea Nitrogen 17 mg/dL (9-16); Calcium 8.5 mg/dL (8.4-10.2); Carbon Dioxide 27 mmol/L (22-29); Chloride 106 mmol/L (96-108); Cholesterol 111 mg/dL (<200); Creatinine Clr Calc Pharmacy 71.4; Estimated Glomerular Filt Rate > 60; HDL Cholesterol 33 mg/dL (>40); Potassium 4.1 mmol/L (3.3-5.1); Sodium 140 mmol/L (135-145); Total Protein 6.3 g/dL (6.5-8.0); Triglycerides 82 mg/dL (<150)
[2025-02-27 07:56] LABS: Hemoglobin A1C 116.8413 umol/L; Total Hemoglobin (HGBA1C) 3328.8065 umol/L
[2025-02-27 08:00] VITALS: BP 104/72; O2SAT 98
[2025-02-27 08:06] LABS: Free T4 (Free Thyroxine) 0.99 ng/dL (0.71-1.85); Thyroid Stimulating Hormone 1.14 uIU/mL (0.32-4.0)
--- NOTE | 2025-02-27 09:52 | HO.PSYADMNOT ---
HPI Date of Service: 02/27/25 Chief Complaint: increased paranoid Sources of Information: patient interviewed, chart reviewed and crisis/core team assessment reviewed HPI Subjective Notes: Renteria Warning and Section 12B Narrative: is a 69 year-old male with hx of Major Neurocognitive disorder as result of combination of anoxic brain injury along with vascular changes. He was recently discharged from on 02/08/25 after treatment of intermittent combative behaviors as result of progression of dementia causing paranoid delusion, impulsive behaviors. He was brought via EMS on 02/23/25 due to increase combative behaviors, holding a knife, presenting as paranoid and suspicious. Pt does not have any recollection of events leading to this admission and does not know where he is or how long he has been here. 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 Pertinent labs completed in the ED include: CBC with normocytic anemia (note he is on aspirin); CMP without electrolyte abnormalities, BUN 10, Cr 1.13, creatinine clearance 97.8. UA showed leukocytosis but no nitrites no bacteria, no culture completed however, pt was started on ceftin 500mg po BID (at this point will d/c). On the unit, pt presents as calm and cooperative. He does not know where he is nor why. He does not remember events leading to this admission. He is taking medications as prescribed. Last admission it was noted that his agitation can drastically change depending on where he thinks he is or not and there are times when he can become very suspicious and paranoid. Pt was seen by OP psych provider Aram Tolbert. He was started on trileptal and olazapine was increased to 7.5mg po BID. Past Psychiatric History: Inpt: Discharge from [facility] 02/08/2025 with severe cognitive impairment, intermittent agitation, discharge medications included olanzapine 5 mg twice daily and 2.5 mg as needed, Klonopin 0.5 mg twice daily, trazodone 100 mg and lamotrigine for seizure disorder Past medication trials: seroquel, sertraline. Medical Evaluation Reviewed: Yes [facility] Medical History (Updated 02/28/25 @ 14:42 by Aidee Lucio NP) Primary degenerative dementia Dementia Complex partial seizures Anxiety Seizure disorder Hypertension CAD (coronary artery disease) BPH loc w urin obs/LUTS Contusion of left chest wall Emphysema of lung Neurogenic bladder Prostate nodule Ataxia Anoxic brain injury Epilepsy Cardiac arrest Surgical History No pertinent past surgical history Family History: no prior psych hx as per chart Social History: Pt lives with . Trauma History: None reported Diagnostics Vital Signs (24Hr): Vital Signs - 24 hr 02/26/25 13:44 02/26/25 20:44 Temperature 98.5 F 98.8 F Pulse Rate 72 69 Respiratory Rate 16 18 Blood Pressure 103/67 118/71 Pulse Oximetry 95 98 Oxygen Delivery Method Room Air Room Air BMI result Body Mass Index 19.3 Labs 02/22/25 12:44 02/27/25 07:12 Labs: Laboratory Results - last 48 hr 02/27/25 07:12 Sodium 140 Potassium 4.1 Chloride 106 Carbon Dioxide 27 Anion Gap 11 L BUN 17 H Creatinine 0.94 Estim Creat Clear Calc 71.4 Estimated GFR > 60 Random Glucose 102 Estimat Average Glucose 108 Hemoglobin A1c % 5.4 Calcium 8.5 Total Bilirubin 0.2 AST 32 ALT 14 Alkaline Phosphatase 95 Total Protein 6.3 L Albumin 4.0 Triglycerides 82 Cholesterol 111 LDL Cholesterol, Calc 62 HDL Cholesterol 33 L TSH 1.14 Free T4 0.99 Meds/Allergies Meds Home Medications ?Medication ?Instructions ?Recorded ?Confirmed ?Type lamotrigine 150 mg tablet 150 mg PO BID 08/21/23 02/23/25 History sertraline 50 mg tablet 50 mg PO BEDTIME 08/21/23 02/23/25 History atorvastatin 80 mg tablet 80 mg PO BEDTIME 09/01/23 02/23/25 History calcium polycarbophil 625 mg 625 mg PO DAILY 01/16/25 02/23/25 History tablet (Fiber (calcium polycarbophil)) clonazepam 0.5 mg tablet (Klonopin) 0.5 mg PO TID 02/23/25 02/23/25 History olanzapine 15 mg tablet 7.5 mg PO BID 02/23/25 02/23/25 History olanzapine 5 mg disintegrating 5 mg PO DAILY PRN psychosis 02/23/25 02/23/25 History tablet oxcarbazepine 150 mg tablet 150 mg PO BID 02/23/25 02/23/25 History Allergies Allergies Allergy/AdvReac Type Severity Reaction Status Date / Time lisinopril Allergy Mild Unknown Verified 02/22/25 11:20 codeine Allergy Unknown Verified 02/22/25 11:20 Mental Status Exam Mental Status Exam Narrative: Appearance:wearing hospital gown, fair hygiene, in NAD Behavior: cooperative Psychomotor: no agitation or retardation noted Speech: mostly clear, normal rate/rhythm/volume, spontaneous TP: mostly linear TC: asking for his and son Mood: okay Affect: congruent, non labile SI: denies HI: denies VH/AH: does not appear at this time Delusions: confabulation, along with more delusional thinking. insight/judgment: impaired x 2 memory/cog: alert, oriented only to self. severely impaired. Assessment & Plan Assessment & Plan (1) Major neurocognitive disorder due to another medical condition with behavioral disturbance: Status: Acute Code(s): F02.818 - Dementia in other diseases classified elsewhere, unspecified severity, with other behavioral disturbance Plan Mr. 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 medical work up is unremarkable. He was started on ceftin for UTI- however, UA has leukocytosis but no nitrites nor bacteria (will stop ceftin). recommend increasing trileptal to 300mg po BID, continue olanzapine 7.5mg po BID. Continue trazodone 100mg po qhs. Will restart clonazepam 0.25mg po BID. Will monitor oversedation. PLAN 1. Admit to S1, HCP invoked, pending CV by HCP. 2. INcrease trileptal to 300mg po BID, continue olanzapine 7.5mg po BID, start/restart clonazepam 0.25mg po BID. Monitor over sedation. Continue Sertraline 50mg po daily. 3. obtain collateral information 4. aftercare planning. Patient educated on: diagnosis and medication risk/benefits Reason for continued inpatient stay Substantial Risk for: harm to others and inability to function Statement Statement: I have reviewed the history and physical and performed a pertinent examination on my patient. No changes have occurred unless specified. If the History and Physical was not performed prior to admission, the Hospitalist's service will be consulted for completing the admission physical. Time Spent With Patient Time: Total time managing care of this patient today ____ minutes.
[2025-02-27 11:05] VITALS: BMI 19.3
[2025-02-27] MEDS: calcium polycarbophiL TABLET 1 TAB PO (12:20)
[2025-02-27 20:00] VITALS: BP 125/79; PULSE 73; RESP 15; TEMP 36.9; O2SAT 98
[2025-02-28] MEDS: OLANZapine ODT 10 MG TAB.RAPDIS 5 MG TRANSLINGU ×2 (00:49→14:58)
[2025-02-28 08:45] VITALS: BP 147/78; PULSE 80; RESP 16; TEMP 36.9; O2SAT 99
--- NOTE | 2025-02-28 09:13 | HO.HCP ---
Health Care Proxy Invocation Health Care Proxy Declaration: I, _Aidee uLcio__, on the date cited below, have determined that, 02/28/2025, lacks the capacity to make or communicate, informed health care decision. This determination is made in accordance with accepted standards of medical judgment and pursuant to [place] 201[place], the [place] Health Care Proxy Law. The cause, nature, extent and probable duration of the patient's inapacity are described below: Cause: Major Neurocognitive Disorder Nature:Chronic and progressive cognitive/memory impairment Extent: Chronic Probable Duration of Patient's Incapacity:lifetime
[2025-02-28] MEDS: calcium polycarbophiL TABLET 1 TAB PO (09:54)
--- NOTE | 2025-02-28 16:17 | HO.PSYCHPN ---
Subjective Subjective Date of Service: 02/28/25 Reason For Visit: increased paranoid Subjective Notes: Conditional Voluntary Interim History: He had difficulty sleeping confused not oriented to place, month, year nor situation. He is taking medications, intermittent explosive behaviors. VS stable. Medication Compliance: Yes Review of Systems Constitutional: Denies body ache(s), Denies chills and Denies fever(s) Eyes: Denies blurry vision Denies dizziness and Denies dry mouth Cardiovascular: Denies chest pain and Denies dyspnea on exertion Respiratory: Denies cough and Denies dyspnea on exertion Gastrointestinal: Denies abdominal pain Musculoskeletal: Denies back pain and Denies arthralgias Skin/Breast: Denies rash Denies dizziness Psychiatric: Denies anxiety, Denies depression, Denies visual hallucinations, Denies homicidal ideation and Denies suicidal ideation Mental Status Exam Mental Status Exam Narrative: Appearance:wearing hospital gown, fair hygiene, in NAD Behavior: cooperative Psychomotor: no agitation or retardation noted Speech: mostly clear, normal rate/rhythm/volume, spontaneous TP: mostly linear TC: asking for his and son Mood: okay Affect: congruent, non labile SI: denies HI: denies VH/AH: does not appear at this time Delusions: confabulation, along with more delusional thinking. insight/judgment: impaired x 2 memory/cog: alert, oriented only to self. severely impaired. Diagnostics Vital Signs (24Hr): Vital Signs - 24 hr 02/27/25 20:00 02/28/25 08:45 Temperature 98.4 F 98.4 F Pulse Rate 73 80 Respiratory Rate 15 16 Blood Pressure 125/79 147/78 H Pulse Oximetry 98 99 Oxygen Delivery Method Room Air Room Air BMI result Body Mass Index 19.3 Labs 02/22/25 12:44 02/27/25 07:12 Labs: Laboratory Results - last 48 hr 02/27/25 07:12 Sodium 140 Potassium 4.1 Chloride 106 Carbon Dioxide 27 Anion Gap 11 L BUN 17 H Creatinine 0.94 Estim Creat Clear Calc 71.4 Estimated GFR > 60 Random Glucose 102 Estimat Average Glucose 108 Hemoglobin A1c % 5.4 Calcium 8.5 Total Bilirubin 0.2 AST 32 ALT 14 Alkaline Phosphatase 95 Total Protein 6.3 L Albumin 4.0 Triglycerides 82 Cholesterol 111 LDL Cholesterol, Calc 62 HDL Cholesterol 33 L TSH 1.14 Free T4 0.99 Medications Medications Current Medications Acetaminophen (Acetaminophen 325 Mg Tablet) 650 mg PO Q6H PRN PRN Reason: Headache/Pain, Scale 1-10 Al Hydroxide/Mg Hydroxide (Magnesium Hydrox/Alum Hydrox 30 Ml Oral.Susp) 30 ml PO Q6H PRN PRN Reason: Heartburn/Nausea Aspirin (Aspirin 81 Mg Tab.Chew) 81 mg PO DAILY [facility] Last Admin: 02/28/25 09:55 Dose: 81 mg Atorvastatin Calcium (Atorvastatin Calcium 80 Mg Tablet) 80 mg PO BEDTIME [facility] Last Admin: 02/27/25 22:09 Dose: 80 mg Calcium Polycarbophil (Calcium Polycarbophil Tablet) 1 tab PO DAILY [facility] Last Admin: 02/28/25 09:54 Dose: 1 tab Clonazepam (Clonazepam Odt 0.125 Mg Tab.Rapdis) 0.25 mg PO BID [facility] Clopidogrel Bisulfate (Clopidogrel Bisulfate 75 Mg Tablet) 75 mg PO DAILY [facility] Last Admin: 02/28/25 09:54 Dose: 75 mg Cyanocobalamin (Cyanocobalamin (Vitamin B-12) 1,000 Mcg Tablet) 1,000 mcg PO DAILY [facility] Last Admin: 02/28/25 09:54 Dose: 1,000 mcg Finasteride (Finasteride 5 Mg Tablet) 5 mg PO DAILY [facility] Last Admin: 02/28/25 09:55 Dose: 5 mg Hydroxyzine HCl (Hydroxyzine Hcl 25 Mg Tablet) 25 mg PO Q6H PRN PRN Reason: mild anxiety Last Admin: 02/28/25 00:50 Dose: 25 mg Lamotrigine (Lamotrigine 25 Mg Tablet) 150 mg PO BID [facility] Last Admin: 02/28/25 09:52 Dose: 150 mg Magnesium Hydroxide (Milk Of Magnesia 30 Ml Oral.Susp) 30 ml PO DAILY PRN PRN Reason: Constipation Nicotine (Nicotine 21 Mg Patch.Td24) 21 mg TRANSDERMA DAILY PRN PRN Reason: nicotine craving Nicotine Polacrilex (Nicotine Polacrilex 2 Mg Gum) 2 mg BUCCAL Q2H PRN PRN Reason: Nicotine Cravings Olanzapine (Olanzapine Odt 10 Mg Tab.Rapdis) 5 mg TRANSLINGU Q6H PRN PRN Reason: agitation or psychosis Last Admin: 02/28/25 14:58 Dose: 5 mg Olanzapine (Olanzapine 5 Mg Tablet) 7.5 mg PO BID [facility] Last Admin: 02/28/25 09:51 Dose: 7.5 mg Oxcarbazepine (Oxcarbazepine 300 Mg Tablet) 300 mg PO BID [facility] Sertraline HCl (Sertraline Hcl 50 Mg Tablet) 50 mg PO BEDTIME [facility] Last Admin: 02/27/25 22:08 Dose: 50 mg Thiamine HCl (Thiamine Hcl 100 Mg Tablet) 100 mg PO DAILY [facility] Last Admin: 02/28/25 09:55 Dose: 100 mg Trazodone HCl (Trazodone Hcl 100 Mg Tablet) 100 mg PO BEDTIME [facility] Last Admin: 02/27/25 22:08 Dose: 100 mg Trazodone HCl (Trazodone Hcl 50 Mg Tablet) 50 mg PO BEDTIME MRX1 PRN PRN Reason: Insomnia Last Admin: 02/28/25 00:50 Dose: 50 mg Allergies Allergies Allergy/AdvReac Type Severity Reaction Status Date / Time lisinopril Allergy Mild Unknown Verified 02/22/25 11:20 codeine Allergy Unknown Verified 02/22/25 11:20 Assessment & Plan Assessment & Plan (1) Major neurocognitive disorder due to another medical condition with behavioral disturbance: Status: Acute Code(s): F02.818 - Dementia in other diseases classified elsewhere, unspecified severity, with other behavioral disturbance Plan Mr. 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 medical work up is unremarkable. He was started on ceftin for UTI- however, UA has leukocytosis but no nitrites nor bacteria (will stop ceftin). recommend increasing trileptal to 300mg po BID, continue olanzapine 7.5mg po BID. Continue trazodone 100mg po qhs. Will restart clonazepam 0.25mg po BID. Will monitor oversedation. PLAN 02/28 increase trileptal to 300mg po BID, continue olanzapine 7.5mg po BID, start/restart clonazepam 0.25mg po BID. Monitor over sedation. Continue Sertraline 50mg po daily. Reason for continued inpatient stay Substantial Risk for: inability to function Time Spent With Patient Time: Total time managing care of this patient today ____ minutes.
[2025-02-28 20:00] VITALS: BP 148/70; PULSE 71; RESP 18; TEMP 36.3; O2SAT 98
[2025-02-28] MEDS: clonazePAM ODT 0.125 MG TAB.RAPDIS 0.25 MG PO (20:50)
[2025-03-01 09:04] VITALS: BP 108/67; PULSE 87; RESP 18; TEMP 36.4; O2SAT 97
--- NOTE | 2025-03-01 09:13 | P.PNPSI_ITS ---
Subjective Subjective Date of Service: 03/01/25 Reason For Visit: increased paranoid Interim History: Poor sleep last night. Was up until 3 AM. Sleeping most of the day today. Irritable overnight. No pain. No physical complaints. No SI Review of Systems Constitutional: Denies body ache(s), Denies chills and Denies fever(s) Eyes: Denies blurry vision Denies dizziness and Denies dry mouth Cardiovascular: Denies chest pain and Denies dyspnea on exertion Respiratory: Denies cough and Denies dyspnea on exertion Gastrointestinal: Denies abdominal pain Musculoskeletal: Denies back pain and Denies arthralgias Skin/Breast: Denies rash Denies dizziness Psychiatric: Denies anxiety, Denies depression, Denies visual hallucinations, Denies homicidal ideation and Denies suicidal ideation Mental Status Exam Mental Status Exam Narrative: Appearance:wearing hospital gown, fair hygiene, in NAD Behavior: cooperative Psychomotor: no agitation or retardation noted Speech: mostly clear, normal rate/rhythm/volume, spontaneous TP: mostly linear TC: asking for his and son Mood: okay Affect: congruent, non labile SI: denies HI: denies VH/AH: does not appear at this time Delusions: confabulation, along with more delusional thinking. insight/judgment: impaired x 2 memory/cog: alert, oriented only to self. severely impaired. Diagnostics Vital Signs (24Hr): Vital Signs - 24 hr 02/28/25 20:00 03/01/25 09:04 Temperature 97.4 F 97.5 F Pulse Rate 71 87 Respiratory Rate 18 18 Blood Pressure 148/70 H 108/67 Pulse Oximetry 98 97 Oxygen Delivery Method Room Air Room Air BMI result Body Mass Index 19.3 Labs 02/22/25 12:44 02/27/25 07:12 Medications Medications Current Medications Acetaminophen (Acetaminophen 325 Mg Tablet) 650 mg PO Q6H PRN PRN Reason: Headache/Pain, Scale 1-10 Al Hydroxide/Mg Hydroxide (Magnesium Hydrox/Alum Hydrox 30 Ml Oral.Susp) 30 ml PO Q6H PRN PRN Reason: Heartburn/Nausea Aspirin (Aspirin 81 Mg Tab.Chew) 81 mg PO DAILY [facility] Last Admin: 02/28/25 09:55 Dose: 81 mg Atorvastatin Calcium (Atorvastatin Calcium 80 Mg Tablet) 80 mg PO BEDTIME [facility] Last Admin: 02/28/25 20:47 Dose: 80 mg Calcium Polycarbophil (Calcium Polycarbophil Tablet) 1 tab PO DAILY [facility] Last Admin: 02/28/25 09:54 Dose: 1 tab Clonazepam (Clonazepam Odt 0.125 Mg Tab.Rapdis) 0.25 mg PO BID [facility] Last Admin: 02/28/25 20:50 Dose: 0.25 mg Clopidogrel Bisulfate (Clopidogrel Bisulfate 75 Mg Tablet) 75 mg PO DAILY [facility] Last Admin: 02/28/25 09:54 Dose: 75 mg Cyanocobalamin (Cyanocobalamin (Vitamin B-12) 1,000 Mcg Tablet) 1,000 mcg PO DAILY [facility] Last Admin: 02/28/25 09:54 Dose: 1,000 mcg Finasteride (Finasteride 5 Mg Tablet) 5 mg PO DAILY [facility] Last Admin: 02/28/25 09:55 Dose: 5 mg Lamotrigine (Lamotrigine 25 Mg Tablet) 150 mg PO BID [facility] Last Admin: 02/28/25 20:47 Dose: 150 mg Magnesium Hydroxide (Milk Of Magnesia 30 Ml Oral.Susp) 30 ml PO DAILY PRN PRN Reason: Constipation Nicotine (Nicotine 21 Mg Patch.Td24) 21 mg TRANSDERMA DAILY PRN PRN Reason: nicotine craving Nicotine Polacrilex (Nicotine Polacrilex 2 Mg Gum) 2 mg BUCCAL Q2H PRN PRN Reason: Nicotine Cravings Olanzapine (Olanzapine Odt 10 Mg Tab.Rapdis) 5 mg TRANSLINGU Q6H PRN PRN Reason: agitation or psychosis Last Admin: 02/28/25 14:58 Dose: 5 mg Olanzapine (Olanzapine 5 Mg Tablet) 7.5 mg PO BID [facility] Last Admin: 02/28/25 20:48 Dose: 7.5 mg Oxcarbazepine (Oxcarbazepine 300 Mg Tablet) 300 mg PO BID [facility] Last Admin: 02/28/25 20:50 Dose: 300 mg Sertraline HCl (Sertraline Hcl 50 Mg Tablet) 50 mg PO BEDTIME [facility] Last Admin: 02/28/25 20:50 Dose: 50 mg Thiamine HCl (Thiamine Hcl 100 Mg Tablet) 100 mg PO DAILY [facility] Last Admin: 02/28/25 09:55 Dose: 100 mg Trazodone HCl (Trazodone Hcl 100 Mg Tablet) 100 mg PO BEDTIME [facility] Last Admin: 02/28/25 20:50 Dose: 100 mg Trazodone HCl (Trazodone Hcl 50 Mg Tablet) 50 mg PO BEDTIME MRX1 PRN PRN Reason: Insomnia Last Admin: 02/28/25 00:50 Dose: 50 mg Allergies Allergies Allergy/AdvReac Type Severity Reaction Status Date / Time lisinopril Allergy Mild Unknown Verified 02/22/25 11:20 codeine Allergy Unknown Verified 02/22/25 11:20 Assessment & Plan Assessment & Plan (1) Major neurocognitive disorder due to another medical condition with behavioral disturbance: Status: Acute Code(s): F02.818 - Dementia in other diseases classified elsewhere, unspecified severity, with other behavioral disturbance Plan Mr. 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 medical work up is unremarkable. He was started on ceftin for UTI- however, UA has leukocytosis but no nitrites nor bacteria (will stop ceftin). recommend increasing trileptal to 300mg po BID, continue olanzapine 7.5mg po BID. Continue trazodone 100mg po qhs. Will restart clonazepam 0.25mg po BID. Will monitor oversedation. PLAN 1. Admit to S1, HCP invoked, pending CV by HCP. 2. INcrease trileptal to 300mg po BID, continue olanzapine 7.5mg po BID, start/restart clonazepam 0.25mg po BID. Monitor over sedation. Continue Sertraline 50mg po daily. 3. obtain collateral information 4. aftercare planning. 03/01: continue current management and treatment plan. Reason for continued inpatient stay Substantial Risk for: inability to function, rapid decompensation and med/psych decompensation Time Spent With Patient Time: Total time managing care of this patient today ____ minutes.
[2025-03-01] MEDS: clonazePAM ODT 0.125 MG TAB.RAPDIS 0.25 MG PO ×2 (13:35→20:24)
[2025-03-01] MEDS: calcium polycarbophiL TABLET 1 TAB PO (13:36)
--- NOTE | 2025-03-01 18:00 | PC.NURSE ---
Patient slept in late. All PO medication given late, OK with Dr. Napoleon Dash.
[2025-03-01] MEDS: OLANZapine ODT 10 MG TAB.RAPDIS 5 MG TRANSLINGU (19:05)
[2025-03-01 20:00] VITALS: BP 133/84; PULSE 94; RESP 16; TEMP 36.4; TEMP 36.6; O2SAT 98
[2025-03-02 08:30] VITALS: BP 124/71; PULSE 93; RESP 16; TEMP 37.2; O2SAT 96
--- NOTE | 2025-03-02 08:47 | P.PNPSI_ITS ---
Subjective Subjective Date of Service: 03/02/25 Reason For Visit: increased paranoid Interim History: Better sleep last night. In behavioral control. Patient approached and when asked how he is doing he said: I went to [facility]. 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 (meaning the hospital). He has been mostly cooperative and severely confused. Patient sundowns in the afternoon. Nurse that took care of patient says he received Valium and was helpful. Olanzapine PRN hasn't been helpful for the afternoon period. No pain. No physical complaints. No SI Review of Systems Constitutional: Denies body ache(s), Denies chills and Denies fever(s) Eyes: Denies blurry vision Denies dizziness and Denies dry mouth Cardiovascular: Denies chest pain and Denies dyspnea on exertion Respiratory: Denies cough and Denies dyspnea on exertion Gastrointestinal: Denies abdominal pain Musculoskeletal: Denies back pain and Denies arthralgias Skin/Breast: Denies rash Denies dizziness Psychiatric: Denies anxiety, Denies depression, Denies visual hallucinations, Denies homicidal ideation and Denies suicidal ideation Mental Status Exam Mental Status Exam Narrative: Appearance:wearing hospital gown, fair hygiene, in NAD Behavior: cooperative Psychomotor: no agitation or retardation noted Speech: mostly clear, normal rate/rhythm/volume, spontaneous TP: mostly linear TC: asking for his and son Mood: okay Affect: congruent, non labile SI: denies HI: denies VH/AH: does not appear at this time Delusions: confabulation, along with more delusional thinking. insight/judgment: impaired x 2 memory/cog: alert, oriented only to self. severely impaired. Diagnostics Vital Signs (24Hr): Vital Signs - 24 hr 03/01/25 09:04 03/01/25 20:00 03/01/25 20:00 Temperature 97.5 F 97.5 F 98 F Pulse Rate 87 94 94 Respiratory Rate 18 16 Blood Pressure 108/67 133/84 133/84 Pulse Oximetry 97 98 98 Oxygen Delivery Method Room Air Room Air Room Air BMI result Body Mass Index 19.3 Labs 02/22/25 12:44 02/27/25 07:12 Medications Medications Current Medications Acetaminophen (Acetaminophen 325 Mg Tablet) 650 mg PO Q6H PRN PRN Reason: Headache/Pain, Scale 1-10 Al Hydroxide/Mg Hydroxide (Magnesium Hydrox/Alum Hydrox 30 Ml Oral.Susp) 30 ml PO Q6H PRN PRN Reason: Heartburn/Nausea Aspirin (Aspirin 81 Mg Tab.Chew) 81 mg PO DAILY [facility] Last Admin: 03/01/25 13:36 Dose: 81 mg Atorvastatin Calcium (Atorvastatin Calcium 80 Mg Tablet) 80 mg PO BEDTIME [facility] Last Admin: 03/01/25 20:23 Dose: 80 mg Calcium Polycarbophil (Calcium Polycarbophil Tablet) 1 tab PO DAILY [facility] Last Admin: 03/01/25 13:36 Dose: 1 tab Clonazepam (Clonazepam Odt 0.125 Mg Tab.Rapdis) 0.25 mg PO BID [facility] Last Admin: 03/01/25 20:24 Dose: 0.25 mg Clopidogrel Bisulfate (Clopidogrel Bisulfate 75 Mg Tablet) 75 mg PO DAILY [facility] Last Admin: 03/01/25 13:35 Dose: 75 mg Cyanocobalamin (Cyanocobalamin (Vitamin B-12) 1,000 Mcg Tablet) 1,000 mcg PO DAILY [facility] Last Admin: 03/01/25 13:36 Dose: 1,000 mcg Finasteride (Finasteride 5 Mg Tablet) 5 mg PO DAILY [facility] Last Admin: 03/01/25 13:34 Dose: 5 mg Lamotrigine (Lamotrigine 100 Mg Tablet) 100 mg PO BID [facility] Lamotrigine (Lamotrigine 25 Mg Tablet) 50 mg PO BID [facility] Magnesium Hydroxide (Milk Of Magnesia 30 Ml Oral.Susp) 30 ml PO DAILY PRN PRN Reason: Constipation Nicotine (Nicotine 21 Mg Patch.Td24) 21 mg TRANSDERMA DAILY PRN PRN Reason: nicotine craving Nicotine Polacrilex (Nicotine Polacrilex 2 Mg Gum) 2 mg BUCCAL Q2H PRN PRN Reason: Nicotine Cravings Olanzapine (Olanzapine Odt 10 Mg Tab.Rapdis) 5 mg TRANSLINGU Q6H PRN PRN Reason: agitation or psychosis Last Admin: 03/01/25 19:05 Dose: 5 mg Olanzapine (Olanzapine 5 Mg Tablet) 7.5 mg PO BID [facility] Last Admin: 03/01/25 20:23 Dose: 7.5 mg Oxcarbazepine (Oxcarbazepine 300 Mg Tablet) 300 mg PO BID [facility] Last Admin: 03/01/25 20:23 Dose: 300 mg Sertraline HCl (Sertraline Hcl 50 Mg Tablet) 50 mg PO BEDTIME [facility] Last Admin: 03/01/25 20:24 Dose: 50 mg Thiamine HCl (Thiamine Hcl 100 Mg Tablet) 100 mg PO DAILY [facility] Last Admin: 03/01/25 13:34 Dose: 100 mg Trazodone HCl (Trazodone Hcl 100 Mg Tablet) 100 mg PO BEDTIME [facility] Last Admin: 03/01/25 20:24 Dose: 100 mg Trazodone HCl (Trazodone Hcl 50 Mg Tablet) 50 mg PO BEDTIME MRX1 PRN PRN Reason: Insomnia Last Admin: 02/28/25 00:50 Dose: 50 mg Allergies Allergies Allergy/AdvReac Type Severity Reaction Status Date / Time lisinopril Allergy Mild Unknown Verified 02/22/25 11:20 codeine Allergy Unknown Verified 02/22/25 11:20 Assessment & Plan Assessment & Plan (1) Major neurocognitive disorder due to another medical condition with behavioral disturbance: Status: Acute Code(s): F02.818 - Dementia in other diseases classified elsewhere, unspecified severity, with other behavioral disturbance Plan Mr. 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 medical work up is unremarkable. He was started on ceftin for UTI- however, UA has leukocytosis but no nitrites nor bacteria (will stop ceftin). recommend increasing trileptal to 300mg po BID, continue olanzapine 7.5mg po BID. Continue trazodone 100mg po qhs. Will restart clonazepam 0.25mg po BID. Will monitor oversedation. PLAN 1. Admit to S1, HCP invoked, pending CV by HCP. 2. INcrease trileptal to 300mg po BID, continue olanzapine 7.5mg po BID, start/restart clonazepam 0.25mg po BID. Monitor over sedation. Continue Sertraline 50mg po daily. 3. obtain collateral information 4. aftercare planning. 03/01: continue current management and treatment plan. 03/02: Increase Klonopin to TID. (9:00, 15:00, HS). Reason for continued inpatient stay Substantial Risk for: inability to function, rapid decompensation and med/psych decompensation Time Spent With Patient Time: Total time managing care of this patient today ____ minutes.
[2025-03-02] MEDS: calcium polycarbophiL TABLET 1 TAB PO (09:27)
[2025-03-02] MEDS: clonazePAM ODT 0.125 MG TAB.RAPDIS 0.25 MG PO ×3 (09:29→20:17)
[2025-03-02 20:00] VITALS: BP 130/82; PULSE 72; RESP 16; TEMP 36.6; O2SAT 97
[2025-03-03] MEDS: OLANZapine ODT 10 MG TAB.RAPDIS 5 MG TRANSLINGU (01:53)
[2025-03-03 08:00] VITALS: BP 114/83; PULSE 86; RESP 16; TEMP 35.9; O2SAT 96
[2025-03-03] MEDS: calcium polycarbophiL TABLET 1 TAB PO (08:23)
[2025-03-03] MEDS: clonazePAM ODT 0.125 MG TAB.RAPDIS 0.25 MG PO ×3 (08:24→20:45)
--- NOTE | 2025-03-03 12:09 | HO.PSYCHPN ---
Subjective Subjective Date of Service: 03/03/25 Reason For Visit: increased paranoid Interim History: Patient is at baseline. No changes. He vacillates between being pleasantly confused and paranoid. He engages in confused conversations with staff. He says to this casualty underwriter, ... you have to apologize to me all of you. I need Chan Lizandrowangpriscila? number... Better sleep last night. In behavioral control. Paces with 1:1 support. Not sedated. No pain. No physical complaints. No SI Review of Systems Constitutional: Denies body ache(s), Denies chills and Denies fever(s) Eyes: Denies blurry vision Denies dizziness and Denies dry mouth Cardiovascular: Denies chest pain and Denies dyspnea on exertion Respiratory: Denies cough and Denies dyspnea on exertion Gastrointestinal: Denies abdominal pain Musculoskeletal: Denies back pain and Denies arthralgias Skin/Breast: Denies rash Denies dizziness Psychiatric: Denies anxiety, Denies depression, Denies visual hallucinations, Denies homicidal ideation and Denies suicidal ideation Mental Status Exam Mental Status Exam Narrative: Appearance:wearing hospital gown, fair hygiene, in NAD Behavior: cooperative Psychomotor: no agitation or retardation noted Speech: mostly clear, normal rate/rhythm/volume, spontaneous TP: mostly linear TC: asking for his and son Mood: okay Affect: congruent, non labile SI: denies HI: denies VH/AH: does not appear at this time Delusions: confabulation, along with more delusional thinking. insight/judgment: impaired x 2 memory/cog: alert, oriented only to self. severely impaired. Diagnostics Vital Signs (24Hr): Vital Signs - 24 hr 03/02/25 20:00 Temperature 98 F Pulse Rate 72 Respiratory Rate 16 Blood Pressure 130/82 Pulse Oximetry 97 Oxygen Delivery Method Room Air BMI result Body Mass Index 19.3 Labs 02/22/25 12:44 02/27/25 07:12 Medications Medications Current Medications Acetaminophen (Acetaminophen 325 Mg Tablet) 650 mg PO Q6H PRN PRN Reason: Headache/Pain, Scale 1-10 Last Admin: 03/02/25 20:17 Dose: 650 mg Al Hydroxide/Mg Hydroxide (Magnesium Hydrox/Alum Hydrox 30 Ml Oral.Susp) 30 ml PO Q6H PRN PRN Reason: Heartburn/Nausea Aspirin (Aspirin 81 Mg Tab.Chew) 81 mg PO DAILY [facility] Last Admin: 03/03/25 08:24 Dose: 81 mg Atorvastatin Calcium (Atorvastatin Calcium 80 Mg Tablet) 80 mg PO BEDTIME [facility] Last Admin: 03/02/25 20:18 Dose: 80 mg Calcium Polycarbophil (Calcium Polycarbophil Tablet) 1 tab PO DAILY [facility] Last Admin: 03/03/25 08:23 Dose: 1 tab Clonazepam (Clonazepam Odt 0.125 Mg Tab.Rapdis) 0.25 mg PO TID [facility] Last Admin: 03/03/25 08:24 Dose: 0.25 mg Clopidogrel Bisulfate (Clopidogrel Bisulfate 75 Mg Tablet) 75 mg PO DAILY [facility] Last Admin: 03/03/25 08:23 Dose: 75 mg Cyanocobalamin (Cyanocobalamin (Vitamin B-12) 1,000 Mcg Tablet) 1,000 mcg PO DAILY [facility] Last Admin: 03/03/25 08:24 Dose: 1,000 mcg Finasteride (Finasteride 5 Mg Tablet) 5 mg PO DAILY [facility] Last Admin: 03/03/25 08:25 Dose: 5 mg Lamotrigine (Lamotrigine 100 Mg Tablet) 100 mg PO BID [facility] Last Admin: 03/03/25 08:48 Dose: 100 mg Lamotrigine (Lamotrigine 25 Mg Tablet) 50 mg PO BID [facility] Last Admin: 03/03/25 08:24 Dose: 50 mg Magnesium Hydroxide (Milk Of Magnesia 30 Ml Oral.Susp) 30 ml PO DAILY PRN PRN Reason: Constipation Nicotine (Nicotine 21 Mg Patch.Td24) 21 mg TRANSDERMA DAILY PRN PRN Reason: nicotine craving Nicotine Polacrilex (Nicotine Polacrilex 2 Mg Gum) 2 mg BUCCAL Q2H PRN PRN Reason: Nicotine Cravings Olanzapine (Olanzapine Odt 10 Mg Tab.Rapdis) 5 mg TRANSLINGU Q6H PRN PRN Reason: agitation or psychosis Last Admin: 03/03/25 01:53 Dose: 5 mg Olanzapine (Olanzapine 5 Mg Tablet) 7.5 mg PO BID [facility] Last Admin: 03/03/25 08:24 Dose: 7.5 mg Oxcarbazepine (Oxcarbazepine 300 Mg Tablet) 300 mg PO BID [facility] Last Admin: 03/03/25 08:47 Dose: 300 mg Sertraline HCl (Sertraline Hcl 50 Mg Tablet) 50 mg PO BEDTIME [facility] Last Admin: 03/02/25 20:18 Dose: 50 mg Thiamine HCl (Thiamine Hcl 100 Mg Tablet) 100 mg PO DAILY [facility] Last Admin: 03/03/25 08:24 Dose: 100 mg Trazodone HCl (Trazodone Hcl 100 Mg Tablet) 100 mg PO BEDTIME [facility] Last Admin: 03/02/25 20:17 Dose: 100 mg Trazodone HCl (Trazodone Hcl 50 Mg Tablet) 50 mg PO BEDTIME MRX1 PRN PRN Reason: Insomnia Last Admin: 03/03/25 01:53 Dose: 50 mg Allergies Allergies Allergy/AdvReac Type Severity Reaction Status Date / Time lisinopril Allergy Mild Unknown Verified 02/22/25 11:20 codeine Allergy Unknown Verified 02/22/25 11:20 Assessment & Plan Assessment & Plan (1) Major neurocognitive disorder due to another medical condition with behavioral disturbance: Status: Acute Code(s): F02.818 - Dementia in other diseases classified elsewhere, unspecified severity, with other behavioral disturbance Plan Mr. 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 medical work up is unremarkable. He was started on ceftin for UTI- however, UA has leukocytosis but no nitrites nor bacteria (will stop ceftin). recommend increasing trileptal to 300mg po BID, continue olanzapine 7.5mg po BID. Continue trazodone 100mg po qhs. Will restart clonazepam 0.25mg po BID. Will monitor oversedation. PLAN 1. Admit to S1, HCP invoked, pending CV by HCP. 2. INcrease trileptal to 300mg po BID, continue olanzapine 7.5mg po BID, start/restart clonazepam 0.25mg po BID. Monitor over sedation. Continue Sertraline 50mg po daily. 3. obtain collateral information 4. aftercare planning. 03/01: continue current management and treatment plan. 03/02: Increase Klonopin to TID. (9:00, 15:00, HS). 03/03: Continue current management and treatment plan. Reason for continued inpatient stay Substantial Risk for: inability to function, rapid decompensation and med/psych decompensation Time Spent With Patient Time: Total time managing care of this patient today ____ minutes.
[2025-03-03 20:00] VITALS: BP 146/82; PULSE 73; RESP 18; TEMP 37; O2SAT 97
[2025-03-04 09:05] VITALS: BP 114/67; PULSE 95; RESP 16; TEMP 36.9; O2SAT 96
[2025-03-04] MEDS: clonazePAM ODT 0.125 MG TAB.RAPDIS 0.25 MG PO ×3 (10:01→20:33)
[2025-03-04] MEDS: calcium polycarbophiL TABLET 1 TAB PO (10:02)
--- NOTE | 2025-03-04 11:16 | P.PNPSI_ITS ---
Subjective Subjective Date of Service: 03/04/25 Reason For Visit: increased paranoid Subjective Notes: Conditional Voluntary Healthcare Proxy: Yes Interim History: Pt slept through the night. He tells this filing writer yesterday he went with his yasmeen to the store to buy some sawing needles for his daughter. He is looking for his son, asks this filing writer if I know where he is. He is calm, coloring. Not oriented to place, month, year nor situation. Taking medications as prescribed. Mental Status Exam Mental Status Exam Narrative: Appearance:wearing hospital gown, fair hygiene, in NAD Behavior: cooperative Psychomotor: no agitation or retardation noted Speech: mostly clear, normal rate/rhythm/volume, spontaneous TP: mostly linear TC: asking for his and son Mood: okay Affect: congruent, non labile SI: denies HI: denies VH/AH: does not appear at this time Delusions: confabulation, along with more delusional thinking. insight/judgment: impaired x 2 memory/cog: alert, oriented only to self. severely impaired. Diagnostics Vital Signs (24Hr): Vital Signs - 24 hr 03/03/25 20:00 03/04/25 09:05 Temperature 98.6 F 98.4 F Pulse Rate 73 95 Respiratory Rate 18 16 Blood Pressure 146/82 H 114/67 Pulse Oximetry 97 96 Oxygen Delivery Method Room Air Room Air BMI result Body Mass Index 19.3 Labs 02/22/25 12:44 02/27/25 07:12 Medications Medications Current Medications Acetaminophen (Acetaminophen 325 Mg Tablet) 650 mg PO Q6H PRN PRN Reason: Headache/Pain, Scale 1-10 Last Admin: 03/02/25 20:17 Dose: 650 mg Al Hydroxide/Mg Hydroxide (Magnesium Hydrox/Alum Hydrox 30 Ml Oral.Susp) 30 ml PO Q6H PRN PRN Reason: Heartburn/Nausea Aspirin (Aspirin 81 Mg Tab.Chew) 81 mg PO DAILY [facility] Last Admin: 03/04/25 10:03 Dose: 81 mg Atorvastatin Calcium (Atorvastatin Calcium 80 Mg Tablet) 80 mg PO BEDTIME [facility] Last Admin: 03/03/25 20:44 Dose: 80 mg Calcium Polycarbophil (Calcium Polycarbophil Tablet) 1 tab PO DAILY [facility] Last Admin: 03/04/25 10:02 Dose: 1 tab Clonazepam (Clonazepam Odt 0.125 Mg Tab.Rapdis) 0.25 mg PO TID [facility] Last Admin: 03/04/25 10:01 Dose: 0.25 mg Clopidogrel Bisulfate (Clopidogrel Bisulfate 75 Mg Tablet) 75 mg PO DAILY [facility] Last Admin: 03/04/25 10:02 Dose: 75 mg Cyanocobalamin (Cyanocobalamin (Vitamin B-12) 1,000 Mcg Tablet) 1,000 mcg PO DAILY [facility] Last Admin: 03/04/25 10:03 Dose: 1,000 mcg Finasteride (Finasteride 5 Mg Tablet) 5 mg PO DAILY [facility] Last Admin: 03/04/25 10:00 Dose: 5 mg Lamotrigine (Lamotrigine 100 Mg Tablet) 100 mg PO BID [facility] Last Admin: 03/04/25 10:03 Dose: 100 mg Lamotrigine (Lamotrigine 25 Mg Tablet) 50 mg PO BID [facility] Last Admin: 03/04/25 10:01 Dose: 50 mg Magnesium Hydroxide (Milk Of Magnesia 30 Ml Oral.Susp) 30 ml PO DAILY PRN PRN Reason: Constipation Nicotine (Nicotine 21 Mg Patch.Td24) 21 mg TRANSDERMA DAILY PRN PRN Reason: nicotine craving Nicotine Polacrilex (Nicotine Polacrilex 2 Mg Gum) 2 mg BUCCAL Q2H PRN PRN Reason: Nicotine Cravings Olanzapine (Olanzapine Odt 10 Mg Tab.Rapdis) 5 mg TRANSLINGU Q6H PRN PRN Reason: agitation or psychosis Last Admin: 03/03/25 01:53 Dose: 5 mg Olanzapine (Olanzapine 5 Mg Tablet) 7.5 mg PO BID [facility] Last Admin: 03/04/25 10:00 Dose: 7.5 mg Oxcarbazepine (Oxcarbazepine 300 Mg Tablet) 300 mg PO BID [facility] Last Admin: 03/04/25 10:03 Dose: 300 mg Sertraline HCl (Sertraline Hcl 50 Mg Tablet) 50 mg PO BEDTIME [facility] Last Admin: 03/03/25 20:44 Dose: 50 mg Thiamine HCl (Thiamine Hcl 100 Mg Tablet) 100 mg PO DAILY [facility] Last Admin: 03/04/25 10:03 Dose: 100 mg Trazodone HCl (Trazodone Hcl 100 Mg Tablet) 100 mg PO BEDTIME [facility] Last Admin: 03/03/25 20:44 Dose: 100 mg Trazodone HCl (Trazodone Hcl 50 Mg Tablet) 50 mg PO BEDTIME MRX1 PRN PRN Reason: Insomnia Last Admin: 03/03/25 01:53 Dose: 50 mg Allergies Allergies Allergy/AdvReac Type Severity Reaction Status Date / Time lisinopril Allergy Mild Unknown Verified 02/22/25 11:20 codeine Allergy Unknown Verified 02/22/25 11:20 Assessment & Plan Assessment & Plan (1) Major neurocognitive disorder due to another medical condition with behavioral disturbance: Status: Acute Code(s): F02.818 - Dementia in other diseases classified elsewhere, unspecified severity, with other behavioral disturbance Plan Mr. 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 medical work up is unremarkable. He was started on ceftin for UTI- however, UA has leukocytosis but no nitrites nor bacteria (will stop ceftin). recommend increasing trileptal to 300mg po BID, continue olanzapine 7.5mg po BID. Continue trazodone 100mg po qhs. Will restart clonazepam 0.25mg po BID. Will monitor oversedation. PLAN 02/28 increase trileptal to 300mg po BID, continue olanzapine 7.5mg po BID, start/restart clonazepam 0.25mg po BID. Monitor over sedation. Continue Sertraline 50mg po daily. 03/04 continue increased clonazepam to 0.25mg po TID, trileptal 300mg po BID, olanzapine 7.5mg po BID. trazodone 100mg po qhs and sertraline 50mg po daily. Reason for continued inpatient stay Substantial Risk for: inability to function Time Spent With Patient Time: Total time managing care of this patient today ____ minutes.
[2025-03-04] MEDS: OLANZapine ODT 10 MG TAB.RAPDIS 5 MG TRANSLINGU ×2 (16:49→22:22)
--- NOTE | 2025-03-04 19:35 | PC.NURSE ---
Pt was becoming increasingly agitated, trying to get out of his chair and threatening staff saying I'm gonna have your head! I'm going to break your thumb. Provider notified and advised HS Zyprexa early. With provider permission, Pt took 5mg of the 7.5mg dose and spit out the 2.5mg half of tab stating I'm not taking this shit!
[2025-03-04 19:42] VITALS: BP 144/103; PULSE 104; RESP 16; TEMP 36.4; O2SAT 95
[2025-03-05 08:20] VITALS: BP 126/74; PULSE 104; RESP 16; TEMP 37.1; O2SAT 95
[2025-03-05] MEDS: clonazePAM ODT 0.125 MG TAB.RAPDIS 0.25 MG PO ×3 (09:14→20:32)
[2025-03-05] MEDS: calcium polycarbophiL TABLET 1 TAB PO (09:15)
--- NOTE | 2025-03-05 09:18 | HO.PSYCHPN ---
Subjective Subjective Date of Service: 03/05/25 Reason For Visit: increased paranoid Subjective Notes: Conditional Voluntary Interim History: Pt only slept about 2 hrs. He was combative and agitated at night. This morning he woke up later. He denies any pain. He reports he is doing well and looking for his son. He is taking medications as prescribed. He had a witnessed fall this morning, no head injury, left wrist red, ordered XR- no fracture. Ordered labs- cbc with elevated WBC 13, no signs of infection, afebrile, no respiratory changes, no changes in mentation. VS stable. CMP without electrolyte abnormalities. Review of Systems Constitutional: Denies body ache(s), Denies chills and Denies fever(s) Eyes: Denies blurry vision Denies dizziness and Denies dry mouth Cardiovascular: Denies chest pain and Denies dyspnea on exertion Respiratory: Denies cough and Denies dyspnea on exertion Gastrointestinal: Denies abdominal pain Musculoskeletal: Denies back pain and Denies arthralgias Skin/Breast: Denies rash Denies dizziness Psychiatric: Denies anxiety, Denies depression, Denies visual hallucinations, Denies homicidal ideation and Denies suicidal ideation Mental Status Exam Mental Status Exam Narrative: Appearance:wearing hospital gown, fair hygiene, in NAD Behavior: cooperative Psychomotor: no agitation or retardation noted Speech: mostly clear, normal rate/rhythm/volume, spontaneous TP: mostly linear TC: asking for his and son Mood: okay Affect: congruent, non labile SI: denies HI: denies VH/AH: does not appear at this time Delusions: confabulation, along with more delusional thinking. insight/judgment: impaired x 2 memory/cog: alert, oriented only to self. severely impaired. Diagnostics Vital Signs (24Hr): Vital Signs - 24 hr 03/04/25 19:42 03/05/25 08:20 Temperature 97.5 F 98.8 F Pulse Rate 104 H 104 H Respiratory Rate 16 16 Blood Pressure 144/103 H 126/74 Pulse Oximetry 95 95 Oxygen Delivery Method Room Air Room Air BMI result Body Mass Index 19.3 Labs 03/06/25 07:33 03/06/25 07:33 Medications Medications Current Medications Acetaminophen (Acetaminophen 325 Mg Tablet) 650 mg PO Q6H PRN PRN Reason: Headache/Pain, Scale 1-10 Last Admin: 03/02/25 20:17 Dose: 650 mg Al Hydroxide/Mg Hydroxide (Magnesium Hydrox/Alum Hydrox 30 Ml Oral.Susp) 30 ml PO Q6H PRN PRN Reason: Heartburn/Nausea Aspirin (Aspirin 81 Mg Tab.Chew) 81 mg PO DAILY COUNTS [facility]CLUDE 234 BEDS AT THE [facility] Last Admin: 03/04/25 10:03 Dose: 81 mg Atorvastatin Calcium (Atorvastatin Calcium 80 Mg Tablet) 80 mg PO BEDTIME COUNTS INCLUDE 234 BEDS AT THE [facility] Last Admin: 03/04/25 20:34 Dose: 80 mg Calcium Polycarbophil (Calcium Polycarbophil Tablet) 1 tab PO DAILY COUNTS INCLUDE 234 BEDS AT THE [facility] Last Admin: 03/04/25 10:02 Dose: 1 tab Clonazepam (Clonazepam Odt 0.125 Mg Tab.Rapdis) 0.25 mg PO TID COUNTS INCLUDE 234 BEDS AT THE [facility] Last Admin: 03/04/25 20:33 Dose: 0.25 mg Clopidogrel Bisulfate (Clopidogrel Bisulfate 75 Mg Tablet) 75 mg PO DAILY COUNTS INCLUDE 234 BEDS AT THE [facility] Last Admin: 03/04/25 10:02 Dose: 75 mg Cyanocobalamin (Cyanocobalamin (Vitamin B-12) 1,000 Mcg Tablet) 1,000 mcg PO DAILY COUNTS INCLUDE 234 BEDS AT THE [facility] Last Admin: 03/04/25 10:03 Dose: 1,000 mcg Finasteride (Finasteride 5 Mg Tablet) 5 mg PO DAILY COUNTS INCLUDE 234 BEDS AT THE [facility] Last Admin: 03/04/25 10:00 Dose: 5 mg Lamotrigine (Lamotrigine 100 Mg Tablet) 100 mg PO BID COUNTS INCLUDE 234 BEDS AT THE [facility] Last Admin: 03/04/25 20:33 Dose: 100 mg Lamotrigine (Lamotrigine 25 Mg Tablet) 50 mg PO BID COUNTS INCLUDE 234 BEDS AT THE [facility] Last Admin: 03/04/25 20:33 Dose: 50 mg Magnesium Hydroxide (Milk Of Magnesia 30 Ml Oral.Susp) 30 ml PO DAILY PRN PRN Reason: Constipation Nicotine (Nicotine 21 Mg Patch.Td24) 21 mg TRANSDERMA DAILY PRN PRN Reason: nicotine craving Nicotine Polacrilex (Nicotine Polacrilex 2 Mg Gum) 2 mg BUCCAL Q2H PRN PRN Reason: Nicotine Cravings Olanzapine (Olanzapine Odt 10 Mg Tab.Rapdis) 5 mg TRANSLINGU Q6H PRN PRN Reason: agitation or psychosis Last Admin: 03/04/25 22:22 Dose: 5 mg Olanzapine (Olanzapine 5 Mg Tablet) 7.5 mg PO BID COUNTS INCLUDE 234 BEDS AT THE [facility] Last Admin: 03/04/25 19:11 Dose: 5 mg Oxcarbazepine (Oxcarbazepine 300 Mg Tablet) 300 mg PO BID COUNTS INCLUDE 234 BEDS AT THE [facility] Last Admin: 03/04/25 20:34 Dose: 300 mg Sertraline HCl (Sertraline Hcl 50 Mg Tablet) 50 mg PO BEDTIME [facility] Last Admin: 03/04/25 20:34 Dose: 50 mg Thiamine HCl (Thiamine Hcl 100 Mg Tablet) 100 mg PO DAILY COUNTS INCLUDE 234 BEDS AT THE [facility] Last Admin: 03/04/25 10:03 Dose: 100 mg Trazodone HCl (Trazodone Hcl 100 Mg Tablet) 100 mg PO BEDTIME COUNTS INCLUDE 234 BEDS AT THE [facility] Last Admin: 03/04/25 20:34 Dose: 100 mg Trazodone HCl (Trazodone Hcl 50 Mg Tablet) 50 mg PO BEDTIME MRX1 PRN PRN Reason: Insomnia Last Admin: 03/04/25 22:22 Dose: 50 mg Allergies Allergies Allergy/AdvReac Type Severity Reaction Status Date / Time lisinopril Allergy Mild Unknown Verified 02/22/25 11:20 codeine Allergy Unknown Verified 02/22/25 11:20 Assessment & Plan Assessment & Plan (1) Major neurocognitive disorder due to another medical condition with behavioral disturbance: Status: Acute Code(s): F02.818 - Dementia in other diseases classified elsewhere, unspecified severity, with other behavioral disturbance Plan Mr. 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 medical work up is unremarkable. He was started on ceftin for UTI- however, UA has leukocytosis but no nitrites nor bacteria (will stop ceftin). recommend increasing trileptal to 300mg po BID, continue olanzapine 7.5mg po BID. Continue trazodone 100mg po qhs. Will restart clonazepam 0.25mg po BID. Will monitor oversedation. PLAN 02/28 increase trileptal to 300mg po BID, continue olanzapine 7.5mg po BID, start/restart clonazepam 0.25mg po BID. Monitor over sedation. Continue Sertraline 50mg po daily. 03/04 continue increased clonazepam to 0.25mg po TID, trileptal 300mg po BID, olanzapine 7.5mg po BID. trazodone 100mg po qhs and sertraline 50mg po daily. 03/05 continue tx. Reason for continued inpatient stay Substantial Risk for: inability to function Time Spent With Patient Time: Total time managing care of this patient today ____ minutes.
[2025-03-05 10:19] VITALS: BP 115/65; PULSE 75; RESP 16; TEMP 37.1; O2SAT 96
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
--- NOTE | 2025-03-05 11:52 | MHC.CLN ---
NUTRITION SPOKE WITH PATIENT AT LUNCH MEAL TODAY. WANTED TO GO HOME AND DID NOT EAT LUNCH. DIET=REGULAR. USUAL DAILY MEAL PATTERN IS THAT TAKES 2 MEALS 75-100%. BMI=19.3. PATIENT IS THIN BUT DOES NOT APPEAR TO BE MALNOURISHED. NO NUTRITIONAL SUPPLEMENT AT THIS TIME. RD TO MONITOR WEEKLY.
[2025-03-05 12:11] VITALS: BMI 19.3
[2025-03-05] MEDS: OLANZapine ODT 10 MG TAB.RAPDIS TRANSLINGU (12:13)
[2025-03-05] MEDS: OLANZapine 7.5 MG TABLET PO ×2 (15:52→20:32)
[2025-03-05 20:00] VITALS: BP 120/83; PULSE 90; TEMP 36.3; O2SAT 94
[2025-03-06 07:00] VITALS: BMI 19.6
[2025-03-06 07:46] LABS: MANUAL DIFF FLAG NO
[2025-03-06 07:49] LABS: Hematocrit 33.1 % (42.0-52.0); Hemoglobin 11.5 g/dl (14.0-18.0); Imm Gran Abs Auto 0.05 X10*3/uL (0.00-0.03); Imm Gran Pct Auto 0.4 % (0.0-0.4); Lymphocytes Absolute Auto 3.0 X10*3/uL (1.2-4.9); Mean Corpuscular HGB Conc 34.7 g/dl (31.0-36.0); Mean Corpuscular Hemoglobin 31.5 pg (27.0-33.0); Mean Corpuscular Volume 90.7 fL (80.0-98.0); NRBC Abs Auto 0.000 X10*3/uL (0.0-0.012); NRBC Pct Auto 0.0 /100WBC (0.0-0.2); Platelet Count 447 X10*3/uL (160-400); Red Blood Count 3.65 X10*6/uL (4.60-5.80); White Blood Count 13.9 X10*3/uL (4.8-10.8)
[2025-03-06 08:03] VITALS: BP 120/85; PULSE 92; RESP 18; TEMP 36.3; O2SAT 95
[2025-03-06 08:13] LABS: Alanine Aminotransferase 25 U/L (0-40); Albumin Level 4.6 g/dL (3.5-5.0); Alkaline Phosphatase 105 U/L (39-117); Anion Gap 13 (12-20); Aspartate Amino Transferase 31 U/L (5-37); Blood Urea Nitrogen 21 mg/dL (9-16); Calcium 9.9 mg/dL (8.4-10.2); Carbon Dioxide 25 mmol/L (22-29); Chloride 107 mmol/L (96-108); Creatinine Clr Calc Pharmacy 59.9; Estimated Glomerular Filt Rate > 60; Potassium 3.8 mmol/L (3.3-5.1); Sodium 141 mmol/L (135-145); Total Protein 7.2 g/dL (6.5-8.0)
[2025-03-06] MEDS: calcium polycarbophiL TABLET 1 TAB PO (08:17)
[2025-03-06] MEDS: OLANZapine 7.5 MG TABLET PO ×3 (08:18→20:47)
[2025-03-06] MEDS: clonazePAM ODT 0.125 MG TAB.RAPDIS 0.25 MG PO ×3 (08:18→20:48)
--- NOTE | 2025-03-06 09:49 | PC.NURSE ---
Notified Aidee Lucio NP of increased WBC and platelet count via [employer].
--- NOTE | 2025-03-06 13:41 | PC.NURSE ---
1:1 observed notified this insurance writer that patient has periods of apnea at times. This insurance writer did not witness any periods of apnea however Aidee Lucio NP notified.
--- NOTE | 2025-03-06 16:37 | HO.PSYCHPN ---
Subjective Subjective Date of Service: 03/06/25 Reason For Visit: increased paranoid Subjective Notes: Conditional Voluntary Interim History: Pt slept better last night. Less combative behaviors. Pt not oriented to situation. He slept most of the morning. He is taking medications as prescribed. Not oriented to situation, place, month or year. We had family meeting discussed medication changes, recommended considering placement but family wants to try again to bring back home after med changes. VS stable. Review of Systems Constitutional: Denies body ache(s), Denies chills and Denies fever(s) Eyes: Denies blurry vision Denies dizziness and Denies dry mouth Cardiovascular: Denies chest pain and Denies dyspnea on exertion Respiratory: Denies cough and Denies dyspnea on exertion Gastrointestinal: Denies abdominal pain Musculoskeletal: Denies back pain and Denies arthralgias Skin/Breast: Denies rash Denies dizziness Psychiatric: Denies anxiety, Denies depression, Denies visual hallucinations, Denies homicidal ideation and Denies suicidal ideation Mental Status Exam Mental Status Exam Narrative: Appearance:wearing hospital gown, fair hygiene, in NAD Behavior: cooperative Psychomotor: no agitation or retardation noted Speech: mostly clear, normal rate/rhythm/volume, spontaneous TP: mostly linear TC: asking for his and son Mood: okay Affect: congruent, non labile SI: denies HI: denies VH/AH: does not appear at this time Delusions: confabulation, along with more delusional thinking. insight/judgment: impaired x 2 memory/cog: alert, oriented only to self. severely impaired. Diagnostics Vital Signs (24Hr): Vital Signs - 24 hr 03/05/25 20:00 03/06/25 08:03 Temperature 97.4 F 97.3 F Pulse Rate 90 92 Respiratory Rate 18 Blood Pressure 120/83 120/85 Pulse Oximetry 94 95 Oxygen Delivery Method Room Air Room Air BMI result Body Mass Index 19.6 Labs 03/06/25 07:33 03/06/25 07:33 Labs: Laboratory Results - last 48 hr 03/06/25 07:33 WBC 13.9 H RBC 3.65 L Hgb 11.5 L Hct 33.1 L MCV 90.7 MCH 31.5 MCHC 34.7 RDW 16.9 H Plt Count 447 H D MPV 10.0 Immature Gran % (Auto) 0.4 Neut % (Auto) 68.8 Lymph % (Auto) 21.7 Payne % (Auto) 8.0 Eos % (Auto) 0.8 Baso % (Auto) 0.3 Lymph # (Auto) 3.0 Payne # (Auto) 1.1 Eos # (Auto) 0.1 Baso # (Auto) 0.0 Abs Immat Gran (auto) 0.05 H Absolute Neuts (auto) 9.6 H Absolute Nucleated RBC 0.000 Nucleated RBC % (auto) 0.0 Sodium 141 Potassium 3.8 Chloride 107 Carbon Dioxide 25 Anion Gap 13 BUN 21 H Creatinine 1.12 Estim Creat Clear Calc 59.9 Estimated GFR > 60 Random Glucose 101 Calcium 9.9 D Total Bilirubin 0.5 AST 31 ALT 25 Alkaline Phosphatase 105 Total Protein 7.2 Albumin 4.6 Imaging Radiology Impressions: ITS Impressions Wrist X-Ray 03/05/25 10:28 IMPRESSION: Nonspecific cystic like lucency is present in the radial half of the lunate. It has nonaggressive features. Electronically signed by: Rell Fernando MD 03/05/2025 10:42 AM EDT Medications Medications Current Medications Acetaminophen (Acetaminophen 325 Mg Tablet) 650 mg PO Q6H PRN PRN Reason: Headache/Pain, Scale 1-10 Last Admin: 03/06/25 04:18 Dose: 650 mg Al Hydroxide/Mg Hydroxide (Magnesium Hydrox/Alum Hydrox 30 Ml Oral.Susp) 30 ml PO Q6H PRN PRN Reason: Heartburn/Nausea Aspirin (Aspirin 81 Mg Tab.Chew) 81 mg PO DAILY [facility] Last Admin: 03/06/25 08:18 Dose: 81 mg Atorvastatin Calcium (Atorvastatin Calcium 80 Mg Tablet) 80 mg PO BEDTIME [facility] Last Admin: 03/05/25 20:32 Dose: 80 mg Calcium Polycarbophil (Calcium Polycarbophil Tablet) 1 tab PO DAILY [facility] Last Admin: 03/06/25 08:17 Dose: 1 tab Clonazepam (Clonazepam Odt 0.125 Mg Tab.Rapdis) 0.25 mg PO TID [facility] Last Admin: 03/06/25 14:57 Dose: 0.25 mg Clopidogrel Bisulfate (Clopidogrel Bisulfate 75 Mg Tablet) 75 mg PO DAILY [facility] Last Admin: 03/06/25 08:18 Dose: 75 mg Cyanocobalamin (Cyanocobalamin (Vitamin B-12) 1,000 Mcg Tablet) 1,000 mcg PO DAILY [facility] Last Admin: 03/06/25 08:18 Dose: 1,000 mcg Finasteride (Finasteride 5 Mg Tablet) 5 mg PO DAILY [facility] Last Admin: 03/06/25 08:17 Dose: 5 mg Lamotrigine (Lamotrigine 100 Mg Tablet) 100 mg PO BID [facility] Last Admin: 03/06/25 08:18 Dose: 100 mg Lamotrigine (Lamotrigine 25 Mg Tablet) 50 mg PO BID [facility] Last Admin: 03/06/25 08:18 Dose: 50 mg Magnesium Hydroxide (Milk Of Magnesia 30 Ml Oral.Susp) 30 ml PO DAILY PRN PRN Reason: Constipation Nicotine (Nicotine 21 Mg Patch.Td24) 21 mg TRANSDERMA DAILY PRN PRN Reason: nicotine craving Nicotine Polacrilex (Nicotine Polacrilex 2 Mg Gum) 2 mg BUCCAL Q2H PRN PRN Reason: Nicotine Cravings Olanzapine (Olanzapine 7.5 Mg Tablet) 7.5 mg PO TID [facility] Last Admin: 03/06/25 14:57 Dose: 7.5 mg Olanzapine (Olanzapine Odt 10 Mg Tab.Rapdis) 10 mg TRANSLINGU Q6H PRN PRN Reason: agitation or psychosis Last Admin: 03/05/25 12:13 Dose: 10 mg Oxcarbazepine (Oxcarbazepine 300 Mg Tablet) 600 mg PO BID [facility] Last Admin: 03/06/25 08:18 Dose: 600 mg Sertraline HCl (Sertraline Hcl 50 Mg Tablet) 50 mg PO BEDTIME [facility] Last Admin: 03/05/25 20:31 Dose: 50 mg Thiamine HCl (Thiamine Hcl 100 Mg Tablet) 100 mg PO DAILY [facility] Last Admin: 03/06/25 08:18 Dose: 100 mg Trazodone HCl (Trazodone Hcl 50 Mg Tablet) 50 mg PO BEDTIME MRX1 PRN PRN Reason: Insomnia Last Admin: 03/04/25 22:22 Dose: 50 mg Trazodone HCl (Trazodone Hcl 50 Mg Tablet) 150 mg PO BEDTIME [facility] Last Admin: 03/05/25 20:32 Dose: 150 mg Allergies Allergies Allergy/AdvReac Type Severity Reaction Status Date / Time lisinopril Allergy Mild Unknown Verified 02/22/25 11:20 codeine Allergy Unknown Verified 02/22/25 11:20 Assessment & Plan Assessment & Plan (1) Major neurocognitive disorder due to another medical condition with behavioral disturbance: Status: Acute Code(s): F02.818 - Dementia in other diseases classified elsewhere, unspecified severity, with other behavioral disturbance Plan Mr. 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 medical work up is unremarkable. He was started on ceftin for UTI- however, UA has leukocytosis but no nitrites nor bacteria (will stop ceftin). recommend increasing trileptal to 300mg po BID, continue olanzapine 7.5mg po BID. Continue trazodone 100mg po qhs. Will restart clonazepam 0.25mg po BID. Will monitor oversedation. PLAN 02/28 increase trileptal to 300mg po BID, continue olanzapine 7.5mg po BID, start/restart clonazepam 0.25mg po BID. Monitor over sedation. Continue Sertraline 50mg po daily. 03/04 continue increased clonazepam to 0.25mg po TID, trileptal 300mg po BID, olanzapine 7.5mg po BID. trazodone 100mg po qhs and sertraline 50mg po daily. 03/05 continue tx. 03/06 family meeting, plan to continue titrating medications and assess for therapeutic effect. Reason for continued inpatient stay Substantial Risk for: inability to function Time Spent With Patient Time: Total time managing care of this patient today ____ minutes.
--- NOTE | 2025-03-06 18:08 | PC.ADMIT ---
Patient is a 79 y.o. male. Transferred [facility] initially from [facility]. Admitted for increased behaviors of agitation combative, unspecified Dementia and multiple falls. Patient is alert, oriented to self, month and year. Pleasant and calm on approach. Cooperative with vitals and skin check. He has multiple bruising, scratches and scabbed areas on lower and upper extremities. He has two skin tears, one on left hand 4x2.5.0.1 and one on the right hand 1,8x0,8x0.1. New order for the wound care. F/C d/t urinary retention. IV site in left lower arm. No known allergies. Pt thinks he came from home where he resides with his . Upon arrival to the unit his vitals are as follow: 97.7, 78, 101/65, O2sat 96% on RA. WT 65.8 KG. Said he has some pain in left arm but refused offered Tylenol. Aidee Jackson. aware. Pt wears both upper and lower dentures. Oriented to the unit, provided toiletries, menus completed. Signed release of info for his Grecia Alcantara and statement reg. valuables. Pt is 12 B status.
[2025-03-06 20:00] VITALS: BP 124/81; PULSE 58; RESP 16; TEMP 36.8; O2SAT 94
[2025-03-07] MEDS: OLANZapine ODT 10 MG TAB.RAPDIS TRANSLINGU (00:02)
[2025-03-07 09:14] VITALS: BP 101/68; PULSE 77; RESP 14; TEMP 36.3; O2SAT 97
[2025-03-07] MEDS: calcium polycarbophiL TABLET 1 TAB PO (09:17)
[2025-03-07] MEDS: clonazePAM ODT 0.125 MG TAB.RAPDIS 0.25 MG PO ×2 (09:18→20:17)
[2025-03-07] MEDS: OLANZapine 7.5 MG TABLET PO ×3 (09:18→20:17)
--- NOTE | 2025-03-07 09:27 | HO.PSYCHPN ---
Subjective Subjective Date of Service: 03/07/25 Reason For Visit: increased paranoid Subjective Notes: Conditional Voluntary Healthcare Proxy: Yes Interim History: Pt slept through the night. He is not oriented to place, nor situation and this is his baseline. He continues on a one to one due to risk for falls. He is taking medications as prescribed. Mental Status Exam Mental Status Exam Narrative: Appearance:wearing hospital gown, fair hygiene, in NAD Behavior: cooperative Psychomotor: no agitation or retardation noted Speech: mostly clear, normal rate/rhythm/volume, spontaneous TP: mostly linear TC: asking for his and son Mood: okay Affect: congruent, non labile SI: denies HI: denies VH/AH: does not appear at this time Delusions: confabulation, along with more delusional thinking. insight/judgment: impaired x 2 memory/cog: alert, oriented only to self. severely impaired. Diagnostics Vital Signs (24Hr): Vital Signs - 24 hr 03/06/25 20:00 03/07/25 09:14 Temperature 98.2 F 97.3 F Pulse Rate 58 77 Respiratory Rate 16 14 Blood Pressure 124/81 101/68 Pulse Oximetry 94 97 Oxygen Delivery Method Room Air Room Air BMI result Body Mass Index 19.6 Labs 03/06/25 07:33 03/06/25 07:33 Labs: Laboratory Results - last 48 hr 03/06/25 07:33 WBC 13.9 H RBC 3.65 L Hgb 11.5 L Hct 33.1 L MCV 90.7 MCH 31.5 MCHC 34.7 RDW 16.9 H Plt Count 447 H D MPV 10.0 Immature Gran % (Auto) 0.4 Neut % (Auto) 68.8 Lymph % (Auto) 21.7 Wilcox % (Auto) 8.0 Eos % (Auto) 0.8 Baso % (Auto) 0.3 Lymph # (Auto) 3.0 Wilcox # (Auto) 1.1 Eos # (Auto) 0.1 Baso # (Auto) 0.0 Abs Immat Gran (auto) 0.05 H Absolute Neuts (auto) 9.6 H Absolute Nucleated RBC 0.000 Nucleated RBC % (auto) 0.0 Sodium 141 Potassium 3.8 Chloride 107 Carbon Dioxide 25 Anion Gap 13 BUN 21 H Creatinine 1.12 Estim Creat Clear Calc 59.9 Estimated GFR > 60 Random Glucose 101 Calcium 9.9 D Total Bilirubin 0.5 AST 31 ALT 25 Alkaline Phosphatase 105 Total Protein 7.2 Albumin 4.6 Imaging Radiology Impressions: ITS Impressions Wrist X-Ray 03/05/25 10:28 IMPRESSION: Nonspecific cystic like lucency is present in the radial half of the lunate. It has nonaggressive features. Electronically signed by: Rell Fernando MD 03/05/2025 10:42 AM EDT Medications Medications Current Medications Acetaminophen (Acetaminophen 325 Mg Tablet) 650 mg PO Q6H PRN PRN Reason: Headache/Pain, Scale 1-10 Last Admin: 03/06/25 04:18 Dose: 650 mg Al Hydroxide/Mg Hydroxide (Magnesium Hydrox/Alum Hydrox 30 Ml Oral.Susp) 30 ml PO Q6H PRN PRN Reason: Heartburn/Nausea Aspirin (Aspirin 81 Mg Tab.Chew) 81 mg PO DAILY [facility] Last Admin: 03/07/25 09:17 Dose: 81 mg Atorvastatin Calcium (Atorvastatin Calcium 80 Mg Tablet) 80 mg PO BEDTIME [facility] Last Admin: 03/06/25 20:47 Dose: 80 mg Calcium Polycarbophil (Calcium Polycarbophil Tablet) 1 tab PO DAILY [facility] Last Admin: 03/07/25 09:17 Dose: 1 tab Clonazepam (Clonazepam Odt 0.125 Mg Tab.Rapdis) 0.25 mg PO TID [facility] Last Admin: 03/07/25 09:18 Dose: 0.25 mg Clopidogrel Bisulfate (Clopidogrel Bisulfate 75 Mg Tablet) 75 mg PO DAILY [facility] Last Admin: 03/07/25 09:18 Dose: 75 mg Cyanocobalamin (Cyanocobalamin (Vitamin B-12) 1,000 Mcg Tablet) 1,000 mcg PO DAILY [facility] Last Admin: 03/07/25 09:17 Dose: 1,000 mcg Finasteride (Finasteride 5 Mg Tablet) 5 mg PO DAILY [facility] Last Admin: 03/07/25 09:18 Dose: 5 mg Lamotrigine (Lamotrigine 100 Mg Tablet) 100 mg PO BID [facility] Last Admin: 03/07/25 09:17 Dose: 100 mg Lamotrigine (Lamotrigine 25 Mg Tablet) 50 mg PO BID [facility] Last Admin: 03/07/25 09:18 Dose: 50 mg Magnesium Hydroxide (Milk Of Magnesia 30 Ml Oral.Susp) 30 ml PO DAILY PRN PRN Reason: Constipation Nicotine (Nicotine 21 Mg Patch.Td24) 21 mg TRANSDERMA DAILY PRN PRN Reason: nicotine craving Nicotine Polacrilex (Nicotine Polacrilex 2 Mg Gum) 2 mg BUCCAL Q2H PRN PRN Reason: Nicotine Cravings Olanzapine (Olanzapine 7.5 Mg Tablet) 7.5 mg PO TID [facility] Last Admin: 03/07/25 09:18 Dose: 7.5 mg Olanzapine (Olanzapine Odt 10 Mg Tab.Rapdis) 10 mg TRANSLINGU Q6H PRN PRN Reason: agitation or psychosis Last Admin: 03/07/25 00:02 Dose: 10 mg Oxcarbazepine (Oxcarbazepine 300 Mg Tablet) 600 mg PO BID [facility] Last Admin: 03/07/25 09:17 Dose: 600 mg Sertraline HCl (Sertraline Hcl 50 Mg Tablet) 50 mg PO BEDTIME [facility] Last Admin: 03/06/25 20:48 Dose: 50 mg Thiamine HCl (Thiamine Hcl 100 Mg Tablet) 100 mg PO DAILY [facility] Last Admin: 03/07/25 09:17 Dose: 100 mg Trazodone HCl (Trazodone Hcl 50 Mg Tablet) 50 mg PO BEDTIME MRX1 PRN PRN Reason: Insomnia Last Admin: 03/07/25 00:03 Dose: 50 mg Trazodone HCl (Trazodone Hcl 50 Mg Tablet) 150 mg PO BEDTIME [facility] Last Admin: 03/06/25 20:47 Dose: 150 mg Allergies Allergies Allergy/AdvReac Type Severity Reaction Status Date / Time lisinopril Allergy Mild Unknown Verified 02/22/25 11:20 codeine Allergy Unknown Verified 02/22/25 11:20 Assessment & Plan Assessment & Plan (1) Major neurocognitive disorder due to another medical condition with behavioral disturbance: Status: Acute Code(s): F02.818 - Dementia in other diseases classified elsewhere, unspecified severity, with other behavioral disturbance Plan Mr. 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 medical work up is unremarkable. He was started on ceftin for UTI- however, UA has leukocytosis but no nitrites nor bacteria (will stop ceftin). recommend increasing trileptal to 300mg po BID, continue olanzapine 7.5mg po BID. Continue trazodone 100mg po qhs. Will restart clonazepam 0.25mg po BID. Will monitor oversedation. PLAN 02/28 increase trileptal to 300mg po BID, continue olanzapine 7.5mg po BID, start/restart clonazepam 0.25mg po BID. Monitor over sedation. Continue Sertraline 50mg po daily. 03/04 continue increased clonazepam to 0.25mg po TID, trileptal 300mg po BID, olanzapine 7.5mg po BID. trazodone 100mg po qhs and sertraline 50mg po daily. 03/05 continue tx. 03/06 family meeting, plan to continue titrating medications and assess for therapeutic effect. 03/07 continue tx. Reason for continued inpatient stay Substantial Risk for: inability to function Time Spent With Patient Time: Total time managing care of this patient today ____ minutes.
[2025-03-07 20:00] VITALS: BP 147/70; PULSE 85; RESP 18; TEMP 36.7; O2SAT 95
[2025-03-08] MEDS: OLANZapine ODT 10 MG TAB.RAPDIS TRANSLINGU (00:07)
[2025-03-08 08:00] VITALS: BP 118/72; PULSE 86; RESP 16; TEMP 36.3; O2SAT 97
[2025-03-08] MEDS: clonazePAM ODT 0.125 MG TAB.RAPDIS 0.25 MG PO ×3 (08:04→20:38)
[2025-03-08] MEDS: OLANZapine 7.5 MG TABLET PO ×3 (08:04→20:39)
[2025-03-08] MEDS: calcium polycarbophiL TABLET 1 TAB PO (08:04)
[2025-03-08 11:30] VITALS: BP 126/79
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
--- NOTE | 2025-03-08 16:10 | HO.BHRESTREX ---
Behavioral Restraint Exam Behavioral Health Restraint Exam Type of Restraint: Physical Hold Reason for Restraint: Substantial Risk and Substantial Risk of Harm to Others Medical Concerns for Restraint: No medical concerns, pt w/o acute inj / no noted resp/VS abnormalities Behavioral Assessment / Plan: Concerns / further recommendations, explain below: Comment: Not sure trigger but pt continues to ramp up with destructive behavior
[2025-03-08] MEDS: diazePAM 10 MG/2 ML CARTRIDGE IM (17:01)
--- NOTE | 2025-03-08 17:10 | HO.PSYEVENT ---
Event Note Date of Service: 03/08/25 Psych Restraint Event Note: pt again got agitated hitting glass, trying to break, tried to hit and swung at sitter, swung at nurse; unable to be redirected. Pt accepted IM Haldol 5mg and Diazepam 10mg Time Spent With Patient Time: Total time managing care of this patient today ____ minutes.
--- NOTE | 2025-03-08 17:10 | HO.BHRESTREX ---
Behavioral Restraint Exam Behavioral Health Restraint Exam Type of Restraint: Medication Reason for Restraint: Substantial Risk and Substantial Risk of Harm to Others Medical Concerns for Restraint: No medical concerns, pt w/o acute inj / no noted resp/VS abnormalities Behavioral Assessment / Plan: Concerns / further recommendations, explain below: Comment: again, pt will not engage and not sure what is trigger (other than delusional thinking). May need to change med regimen.
--- NOTE | 2025-03-08 17:42 | HO.PSYCHPN ---
Subjective Subjective Date of Service: 03/08/25 Reason For Visit: increased paranoid Interim History: Met with patient; discussed with team; reviewed chart Patient aggressive and agitated throughout the day, trying to use furniture to break through the glass, swinging at and trying to hit staff, required to restraints. Patient very difficult to redirect and would not discuss with typewriter ribbon winder. Mental Status Exam Mental Status Exam Narrative: Pt is alert and oriented; behavior is aggressive, dysregulated, trying to elope by breaking through glass of unit; aggressive towards staff, trying to hit; dressed in pajamas with unkempt hair; mood is described as agitated and affect congruent, intense; eye contact appropriate; Speech is normal rate, volume and prosody and not pressured; intermittent but significant psychomotor agitation present; thought process is goal directed; Thought content is on paranoid ideations and wanting to leave, see his ; unable to assess SI/HI/AVH. Patients insight and judgment impaired Diagnostics Vital Signs (24Hr): Vital Signs - 24 hr 03/07/25 20:00 03/08/25 08:00 03/08/25 11:30 Temperature 98.1 F 97.3 F Pulse Rate 85 86 Respiratory Rate 18 16 Blood Pressure 147/70 H 118/72 126/79 Pulse Oximetry 95 97 Oxygen Delivery Method Room Air Room Air BMI result Body Mass Index 19.6 Labs 03/06/25 07:33 03/06/25 07:33 Imaging Radiology Impressions: ITS Impressions Wrist X-Ray 03/05/25 10:28 IMPRESSION: Nonspecific cystic like lucency is present in the radial half of the lunate. It has nonaggressive features. Electronically signed by: Rell Fernando MD 03/05/2025 10:42 AM EDT Medications Medications Current Medications Acetaminophen (Acetaminophen 325 Mg Tablet) 650 mg PO Q6H PRN PRN Reason: Headache/Pain, Scale 1-10 Last Admin: 03/06/25 04:18 Dose: 650 mg Al Hydroxide/Mg Hydroxide (Magnesium Hydrox/Alum Hydrox 30 Ml Oral.Susp) 30 ml PO Q6H PRN PRN Reason: Heartburn/Nausea Aspirin (Aspirin 81 Mg Tab.Chew) 81 mg PO DAILY [facility] Last Admin: 03/08/25 08:04 Dose: 81 mg Atorvastatin Calcium (Atorvastatin Calcium 80 Mg Tablet) 80 mg PO BEDTIME [facility] Last Admin: 03/07/25 20:17 Dose: 80 mg Calcium Polycarbophil (Calcium Polycarbophil Tablet) 1 tab PO DAILY [facility] Last Admin: 03/08/25 08:04 Dose: 1 tab Clonazepam (Clonazepam Odt 0.125 Mg Tab.Rapdis) 0.25 mg PO TID [facility] Last Admin: 03/08/25 16:03 Dose: 0.25 mg Clopidogrel Bisulfate (Clopidogrel Bisulfate 75 Mg Tablet) 75 mg PO DAILY [facility] Last Admin: 03/08/25 08:04 Dose: 75 mg Cyanocobalamin (Cyanocobalamin (Vitamin B-12) 1,000 Mcg Tablet) 1,000 mcg PO DAILY [facility] Last Admin: 03/08/25 08:04 Dose: 1,000 mcg Finasteride (Finasteride 5 Mg Tablet) 5 mg PO DAILY [facility] Last Admin: 03/08/25 08:03 Dose: 5 mg Lamotrigine (Lamotrigine 100 Mg Tablet) 100 mg PO BID [facility] Last Admin: 03/08/25 08:04 Dose: 100 mg Lamotrigine (Lamotrigine 25 Mg Tablet) 50 mg PO BID [facility] Last Admin: 03/08/25 08:03 Dose: 50 mg Magnesium Hydroxide (Milk Of Magnesia 30 Ml Oral.Susp) 30 ml PO DAILY PRN PRN Reason: Constipation Nicotine (Nicotine 21 Mg Patch.Td24) 21 mg TRANSDERMA DAILY PRN PRN Reason: nicotine craving Nicotine Polacrilex (Nicotine Polacrilex 2 Mg Gum) 2 mg BUCCAL Q2H PRN PRN Reason: Nicotine Cravings Olanzapine (Olanzapine 7.5 Mg Tablet) 7.5 mg PO TID [facility] Last Admin: 03/08/25 16:03 Dose: 7.5 mg Olanzapine (Olanzapine Odt 10 Mg Tab.Rapdis) 10 mg TRANSLINGU Q6H PRN PRN Reason: agitation or psychosis Last Admin: 03/08/25 00:07 Dose: 10 mg Oxcarbazepine (Oxcarbazepine 300 Mg Tablet) 600 mg PO BID [facility] Last Admin: 03/08/25 08:04 Dose: 600 mg Sertraline HCl (Sertraline Hcl 50 Mg Tablet) 50 mg PO BEDTIME [facility] Last Admin: 03/07/25 20:17 Dose: 50 mg Thiamine HCl (Thiamine Hcl 100 Mg Tablet) 100 mg PO DAILY [facility] Last Admin: 03/08/25 08:03 Dose: 100 mg Trazodone HCl (Trazodone Hcl 50 Mg Tablet) 50 mg PO BEDTIME MRX1 PRN PRN Reason: Insomnia Last Admin: 03/08/25 00:07 Dose: 50 mg Trazodone HCl (Trazodone Hcl 50 Mg Tablet) 150 mg PO BEDTIME [facility] Last Admin: 03/07/25 20:16 Dose: 150 mg Trazodone HCl (Trazodone Hcl 50 Mg Tablet) 50 mg PO TID PRN PRN Reason: for breakthrough agitation Allergies Allergies Allergy/AdvReac Type Severity Reaction Status Date / Time lisinopril Allergy Mild Unknown Verified 02/22/25 11:20 codeine Allergy Unknown Verified 02/22/25 11:20 Assessment & Plan Assessment & Plan (1) Major neurocognitive disorder due to another medical condition with behavioral disturbance: Status: Acute Code(s): F02.818 - Dementia in other diseases classified elsewhere, unspecified severity, with other behavioral disturbance Plan Mr. 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 medical work up is unremarkable. He was started on ceftin for UTI- however, UA has leukocytosis but no nitrites nor bacteria (will stop ceftin). recommend increasing trileptal to 300mg po BID, continue olanzapine 7.5mg po BID. Continue trazodone 100mg po qhs. Will restart clonazepam 0.25mg po BID. Will monitor oversedation. PLAN 02/28 increase trileptal to 300mg po BID, continue olanzapine 7.5mg po BID, start/restart clonazepam 0.25mg po BID. Monitor over sedation. Continue Sertraline 50mg po daily. 03/04 continue increased clonazepam to 0.25mg po TID, trileptal 300mg po BID, olanzapine 7.5mg po BID. trazodone 100mg po qhs and sertraline 50mg po daily. 03/05 continue tx. 03/06 family meeting, plan to continue titrating medications and assess for therapeutic effect. 03/08 Patient aggressive and agitated throughout the day, trying to use furniture to break through the glass, swinging at and trying to hit staff, required to restraints. Patient very difficult to redirect and would not discuss with typewriter ribbon winder. -Zyprexa has not seem to help much; trazodone seems to be sedating so will make this a p.r.n. which can help limit the amount of antipsychotics patient gets Patient educated on: diagnosis Informed Consent: does not understand Reason for continued inpatient stay Substantial Risk for: harm to self, harm to others and inability to function Time Spent With Patient Time: Total time managing care of this patient today ____ minutes.
--- NOTE | 2025-03-08 18:06 | PC.NURSE ---
Pt aggressive, assaultive towards staff, trying to break his window and his bed. Pt unable to be redirected, food offered and declined, PO meds offered and pt took them. Pt shortly became assaultive again, once again unable to redirect pt, at this time Dr. Chowdary contacted and ordered IM medications. Pt received medications with security present, accepted medications with no incident. No staff or patient injury sustained. Pt bernie injections well.
[2025-03-08 20:00] VITALS: BP 115/61; PULSE 76; RESP 18; TEMP 36.7; O2SAT 95
[2025-03-09] MEDS: clonazePAM ODT 0.125 MG TAB.RAPDIS 0.25 MG PO ×2 (08:06→21:02)
[2025-03-09] MEDS: OLANZapine 7.5 MG TABLET PO ×2 (08:06→21:06)
[2025-03-09] MEDS: calcium polycarbophiL TABLET 1 TAB PO (08:07)
[2025-03-09 08:11] VITALS: BP 124/68; PULSE 76; RESP 16; TEMP 2.6; TEMP 36.7; O2SAT 100
--- NOTE | 2025-03-09 10:08 | PC.NURSE ---
Late entry: At approx 1540 pt began escalating looking for his wallet, phone and keys. Pt unable to be redirected, he pushed one of the chairs from the dining area full force into the door to the fresh air break patio, he then took another pts walker and verbalized his intention to throw it through the window to break the window. Pt charged the doors to the [place] to try and elope. Code assist was called and pt was escorted to his room with a physical hold. No injuries sustained by staff or patient. Dr. Chowdary aware and order for hold obtained.
--- NOTE | 2025-03-09 17:13 | P.PNPSI_ITS ---
Subjective Subjective Date of Service: 03/09/25 Reason For Visit: increased paranoid Interim History: Met with patient; discussed with team Patient again getting agitated though this time was a little more redirected. Refused medications. Told production underwriter that production underwriter is not a real doctor; says that he thinks the staff here are trying to kill him and wants the state police... Mental Status Exam Mental Status Exam Narrative: Pt is alert and oriented; behavior is aggressive, dysregulated, intermittently trying to elope by breaking through glass of unit; aggressive towards staff, trying to hit; dressed in pajamas with unkempt hair; mood is described as agitated and affect congruent, intense; eye contact appropriate; Speech is normal rate, volume and prosody and not pressured; intermittent but significant psychomotor agitation present; thought process is goal directed; Thought content is on paranoid ideations and wanting to leave, see his ; unable to assess SI/HI/AVH. Patients insight and judgment impaired Diagnostics Vital Signs (24Hr): Vital Signs - 24 hr 03/08/25 20:00 03/09/25 08:11 Temperature 98.1 F 36.7 F L Pulse Rate 76 76 Respiratory Rate 18 16 Blood Pressure 115/61 124/68 Pulse Oximetry 95 100 Oxygen Delivery Method Room Air Room Air BMI result Body Mass Index 19.6 Labs 03/06/25 07:33 03/06/25 07:33 Imaging Radiology Impressions: ITS Impressions Wrist X-Ray 03/05/25 10:28 IMPRESSION: Nonspecific cystic like lucency is present in the radial half of the lunate. It has nonaggressive features. Electronically signed by: Rell Fernando MD 03/05/2025 10:42 AM EDT Medications Medications Current Medications Acetaminophen (Acetaminophen 325 Mg Tablet) 650 mg PO Q6H PRN PRN Reason: Headache/Pain, Scale 1-10 Last Admin: 03/08/25 20:37 Dose: 650 mg Al Hydroxide/Mg Hydroxide (Magnesium Hydrox/Alum Hydrox 30 Ml Oral.Susp) 30 ml PO Q6H PRN PRN Reason: Heartburn/Nausea Aspirin (Aspirin 81 Mg Tab.Chew) 81 mg PO DAILY [facility] Last Admin: 03/09/25 08:07 Dose: 81 mg Atorvastatin Calcium (Atorvastatin Calcium 80 Mg Tablet) 80 mg PO BEDTIME [facility] Last Admin: 03/08/25 20:40 Dose: 80 mg Calcium Polycarbophil (Calcium Polycarbophil Tablet) 1 tab PO DAILY [facility] Last Admin: 03/09/25 08:07 Dose: 1 tab Clonazepam (Clonazepam Odt 0.125 Mg Tab.Rapdis) 0.25 mg PO TID [facility] Last Admin: 03/09/25 16:47 Dose: Not Given Clopidogrel Bisulfate (Clopidogrel Bisulfate 75 Mg Tablet) 75 mg PO DAILY [facility] Last Admin: 03/09/25 08:07 Dose: 75 mg Cyanocobalamin (Cyanocobalamin (Vitamin B-12) 1,000 Mcg Tablet) 1,000 mcg PO DAILY [facility] Last Admin: 03/09/25 08:07 Dose: 1,000 mcg Finasteride (Finasteride 5 Mg Tablet) 5 mg PO DAILY [facility] Last Admin: 03/09/25 08:07 Dose: 5 mg Lamotrigine (Lamotrigine 100 Mg Tablet) 100 mg PO BID [facility] Last Admin: 03/09/25 08:07 Dose: 100 mg Lamotrigine (Lamotrigine 25 Mg Tablet) 50 mg PO BID [facility] Last Admin: 03/09/25 08:08 Dose: 50 mg Magnesium Hydroxide (Milk Of Magnesia 30 Ml Oral.Susp) 30 ml PO DAILY PRN PRN Reason: Constipation Nicotine (Nicotine 21 Mg Patch.Td24) 21 mg TRANSDERMA DAILY PRN PRN Reason: nicotine craving Nicotine Polacrilex (Nicotine Polacrilex 2 Mg Gum) 2 mg BUCCAL Q2H PRN PRN Reason: Nicotine Cravings Olanzapine (Olanzapine 7.5 Mg Tablet) 7.5 mg PO TID [facility] Last Admin: 03/09/25 16:45 Dose: Not Given Olanzapine (Olanzapine Odt 10 Mg Tab.Rapdis) 10 mg TRANSLINGU Q6H PRN PRN Reason: agitation or psychosis Last Admin: 03/08/25 00:07 Dose: 10 mg Oxcarbazepine (Oxcarbazepine 300 Mg Tablet) 600 mg PO BID [facility] Last Admin: 03/09/25 08:07 Dose: 600 mg Sertraline HCl (Sertraline Hcl 50 Mg Tablet) 50 mg PO BEDTIME [facility] Last Admin: 03/08/25 20:40 Dose: 50 mg Thiamine HCl (Thiamine Hcl 100 Mg Tablet) 100 mg PO DAILY [facility] Last Admin: 03/09/25 08:07 Dose: 100 mg Trazodone HCl (Trazodone Hcl 50 Mg Tablet) 50 mg PO BEDTIME MRX1 PRN PRN Reason: Insomnia Last Admin: 03/08/25 00:07 Dose: 50 mg Trazodone HCl (Trazodone Hcl 50 Mg Tablet) 150 mg PO BEDTIME [facility] Last Admin: 03/08/25 20:39 Dose: 150 mg Trazodone HCl (Trazodone Hcl 50 Mg Tablet) 50 mg PO TID PRN PRN Reason: for breakthrough agitation Last Admin: 03/08/25 18:06 Dose: 50 mg Allergies Allergies Allergy/AdvReac Type Severity Reaction Status Date / Time lisinopril Allergy Mild Unknown Verified 02/22/25 11:20 codeine Allergy Unknown Verified 02/22/25 11:20 Assessment & Plan Assessment & Plan (1) Major neurocognitive disorder due to another medical condition with behavioral disturbance: Status: Acute Code(s): F02.818 - Dementia in other diseases classified elsewhere, unspecified severity, with other behavioral disturbance Plan Mr. 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 medical work up is unremarkable. He was started on ceftin for UTI- however, UA has leukocytosis but no nitrites nor bacteria (will stop ceftin). recommend increasing trileptal to 300mg po BID, continue olanzapine 7.5mg po BID. Continue trazodone 100mg po qhs. Will restart clonazepam 0.25mg po BID. Will monitor oversedation. PLAN 02/28 increase trileptal to 300mg po BID, continue olanzapine 7.5mg po BID, start/restart clonazepam 0.25mg po BID. Monitor over sedation. Continue Sertraline 50mg po daily. 03/04 continue increased clonazepam to 0.25mg po TID, trileptal 300mg po BID, olanzapine 7.5mg po BID. trazodone 100mg po qhs and sertraline 50mg po daily. 03/05 continue tx. 03/06 family meeting, plan to continue titrating medications and assess for therapeutic effect. 03/08 Patient aggressive and agitated throughout the day, trying to use furniture to break through the glass, swinging at and trying to hit staff, required to restraints. Patient very difficult to redirect and would not discuss with production underwriter. -Zyprexa has not seem to help much; trazodone seems to be sedating so will make this a p.r.n. which can help limit the amount of antipsychotics patient gets 03/09 Patient again getting agitated though this time was a little more redirected. Refused medications. Told production underwriter that production underwriter is not a real doctor; says that he thinks the staff here are trying to kill him and wants the state police... Patient educated on: diagnosis and medication risk/benefits Informed Consent: does not understand Reason for continued inpatient stay Substantial Risk for: harm to self, harm to others and inability to function Time Spent With Patient Time: Total time managing care of this patient today ____ minutes.
[2025-03-09 20:00] VITALS: BP 123/65; PULSE 74; RESP 16; TEMP 36.7; O2SAT 95
--- NOTE | 2025-03-10 07:45 | HO.PSYCHPN ---
Subjective Subjective Date of Service: 03/10/25 Reason For Visit: increased paranoid Subjective Notes: Conditional Voluntary Interim History: Pt slept most of the night. he was agitated last night, combative with care. He took medications as prescribed. over the weekend had two restraints on Monday. Somewhat agitated again Monday evening. Pt today reports he is doing well. He does not know where he is. Medication Compliance: Yes Review of Systems Constitutional: Denies body ache(s), Denies chills and Denies fever(s) Eyes: Denies blurry vision Denies dizziness and Denies dry mouth Cardiovascular: Denies chest pain and Denies dyspnea on exertion Respiratory: Denies cough and Denies dyspnea on exertion Gastrointestinal: Denies abdominal pain Musculoskeletal: Denies back pain and Denies arthralgias Skin/Breast: Denies rash Denies dizziness Psychiatric: Denies anxiety, Denies depression, Denies visual hallucinations, Denies homicidal ideation and Denies suicidal ideation Mental Status Exam Mental Status Exam Narrative: Appearance:wearing hospital gown, fair hygiene, in NAD Behavior: cooperative Psychomotor: no agitation or retardation noted Speech: mostly clear, normal rate/rhythm/volume, spontaneous TP: mostly linear TC: asking for his and son Mood: okay Affect: congruent, non labile SI: denies HI: denies VH/AH: does not appear at this time Delusions: confabulation, along with more delusional thinking. insight/judgment: impaired x 2 memory/cog: alert, oriented only to self. severely impaired. Diagnostics Vital Signs (24Hr): Vital Signs - 24 hr 03/09/25 08:11 03/09/25 20:00 Temperature 36.7 F L 98.1 F Pulse Rate 76 74 Respiratory Rate 16 16 Blood Pressure 124/68 123/65 Pulse Oximetry 100 95 Oxygen Delivery Method Room Air Room Air BMI result Body Mass Index 19.6 Labs 03/06/25 07:33 03/06/25 07:33 Imaging Radiology Impressions: ITS Impressions Wrist X-Ray 03/05/25 10:28 IMPRESSION: Nonspecific cystic like lucency is present in the radial half of the lunate. It has nonaggressive features. Electronically signed by: Rell Fernando MD 03/05/2025 10:42 AM EDT Medications Medications Current Medications Acetaminophen (Acetaminophen 325 Mg Tablet) 650 mg PO Q6H PRN PRN Reason: Headache/Pain, Scale 1-10 Last Admin: 03/08/25 20:37 Dose: 650 mg Al Hydroxide/Mg Hydroxide (Magnesium Hydrox/Alum Hydrox 30 Ml Oral.Susp) 30 ml PO Q6H PRN PRN Reason: Heartburn/Nausea Aspirin (Aspirin 81 Mg Tab.Chew) 81 mg PO DAILY [facility] Last Admin: 03/09/25 08:07 Dose: 81 mg Atorvastatin Calcium (Atorvastatin Calcium 80 Mg Tablet) 80 mg PO BEDTIME [facility] Last Admin: 03/09/25 21:06 Dose: 80 mg Calcium Polycarbophil (Calcium Polycarbophil Tablet) 1 tab PO DAILY [facility] Last Admin: 03/09/25 08:07 Dose: 1 tab Clonazepam (Clonazepam Odt 0.125 Mg Tab.Rapdis) 0.25 mg PO TID [facility] Last Admin: 03/09/25 21:02 Dose: 0.25 mg Clopidogrel Bisulfate (Clopidogrel Bisulfate 75 Mg Tablet) 75 mg PO DAILY [facility] Last Admin: 03/09/25 08:07 Dose: 75 mg Cyanocobalamin (Cyanocobalamin (Vitamin B-12) 1,000 Mcg Tablet) 1,000 mcg PO DAILY [facility] Last Admin: 03/09/25 08:07 Dose: 1,000 mcg Finasteride (Finasteride 5 Mg Tablet) 5 mg PO DAILY [facility] Last Admin: 03/09/25 08:07 Dose: 5 mg Lamotrigine (Lamotrigine 100 Mg Tablet) 100 mg PO BID [facility] Last Admin: 03/09/25 21:05 Dose: 100 mg Lamotrigine (Lamotrigine 25 Mg Tablet) 50 mg PO BID [facility] Last Admin: 03/09/25 21:03 Dose: 50 mg Magnesium Hydroxide (Milk Of Magnesia 30 Ml Oral.Susp) 30 ml PO DAILY PRN PRN Reason: Constipation Nicotine (Nicotine 21 Mg Patch.Td24) 21 mg TRANSDERMA DAILY PRN PRN Reason: nicotine craving Nicotine Polacrilex (Nicotine Polacrilex 2 Mg Gum) 2 mg BUCCAL Q2H PRN PRN Reason: Nicotine Cravings Olanzapine (Olanzapine 7.5 Mg Tablet) 7.5 mg PO TID [facility] Last Admin: 03/09/25 21:06 Dose: 7.5 mg Olanzapine (Olanzapine Odt 10 Mg Tab.Rapdis) 10 mg TRANSLINGU Q6H PRN PRN Reason: agitation or psychosis Last Admin: 03/08/25 00:07 Dose: 10 mg Oxcarbazepine (Oxcarbazepine 300 Mg Tablet) 600 mg PO BID [facility] Last Admin: 03/09/25 21:04 Dose: 600 mg Sertraline HCl (Sertraline Hcl 50 Mg Tablet) 50 mg PO BEDTIME [facility] Last Admin: 03/09/25 21:05 Dose: 50 mg Thiamine HCl (Thiamine Hcl 100 Mg Tablet) 100 mg PO DAILY [facility] Last Admin: 03/09/25 08:07 Dose: 100 mg Trazodone HCl (Trazodone Hcl 50 Mg Tablet) 50 mg PO BEDTIME MRX1 PRN PRN Reason: Insomnia Last Admin: 03/08/25 00:07 Dose: 50 mg Trazodone HCl (Trazodone Hcl 50 Mg Tablet) 150 mg PO BEDTIME [facility] Last Admin: 03/09/25 21:04 Dose: 150 mg Trazodone HCl (Trazodone Hcl 50 Mg Tablet) 50 mg PO TID PRN PRN Reason: for breakthrough agitation Last Admin: 03/08/25 18:06 Dose: 50 mg Allergies Allergies Allergy/AdvReac Type Severity Reaction Status Date / Time lisinopril Allergy Mild Unknown Verified 02/22/25 11:20 codeine Allergy Unknown Verified 02/22/25 11:20 Assessment & Plan Assessment & Plan (1) Major neurocognitive disorder due to another medical condition with behavioral disturbance: Status: Acute Code(s): F02.818 - Dementia in other diseases classified elsewhere, unspecified severity, with other behavioral disturbance Plan Mr. 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 medical work up is unremarkable. He was started on ceftin for UTI- however, UA has leukocytosis but no nitrites nor bacteria (will stop ceftin). recommend increasing trileptal to 300mg po BID, continue olanzapine 7.5mg po BID. Continue trazodone 100mg po qhs. Will restart clonazepam 0.25mg po BID. Will monitor oversedation. PLAN 02/28 increase trileptal to 300mg po BID, continue olanzapine 7.5mg po BID, start/restart clonazepam 0.25mg po BID. Monitor over sedation. Continue Sertraline 50mg po daily. 03/04 continue increased clonazepam to 0.25mg po TID, trileptal 300mg po BID, olanzapine 7.5mg po BID. trazodone 100mg po qhs and sertraline 50mg po daily. 03/05 continue tx. 03/06 family meeting, plan to continue titrating medications and assess for therapeutic effect. 03/07 continue tx. 03/10 switch clonazepam for diazepam. continue olanzapine and trileptal. Reason for continued inpatient stay Substantial Risk for: harm to others and inability to function Time Spent With Patient Time: Total time managing care of this patient today ____ minutes.
[2025-03-10 08:00] VITALS: BP 127/74; PULSE 64; RESP 18; TEMP 36.4; O2SAT 95
[2025-03-10] MEDS: calcium polycarbophiL TABLET 1 TAB PO (09:48)
[2025-03-10] MEDS: OLANZapine 7.5 MG TABLET PO ×2 (09:48→19:57)
[2025-03-10] MEDS: clonazePAM ODT 0.125 MG TAB.RAPDIS 0.25 MG PO (09:50)
[2025-03-10 20:00] VITALS: BP 129/65; PULSE 68; RESP 17; TEMP 36.6; O2SAT 95
[2025-03-11] MEDS: OLANZapine ODT 10 MG TAB.RAPDIS TRANSLINGU (00:12)
[2025-03-11 08:40] VITALS: BP 130/74; PULSE 91; RESP 17; TEMP 36.9; O2SAT 96
[2025-03-11] MEDS: calcium polycarbophiL TABLET 1 TAB PO (08:48)
[2025-03-11] MEDS: OLANZapine 7.5 MG TABLET PO ×3 (08:48→20:10)
--- NOTE | 2025-03-11 18:11 | HO.PSYCHPN ---
Subjective Subjective Date of Service: 03/11/25 Reason For Visit: increased paranoid Subjective Notes: Conditional Voluntary Interim History: Pt had difficulty sleeping. He was restless, not combative. He did take medications as prescribed. Today, he is calm, not oriented to situation. He reports he feels relaxed. He is smiling. denies any physical concerns. Diagnostics Vital Signs (24Hr): Vital Signs - 24 hr 03/10/25 20:00 03/11/25 08:40 Temperature 97.8 F 98.4 F Pulse Rate 68 91 Respiratory Rate 17 17 Blood Pressure 129/65 130/74 Pulse Oximetry 95 96 Oxygen Delivery Method Room Air Room Air BMI result Body Mass Index 19.6 Labs 03/06/25 07:33 03/06/25 07:33 Imaging Radiology Impressions: ITS Impressions Wrist X-Ray 03/05/25 10:28 IMPRESSION: Nonspecific cystic like lucency is present in the radial half of the lunate. It has nonaggressive features. Electronically signed by: Rell Fernando MD 03/05/2025 10:42 AM EDT Medications Medications Current Medications Acetaminophen (Acetaminophen 325 Mg Tablet) 650 mg PO Q6H PRN PRN Reason: Headache/Pain, Scale 1-10 Last Admin: 03/08/25 20:37 Dose: 650 mg Al Hydroxide/Mg Hydroxide (Magnesium Hydrox/Alum Hydrox 30 Ml Oral.Susp) 30 ml PO Q6H PRN PRN Reason: Heartburn/Nausea Aspirin (Aspirin 81 Mg Tab.Chew) 81 mg PO DAILY [facility] Last Admin: 03/11/25 08:46 Dose: 81 mg Atorvastatin Calcium (Atorvastatin Calcium 80 Mg Tablet) 80 mg PO BEDTIME [facility] Last Admin: 03/10/25 19:55 Dose: 80 mg Calcium Polycarbophil (Calcium Polycarbophil Tablet) 1 tab PO DAILY [facility] Last Admin: 03/11/25 08:48 Dose: 1 tab Clopidogrel Bisulfate (Clopidogrel Bisulfate 75 Mg Tablet) 75 mg PO DAILY [facility] Last Admin: 03/11/25 08:48 Dose: 75 mg Cyanocobalamin (Cyanocobalamin (Vitamin B-12) 1,000 Mcg Tablet) 1,000 mcg PO DAILY [facility] Last Admin: 03/11/25 08:46 Dose: 1,000 mcg Diazepam (Diazepam 5 Mg Tablet) 5 mg PO TID [facility] Last Admin: 03/11/25 14:13 Dose: 5 mg Finasteride (Finasteride 5 Mg Tablet) 5 mg PO DAILY [facility] Last Admin: 03/11/25 08:47 Dose: 5 mg Lamotrigine (Lamotrigine 100 Mg Tablet) 100 mg PO BID [facility] Last Admin: 03/11/25 08:48 Dose: 100 mg Lamotrigine (Lamotrigine 25 Mg Tablet) 50 mg PO BID [facility] Last Admin: 03/11/25 08:49 Dose: 50 mg Magnesium Hydroxide (Milk Of Magnesia 30 Ml Oral.Susp) 30 ml PO DAILY PRN PRN Reason: Constipation Nicotine (Nicotine 21 Mg Patch.Td24) 21 mg TRANSDERMA DAILY PRN PRN Reason: nicotine craving Nicotine Polacrilex (Nicotine Polacrilex 2 Mg Gum) 2 mg BUCCAL Q2H PRN PRN Reason: Nicotine Cravings Olanzapine (Olanzapine 7.5 Mg Tablet) 7.5 mg PO TID [facility] Last Admin: 03/11/25 14:13 Dose: 7.5 mg Olanzapine (Olanzapine Odt 10 Mg Tab.Rapdis) 10 mg TRANSLINGU Q6H PRN PRN Reason: agitation or psychosis Last Admin: 03/11/25 00:12 Dose: 10 mg Oxcarbazepine (Oxcarbazepine 300 Mg Tablet) 600 mg PO BID [facility] Last Admin: 03/11/25 08:46 Dose: 600 mg Sertraline HCl (Sertraline Hcl 50 Mg Tablet) 50 mg PO BEDTIME [facility] Last Admin: 03/10/25 19:56 Dose: 50 mg Thiamine HCl (Thiamine Hcl 100 Mg Tablet) 100 mg PO DAILY [facility] Last Admin: 03/11/25 08:49 Dose: 100 mg Trazodone HCl (Trazodone Hcl 50 Mg Tablet) 150 mg PO BEDTIME [facility] Last Admin: 03/10/25 19:56 Dose: 150 mg Trazodone HCl (Trazodone Hcl 50 Mg Tablet) 50 mg PO TID PRN PRN Reason: for breakthrough agitation Last Admin: 03/08/25 18:06 Dose: 50 mg Trazodone HCl (Trazodone Hcl 50 Mg Tablet) 50 mg PO BEDTIME PRN PRN Reason: Insomnia Last Admin: 03/11/25 00:40 Dose: 50 mg Allergies Allergies Allergy/AdvReac Type Severity Reaction Status Date / Time lisinopril Allergy Mild Unknown Verified 02/22/25 11:20 codeine Allergy Unknown Verified 02/22/25 11:20 Assessment & Plan Assessment & Plan (1) Major neurocognitive disorder due to another medical condition with behavioral disturbance: Status: Acute Code(s): F02.818 - Dementia in other diseases classified elsewhere, unspecified severity, with other behavioral disturbance Plan Mr. 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 medical work up is unremarkable. He was started on ceftin for UTI- however, UA has leukocytosis but no nitrites nor bacteria (will stop ceftin). recommend increasing trileptal to 300mg po BID, continue olanzapine 7.5mg po BID. Continue trazodone 100mg po qhs. Will restart clonazepam 0.25mg po BID. Will monitor oversedation. PLAN 02/28 increase trileptal to 300mg po BID, continue olanzapine 7.5mg po BID, start/restart clonazepam 0.25mg po BID. Monitor over sedation. Continue Sertraline 50mg po daily. 03/04 continue increased clonazepam to 0.25mg po TID, trileptal 300mg po BID, olanzapine 7.5mg po BID. trazodone 100mg po qhs and sertraline 50mg po daily. 03/05 continue tx. 03/06 family meeting, plan to continue titrating medications and assess for therapeutic effect. 03/07 continue tx. 03/10 switch clonazepam to diazepam. continue olanzapine and trileptal. 03/11 difficulty sleeping, just changed to diazepam. continue medication regimen. Reason for continued inpatient stay Substantial Risk for: inability to function Time Spent With Patient Time: Total time managing care of this patient today ____ minutes.
[2025-03-11 20:00] VITALS: BP 133/72; PULSE 65; RESP 18; TEMP 36.9; O2SAT 96
[2025-03-12] MEDS: OLANZapine ODT 10 MG TAB.RAPDIS TRANSLINGU ×2 (00:29→16:31)
[2025-03-12 09:27] VITALS: BP 113/67; PULSE 68; RESP 16; TEMP 2.6; TEMP 36.6; O2SAT 100
[2025-03-12] MEDS: OLANZapine 7.5 MG TABLET PO ×3 (09:39→21:55)
[2025-03-12] MEDS: calcium polycarbophiL TABLET 1 TAB PO (09:39)
--- NOTE | 2025-03-12 09:45 | MHC.CLN ---
F/U DIET=REGULAR. CONTINUES WITH USUAL DAILY MEAL PATTERN, TAKES 2 MEALS 75-100%. BMI=19.6. PATIENT IS THIN BUT DOES NOT APPEAR TO BE MALNOURISHED. NO NUTRITIONAL SUPPLEMENT AT THIS TIME. RD TO MONITOR WEEKLY.
--- NOTE | 2025-03-12 13:48 | HO.PM.IMCN ---
History of Present Illness Data of Consult Service Date: 03/12/25 Primary Care Provider: LUIZ Rod HPI Reason for consult: Medical Management 69-year-old male with past medical history significant for history of hypertension coronary artery disease, he suffered a STEMI that was treated with fibrinolysis but was associated with cardiac arrest, which resulted in anoxic brain injury in May of 2020, BPH, compulsive behavior disorder, major neurocognitive disorder with behavioral disturbance, coronary artery disease, seizure disorder, cerebral atrophy suggesting degenerative dementia process presented to ED with behavioral changes and paranoid delusions. He was admitted to [facility] for further treatment. On exam he is awake, denies any medical concerns. He denies any shortness of breath, dizziness, lightheadedness or any other concerning symptoms. No concerns from nursing Review of Systems Review of Systems: Denies shortness of breath, dizziness, or any pain or discomfort [facility] Medical History (Updated 03/12/25 @ 16:24 by Jenny Plaza DNP) Primary degenerative dementia Dementia Complex partial seizures Anxiety Seizure disorder Hypertension CAD (coronary artery disease) BPH loc w urin obs/LUTS Contusion of left chest wall Emphysema of lung Neurogenic bladder Prostate nodule Ataxia Anoxic brain injury Epilepsy Cardiac arrest Surgical History No pertinent past surgical history Social History Household Members: Spouse and Children Housing: House Do you presently have visiting nurse or other home services: No Alcohol intake: never Comment: 1:1 Patient Tobacco Use Status: Former Tobacco user Smoked in Last 30 Days: Yes e-Cigarette/Vaping Use: Never Used Substance Use Type: Marijuana Currently Displaying Signs/Symptoms of Drug Intoxication Withdrawal: No Advance Directives: Yes Advance Directives on File: Yes Advance Directives Date on File: 07/04/24 Do you have thoughts of harming others: None Do you have a plan to hurt others: No Plan Recently lost weight without trying: No Nutrition Risks: No Nutritional Risk Poor oral hygiene: Yes service: No Current occupational status: retired Sexual orientation: Straight/Heterosexual Cognitive needs: No Hearing needs: No Vision needs: No Meds Allergies Allergy/AdvReac Type Severity Reaction Status Date / Time lisinopril Allergy Mild Unknown Verified 02/22/25 11:20 codeine Allergy Unknown Verified 02/22/25 11:20 Active Medications: Current Medications Acetaminophen (Acetaminophen 325 Mg Tablet) 650 mg PO Q6H PRN PRN Reason: Headache/Pain, Scale 1-10 Last Admin: 03/11/25 20:10 Dose: 650 mg Al Hydroxide/Mg Hydroxide (Magnesium Hydrox/Alum Hydrox 30 Ml Oral.Susp) 30 ml PO Q6H PRN PRN Reason: Heartburn/Nausea Aspirin (Aspirin 81 Mg Tab.Chew) 81 mg PO DAILY [facility] Last Admin: 03/12/25 09:39 Dose: 81 mg Atorvastatin Calcium (Atorvastatin Calcium 80 Mg Tablet) 80 mg PO BEDTIME [facility] Last Admin: 03/11/25 20:11 Dose: 80 mg Calcium Polycarbophil (Calcium Polycarbophil Tablet) 1 tab PO DAILY [facility] Last Admin: 03/12/25 09:39 Dose: 1 tab Clopidogrel Bisulfate (Clopidogrel Bisulfate 75 Mg Tablet) 75 mg PO DAILY [facility] Last Admin: 03/12/25 09:39 Dose: 75 mg Cyanocobalamin (Cyanocobalamin (Vitamin B-12) 1,000 Mcg Tablet) 1,000 mcg PO DAILY [facility] Last Admin: 03/12/25 09:39 Dose: 1,000 mcg Diazepam (Diazepam 5 Mg Tablet) 5 mg PO TID [facility] Last Admin: 03/12/25 09:39 Dose: 5 mg Finasteride (Finasteride 5 Mg Tablet) 5 mg PO DAILY [facility] Last Admin: 03/12/25 09:40 Dose: 5 mg Lamotrigine (Lamotrigine 100 Mg Tablet) 100 mg PO BID [facility] Last Admin: 03/12/25 09:39 Dose: 100 mg Lamotrigine (Lamotrigine 25 Mg Tablet) 50 mg PO BID [facility] Last Admin: 03/12/25 09:38 Dose: 50 mg Magnesium Hydroxide (Milk Of Magnesia 30 Ml Oral.Susp) 30 ml PO DAILY PRN PRN Reason: Constipation Nicotine (Nicotine 21 Mg Patch.Td24) 21 mg TRANSDERMA DAILY PRN PRN Reason: nicotine craving Nicotine Polacrilex (Nicotine Polacrilex 2 Mg Gum) 2 mg BUCCAL Q2H PRN PRN Reason: Nicotine Cravings Olanzapine (Olanzapine 7.5 Mg Tablet) 7.5 mg PO TID [facility] Last Admin: 03/12/25 09:39 Dose: 7.5 mg Olanzapine (Olanzapine Odt 10 Mg Tab.Rapdis) 10 mg TRANSLINGU Q6H PRN PRN Reason: agitation or psychosis Last Admin: 03/12/25 00:29 Dose: 10 mg Oxcarbazepine (Oxcarbazepine 300 Mg Tablet) 600 mg PO BID [facility] Last Admin: 03/12/25 09:39 Dose: 600 mg Sertraline HCl (Sertraline Hcl 50 Mg Tablet) 50 mg PO BEDTIME [facility] Last Admin: 03/11/25 20:11 Dose: 50 mg Thiamine HCl (Thiamine Hcl 100 Mg Tablet) 100 mg PO DAILY [facility] Last Admin: 03/12/25 09:39 Dose: 100 mg Trazodone HCl (Trazodone Hcl 50 Mg Tablet) 150 mg PO BEDTIME [facility] Last Admin: 03/11/25 20:09 Dose: 150 mg Trazodone HCl (Trazodone Hcl 50 Mg Tablet) 50 mg PO TID PRN PRN Reason: for breakthrough agitation Last Admin: 03/08/25 18:06 Dose: 50 mg Trazodone HCl (Trazodone Hcl 50 Mg Tablet) 50 mg PO BEDTIME PRN PRN Reason: Insomnia Last Admin: 03/12/25 00:29 Dose: 50 mg Home Medications ?Medication ?Instructions ?Recorded ?Confirmed ?Last Taken ?Type lamotrigine 150 mg tablet 150 mg PO BID 08/21/23 02/23/25 08/31/23 09:30 History sertraline 50 mg tablet 50 mg PO BEDTIME 08/21/23 02/23/25 08/31/23 09:30 History atorvastatin 80 mg tablet 80 mg PO BEDTIME 09/01/23 02/23/25 08/31/23 21:30 History calcium polycarbophil 625 mg 625 mg PO DAILY 01/16/25 02/23/25 Unknown History tablet (Fiber (calcium polycarbophil)) clonazepam 0.5 mg tablet (Klonopin) 0.5 mg PO TID 02/23/25 02/23/25 Unknown History olanzapine 15 mg tablet 7.5 mg PO BID 02/23/25 02/23/25 Unknown History olanzapine 5 mg disintegrating 5 mg PO DAILY PRN psychosis 02/23/25 02/23/25 Unknown History tablet oxcarbazepine 150 mg tablet 150 mg PO BID 02/23/25 02/23/25 Unknown History Physical Exam Vital Signs and Narrative: Vital Signs: Last Vital Signs Temp 36.6 F L 03/12/25 09:27 Pulse 68 03/12/25 09:27 Resp 16 03/12/25 09:27 BP 113/67 03/12/25 09:27 Pulse Ox 100 03/12/25 09:27 O2 Del Method Room Air 03/12/25 09:27 BMI result Body Mass Index 19.6 CONST: Alert and confused, in NAD. Pleasant HEENT: Normocephalic, atraumatic, MMM, Eyes clear, Neck supple RESP: Lungs clear, RRR even and regular HEART:,RRR, S1, S2. No edema GI:Abdomen Soft NT, ND. + BS times four :Deferred SKIN: Warm dry and intact, no visible lesions or rashes NEURO:CN II-XII Intact bilaterally, Sensation intact. Speech clear PSYCH: Normal affect Results Labs 03/06/25 07:33 03/06/25 07:33 Assessment and Plan (1) Hypertension: Status: Acute Plan Anoxic brain injury/major neurocognitive disorder with behavioral disturbance/cerebral atrophy indicative of dementia/compulsive behavior disorder Treatment per psychiatric team Hypertension/CAD/STEMI 2019 with cardiac arrest Continues on aspirin, Lipitor and plavix His blood pressures and labs have been stable BPH Continue Proscar Monitor voiding pattern Seizure disorder Continue Trileptal No recent seizure activity reported Thank you for allowing me to participate in the care of this patient. We will follow as needed, please update medical provider with any changes in condition or concerns.
--- NOTE | 2025-03-12 15:49 | HO.PSYCHPN ---
Subjective Subjective Date of Service: 03/12/25 Reason For Visit: increased paranoid Subjective Notes: Conditional Voluntary Interim History: Pt slept through the night. Pt was calm most of the morning. He is taking medications as prescribed. Oriented only to self. VS stable. not steady to ambulate on his own. Review of Systems Review of Systems Denies shortness of breath, dizziness, or any pain or discomfort Constitutional: Denies body ache(s), Denies chills and Denies fever(s) Eyes: Denies blurry vision Denies dizziness and Denies dry mouth Cardiovascular: Denies chest pain and Denies dyspnea on exertion Respiratory: Denies cough and Denies dyspnea on exertion Gastrointestinal: Denies abdominal pain Musculoskeletal: Denies back pain and Denies arthralgias Skin/Breast: Denies rash Denies dizziness Psychiatric: Denies anxiety, Denies depression, Denies visual hallucinations, Denies homicidal ideation and Denies suicidal ideation Mental Status Exam Mental Status Exam Narrative: Appearance:wearing hospital gown, fair hygiene, in NAD Behavior: cooperative Psychomotor: no agitation or retardation noted Speech: mostly clear, normal rate/rhythm/volume, spontaneous TP: mostly linear TC: asking for his and son Mood: okay Affect: congruent, non labile SI: denies HI: denies VH/AH: does not appear at this time Delusions: confabulation, along with more delusional thinking. insight/judgment: impaired x 2 memory/cog: alert, oriented only to self. severely impaired. Diagnostics Vital Signs (24Hr): Vital Signs - 24 hr 03/11/25 20:00 03/12/25 09:27 Temperature 98.4 F 36.6 F L Pulse Rate 65 68 Respiratory Rate 18 16 Blood Pressure 133/72 113/67 Pulse Oximetry 96 100 Oxygen Delivery Method Room Air Room Air BMI result Body Mass Index 19.6 Labs 03/13/25 07:30 03/13/25 07:30 Imaging Radiology Impressions: ITS Impressions Wrist X-Ray 03/05/25 10:28 IMPRESSION: Nonspecific cystic like lucency is present in the radial half of the lunate. It has nonaggressive features. Electronically signed by: Rell Fernando MD 03/05/2025 10:42 AM EDT Medications Medications Current Medications Acetaminophen (Acetaminophen 325 Mg Tablet) 650 mg PO Q6H PRN PRN Reason: Headache/Pain, Scale 1-10 Last Admin: 03/11/25 20:10 Dose: 650 mg Al Hydroxide/Mg Hydroxide (Magnesium Hydrox/Alum Hydrox 30 Ml Oral.Susp) 30 ml PO Q6H PRN PRN Reason: Heartburn/Nausea Aspirin (Aspirin 81 Mg Tab.Chew) 81 mg PO DAILY [facility] Last Admin: 03/12/25 09:39 Dose: 81 mg Atorvastatin Calcium (Atorvastatin Calcium 80 Mg Tablet) 80 mg PO BEDTIME [facility] Last Admin: 03/11/25 20:11 Dose: 80 mg Calcium Polycarbophil (Calcium Polycarbophil Tablet) 1 tab PO DAILY [facility] Last Admin: 03/12/25 09:39 Dose: 1 tab Clopidogrel Bisulfate (Clopidogrel Bisulfate 75 Mg Tablet) 75 mg PO DAILY [facility] Last Admin: 03/12/25 09:39 Dose: 75 mg Cyanocobalamin (Cyanocobalamin (Vitamin B-12) 1,000 Mcg Tablet) 1,000 mcg PO DAILY [facility] Last Admin: 03/12/25 09:39 Dose: 1,000 mcg Diazepam (Diazepam 5 Mg Tablet) 5 mg PO TID [facility] Last Admin: 03/12/25 15:08 Dose: 5 mg Finasteride (Finasteride 5 Mg Tablet) 5 mg PO DAILY [facility] Last Admin: 03/12/25 09:40 Dose: 5 mg Lamotrigine (Lamotrigine 100 Mg Tablet) 100 mg PO BID [facility] Last Admin: 03/12/25 09:39 Dose: 100 mg Lamotrigine (Lamotrigine 25 Mg Tablet) 50 mg PO BID [facility] Last Admin: 03/12/25 09:38 Dose: 50 mg Magnesium Hydroxide (Milk Of Magnesia 30 Ml Oral.Susp) 30 ml PO DAILY PRN PRN Reason: Constipation Nicotine (Nicotine 21 Mg Patch.Td24) 21 mg TRANSDERMA DAILY PRN PRN Reason: nicotine craving Nicotine Polacrilex (Nicotine Polacrilex 2 Mg Gum) 2 mg BUCCAL Q2H PRN PRN Reason: Nicotine Cravings Olanzapine (Olanzapine 7.5 Mg Tablet) 7.5 mg PO TID [facility] Last Admin: 03/12/25 15:08 Dose: 7.5 mg Olanzapine (Olanzapine Odt 10 Mg Tab.Rapdis) 10 mg TRANSLINGU Q6H PRN PRN Reason: agitation or psychosis Last Admin: 03/12/25 00:29 Dose: 10 mg Oxcarbazepine (Oxcarbazepine 300 Mg Tablet) 600 mg PO BID [facility] Last Admin: 03/12/25 09:39 Dose: 600 mg Sertraline HCl (Sertraline Hcl 50 Mg Tablet) 50 mg PO BEDTIME [facility] Last Admin: 03/11/25 20:11 Dose: 50 mg Thiamine HCl (Thiamine Hcl 100 Mg Tablet) 100 mg PO DAILY [facility] Last Admin: 03/12/25 09:39 Dose: 100 mg Trazodone HCl (Trazodone Hcl 50 Mg Tablet) 150 mg PO BEDTIME [facility] Last Admin: 03/11/25 20:09 Dose: 150 mg Trazodone HCl (Trazodone Hcl 50 Mg Tablet) 50 mg PO TID PRN PRN Reason: for breakthrough agitation Last Admin: 03/12/25 15:08 Dose: 50 mg Trazodone HCl (Trazodone Hcl 50 Mg Tablet) 50 mg PO BEDTIME PRN PRN Reason: Insomnia Last Admin: 03/12/25 00:29 Dose: 50 mg Allergies Allergies Allergy/AdvReac Type Severity Reaction Status Date / Time lisinopril Allergy Mild Unknown Verified 02/22/25 11:20 codeine Allergy Unknown Verified 02/22/25 11:20 Assessment & Plan Assessment & Plan (1) Major neurocognitive disorder due to another medical condition with behavioral disturbance: Status: Acute Code(s): F02.818 - Dementia in other diseases classified elsewhere, unspecified severity, with other behavioral disturbance Plan Mr. 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 medical work up is unremarkable. He was started on ceftin for UTI- however, UA has leukocytosis but no nitrites nor bacteria (will stop ceftin). recommend increasing trileptal to 300mg po BID, continue olanzapine 7.5mg po BID. Continue trazodone 100mg po qhs. Will restart clonazepam 0.25mg po BID. Will monitor oversedation. PLAN 02/28 increase trileptal to 300mg po BID, continue olanzapine 7.5mg po BID, start/restart clonazepam 0.25mg po BID. Monitor over sedation. Continue Sertraline 50mg po daily. 03/04 continue increased clonazepam to 0.25mg po TID, trileptal 300mg po BID, olanzapine 7.5mg po BID. trazodone 100mg po qhs and sertraline 50mg po daily. 03/05 continue tx. 03/06 family meeting, plan to continue titrating medications and assess for therapeutic effect. 03/07 continue tx. 03/10 switch clonazepam to diazepam. continue olanzapine and trileptal. 03/11 difficulty sleeping, just changed to diazepam. continue medication regimen. 03/12 continue tx. Reason for continued inpatient stay Substantial Risk for: inability to function Time Spent With Patient Time: Total time managing care of this patient today ____ minutes.
[2025-03-12 20:00] VITALS: BP 137/79; PULSE 78; RESP 18; TEMP 37.1; O2SAT 96
[2025-03-13 08:06] LABS: MANUAL DIFF FLAG NO
[2025-03-13 08:13] LABS: Hematocrit 34.7 % (42.0-52.0); Hemoglobin 11.5 g/dl (14.0-18.0); Imm Gran Abs Auto 0.04 X10*3/uL (0.00-0.03); Imm Gran Pct Auto 0.4 % (0.0-0.4); Lymphocytes Absolute Auto 3.0 X10*3/uL (1.2-4.9); Mean Corpuscular HGB Conc 33.1 g/dl (31.0-36.0); Mean Corpuscular Hemoglobin 31.0 pg (27.0-33.0); Mean Corpuscular Volume 93.5 fL (80.0-98.0); NRBC Abs Auto 0.000 X10*3/uL (0.0-0.012); NRBC Pct Auto 0.0 /100WBC (0.0-0.2); Platelet Count 446 X10*3/uL (160-400); Red Blood Count 3.71 X10*6/uL (4.60-5.80); White Blood Count 9.6 X10*3/uL (4.8-10.8)
[2025-03-13 08:29] LABS: Anion Gap 13 (12-20); Blood Urea Nitrogen 15 mg/dL (9-16); Calcium 8.8 mg/dL (8.4-10.2); Carbon Dioxide 26 mmol/L (22-29); Chloride 107 mmol/L (96-108); Creatinine Clr Calc Pharmacy 75.2; Estimated Glomerular Filt Rate > 60; Potassium 3.9 mmol/L (3.3-5.1); Sodium 142 mmol/L (135-145)
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
[2025-03-13 10:00] VITALS: BP 107/65; PULSE 78; RESP 18; TEMP 36.4; O2SAT 96
[2025-03-13] MEDS: calcium polycarbophiL TABLET 1 TAB PO (10:19)
[2025-03-13] MEDS: OLANZapine 7.5 MG TABLET PO ×3 (10:19→21:01)
--- NOTE | 2025-03-13 18:09 | P.PNPSI_ITS ---
Subjective Subjective Date of Service: 03/13/25 Reason For Visit: increased paranoid Subjective Notes: Conditional Voluntary Interim History: Pt slept through the night. He had episode of increased either myoclonic movements as he has had intermittently. He has not been aggressive towards self or others. He is taking medications as prescribed. Medication Compliance: Yes Review of Systems Review of Systems Denies shortness of breath, dizziness, or any pain or discomfort Constitutional: Denies body ache(s), Denies chills and Denies fever(s) Eyes: Denies blurry vision Denies dizziness and Denies dry mouth Cardiovascular: Denies chest pain and Denies dyspnea on exertion Respiratory: Denies cough and Denies dyspnea on exertion Gastrointestinal: Denies abdominal pain Musculoskeletal: Denies back pain and Denies arthralgias Skin/Breast: Denies rash Denies dizziness Psychiatric: Denies anxiety, Denies depression, Denies visual hallucinations, Denies homicidal ideation and Denies suicidal ideation Mental Status Exam Mental Status Exam Narrative: Appearance:wearing hospital gown, fair hygiene, in NAD Behavior: cooperative Psychomotor: no agitation or retardation noted Speech: mostly clear, normal rate/rhythm/volume, spontaneous TP: mostly linear TC: asking for his and son Mood: okay Affect: congruent, non labile SI: denies HI: denies VH/AH: does not appear at this time Delusions: confabulation, along with more delusional thinking. insight/judgment: impaired x 2 memory/cog: alert, oriented only to self. severely impaired. Diagnostics Vital Signs (24Hr): Vital Signs - 24 hr 03/12/25 20:00 03/13/25 10:00 Temperature 98.7 F 97.5 F Pulse Rate 78 78 Respiratory Rate 18 18 Blood Pressure 137/79 107/65 Pulse Oximetry 96 96 Oxygen Delivery Method Room Air Room Air BMI result Body Mass Index 19.6 Labs 03/13/25 07:30 03/13/25 07:30 Labs: Laboratory Results - last 48 hr 03/13/25 07:30 WBC 9.6 RBC 3.71 L Hgb 11.5 L Hct 34.7 L MCV 93.5 MCH 31.0 MCHC 33.1 RDW 16.9 H Plt Count 446 H MPV 9.8 Immature Gran % (Auto) 0.4 Neut % (Auto) 57.6 Lymph % (Auto) 31.4 [place] % (Auto) 6.4 Eos % (Auto) 3.8 Baso % (Auto) 0.4 Lymph # (Auto) 3.0 [place] # (Auto) 0.6 Eos # (Auto) 0.4 Baso # (Auto) 0.0 Abs Immat Gran (auto) 0.04 H Absolute Neuts (auto) 5.5 Absolute Nucleated RBC 0.000 Nucleated RBC % (auto) 0.0 Sodium 142 Potassium 3.9 Chloride 107 Carbon Dioxide 26 Anion Gap 13 BUN 15 Creatinine 0.91 Estim Creat Clear Calc 75.2 Estimated GFR > 60 Random Glucose 88 Calcium 8.8 D Imaging Radiology Impressions: ITS Impressions Wrist X-Ray 03/05/25 10:28 IMPRESSION: Nonspecific cystic like lucency is present in the radial half of the lunate. It has nonaggressive features. Electronically signed by: Rell Fernando MD 03/05/2025 10:42 AM EDT RP Medications Medications Current Medications Acetaminophen (Acetaminophen 325 Mg Tablet) 650 mg PO Q6H PRN PRN Reason: Headache/Pain, Scale 1-10 Last Admin: 03/12/25 21:54 Dose: 650 mg Al Hydroxide/Mg Hydroxide (Magnesium Hydrox/Alum Hydrox 30 Ml Oral.Susp) 30 ml PO Q6H PRN PRN Reason: Heartburn/Nausea Aspirin (Aspirin 81 Mg Tab.Chew) 81 mg PO DAILY [facility] Last Admin: 03/13/25 10:19 Dose: 81 mg Atorvastatin Calcium (Atorvastatin Calcium 80 Mg Tablet) 80 mg PO BEDTIME [facility] Last Admin: 03/12/25 21:55 Dose: 80 mg Calcium Polycarbophil (Calcium Polycarbophil Tablet) 1 tab PO DAILY [facility] Last Admin: 03/13/25 10:19 Dose: 1 tab Clopidogrel Bisulfate (Clopidogrel Bisulfate 75 Mg Tablet) 75 mg PO DAILY [facility] Last Admin: 03/13/25 10:19 Dose: 75 mg Cyanocobalamin (Cyanocobalamin (Vitamin B-12) 1,000 Mcg Tablet) 1,000 mcg PO DAILY [facility] Last Admin: 03/13/25 10:18 Dose: 1,000 mcg Diazepam (Diazepam 5 Mg Tablet) 5 mg PO TID [facility] Last Admin: 03/13/25 14:25 Dose: 5 mg Finasteride (Finasteride 5 Mg Tablet) 5 mg PO DAILY [facility] Last Admin: 03/13/25 10:19 Dose: 5 mg Lamotrigine (Lamotrigine 100 Mg Tablet) 100 mg PO BID [facility] Last Admin: 03/13/25 10:18 Dose: 100 mg Lamotrigine (Lamotrigine 25 Mg Tablet) 50 mg PO BID [facility] Last Admin: 03/13/25 10:18 Dose: 50 mg Magnesium Hydroxide (Milk Of Magnesia 30 Ml Oral.Susp) 30 ml PO DAILY PRN PRN Reason: Constipation Nicotine (Nicotine 21 Mg Patch.Td24) 21 mg TRANSDERMA DAILY PRN PRN Reason: nicotine craving Nicotine Polacrilex (Nicotine Polacrilex 2 Mg Gum) 2 mg BUCCAL Q2H PRN PRN Reason: Nicotine Cravings Olanzapine (Olanzapine 7.5 Mg Tablet) 7.5 mg PO TID [facility] Last Admin: 03/13/25 14:25 Dose: 7.5 mg Olanzapine (Olanzapine Odt 10 Mg Tab.Rapdis) 10 mg TRANSLINGU Q6H PRN PRN Reason: agitation or psychosis Last Admin: 03/12/25 16:31 Dose: 10 mg Oxcarbazepine (Oxcarbazepine 300 Mg Tablet) 600 mg PO BID [facility] Last Admin: 03/13/25 10:19 Dose: 600 mg Sertraline HCl (Sertraline Hcl 50 Mg Tablet) 50 mg PO BEDTIME [facility] Last Admin: 03/12/25 21:56 Dose: 50 mg Thiamine HCl (Thiamine Hcl 100 Mg Tablet) 100 mg PO DAILY [facility] Last Admin: 03/13/25 10:19 Dose: 100 mg Trazodone HCl (Trazodone Hcl 50 Mg Tablet) 150 mg PO BEDTIME [facility] Last Admin: 03/12/25 21:55 Dose: 150 mg Trazodone HCl (Trazodone Hcl 50 Mg Tablet) 50 mg PO BEDTIME PRN PRN Reason: Insomnia Last Admin: 03/12/25 00:29 Dose: 50 mg Allergies Allergies Allergy/AdvReac Type Severity Reaction Status Date / Time lisinopril Allergy Mild Unknown Verified 02/22/25 11:20 codeine Allergy Unknown Verified 02/22/25 11:20 Assessment & Plan Assessment & Plan (1) Major neurocognitive disorder due to another medical condition with behavioral disturbance: Status: Acute Code(s): F02.818 - Dementia in other diseases classified elsewhere, unspecified severity, with other behavioral disturbance Plan Mr. 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 medical work up is unremarkable. He was started on ceftin for UTI- however, UA has leukocytosis but no nitrites nor bacteria (will stop ceftin). recommend increasing trileptal to 300mg po BID, continue olanzapine 7.5mg po BID. Continue trazodone 100mg po qhs. Will restart clonazepam 0.25mg po BID. Will monitor oversedation. PLAN 02/28 increase trileptal to 300mg po BID, continue olanzapine 7.5mg po BID, start/restart clonazepam 0.25mg po BID. Monitor over sedation. Continue Sertraline 50mg po daily. 03/04 continue increased clonazepam to 0.25mg po TID, trileptal 300mg po BID, olanzapine 7.5mg po BID. trazodone 100mg po qhs and sertraline 50mg po daily. 03/05 continue tx. 03/06 family meeting, plan to continue titrating medications and assess for therapeutic effect. 03/07 continue tx. 03/10 switch clonazepam to diazepam. continue olanzapine and trileptal. 03/11 difficulty sleeping, just changed to diazepam. continue medication regimen. 03/12 continue tx. 03/13 continue tx. restart prn olanzapine. Reason for continued inpatient stay Substantial Risk for: inability to function Time Spent With Patient Time: Total time managing care of this patient today ____ minutes.
[2025-03-13 20:00] VITALS: BP 128/78; PULSE 100; RESP 18; TEMP 36.1; O2SAT 96
[2025-03-14] MEDS: OLANZapine ODT 10 MG TAB.RAPDIS TRANSLINGU (02:53)
[2025-03-14 08:40] VITALS: BP 115/61; PULSE 73; RESP 14; TEMP 36.9; O2SAT 97
[2025-03-14] MEDS: OLANZapine 7.5 MG TABLET PO ×3 (09:47→20:40)
[2025-03-14] MEDS: calcium polycarbophiL TABLET 1 TAB PO (09:52)
--- NOTE | 2025-03-14 14:50 | HO.PSYCHPN ---
Subjective Subjective Date of Service: 03/13/25 Reason For Visit: increased paranoid Subjective Notes: Conditional Voluntary Healthcare Proxy: Yes Interim History: Pt slept through the night. He had episode of increased either myoclonic movements as he has had intermittently. He has not been aggressive towards self or others. He is taking medications as prescribed. Called and provided update. Pt continues to have periods of agitation, what seems to be myoclonic movements. Review of Systems Review of Systems Denies shortness of breath, dizziness, or any pain or discomfort Constitutional: Denies body ache(s), Denies chills and Denies fever(s) Eyes: Denies blurry vision Denies dizziness and Denies dry mouth Cardiovascular: Denies chest pain and Denies dyspnea on exertion Respiratory: Denies cough and Denies dyspnea on exertion Gastrointestinal: Denies abdominal pain Musculoskeletal: Denies back pain and Denies arthralgias Skin/Breast: Denies rash Denies dizziness Psychiatric: Denies anxiety, Denies depression, Denies visual hallucinations, Denies homicidal ideation and Denies suicidal ideation Mental Status Exam Mental Status Exam Narrative: Appearance:wearing hospital gown, fair hygiene, in NAD Behavior: cooperative Psychomotor: no agitation or retardation noted Speech: mostly clear, normal rate/rhythm/volume, spontaneous TP: mostly linear TC: asking for his and son Mood: okay Affect: congruent, non labile SI: denies HI: denies VH/AH: does not appear at this time Delusions: confabulation, along with more delusional thinking. insight/judgment: impaired x 2 memory/cog: alert, oriented only to self. severely impaired. Diagnostics Vital Signs (24Hr): Vital Signs - 24 hr 03/13/25 20:00 03/14/25 08:40 Temperature 97.0 F 98.4 F Pulse Rate 100 73 Respiratory Rate 18 14 Blood Pressure 128/78 115/61 Pulse Oximetry 96 97 Oxygen Delivery Method Room Air Room Air BMI result Body Mass Index 19.6 Labs 03/13/25 07:30 03/13/25 07:30 Labs: Laboratory Results - last 48 hr 03/13/25 07:30 WBC 9.6 RBC 3.71 L Hgb 11.5 L Hct 34.7 L MCV 93.5 MCH 31.0 MCHC 33.1 RDW 16.9 H Plt Count 446 H MPV 9.8 Immature Gran % (Auto) 0.4 Neut % (Auto) 57.6 Lymph % (Auto) 31.4 [place] % (Auto) 6.4 Eos % (Auto) 3.8 Baso % (Auto) 0.4 Lymph # (Auto) 3.0 [place] # (Auto) 0.6 Eos # (Auto) 0.4 Baso # (Auto) 0.0 Abs Immat Gran (auto) 0.04 H Absolute Neuts (auto) 5.5 Absolute Nucleated RBC 0.000 Nucleated RBC % (auto) 0.0 Sodium 142 Potassium 3.9 Chloride 107 Carbon Dioxide 26 Anion Gap 13 BUN 15 Creatinine 0.91 Estim Creat Clear Calc 75.2 Estimated GFR > 60 Random Glucose 88 Calcium 8.8 D Imaging Radiology Impressions: ITS Impressions Wrist X-Ray 03/05/25 10:28 IMPRESSION: Nonspecific cystic like lucency is present in the radial half of the lunate. It has nonaggressive features. Electronically signed by: Rell Fernando MD 03/05/2025 10:42 AM EDT Medications Medications Current Medications Acetaminophen (Acetaminophen 325 Mg Tablet) 650 mg PO Q6H PRN PRN Reason: Headache/Pain, Scale 1-10 Last Admin: 03/12/25 21:54 Dose: 650 mg Al Hydroxide/Mg Hydroxide (Magnesium Hydrox/Alum Hydrox 30 Ml Oral.Susp) 30 ml PO Q6H PRN PRN Reason: Heartburn/Nausea Aspirin (Aspirin 81 Mg Tab.Chew) 81 mg PO DAILY [facility] Last Admin: 03/14/25 09:47 Dose: 81 mg Atorvastatin Calcium (Atorvastatin Calcium 80 Mg Tablet) 80 mg PO BEDTIME [facility] Last Admin: 03/13/25 21:01 Dose: 80 mg Calcium Polycarbophil (Calcium Polycarbophil Tablet) 1 tab PO DAILY [facility] Last Admin: 03/14/25 09:52 Dose: 1 tab Clopidogrel Bisulfate (Clopidogrel Bisulfate 75 Mg Tablet) 75 mg PO DAILY [facility] Last Admin: 03/14/25 09:50 Dose: 75 mg Cyanocobalamin (Cyanocobalamin (Vitamin B-12) 1,000 Mcg Tablet) 1,000 mcg PO DAILY [facility] Last Admin: 03/14/25 09:49 Dose: 1,000 mcg Diazepam (Diazepam 5 Mg Tablet) 5 mg PO TID [facility] Last Admin: 03/14/25 14:13 Dose: 5 mg Finasteride (Finasteride 5 Mg Tablet) 5 mg PO DAILY [facility] Last Admin: 03/14/25 09:52 Dose: 5 mg Lamotrigine (Lamotrigine 100 Mg Tablet) 100 mg PO BID [facility] Last Admin: 03/14/25 09:47 Dose: 100 mg Lamotrigine (Lamotrigine 25 Mg Tablet) 50 mg PO BID [facility] Last Admin: 03/14/25 09:48 Dose: 50 mg Magnesium Hydroxide (Milk Of Magnesia 30 Ml Oral.Susp) 30 ml PO DAILY PRN PRN Reason: Constipation Nicotine (Nicotine 21 Mg Patch.Td24) 21 mg TRANSDERMA DAILY PRN PRN Reason: nicotine craving Nicotine Polacrilex (Nicotine Polacrilex 2 Mg Gum) 2 mg BUCCAL Q2H PRN PRN Reason: Nicotine Cravings Olanzapine (Olanzapine 7.5 Mg Tablet) 7.5 mg PO TID [facility] Last Admin: 03/14/25 14:13 Dose: 7.5 mg Olanzapine (Olanzapine Odt 10 Mg Tab.Rapdis) 10 mg TRANSLINGU Q6H PRN PRN Reason: agitation or psychosis Last Admin: 03/14/25 02:53 Dose: 10 mg Oxcarbazepine (Oxcarbazepine 300 Mg Tablet) 600 mg PO BID [facility] Last Admin: 03/14/25 09:46 Dose: 600 mg Sertraline HCl (Sertraline Hcl 50 Mg Tablet) 50 mg PO BEDTIME [facility] Last Admin: 03/13/25 21:01 Dose: 50 mg Thiamine HCl (Thiamine Hcl 100 Mg Tablet) 100 mg PO DAILY [facility] Last Admin: 03/14/25 09:51 Dose: 100 mg Trazodone HCl (Trazodone Hcl 50 Mg Tablet) 150 mg PO BEDTIME [facility] Last Admin: 03/13/25 21:00 Dose: 150 mg Trazodone HCl (Trazodone Hcl 50 Mg Tablet) 50 mg PO BEDTIME PRN PRN Reason: Insomnia Last Admin: 03/14/25 02:53 Dose: 50 mg Allergies Allergies Allergy/AdvReac Type Severity Reaction Status Date / Time lisinopril Allergy Mild Unknown Verified 02/22/25 11:20 codeine Allergy Unknown Verified 02/22/25 11:20 Assessment & Plan Assessment & Plan (1) Major neurocognitive disorder due to another medical condition with behavioral disturbance: Status: Acute Code(s): F02.818 - Dementia in other diseases classified elsewhere, unspecified severity, with other behavioral disturbance Plan Mr. 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 medical work up is unremarkable. He was started on ceftin for UTI- however, UA has leukocytosis but no nitrites nor bacteria (will stop ceftin). recommend increasing trileptal to 300mg po BID, continue olanzapine 7.5mg po BID. Continue trazodone 100mg po qhs. Will restart clonazepam 0.25mg po BID. Will monitor oversedation. PLAN 02/28 increase trileptal to 300mg po BID, continue olanzapine 7.5mg po BID, start/restart clonazepam 0.25mg po BID. Monitor over sedation. Continue Sertraline 50mg po daily. 03/04 continue increased clonazepam to 0.25mg po TID, trileptal 300mg po BID, olanzapine 7.5mg po BID. trazodone 100mg po qhs and sertraline 50mg po daily. 03/05 continue tx. 03/06 family meeting, plan to continue titrating medications and assess for therapeutic effect. 03/07 continue tx. 03/10 switch clonazepam to diazepam. continue olanzapine and trileptal. 03/11 difficulty sleeping, just changed to diazepam. continue medication regimen. 03/12 continue tx. 03/13 continue tx. restart prn olanzapine. 03/14 increase diazepam 10mg po TID. Reason for continued inpatient stay Substantial Risk for: inability to function Time Spent With Patient Time: Total time managing care of this patient today ____ minutes.
[2025-03-14 20:00] VITALS: BP 130/60; PULSE 96; RESP 16; TEMP 37.7; O2SAT 98
[2025-03-15 09:30] VITALS: BP 134/79; PULSE 92; RESP 14; TEMP 36.4; O2SAT 98
[2025-03-15] MEDS: OLANZapine 7.5 MG TABLET PO ×3 (09:47→22:08)
[2025-03-15] MEDS: calcium polycarbophiL TABLET 1 TAB PO (09:47)
[2025-03-15] MEDS: OLANZapine ODT 10 MG TAB.RAPDIS TRANSLINGU (12:11)
[2025-03-15 20:00] VITALS: BP 147/75; PULSE 83; RESP 16; TEMP 36.3; O2SAT 97
--- NOTE | 2025-03-15 22:08 | P.PNPSI_ITS ---
Subjective Subjective Date of Service: 03/15/25 Reason For Visit: increased paranoid Subjective Notes: Conditional Voluntary Healthcare Proxy: Yes Interim History: patient has been in a bit better behavioral control no agitation thus far today. He was calm on approach, watching an old TV show on the tablet. Minimal spontaneous material, stated that he was okay and denied immediate concerns. Denies SI/HI/AVH, but is an impaired historian. Medication Compliance: Yes Side effects from medications: No Attending Groups: No Review of Systems Acute medical concerns: No Medical Review of Systems: unchanged Mental Status Exam Mental Status Exam Narrative: Mental Status Exam Narrative: Appearance:wearing hospital gown, fair hygiene, in NAD Behavior: cooperative, watching tv in his room Psychomotor: no agitation or slowing noted Speech: mostly clear, normal rate/rhythm/volume, spontaneous TP: mostly linear TC: paucity of spontaneous material Mood: okay Affect: congruent, non labile SI: denies HI: denies VH/AH: denies Delusions: confabulation insight/judgment: significantly impaired memory/cog: alert, oriented only to self. severely impaired. Diagnostics Vital Signs (24Hr): Vital Signs - 24 hr 03/15/25 09:30 Temperature 97.5 F Pulse Rate 92 Respiratory Rate 14 Blood Pressure 134/79 Pulse Oximetry 98 Oxygen Delivery Method Room Air BMI result Body Mass Index 19.6 Labs 03/13/25 07:30 03/13/25 07:30 Imaging Radiology Impressions: ITS Impressions Wrist X-Ray 03/05/25 10:28 IMPRESSION: Nonspecific cystic like lucency is present in the radial half of the lunate. It has nonaggressive features. Electronically signed by: Rell Fernando MD 03/05/2025 10:42 AM EDT Medications Medications Current Medications Acetaminophen (Acetaminophen 325 Mg Tablet) 650 mg PO Q6H PRN PRN Reason: Headache/Pain, Scale 1-10 Last Admin: 03/14/25 20:43 Dose: 650 mg Al Hydroxide/Mg Hydroxide (Magnesium Hydrox/Alum Hydrox 30 Ml Oral.Susp) 30 ml PO Q6H PRN PRN Reason: Heartburn/Nausea Aspirin (Aspirin 81 Mg Tab.Chew) 81 mg PO DAILY [facility] Last Admin: 03/15/25 09:47 Dose: 81 mg Atorvastatin Calcium (Atorvastatin Calcium 80 Mg Tablet) 80 mg PO BEDTIME [facility] Last Admin: 03/14/25 20:41 Dose: 80 mg Calcium Polycarbophil (Calcium Polycarbophil Tablet) 1 tab PO DAILY [facility] Last Admin: 03/15/25 09:47 Dose: 1 tab Clopidogrel Bisulfate (Clopidogrel Bisulfate 75 Mg Tablet) 75 mg PO DAILY [facility] Last Admin: 03/15/25 09:47 Dose: 75 mg Cyanocobalamin (Cyanocobalamin (Vitamin B-12) 1,000 Mcg Tablet) 1,000 mcg PO DAILY [facility] Last Admin: 03/15/25 09:47 Dose: 1,000 mcg Diazepam (Diazepam 5 Mg Tablet) 10 mg PO TID [facility] Last Admin: 03/15/25 14:31 Dose: 10 mg Finasteride (Finasteride 5 Mg Tablet) 5 mg PO DAILY [facility] Last Admin: 03/15/25 09:48 Dose: 5 mg Lamotrigine (Lamotrigine 100 Mg Tablet) 100 mg PO BID [facility] Last Admin: 03/15/25 09:48 Dose: 100 mg Lamotrigine (Lamotrigine 25 Mg Tablet) 50 mg PO BID [facility] Last Admin: 03/15/25 09:47 Dose: 50 mg Magnesium Hydroxide (Milk Of Magnesia 30 Ml Oral.Susp) 30 ml PO DAILY PRN PRN Reason: Constipation Nicotine (Nicotine 21 Mg Patch.Td24) 21 mg TRANSDERMA DAILY PRN PRN Reason: nicotine craving Nicotine Polacrilex (Nicotine Polacrilex 2 Mg Gum) 2 mg BUCCAL Q2H PRN PRN Reason: Nicotine Cravings Olanzapine (Olanzapine 7.5 Mg Tablet) 7.5 mg PO TID [facility] Last Admin: 03/15/25 14:31 Dose: 7.5 mg Olanzapine (Olanzapine Odt 10 Mg Tab.Rapdis) 10 mg TRANSLINGU Q6H PRN PRN Reason: agitation or psychosis Last Admin: 03/15/25 12:11 Dose: 10 mg Oxcarbazepine (Oxcarbazepine 300 Mg Tablet) 600 mg PO BID [facility] Last Admin: 03/15/25 09:47 Dose: 600 mg Sertraline HCl (Sertraline Hcl 50 Mg Tablet) 50 mg PO BEDTIME [facility] Last Admin: 03/14/25 20:42 Dose: 50 mg Thiamine HCl (Thiamine Hcl 100 Mg Tablet) 100 mg PO DAILY [facility] Last Admin: 03/15/25 09:47 Dose: 100 mg Trazodone HCl (Trazodone Hcl 50 Mg Tablet) 150 mg PO BEDTIME [facility] Last Admin: 03/14/25 20:41 Dose: 150 mg Trazodone HCl (Trazodone Hcl 50 Mg Tablet) 50 mg PO BEDTIME PRN PRN Reason: Insomnia Last Admin: 03/14/25 02:53 Dose: 50 mg Allergies Allergies Allergy/AdvReac Type Severity Reaction Status Date / Time lisinopril Allergy Mild Unknown Verified 02/22/25 11:20 codeine Allergy Unknown Verified 02/22/25 11:20 Assessment & Plan Assessment & Plan (1) Major neurocognitive disorder due to another medical condition with behavioral disturbance: Status: Acute Code(s): F02.818 - Dementia in other diseases classified elsewhere, unspecified severity, with other behavioral disturbance Plan Mr. 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 medical work up is unremarkable. He was started on ceftin for UTI- however, UA has leukocytosis but no nitrites nor bacteria (will stop ceftin). recommend increasing trileptal to 300mg po BID, continue olanzapine 7.5mg po BID. Continue trazodone 100mg po qhs. Will restart clonazepam 0.25mg po BID. Will monitor oversedation. PLAN 02/28 increase trileptal to 300mg po BID, continue olanzapine 7.5mg po BID, start/restart clonazepam 0.25mg po BID. Monitor over sedation. Continue Sertraline 50mg po daily. 03/04 continue increased clonazepam to 0.25mg po TID, trileptal 300mg po BID, olanzapine 7.5mg po BID. trazodone 100mg po qhs and sertraline 50mg po daily. 03/05 continue tx. 03/06 family meeting, plan to continue titrating medications and assess for therapeutic effect. 03/07 continue tx. 03/10 switch clonazepam to diazepam. continue olanzapine and trileptal. 03/11 difficulty sleeping, just changed to diazepam. continue medication regimen. 03/12 continue tx. 03/13 continue tx. restart prn olanzapine. 03/14 increase diazepam 10mg po TID. 03/15: monitor on diazepam Reason for continued inpatient stay Substantial Risk for: inability to function and rapid decompensation Time Spent With Patient Time: Total time managing care of this patient today __15__ minutes.
[2025-03-16 07:50] VITALS: BP 129/71; PULSE 75; RESP 18; TEMP 36.7; O2SAT 95
[2025-03-16] MEDS: OLANZapine 7.5 MG TABLET PO ×3 (08:12→21:41)
[2025-03-16] MEDS: calcium polycarbophiL TABLET 1 TAB PO (08:13)
--- NOTE | 2025-03-16 17:07 | P.PNPSI_ITS ---
Subjective Subjective Date of Service: 03/16/25 Reason For Visit: increased paranoid Subjective Notes: Conditional Voluntary Healthcare Proxy: Yes Guardianship: No Medical Problems Affecting Mental Status: No Interim History: Patient seen sitting in the hallway with 1:1 monitor present. He continues to keep to himself. He has had. Of appearing restless, agitated, however, this afternoon he seems a bit calmer. The addition of Valium seems to be connected with this change. Patient denied having any immediate concerns. He denied SI/HI/AVH. Medication Compliance: Yes Side effects from medications: No Attending Groups: Intermittent Review of Systems Acute medical concerns: No Medical Review of Systems: unchanged Review of Systems Review of Systems Yes all other systems are reviewed and are negative Mental Status Exam Mental Status Exam Narrative: Appearance:wearing hospital gown, fair hygiene, in NAD Behavior: sitting in hallway Psychomotor: slowing Speech: mostly clear, normal rate/rhythm/volume, spontaneous TP: mostly linear TC: paucity of spontaneous material Mood: okay Affect: congruent, non labile SI: denies HI: denies VH/AH: denies Delusions: confabulation insight/judgment: significantly impaired memory/cog: alert, oriented only to self. severely impaired. Diagnostics Vital Signs (24Hr): Vital Signs - 24 hr 03/15/25 20:00 03/16/25 07:50 Temperature 97.4 F 98.1 F Pulse Rate 83 75 Respiratory Rate 16 18 Blood Pressure 147/75 H 129/71 Pulse Oximetry 97 95 Oxygen Delivery Method Room Air Room Air BMI result Body Mass Index 19.6 Labs 03/13/25 07:30 03/13/25 07:30 Imaging Radiology Impressions: ITS Impressions Wrist X-Ray 03/05/25 10:28 IMPRESSION: Nonspecific cystic like lucency is present in the radial half of the lunate. It has nonaggressive features. Electronically signed by: Rell Fernando MD 03/05/2025 10:42 AM EDT Medications Medications Current Medications Acetaminophen (Acetaminophen 325 Mg Tablet) 650 mg PO Q6H PRN PRN Reason: Headache/Pain, Scale 1-10 Last Admin: 03/14/25 20:43 Dose: 650 mg Al Hydroxide/Mg Hydroxide (Magnesium Hydrox/Alum Hydrox 30 Ml Oral.Susp) 30 ml PO Q6H PRN PRN Reason: Heartburn/Nausea Aspirin (Aspirin 81 Mg Tab.Chew) 81 mg PO DAILY [facility] Last Admin: 03/16/25 08:13 Dose: 81 mg Atorvastatin Calcium (Atorvastatin Calcium 80 Mg Tablet) 80 mg PO BEDTIME [facility] Last Admin: 03/15/25 22:08 Dose: 80 mg Calcium Polycarbophil (Calcium Polycarbophil Tablet) 1 tab PO DAILY [facility] Last Admin: 03/16/25 08:13 Dose: 1 tab Clopidogrel Bisulfate (Clopidogrel Bisulfate 75 Mg Tablet) 75 mg PO DAILY [facility] Last Admin: 03/16/25 08:12 Dose: 75 mg Cyanocobalamin (Cyanocobalamin (Vitamin B-12) 1,000 Mcg Tablet) 1,000 mcg PO DAILY [facility] Last Admin: 03/16/25 08:12 Dose: 1,000 mcg Diazepam (Diazepam 5 Mg Tablet) 10 mg PO TID [facility] Last Admin: 03/16/25 15:44 Dose: 10 mg Finasteride (Finasteride 5 Mg Tablet) 5 mg PO DAILY [facility] Last Admin: 03/16/25 08:17 Dose: 5 mg Lamotrigine (Lamotrigine 100 Mg Tablet) 100 mg PO BID [facility] Last Admin: 03/16/25 08:17 Dose: 100 mg Lamotrigine (Lamotrigine 25 Mg Tablet) 50 mg PO BID [facility] Last Admin: 03/16/25 08:12 Dose: 50 mg Magnesium Hydroxide (Milk Of Magnesia 30 Ml Oral.Susp) 30 ml PO DAILY PRN PRN Reason: Constipation Nicotine (Nicotine 21 Mg Patch.Td24) 21 mg TRANSDERMA DAILY PRN PRN Reason: nicotine craving Nicotine Polacrilex (Nicotine Polacrilex 2 Mg Gum) 2 mg BUCCAL Q2H PRN PRN Reason: Nicotine Cravings Olanzapine (Olanzapine 7.5 Mg Tablet) 7.5 mg PO TID [facility] Last Admin: 03/16/25 15:44 Dose: 7.5 mg Olanzapine (Olanzapine Odt 10 Mg Tab.Rapdis) 10 mg TRANSLINGU Q6H PRN PRN Reason: agitation or psychosis Last Admin: 03/15/25 12:11 Dose: 10 mg Oxcarbazepine (Oxcarbazepine 300 Mg Tablet) 600 mg PO BID [facility] Last Admin: 03/16/25 08:12 Dose: 600 mg Sertraline HCl (Sertraline Hcl 50 Mg Tablet) 50 mg PO BEDTIME [facility] Last Admin: 03/15/25 22:08 Dose: 50 mg Thiamine HCl (Thiamine Hcl 100 Mg Tablet) 100 mg PO DAILY [facility] Last Admin: 03/16/25 08:13 Dose: 100 mg Trazodone HCl (Trazodone Hcl 50 Mg Tablet) 150 mg PO BEDTIME [facility] Last Admin: 03/15/25 22:07 Dose: 150 mg Trazodone HCl (Trazodone Hcl 50 Mg Tablet) 50 mg PO BEDTIME PRN PRN Reason: Insomnia Last Admin: 03/14/25 02:53 Dose: 50 mg Allergies Allergies Allergy/AdvReac Type Severity Reaction Status Date / Time lisinopril Allergy Mild Unknown Verified 02/22/25 11:20 codeine Allergy Unknown Verified 02/22/25 11:20 Assessment & Plan Assessment & Plan (1) Major neurocognitive disorder due to another medical condition with behavioral disturbance: Status: Acute Code(s): F02.818 - Dementia in other diseases classified elsewhere, unspecified severity, with other behavioral disturbance Plan Mr. 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 medical work up is unremarkable. He was started on ceftin for UTI- however, UA has leukocytosis but no nitrites nor bacteria (will stop ceftin). recommend increasing trileptal to 300mg po BID, continue olanzapine 7.5mg po BID. Continue trazodone 100mg po qhs. Will restart clonazepam 0.25mg po BID. Will monitor oversedation. PLAN 02/28 increase trileptal to 300mg po BID, continue olanzapine 7.5mg po BID, start/restart clonazepam 0.25mg po BID. Monitor over sedation. Continue Sertraline 50mg po daily. 03/04 continue increased clonazepam to 0.25mg po TID, trileptal 300mg po BID, olanzapine 7.5mg po BID. trazodone 100mg po qhs and sertraline 50mg po daily. 03/05 continue tx. 03/06 family meeting, plan to continue titrating medications and assess for therapeutic effect. 03/07 continue tx. 03/10 switch clonazepam to diazepam. continue olanzapine and trileptal. 03/11 difficulty sleeping, just changed to diazepam. continue medication regimen. 03/12 continue tx. 03/13 continue tx. restart prn olanzapine. 03/14 increase diazepam 10mg po TID. 03/15: monitor on diazepam 03/16: continue to monitor Patient educated on: diagnosis and medication risk/benefits Informed Consent: further education needed Reason for continued inpatient stay Substantial Risk for: inability to function and rapid decompensation Time Spent With Patient Time: Total time managing care of this patient today _15___ minutes.
[2025-03-17] MEDS: OLANZapine ODT 10 MG TAB.RAPDIS TRANSLINGU (02:44)
[2025-03-17 08:00] VITALS: BP 114/69; PULSE 72; RESP 18; TEMP 36.8; O2SAT 96
--- NOTE | 2025-03-17 08:41 | HO.PSYCHPN ---
Subjective Subjective Date of Service: 03/17/25 Reason For Visit: increased paranoid Subjective Notes: Conditional Voluntary Healthcare Proxy: Yes Interim History: Pt slept through the night. He presents as calm most of the day. He is taking medications as prescribed. VS stable, continues on one to one due to risk for falls and impulsive behaviors. Review of Systems Review of Systems Denies shortness of breath, dizziness, or any pain or discomfort Yes all other systems are reviewed and are negative Constitutional: Denies body ache(s), Denies chills and Denies fever(s) Eyes: Denies blurry vision Denies dizziness and Denies dry mouth Cardiovascular: Denies chest pain and Denies dyspnea on exertion Respiratory: Denies cough and Denies dyspnea on exertion Gastrointestinal: Denies abdominal pain Musculoskeletal: Denies back pain and Denies arthralgias Skin/Breast: Denies rash Denies dizziness Psychiatric: Denies anxiety, Denies depression, Denies visual hallucinations, Denies homicidal ideation and Denies suicidal ideation Mental Status Exam Mental Status Exam Narrative: Appearance:wearing hospital gown, fair hygiene, in NAD Behavior: sitting in hallway Psychomotor: slowing Speech: mostly clear, normal rate/rhythm/volume, spontaneous TP: mostly linear TC: paucity of spontaneous material Mood: okay Affect: congruent, non labile SI: denies HI: denies VH/AH: denies Delusions: confabulation insight/judgment: significantly impaired memory/cog: alert, oriented only to self. severely impaired. Diagnostics Vital Signs (24Hr): BMI result Body Mass Index 19.6 Labs 03/13/25 07:30 03/13/25 07:30 Imaging Radiology Impressions: ITS Impressions Wrist X-Ray 03/05/25 10:28 IMPRESSION: Nonspecific cystic like lucency is present in the radial half of the lunate. It has nonaggressive features. Electronically signed by: Rell Fernando MD 03/05/2025 10:42 AM EDT Medications Medications Current Medications Acetaminophen (Acetaminophen 325 Mg Tablet) 650 mg PO Q6H PRN PRN Reason: Headache/Pain, Scale 1-10 Last Admin: 03/17/25 02:44 Dose: 650 mg Al Hydroxide/Mg Hydroxide (Magnesium Hydrox/Alum Hydrox 30 Ml Oral.Susp) 30 ml PO Q6H PRN PRN Reason: Heartburn/Nausea Aspirin (Aspirin 81 Mg Tab.Chew) 81 mg PO DAILY [facility] Last Admin: 03/16/25 08:13 Dose: 81 mg Atorvastatin Calcium (Atorvastatin Calcium 80 Mg Tablet) 80 mg PO BEDTIME [facility] Last Admin: 03/16/25 21:42 Dose: 80 mg Calcium Polycarbophil (Calcium Polycarbophil Tablet) 1 tab PO DAILY [facility] Last Admin: 03/16/25 08:13 Dose: 1 tab Clopidogrel Bisulfate (Clopidogrel Bisulfate 75 Mg Tablet) 75 mg PO DAILY [facility] Last Admin: 03/16/25 08:12 Dose: 75 mg Cyanocobalamin (Cyanocobalamin (Vitamin B-12) 1,000 Mcg Tablet) 1,000 mcg PO DAILY [facility] Last Admin: 03/16/25 08:12 Dose: 1,000 mcg Diazepam (Diazepam 5 Mg Tablet) 10 mg PO TID [facility] Last Admin: 03/16/25 21:41 Dose: 10 mg Finasteride (Finasteride 5 Mg Tablet) 5 mg PO DAILY [facility] Last Admin: 03/16/25 08:17 Dose: 5 mg Lamotrigine (Lamotrigine 100 Mg Tablet) 100 mg PO BID [facility] Last Admin: 03/16/25 21:42 Dose: 100 mg Lamotrigine (Lamotrigine 25 Mg Tablet) 50 mg PO BID [facility] Last Admin: 03/16/25 21:41 Dose: 50 mg Magnesium Hydroxide (Milk Of Magnesia 30 Ml Oral.Susp) 30 ml PO DAILY PRN PRN Reason: Constipation Nicotine (Nicotine 21 Mg Patch.Td24) 21 mg TRANSDERMA DAILY PRN PRN Reason: nicotine craving Nicotine Polacrilex (Nicotine Polacrilex 2 Mg Gum) 2 mg BUCCAL Q2H PRN PRN Reason: Nicotine Cravings Olanzapine (Olanzapine 7.5 Mg Tablet) 7.5 mg PO TID [facility] Last Admin: 03/16/25 21:41 Dose: 7.5 mg Olanzapine (Olanzapine Odt 10 Mg Tab.Rapdis) 10 mg TRANSLINGU Q6H PRN PRN Reason: agitation or psychosis Last Admin: 03/17/25 02:44 Dose: 10 mg Oxcarbazepine (Oxcarbazepine 300 Mg Tablet) 600 mg PO BID [facility] Last Admin: 03/16/25 21:41 Dose: 600 mg Sertraline HCl (Sertraline Hcl 50 Mg Tablet) 50 mg PO BEDTIME [facility] Last Admin: 03/16/25 21:42 Dose: 50 mg Thiamine HCl (Thiamine Hcl 100 Mg Tablet) 100 mg PO DAILY [facility] Last Admin: 03/16/25 08:13 Dose: 100 mg Trazodone HCl (Trazodone Hcl 50 Mg Tablet) 150 mg PO BEDTIME [facility] Last Admin: 03/16/25 21:41 Dose: 150 mg Trazodone HCl (Trazodone Hcl 50 Mg Tablet) 50 mg PO BEDTIME PRN PRN Reason: Insomnia Last Admin: 03/14/25 02:53 Dose: 50 mg Allergies Allergies Allergy/AdvReac Type Severity Reaction Status Date / Time lisinopril Allergy Mild Unknown Verified 02/22/25 11:20 codeine Allergy Unknown Verified 02/22/25 11:20 Assessment & Plan Assessment & Plan (1) Major neurocognitive disorder due to another medical condition with behavioral disturbance: Status: Acute Code(s): F02.818 - Dementia in other diseases classified elsewhere, unspecified severity, with other behavioral disturbance Plan Mr. 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 medical work up is unremarkable. He was started on ceftin for UTI- however, UA has leukocytosis but no nitrites nor bacteria (will stop ceftin). recommend increasing trileptal to 300mg po BID, continue olanzapine 7.5mg po BID. Continue trazodone 100mg po qhs. Will restart clonazepam 0.25mg po BID. Will monitor oversedation. PLAN 02/28 increase trileptal to 300mg po BID, continue olanzapine 7.5mg po BID, start/restart clonazepam 0.25mg po BID. Monitor over sedation. Continue Sertraline 50mg po daily. 03/04 continue increased clonazepam to 0.25mg po TID, trileptal 300mg po BID, olanzapine 7.5mg po BID. trazodone 100mg po qhs and sertraline 50mg po daily. 03/05 continue tx. 03/06 family meeting, plan to continue titrating medications and assess for therapeutic effect. 03/07 continue tx. 9/8 switch clonazepam to diazepam. continue olanzapine and trileptal. 03/11 difficulty sleeping, just changed to diazepam. continue medication regimen. 03/12 continue tx. 03/13 continue tx. restart prn olanzapine. 03/14 increase diazepam 10mg po TID. 03/15: monitor on diazepam 03/16: continue to monitor 03/17 continue tx. Reason for continued inpatient stay Substantial Risk for: inability to function Time Spent With Patient Time: Total time managing care of this patient today ____ minutes.
[2025-03-17] MEDS: calcium polycarbophiL TABLET 1 TAB PO (09:10)
[2025-03-17] MEDS: OLANZapine 7.5 MG TABLET PO ×3 (09:11→21:36)
[2025-03-17 20:00] VITALS: PULSE 72; RESP 18; TEMP 37.5; O2SAT 97
[2025-03-18 07:55] VITALS: BP 104/61; PULSE 57; RESP 18; TEMP 36.4; O2SAT 98
[2025-03-18] MEDS: OLANZapine 7.5 MG TABLET PO ×3 (08:30→20:36)
[2025-03-18] MEDS: calcium polycarbophiL TABLET 1 TAB PO (08:31)
--- NOTE | 2025-03-18 11:36 | HO.PSYCHPN ---
Subjective Subjective Date of Service: 03/18/25 Reason For Visit: increased paranoid Subjective Notes: Conditional Voluntary Healthcare Proxy: Yes Interim History: Pt slept through the night.He was up for meals but slept in between. He is not oriented to place or situation, nor month nor year. He continues on a one to one due to risk for falls. No behavioral concerns. Review of Systems Review of Systems Denies shortness of breath, dizziness, or any pain or discomfort Yes all other systems are reviewed and are negative Constitutional: Denies body ache(s), Denies chills and Denies fever(s) Eyes: Denies blurry vision Denies dizziness and Denies dry mouth Cardiovascular: Denies chest pain and Denies dyspnea on exertion Respiratory: Denies cough and Denies dyspnea on exertion Gastrointestinal: Denies abdominal pain Musculoskeletal: Denies back pain and Denies arthralgias Skin/Breast: Denies rash Denies dizziness Psychiatric: Denies anxiety, Denies depression, Denies visual hallucinations, Denies homicidal ideation and Denies suicidal ideation Mental Status Exam Mental Status Exam Narrative: Appearance:wearing hospital gown, fair hygiene, in NAD Behavior: sitting in hallway Psychomotor: slowing Speech: mostly clear, normal rate/rhythm/volume, spontaneous TP: mostly linear TC: paucity of spontaneous material Mood: okay Affect: congruent, non labile SI: denies HI: denies VH/AH: denies Delusions: confabulation insight/judgment: significantly impaired memory/cog: alert, oriented only to self. severely impaired. Diagnostics Vital Signs (24Hr): Vital Signs - 24 hr 03/17/25 20:00 03/18/25 07:55 Temperature 99.5 F 97.6 F Pulse Rate 72 57 Respiratory Rate 18 18 Blood Pressure 104/61 Pulse Oximetry 97 98 Oxygen Delivery Method Room Air Room Air BMI result Body Mass Index 19.6 Labs 03/13/25 07:30 03/13/25 07:30 Imaging Radiology Impressions: ITS Impressions Wrist X-Ray 03/05/25 10:28 IMPRESSION: Nonspecific cystic like lucency is present in the radial half of the lunate. It has nonaggressive features. Electronically signed by: Rell Fernando MD 03/05/2025 10:42 AM EDT Medications Medications Current Medications Acetaminophen (Acetaminophen 325 Mg Tablet) 650 mg PO Q6H PRN PRN Reason: Headache/Pain, Scale 1-10 Last Admin: 03/17/25 21:36 Dose: 650 mg Al Hydroxide/Mg Hydroxide (Magnesium Hydrox/Alum Hydrox 30 Ml Oral.Susp) 30 ml PO Q6H PRN PRN Reason: Heartburn/Nausea Aspirin (Aspirin 81 Mg Tab.Chew) 81 mg PO DAILY [facility] Last Admin: 03/18/25 08:31 Dose: 81 mg Atorvastatin Calcium (Atorvastatin Calcium 80 Mg Tablet) 80 mg PO BEDTIME [facility] Last Admin: 03/17/25 21:37 Dose: 80 mg Calcium Polycarbophil (Calcium Polycarbophil Tablet) 1 tab PO DAILY [facility] Last Admin: 03/18/25 08:31 Dose: 1 tab Clopidogrel Bisulfate (Clopidogrel Bisulfate 75 Mg Tablet) 75 mg PO DAILY [facility] Last Admin: 03/18/25 08:31 Dose: 75 mg Cyanocobalamin (Cyanocobalamin (Vitamin B-12) 1,000 Mcg Tablet) 1,000 mcg PO DAILY [facility] Last Admin: 03/18/25 08:31 Dose: 1,000 mcg Diazepam (Diazepam 5 Mg Tablet) 10 mg PO TID [facility] Last Admin: 03/18/25 08:30 Dose: 10 mg Finasteride (Finasteride 5 Mg Tablet) 5 mg PO DAILY [facility] Last Admin: 03/18/25 08:30 Dose: 5 mg Lamotrigine (Lamotrigine 100 Mg Tablet) 100 mg PO BID [facility] Last Admin: 03/18/25 08:30 Dose: 100 mg Lamotrigine (Lamotrigine 25 Mg Tablet) 50 mg PO BID [facility] Last Admin: 03/18/25 08:30 Dose: 50 mg Magnesium Hydroxide (Milk Of Magnesia 30 Ml Oral.Susp) 30 ml PO DAILY PRN PRN Reason: Constipation Nicotine (Nicotine 21 Mg Patch.Td24) 21 mg TRANSDERMA DAILY PRN PRN Reason: nicotine craving Nicotine Polacrilex (Nicotine Polacrilex 2 Mg Gum) 2 mg BUCCAL Q2H PRN PRN Reason: Nicotine Cravings Olanzapine (Olanzapine 7.5 Mg Tablet) 7.5 mg PO TID [facility] Last Admin: 03/18/25 08:30 Dose: 7.5 mg Olanzapine (Olanzapine Odt 10 Mg Tab.Rapdis) 10 mg TRANSLINGU Q6H PRN PRN Reason: agitation or psychosis Last Admin: 03/17/25 02:44 Dose: 10 mg Oxcarbazepine (Oxcarbazepine 300 Mg Tablet) 600 mg PO BID [facility] Last Admin: 03/18/25 08:30 Dose: 600 mg Sertraline HCl (Sertraline Hcl 50 Mg Tablet) 50 mg PO BEDTIME [facility] Last Admin: 03/17/25 21:36 Dose: 50 mg Thiamine HCl (Thiamine Hcl 100 Mg Tablet) 100 mg PO DAILY [facility] Last Admin: 03/18/25 08:31 Dose: 100 mg Trazodone HCl (Trazodone Hcl 50 Mg Tablet) 150 mg PO BEDTIME [facility] Last Admin: 03/17/25 21:36 Dose: 150 mg Trazodone HCl (Trazodone Hcl 50 Mg Tablet) 50 mg PO BEDTIME PRN PRN Reason: Insomnia Last Admin: 03/14/25 02:53 Dose: 50 mg Allergies Allergies Allergy/AdvReac Type Severity Reaction Status Date / Time lisinopril Allergy Mild Unknown Verified 02/22/25 11:20 codeine Allergy Unknown Verified 02/22/25 11:20 Assessment & Plan Assessment & Plan (1) Major neurocognitive disorder due to another medical condition with behavioral disturbance: Status: Acute Code(s): F02.818 - Dementia in other diseases classified elsewhere, unspecified severity, with other behavioral disturbance Plan Mr. 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 medical work up is unremarkable. He was started on ceftin for UTI- however, UA has leukocytosis but no nitrites nor bacteria (will stop ceftin). recommend increasing trileptal to 300mg po BID, continue olanzapine 7.5mg po BID. Continue trazodone 100mg po qhs. Will restart clonazepam 0.25mg po BID. Will monitor oversedation. PLAN 02/28 increase trileptal to 300mg po BID, continue olanzapine 7.5mg po BID, start/restart clonazepam 0.25mg po BID. Monitor over sedation. Continue Sertraline 50mg po daily. 03/04 continue increased clonazepam to 0.25mg po TID, trileptal 300mg po BID, olanzapine 7.5mg po BID. trazodone 100mg po qhs and sertraline 50mg po daily. 03/05 continue tx. 03/06 family meeting, plan to continue titrating medications and assess for therapeutic effect. 03/07 continue tx. 03/10 switch clonazepam to diazepam. continue olanzapine and trileptal. 03/11 difficulty sleeping, just changed to diazepam. continue medication regimen. 03/12 continue tx. 03/13 continue tx. restart prn olanzapine. 03/14 increase diazepam 10mg po TID. 03/15: monitor on diazepam 03/16: continue to monitor 03/17 continue tx. 03/18 continue tx. Reason for continued inpatient stay Substantial Risk for: inability to function Time Spent With Patient Time: Total time managing care of this patient today ____ minutes.
[2025-03-18] MEDS: OLANZapine ODT 10 MG TAB.RAPDIS TRANSLINGU (12:01)
[2025-03-19 07:49] VITALS: BP 114/63; PULSE 79; RESP 18; TEMP 36.4; O2SAT 95
[2025-03-19] MEDS: OLANZapine 7.5 MG TABLET PO ×3 (08:01→19:58)
[2025-03-19] MEDS: calcium polycarbophiL TABLET 1 TAB PO (08:02)
--- NOTE | 2025-03-19 14:06 | MHC.CLN ---
F/U DIET RX REGULAR. CONTINUES WITH VARIABLE PO INTAKE WITH AT LEAST ONE MEAL PER DAY 100%. BMI=19.6. PATIENT IS THIN BUT DOES NOT APPEAR TO BE MALNOURISHED. NO NUTRITIONAL SUPPLEMENT AT THIS TIME. RD TO MONITOR WEEKLY.
--- NOTE | 2025-03-19 19:31 | HO.PSYCHPN ---
Subjective Subjective Date of Service: 03/19/25 Reason For Visit: increased paranoid Subjective Notes: Conditional Voluntary Healthcare Proxy: Yes Interim History: Pt slept through the night.He was up for meals but slept in between.He presented as more dis inhibited, asking female staff to sleep with him. He is not oriented to place or situation, nor month nor year. He continues on a one to one due to risk for falls. No behavioral concerns. Review of Systems Review of Systems Denies shortness of breath, dizziness, or any pain or discomfort Yes all other systems are reviewed and are negative Constitutional: Denies body ache(s), Denies chills and Denies fever(s) Eyes: Denies blurry vision Denies dizziness and Denies dry mouth Cardiovascular: Denies chest pain and Denies dyspnea on exertion Respiratory: Denies cough and Denies dyspnea on exertion Gastrointestinal: Denies abdominal pain Musculoskeletal: Denies back pain and Denies arthralgias Skin/Breast: Denies rash Denies dizziness Psychiatric: Denies anxiety, Denies depression, Denies visual hallucinations, Denies homicidal ideation and Denies suicidal ideation Mental Status Exam Mental Status Exam Narrative: Appearance:wearing hospital gown, fair hygiene, in NAD Behavior: sitting in hallway Psychomotor: slowing Speech: mostly clear, normal rate/rhythm/volume, spontaneous TP: mostly linear TC: paucity of spontaneous material Mood: okay Affect: congruent, non labile SI: denies HI: denies VH/AH: denies Delusions: confabulation insight/judgment: significantly impaired memory/cog: alert, oriented only to self. severely impaired. Diagnostics Vital Signs (24Hr): Vital Signs - 24 hr 03/19/25 07:49 Temperature 97.6 F Pulse Rate 79 Respiratory Rate 18 Blood Pressure 114/63 Pulse Oximetry 95 Oxygen Delivery Method Room Air BMI result Body Mass Index 19.6 Labs 03/13/25 07:30 03/13/25 07:30 Imaging Radiology Impressions: ITS Impressions Wrist X-Ray 03/05/25 10:28 IMPRESSION: Nonspecific cystic like lucency is present in the radial half of the lunate. It has nonaggressive features. Electronically signed by: Rell Fernando MD 03/05/2025 10:42 AM EDT Medications Medications Current Medications Acetaminophen (Acetaminophen 325 Mg Tablet) 650 mg PO Q6H PRN PRN Reason: Headache/Pain, Scale 1-10 Last Admin: 03/17/25 21:36 Dose: 650 mg Al Hydroxide/Mg Hydroxide (Magnesium Hydrox/Alum Hydrox 30 Ml Oral.Susp) 30 ml PO Q6H PRN PRN Reason: Heartburn/Nausea Aspirin (Aspirin 81 Mg Tab.Chew) 81 mg PO DAILY [facility] Last Admin: 03/19/25 08:02 Dose: 81 mg Atorvastatin Calcium (Atorvastatin Calcium 80 Mg Tablet) 80 mg PO BEDTIME [facility] Last Admin: 03/18/25 20:35 Dose: 80 mg Calcium Polycarbophil (Calcium Polycarbophil Tablet) 1 tab PO DAILY [facility] Last Admin: 03/19/25 08:02 Dose: 1 tab Clopidogrel Bisulfate (Clopidogrel Bisulfate 75 Mg Tablet) 75 mg PO DAILY [facility] Last Admin: 03/19/25 08:01 Dose: 75 mg Cyanocobalamin (Cyanocobalamin (Vitamin B-12) 1,000 Mcg Tablet) 1,000 mcg PO DAILY [facility] Last Admin: 03/19/25 08:02 Dose: 1,000 mcg Diazepam (Diazepam 5 Mg Tablet) 10 mg PO TID [facility] Last Admin: 03/19/25 14:48 Dose: 10 mg Finasteride (Finasteride 5 Mg Tablet) 5 mg PO DAILY [facility] Last Admin: 03/19/25 08:02 Dose: 5 mg Lamotrigine (Lamotrigine 100 Mg Tablet) 100 mg PO BID [facility] Last Admin: 03/19/25 08:02 Dose: 100 mg Lamotrigine (Lamotrigine 25 Mg Tablet) 50 mg PO BID [facility] Last Admin: 03/19/25 08:02 Dose: 50 mg Magnesium Hydroxide (Milk Of Magnesia 30 Ml Oral.Susp) 30 ml PO DAILY PRN PRN Reason: Constipation Nicotine (Nicotine 21 Mg Patch.Td24) 21 mg TRANSDERMA DAILY PRN PRN Reason: nicotine craving Nicotine Polacrilex (Nicotine Polacrilex 2 Mg Gum) 2 mg BUCCAL Q2H PRN PRN Reason: Nicotine Cravings Olanzapine (Olanzapine 7.5 Mg Tablet) 7.5 mg PO TID [facility] Last Admin: 03/19/25 14:48 Dose: 7.5 mg Olanzapine (Olanzapine Odt 10 Mg Tab.Rapdis) 10 mg TRANSLINGU Q6H PRN PRN Reason: agitation or psychosis Last Admin: 03/18/25 12:01 Dose: 10 mg Oxcarbazepine (Oxcarbazepine 300 Mg Tablet) 600 mg PO BID [facility] Last Admin: 03/19/25 08:02 Dose: 600 mg Sertraline HCl (Sertraline Hcl 50 Mg Tablet) 50 mg PO BEDTIME [facility] Last Admin: 03/18/25 20:35 Dose: 50 mg Thiamine HCl (Thiamine Hcl 100 Mg Tablet) 100 mg PO DAILY [facility] Last Admin: 03/19/25 08:02 Dose: 100 mg Trazodone HCl (Trazodone Hcl 50 Mg Tablet) 150 mg PO BEDTIME [facility] Last Admin: 03/18/25 20:35 Dose: 150 mg Trazodone HCl (Trazodone Hcl 50 Mg Tablet) 50 mg PO BEDTIME PRN PRN Reason: Insomnia Last Admin: 03/18/25 20:36 Dose: 50 mg Allergies Allergies Allergy/AdvReac Type Severity Reaction Status Date / Time lisinopril Allergy Mild Unknown Verified 02/22/25 11:20 codeine Allergy Unknown Verified 02/22/25 11:20 Assessment & Plan Assessment & Plan (1) Major neurocognitive disorder due to another medical condition with behavioral disturbance: Status: Acute Code(s): F02.818 - Dementia in other diseases classified elsewhere, unspecified severity, with other behavioral disturbance Plan Mr. 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 medical work up is unremarkable. He was started on ceftin for UTI- however, UA has leukocytosis but no nitrites nor bacteria (will stop ceftin). recommend increasing trileptal to 300mg po BID, continue olanzapine 7.5mg po BID. Continue trazodone 100mg po qhs. Will restart clonazepam 0.25mg po BID. Will monitor oversedation. PLAN 02/28 increase trileptal to 300mg po BID, continue olanzapine 7.5mg po BID, start/restart clonazepam 0.25mg po BID. Monitor over sedation. Continue Sertraline 50mg po daily. 03/04 continue increased clonazepam to 0.25mg po TID, trileptal 300mg po BID, olanzapine 7.5mg po BID. trazodone 100mg po qhs and sertraline 50mg po daily. 03/05 continue tx. 03/06 family meeting, plan to continue titrating medications and assess for therapeutic effect. 03/07 continue tx. 03/10 switch clonazepam to diazepam. continue olanzapine and trileptal. 03/11 difficulty sleeping, just changed to diazepam. continue medication regimen. 03/12 continue tx. 03/13 continue tx. restart prn olanzapine. 03/14 increase diazepam 10mg po TID. 03/15: monitor on diazepam 03/16: continue to monitor 03/17 continue tx. 03/18 continue current tx. Reason for continued inpatient stay Substantial Risk for: inability to function Time Spent With Patient Time: Total time managing care of this patient today ____ minutes.
[2025-03-19 20:00] VITALS: BP 116/75; PULSE 76; RESP 16; TEMP 37.2; O2SAT 98
[2025-03-20 08:00] VITALS: BP 118/75; PULSE 71; RESP 17; TEMP 36.2; O2SAT 98
[2025-03-20 08:29] VITALS: BMI 21.0
[2025-03-20] MEDS: OLANZapine 7.5 MG TABLET PO ×3 (08:58→20:30)
[2025-03-20] MEDS: calcium polycarbophiL TABLET 1 TAB PO (08:58)
--- NOTE | 2025-03-20 09:03 | P.PNPSI_ITS ---
Subjective Subjective Date of Service: 03/20/25 Reason For Visit: increased paranoid Subjective Notes: Conditional Voluntary Healthcare Proxy: Yes Interim History: Pt slept through the night. Pt has been awake during meals. He asks this account underwriter where he is. This account underwriter told him he is in the hospital. He continues to ask same question some minutes after. Less hypersexual. No aggression. VS stable. Taking medications. Medication Compliance: Yes Review of Systems Review of Systems Denies shortness of breath, dizziness, or any pain or discomfort Yes all other systems are reviewed and are negative Constitutional: Denies body ache(s), Denies chills and Denies fever(s) Eyes: Denies blurry vision Denies dizziness and Denies dry mouth Cardiovascular: Denies chest pain and Denies dyspnea on exertion Respiratory: Denies cough and Denies dyspnea on exertion Gastrointestinal: Denies abdominal pain Musculoskeletal: Denies back pain and Denies arthralgias Skin/Breast: Denies rash Denies dizziness Psychiatric: Denies anxiety, Denies depression, Denies visual hallucinations, Denies homicidal ideation and Denies suicidal ideation Mental Status Exam Mental Status Exam Narrative: Appearance:wearing hospital gown, fair hygiene, in NAD Behavior: sitting in hallway Psychomotor: slowing Speech: mostly clear, normal rate/rhythm/volume, spontaneous TP: mostly linear TC: paucity of spontaneous material Mood: okay Affect: congruent, non labile SI: denies HI: denies VH/AH: denies Delusions: confabulation insight/judgment: significantly impaired memory/cog: alert, oriented only to self. severely impaired. Diagnostics Vital Signs (24Hr): Vital Signs - 24 hr 03/19/25 20:00 Temperature 98.9 F Pulse Rate 76 Respiratory Rate 16 Blood Pressure 116/75 Pulse Oximetry 98 Oxygen Delivery Method Room Air BMI result Body Mass Index 21.0 Labs 03/13/25 07:30 03/13/25 07:30 Imaging Radiology Impressions: ITS Impressions Wrist X-Ray 03/05/25 10:28 IMPRESSION: Nonspecific cystic like lucency is present in the radial half of the lunate. It has nonaggressive features. Electronically signed by: Rell Fernando MD 03/05/2025 10:42 AM EDT Medications Medications Current Medications Acetaminophen (Acetaminophen 325 Mg Tablet) 650 mg PO Q6H PRN PRN Reason: Headache/Pain, Scale 1-10 Last Admin: 03/17/25 21:36 Dose: 650 mg Al Hydroxide/Mg Hydroxide (Magnesium Hydrox/Alum Hydrox 30 Ml Oral.Susp) 30 ml PO Q6H PRN PRN Reason: Heartburn/Nausea Aspirin (Aspirin 81 Mg Tab.Chew) 81 mg PO DAILY [facility] Last Admin: 03/20/25 08:58 Dose: 81 mg Atorvastatin Calcium (Atorvastatin Calcium 80 Mg Tablet) 80 mg PO BEDTIME [facility] Last Admin: 03/19/25 19:59 Dose: 80 mg Calcium Polycarbophil (Calcium Polycarbophil Tablet) 1 tab PO DAILY [facility] Last Admin: 03/20/25 08:58 Dose: 1 tab Clopidogrel Bisulfate (Clopidogrel Bisulfate 75 Mg Tablet) 75 mg PO DAILY [facility] Last Admin: 03/20/25 08:58 Dose: 75 mg Cyanocobalamin (Cyanocobalamin (Vitamin B-12) 1,000 Mcg Tablet) 1,000 mcg PO DAILY [facility] Last Admin: 03/20/25 08:58 Dose: 1,000 mcg Diazepam (Diazepam 5 Mg Tablet) 10 mg PO TID [facility] Last Admin: 03/20/25 08:58 Dose: 10 mg Finasteride (Finasteride 5 Mg Tablet) 5 mg PO DAILY [facility] Last Admin: 03/20/25 09:00 Dose: 5 mg Lamotrigine (Lamotrigine 100 Mg Tablet) 100 mg PO BID [facility] Last Admin: 03/20/25 08:58 Dose: 100 mg Lamotrigine (Lamotrigine 25 Mg Tablet) 50 mg PO BID [facility] Last Admin: 03/20/25 08:57 Dose: 50 mg Magnesium Hydroxide (Milk Of Magnesia 30 Ml Oral.Susp) 30 ml PO DAILY PRN PRN Reason: Constipation Nicotine (Nicotine 21 Mg Patch.Td24) 21 mg TRANSDERMA DAILY PRN PRN Reason: nicotine craving Nicotine Polacrilex (Nicotine Polacrilex 2 Mg Gum) 2 mg BUCCAL Q2H PRN PRN Reason: Nicotine Cravings Olanzapine (Olanzapine 7.5 Mg Tablet) 7.5 mg PO TID [facility] Last Admin: 03/20/25 08:58 Dose: 7.5 mg Olanzapine (Olanzapine Odt 10 Mg Tab.Rapdis) 10 mg TRANSLINGU Q6H PRN PRN Reason: agitation or psychosis Last Admin: 03/18/25 12:01 Dose: 10 mg Oxcarbazepine (Oxcarbazepine 300 Mg Tablet) 600 mg PO BID [facility] Last Admin: 03/20/25 08:57 Dose: 600 mg Sertraline HCl (Sertraline Hcl 50 Mg Tablet) 50 mg PO BEDTIME [facility] Last Admin: 03/19/25 19:59 Dose: 50 mg Thiamine HCl (Thiamine Hcl 100 Mg Tablet) 100 mg PO DAILY [facility] Last Admin: 03/20/25 08:56 Dose: 100 mg Trazodone HCl (Trazodone Hcl 50 Mg Tablet) 150 mg PO BEDTIME [facility] Last Admin: 03/19/25 19:59 Dose: 150 mg Trazodone HCl (Trazodone Hcl 50 Mg Tablet) 50 mg PO BEDTIME PRN PRN Reason: Insomnia Last Admin: 03/18/25 20:36 Dose: 50 mg Allergies Allergies Allergy/AdvReac Type Severity Reaction Status Date / Time lisinopril Allergy Mild Unknown Verified 02/22/25 11:20 codeine Allergy Unknown Verified 02/22/25 11:20 Assessment & Plan Assessment & Plan (1) Major neurocognitive disorder due to another medical condition with behavioral disturbance: Status: Acute Code(s): F02.818 - Dementia in other diseases classified elsewhere, unspecified severity, with other behavioral disturbance Plan Mr. 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 medical work up is unremarkable. He was started on ceftin for UTI- however, UA has leukocytosis but no nitrites nor bacteria (will stop ceftin). recommend increasing trileptal to 300mg po BID, continue olanzapine 7.5mg po BID. Continue trazodone 100mg po qhs. Will restart clonazepam 0.25mg po BID. Will monitor oversedation. PLAN 02/28 increase trileptal to 300mg po BID, continue olanzapine 7.5mg po BID, start/restart clonazepam 0.25mg po BID. Monitor over sedation. Continue Sertraline 50mg po daily. 03/04 continue increased clonazepam to 0.25mg po TID, trileptal 300mg po BID, olanzapine 7.5mg po BID. trazodone 100mg po qhs and sertraline 50mg po daily. 03/05 continue tx. 03/06 family meeting, plan to continue titrating medications and assess for therapeutic effect. 03/07 continue tx. 03/10 switch clonazepam to diazepam. continue olanzapine and trileptal. 03/11 difficulty sleeping, just changed to diazepam. continue medication regimen. 03/12 continue tx. 03/13 continue tx. restart prn olanzapine. 03/14 increase diazepam 10mg po TID. 03/15: monitor on diazepam 03/16: continue to monitor 03/17 continue tx. 03/18 continue current tx. 03/19 continue tx. 03/20 continue tx. Reason for continued inpatient stay Substantial Risk for: inability to function Time Spent With Patient Time: Total time managing care of this patient today ____ minutes.
[2025-03-20 20:00] VITALS: BP 114/65; PULSE 64; RESP 18; TEMP 36.1; O2SAT 94
[2025-03-21 08:00] VITALS: BP 113/76; PULSE 84; RESP 16; TEMP 2.7; TEMP 36.9; O2SAT 95
[2025-03-21 09:26] VITALS: BP 113/76; PULSE 84; RESP 16; TEMP 36.9; O2SAT 95
[2025-03-21] MEDS: calcium polycarbophiL TABLET 1 TAB PO (09:29)
[2025-03-21] MEDS: OLANZapine 7.5 MG TABLET PO ×3 (09:29→19:59)
--- NOTE | 2025-03-21 15:54 | P.PNPSI_ITS ---
Subjective Subjective Date of Service: 03/21/25 Reason For Visit: increased paranoid Subjective Notes: Conditional Voluntary Healthcare Proxy: Yes Interim History: Pt slept 4hrs. Pt has been awake during meals. He asks this race and sports book writer where he is. This race and sports book writer told him he is in the hospital. He continues to ask same question some minutes after. Less hypersexual. No aggression. VS stable. Taking medications. Review of Systems Review of Systems Denies shortness of breath, dizziness, or any pain or discomfort Yes all other systems are reviewed and are negative Constitutional: Denies body ache(s), Denies chills and Denies fever(s) Eyes: Denies blurry vision Denies dizziness and Denies dry mouth Cardiovascular: Denies chest pain and Denies dyspnea on exertion Respiratory: Denies cough and Denies dyspnea on exertion Gastrointestinal: Denies abdominal pain Musculoskeletal: Denies back pain and Denies arthralgias Skin/Breast: Denies rash Denies dizziness Psychiatric: Denies anxiety, Denies depression, Denies visual hallucinations, Denies homicidal ideation and Denies suicidal ideation Mental Status Exam Mental Status Exam Narrative: Appearance:wearing hospital gown, fair hygiene, in NAD Behavior: sitting in hallway Psychomotor: slowing Speech: mostly clear, normal rate/rhythm/volume, spontaneous TP: mostly linear TC: paucity of spontaneous material Mood: okay Affect: congruent, non labile SI: denies HI: denies VH/AH: denies Delusions: confabulation insight/judgment: significantly impaired memory/cog: alert, oriented only to self. severely impaired. Diagnostics Vital Signs (24Hr): Vital Signs - 24 hr 03/20/25 20:00 03/21/25 08:00 03/21/25 09:26 Temperature 97 F 36.9 F L 98.4 F Pulse Rate 64 84 84 Respiratory Rate 18 16 16 Blood Pressure 114/65 113/76 113/76 Pulse Oximetry 94 95 95 Oxygen Delivery Method Room Air Room Air Room Air BMI result Body Mass Index 21.0 Labs 03/13/25 07:30 03/13/25 07:30 Imaging Radiology Impressions: ITS Impressions Wrist X-Ray 03/05/25 10:28 IMPRESSION: Nonspecific cystic like lucency is present in the radial half of the lunate. It has nonaggressive features. Electronically signed by: Rell Fernando MD 03/05/2025 10:42 AM EDT Medications Medications Current Medications Acetaminophen (Acetaminophen 325 Mg Tablet) 650 mg PO Q6H PRN PRN Reason: Headache/Pain, Scale 1-10 Last Admin: 03/20/25 11:26 Dose: 650 mg Al Hydroxide/Mg Hydroxide (Magnesium Hydrox/Alum Hydrox 30 Ml Oral.Susp) 30 ml PO Q6H PRN PRN Reason: Heartburn/Nausea Aspirin (Aspirin 81 Mg Tab.Chew) 81 mg PO DAILY [facility] Last Admin: 03/21/25 09:29 Dose: 81 mg Atorvastatin Calcium (Atorvastatin Calcium 80 Mg Tablet) 80 mg PO BEDTIME [facility] Last Admin: 03/20/25 20:30 Dose: 80 mg Calcium Polycarbophil (Calcium Polycarbophil Tablet) 1 tab PO DAILY [facility] Last Admin: 03/21/25 09:29 Dose: 1 tab Clopidogrel Bisulfate (Clopidogrel Bisulfate 75 Mg Tablet) 75 mg PO DAILY [facility] Last Admin: 03/21/25 09:29 Dose: 75 mg Cyanocobalamin (Cyanocobalamin (Vitamin B-12) 1,000 Mcg Tablet) 1,000 mcg PO DAILY [facility] Last Admin: 03/21/25 09:30 Dose: 1,000 mcg Diazepam (Diazepam 5 Mg Tablet) 10 mg PO TID [facility] Last Admin: 03/21/25 14:23 Dose: 10 mg Finasteride (Finasteride 5 Mg Tablet) 5 mg PO DAILY [facility] Last Admin: 03/21/25 09:34 Dose: 5 mg Lamotrigine (Lamotrigine 100 Mg Tablet) 100 mg PO BID [facility] Last Admin: 03/21/25 09:29 Dose: 100 mg Lamotrigine (Lamotrigine 25 Mg Tablet) 50 mg PO BID [facility] Last Admin: 03/21/25 09:30 Dose: 50 mg Magnesium Hydroxide (Milk Of Magnesia 30 Ml Oral.Susp) 30 ml PO DAILY PRN PRN Reason: Constipation Nicotine (Nicotine 21 Mg Patch.Td24) 21 mg TRANSDERMA DAILY PRN PRN Reason: nicotine craving Nicotine Polacrilex (Nicotine Polacrilex 2 Mg Gum) 2 mg BUCCAL Q2H PRN PRN Reason: Nicotine Cravings Olanzapine (Olanzapine 7.5 Mg Tablet) 7.5 mg PO TID [facility] Last Admin: 03/21/25 14:23 Dose: 7.5 mg Olanzapine (Olanzapine Odt 10 Mg Tab.Rapdis) 10 mg TRANSLINGU Q6H PRN PRN Reason: agitation or psychosis Last Admin: 03/18/25 12:01 Dose: 10 mg Oxcarbazepine (Oxcarbazepine 300 Mg Tablet) 600 mg PO BID [facility] Last Admin: 03/21/25 09:29 Dose: 600 mg Sertraline HCl (Sertraline Hcl 50 Mg Tablet) 50 mg PO BEDTIME [facility] Last Admin: 03/20/25 20:30 Dose: 50 mg Thiamine HCl (Thiamine Hcl 100 Mg Tablet) 100 mg PO DAILY [facility] Last Admin: 03/21/25 09:29 Dose: 100 mg Trazodone HCl (Trazodone Hcl 50 Mg Tablet) 50 mg PO BEDTIME PRN PRN Reason: Insomnia Last Admin: 03/18/25 20:36 Dose: 50 mg Trazodone HCl (Trazodone Hcl 100 Mg Tablet) 200 mg PO BEDTIME [facility] Allergies Allergies Allergy/AdvReac Type Severity Reaction Status Date / Time lisinopril Allergy Mild Unknown Verified 02/22/25 11:20 codeine Allergy Unknown Verified 02/22/25 11:20 Assessment & Plan Assessment & Plan (1) Major neurocognitive disorder due to another medical condition with behavioral disturbance: Status: Acute Code(s): F02.818 - Dementia in other diseases classified elsewhere, unspecified severity, with other behavioral disturbance Plan Mr. 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 medical work up is unremarkable. He was started on ceftin for UTI- however, UA has leukocytosis but no nitrites nor bacteria (will stop ceftin). recommend increasing trileptal to 300mg po BID, continue olanzapine 7.5mg po BID. Continue trazodone 100mg po qhs. Will restart clonazepam 0.25mg po BID. Will monitor oversedation. PLAN 02/28 increase trileptal to 300mg po BID, continue olanzapine 7.5mg po BID, start/restart clonazepam 0.25mg po BID. Monitor over sedation. Continue Sertraline 50mg po daily. 03/04 continue increased clonazepam to 0.25mg po TID, trileptal 300mg po BID, olanzapine 7.5mg po BID. trazodone 100mg po qhs and sertraline 50mg po daily. 03/05 continue tx. 03/06 family meeting, plan to continue titrating medications and assess for therapeutic effect. 03/07 continue tx. 03/10 switch clonazepam to diazepam. continue olanzapine and trileptal. 03/11 difficulty sleeping, just changed to diazepam. continue medication regimen. 03/12 continue tx. 03/13 continue tx. restart prn olanzapine. 03/14 increase diazepam 10mg po TID. 03/15: monitor on diazepam 03/16: continue to monitor 03/17 continue tx. 03/18 continue current tx. 03/19 continue tx. 03/20 continue tx. 03/21 increase trazodone to 200mg po qhs. Reason for continued inpatient stay Substantial Risk for: inability to function Time Spent With Patient Time: Total time managing care of this patient today ____ minutes.
[2025-03-21] MEDS: OLANZapine ODT 10 MG TAB.RAPDIS TRANSLINGU (16:03)
[2025-03-21] MEDS: traZODone HCL 25 MG HALFTAB PO (18:45)
[2025-03-21 20:00] VITALS: BP 118/92; PULSE 104; RESP 18; TEMP 36.8; O2SAT 96
[2025-03-22 08:00] VITALS: BP 125/60; PULSE 67; RESP 14; TEMP 36.1; O2SAT 97
[2025-03-22] MEDS: OLANZapine 7.5 MG TABLET PO ×3 (09:10→21:06)
[2025-03-22] MEDS: calcium polycarbophiL TABLET 1 TAB PO (09:10)
--- NOTE | 2025-03-22 14:46 | P.PNPSI_ITS ---
Subjective Subjective Date of Service: 03/22/25 Reason For Visit: increased paranoid Interim History: Met with patient; discussed with team; chart review calm, confused and keeps asking for his parents, over and over -taking all meds -eating all meals sleep apnea?? Mental Status Exam Mental Status Exam Narrative: Appearance:wearing hospital gown, fair hygiene, in NAD Behavior: sitting in hallway Psychomotor: slowing Speech: mostly clear, normal rate/rhythm/volume, spontaneous TP: linear but not logical TC: on his parents; otherwise paucity of spontaneous material Mood:ok Affect: congruent, non labile SI: denies HI: denies VH/AH: denies Delusions: confabulation insight/judgment: significantly impaired memory/cog: alert, oriented only to self. severely impaired. Diagnostics Vital Signs (24Hr): Vital Signs - 24 hr 03/21/25 20:00 03/22/25 08:00 Temperature 98.2 F 97 F Pulse Rate 104 H 67 Respiratory Rate 18 14 Blood Pressure 118/92 H 125/60 Pulse Oximetry 96 97 Oxygen Delivery Method Room Air Room Air BMI result Body Mass Index 21.0 Labs 03/13/25 07:30 03/13/25 07:30 Imaging Radiology Impressions: ITS Impressions Wrist X-Ray 03/05/25 10:28 IMPRESSION: Nonspecific cystic like lucency is present in the radial half of the lunate. It has nonaggressive features. Electronically signed by: Rell Fernando MD 03/05/2025 10:42 AM EDT Medications Medications Current Medications Acetaminophen (Acetaminophen 325 Mg Tablet) 650 mg PO Q6H PRN PRN Reason: Headache/Pain, Scale 1-10 Last Admin: 03/21/25 19:58 Dose: 650 mg Al Hydroxide/Mg Hydroxide (Magnesium Hydrox/Alum Hydrox 30 Ml Oral.Susp) 30 ml PO Q6H PRN PRN Reason: Heartburn/Nausea Aspirin (Aspirin 81 Mg Tab.Chew) 81 mg PO DAILY [facility] Last Admin: 03/22/25 09:10 Dose: 81 mg Atorvastatin Calcium (Atorvastatin Calcium 80 Mg Tablet) 80 mg PO BEDTIME [facility] Last Admin: 03/21/25 19:59 Dose: 80 mg Calcium Polycarbophil (Calcium Polycarbophil Tablet) 1 tab PO DAILY [facility] Last Admin: 03/22/25 09:10 Dose: 1 tab Clopidogrel Bisulfate (Clopidogrel Bisulfate 75 Mg Tablet) 75 mg PO DAILY [facility] Last Admin: 03/22/25 09:10 Dose: 75 mg Cyanocobalamin (Cyanocobalamin (Vitamin B-12) 1,000 Mcg Tablet) 1,000 mcg PO DAILY [facility] Last Admin: 03/22/25 09:10 Dose: 1,000 mcg Diazepam (Diazepam 5 Mg Tablet) 10 mg PO TID [facility] Last Admin: 03/22/25 09:10 Dose: 10 mg Finasteride (Finasteride 5 Mg Tablet) 5 mg PO DAILY [facility] Last Admin: 03/22/25 09:10 Dose: 5 mg Lamotrigine (Lamotrigine 100 Mg Tablet) 100 mg PO BID [facility] Last Admin: 03/22/25 09:10 Dose: 100 mg Lamotrigine (Lamotrigine 25 Mg Tablet) 50 mg PO BID [facility] Last Admin: 03/22/25 09:10 Dose: 50 mg Magnesium Hydroxide (Milk Of Magnesia 30 Ml Oral.Susp) 30 ml PO DAILY PRN PRN Reason: Constipation Nicotine (Nicotine 21 Mg Patch.Td24) 21 mg TRANSDERMA DAILY PRN PRN Reason: nicotine craving Nicotine Polacrilex (Nicotine Polacrilex 2 Mg Gum) 2 mg BUCCAL Q2H PRN PRN Reason: Nicotine Cravings Olanzapine (Olanzapine 7.5 Mg Tablet) 7.5 mg PO TID [facility] Last Admin: 03/22/25 09:10 Dose: 7.5 mg Olanzapine (Olanzapine Odt 10 Mg Tab.Rapdis) 10 mg TRANSLINGU Q6H PRN PRN Reason: agitation or psychosis Last Admin: 03/21/25 16:03 Dose: 10 mg Oxcarbazepine (Oxcarbazepine 300 Mg Tablet) 600 mg PO BID [facility] Last Admin: 03/22/25 09:10 Dose: 600 mg Sertraline HCl (Sertraline Hcl 50 Mg Tablet) 50 mg PO BEDTIME [facility] Last Admin: 03/21/25 19:59 Dose: 50 mg Thiamine HCl (Thiamine Hcl 100 Mg Tablet) 100 mg PO DAILY [facility] Last Admin: 03/22/25 09:10 Dose: 100 mg Trazodone HCl (Trazodone Hcl 50 Mg Tablet) 50 mg PO BEDTIME PRN PRN Reason: Insomnia Last Admin: 03/18/25 20:36 Dose: 50 mg Trazodone HCl (Trazodone Hcl 100 Mg Tablet) 200 mg PO BEDTIME [facility] Last Admin: 03/21/25 19:59 Dose: 200 mg Trazodone HCl (Trazodone Hcl 25 Mg Halftab) 25 mg PO BID PRN PRN Reason: AGITATION Last Admin: 03/21/25 18:45 Dose: 25 mg Allergies Allergies Allergy/AdvReac Type Severity Reaction Status Date / Time lisinopril Allergy Mild Unknown Verified 02/22/25 11:20 codeine Allergy Unknown Verified 02/22/25 11:20 Assessment & Plan Assessment & Plan (1) Major neurocognitive disorder due to another medical condition with behavioral disturbance: Status: Acute Code(s): F02.818 - Dementia in other diseases classified elsewhere, unspecified severity, with other behavioral disturbance Plan Mr. 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 medical work up is unremarkable. He was started on ceftin for UTI- however, UA has leukocytosis but no nitrites nor bacteria (will stop ceftin). recommend increasing trileptal to 300mg po BID, continue olanzapine 7.5mg po BID. Continue trazodone 100mg po qhs. Will restart clonazepam 0.25mg po BID. Will monitor oversedation. PLAN 02/28 increase trileptal to 300mg po BID, continue olanzapine 7.5mg po BID, start/restart clonazepam 0.25mg po BID. Monitor over sedation. Continue Sertraline 50mg po daily. 03/04 continue increased clonazepam to 0.25mg po TID, trileptal 300mg po BID, olanzapine 7.5mg po BID. trazodone 100mg po qhs and sertraline 50mg po daily. 03/05 continue tx. 03/06 family meeting, plan to continue titrating medications and assess for therapeutic effect. 03/07 continue tx. 03/10 switch clonazepam to diazepam. continue olanzapine and trileptal. 03/11 difficulty sleeping, just changed to diazepam. continue medication regimen. 03/12 continue tx. 03/13 continue tx. restart prn olanzapine. 03/14 increase diazepam 10mg po TID. 03/15: monitor on diazepam 03/16: continue to monitor 03/17 continue tx. 03/18 continue current tx. 03/19 continue tx. 03/20 continue tx. 03/21 increase trazodone to 200mg po qhs. 03/22 calm, confused and keeps asking for his parents, over and over -pt appears to have sleep apnea and witnessed stopping breathing while sleeping Informed Consent: does not understand Reason for continued inpatient stay Substantial Risk for: inability to function Time Spent With Patient Time: Total time managing care of this patient today ____ minutes.
[2025-03-22 20:00] VITALS: BP 121/58; PULSE 60; RESP 18; TEMP 36.3; O2SAT 96
[2025-03-23] MEDS: OLANZapine 7.5 MG TABLET PO ×3 (07:48→20:13)
[2025-03-23] MEDS: calcium polycarbophiL TABLET 1 TAB PO (07:55)
[2025-03-23 08:00] VITALS: BP 127/69; PULSE 64; RESP 16; TEMP 36.1; O2SAT 96
--- NOTE | 2025-03-23 16:52 | HO.PSYCHPN ---
Subjective Subjective Date of Service: 03/23/25 Reason For Visit: increased paranoid Interim History: Met with patient; discussed with team no change in prentation; pt talking to fiction writer about discharge in 15 days; then about the [facility] Mental Status Exam Mental Status Exam Narrative: Appearance:wearing hospital gown, fair hygiene, in NAD Behavior: sitting in hallway Psychomotor: slowing Speech: mostly clear, normal rate/rhythm/volume, spontaneous TP: linear but not logical TC: on his parents; otherwise paucity of spontaneous material Mood:ok Affect: congruent, non labile SI: denies HI: denies VH/AH: denies Delusions: confabulation insight/judgment: significantly impaired memory/cog: alert, oriented only to self. severely impaired. Diagnostics Vital Signs (24Hr): Vital Signs - 24 hr 03/22/25 20:00 03/23/25 08:00 Temperature 97.3 F 97 F Pulse Rate 60 64 Respiratory Rate 18 16 Blood Pressure 121/58 L 127/69 Pulse Oximetry 96 96 Oxygen Delivery Method Room Air Room Air BMI result Body Mass Index 21.0 Labs 03/13/25 07:30 03/13/25 07:30 Imaging Radiology Impressions: ITS Impressions Wrist X-Ray 03/05/25 10:28 IMPRESSION: Nonspecific cystic like lucency is present in the radial half of the lunate. It has nonaggressive features. Electronically signed by: Rell Fernando MD 03/05/2025 10:42 AM EDT Medications Medications Current Medications Acetaminophen (Acetaminophen 325 Mg Tablet) 650 mg PO Q6H PRN PRN Reason: Headache/Pain, Scale 1-10 Last Admin: 03/23/25 12:53 Dose: 650 mg Al Hydroxide/Mg Hydroxide (Magnesium Hydrox/Alum Hydrox 30 Ml Oral.Susp) 30 ml PO Q6H PRN PRN Reason: Heartburn/Nausea Aspirin (Aspirin 81 Mg Tab.Chew) 81 mg PO DAILY [facility]S [facility] Last Admin: 03/23/25 07:55 Dose: 81 mg Atorvastatin Calcium (Atorvastatin Calcium 80 Mg Tablet) 80 mg PO BEDTIME [facility] 234 BEDS AT [facility] Last Admin: 03/22/25 21:06 Dose: 80 mg Calcium Polycarbophil (Calcium Polycarbophil Tablet) 1 tab PO DAILY [facility] 234 [facility]S [facility] Last Admin: 03/23/25 07:55 Dose: 1 tab Clopidogrel Bisulfate (Clopidogrel Bisulfate 75 Mg Tablet) 75 mg PO DAILY [facility] 234 B[facility]S AT [facility] Last Admin: 03/23/25 07:48 Dose: 75 mg Cyanocobalamin (Cyanocobalamin (Vitamin B-12) 1,000 Mcg Tablet) 1,000 mcg PO DAILY [facility] 234 [facility]S AT [facility] Last Admin: 03/23/25 07:55 Dose: 1,000 mcg Diazepam (Diazepam 5 Mg Tablet) 10 mg PO TID [facility]S [facility] Last Admin: 03/23/25 15:47 Dose: 10 mg Finasteride (Finasteride 5 Mg Tablet) 5 mg PO DAILY [facility] 234 [facility]S [facility] Last Admin: 03/23/25 07:48 Dose: 5 mg Lamotrigine (Lamotrigine 100 Mg Tablet) 100 mg PO BID [facility] 234 [facility]S AT [facility] Last Admin: 03/23/25 07:50 Dose: 100 mg Lamotrigine (Lamotrigine 25 Mg Tablet) 50 mg PO BID [facility] 234 [facility]S AT [facility] Last Admin: 03/23/25 07:48 Dose: 50 mg Magnesium Hydroxide (Milk Of Magnesia 30 Ml Oral.Susp) 30 ml PO DAILY PRN PRN Reason: Constipation Nicotine (Nicotine 21 Mg Patch.Td24) 21 mg TRANSDERMA DAILY PRN PRN Reason: nicotine craving Nicotine Polacrilex (Nicotine Polacrilex 2 Mg Gum) 2 mg BUCCAL Q2H PRN PRN Reason: Nicotine Cravings Olanzapine (Olanzapine 7.5 Mg Tablet) 7.5 mg PO TID [facility]S [facility] Last Admin: 03/23/25 14:59 Dose: 7.5 mg Olanzapine (Olanzapine Odt 10 Mg Tab.Rapdis) 10 mg TRANSLINGU Q6H PRN PRN Reason: agitation or psychosis Last Admin: 03/21/25 16:03 Dose: 10 mg Oxcarbazepine (Oxcarbazepine 300 Mg Tablet) 600 mg PO BID [facility]S [facility] Last Admin: 03/23/25 07:54 Dose: 600 mg Sertraline HCl (Sertraline Hcl 50 Mg Tablet) 50 mg PO BEDTIME [facility] 234 B[facility]S AT [facility] Last Admin: 03/22/25 21:07 Dose: 50 mg Thiamine HCl (Thiamine Hcl 100 Mg Tablet) 100 mg PO DAILY [facility] 234 [facility]S AT [facility] Last Admin: 03/23/25 07:48 Dose: 100 mg Trazodone HCl (Trazodone Hcl 50 Mg Tablet) 50 mg PO BEDTIME PRN PRN Reason: Insomnia Last Admin: 03/18/25 20:36 Dose: 50 mg Trazodone HCl (Trazodone Hcl 100 Mg Tablet) 200 mg PO BEDTIME [facility] Last Admin: 03/22/25 21:08 Dose: 200 mg Trazodone HCl (Trazodone Hcl 25 Mg Halftab) 25 mg PO BID PRN PRN Reason: AGITATION Last Admin: 03/21/25 18:45 Dose: 25 mg Allergies Allergies Allergy/AdvReac Type Severity Reaction Status Date / Time lisinopril Allergy Mild Unknown Verified 02/22/25 11:20 codeine Allergy Unknown Verified 02/22/25 11:20 Assessment & Plan Assessment & Plan (1) Major neurocognitive disorder due to another medical condition with behavioral disturbance: Status: Acute Code(s): F02.818 - Dementia in other diseases classified elsewhere, unspecified severity, with other behavioral disturbance Plan Mr. 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 medical work up is unremarkable. He was started on ceftin for UTI- however, UA has leukocytosis but no nitrites nor bacteria (will stop ceftin). recommend increasing trileptal to 300mg po BID, continue olanzapine 7.5mg po BID. Continue trazodone 100mg po qhs. Will restart clonazepam 0.25mg po BID. Will monitor oversedation. PLAN 02/28 increase trileptal to 300mg po BID, continue olanzapine 7.5mg po BID, start/restart clonazepam 0.25mg po BID. Monitor over sedation. Continue Sertraline 50mg po daily. 03/04 continue increased clonazepam to 0.25mg po TID, trileptal 300mg po BID, olanzapine 7.5mg po BID. trazodone 100mg po qhs and sertraline 50mg po daily. 03/05 continue tx. 03/06 family meeting, plan to continue titrating medications and assess for therapeutic effect. 03/07 continue tx. 03/10 switch clonazepam to diazepam. continue olanzapine and trileptal. 03/11 difficulty sleeping, just changed to diazepam. continue medication regimen. 03/12 continue tx. 03/13 continue tx. restart prn olanzapine. 03/14 increase diazepam 10mg po TID. 03/15: monitor on diazepam 03/16: continue to monitor 03/17 continue tx. 03/18 continue current tx. 03/19 continue tx. 03/20 continue tx. 03/21 increase trazodone to 200mg po qhs. 03/22 calm, confused and keeps asking for his parents, over and over -pt appears to have sleep apnea and witnessed stopping breathing while sleeping 03/23 same presentation Patient educated on: diagnosis Informed Consent: does not understand Reason for continued inpatient stay Substantial Risk for: inability to function Time Spent With Patient Time: Total time managing care of this patient today ____ minutes.
[2025-03-23 20:00] VITALS: BP 131/60; PULSE 62; RESP 16; TEMP 36.6; O2SAT 96
[2025-03-24 00:32] VITALS: BP 116/65; PULSE 77; RESP 17; TEMP 36.9; O2SAT 93
[2025-03-24] MEDS: OLANZapine ODT 10 MG TAB.RAPDIS TRANSLINGU ×2 (05:26→16:17)
--- NOTE | 2025-03-24 06:44 | P.EN_ITS ---
Event Note Date of Service: 03/24/25 Event Note: nursing staff notified that pt has been choking and there is a concern that he aspirated. vital signs normal. chest xray negative. 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 Time Spent With Patient Time: Total time managing care of this patient today ____ minutes.
[2025-03-24 08:00] VITALS: BP 101/58; PULSE 67; RESP 16; TEMP 36.7; O2SAT 97
--- NOTE | 2025-03-24 08:42 | HO.PSYCHPN ---
Subjective Subjective Date of Service: 03/24/25 Reason For Visit: increased paranoid Interim History: Pt slept 6 hrs after taking medications. He was up in the AM. He was NPO due to concerns in terms of dysphagia. Seen by GENTRY pepe for lonie with thin liquids. Pt was up later in the day. He is not oriented to situation, month nor year. No episodes of aggression. She is mostly wheelchair kennedy at this point. He is taking medications. appears calmer. Diagnostics Vital Signs (24Hr): Vital Signs - 24 hr 03/23/25 20:00 03/24/25 00:32 Temperature 97.8 F 98.4 F Pulse Rate 62 77 Respiratory Rate 16 17 Blood Pressure 131/60 116/65 Pulse Oximetry 96 93 Oxygen Delivery Method Room Air Room Air BMI result Body Mass Index 21.0 Labs 03/13/25 07:30 03/13/25 07:30 Imaging Radiology Impressions: ITS Impressions Wrist X-Ray 03/05/25 10:28 IMPRESSION: Nonspecific cystic like lucency is present in the radial half of the lunate. It has nonaggressive features. Electronically signed by: Rell Fernando MD 03/05/2025 10:42 AM EDT RP Medications Medications Current Medications Acetaminophen (Acetaminophen 325 Mg Tablet) 650 mg PO Q6H PRN PRN Reason: Headache/Pain, Scale 1-10 Last Admin: 03/23/25 12:53 Dose: 650 mg Al Hydroxide/Mg Hydroxide (Magnesium Hydrox/Alum Hydrox 30 Ml Oral.Susp) 30 ml PO Q6H PRN PRN Reason: Heartburn/Nausea Aspirin (Aspirin 81 Mg Tab.Chew) 81 mg PO DAILY [facility] Last Admin: 03/23/25 07:55 Dose: 81 mg Atorvastatin Calcium (Atorvastatin Calcium 80 Mg Tablet) 80 mg PO BEDTIME [facility] Last Admin: 03/23/25 20:12 Dose: 80 mg Calcium Polycarbophil (Calcium Polycarbophil Tablet) 1 tab PO DAILY [facility] Last Admin: 03/23/25 07:55 Dose: 1 tab Clopidogrel Bisulfate (Clopidogrel Bisulfate 75 Mg Tablet) 75 mg PO DAILY [facility] Last Admin: 03/23/25 07:48 Dose: 75 mg Cyanocobalamin (Cyanocobalamin (Vitamin B-12) 1,000 Mcg Tablet) 1,000 mcg PO DAILY [facility] Last Admin: 03/23/25 07:55 Dose: 1,000 mcg Diazepam (Diazepam 5 Mg Tablet) 10 mg PO TID [facility] Last Admin: 03/23/25 20:13 Dose: 10 mg Finasteride (Finasteride 5 Mg Tablet) 5 mg PO DAILY [facility] Last Admin: 03/23/25 07:48 Dose: 5 mg Lamotrigine (Lamotrigine 100 Mg Tablet) 100 mg PO BID [facility] Last Admin: 03/23/25 20:12 Dose: 100 mg Lamotrigine (Lamotrigine 25 Mg Tablet) 50 mg PO BID [facility] Last Admin: 03/23/25 20:12 Dose: 50 mg Magnesium Hydroxide (Milk Of Magnesia 30 Ml Oral.Susp) 30 ml PO DAILY PRN PRN Reason: Constipation Nicotine (Nicotine 21 Mg Patch.Td24) 21 mg TRANSDERMA DAILY PRN PRN Reason: nicotine craving Nicotine Polacrilex (Nicotine Polacrilex 2 Mg Gum) 2 mg BUCCAL Q2H PRN PRN Reason: Nicotine Cravings Olanzapine (Olanzapine 7.5 Mg Tablet) 7.5 mg PO TID [facility] Last Admin: 03/23/25 20:13 Dose: 7.5 mg Olanzapine (Olanzapine Odt 10 Mg Tab.Rapdis) 10 mg TRANSLINGU Q6H PRN PRN Reason: agitation or psychosis Last Admin: 03/24/25 05:26 Dose: 10 mg Oxcarbazepine (Oxcarbazepine 300 Mg Tablet) 600 mg PO BID [facility] Last Admin: 03/23/25 20:14 Dose: 600 mg Sertraline HCl (Sertraline Hcl 50 Mg Tablet) 50 mg PO BEDTIME [facility] Last Admin: 03/23/25 20:12 Dose: 50 mg Thiamine HCl (Thiamine Hcl 100 Mg Tablet) 100 mg PO DAILY [facility] Last Admin: 03/23/25 07:48 Dose: 100 mg Trazodone HCl (Trazodone Hcl 50 Mg Tablet) 50 mg PO BEDTIME PRN PRN Reason: Insomnia Last Admin: 03/18/25 20:36 Dose: 50 mg Trazodone HCl (Trazodone Hcl 100 Mg Tablet) 200 mg PO BEDTIME [facility] Last Admin: 03/23/25 20:13 Dose: 200 mg Trazodone HCl (Trazodone Hcl 25 Mg Halftab) 25 mg PO BID PRN PRN Reason: AGITATION Last Admin: 03/21/25 18:45 Dose: 25 mg Allergies Allergies Allergy/AdvReac Type Severity Reaction Status Date / Time lisinopril Allergy Mild Unknown Verified 02/22/25 11:20 codeine Allergy Unknown Verified 02/22/25 11:20 Assessment & Plan Assessment & Plan (1) Major neurocognitive disorder due to another medical condition with behavioral disturbance: Status: Acute Code(s): F02.818 - Dementia in other diseases classified elsewhere, unspecified severity, with other behavioral disturbance Plan Mr. 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 medical work up is unremarkable. He was started on ceftin for UTI- however, UA has leukocytosis but no nitrites nor bacteria (will stop ceftin). recommend increasing trileptal to 300mg po BID, continue olanzapine 7.5mg po BID. Continue trazodone 100mg po qhs. Will restart clonazepam 0.25mg po BID. Will monitor oversedation. PLAN 02/28 increase trileptal to 300mg po BID, continue olanzapine 7.5mg po BID, start/restart clonazepam 0.25mg po BID. Monitor over sedation. Continue Sertraline 50mg po daily. 03/04 continue increased clonazepam to 0.25mg po TID, trileptal 300mg po BID, olanzapine 7.5mg po BID. trazodone 100mg po qhs and sertraline 50mg po daily. 03/05 continue tx. 03/06 family meeting, plan to continue titrating medications and assess for therapeutic effect. 03/07 continue tx. 03/10 switch clonazepam to diazepam. continue olanzapine and trileptal. 03/11 difficulty sleeping, just changed to diazepam. continue medication regimen. 03/12 continue tx. 03/13 continue tx. restart prn olanzapine. 03/14 increase diazepam 10mg po TID. 03/15: monitor on diazepam 03/16: continue to monitor 03/17 continue tx. 03/18 continue current tx. 03/19 continue tx. 03/20 continue tx. 03/21 increase trazodone to 200mg po qhs. 03/22 calm, confused and keeps asking for his parents, over and over -pt appears to have sleep apnea and witnessed stopping breathing while sleeping 03/23 same presentation 03/24 some difficulty sleeping, calmer, no behavioral concerns. He is taking medications as prescribed. SW discussed with d/c in a week. Reason for continued inpatient stay Substantial Risk for: inability to function Time Spent With Patient Time: Total time managing care of this patient today ____ minutes.
[2025-03-24] MEDS: OLANZapine 7.5 MG TABLET PO ×3 (08:49→20:56)
[2025-03-24] MEDS: calcium polycarbophiL TABLET 1 TAB PO (08:49)
--- NOTE | 2025-03-24 12:27 | MHC.SL.SWA ---
Speech Pathologist Impression: Mild oropharyngeal dysphagia Risk of Aspiration Due to: General weakness Intermittent dyscoordination Dysphasia Diet Status: Liquid Consistency and Strategies for Safe Swallow: Liquid Intake Recommendation: Thin Liquid Intake Strategies: Solid Food Consistency: Dietary Recommendations: Pureed (NDD1) Additional Modifications to Solid Foods: Oral Medication Intake: Crushed with Puree Please contact the pharmacy regarding appropriate crushable or liquid drug formulations that are available whenever modified delivery is recommended. Compensatory Strategies and Precautions to be Taken for Safe Swallow: Supervision While Eating and Drinking for Safe Swallow: Direct Supervision (1:1) Foods to Avoid: Swallowing Recommended Treatments: Recommendation for Speech: Inpatient Speech Therapy Comment: RN consulted, pt alert, responsive. Clinical bedside swallow evaluation conducted this morning. Pt presents with mild oropharyngeal dysphagia characterized by general oromotor and infrequent dyscoordination. Reflexive cough occurred on second sip of thin liquid and bite of jello d/t poor timing. Mild anterior loss of fluids observed with initial cup sips. As pt orientation to task improved, his coordination also improved. Pt took meds in puree, sips of juice by cup and gingerale by straw with efficient oropharyngeal coordination. Recc NDD1 with thins, straws ok, aspiration precautions, meds crushed in puree, assist and supervision with PO. MD and RN notified of recc, RENAL DIETITIAN following. Frequency/Duration: M-F Daily Date Range for Service Req: Timeline to reassess: Biology Manager Clinican/Clinical Fellow: No Supervisory Statement: I have reviewed and agree with the student/clinical fellow's documentation: N/A Speech Language Pathologist: Lucy Magallanes M.S., CCC-RENAL DIETITIAN
--- NOTE | 2025-03-24 13:48 | MHC.CLN ---
F/U SEEN BY ELEVATOR INSTALLER WITH DIET RECOMMENDATION FOR PUREE CONSISTENCY, THIN LIQUIDS.
[2025-03-24 20:00] VITALS: BP 119/66; PULSE 66; RESP 16; TEMP 36.1; O2SAT 96
[2025-03-25] MEDS: OLANZapine ODT 10 MG TAB.RAPDIS TRANSLINGU (03:37)
[2025-03-25 07:55] VITALS: BP 118/68; PULSE 70; RESP 18; TEMP 36.4; O2SAT 97
--- NOTE | 2025-03-25 08:36 | HO.PSYCHPN ---
Subjective Subjective Date of Service: 03/25/25 Reason For Visit: increased paranoid Interim History: Pt slept 6 hrs after taking medications. He was up in the AM. He was NPO due to concerns in terms of dysphagia. Seen by GENTRY pepe for puree with thin liquids. Pt was up later in the day. He is not oriented to situation, month nor year. No episodes of aggression. She is mostly wheelchair kennedy at this point. He is taking medications. appears calmer. Review of Systems Review of Systems Denies shortness of breath, dizziness, or any pain or discomfort Yes all other systems are reviewed and are negative Constitutional: Denies body ache(s), Denies chills and Denies fever(s) Eyes: Denies blurry vision Denies dizziness and Denies dry mouth Cardiovascular: Denies chest pain and Denies dyspnea on exertion Respiratory: Denies cough and Denies dyspnea on exertion Gastrointestinal: Denies abdominal pain Musculoskeletal: Denies back pain and Denies arthralgias Skin/Breast: Denies rash Denies dizziness Psychiatric: Denies anxiety, Denies depression, Denies visual hallucinations, Denies homicidal ideation and Denies suicidal ideation Mental Status Exam Mental Status Exam Narrative: Appearance:wearing hospital gown, fair hygiene, in NAD Behavior: sitting in hallway Psychomotor: slowing Speech: mostly clear, normal rate/rhythm/volume, spontaneous TP: linear but not logical TC: on his parents; otherwise paucity of spontaneous material Mood:ok Affect: congruent, non labile SI: denies HI: denies VH/AH: denies Delusions: confabulation insight/judgment: significantly impaired memory/cog: alert, oriented only to self. severely impaired. Diagnostics Vital Signs (24Hr): Vital Signs - 24 hr 03/24/25 20:00 Temperature 97 F Pulse Rate 66 Respiratory Rate 16 Blood Pressure 119/66 Pulse Oximetry 96 Oxygen Delivery Method Room Air BMI result Body Mass Index 21.0 Labs 03/13/25 07:30 03/13/25 07:30 Imaging Radiology Impressions: ITS Impressions Wrist X-Ray 03/05/25 10:28 IMPRESSION: Nonspecific cystic like lucency is present in the radial half of the lunate. It has nonaggressive features. Electronically signed by: Rell Fernando MD 03/05/2025 10:42 AM EDT Medications Medications Current Medications Acetaminophen (Acetaminophen 325 Mg Tablet) 650 mg PO Q6H PRN PRN Reason: Headache/Pain, Scale 1-10 Last Admin: 03/23/25 12:53 Dose: 650 mg Al Hydroxide/Mg Hydroxide (Magnesium Hydrox/Alum Hydrox 30 Ml Oral.Susp) 30 ml PO Q6H PRN PRN Reason: Heartburn/Nausea Aspirin (Aspirin 81 Mg Tab.Chew) 81 mg PO DAILY [facility] Last Admin: 03/24/25 08:49 Dose: 81 mg Atorvastatin Calcium (Atorvastatin Calcium 80 Mg Tablet) 80 mg PO BEDTIME [facility] Last Admin: 03/24/25 20:55 Dose: 80 mg Calcium Polycarbophil (Calcium Polycarbophil Tablet) 1 tab PO DAILY [facility] Last Admin: 03/24/25 08:49 Dose: 1 tab Clopidogrel Bisulfate (Clopidogrel Bisulfate 75 Mg Tablet) 75 mg PO DAILY [facility] Last Admin: 03/24/25 08:49 Dose: 75 mg Cyanocobalamin (Cyanocobalamin (Vitamin B-12) 1,000 Mcg Tablet) 1,000 mcg PO DAILY [facility] Last Admin: 03/24/25 08:49 Dose: 1,000 mcg Diazepam (Diazepam 5 Mg Tablet) 10 mg PO TID [facility] Last Admin: 03/24/25 20:56 Dose: 10 mg Finasteride (Finasteride 5 Mg Tablet) 5 mg PO DAILY [facility] Last Admin: 03/24/25 08:49 Dose: 5 mg Lamotrigine (Lamotrigine 100 Mg Tablet) 100 mg PO BID [facility] Last Admin: 03/24/25 20:55 Dose: 100 mg Lamotrigine (Lamotrigine 25 Mg Tablet) 50 mg PO BID [facility] Last Admin: 03/24/25 20:55 Dose: 50 mg Magnesium Hydroxide (Milk Of Magnesia 30 Ml Oral.Susp) 30 ml PO DAILY PRN PRN Reason: Constipation Nicotine (Nicotine 21 Mg Patch.Td24) 21 mg TRANSDERMA DAILY PRN PRN Reason: nicotine craving Nicotine Polacrilex (Nicotine Polacrilex 2 Mg Gum) 2 mg BUCCAL Q2H PRN PRN Reason: Nicotine Cravings Olanzapine (Olanzapine 7.5 Mg Tablet) 7.5 mg PO TID [facility] Last Admin: 03/24/25 20:56 Dose: 7.5 mg Olanzapine (Olanzapine Odt 10 Mg Tab.Rapdis) 10 mg TRANSLINGU Q6H PRN PRN Reason: agitation or psychosis Last Admin: 03/25/25 03:37 Dose: 10 mg Oxcarbazepine (Oxcarbazepine 300 Mg Tablet) 600 mg PO BID HAIM Last Admin: 03/24/25 20:55 Dose: 600 mg Sertraline HCl (Sertraline Hcl 50 Mg Tablet) 50 mg PO BEDTIME HAIM Last Admin: 03/24/25 20:55 Dose: 50 mg Thiamine HCl (Thiamine Hcl 100 Mg Tablet) 100 mg PO DAILY HAIM Last Admin: 03/24/25 08:49 Dose: 100 mg Trazodone HCl (Trazodone Hcl 50 Mg Tablet) 50 mg PO BEDTIME PRN PRN Reason: Insomnia Last Admin: 03/25/25 03:37 Dose: 50 mg Trazodone HCl (Trazodone Hcl 100 Mg Tablet) 200 mg PO BEDTIME HAIM Last Admin: 03/24/25 20:55 Dose: 200 mg Trazodone HCl (Trazodone Hcl 25 Mg Halftab) 25 mg PO BID PRN PRN Reason: AGITATION Last Admin: 03/21/25 18:45 Dose: 25 mg Allergies Allergies Allergy/AdvReac Type Severity Reaction Status Date / Time lisinopril Allergy Mild Unknown Verified 02/22/25 11:20 codeine Allergy Unknown Verified 02/22/25 11:20 Assessment & Plan Assessment & Plan (1) Major neurocognitive disorder due to another medical condition with behavioral disturbance: Status: Acute Code(s): F02.818 - Dementia in other diseases classified elsewhere, unspecified severity, with other behavioral disturbance Plan Mr. 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 medical work up is unremarkable. He was started on ceftin for UTI- however, UA has leukocytosis but no nitrites nor bacteria (will stop ceftin). recommend increasing trileptal to 300mg po BID, continue olanzapine 7.5mg po BID. Continue trazodone 100mg po qhs. Will restart clonazepam 0.25mg po BID. Will monitor oversedation. PLAN 02/28 increase trileptal to 300mg po BID, continue olanzapine 7.5mg po BID, start/restart clonazepam 0.25mg po BID. Monitor over sedation. Continue Sertraline 50mg po daily. 03/04 continue increased clonazepam to 0.25mg po TID, trileptal 300mg po BID, olanzapine 7.5mg po BID. trazodone 100mg po qhs and sertraline 50mg po daily. 03/05 continue tx. 03/06 family meeting, plan to continue titrating medications and assess for therapeutic effect. 03/07 continue tx. 03/10 switch clonazepam to diazepam. continue olanzapine and trileptal. 03/11 difficulty sleeping, just changed to diazepam. continue medication regimen. 03/12 continue tx. 03/13 continue tx. restart prn olanzapine. 03/14 increase diazepam 10mg po TID. 03/15: monitor on diazepam 03/16: continue to monitor 03/17 continue tx. 03/18 continue current tx. 03/19 continue tx. 03/20 continue tx. 03/21 increase trazodone to 200mg po qhs. 03/22 calm, confused and keeps asking for his parents, over and over -pt appears to have sleep apnea and witnessed stopping breathing while sleeping 03/23 same presentation 03/24 some difficulty sleeping, calmer, no behavioral concerns. He is taking medications as prescribed. SW discussed with d/c in a week. 03/25 continue tx. Reason for continued inpatient stay Substantial Risk for: inability to function Time Spent With Patient Time: Total time managing care of this patient today ____ minutes.
[2025-03-25] MEDS: OLANZapine 7.5 MG TABLET PO ×3 (09:13→20:18)
[2025-03-25] MEDS: calcium polycarbophiL TABLET 1 TAB PO (09:14)
--- NOTE | 2025-03-25 17:18 | MHC.SL.SWA ---
Speech Pathologist Impression: Risk of Aspiration Due to: Dysphasia Diet Status: Recommend continue on PUree (NDD1) with THIN liquids, pills crushed in puree 1-1 assistance at all meals. Liquid Consistency and Strategies for Safe Swallow: Liquid Intake Recommendation: Thin Liquid Intake Strategies: Solid Food Consistency: Dietary Recommendations: Pureed (NDD1) Additional Modifications to Solid Foods: Oral Medication Intake: Crushed with Puree Please contact the pharmacy regarding appropriate crushable or liquid drug formulations that are available whenever modified delivery is recommended. Compensatory Strategies and Precautions to be Taken for Safe Swallow: Sitting Upright (90 deg) Liquids from Cup Liquids from Straw Small Bites and Sips Alternate Liquids/Solids Supervision While Eating and Drinking for Safe Swallow: Total Assistance (1:1) Foods to Avoid: Swallowing Recommended Treatments: Recommendation for Speech: Inpatient Speech Therapy Comment: Patient observed at lunch today for toleration of recommended diet of Puree with thin liquids. Patient was in group dining area with assitance being given by HAND THERMAL CUTTER. At start, patient was holding cup of chocolate pudding in lap and attempting to feed self, which was difficult and hit or miss for him, with HAND THERMAL CUTTER retrieving cup and assisting him one to one. FINANCIAL MANAGEMENT then also assisted patient with main meal, with patient accepting assistance and expressing enjoyment of the pureed mac and cheese on tray, but also accepting bites of all items. FINANCIAL MANAGEMENT also assisted patient with taking sip by straw of lilli joey which patient managed well. HAND THERMAL CUTTER was then encouraged to continue meal with direct assistance, as FINANCIAL MANAGEMENT departed. Recommend continue on PUree (NDD1) with THIN liquids, pills crushed in puree 1-1 assistance at all meals. Frequency/Duration: M-F Daily Date Range for Service Req: Timeline to reassess: Resource Manager Forester Clinican/Clinical Fellow: No Supervisory Statement: I have reviewed and agree with the student/clinical fellow's documentation: N/A Speech Language Pathologist: Jaclyn Sandhu M.A., [facility]
[2025-03-25 20:00] VITALS: BP 123/72; PULSE 60; RESP 18; TEMP 36.5; O2SAT 94
[2025-03-26] MEDS: OLANZapine ODT 10 MG TAB.RAPDIS TRANSLINGU (04:21)
[2025-03-26] MEDS: traZODone HCL 25 MG HALFTAB PO (04:21)
[2025-03-26 08:00] VITALS: BP 110/64; PULSE 68; RESP 18; TEMP 36.6; O2SAT 95
--- NOTE | 2025-03-26 09:32 | MHC.CLN ---
F/U DIET=REGULAR, PUREE CONSISTENCY. VARIABLE PO INTAKE. SHOWS MODERATE, FAVORABLE WEIGHT GAIN WITH BMI NOW 21.0. NO NUTRITIONAL SUPPLEMENT AT THIS TIME. RD TO MONITOR WEEKLY.
[2025-03-26] MEDS: OLANZapine 7.5 MG TABLET PO ×3 (09:53→21:04)
[2025-03-26] MEDS: calcium polycarbophiL TABLET 1 TAB PO (09:53)
--- NOTE | 2025-03-26 15:30 | MHC.SLORD ---
Speech Language Pathology Order Status: BRAIDER SETTER did not see pt today.
--- NOTE | 2025-03-26 17:20 | HO.PSYCHPN ---
Subjective Subjective Date of Service: 03/26/25 Reason For Visit: increased paranoid Subjective Notes: Conditional Voluntary Healthcare Proxy: Yes Interim History: Pt had difficulty sleeping last night. Pt was more agitated in the evening. He was calm during the day and slept most of the day. VS stable, taking medications. Medication Compliance: Yes Review of Systems Review of Systems Denies shortness of breath, dizziness, or any pain or discomfort Yes all other systems are reviewed and are negative Constitutional: Denies body ache(s), Denies chills and Denies fever(s) Eyes: Denies blurry vision Denies dizziness and Denies dry mouth Cardiovascular: Denies chest pain and Denies dyspnea on exertion Respiratory: Denies cough and Denies dyspnea on exertion Gastrointestinal: Denies abdominal pain Musculoskeletal: Denies back pain and Denies arthralgias Skin/Breast: Denies rash Denies dizziness Psychiatric: Denies anxiety, Denies depression, Denies visual hallucinations, Denies homicidal ideation and Denies suicidal ideation Mental Status Exam Mental Status Exam Narrative: Appearance:wearing hospital gown, fair hygiene, in NAD Behavior: sitting in hallway Psychomotor: slowing Speech: mostly clear, normal rate/rhythm/volume, spontaneous TP: linear but not logical TC: on his parents; otherwise paucity of spontaneous material Mood:ok Affect: congruent, non labile SI: denies HI: denies VH/AH: denies Delusions: confabulation insight/judgment: significantly impaired memory/cog: alert, oriented only to self. severely impaired. Diagnostics Vital Signs (24Hr): Vital Signs - 24 hr 03/25/25 20:00 03/26/25 08:00 Temperature 97.7 F 97.9 F Pulse Rate 60 68 Respiratory Rate 18 18 Blood Pressure 123/72 110/64 Pulse Oximetry 94 95 Oxygen Delivery Method Room Air Room Air BMI result Body Mass Index 21.0 Labs 03/13/25 07:30 03/13/25 07:30 Imaging Radiology Impressions: ITS Impressions Wrist X-Ray 03/05/25 10:28 IMPRESSION: Nonspecific cystic like lucency is present in the radial half of the lunate. It has nonaggressive features. Electronically signed by: Rell eFrnando MD 03/05/2025 10:42 AM EDT Medications Medications Current Medications Acetaminophen (Acetaminophen 325 Mg Tablet) 650 mg PO Q6H PRN PRN Reason: Headache/Pain, Scale 1-10 Last Admin: 03/23/25 12:53 Dose: 650 mg Al Hydroxide/Mg Hydroxide (Magnesium Hydrox/Alum Hydrox 30 Ml Oral.Susp) 30 ml PO Q6H PRN PRN Reason: Heartburn/Nausea Aspirin (Aspirin 81 Mg Tab.Chew) 81 mg PO DAILY [facility] Last Admin: 03/26/25 09:53 Dose: 81 mg Atorvastatin Calcium (Atorvastatin Calcium 80 Mg Tablet) 80 mg PO BEDTIME [facility] Last Admin: 03/25/25 20:19 Dose: 80 mg Calcium Polycarbophil (Calcium Polycarbophil Tablet) 1 tab PO DAILY [facility] Last Admin: 03/26/25 09:53 Dose: 1 tab Clopidogrel Bisulfate (Clopidogrel Bisulfate 75 Mg Tablet) 75 mg PO DAILY [facility] Last Admin: 03/26/25 09:52 Dose: 75 mg Cyanocobalamin (Cyanocobalamin (Vitamin B-12) 1,000 Mcg Tablet) 1,000 mcg PO DAILY [facility] Last Admin: 03/26/25 09:53 Dose: 1,000 mcg Diazepam (Diazepam 5 Mg Tablet) 10 mg PO TID [facility] Last Admin: 03/26/25 14:16 Dose: 10 mg Finasteride (Finasteride 5 Mg Tablet) 5 mg PO DAILY [facility] Last Admin: 03/26/25 09:54 Dose: 5 mg Lamotrigine (Lamotrigine 100 Mg Tablet) 100 mg PO BID [facility] Last Admin: 03/26/25 09:52 Dose: 100 mg Lamotrigine (Lamotrigine 25 Mg Tablet) 50 mg PO BID [facility] Last Admin: 03/26/25 09:53 Dose: 50 mg Magnesium Hydroxide (Milk Of Magnesia 30 Ml Oral.Susp) 30 ml PO DAILY PRN PRN Reason: Constipation Nicotine (Nicotine 21 Mg Patch.Td24) 21 mg TRANSDERMA DAILY PRN PRN Reason: nicotine craving Nicotine Polacrilex (Nicotine Polacrilex 2 Mg Gum) 2 mg BUCCAL Q2H PRN PRN Reason: Nicotine Cravings Olanzapine (Olanzapine 7.5 Mg Tablet) 7.5 mg PO TID [facility] Last Admin: 03/26/25 14:16 Dose: 7.5 mg Olanzapine (Olanzapine Odt 10 Mg Tab.Rapdis) 10 mg TRANSLINGU Q6H PRN PRN Reason: agitation or psychosis Last Admin: 03/26/25 04:21 Dose: 10 mg Oxcarbazepine (Oxcarbazepine 300 Mg Tablet) 600 mg PO BID HAIM Last Admin: 03/26/25 09:53 Dose: 600 mg Sertraline HCl (Sertraline Hcl 50 Mg Tablet) 50 mg PO BEDTIME HAIM Last Admin: 03/25/25 20:20 Dose: 50 mg Thiamine HCl (Thiamine Hcl 100 Mg Tablet) 100 mg PO DAILY [facility]IM Last Admin: 03/26/25 09:53 Dose: 100 mg Trazodone HCl (Trazodone Hcl 50 Mg Tablet) 50 mg PO BEDTIME PRN PRN Reason: Insomnia Last Admin: 03/25/25 03:37 Dose: 50 mg Trazodone HCl (Trazodone Hcl 100 Mg Tablet) 200 mg PO BEDTIME HAIM Last Admin: 03/25/25 20:20 Dose: 200 mg Trazodone HCl (Trazodone Hcl 25 Mg Halftab) 25 mg PO BID PRN PRN Reason: AGITATION Last Admin: 03/26/25 04:21 Dose: 25 mg Allergies Allergies Allergy/AdvReac Type Severity Reaction Status Date / Time lisinopril Allergy Mild Unknown Verified 02/22/25 11:20 codeine Allergy Unknown Verified 02/22/25 11:20 Assessment & Plan Assessment & Plan (1) Major neurocognitive disorder due to another medical condition with behavioral disturbance: Status: Acute Code(s): F02.818 - Dementia in other diseases classified elsewhere, unspecified severity, with other behavioral disturbance Plan Mr. 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 medical work up is unremarkable. He was started on ceftin for UTI- however, UA has leukocytosis but no nitrites nor bacteria (will stop ceftin). recommend increasing trileptal to 300mg po BID, continue olanzapine 7.5mg po BID. Continue trazodone 100mg po qhs. Will restart clonazepam 0.25mg po BID. Will monitor oversedation. PLAN 02/28 increase trileptal to 300mg po BID, continue olanzapine 7.5mg po BID, start/restart clonazepam 0.25mg po BID. Monitor over sedation. Continue Sertraline 50mg po daily. 03/04 continue increased clonazepam to 0.25mg po TID, trileptal 300mg po BID, olanzapine 7.5mg po BID. trazodone 100mg po qhs and sertraline 50mg po daily. 03/05 continue tx. 03/06 family meeting, plan to continue titrating medications and assess for therapeutic effect. 03/07 continue tx. 03/10 switch clonazepam to diazepam. continue olanzapine and trileptal. 03/11 difficulty sleeping, just changed to diazepam. continue medication regimen. 03/12 continue tx. 03/13 continue tx. restart prn olanzapine. 03/14 increase diazepam 10mg po TID. 03/15: monitor on diazepam 03/16: continue to monitor 03/17 continue tx. 03/18 continue current tx. 03/19 continue tx. 03/20 continue tx. 03/21 increase trazodone to 200mg po qhs. 03/22 calm, confused and keeps asking for his parents, over and over -pt appears to have sleep apnea and witnessed stopping breathing while sleeping 03/23 same presentation 03/24 some difficulty sleeping, calmer, no behavioral concerns. He is taking medications as prescribed. SW discussed with d/c in a week. 03/25 continue tx. 03/26 continue tx. Reason for continued inpatient stay Substantial Risk for: inability to function Time Spent With Patient Time: Total time managing care of this patient today ____ minutes.
[2025-03-26 20:00] VITALS: BP 121/76; PULSE 63; RESP 18; TEMP 36.5; O2SAT 99
[2025-03-27 08:00] VITALS: BP 111/74; PULSE 72; RESP 18; TEMP 36.3; O2SAT 99
[2025-03-27] MEDS: OLANZapine 7.5 MG TABLET PO ×3 (08:46→20:49)
[2025-03-27] MEDS: calcium polycarbophiL TABLET 1 TAB PO (08:46)
--- NOTE | 2025-03-27 09:44 | HO.PSYCHPN ---
Subjective Subjective Date of Service: 03/27/25 Reason For Visit: increased paranoid Subjective Notes: Conditional Voluntary Interim History: Pt slept through the night. He was sexually inappropriate with female staff asking them to take their clothes off and sleep with him. redirectable. taking medications. no aggression. Review of Systems Review of Systems Denies shortness of breath, dizziness, or any pain or discomfort Yes all other systems are reviewed and are negative Constitutional: Denies body ache(s), Denies chills and Denies fever(s) Eyes: Denies blurry vision Denies dizziness and Denies dry mouth Cardiovascular: Denies chest pain and Denies dyspnea on exertion Respiratory: Denies cough and Denies dyspnea on exertion Gastrointestinal: Denies abdominal pain Musculoskeletal: Denies back pain and Denies arthralgias Skin/Breast: Denies rash Denies dizziness Psychiatric: Denies anxiety, Denies depression, Denies visual hallucinations, Denies homicidal ideation and Denies suicidal ideation Mental Status Exam Mental Status Exam Narrative: Appearance:wearing hospital gown, fair hygiene, in NAD Behavior: sitting in hallway Psychomotor: slowing Speech: mostly clear, normal rate/rhythm/volume, spontaneous TP: linear but not logical TC: on his parents; otherwise paucity of spontaneous material Mood:ok Affect: congruent, non labile SI: denies HI: denies VH/AH: denies Delusions: confabulation insight/judgment: significantly impaired memory/cog: alert, oriented only to self. severely impaired. Diagnostics Vital Signs (24Hr): Vital Signs - 24 hr 03/26/25 20:00 Temperature 97.7 F Pulse Rate 63 Respiratory Rate 18 Blood Pressure 121/76 Pulse Oximetry 99 Oxygen Delivery Method Room Air BMI result Body Mass Index 21.0 Labs 03/13/25 07:30 03/13/25 07:30 Imaging Radiology Impressions: ITS Impressions Wrist X-Ray 03/05/25 10:28 IMPRESSION: Nonspecific cystic like lucency is present in the radial half of the lunate. It has nonaggressive features. Electronically signed by: Rell Fernando MD 03/05/2025 10:42 AM EDT Medications Medications Current Medications Acetaminophen (Acetaminophen 325 Mg Tablet) 650 mg PO Q6H PRN PRN Reason: Headache/Pain, Scale 1-10 Last Admin: 03/26/25 21:04 Dose: 650 mg Al Hydroxide/Mg Hydroxide (Magnesium Hydrox/Alum Hydrox 30 Ml Oral.Susp) 30 ml PO Q6H PRN PRN Reason: Heartburn/Nausea Aspirin (Aspirin 81 Mg Tab.Chew) 81 mg PO DAILY [facility] Last Admin: 03/27/25 08:45 Dose: 81 mg Atorvastatin Calcium (Atorvastatin Calcium 80 Mg Tablet) 80 mg PO BEDTIME [facility] Last Admin: 03/26/25 21:04 Dose: 80 mg Calcium Polycarbophil (Calcium Polycarbophil Tablet) 1 tab PO DAILY [facility] Last Admin: 03/27/25 08:46 Dose: 1 tab Clopidogrel Bisulfate (Clopidogrel Bisulfate 75 Mg Tablet) 75 mg PO DAILY [facility] Last Admin: 03/27/25 08:46 Dose: 75 mg Cyanocobalamin (Cyanocobalamin (Vitamin B-12) 1,000 Mcg Tablet) 1,000 mcg PO DAILY [facility] Last Admin: 03/27/25 08:45 Dose: 1,000 mcg Diazepam (Diazepam 5 Mg Tablet) 10 mg PO TID [facility] Last Admin: 03/27/25 08:45 Dose: 10 mg Finasteride (Finasteride 5 Mg Tablet) 5 mg PO DAILY [facility] Last Admin: 03/27/25 08:51 Dose: 5 mg Lamotrigine (Lamotrigine 100 Mg Tablet) 100 mg PO BID [facility] Last Admin: 03/27/25 08:46 Dose: 100 mg Lamotrigine (Lamotrigine 25 Mg Tablet) 50 mg PO BID [facility] Last Admin: 03/27/25 08:45 Dose: 50 mg Magnesium Hydroxide (Milk Of Magnesia 30 Ml Oral.Susp) 30 ml PO DAILY PRN PRN Reason: Constipation Nicotine (Nicotine 21 Mg Patch.Td24) 21 mg TRANSDERMA DAILY PRN PRN Reason: nicotine craving Nicotine Polacrilex (Nicotine Polacrilex 2 Mg Gum) 2 mg BUCCAL Q2H PRN PRN Reason: Nicotine Cravings Olanzapine (Olanzapine 7.5 Mg Tablet) 7.5 mg PO TID [facility] Last Admin: 03/27/25 08:46 Dose: 7.5 mg Olanzapine (Olanzapine Odt 10 Mg Tab.Rapdis) 10 mg TRANSLINGU Q6H PRN PRN Reason: agitation or psychosis Last Admin: 03/26/25 04:21 Dose: 10 mg Oxcarbazepine (Oxcarbazepine 300 Mg Tablet) 600 mg PO BID [facility] Last Admin: 03/27/25 08:46 Dose: 600 mg Sertraline HCl (Sertraline Hcl 50 Mg Tablet) 50 mg PO BEDTIME [facility] Last Admin: 03/26/25 21:04 Dose: 50 mg Thiamine HCl (Thiamine Hcl 100 Mg Tablet) 100 mg PO DAILY [facility] Last Admin: 03/27/25 08:45 Dose: 100 mg Trazodone HCl (Trazodone Hcl 50 Mg Tablet) 50 mg PO BEDTIME PRN PRN Reason: Insomnia Last Admin: 03/25/25 03:37 Dose: 50 mg Trazodone HCl (Trazodone Hcl 100 Mg Tablet) 200 mg PO BEDTIME [facility] Last Admin: 03/26/25 21:04 Dose: 200 mg Trazodone HCl (Trazodone Hcl 25 Mg Halftab) 25 mg PO BID PRN PRN Reason: AGITATION Last Admin: 03/26/25 04:21 Dose: 25 mg Allergies Allergies Allergy/AdvReac Type Severity Reaction Status Date / Time lisinopril Allergy Mild Unknown Verified 02/22/25 11:20 codeine Allergy Unknown Verified 02/22/25 11:20 Assessment & Plan Assessment & Plan (1) Major neurocognitive disorder due to another medical condition with behavioral disturbance: Status: Acute Code(s): F02.818 - Dementia in other diseases classified elsewhere, unspecified severity, with other behavioral disturbance Plan Mr. 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 medical work up is unremarkable. He was started on ceftin for UTI- however, UA has leukocytosis but no nitrites nor bacteria (will stop ceftin). recommend increasing trileptal to 300mg po BID, continue olanzapine 7.5mg po BID. Continue trazodone 100mg po qhs. Will restart clonazepam 0.25mg po BID. Will monitor oversedation. PLAN 02/28 increase trileptal to 300mg po BID, continue olanzapine 7.5mg po BID, start/restart clonazepam 0.25mg po BID. Monitor over sedation. Continue Sertraline 50mg po daily. 03/04 continue increased clonazepam to 0.25mg po TID, trileptal 300mg po BID, olanzapine 7.5mg po BID. trazodone 100mg po qhs and sertraline 50mg po daily. 03/05 continue tx. 03/06 family meeting, plan to continue titrating medications and assess for therapeutic effect. 03/07 continue tx. 03/10 switch clonazepam to diazepam. continue olanzapine and trileptal. 03/11 difficulty sleeping, just changed to diazepam. continue medication regimen. 03/12 continue tx. 03/13 continue tx. restart prn olanzapine. 03/14 increase diazepam 10mg po TID. 03/15: monitor on diazepam 03/16: continue to monitor 03/17 continue tx. 03/18 continue current tx. 03/19 continue tx. 03/20 continue tx. 03/21 increase trazodone to 200mg po qhs. 03/22 calm, confused and keeps asking for his parents, over and over -pt appears to have sleep apnea and witnessed stopping breathing while sleeping 03/23 same presentation 03/24 some difficulty sleeping, calmer, no behavioral concerns. He is taking medications as prescribed. SW discussed with d/c in a week. 03/25 continue tx. 03/26 continue tx. 03/27 continue tx. Reason for continued inpatient stay Substantial Risk for: inability to function Time Spent With Patient Time: Total time managing care of this patient today ____ minutes.
[2025-03-27 10:24] VITALS: BMI 20.7
[2025-03-27] MEDS: traZODone HCL 25 MG HALFTAB PO (10:53)
[2025-03-27] MEDS: OLANZapine ODT 10 MG TAB.RAPDIS TRANSLINGU (10:54)
--- NOTE | 2025-03-27 15:41 | MHC.SLORD ---
Speech Language Pathology Order Status: Patient not directly seen for TX today, however [employer] present at lunch, indirectly observed patient. Per RN patient is increasing with independence at meals and tolerating well.
[2025-03-27 20:00] VITALS: BP 116/63; PULSE 62; RESP 16; TEMP 36.2; O2SAT 97
[2025-03-28 08:00] VITALS: BP 127/71; PULSE 70; RESP 16; TEMP 35.9; O2SAT 96
[2025-03-28] MEDS: calcium polycarbophiL TABLET 1 TAB PO (08:25)
[2025-03-28] MEDS: OLANZapine 7.5 MG TABLET PO ×3 (08:25→20:37)
[2025-03-28] MEDS: traZODone HCL 25 MG HALFTAB PO (14:31)
--- NOTE | 2025-03-28 16:32 | HO.PSYCHPN ---
Subjective Subjective Date of Service: 03/28/25 Reason For Visit: increased paranoid Subjective Notes: Conditional Voluntary Healthcare Proxy: Yes Interim History: Pt slept through the night. Not sexually inappropriate today. He was up in the morning, ambulating with with assistance as he is very unsteady on his own. He has been taking medications. No combative behaviors. Medication Compliance: Yes Review of Systems Review of Systems Denies shortness of breath, dizziness, or any pain or discomfort Yes all other systems are reviewed and are negative Constitutional: Denies body ache(s), Denies chills and Denies fever(s) Eyes: Denies blurry vision Denies dizziness and Denies dry mouth Cardiovascular: Denies chest pain and Denies dyspnea on exertion Respiratory: Denies cough and Denies dyspnea on exertion Gastrointestinal: Denies abdominal pain Musculoskeletal: Denies back pain and Denies arthralgias Skin/Breast: Denies rash Denies dizziness Psychiatric: Denies anxiety, Denies depression, Denies visual hallucinations, Denies homicidal ideation and Denies suicidal ideation Mental Status Exam Mental Status Exam Narrative: Appearance:wearing hospital gown, fair hygiene, in NAD Behavior: sitting in hallway Psychomotor: slowing Speech: mostly clear, normal rate/rhythm/volume, spontaneous TP: linear but not logical TC: on his parents; otherwise paucity of spontaneous material Mood:ok Affect: congruent, non labile SI: denies HI: denies VH/AH: denies Delusions: confabulation insight/judgment: significantly impaired memory/cog: alert, oriented only to self. severely impaired. Diagnostics Vital Signs (24Hr): Vital Signs - 24 hr 03/27/25 20:00 03/28/25 08:00 Temperature 97.1 F 96.7 F L Pulse Rate 62 70 Respiratory Rate 16 16 Blood Pressure 116/63 127/71 Pulse Oximetry 97 96 Oxygen Delivery Method Room Air Room Air BMI result Body Mass Index 20.7 Labs 03/13/25 07:30 03/13/25 07:30 Imaging Radiology Impressions: ITS Impressions Wrist X-Ray 03/05/25 10:28 IMPRESSION: Nonspecific cystic like lucency is present in the radial half of the lunate. It has nonaggressive features. Electronically signed by: Rell Fernando MD 03/05/2025 10:42 AM EDT Medications Medications Current Medications Acetaminophen (Acetaminophen 325 Mg Tablet) 650 mg PO Q6H PRN PRN Reason: Headache/Pain, Scale 1-10 Last Admin: 03/26/25 21:04 Dose: 650 mg Al Hydroxide/Mg Hydroxide (Magnesium Hydrox/Alum Hydrox 30 Ml Oral.Susp) 30 ml PO Q6H PRN PRN Reason: Heartburn/Nausea Aspirin (Aspirin 81 Mg Tab.Chew) 81 mg PO DAILY [facility] Last Admin: 03/28/25 08:26 Dose: 81 mg Atorvastatin Calcium (Atorvastatin Calcium 80 Mg Tablet) 80 mg PO BEDTIME [facility] Last Admin: 03/27/25 20:50 Dose: 80 mg Calcium Polycarbophil (Calcium Polycarbophil Tablet) 1 tab PO DAILY [facility] Last Admin: 03/28/25 08:25 Dose: 1 tab Clopidogrel Bisulfate (Clopidogrel Bisulfate 75 Mg Tablet) 75 mg PO DAILY [facility] Last Admin: 03/28/25 08:25 Dose: 75 mg Cyanocobalamin (Cyanocobalamin (Vitamin B-12) 1,000 Mcg Tablet) 1,000 mcg PO DAILY [facility] Last Admin: 03/28/25 08:25 Dose: 1,000 mcg Diazepam (Diazepam 5 Mg Tablet) 10 mg PO TID [facility] Last Admin: 03/28/25 14:31 Dose: 10 mg Finasteride (Finasteride 5 Mg Tablet) 5 mg PO DAILY [facility] Last Admin: 03/28/25 08:27 Dose: 5 mg Lamotrigine (Lamotrigine 100 Mg Tablet) 100 mg PO BID [facility] Last Admin: 03/28/25 08:26 Dose: 100 mg Lamotrigine (Lamotrigine 25 Mg Tablet) 50 mg PO BID [facility] Last Admin: 03/28/25 08:24 Dose: 50 mg Magnesium Hydroxide (Milk Of Magnesia 30 Ml Oral.Susp) 30 ml PO DAILY PRN PRN Reason: Constipation Nicotine (Nicotine 21 Mg Patch.Td24) 21 mg TRANSDERMA DAILY PRN PRN Reason: nicotine craving Nicotine Polacrilex (Nicotine Polacrilex 2 Mg Gum) 2 mg BUCCAL Q2H PRN PRN Reason: Nicotine Cravings Olanzapine (Olanzapine 7.5 Mg Tablet) 7.5 mg PO TID [facility] Last Admin: 03/28/25 14:31 Dose: 7.5 mg Olanzapine (Olanzapine Odt 10 Mg Tab.Rapdis) 10 mg TRANSLINGU Q6H PRN PRN Reason: agitation or psychosis Last Admin: 03/27/25 10:54 Dose: 10 mg Oxcarbazepine (Oxcarbazepine 300 Mg Tablet) 600 mg PO BID [facility] Last Admin: 03/28/25 08:25 Dose: 600 mg Sertraline HCl (Sertraline Hcl 50 Mg Tablet) 50 mg PO BEDTIME [facility] Last Admin: 03/27/25 20:49 Dose: 50 mg Thiamine HCl (Thiamine Hcl 100 Mg Tablet) 100 mg PO DAILY [facility] Last Admin: 03/28/25 08:25 Dose: 100 mg Trazodone HCl (Trazodone Hcl 50 Mg Tablet) 50 mg PO BEDTIME PRN PRN Reason: Insomnia Last Admin: 03/25/25 03:37 Dose: 50 mg Trazodone HCl (Trazodone Hcl 100 Mg Tablet) 200 mg PO BEDTIME [facility] Last Admin: 03/27/25 20:49 Dose: 200 mg Trazodone HCl (Trazodone Hcl 25 Mg Halftab) 25 mg PO BID PRN PRN Reason: AGITATION Last Admin: 03/28/25 14:31 Dose: 25 mg Allergies Allergies Allergy/AdvReac Type Severity Reaction Status Date / Time lisinopril Allergy Mild Unknown Verified 02/22/25 11:20 codeine Allergy Unknown Verified 02/22/25 11:20 Assessment & Plan Assessment & Plan (1) Major neurocognitive disorder due to another medical condition with behavioral disturbance: Status: Acute Code(s): F02.818 - Dementia in other diseases classified elsewhere, unspecified severity, with other behavioral disturbance Plan Mr. 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 medical work up is unremarkable. He was started on ceftin for UTI- however, UA has leukocytosis but no nitrites nor bacteria (will stop ceftin). recommend increasing trileptal to 300mg po BID, continue olanzapine 7.5mg po BID. Continue trazodone 100mg po qhs. Will restart clonazepam 0.25mg po BID. Will monitor oversedation. PLAN 02/28 increase trileptal to 300mg po BID, continue olanzapine 7.5mg po BID, start/restart clonazepam 0.25mg po BID. Monitor over sedation. Continue Sertraline 50mg po daily. 03/04 continue increased clonazepam to 0.25mg po TID, trileptal 300mg po BID, olanzapine 7.5mg po BID. trazodone 100mg po qhs and sertraline 50mg po daily. 03/05 continue tx. 03/06 family meeting, plan to continue titrating medications and assess for therapeutic effect. 03/07 continue tx. 03/10 switch clonazepam to diazepam. continue olanzapine and trileptal. 03/11 difficulty sleeping, just changed to diazepam. continue medication regimen. 03/12 continue tx. 03/13 continue tx. restart prn olanzapine. 03/14 increase diazepam 10mg po TID. 03/15: monitor on diazepam 03/16: continue to monitor 03/17 continue tx. 03/18 continue current tx. 03/19 continue tx. 03/20 continue tx. 03/21 increase trazodone to 200mg po qhs. 03/22 calm, confused and keeps asking for his parents, over and over -pt appears to have sleep apnea and witnessed stopping breathing while sleeping 03/23 same presentation 03/24 some difficulty sleeping, calmer, no behavioral concerns. He is taking medications as prescribed. SW discussed with d/c in a week. 03/25 continue tx. 03/26 continue tx. 03/27 continue tx. 03/28 will increase sertraline 100mg po daily decrease some sexualized behaviors. continue other meds. Reason for continued inpatient stay Substantial Risk for: inability to function Time Spent With Patient Time: Total time managing care of this patient today ____ minutes.
[2025-03-28 20:00] VITALS: BP 133/78; PULSE 64; RESP 18; TEMP 36.5; O2SAT 97
[2025-03-29 08:00] VITALS: BP 127/68; PULSE 70; RESP 16; TEMP 36.8; O2SAT 93
[2025-03-29] MEDS: calcium polycarbophiL TABLET 1 TAB PO (09:27)
[2025-03-29] MEDS: OLANZapine 7.5 MG TABLET PO ×3 (09:27→20:46)
--- NOTE | 2025-03-29 14:07 | HO.PSYCHPN ---
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 to make a donation to hospital - he can do that- Profoundly confused at time - Medication Compliance: Yes Review of Systems Acute medical concerns: No Medical Review of Systems: unchanged Mental Status Exam Mental Status Exam Narrative: dressed in simón, looks more aged and less present than last this provider saw him earlier in year Patient Orientation: Person Level of Consciousness: Awake Patient Behavior: Dependent, Talkative and Good Eye Contact Mood Description: Apprehensive Affect Description: Blunted Patient Cognition Impaired: Yes Ability to Follow Directions: Poor Speech Pattern: Rambling Thought Content: positive for Disorganized Judgement: Poor Diagnostics Vital Signs (24Hr): Vital Signs - 24 hr 03/28/25 20:00 03/29/25 08:00 Temperature 97.7 F 98.3 F Pulse Rate 64 70 Respiratory Rate 18 16 Blood Pressure 133/78 127/68 Pulse Oximetry 97 93 Oxygen Delivery Method Room Air Room Air BMI result Body Mass Index 20.7 Labs 03/13/25 07:30 03/13/25 07:30 Imaging Radiology Impressions: ITS Impressions Wrist X-Ray 03/05/25 10:28 IMPRESSION: Nonspecific cystic like lucency is present in the radial half of the lunate. It has nonaggressive features. Electronically signed by: Rell Fernando MD 03/05/2025 10:42 AM EDT Medications Medications Current Medications Acetaminophen (Acetaminophen 325 Mg Tablet) 650 mg PO Q6H PRN PRN Reason: Headache/Pain, Scale 1-10 Last Admin: 03/26/25 21:04 Dose: 650 mg Al Hydroxide/Mg Hydroxide (Magnesium Hydrox/Alum Hydrox 30 Ml Oral.Susp) 30 ml PO Q6H PRN PRN Reason: Heartburn/Nausea Aspirin (Aspirin 81 Mg Tab.Chew) 81 mg PO DAILY [facility] Last Admin: 03/29/25 09:26 Dose: 81 mg Atorvastatin Calcium (Atorvastatin Calcium 80 Mg Tablet) 80 mg PO BEDTIME [facility] Last Admin: 03/28/25 20:36 Dose: 80 mg Calcium Polycarbophil (Calcium Polycarbophil Tablet) 1 tab PO DAILY [facility] Last Admin: 03/29/25 09:27 Dose: 1 tab Clopidogrel Bisulfate (Clopidogrel Bisulfate 75 Mg Tablet) 75 mg PO DAILY [facility] Last Admin: 03/29/25 09:27 Dose: 75 mg Cyanocobalamin (Cyanocobalamin (Vitamin B-12) 1,000 Mcg Tablet) 1,000 mcg PO DAILY [facility] Last Admin: 03/29/25 09:27 Dose: 1,000 mcg Diazepam (Diazepam 5 Mg Tablet) 10 mg PO TID [facility] Last Admin: 03/29/25 09: Dose: 10 mg Finasteride (Finasteride 5 Mg Tablet) 5 mg PO DAILY [facility] Last Admin: 03/29/25 10:52 Dose: 5 mg Lamotrigine (Lamotrigine 100 Mg Tablet) 100 mg PO BID [facility] Last Admin: 03/29/25 09:27 Dose: 100 mg Lamotrigine (Lamotrigine 25 Mg Tablet) 50 mg PO BID [facility] Last Admin: 03/29/25 09:27 Dose: 50 mg Magnesium Hydroxide (Milk Of Magnesia 30 Ml Oral.Susp) 30 ml PO DAILY PRN PRN Reason: Constipation Nicotine (Nicotine 21 Mg Patch.Td24) 21 mg TRANSDERMA DAILY PRN PRN Reason: nicotine craving Nicotine Polacrilex (Nicotine Polacrilex 2 Mg Gum) 2 mg BUCCAL Q2H PRN PRN Reason: Nicotine Cravings Olanzapine (Olanzapine 7.5 Mg Tablet) 7.5 mg PO TID [facility] Last Admin: 03/29/25 09:27 Dose: 7.5 mg Olanzapine (Olanzapine Odt 10 Mg Tab.Rapdis) 10 mg TRANSLINGU Q6H PRN PRN Reason: agitation or psychosis Last Admin: 03/27/25 10:54 Dose: 10 mg Oxcarbazepine (Oxcarbazepine 300 Mg Tablet) 600 mg PO BID [facility] Last Admin: 03/29/25 09:26 Dose: 600 mg Sertraline HCl (Sertraline Hcl 100 Mg Tablet) 100 mg PO BEDTIME [facility] Last Admin: 03/28/25 20:36 Dose: 100 mg Thiamine HCl (Thiamine Hcl 100 Mg Tablet) 100 mg PO DAILY [facility] Last Admin: 03/29/25 09:27 Dose: 100 mg Trazodone HCl (Trazodone Hcl 50 Mg Tablet) 50 mg PO BEDTIME PRN PRN Reason: Insomnia Last Admin: 03/25/25 03:37 Dose: 50 mg Trazodone HCl (Trazodone Hcl 100 Mg Tablet) 200 mg PO BEDTIME [facility] Last Admin: 03/28/25 20:37 Dose: 200 mg Trazodone HCl (Trazodone Hcl 25 Mg Halftab) 25 mg PO BID PRN PRN Reason: AGITATION Last Admin: 03/28/25 14:31 Dose: 25 mg Allergies Allergies Allergy/AdvReac Type Severity Reaction Status Date / Time lisinopril Allergy Mild Unknown Verified 02/22/25 11:20 codeine Allergy Unknown Verified 02/22/25 11:20 Assessment & Plan Assessment & Plan (1) Major neurocognitive disorder due to another medical condition with behavioral disturbance: Status: Acute Code(s): F02.818 - Dementia in other diseases classified elsewhere, unspecified severity, with other behavioral disturbance Plan Mr. 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 medical work up is unremarkable. He was started on ceftin for UTI- however, UA has leukocytosis but no nitrites nor bacteria (will stop ceftin). recommend increasing trileptal to 300mg po BID, continue olanzapine 7.5mg po BID. Continue trazodone 100mg po qhs. Will restart clonazepam 0.25mg po BID. Will monitor oversedation. PLAN 02/28 increase trileptal to 300mg po BID, continue olanzapine 7.5mg po BID, start/restart clonazepam 0.25mg po BID. Monitor over sedation. Continue Sertraline 50mg po daily. 03/04 continue increased clonazepam to 0.25mg po TID, trileptal 300mg po BID, olanzapine 7.5mg po BID. trazodone 100mg po qhs and sertraline 50mg po daily. 03/05 continue tx. 03/06 family meeting, plan to continue titrating medications and assess for therapeutic effect. 03/07 continue tx. 03/10 switch clonazepam to diazepam. continue olanzapine and trileptal. 03/11 difficulty sleeping, just changed to diazepam. continue medication regimen. 03/12 continue tx. 03/13 continue tx. restart prn olanzapine. 03/14 increase diazepam 10mg po TID. 03/15: monitor on diazepam 03/16: continue to monitor 03/17 continue tx. 03/18 continue current tx. 03/19 continue tx. 03/20 continue tx. 03/21 increase trazodone to 200mg po qhs. 03/22 calm, confused and keeps asking for his parents, over and over -pt appears to have sleep apnea and witnessed stopping breathing while sleeping 03/23 same presentation 03/24 some difficulty sleeping, calmer, no behavioral concerns. He is taking medications as prescribed. SW discussed with d/c in a week. 03/25 continue tx. 03/26 continue tx. 03/27 continue tx. 03/28 will increase sertraline 100mg po daily decrease some sexualized behaviors. continue other meds. 03/29 behaviors ok today so far- profound confusion- CTP Reason for continued inpatient stay Substantial Risk for: inability to function and med/psych decompensation Time Spent With Patient Time: Total time managing care of this patient today ____ minutes.
[2025-03-29 20:00] VITALS: BP 100/65; PULSE 60; RESP 16; TEMP 36.8; O2SAT 94
--- NOTE | 2025-03-30 07:22 | P.PNPSI_ITS ---
Subjective Subjective Date of Service: 03/30/25 Reason For Visit: increased paranoid Subjective Notes: Conditional Voluntary (by hcp) Healthcare Proxy: Yes Medical Problems Affecting Mental Status: Yes (anoxic brain injury) Interim History: 69 yo MWM dressed today and walking some without wheelchair but with 1:1- asks me to write my name down on paper for him= nursing reports continued profound confusion- , wandering - but redirectable with 1:1 He says he is eating and sleeping- when asked. Medication Compliance: Yes Side effects from medications: No Review of Systems Medical Review of Systems: unchanged Mental Status Exam Mental Status Exam Narrative: unshaven but dressed, better eye contact today- Patient Orientation: Person and Place Level of Consciousness: Awake Patient Behavior: Dependent and Passive Mood Description: Anxious Affect Description: Blunted Patient Cognition Impaired: Yes Ability to Follow Directions: Poor Speech Pattern: Clear Thought Process: Distracted Thought Content: positive for Poverty of Content Judgement: Poor Diagnostics Vital Signs (24Hr): Vital Signs - 24 hr 03/29/25 08:00 03/29/25 20:00 Temperature 98.3 F 98.3 F Pulse Rate 70 60 Respiratory Rate 16 16 Blood Pressure 127/68 100/65 Pulse Oximetry 93 94 Oxygen Delivery Method Room Air Room Air BMI result Body Mass Index 20.7 Labs 03/13/25 07:30 03/13/25 07:30 Imaging Radiology Impressions: ITS Impressions Wrist X-Ray 03/05/25 10:28 IMPRESSION: Nonspecific cystic like lucency is present in the radial half of the lunate. It has nonaggressive features. Electronically signed by: Rell Fernando MD 03/05/2025 10:42 AM EDT Medications Medications Current Medications Acetaminophen (Acetaminophen 325 Mg Tablet) 650 mg PO Q6H PRN PRN Reason: Headache/Pain, Scale 1-10 Last Admin: 03/26/25 21:04 Dose: 650 mg Al Hydroxide/Mg Hydroxide (Magnesium Hydrox/Alum Hydrox 30 Ml Oral.Susp) 30 ml PO Q6H PRN PRN Reason: Heartburn/Nausea Aspirin (Aspirin 81 Mg Tab.Chew) 81 mg PO DAILY [facility] Last Admin: 03/29/25 09:26 Dose: 81 mg Atorvastatin Calcium (Atorvastatin Calcium 80 Mg Tablet) 80 mg PO BEDTIME [facility] Last Admin: 03/29/25 20:46 Dose: 80 mg Calcium Polycarbophil (Calcium Polycarbophil Tablet) 1 tab PO DAILY [facility] Last Admin: 03/29/25 09:27 Dose: 1 tab Clopidogrel Bisulfate (Clopidogrel Bisulfate 75 Mg Tablet) 75 mg PO DAILY [facility] Last Admin: 03/29/25 09:27 Dose: 75 mg Cyanocobalamin (Cyanocobalamin (Vitamin B-12) 1,000 Mcg Tablet) 1,000 mcg PO DAILY [facility] Last Admin: 03/29/25 09:27 Dose: 1,000 mcg Diazepam (Diazepam 5 Mg Tablet) 10 mg PO TID [facility] Last Admin: 03/29/25 20:46 Dose: 10 mg Finasteride (Finasteride 5 Mg Tablet) 5 mg PO DAILY [facility] Last Admin: 03/29/25 10:52 Dose: 5 mg Lamotrigine (Lamotrigine 100 Mg Tablet) 100 mg PO BID [facility] Last Admin: 03/29/25 20:46 Dose: 100 mg Lamotrigine (Lamotrigine 25 Mg Tablet) 50 mg PO BID [facility] Last Admin: 03/29/25 20:47 Dose: 50 mg Magnesium Hydroxide (Milk Of Magnesia 30 Ml Oral.Susp) 30 ml PO DAILY PRN PRN Reason: Constipation Nicotine (Nicotine 21 Mg Patch.Td24) 21 mg TRANSDERMA DAILY PRN PRN Reason: nicotine craving Nicotine Polacrilex (Nicotine Polacrilex 2 Mg Gum) 2 mg BUCCAL Q2H PRN PRN Reason: Nicotine Cravings Olanzapine (Olanzapine 7.5 Mg Tablet) 7.5 mg PO TID [facility] Last Admin: 03/29/25 20:46 Dose: 7.5 mg Olanzapine (Olanzapine Odt 10 Mg Tab.Rapdis) 10 mg TRANSLINGU Q6H PRN PRN Reason: agitation or psychosis Last Admin: 03/27/25 10:54 Dose: 10 mg Oxcarbazepine (Oxcarbazepine 300 Mg Tablet) 600 mg PO BID [facility] Last Admin: 03/29/25 20:47 Dose: 600 mg Sertraline HCl (Sertraline Hcl 100 Mg Tablet) 100 mg PO BEDTIME [facility] Last Admin: 03/29/25 20:46 Dose: 100 mg Thiamine HCl (Thiamine Hcl 100 Mg Tablet) 100 mg PO DAILY [facility] Last Admin: 03/29/25 09:27 Dose: 100 mg Trazodone HCl (Trazodone Hcl 50 Mg Tablet) 50 mg PO BEDTIME PRN PRN Reason: Insomnia Last Admin: 03/25/25 03:37 Dose: 50 mg Trazodone HCl (Trazodone Hcl 100 Mg Tablet) 200 mg PO BEDTIME [facility] Last Admin: 03/29/25 20:46 Dose: 200 mg Trazodone HCl (Trazodone Hcl 25 Mg Halftab) 25 mg PO BID PRN PRN Reason: AGITATION Last Admin: 03/28/25 14:31 Dose: 25 mg Allergies Allergies Allergy/AdvReac Type Severity Reaction Status Date / Time lisinopril Allergy Mild Unknown Verified 02/22/25 11:20 codeine Allergy Unknown Verified 02/22/25 11:20 Assessment & Plan Assessment & Plan (1) Major neurocognitive disorder due to another medical condition with behavioral disturbance: Status: Acute Code(s): F02.818 - Dementia in other diseases classified elsewhere, unspecified severity, with other behavioral disturbance Plan Mr. 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 medical work up is unremarkable. He was started on ceftin for UTI- however, UA has leukocytosis but no nitrites nor bacteria (will stop ceftin). recommend increasing trileptal to 300mg po BID, continue olanzapine 7.5mg po BID. Continue trazodone 100mg po qhs. Will restart clonazepam 0.25mg po BID. Will monitor oversedation. PLAN 02/28 increase trileptal to 300mg po BID, continue olanzapine 7.5mg po BID, start/restart clonazepam 0.25mg po BID. Monitor over sedation. Continue Sertraline 50mg po daily. 03/04 continue increased clonazepam to 0.25mg po TID, trileptal 300mg po BID, olanzapine 7.5mg po BID. trazodone 100mg po qhs and sertraline 50mg po daily. 03/05 continue tx. 03/06 family meeting, plan to continue titrating medications and assess for therapeutic effect. 03/07 continue tx. 03/10 switch clonazepam to diazepam. continue olanzapine and trileptal. 03/11 difficulty sleeping, just changed to diazepam. continue medication regimen. 03/12 continue tx. 03/13 continue tx. restart prn olanzapine. 03/14 increase diazepam 10mg po TID. 03/15: monitor on diazepam 03/16: continue to monitor 03/17 continue tx. 03/18 continue current tx. 03/19 continue tx. 03/20 continue tx. 03/21 increase trazodone to 200mg po qhs. 03/22 calm, confused and keeps asking for his parents, over and over -pt appears to have sleep apnea and witnessed stopping breathing while sleeping 03/23 same presentation 03/24 some difficulty sleeping, calmer, no behavioral concerns. He is taking medications as prescribed. SW discussed with d/c in a week. 03/25 continue tx. 03/26 continue tx. 03/27 continue tx. 03/28 will increase sertraline 100mg po daily decrease some sexualized behaviors. continue other meds. 03/29 behaviors ok today so far- profound confusion- CTP 03/30 = CTP Reason for continued inpatient stay Substantial Risk for: inability to function, rapid decompensation and med/psych decompensation Time Spent With Patient Time: Total time managing care of this patient today ____ minutes.
[2025-03-30 07:49] VITALS: BP 118/68; PULSE 89; RESP 16; TEMP 36.3; O2SAT 97
[2025-03-30] MEDS: calcium polycarbophiL TABLET 1 TAB PO (08:22)
[2025-03-30] MEDS: OLANZapine 7.5 MG TABLET PO ×3 (08:23→20:13)
[2025-03-30 20:00] VITALS: BP 155/84; PULSE 74; RESP 18; TEMP 36.8; O2SAT 97
[2025-03-31 08:30] VITALS: BP 107/64; PULSE 62; RESP 16; TEMP 36.8; O2SAT 98
[2025-03-31] MEDS: calcium polycarbophiL TABLET 1 TAB PO (08:56)
[2025-03-31] MEDS: OLANZapine 7.5 MG TABLET PO ×2 (08:56→16:31)
--- NOTE | 2025-03-31 11:16 | PM.PSYDC ---
DS: Providers Provider Date of Service: 03/31/25 Date of admission: 02/26/25 18:10 Date of discharge: 03/31/25 Primary care physician: [facility] DS: Diagnosis Discharge Diagnosis (1) Major neurocognitive disorder due to another medical condition with behavioral disturbance: Status: Acute DS: Medications Discharge Medications Home Medications: Home Medications ?Medication ?Instructions ?Recorded ?Confirmed calcium polycarbophil 625 mg 625 mg PO DAILY 01/16/25 02/23/25 tablet (Fiber (calcium polycarbophil)) Previous Rx's ?Medication ?Instructions ?Recorded rollator walker with seat and #1 ea 07/08/24 brakes transport wheelchair with footrests #1 ea 07/08/24 finasteride 5 mg tablet (Proscar) 5 mg PO DAILY #30 tabs 12/09/24 cyanocobalamin (vitamin B-12) 1,000 mcg PO DAILY #90 tabs 02/19/25 1,000 mcg tablet thiamine HCl (vitamin B1) 100 mg 100 mg PO DAILY #90 tabs 02/19/25 tablet aspirin 81 mg chewable tablet 81 mg PO DAILY #30 tabs 03/31/25 atorvastatin 80 mg tablet 80 mg PO BEDTIME #30 tabs 03/31/25 clopidogrel 75 mg tablet 75 mg PO DAILY #30 tabs 03/31/25 diazepam 10 mg tablet (Valium) 10 mg PO TID 24 hours #90 tabs 03/31/25 lamotrigine 150 mg tablet 150 mg PO BID #60 tabs 03/31/25 olanzapine 10 mg tablet 10 mg PO TID #90 tabs 03/31/25 oxcarbazepine 600 mg tablet 600 mg PO BID #60 tabs 03/31/25 sertraline 100 mg tablet 100 mg PO BEDTIME #30 tabs 03/31/25 trazodone 100 mg tablet 200 mg (2 x 100 mg) PO BEDTIME #60 03/31/25 tabs Mental Status Exam Mental Status Exam Narrative: Appearance:wearing hospital gown, fair hygiene, in NAD Behavior: sitting in hallway Psychomotor: slowing Speech: mostly clear, normal rate/rhythm/volume, spontaneous TP: linear but not logical TC: on his parents; otherwise paucity of spontaneous material Mood:ok Affect: congruent, non labile SI: denies HI: denies VH/AH: denies Delusions: confabulation insight/judgment: significantly impaired memory/cog: alert, oriented only to self. severely impaired. Data Imaging Diagnostic Imaging Impressions Wrist X-Ray 03/05/25 10:28 IMPRESSION: Nonspecific cystic like lucency is present in the radial half of the lunate. It has nonaggressive features. Electronically signed by: Rell Fernando MD 03/05/2025 10:42 AM EDT RP DS: Summary Hospital Course Hospital Course: is a 69 year-old male with hx of Major Neurocognitive disorder as result of combination of anoxic brain injury along with vascular changes. He was recently discharged from on 02/08/25 after treatment of intermittent combative behaviors as result of progression of dementia causing paranoid delusion, impulsive behaviors. He was brought via EMS on 02/23/25 due to increase combative behaviors, holding a knife, presenting as paranoid and suspicious. Pt does not have any recollection of events leading to this admission and does not know where he is or how long he has been here. He asks about his and whether this health science writer knows where his son is. Pertinent labs completed in the ED include: CBC with normocytic anemia (note he is on aspirin); CMP without electrolyte abnormalities, BUN 10, Cr 1.13, creatinine clearance 97.8. UA showed leukocytosis but no nitrites no bacteria, no culture completed however, pt was started on ceftin 500mg po BID (at this point will d/c). On the unit, pt presents as calm and cooperative. He does not know where he is nor why. He does not remember events leading to this admission. He is taking medications as prescribed. Last admission it was noted that his agitation can drastically change depending on where he thinks he is or not and there are times when he can become very suspicious and paranoid. Pt was seen by OP psych provider Aram Tolbert. He was started on trileptal and olazapine was increased to 7.5mg po BID. Past Psychiatric History: Inpt: Discharge from [facility] 02/08/2025 with severe cognitive impairment, intermittent agitation, discharge medications included olanzapine 5 mg twice daily and 2.5 mg as needed, Klonopin 0.5 mg twice daily, trazodone 100 mg and lamotrigine for seizure disorder HOSPITAL COURSE On the unit, pt presented with episodes of combative behaviors. He was continued on olanzapine which was increased to 10mg po TID. He was also continued on diazepam which was increased to 10mg po TID. Trileptal which had been recently started OP was increased to 600mg po BID. He was continued on sertraline 100mg po daily. He was also continued on trazodone 150mg po qhs for sleep. He tolerated the medications without significant side effects. He gradually presented as calmer. He did not have severe episodes of aggression or combative behaviors several days prior to discharge. He was taking medications as prescribed. We had family meeting to discuss progression of cognitive and memory impairments along with less impulse control and disinhibition His gait is very unsteady and needs a 2 assist when ambulating. He used wheelchair most of the time. Family would like to bring him back home. Status at Discharge Cognitive/behavioral status at discharge: Pt with brighter affect. oriented only to self. language grossly intact in terms of fluency without aphasia (receptive and expressive). significant confabulation. Inability to retain any information from hour to hour or day to day. Functional status at discharge: wheelchair bound Overall status at discharge: patient is back to baseline Time Spent with Patient Time attestation: Total time managing care of this patient today __45__ minutes. Time spent: Greater than 30 minutes Discharge Plan Discharge Anticipated Discharge Date/Time: 03/31/25 10:59 Patient Disposition: Home, Self-Care Discharge Diagnosis: Major Neurocognitive Disorder- multifactorial Referrals: Atul Restrepo [Outside] - 1 Day Referral Note: Your [facility] services will restart on 04/01/25 after discharge. If they do not please call the number listed. Avery Price APRN [Registered Nurse, Psychology] - 04/16/25 1:15 pm Referral Note: Your appointment with Avery Price will be in person on at 1:15pm. You have been put on a cancelation list if something comes up earlier. Leon Godinez, ANTONINA- [Primary Care Provider, Internal Medicine] - 3-5 Days Referral Note: office will reach out to you after discharge to confirm a date and time for an appointment. If you do not hear back from them with in 3-5 days after discharge please call the number listed. Discharge Medications: New atorvastatin 80 mg Tablet 80 mg PO BEDTIME Qty: 30 0RF clopidogrel 75 mg Tablet 75 mg PO DAILY Qty: 30 0RF aspirin 81 mg Tablet,Chewable 81 mg PO DAILY Qty: 30 0RF diazepam [Valium] 10 mg tablet 10 mg PO TID 1 Days Qty: 90 0RF olanzapine 10 mg tablet 10 mg PO TID Qty: 90 0RF sertraline 100 mg Tablet 100 mg PO BEDTIME Qty: 30 0RF trazodone 100 mg Tablet 200 mg PO BEDTIME Qty: 60 0RF oxcarbazepine 600 mg tablet 600 mg PO BID Qty: 60 0RF diazepam [Valium] 10 mg tablet 10 mg PO TID 1 Days Qty: 90 0RF diazepam [Valium] 10 mg tablet 10 mg PO TID 30 Days Qty: 90 0RF Continued (DME) rollator walker with seat and brakes See Rx Instructions .Route .MEDSUPPLY Qty: 1 0RF Rx Instructions: As directed (DME) transport wheelchair with footrests See Rx Instructions .Route .MEDSUPPLY Qty: 1 0RF Rx Instructions: As directed cyanocobalamin (vitamin B-12) 1,000 mcg tablet 1,000 mcg PO DAILY Qty: 90 1RF thiamine HCl (vitamin B1) 100 mg tablet 100 mg PO DAILY Qty: 90 1RF calcium polycarbophil [Fiber (calcium polycarbophil)] 625 mg Tablet 625 mg PO DAILY lamotrigine 150 mg tablet 150 mg PO BID Qty: 60 0RF finasteride [Proscar] 5 mg tablet 5 mg PO DAILY Qty: 30 5RF Discontinued aspirin 81 mg tablet,chewable 1 tab PO DAILY Qty: 90 3RF atorvastatin 80 mg tablet 80 mg PO BEDTIME olanzapine 2.5 mg Tablet 2.5 mg PO BID PRN (Reason: agitation) Qty: 60 0RF trazodone 100 mg Tablet 100 mg PO BEDTIME Qty: 30 0RF oxcarbazepine 150 mg tablet 150 mg PO BID olanzapine 15 mg tablet 7.5 mg PO BID clonazepam [Klonopin] 0.5 mg tablet 0.5 mg PO TID olanzapine 5 mg tablet,disintegrating 5 mg PO DAILY PRN (Reason: psychosis) sertraline 50 mg tablet 50 mg PO BEDTIME clopidogrel 75 mg tablet 75 mg PO DAILY Qty: 90 3RF Discharge Orders: Discharge Order (Routine); Ordered 03/31/25 Ordered By: Aidee Lucio Diet: Regular diet Activity on Discharge: wheelchair Stand Alone Forms: Patient Portal Discharge page, Community Support Print Language: Russian Care Plan Goals: maintain mood no aggression towards self or others Health Concerns: Follow up with PCP for routine care Plan of Treatment: 1. Medications have to be given and managed by caregiver. Pt not able to manage own medications due to severe cognitive/memory impairments. 2. Go to nearest ED or call 911 in event of emergency Assessment: Pt with brighter, non labile affect. Alert, oriented only to self. Sleeping and eating well. Wheelchair bound. No aggression towards self or others. Discharge Date/Time: 03/31/25 16:55
--- NOTE | 2025-03-31 15:30 | MHC.SLORD ---
Speech Language Pathology Order Status: No dysphagia treatment today. MAILING CLERK reported pt d/c planned for this afternoon and he did not eat lunch. Pt need for ASSISTANT ART DIRECTOR intervention TBD at next setting.
== END 2025-03-31 16:55 | disposition home or self-care (01) | DRG 884 ==
LOC: HO.ED 02-24 10:31 → HO.PGERI 02-26 18:33
PROVIDERS: Nurse Practitioner Family; Physician Assistant; Social Worker; Admitting Provider Nurse Practitioner Psychiatric/Mental Health; Emergency Provider Emergency Medicine; PCP Nurse Practitioner Family; Visit Provider Nurse Practitioner Psychiatric/Mental Health
DX: F01.518 Vascular dementia, unspecified severity, with other behavioral disturbance (principal); G93.1 Anoxic brain damage, not elsewhere classified; N39.0 Urinary tract infection, site not specified; N40.0 Benign prostatic hyperplasia without lower urinary tract symptoms; I25.10 Atherosclerotic heart disease of native coronary artery without angina pectoris; G40.909 Epilepsy, unspecified, not intractable, without status epilepticus; Z78.1 Physical restraint status; Z79.02 Long term (current) use of antithrombotics/antiplatelets; Z79.899 Other long term (current) drug therapy
CPT/HCPCS: 36415; 71045; 73110; 80048; 80053; 80061; 80307; 81001; 83036; 84439; 84443; 85025; 92526; 92610; 93005; 99285; J1630; J2250; J3360; S9485

== ENCOUNTER → 2025-02-22 12:16 | Outpatient (BNV) | payer MEDICARE, SELFPAY | PROVIDERS: Emergency Provider Emergency Medicine; Visit Provider Internal Medicine | DX: I45.2 Bifascicular block (principal); R00.1 Bradycardia, unspecified | CPT/HCPCS: 93010 ==

== ENCOUNTER → 2025-02-22 12:33 | Outpatient (BNV) | payer MEDICARE, SELFPAY | PROVIDERS: Emergency Provider Emergency Medicine; Visit Provider Psychiatry & Neurology Psychiatry | DX: F03.918 Unspecified dementia, unspecified severity, with other behavioral disturbance (principal) | CPT/HCPCS: 99499 ==

== ENCOUNTER → 2025-02-25 23:59 | Outpatient (BNV) | payer MEDICARE, SELFPAY | PROVIDERS: PCP Nurse Practitioner Family; Visit Provider Nurse Practitioner Family | DX: F03.90 Unspecified dementia, unspecified severity, without behavioral disturbance, psychotic disturbance, mood disturbance, and anxiety (principal); G93.1 Anoxic brain damage, not elsewhere classified | CPT/HCPCS: G0180 ==

== ENCOUNTER 2025-02-26 18:10 | Outpatient (BNV) | payer MEDICARE, SELFPAY | END 2025-03-24 00:27 | PROVIDERS: Admitting Provider Nurse Practitioner Psychiatric/Mental Health; Emergency Provider Emergency Medicine; PCP Nurse Practitioner Family; Visit Provider Radiology Diagnostic Radiology | DX: I10 Essential (primary) hypertension (principal) | CPT/HCPCS: 71045 ==

== ENCOUNTER 2025-02-26 18:10 | Outpatient (BNV) | payer MEDICARE, SELFPAY | END 2025-03-05 10:28 | PROVIDERS: Admitting Provider Nurse Practitioner Psychiatric/Mental Health; Emergency Provider Emergency Medicine; PCP Nurse Practitioner Family; Visit Provider Radiology Diagnostic Radiology | DX: M25.532 Pain in left wrist (principal) | CPT/HCPCS: 73110 ==

== ENCOUNTER → 2025-02-26 18:10 | Outpatient (BNV) | payer MEDICARE, SELFPAY | PROVIDERS: Admitting Provider Nurse Practitioner Psychiatric/Mental Health; Emergency Provider Emergency Medicine; PCP Nurse Practitioner Family; Visit Provider Nurse Practitioner Family | DX: I10 Essential (primary) hypertension (principal) | CPT/HCPCS: 99221 ==

== ENCOUNTER 2025-04-02 15:12 | Outpatient (AMB) | payer MEDICARE, SELFPAY ==
--- NOTE | 2025-04-02 15:18 | MHC.PC.OV ---
Vital Signs 04/02/25 15:19 Height 5 ft 10 in Weight 147 lb BMI 21.1 BP 112/78 Blood Pressure Location Lt brachial Position Sitting Respiration 16 Pulse 59 Pulse Source Pulse Oximeter Temp 98.2 F Temp Source Oral Pulse Oximetry (%) 97 Oxygen Delivery Method Room Air Intake Visit Reasons: follow up Cake Winder Required: No Accompanied by: Self / Same As Patient Allergies lisinopril Allergy (Mild, Verified 04/02/25 15:47) Unknown codeine Allergy (Verified 04/02/25 15:47) Unknown Medication List - Last Reconciled 04/02/25 by Leon Godinez FOUNDRY SUPERVISOR- aspirin 81 mg PO DAILY atorvastatin 80 mg PO BEDTIME calcium polycarbophil (Fiber (calcium polycarbophil)) 625 mg PO DAILY clopidogrel 75 mg PO DAILY cyanocobalamin (vitamin B-12) 1,000 mcg PO DAILY diazepam (Valium) 10 mg PO TID 24 hours finasteride (Proscar) 5 mg PO DAILY lamotrigine 150 mg PO BID olanzapine 10 mg PO TID oxcarbazepine 600 mg PO BID [rollator walker with seat and brakes As directed] sertraline 100 mg PO BEDTIME thiamine HCl (vitamin B1) 100 mg PO DAILY [transport wheelchair with footrests As directed] trazodone 200 mg (2 x 100 mg) PO BEDTIME Tobacco use date assessed: 04/02/25 Fall risk assessment: 1 Fall in past year Last assessed Fall Risk: 04/02/25 Dental Screening Dental Screen Date: 04/02/25 Did you have a dental visit in the last 12 months?: No Did you have a dental problem in the last 6 months where you did not have access to dental care?: No Was dental information given to patient?: Patient declined HPI follow up HPI Details Chief Complaint The patient presents for a follow-up after hospital discharge. History of Present Illness The patient is a 69-year-old male presenting with a hospital discharge follow-up. He was admitted to [facility] on 02/26/2025 and discharged on 03/31/2025. The patient has a significant history of a major neurocognitive disorder resulting from a combination of anoxic brain injury and vascular changes ( 24-7 caregiver) He was recently discharged from the psychiatric floor due to combative behavior and progression of dementia causing paranoid delusions and impulsive behaviors. During his hospital stay, he was found to have a possible urinary tract infection and was started on Ceftin twice a day (initial hospital visit). His olanzapine was increased to 10 mg three times a day, and he was started on diazepam 10 mg orally three times a day. The patient's , who is his primary caregiver, reports that he was very active yesterday but is subdued today, possibly due to the effects of diazepam and other psychiatric medications. He has a psychiatric appointment scheduled for the of this month. The patient is currently wearing a diaper due to periodic urinary incontinence, and his buttocks are red but blanchable. The patient has an unsteady gait, which has been his baseline since the anoxic brain injury. He is in a wheelchair but can get up with some difficulty (baseline). NOTE: please see full discharge report Social History - Primary caregiver: , providing 23/01 care - Functional status: Unsteady gait, uses a wheelchair but can get up with difficulty - Previous lifestyle: Antisocial, preferred staying at home Health Maintenance - Discussed use of barrier cream to prevent pressure ulcers - Recommended exploring Medicaid program for home-based nursing care Review of Systems - Neurological: Reports being subdued today, was very active yesterday; denies knowing current location - Genitourinary: Reports periodic urinary incontinence - No reported fevers, chills, n/v, actual combative behavior Physical Exam General: Cooperative, sleepy, somewhat obtunded Orientation: Patient disoriented, does not know where he is right now Limitations: Unsteady gait, uses a wheelchair Head: Normal to inspection Ears: Hearing grossly normal bilaterally Nose: Normal external nose present Face and sinus: Normal facial exam Eyes: Appearance normal, both eyes and all related structures Neck: Normal visual inspection and Yes full ROM Respiratory: Normal respiratory effort and able to speak in complete sentences (garbled in the beginning of the visit). Clear to auscultation bilaterally Cardiovascular: Regular rate and rhythm. Normal S1 and S2 GI: Normal to inspection. Soft to palpation and nontender Skin: Red but blanchable (upper buttocks), wearing a diaper due to periodic urinary incontinence Neuro: Patient disoriented, does not know where he is right now Extremities: Normal to inspection Results - Labs: Possible urinary tract infection identified during hospital stay Plan 1. Major Neurocognitive Disorder The patient has a major neurocognitive disorder resulting from anoxic brain injury and vascular changes. He was recently discharged from the psychiatric floor due to combative behavior and progression of dementia causing paranoid delusions and impulsive behaviors (people in his house, pt jumped out a first floor window, and also was thinking he was protecting his ). His olanzapine was increased to 10 mg three times a day, and he was started on diazepam 10 mg orally three times a day to manage these symptoms, rather than prn diazepam (as was prior to admission) 2. Urinary Tract Infection (initial hospital stay) During the hospital stay, the patient was found to have a possible urinary tract infection and was started on Ceftin twice a day. The infection was managed with antibiotics, and the patient is currently wearing a diaper due to periodic urinary incontinence. 3. Unsteady Gait The patient has an unsteady gait, which has been his baseline since the anoxic brain injury. He is in a wheelchair but can get up with some difficulty, indicating a need for continued support and monitoring. Discussion Notes I discussed with the patient's the importance of monitoring for pressure ulcers and recommended the use of barrier cream. We also talked about exploring a Medicaid program for home-based nursing care, which could be beneficial for the patient. The patient has a psychiatric appointment scheduled for the of this month, which will help in further managing his neurocognitive disorder. Patient Instructions - Monitor for signs of pressure ulcers and use barrier cream as needed. - Attend the psychiatric appointment on the of this month. - Explore Medicaid program options for home-based nursing care. [facility] Medical History (Updated 04/02/25 @ 16:22 by LUIZ Coley) Primary degenerative dementia Dementia Complex partial seizures Anxiety Seizure disorder Hypertension CAD (coronary artery disease) BPH loc w urin obs/LUTS Contusion of left chest wall Emphysema of lung Neurogenic bladder Prostate nodule Ataxia Anoxic brain injury Epilepsy Cardiac arrest Surgical History No pertinent past surgical history Social History Household Members: Spouse and Children Housing: House Do you presently have visiting nurse or other home services: No Alcohol intake: never Comment: 1:1 Patient Tobacco Use Status: Former Tobacco user e-Cigarette/Vaping Use: Never Used Substance Use Type: Marijuana Advance Directives Date on File: 07/04/24 service: No Current occupational status: retired Sexual orientation: Straight/Heterosexual Cognitive needs: No Hearing needs: No Vision needs: No Questionnaire Thrive Questionnaire Date Thrive assessed: 08/19/24 I am a: Patient What is your living situation today?: I have a steady place to live Within the past 12 months, did the food you bought not last and you didn't have the money to get more?: I choose not to answer this question Within the past 12 months, did you worry whether your food would run out before you got money to buy more?: I choose not to answer this question Do you have trouble paying for medicines?: No Do you have trouble getting transportation to medical appointments?: No Do you have trouble paying your heating and electricity bill?: No Do you have trouble taking care of your child, family member or friend?: I choose not to answer this question Do you have trouble with day-to-day activities such as bathing, preparing meals, shopping, managing finances, etc.?: No Are you currently unemployed and looking for a job?: No Are you interested in more education?: No Please select the resources that you would like help with: None Currently or been in a relationship where the following occur: I choose not to answer THRIVE Score: 0 CRISTIAN-7 AMB Questionnaire CRISTIAN-7 Date CRISTIAN - 7 assessed: 02/13/25 Source: Developed by Drs. Musa Corado, Brandi Vo, Vinod Leblanc and colleagues, with an educational fani from [employer]. Physical exam (Primary Care) Vital Signs: Last Vital Signs Temp 98.2 F 04/02/25 15:19 Pulse 59 04/02/25 15:19 Resp 16 04/02/25 15:19 BP 112/78 04/02/25 15:19 Pulse Ox 97 04/02/25 15:19 Oxygen Delivery Method Room Air 04/02/25 15:19 BMI result Body Mass Index 21.1 Tobacco/Smoking Status: Tobacco use Status Tobacco use date assessed 04/02/25 04/02/25 15:28 Patient Tobacco Use Status Former Tobacco user 04/02/25 15:24 e-Cigarette/Vaping Use Never Used 04/02/25 15:24 Thrive Assessment: Date of Thrive Assessment Date Thrive assessed 08/19/24 04/02/25 15:24 Currently or been in a relationship where the following occur: I choose not to answer Coding Level of Care Code Est Pt Level 4 (32542) Diagnoses Screening for prostate cancer Z12.5 Agitation R45.1 Dementia F03.90 Anoxic brain injury G93.1 Major neurocognitive disorder due to another medical condition with behavioral disturbance F02.818 Assessment & Plan Assessment & Plan (1) Screening for prostate cancer: Code(s): Z12.5 - Encounter for screening for malignant neoplasm of prostate Category: Medical (2) Agitation: Code(s): R45.1 - Restlessness and agitation Category: Medical (3) Dementia: Code(s): F03.90 - Unspecified dementia, unspecified severity, without behavioral disturbance, psychotic disturbance, mood disturbance, and anxiety Category: Medical (4) Anoxic brain injury: Code(s): G93.1 - Anoxic brain damage, not elsewhere classified Category: Medical (5) Major neurocognitive disorder due to another medical condition with behavioral disturbance: Code(s): F02.818 - Dementia in other diseases classified elsewhere, unspecified severity, with other behavioral disturbance Category: Medical Plan . Orders: Orders Prostate Specific Antigen Scr Today Z12.5 - Encounter for screening for malignant neoplasm of prostate
[2025-04-02 15:19] VITALS: BP 112/78; PULSE 59; RESP 16; TEMP 36.8; O2SAT 97; BMI 21.1
--- OUTSIDE RECORDS SUMMARY | 2025-04-02 16:14 | XMS_ITS | Encounter Summary ---
Author Organization [facility] Address [address] [place] [address] Care Team Providers Care Radio Installer Name Role Phone Ariana Sidhu MD Primary Care Provider [phone] Encounter Details Date Type Department Care Team (Late st Contact Info) Description 07/29/2024 Lab Requisition [facility] - Main Lab [address] [facility] [place] [address] Matthew Lynn MD [address] [place] [id number] Encounter for other general examination Social History [...] CBC auto differential (07/29/2024 5:18 AM EST) [facility] WBC 7.2 4.8 - 10.8 K/mcL LAB HEMETOLOGY METHOD 07/29/2024 8:[address] [facility] RBC 3.40(L) 4.50 - 5.50 M/mcL LAB HEMETOLOGY METHOD 07/29/2024 8:[address] [facility] Hemoglobin 10.7(L) 13.5 - 17.5 g/dL LAB HEMETOLOGY METHOD 07/29/2024 8:[address] [facility] Hematocrit 33.0(L) 42.0 - 54.0 % LAB HEMETOLOGY METHOD 07/29/2024 8:[address] [facility] MCV 98.2(H) 79.0 - 98.0 FL LAB HEMETOLOGY METHOD 07/29/2024 8:[address] [facility] MCH 31.8 27.0 - 32.0 pcg LAB HEMETOLOGY METHOD 07/29/2024 8:[address] [facility] MCHC 32.4 32.0 - 37.0 g/dL LAB HEMETOLOGY METHOD 07/29/2024 8:[address] [facility] RDW 18.1(H) 11.0 - 15.0 % LAB HEMETOLOGY METHOD 07/29/2024 8:[address] [facility] Platelets 531(H) 130 - 400 K/mcL LAB HEMETOLOGY METHOD 07/29/2024 8:[address] [facility] MPV 9.7 7.0 - 11.0 FL LAB HEMETOLOGY METHOD 07/29/2024 8:[address] [facility] NRBC 0.0 <1.0 % LAB HEMETOLOGY METHOD 07/29/2024 8:[address] [facility] NRBC Absolute 0.00 <0.10 K/mcL LAB HEMETOLOGY METHOD 07/29/2024 8:[address] [facility] Neutrophils Relative 36.8 % LAB HEMETOLOGY METHOD 07/29/2024 8:[address] [facility] Lymphocytes Relative 50.5 % LAB HEMETOLOGY METHOD 07/29/2024 8:[address] [facility] Monocytes Relative 10.2 % LAB HEMETOLOGY METHOD 07/29/2024 8:[address] [facility] Eosinophils Relative 1.8 % LAB HEMETOLOGY METHOD 07/29/2024 8:[address] [facility] Basophils Relative 0.4 % LAB HEMETOLOGY METHOD 07/29/2024 8:[address] [facility] Immature Granulocytes Relative 0.3 % LAB HEMETOLOGY METHOD 07/29/2024 8:[address] [facility] Neutrophils Absolute 2.63 1.50 - 7.00 K/mcL LAB HEMETOLOGY METHOD 07/29/2024 8:[address] [facility] Lymphocytes Absolute 3.61 1.00 - 5.00 K/mcL LAB HEMETOLOGY METHOD 07/29/2024 8:[address] [facility] Monocytes Absolute 0.73 0.20 - 1.00 K/mcL LAB HEMETOLOGY METHOD 07/29/2024 8:[address] [facility] Eosinophils Absolute 0.13 0.00 - 0.50 K/mcL LAB HEMETOLOGY METHOD 07/29/2024 8:[address] [facility] Basophils Absolute 0.03 0.00 - 0.20 K/mcL LAB HEMETOLOGY METHOD 07/29/2024 8:[address] [facility] Immature Granulocytes Absolute 0.02 0.00 - 0.03 K/mcL LAB HEMETOLOGY METHOD 07/29/2024 8:[address] [facility] Blood Venous blood specimen / Unknown Venipuncture / Unknown 07/29/2024 5:18 AM EST 07/29/2024 7:24 AM EST us Matthew Lynn MD LAB BLOOD ORDERABLES Final Resu lt [facility] [address] [place] [address], [place] [phone] * Magnesium (07/29/2024 5:18 AM EST) Pathologist [facility] Magnesium 2.2 1.9 - 2.6 mg/dL LAB CHEMISTRY METHOD 07/29/2024 9:23 AM EST [facility] Blood Venous blood specimen / Unknown Venipuncture / Unknown 07/29/2024 5:18 AM EST 07/29/2024 7:24 AM EST us Matthew Lynn MD LAB BLOOD ORDERABLES Final Resu lt [facility] [address] [place] [address], [place] [phone] * Comprehensive metabolic panel (07/29/2024 5:18 AM EST) Pathologist [facility] Sodium 137 133 - 145 mmol/L LAB CHEMISTRY METHOD 07/29/2024 9:[address] [facility] Potassium 4.8 3.5 - 5.5 mmol/L LAB CHEMISTRY METHOD 07/29/2024 9:23 AM EST [facility] Chloride 103 96 - 110 mmol/L LAB CHEMISTRY METHOD 07/29/2024 9:23 AM EST [facility] CO2 30 21 - 32 mmol/L LAB CHEMISTRY METHOD 07/29/2024 9:[address] [facility] Anion Gap 4 3 - 11 LAB CHEMISTRY METHOD 07/29/2024 9:[address] [facility] Glucose 84 70 - 100 mg/dL LAB CHEMISTRY METHOD 07/29/2024 9:[address] [facility] BUN 20 5 - 25 mg/dL LAB CHEMISTRY METHOD 07/29/2024 9:[address] [facility] Creatinine 1.19 0.70 - 1.30 mg/dL LAB CHEMISTRY METHOD 07/29/2024 9:[address] [facility] eGFR 67 >=60 mL/min/1. 73m2 LAB CHEMISTRY METHOD 07/29/2024 9:[address] [facility] Comment:Calculation based on the Chronic Kidney Disease Epidemiology Collaboration (CKD-EPI) equation refit without adjustment for race. BUN/Creatinine Ratio 16.8 LAB CHEMISTRY METHOD 07/29/2024 9:[address] [facility] Calcium 9.0 8.5 - 10.5 mg/dL LAB CHEMISTRY METHOD 07/29/2024 9:[address] [facility] AST (SGOT) 29 10 - 42 unit/L LAB CHEMISTRY METHOD 07/29/2024 9:[address] [facility] ALT (SGPT) 42 10 - 60 unit/L LAB CHEMISTRY METHOD 07/29/2024 9:[address] [facility] Alkaline Phosphatase 109 42 - 121 unit/L LAB CHEMISTRY METHOD 07/29/2024 9:[address] [facility] Total Protein 6.6 6.0 - 8.0 g/dL LAB CHEMISTRY METHOD 07/29/2024 9:[address] [facility] Albumin 3.9 3.2 - 5.0 g/dL LAB CHEMISTRY METHOD 07/29/2024 9:[address] [facility] Total Bilirubin 0.4 0.0 - 1.4 mg/dL LAB CHEMISTRY METHOD 07/29/2024 9:[address] [facility] Blood Venous blood specimen / Unknown Venipuncture / Unknown 07/29/2024 5:18 AM EST 07/29/2024 7:24 AM EST us Rami A Ashkar MD LAB BLOOD ORDERABLES Final Resu lt [facility] [address] [place] [address], documented in this encounter Visit Diagnoses Diagnosis Encounter for other general examination documented in this encounter Care Teams Radio Installer Relationship Specialty Start Date End Date Ariana Sidhu MD [address] [place] [address] PCP - General Internal Medicine 04/22/15 documented as of this encounter
--- OUTSIDE RECORDS SUMMARY | 2025-04-02 16:14 | XMS_ITS | Encounter Summary ---
Author Organization [facility] Address [address] [place] [address] Care Team Providers Care Interactive Account Manager Name Role Phone Ariana Sidhu MD Primary Care Provider [phone] Encounter Details Date Type Department Care Team (Late st Contact Info) Description 07/23/2024 Lab Requisition [facility] - Main Lab [address] [facility] [place] [address] Matthew Lynn MD [address] [place] [id number] Encounter for other general examination Social History [...] Thyroid stimulating hormone (07/23/2024 5:35 AM EST) [facility] TSH 1.96 0.40 - 4.00 mcIU/mL LAB CHEMISTRY METHOD 07/23/2024 5:28 PM EST [facility] Blood Venous blood specimen / Unknown Venipuncture / Unknown 07/23/2024 5:35 AM EST 07/23/2024 9:54 AM EST us Matthew Lynn MD LAB BLOOD ORDERABLES Final Resu lt [facility] [address] [place] [address], [place] [phone] * (ABNORMAL) CBC auto differential (07/23/2024 5:35 AM EST) [facility] WBC 7.1 4.8 - 10.8 K/mcL LAB [...] LAB HEMETOLOGY METHOD 07/23/2024 10:44 AM EST [facility] Monocytes Absolute 0.93 0.20 - 1.00 K/[facility] LAB HEMETOLOGY METHOD 07/23/2024 10:44 AM EST [facility] Eosinophils Absolute 0.11 0.00 - 0.50 K/[facility] LAB HEMETOLOGY METHOD 07/23/2024 10:44 AM EST [facility] Basophils Absolute 0.04 0.00 - 0.20 K/[facility] LAB HEMETOLOGY METHOD 07/23/2024 10:44 AM EST [facility]) [facility] Immature Granulocytes Absolute 0.04(H) 0.00 - 0.03 K/[facility] LAB HEMETOLOGY METHOD 07/23/2024 10:44 AM EST [facility] Blood Venous blood specimen / Unknown Venipuncture / Unknown 07/23/2024 5:35 AM EST 07/23/2024 9:54 AM EST us Matthew Lynn MD LAB BLOOD ORDERABLES Final Resu lt Performing Organization Address City/[facility]/ZIP Co de Phone Number [facility] [address] [place] [address], [place] [phone] * Magnesium (07/23/2024 5:35 AM EST) Magnesium 2.3 1.9 - 2.6 mg/dL LAB CHEMISTRY METHOD 07/23/2024 11:15 AM EST [facility] Blood Venous blood specimen / Unknown Venipuncture / Unknown 07/23/2024 5:35 AM EST 07/23/2024 9:54 AM EST us Matthew Lynn MD LAB BLOOD ORDERABLES Final Resu lt [facility] [address] [place] [address], [place] [phone] * (ABNORMAL) Comprehensive metabolic panel (07/23/2024 5:35 [...] AM [facility] Comment:Calculation based on the Chronic [...] LAB CHEMISTRY METHOD 07/23/2024 11:15 AM EST [facility] Alkaline Phosphatase 120 42 - 121 unit/L LAB CHEMISTRY METHOD 07/23/2024 11:15 AM EST [facility] Total Protein 6.9 6.0 - 8.0 g/dL LAB CHEMISTRY METHOD 07/23/2024 11:15 AM EST [facility] Albumin 3.8 3.2 - [...] Resu lt [facility] [address] [place] [address], [place] [phone] documented in this encounter Visit Diagnoses Diagnosis Encounter for other general examination documented in this encounter Care Teams Interactive Account Manager Relationship Specialty Start Date End Date Ariana Sidhu MD [address] [place] [address] PCP - General Internal Medicine 04/22/15 documented as of this encounter
--- OUTSIDE RECORDS SUMMARY | 2025-04-02 16:14 | XMS_ITS | Clinical Summary ---
Author Organization [facility] Address [address] [place] [address] Care Team Providers Care Assistant Director Of Residence Life Name Role Phone Beni Moore MD Primary Care Provider [phone] Allergies Active Allergy Reactions Criticality Noted Date [...] - PCV) 2022 COVID-19 Vaccine (3 - 2024-2 6 season) 2025 10/20/2020, 09/29/2020 Influenza Vaccine (#1) 2025 03/22/2021 [...] age to complete this topic Care Teams Assistant Director Of Residence Life Relationship Specialty Start Date End Date Beni Moore MD PCP - General Internal Medicine 08/09/21
--- OUTSIDE RECORDS SUMMARY | 2025-04-02 16:14 | XMS_ITS | Clinical Summary ---
Author Organization [facility] [address] [place] [address] [place] [phone] Phone Care Team Providers Care Demolition Hammer Operator Name Role Phone Ariana Sidhu MD Primary Care Provider Allergies Active Allergy [...] mcg by mouth daily. 08/06/2021 Active cloNIDine ([id number]) 0.1 mg/[address] 0.1 mg onto [...] Problem Noted Date Diagnosed Date Seizure disorder ([facility] V24, [facility] V28) 07/0 12/2020 Anoxic brain injury ([facility] V24, [facility] V28) 0 08/11/2020 Overview (06/29/2024): S/p NSTEMI 05/27/20 and cardiac arrest CAD (coronary artery disease) 08/11/2020 Overview (06/29/2024): 05/27/20: Inferior STEMI s/p fibrinolytics, Cardiac Arrest s/p ROSC Leukocytosis 08/11/2020 Overview (06/29/2024): WBC: 11 08/2020 Erectile dysfunction 08/08/2018 HTN (hypertension) 11/03/2016 Hyperlipidemia 11/03/2016 Thrombocytosis 09/02/2015 Overview (06/29/2024): Dr. Solorzano - check CBC twice per year Immunizations Immunization Administration Dates Next Due Influenza Quadravalent, MDCK [...] DX:Histo ry of heart attack Brain injury (CMS/HCC V24, CMS/HCC V28) DX:Brain injury (HCC); COMMENT: Due to delayed [...] Health Maintenance Due Date Last Done Comments Colorectal Cancer Screening: Colonoscopy 1957 Zoster Vaccines (1 of 2) 2007 Medicare Annual Wellness Visit 06/09/2022 Social Influencers of Health Screening 06/09/2022 Falls Risk Assessment 2022 Depression Screening 07/03/2024 COVID-19 Vaccine (2024-2 6 season) 2025 08/23/2021, 10/20/2020, 09/29/2020 Influenza Vaccine (#1) 2025 2, 03/22/2021 Hypertension/CHF/CAD Annual BMP Blood Test 07/29/2025 07/29/2024, 07/23/2024, 03/10/2022 Cholesterol Screening (Lipid Panel) 09/09/2027 09/08/2022 DTaP,Tdap,and Td Vaccines (3 - Td or Tdap) 08/08/2028 08/08/2018, 04/28/2012 RSV Immunization Adult Patients (1 - 1-dose 75+ series) 2032 Hepatitis C Screening Completed 11/03/2016 Pneumococcal Vaccine: [...] age to complete this topic Meningococcal B Vaccine Aged Out No l onger eligible based on patient's age to complete this topic RSV Immunization Patients Under 20 months Aged Out No longer eligible b ased on patient's age to complete this topic Varicella Vaccines Aged Out No longer eligible based on patient's age to complete this topic Procedures Procedure Name Priority Date/Time Associated Diagnosis Comments COMPREHENSIVE METABOLIC PANEL Routine 07/29/2024 5:18 AM EST Encounter for other general examination US ABDOMINAL AORTA REAL TIME SCREEN STUDY AAA Routine 09/29/2022 9:09 AM EDT Encounter for screening for cardiovascular disorders LIPID PANEL Routine 09/08/2022 HM HEPATITIS C SCREENING Routine 11/03/2016 from Last 3 Months or Most Recently Relevant to Health Maintenance Results * Comprehensive metabolic panel (07/29/2024 5:18 AM EST) Sodium 137 133 - 145 mmol/L LAB [...] [facility] Comment:Calculation based on the Chronic Kidney [...] unit/L LAB CHEMISTRY METHOD 07/29/2024 9:23 AM EST [facility] Total Protein 6.6 6.0 - 8.0 g/dL LAB CHEMISTRY METHOD 07/29/2024 9:23 AM EST [facility] Albumin 3.9 3.2 - 5.0 g/dL LAB CHEMISTRY METHOD 07/29/2024 9:23 AM EST [facility] Total Bilirubin 0.4 0.0 - 1.4 mg/dL LAB CHEMISTRY METHOD 07/29/2024 9:23 AM EST [facility] Blood Venous blood specimen / Unknown Venipuncture / Unknown 07/29/2024 5:18 AM EST 07/29/2024 7:24 AM EST us Matthew Lynn MD LAB BLOOD ORDERABLES Final Resu lt [facility] [address] [place] [address], [place] [phone] * US ABDOMINAL AORTA REAL TIME SCREEN [...] aneurysm. Ariana Sidhu MD IM US PROCEDURES Final Result * (ABNORMAL) Lipid panel (09/08/2022) LDL/HDL Ratio 3 0 - 4 Triglycerides 52 0 - 150 mg/dL Cholesterol 90 0 - 200 mg/dL HDL 36(A) >=40 mg/dL LDL Cholesterol 44 0 - 100 mg/dL Blood Venous blood specimen / Unknown Historical Provider LAB BLOOD ORDERABLES Maggie l Result * Hepatitis C Screening (11/03/2016) Pathologist [facility] Hepatitis C Screening ABSTRACTED Historical Provider HEALTH MAINTENANCE Final Result from Last 3 Months or Most Recently Relevant to Health Maintenance Insurance MEDICARE Care Teams Demolition Hammer Operator Relationship Specialty Start Date End Date Ariana Sidhu MD [address] [place] [phone] PCP - General Internal Medicine 04/22/15
== END 2025-04-02 16:12 | disposition home or self-care (01) ==
LOC: HO.HMCC 15:13
PROVIDERS: PCP Nurse Practitioner Family; Visit Provider Nurse Practitioner Family
DX: F03.90 Unspecified dementia, unspecified severity, without behavioral disturbance, psychotic disturbance, mood disturbance, and anxiety (principal); G93.1 Anoxic brain damage, not elsewhere classified; F02.818 Dementia in other diseases classified elsewhere, unspecified severity, with other behavioral disturbance; Z12.5 Encounter for screening for malignant neoplasm of prostate; R45.1 Restlessness and agitation

== ENCOUNTER → 2025-04-02 15:12 | Outpatient (BNVA) | payer MEDICARE, SELFPAY | PROVIDERS: PCP Nurse Practitioner Family; Visit Provider Nurse Practitioner Family | DX: R45.1 Restlessness and agitation (principal); R32 Unspecified urinary incontinence; R26.81 Unsteadiness on feet; G93.1 Anoxic brain damage, not elsewhere classified; F02.818 Dementia in other diseases classified elsewhere, unspecified severity, with other behavioral disturbance; Z79.899 Other long term (current) drug therapy | CPT/HCPCS: 99212 ==

== ENCOUNTER → 2025-04-04 17:04 | Outpatient (BNV) | payer MEDICARE, SELFPAY | PROVIDERS: Emergency Provider Emergency Medicine; PCP Nurse Practitioner Family; Visit Provider Nurse Practitioner Psychiatric/Mental Health | DX: F03.918 Unspecified dementia, unspecified severity, with other behavioral disturbance (principal); G93.1 Anoxic brain damage, not elsewhere classified | CPT/HCPCS: 99222; 99283 ==

== ENCOUNTER → 2025-04-06 09:43 | Outpatient (BNV) | payer MEDICARE, SELFPAY | PROVIDERS: Emergency Provider Emergency Medicine; PCP Nurse Practitioner Family; Visit Provider Internal Medicine Cardiovascular Disease | DX: I45.2 Bifascicular block (principal) | CPT/HCPCS: 93010 ==

== ENCOUNTER → 2025-04-09 23:51 | Outpatient (BNV) | payer MEDICARE, SELFPAY | PROVIDERS: Emergency Provider Emergency Medicine; PCP Nurse Practitioner Family; Visit Provider Internal Medicine Cardiovascular Disease | DX: I45.2 Bifascicular block (principal) | CPT/HCPCS: 93010 ==

== ENCOUNTER → 2025-04-13 21:57 | Outpatient (BNV) | payer MEDICARE, SELFPAY | PROVIDERS: Emergency Provider Emergency Medicine; PCP Nurse Practitioner Family; Visit Provider Internal Medicine Cardiovascular Disease | DX: I45.2 Bifascicular block (principal) | CPT/HCPCS: 93010 ==

== ENCOUNTER 2025-04-16 12:07 | Outpatient (BNV) | payer MEDICARE, SELFPAY | END 2025-04-27 07:24 | PROVIDERS: Admitting Provider Internal Medicine; Emergency Provider Emergency Medicine; PCP Nurse Practitioner Family; Visit Provider Radiology Vascular & Interventional Radiology | DX: R41.82 Altered mental status, unspecified (principal); R53.83 Other fatigue | CPT/HCPCS: 70450 ==

== ENCOUNTER 2025-04-16 12:07 | Outpatient (BNV) | payer MEDICARE, SELFPAY | END 2025-05-06 15:00 | PROVIDERS: Admitting Provider Internal Medicine; Emergency Provider Emergency Medicine; PCP Nurse Practitioner Family; Visit Provider Internal Medicine Cardiovascular Disease | DX: R07.9 Chest pain, unspecified (principal); R94.31 Abnormal electrocardiogram [ECG] [EKG] | CPT/HCPCS: 93010 ==

== ENCOUNTER 2025-04-16 12:07 | Outpatient (BNV) | payer MEDICARE, SELFPAY | END 2025-04-25 08:00 | PROVIDERS: Admitting Provider Internal Medicine; Emergency Provider Emergency Medicine; PCP Nurse Practitioner Family; Visit Provider Internal Medicine Cardiovascular Disease | DX: I45.2 Bifascicular block (principal) | CPT/HCPCS: 93010 ==

== ENCOUNTER 2025-04-16 12:07 | Outpatient (BNV) | payer MEDICARE, SELFPAY | END 2025-04-24 13:38 | PROVIDERS: Admitting Provider Internal Medicine; Emergency Provider Emergency Medicine; PCP Nurse Practitioner Family; Visit Provider Internal Medicine Cardiovascular Disease | DX: I45.2 Bifascicular block (principal) | CPT/HCPCS: 93010 ==

== ENCOUNTER 2025-04-16 12:07 | Outpatient (BNV) | payer MEDICARE, SELFPAY | END 2025-04-22 15:00 | PROVIDERS: Admitting Provider Internal Medicine; Emergency Provider Emergency Medicine; PCP Nurse Practitioner Family; Visit Provider Psychiatry & Neurology Neurology | DX: R56.9 Unspecified convulsions (principal) | CPT/HCPCS: 95816 ==

== ENCOUNTER 2025-04-16 12:07 | Outpatient (BNV) | payer MEDICARE, SELFPAY | END 2025-04-22 08:28 | PROVIDERS: Admitting Provider Internal Medicine; Emergency Provider Emergency Medicine; PCP Nurse Practitioner Family; Visit Provider Radiology Diagnostic Radiology | DX: I50.9 Heart failure, unspecified (principal) | CPT/HCPCS: 70450; 71045 ==

== ENCOUNTER 2025-04-16 12:07 | Outpatient (BNV) | payer MEDICARE, SELFPAY | END 2025-04-26 18:09 | PROVIDERS: Admitting Provider Internal Medicine; Emergency Provider Emergency Medicine; PCP Nurse Practitioner Family; Visit Provider Internal Medicine Cardiovascular Disease | DX: I45.2 Bifascicular block (principal) | CPT/HCPCS: 93010 ==

== ENCOUNTER 2025-04-16 12:07 | Outpatient (BNV) | payer MEDICARE, SELFPAY | END 2025-05-05 08:30 | PROVIDERS: Admitting Provider Internal Medicine; Emergency Provider Emergency Medicine; PCP Nurse Practitioner Family; Visit Provider Psychiatry & Neurology Neurology | DX: R56.9 Unspecified convulsions (principal); R94.01 Abnormal electroencephalogram [EEG] | CPT/HCPCS: 95819 ==

== ENCOUNTER 2025-04-16 12:07 | Outpatient (BNV) | payer MEDICARE, SELFPAY | END 2025-04-25 08:13 | PROVIDERS: Admitting Provider Internal Medicine; Emergency Provider Emergency Medicine; PCP Nurse Practitioner Family; Visit Provider Radiology Body Imaging | DX: R50.9 Fever, unspecified (principal) | CPT/HCPCS: 71045 ==

== ENCOUNTER → 2025-04-16 12:07 | Outpatient (BNV) | payer MEDICARE, SELFPAY | PROVIDERS: Admitting Provider Internal Medicine; Emergency Provider Emergency Medicine; PCP Nurse Practitioner Family; Visit Provider Internal Medicine Cardiovascular Disease | DX: R94.31 Abnormal electrocardiogram [ECG] [EKG] (principal) | CPT/HCPCS: 99222 ==

== ENCOUNTER → 2025-04-16 12:07 | Outpatient (BNV) | payer MEDICARE, SELFPAY | PROVIDERS: Admitting Provider Internal Medicine; Emergency Provider Emergency Medicine; PCP Nurse Practitioner Family; Visit Provider Internal Medicine | DX: F02.818 Dementia in other diseases classified elsewhere, unspecified severity, with other behavioral disturbance (principal) | CPT/HCPCS: 99223; 99232; 99233; 99499 ==

== ENCOUNTER → 2025-04-16 12:07 | Outpatient (BNV) | payer MEDICARE, SELFPAY | PROVIDERS: Admitting Provider Internal Medicine; Emergency Provider Emergency Medicine; PCP Nurse Practitioner Family; Visit Provider Psychiatry & Neurology Neurology | DX: R56.9 Unspecified convulsions (principal); G93.1 Anoxic brain damage, not elsewhere classified; F03.90 Unspecified dementia, unspecified severity, without behavioral disturbance, psychotic disturbance, mood disturbance, and anxiety; F02.818 Dementia in other diseases classified elsewhere, unspecified severity, with other behavioral disturbance | CPT/HCPCS: 99222 ==